=== PATIENT | male | born 1970 | race Caucasian/White ===

== ENCOUNTER → 2017-04-22 09:30 | Outpatient (CLI) | payer OTHER, SELFPAY ==
[2017-04-22 11:26] LABS: AST(SGOT) 23 U/L (15-37); Alanine Aminotransfer ALT/SGPT 43 U/L (16-61); Albumin, Serum 3.6 g/dL (3.2-5.0); Alkaline Phosphatase 79 U/L (45-117); Anion Gap 7 (5-15); BUN 15 mg/dL (7-18); BUN/Creat Ratio 15.6 RATIO (10-20); Calcium,Total 8.5 mg/dL (8.5-10.1); Chloride 103 mmol/L (98-107); Cholesterol 205 mg/dL (200); Creatinine, Serum 0.96 mg/dL (0.70-1.30); EST Glomerular Filtration Rate 89 mL/min (>60); Est Glom Filt Rate - Afr Amer 108 mL/min (>60); Globulin 3.7 g/dL (2.2-4.2); Glucose 95 mg/dL (74-106); High Density Lipoprotein 36 mg/dL; Potassium 4.1 mmol/L (3.5-5.1); Protein, Total 7.3 g/dL (6.4-8.2); Sodium Level 137 mmol/L (136-145); Triglycerides 172 mg/dL; Very Low Density Lipoprotein 34 mg/dL (5-40)
== END ==
PROVIDERS: Family Provider Family Medicine; PCP Family Medicine
DX: E78.2 Mixed hyperlipidemia (principal)
CPT/HCPCS: 36415; 80053; 80061

== ENCOUNTER → 2017-12-02 06:53 | Outpatient (CLI) | payer OTHER, SELFPAY ==
[2017-12-02 07:43] LABS: Cholesterol 219 mg/dL (200); Glucose 98 mg/dL (74-106); High Density Lipoprotein 37 mg/dL; Triglycerides 147 mg/dL; Very Low Density Lipoprotein 29 mg/dL (5-40)
== END ==
PROVIDERS: Family Provider Family Medicine; PCP Family Medicine; Referring Provider Nurse Practitioner Family; Visit Provider Nurse Practitioner Family
DX: Z13.6 Encounter for screening for cardiovascular disorders (principal); Z13.1 Encounter for screening for diabetes mellitus
CPT/HCPCS: 36415; 80061; 82947

== ENCOUNTER 2018-04-29 12:37 | Emergency (ER) | payer OTHER, SELFPAY ==
[2018-04-29 12:40] VITALS: BP 184/104; PULSE 91; RESP 16; TEMP 36.1; O2SAT 97; BMI 46.5
[2018-04-29] MEDS: Ketorolac 15 MG/ML Vial IV (14:17)
[2018-04-29] MEDS: morphine 8 MG/ML Syringe 6 MG IV (14:17)
--- NOTE | 2018-04-29 14:53 | ED.VISSUMM ---
- ER Visit Summary Date of Service: 04/29/18 Chief Complaint: Right low back pain with radiation L3 dermatome History of Present Illness: The patient is a 47 M who was getting out of a truck and slipped. He had a near fall. He thought he tweaked his back. He states the pain is gotten worse. He prefers to lean forward. He straightens up or asked dense his leg backward he complains of pain in an L3 dermatomal distribution. He denies foot drop. He has not gone up any steps since the near fall. He denies bowel bladder dysfunction. He denies saddle paresthesia or anesthesia. He prefers to stand versus sitting. He has no known history of back problems. He denies any cardiac, respiratory, GI or symptoms. He denies any skin lesions. He denies any other symptoms. Physical Examination: Vital signs noted and blood pressure is elevated 184/104. BMI is 46.5. HEENT exam is grossly unremarkable. Heart is regular without murmur, gallop or rub. Lungs are clear to auscultation. Abdomen soft nontender no palpable cell mass abdominal bruit. Positive femoral stretch test right. Patella and ankle reflex are 1-2+ and symmetric. EHL is intact. He is able to walk on his heels and toes. He is able to do a 1 legged squat right and left. He has normal perianal sensation. There is no pain to palpation of the low back. Test Results: None were obtained Emergency Department Course and Treatment: IV was established and he received 50 mg of Toradol IV push and morphine IV push. He was reassessed at 1450. He reports marked improvement. Treatment Plan: Follow-up with corporate care and prescription for NSAID and opiate analgesia Disposition: Discharge to home in stable improved condition with outpatient follow-up Impression: Acute right lower back pain with L3 radiculopathy This note was generated with [employer] dictation software. It may contain incorrect words, spelling, and punctuation that were not noted in review of the chart prior to signing ED Disposition - Plan for ED Patient: Disposition: Home or Assisted Living Instructions: ED Sciatica Prescriptions: Hydrocodone Bitart/Apap 5-325 [[place] 5MG-325MG] 1 tab PO Q6H PRN PRN 3 Days #10 tab PRN Reason: Pain Naproxen [Naprosyn] 500 mg PO BID #14 tab Referrals: Marilyn Hummel, NIKO-C [Primary Care Provider] - [facility] [GROUP OF PHYSICIANS] - 2 Days Additional Instructions: No lifting anything heavier than a gallon of milk, take medication as prescribed. If you have difficulty going up or down steps because of weakness in your quadricep muscle or develop severe pain that is not relieved or improved with medications prescribed return to the emergency department for repeat evaluation. Otherwise, follow-up with [facility] care.
--- NOTE | 2018-04-29 14:58 | ED.DCSUM_ITS ---
- ER Visit Summary Date of Service: 04/29/18 Chief Complaint: Right low back pain with radiation L3 dermatome History of Present Illness: The patient is a 47 M who was getting out of a truck and slipped. He had a near fall. He thought he tweaked his back. He states the pain is gotten worse. He prefers to lean forward. He straightens up or asked dense his leg backward he complains of pain in an L3 dermatomal distribution. He denies foot drop. He has not gone up any steps since the near fall. He denies bowel bladder dysfunction. He denies saddle paresthesia or anesthesia. He prefers to stand versus sitting. He has no known history of back problems. He denies any cardiac, respiratory, GI or symptoms. He denies any skin lesions. He denies any other symptoms. Physical Examination: Vital signs noted and blood pressure is elevated 184/104. BMI is 46.5. HEENT exam is grossly unremarkable. Heart is regular without murmur, gallop or rub. Lungs are clear to auscultation. Abdomen soft nontender no palpable cell mass abdominal bruit. Positive femoral stretch test right. Patella and ankle reflex are 1-2+ and symmetric. EHL is intact. He is able to walk on his heels and toes. He is able to do a 1 legged squat right and left. He has normal perianal sensation. There is no pain to palpation of the low back. Test Results: None were obtained Emergency Department Course and Treatment: IV was established and he received 50 mg of Toradol IV push and morphine IV push. He was reassessed at 1450. He reports marked improvement. Treatment Plan: Follow-up with corporate care and prescription for NSAID and opiate analgesia Disposition: Discharge to home in stable improved condition with outpatient follow-up Impression: Acute right lower back pain with L3 radiculopathy This note was generated with [employer] dictation software. It may contain incorrect words, spelling, and punctuation that were not noted in review of the chart prior to signing ED Disposition - Plan for ED Patient: Disposition: Home or Assisted Living Instructions: ED Sciatica Prescriptions: Hydrocodone Bitart/Apap 5-325 [[place] 5MG-325MG] 1 tab PO Q6H PRN PRN 3 Days #10 tab PRN Reason: Pain Naproxen [Naprosyn] 500 mg PO BID #14 tab Referrals: Marilyn Hummel, NIKO-C [Primary Care Provider] - [facility] [GROUP OF PHYSICIANS] - 2 Days Additional Instructions: No lifting anything heavier than a gallon of milk, take medication as prescribed. If you have difficulty going up or down steps because of weakness in your quadricep muscle or develop severe pain that is not relieved or improved with medications prescribed return to the emergency department for repeat evaluation. Otherwise, follow-up with [facility] care.
[2018-04-29 15:35] VITALS: PULSE 87; RESP 17; O2SAT 98
== END 2018-04-29 15:36 | disposition home or self-care (01) ==
PROVIDERS: Emergency Provider Emergency Medicine; Family Provider Nurse Practitioner Family; PCP Nurse Practitioner Family
DX: M54.5 Low back pain (principal); M54.16 Radiculopathy, lumbar region; W18.43XA Slipping, tripping and stumbling without falling due to stepping from one level to another, initial encounter; Y93.9 Activity, unspecified; Y92.9 Unspecified place or not applicable; E66.9 Obesity, unspecified; Z68.42 Body mass index [BMI] 45.0-49.9, adult
CPT/HCPCS: 96374; 96375; 99283; A4216

== ENCOUNTER → 2018-05-31 06:50 | Outpatient (CLI) | payer OTHER, SELFPAY ==
[2018-05-07 07:52] VITALS: BMI 47.9
[2018-05-31 08:06] LABS: AST(SGOT) 36 U/L (15-37); Alanine Aminotransfer ALT/SGPT 51 U/L (16-61); Albumin, Serum 3.8 g/dL (3.2-5.0); Alkaline Phosphatase 78 U/L (45-117); Anion Gap 5 (5-15); BUN 16 mg/dL (7-18); BUN/Creat Ratio 15.7 RATIO (10-20); Calcium,Total 9.1 mg/dL (8.5-10.1); Chloride 105 mmol/L (98-107); Cholesterol 215 mg/dL (200); Creatinine, Serum 1.02 mg/dL (0.70-1.30); EST Glomerular Filtration Rate 83 mL/min (>60); Est Glom Filt Rate - Afr Amer 100 mL/min (>60); Globulin 3.7 g/dL (2.2-4.2); Glucose 107 mg/dL (74-106); High Density Lipoprotein 40 mg/dL; Potassium 4.1 mmol/L (3.5-5.1); Protein, Total 7.5 g/dL (6.4-8.2); Sodium Level 138 mmol/L (136-145); Triglycerides 237 mg/dL; Very Low Density Lipoprotein 47 mg/dL (5-40)
== END ==
PROVIDERS: Family Provider Nurse Practitioner Family; PCP Nurse Practitioner Family; Referring Provider Nurse Practitioner Family; Visit Provider Nurse Practitioner Family
DX: E78.2 Mixed hyperlipidemia (principal)
CPT/HCPCS: 36415; 80053; 80061

== ENCOUNTER → 2018-07-06 | Outpatient (CLI) | payer OTHER, SELFPAY ==
[2018-05-07 07:52] VITALS: BMI 47.9
== END | disposition home or self-care (01) ==
LOC: SL 19:59
PROVIDERS: Family Provider Nurse Practitioner Family; PCP Nurse Practitioner Family; Visit Provider Nurse Practitioner Family
DX: G47.33 Obstructive sleep apnea (adult) (pediatric) (principal); J31.0 Chronic rhinitis
CPT/HCPCS: 95811

== ENCOUNTER → 2018-07-14 | Outpatient (CLI) | payer OTHER, SELFPAY ==
[2018-05-07 07:52] VITALS: BMI 47.9
--- NOTE | 2018-07-14 16:47 | CT_ITS ---
STUDY: CT MAXILLOFACIAL SINUSES REASON FOR EXAM: Male, 47 years old. Sinusitis. RADIATION DOSAGE (If Supplied By Facility): CTDIvol = ( 33.06 ) mGy, DLP = ( 871.04 ) mGycm TECHNIQUE: The patient was scanned in a multi detector CT scanner. High resolution axial imaging was performed without the administration of intravenous contrast material. Sagittal and coronal images were reconstructed. Individualized dose optimization techniques were used for this CT. COMPARISON: None. FINDINGS: FRONTAL SINUSES: Normal aeration, without mucosal inflammatory disease. ETHMOIDAL SINUSES: Normal aeration, without mucosal inflammatory disease. MAXILLARY SINUSES: Normal aeration, without mucosal inflammatory disease. SPHENOIDAL SINUSES: Normal aeration, without mucosal inflammatory disease. There is patency of the bilateral maxillary infundibuli with normal uncinate processes, ethmoid bullae, and hiatus semilunaris. Normal bilateral middle turbinates. Normal bilateral inferior turbinates. Moderate right nasal septal deviation with a horizontal spur at the level of the pedicle of the right inferior turbinate. There is patency of the bilateral nasal airways. The visualized osseous structures are normal. The visualized bilateral orbital contents are normal. CT/Sinus/Facial Bone IMPRESSION: 1. No CT evidence of acute or chronic sinusitis. 2. Bilaterally patent ostiomeatal units. 3. Moderate right nasal septal deviation with a horizontal spur at the level of the right inferior turbinate pedicle. Electronically Signed: Marquis Shaw MD at 13:51 EDT , Service support ,
== END | disposition home or self-care (01) ==
LOC: CT 16:45
PROVIDERS: Family Provider Nurse Practitioner Family; PCP Nurse Practitioner Family; Referring Provider Otolaryngology; Visit Provider Otolaryngology
DX: J32.9 Chronic sinusitis, unspecified (principal)
CPT/HCPCS: 70486

== ENCOUNTER → 2018-08-30 | Outpatient (CLI) | payer OTHER, SELFPAY ==
[2018-05-07 07:52] VITALS: BMI 47.9
[2018-08-30 09:22] LABS: ALB/GLOB Ratio 0.9 RATIO (0.9-2.4); AST(SGOT) 29 U/L (15-37); Alanine Aminotransfer ALT/SGPT 54 U/L (16-61); Albumin, Serum 3.4 g/dL (3.2-5.0); Alkaline Phosphatase 76 U/L (45-117); Anion Gap 7 (5-15); BUN 10 mg/dL (7-18); BUN/Creat Ratio 9.4 RATIO (10-20); Calcium,Total 8.8 mg/dL (8.5-10.1); Chloride 106 mmol/L (98-107); Cholesterol 210 mg/dL (200); Creatinine, Serum 1.06 mg/dL (0.70-1.30); EST Glomerular Filtration Rate 79 mL/min (>60); Est Glom Filt Rate - Afr Amer 96 mL/min (>60); Globulin 3.7 g/dL (2.2-4.2); Glucose 103 mg/dL (74-106); High Density Lipoprotein 39 mg/dL; Potassium 4.2 mmol/L (3.5-5.1); Protein, Total 7.1 g/dL (6.4-8.2); Sodium Level 142 mmol/L (136-145); Triglycerides 170 mg/dL; Very Low Density Lipoprotein 34 mg/dL (5-40)
[2018-08-30 09:35] LABS: Hemoglobin A1c 5.8 % (4.2-6.3)
== END | disposition home or self-care (01) ==
LOC: LAB 07:49
PROVIDERS: Family Provider Nurse Practitioner Family; PCP Nurse Practitioner Family; Referring Provider Nurse Practitioner Family; Visit Provider Nurse Practitioner Family
DX: E78.2 Mixed hyperlipidemia (principal); R73.01 Impaired fasting glucose
CPT/HCPCS: 36415; 80053; 80061; 83036

== ENCOUNTER → 2018-11-24 07:03 | Outpatient (CLI) | payer OTHER, SELFPAY ==
[2018-05-07 07:52] VITALS: BMI 47.9
[2018-11-24 07:47] LABS: ALB/GLOB Ratio 0.8 RATIO (0.9-2.4); AST(SGOT) 37 U/L (15-37); Alanine Aminotransfer ALT/SGPT 60 U/L (16-61); Albumin, Serum 3.4 g/dL (3.2-5.0); Alkaline Phosphatase 88 U/L (45-117); Anion Gap 3 (5-15); BUN 13 mg/dL (7-18); BUN/Creat Ratio 11.5 RATIO (10-20); Calcium,Total 8.7 mg/dL (8.5-10.1); Chloride 105 mmol/L (98-107); Cholesterol 178 mg/dL (200); Creatinine, Serum 1.13 mg/dL (0.70-1.30); EST Glomerular Filtration Rate 73 mL/min (>60); Est Glom Filt Rate - Afr Amer 89 mL/min (>60); Globulin 4.1 g/dL (2.2-4.2); Glucose 136 mg/dL (74-106); High Density Lipoprotein 35 mg/dL; Potassium 3.9 mmol/L (3.5-5.1); Protein, Total 7.5 g/dL (6.4-8.2); Sodium Level 138 mmol/L (136-145); Triglycerides 211 mg/dL; Very Low Density Lipoprotein 42 mg/dL (5-40)
[2018-11-24 08:20] LABS: Hemoglobin A1c 5.8 % (4.2-6.3)
== END ==
PROVIDERS: Family Provider Nurse Practitioner Family; PCP Nurse Practitioner Family; Referring Provider Nurse Practitioner Family; Visit Provider Nurse Practitioner Family
DX: E78.5 Hyperlipidemia, unspecified (principal); R73.03 Prediabetes
CPT/HCPCS: 36415; 80053; 80061; 83036

== ENCOUNTER → 2018-12-10 08:15 | Outpatient (CLI) | payer OTHER, SELFPAY ==
[2018-12-09 07:55] VITALS: BMI 47.9
--- NOTE | 2018-12-10 08:28 | VDLE_ITS ---
Reason For Study: Left leg swelling RIGHT LEFT GSV is normal. GSV is normal. CFV is compressible, spontaneous, phasic, CFV is compressible, spontaneous, phasic, competent and demonstrates normal competent, and demonstrates normal augmentation. augmentation. FV is compressible, spontaneous, phasic, FV is compressible, spontaneous, phasic, competent and demonstrates normal competent and demonstrates normal augmentation. augmentation. POP V is compressible, spontaneous, phasic, POP V is compressible, spontaneous, phasic, competent and demonstrates normal competent and demonstrates normal augmentation. augmentation. T/P Trunk is compressible. T/P Trunk is compressible. PTV is compressible. PTV is compressible. RT PerV is compressible. LT PerV is compressible. Procedure Exam performed in department. A preliminary report was called and/or faxed to [facility]. Interpretation Summary No evidence for acute deep venous thrombosis bilateral lower extremities with patent and compressible bilateral great saphenous veins. Ordering Physician: Tucker Reese Referring Physician: Marilyn Hummel Performed By: Sera Maynard RVT
== END ==
PROVIDERS: Family Provider Nurse Practitioner Family; PCP Nurse Practitioner Family; Referring Provider Surgery; Visit Provider Surgery
DX: M79.89 Other specified soft tissue disorders (principal)
CPT/HCPCS: 93970

== ENCOUNTER 2018-12-17 07:54 | Day surgery (SDC) | payer OTHER, SELFPAY ==
[2018-12-09 07:55] VITALS: BMI 47.9
--- NOTE | 2018-12-09 07:55 | HP_ITS ---
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 Is patient in pain?: No Allergies No Known Allergies Allergy (Verified 12/09/18 07:42) Medications Naproxen [Naprosyn] 500 mg PO BID #14 tab 04/29/18 [Rx Confirmed 12/09/18] amoxicillin 875 mg-potassium clavulanate 125 mg tablet 1 tab PO Q12H #20 tab 12/09/18 [History Confirmed 12/09/18] PFSH Medical History (Updated 12/09/18 @ 07:52 by Tucker Reese MD) Leg swelling (Acute) Family history of colon cancer in father (Acute) Prediabetes (Acute) CORBIN on CPAP (Acute) Morbid obesity (Acute) Hyperlipidemia (Acute) GERD (gastroesophageal reflux disease) (Acute) Low back strain (Acute) Radiculopathy, lumbar region (Acute) Surgical History (Updated 12/09/18 @ 07:39 by Stephanie Steel) History of placement of ear tubes (Acute) Hx of left inguinal hernia repair (Acute) Hx of tonsillectomy (Acute) Family History (Updated 12/09/18 @ 07:40 by Stephanie Steel) Father Colon cancer Mother Hypertension Thyroid disorder CVA (cerebral vascular accident) Myocardial infarction Social History (Updated 12/09/18 @ 07:55 by Tucker Reese MD) Smoking Status: Never smoker second hand exposure: No alcohol intake: current details: 1x a month substance use type: does not use caffeine: Yes what type of physical activity do you participate in: none, other HPI HPI HPI: KAMALA BRASWELL is a 48 M who presents to the office today for HPI HPI Surgical H&P: Yes HPI: KAMALA STILES, is a 48 M who presents to the office today for family history of colon cancer in his father. He has never had a colonoscopy. For the past year and a half he has had some low back pain when he defecates. Otherwise he does not have the pain. Heat for 3 weeks has had some intermittent swelling of his left lower extremity. 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 He is not sure whether the left leg swelling is secondary to that. He has been utilizing some compression to assist with the swelling. He does not have pain has not had a venous duplex exam. He has not noticed any bright red blood per rectum or melena. No current abdominal pain. Body weight is 325 pounds with a BMI of 47.9. He does have sleep apnea. He utilizes BiPAP. He has recently been on a burst dose of prednisone and decongestants because of fluid involving his left ear with a degree of hearing loss The patient is referred by his primary care provider Marilyn Hummel NP and a written copy of my surgical consult and recommendations will be returned to her ROS General General: Yes weight change and fatigue; no appetite, colon cancer, breast cancer or weakness HEENT HEENT: No difficulty swallowing, eye injury, eye surgery, swollen glands or hoarseness Endo Endocrine: No thyroid disease, diabetes mellitus, thyroid cancer, Hair loss, heat intolerance or cold intolerance Skin Skin: Yes changing moles; no rash Musc Musculoskeletal: No back problems, arthritis, rheumatoid arthritis, gout or joint pain Cardio Cardiovascular: No murmur, pacemaker, heart disease, atrial fibrillation, high blood pressure, heart attack, heart stent, palpitations, shortness of breat with exertion or chest pain Psych Psychiatric: No depression, anxiety or hearing voices Resp Respiratory: Yes shortness of breath, Yes sleep apnea, No cough, No COPD, No asthma, No emphysema, No wheezing Gastro Gastrointestinal: No abdominal pain, No nausea or vomiting, No diarrhea, No constipation, Yes blood in stool, No acid reflux, No hemorrhoids, No ulcers, No gallbladder problem, No black,tarry stools Justin Hematologic: No blood thinners, No blood disorders, No bleeding, No anemia, No blood clots Neuro Neurologic: No weakness Exam Const General: cooperative, comfortable, no acute distress Nutritional Appearance: obese morbidly obese Orientation: alert, awake, oriented x3 Neck Neck: other (Thick) Chest Other: Increased anterior posterior Resp Effort & Inspection: normal respiratory effort Auscultation: clear to auscultation bilaterally Cardio Rate: regular rate Rhythm: regular rhythm Heart Sounds: no murmurs GI Other: Notably overweight. Mild tenderness to deep palpation left lower quadrant no mass or rebound Normal bowel sounds Neuro Cognition: normal cognition Extrem Other: Mild left lower extremity swelling more so than the right. Nontender Psych Affect: normal affect Assessment & Plan Problems 1. Midline low back pain without sciatica, unspecified chronicity M54.5 2. Family history of colon cancer in father Z80.0 3. Leg swelling M79.89 Plan 48-year-old gentleman who has back pain with defecation and a family history of colon cancer in his father. He has never had a previous colonoscopy. I recommend colonoscopy with possible biopsy or polypectomy as indicated. He is aware of the technique, benefits, risks and alternatives. He has sleep apnea. He has had some ear congestion with hearing loss and will be seeing Dr. Young. We will utilize monitored anesthesia care. He has had 3-week onset of left lower extremity swelling more so than the right. BMI is 57. He travels and drives a lot. I recommend venous duplex imaging. I briefly discussed with him his concerns that he is prediabetic. He states that he has been trying to lose weight but instead has placed on 19 pounds. I suggested him that he consider bariatric consultation. I appreciate the opportunity of assisting with the surgical care. Cc: NIKO Escalona M.D., F.A.C.S. Orders Orders: Venous Duplex US - Paul Extrem Today M79.89 Medications New: amoxicillin-pot clavulanate 875-125 mg 1 tab PO Q12H Coding Level of Care Code 36901 Diagnoses Midline low back pain without sciatica, unspecified chronicity M54.5 ??Chronicity: unspecified ??Back pain laterality: midline ??Sciatica presence: without sciatica Family history of colon cancer in father Z80.0 Leg swelling M79.89 12/09/18 0755 <Electronically signed by Tucker hernandez MD> Date _ Tucker Reese MD I have re-examined the patient. There are no clinical changes since date of exam.
--- NOTE | 2018-12-17 | COLBX_PTH ---
PATIENT: KAMALA BRASWELL Jr. LOC: EN U#:[id number] AGE/SX: 48/M ROOM: RE12/17/[address]: Dr. Tucker Reese MD : 1970 BED: DIS: 12/17/2018 SPEC #: [id number] RECD: 12/17/18 14:01 STATUS: JOEY PRATIK #: [id number] LUANN: 12/17/18 00:[address]: Tucker Reese DEPT: SURGICAL PATHOLOGY RECD BY: Gregory Kearns ENTERED: 12/17/18 14:01 SP TYPE: COLON BX DILAN DR: Marilyn Hummel, NIKO-C Tissues: A - Transverse colon B - Transverse colon Procedures: Surgery Specimen Level IV HEADER OPERATION: Colonoscopy (MAC) PRE-OP DIAGNOSIS: Family history colon CA TISSUE SUBMITTED: A - Proximal transverse polyp biopsy, B - Distal transverse polyp biopsy MICROSCOPIC DIAGNOSIS A. Proximal transverse colon polyp, biopsy: Fragments of tubular adenoma. B. Distal transverse colon polyp, biopsy: Fragments of tubular adenoma. WILY:mone 12/20/18 MICROSCOPIC DESCRIPTION Slides are reviewed. GROSS DESCRIPTION A - Received in fixative is one container labeled with the patient's name and designated proximal transverse colon polyp biopsy. The specimen consists of multiple irregular fragments of light baltazar soft tissue that in aggregate measure 0.5 x 0.3 x 0.1 cm. The specimen is totally submitted in one cassette. B - Received in fixative is one container labeled with the patient's name and designated distal transverse colon polyp biopsy. The specimen consists of multiple irregular fragments of light baltazar soft tissue that in aggregate measure 1.2 x 0.3 x 0.1 cm. The specimen is totally submitted in one cassette. / WILY:mone 12/17/18 TC:4 [facility]: [id number] x2
[2018-12-17 08:25] VITALS: BP 157/91; PULSE 67; RESP 16; TEMP 37.2; O2SAT 99; BMI 47.1
[2018-12-17] MEDS: Lactated Ringers 1,000 ML 100 ML IV (08:42)
[2018-12-17 10:36] VITALS: BP 130/80; BP 157/91; PULSE 74; RESP 18; TEMP 36.3; O2SAT 98
--- NOTE | 2018-12-17 10:38 | OP.ENDO_ITS ---
12/17/2018 Marilyn Hummel Re : Colonoscopy procedure for Mary Russ Dear Shaheed This procedure was performed on Monday, December 17, 2018. My impressions and recommendations are as follows: Impressions : - Hemorrhoids found on perianal exam. - One 5 mm polyp in the proximal transverse colon, removed with a cold biopsy forceps. Resected and retrieved. - One 5 mm polyp in the distal transverse colon, removed with a cold biopsy forceps. Resected and retrieved. - Diverticulosis in the sigmoid colon and in the descending colon. Recommendations : - Discharge patient to home. - Resume previous diet. - Continue present medications. - Repeat colonoscopy in 5 years for surveillance based on pathology results. - Telephone my office for pathology results in 1 week. My findings are described in the full procedure note, which is enclosed. If I can be of further assistance, please feel free to contact me at Doctor phone number(s): Work: . Sincerely, Tucker Reese MD 12/17/2018 10:37:59 AM This report has been signed electronically.
[2018-12-17 10:41] VITALS: BP 126/78; BP 157/91; PULSE 72; RESP 18; O2SAT 98
[2018-12-17 10:46] VITALS: BP 125/76; BP 157/91; PULSE 72; RESP 18; O2SAT 98
[2018-12-17 10:50] VITALS: BP 115/78; BP 157/91; PULSE 68; RESP 18; TEMP 36.1; O2SAT 98
[2018-12-17 11:20] VITALS: BP 157/91
== END 2018-12-17 11:23 | disposition home or self-care (01) ==
LOC: EN 07:54 → AC 07:55
PROVIDERS: Family Provider Nurse Practitioner Family; PCP Nurse Practitioner Family; Referring Provider Nurse Practitioner Family; Visit Provider Surgery
PROC: 0DJD8ZZ Inspection of Lower Intestinal Tract, Via Natural or Artificial Opening Endoscopic (ICD-10-PCS; CPT 45378; principal; 2018-12-17 09:10)
DX: D12.3 Benign neoplasm of transverse colon (principal); K64.9 Unspecified hemorrhoids; K57.30 Diverticulosis of large intestine without perforation or abscess without bleeding; Z80.0 Family history of malignant neoplasm of digestive organs; G47.33 Obstructive sleep apnea (adult) (pediatric); E66.01 Morbid (severe) obesity due to excess calories; Z68.42 Body mass index [BMI] 45.0-49.9, adult; K21.9 Gastro-esophageal reflux disease without esophagitis; M54.16 Radiculopathy, lumbar region; M79.89 Other specified soft tissue disorders
CPT/HCPCS: 45380; 88305; J7120

== ENCOUNTER 2019-01-18 07:52 | Day surgery (SDC) | payer OTHER, SELFPAY ==
[2018-12-09 07:55] VITALS: BMI 47.9
--- NOTE | 2019-01-03 09:13 | HP_ITS ---
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 Is patient in pain?: No Allergies No Known Allergies Allergy (Verified 12/09/18 07:42) Medications Naproxen [Naprosyn] 500 mg PO BID #14 tab 04/29/18 [Rx Confirmed 12/09/18] amoxicillin 875 mg-potassium clavulanate 125 mg tablet 1 tab PO Q12H #20 tab 12/09/18 [History Confirmed 12/09/18] PFSH Medical History (Updated 12/09/18 @ 07:52 by Tucker Reese MD) Leg swelling (Acute) Family history of colon cancer in father (Acute) Prediabetes (Acute) CORBIN on CPAP (Acute) Morbid obesity (Acute) Hyperlipidemia (Acute) GERD (gastroesophageal reflux disease) (Acute) Low back strain (Acute) Radiculopathy, lumbar region (Acute) Surgical History (Updated 12/09/18 @ 07:39 by Stephanie Steel) History of placement of ear tubes (Acute) Hx of left inguinal hernia repair (Acute) Hx of tonsillectomy (Acute) Family History (Updated 12/09/18 @ 07:40 by Stephanie Steel) Father Colon cancer Mother Hypertension Thyroid disorder CVA (cerebral vascular accident) Myocardial infarction Social History (Updated 12/09/18 @ 07:55 by Tucker Reese MD) Smoking Status: Never smoker second hand exposure: No alcohol intake: current details: 1x a month substance use type: does not use caffeine: Yes what type of physical activity do you participate in: none, other HPI HPI HPI: KAMALA BRASWELL is a 48 M who presents to the office today for HPI HPI Surgical H&P: Yes HPI: KAMALA STILES, is a 48 M who presents to the office today for family history of colon cancer in his father. He has never had a colonoscopy. For the past year and a half he has had some low back pain when he defecates. Otherwise he does not have the pain. Heat for 3 weeks has had some intermittent swelling of his left lower extremity. 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 He is not sure whether the left leg swelling is secondary to that. He has been utilizing some compression to assist with the swelling. He does not have pain has not had a venous duplex exam. He has not noticed any bright red blood per rectum or melena. No current abdominal pain. Body weight is 325 pounds with a BMI of 47.9. He does have sleep apnea. He utilizes BiPAP. He has recently been on a burst dose of prednisone and decongestants because of fluid involving his left ear with a degree of hearing loss The patient is referred by his primary care provider Marilyn Hummel NP and a written copy of my surgical consult and recommendations will be returned to her ROS General General: Yes weight change and fatigue; no appetite, colon cancer, breast cancer or weakness HEENT HEENT: No difficulty swallowing, eye injury, eye surgery, swollen glands or hoarseness Endo Endocrine: No thyroid disease, diabetes mellitus, thyroid cancer, Hair loss, heat intolerance or cold intolerance Skin Skin: Yes changing moles; no rash Musc Musculoskeletal: No back problems, arthritis, rheumatoid arthritis, gout or joint pain Cardio Cardiovascular: No murmur, pacemaker, heart disease, atrial fibrillation, high blood pressure, heart attack, heart stent, palpitations, shortness of breat with exertion or chest pain Psych Psychiatric: No depression, anxiety or hearing voices Resp Respiratory: Yes shortness of breath, Yes sleep apnea, No cough, No COPD, No asthma, No emphysema, No wheezing Gastro Gastrointestinal: No abdominal pain, No nausea or vomiting, No diarrhea, No constipation, Yes blood in stool, No acid reflux, No hemorrhoids, No ulcers, No gallbladder problem, No black,tarry stools Justin Hematologic: No blood thinners, No blood disorders, No bleeding, No anemia, No blood clots Neuro Neurologic: No weakness Exam Const General: cooperative, comfortable, no acute distress Nutritional Appearance: obese morbidly obese Orientation: alert, awake, oriented x3 Neck Neck: other (Thick) Chest Other: Increased anterior posterior Resp Effort & Inspection: normal respiratory effort Auscultation: clear to auscultation bilaterally Cardio Rate: regular rate Rhythm: regular rhythm Heart Sounds: no murmurs GI Other: Notably overweight. Mild tenderness to deep palpation left lower quadrant no mass or rebound Normal bowel sounds Neuro Cognition: normal cognition Extrem Other: Mild left lower extremity swelling more so than the right. Nontender Psych Affect: normal affect Assessment & Plan Problems 1. Midline low back pain without sciatica, unspecified chronicity M54.5 2. Family history of colon cancer in father Z80.0 3. Leg swelling M79.89 Plan 48-year-old gentleman who has back pain with defecation and a family history of colon cancer in his father. He has never had a previous colonoscopy. I recommend colonoscopy with possible biopsy or polypectomy as indicated. He is aware of the technique, benefits, risks and alternatives. He has sleep apnea. He has had some ear congestion with hearing loss and will be seeing Dr. Young. We will utilize monitored anesthesia care. He has had 3-week onset of left lower extremity swelling more so than the right. BMI is 57. He travels and drives a lot. I recommend venous duplex imaging. I briefly discussed with him his concerns that he is prediabetic. He states that he has been trying to lose weight but instead has placed on 19 pounds. I suggested him that he consider bariatric consultation. I appreciate the opportunity of assisting with the surgical care. Cc: NIKO Escalona M.D., F.A.C.S. Orders Orders: Venous Duplex US - Paul Extrem Today M79.89 Medications New: amoxicillin-pot clavulanate 875-125 mg 1 tab PO Q12H Coding Level of Care Code 67860 Diagnoses Midline low back pain without sciatica, unspecified chronicity M54.5 ??Chronicity: unspecified ??Back pain laterality: midline ??Sciatica presence: without sciatica Family history of colon cancer in father Z80.0 Leg swelling M79.89
[2019-01-18 08:08] VITALS: BP 148/88; PULSE 62; RESP 18; TEMP 36.6; O2SAT 98; BMI 48.2
--- NOTE | 2019-01-18 08:13 | PCM.OPRPT ---
Problem List (1) Chronic serous otitis media of both ears Status: Chronic Report of Operation Date of Procedure: 01/18/19 Pre-Operative Diagnosis: chronic serous otitis media Post-Operative Diagnosis: chronic serous otitis media Surgery/Procedure Performed:: placement of pressure equalization tubes, right and left ear Type of Anesthesia:: General Description of Procedure: on the day of the procedure, after appropriate informed consent was obtained, the patient was brought to the operating room and placed in supine position on the operating table. he was placed under general anesthesia. the left ear was examined using the binocular operating microscope. a speculum was placed. the tympanic membrane was viewed in its entirety and found to be intact. a radial myringotomy was made and a T tube was placed. a serous effusion was suctioned. the right ear was examined using the binocular operating microscope. a speculum was placed. the tympanic membrane was viewed in its entirety and found to be intact. a radial myringotomy was made and a T tube was placed. a serous effusion was suctioned. the patient was transferred to the PACU in stable condition.
[2019-01-18] MEDS: Lactated Ringers 1,000 ML 100 ML IV (08:43)
[2019-01-18] MEDS: Ciprofloxacin 0.3% 2.5ml Bottle 1 DRP (10:00)
[2019-01-18 10:09] VITALS: BP 139/82; PULSE 78; RESP 16; TEMP 36.3; O2SAT 95
[2019-01-18 10:15] VITALS: BP 139/82; BP 140/85; PULSE 73; RESP 16; O2SAT 94
[2019-01-18 10:20] VITALS: BP 136/80; BP 139/82; PULSE 72; RESP 16; O2SAT 94
[2019-01-18 10:24] VITALS: BP 139/82; BP 140/87; PULSE 73; RESP 16; TEMP 36.9; O2SAT 95
--- NOTE | 2019-01-18 10:53 | DCINST_ITS ---
- Discharge Diagnoses Current Active Problems: Current Active and Chronic Problems (Last Updated 12/09/18 @ 07:39 by Stephanie Steel) Chronic serous otitis media of both ears (Chronic) You will use the following diet at home:: No restrictions Discharge Activity: Return to Normal Activity Allergies/Adverse Reactions: Allergies No Known Allergies Allergy (Verified 01/18/19 08:07) Medications to take at Discharge Omeprazole [Prilosec] 20 mg PO DAILY PRN PRN 12/17/18 Primary Care Physician: Marilyn Hummel NP-C [Primary Care Provider] - Test Results: Test results from this visit will be discussed in further detail at your follow- up appointment, if applicable. Please Follow Up With: Kirill Lipscomb MD When: 3 weeks
[2019-01-18 11:06] VITALS: BP 139/82
== END 2019-01-18 11:16 | disposition home or self-care (01) ==
LOC: SDC 07:53 → AC 07:54
PROVIDERS: Family Provider Nurse Practitioner Family; PCP Nurse Practitioner Family; Referring Provider Otolaryngology; Visit Provider Otolaryngology
PROC: (CPT 69436; principal; 2019-01-18 09:20)
DX: H65.23 Chronic serous otitis media, bilateral (principal); H69.83 Other specified disorders of Eustachian tube, bilateral; G47.30 Sleep apnea, unspecified; K21.9 Gastro-esophageal reflux disease without esophagitis
CPT/HCPCS: 00126; 69436; J7120; J2405

== ENCOUNTER → 2019-01-21 05:46 | Outpatient (CLI) | payer OTHER, SELFPAY ==
[2019-01-18 08:08] VITALS: BMI 48.2
--- NOTE | 2019-01-21 12:28 | STRESSREP ---
Stress Test Report Date: 01/21/2019 Procedure: Exercise tolerance test/imaging study Indications: Chest pain Consent: Per the patient Procedure: The patient exercised on a Price protocol for this minutes achieving a peak heart rate of 146 bpm (85 % predicted maximal heart rate) with a peak blood pressure 194/82 mmHg and a peak MET capacity of 7 METs. The baseline ECG demonstrated normal sinus rhythm, nonspecific ST-T changes. The peak exercise ECG demonstrated about [address] depression in the inferior and lateral leads. EKG during recovery revealed return of ST segments to baseline [There were no cardiac dysrhythmias pretest, during exercise, or recovery]. The functional capacity was considered decreased for age. Patient had chest pain at baseline which did not get worse with exercise. The examination was discontinued secondary to shortness of breath. Impression: 1. Technically adequate (percent predicted maximal heart rate greater than 85%) exercise tolerance test 2. Stress test is positive for exercise-induced EKG changes of ischemia 3. The test test is negative for exercise-induced chest pain 4. Functional capacity is decreased for age 5. Nuclear images pending Myocardial perfusion imaging study: Technique: The patient was injected with 15 mCi of technetium 99m Cardiolite and subsequently rest SPECT Cardiolite nuclear imaging was obtained in the horizontal long, vertical long, and short axis views. The patient exercised on a Price protocol. Please see above for details. The patient was injected with 45 mCi of technetium 99m Cardiolite and subsequently stress SPECT Cardiolite nuclear imaging was obtained in the horizontal long, vertical long, and short axis views. A gated Cardiolite study at peak stress was obtained. Interpretation: Rest and stress SPECT Cardiolite nuclear imaging status post realignment, normalization, and attenuation correction, demonstrates decreased radioisotope uptake on the rest and stress images prior to attenuation correction which gets better after attenuation correction suggestive of diaphragmatic attention artifact. There is normal uptake in the anterior wall on the rest images but decreased uptake on the stress images suggestive of anterior wall ischemia. The gated Cardiolite study demonstrates no significant regional wall motion abnormalities. The reported LVEF is 65 %. Impression: 1. There is mild anterior ischemia. 2. The gated Cardiolite study reports an LVEF of 65 %. This note was generated with [employer] software. It may contain incorrect words, spelling, and punctuation that were not noted in checking the note before signing.
== END ==
PROVIDERS: Family Provider Nurse Practitioner Family; PCP Nurse Practitioner Family; Referring Provider Nurse Practitioner Family; Visit Provider Nurse Practitioner Family
DX: R07.9 Chest pain, unspecified (principal)
CPT/HCPCS: 78452; 93017; A9500; A4216

== ENCOUNTER 2019-02-08 07:38 | Day surgery (SDC) | payer OTHER, SELFPAY ==
[2019-02-07 13:36] VITALS: BMI 49.0
--- NOTE | 2019-02-07 15:10 | RAD_ITS ---
STUDY: X-RAY CHEST REASON FOR EXAM: Male, 48 years old. Abnormal stress test and shortness of breath. TECHNIQUE: PA and lateral views of the chest. COMPARISON: None. FINDINGS: The lungs are clear and expanded. There is no demonstrated pleural abnormality. Normal size heart. Normal mediastinum and pardeep. Normal visualized pulmonary arteries. Normal visualized aortic arch and descending thoracic aorta. There are diffuse degenerative changes of the visualized thoracic spine. Normal visualized ribs, clavicles, and shoulders. There is no demonstrated abnormality of the visualized soft tissue structures of the upper abdomen. RAD/Chest PA and Lateral IMPRESSION: Normal x-ray examination of the chest. Electronically Signed: Roland Navarro, at 15:40 EST , Service support ,
[2019-02-07 15:23] LABS: Absolute Lymphocyte Count 2.15 X10^3/uL (0.83-4.51); Absolute Neutrophil Count 5.8 X10^3/uL (2.0-7.7); Basophil# 0.02 X10^3/uL; Basophil% 0.2 % (0-1); Eosinophil# 0.11 X10^3/uL; Eosinophils% 1.2 % (0-5); Hematocrit 42.4 % (40-54); Hemoglobin 14.3 g/dL (13.0-16.5); Lymphocyte # 2.15 X10^3/ul (4.0); Mean Corp Hgb Conc 33.7 g/dL (32-36); Mean Corpuscular Hgb 32.4 pg (27.0-32.0); Mean Corpuscular Volume 95.9 fL (80-94); Monocyte# 0.87 X10^3/uL; Monocyte% 9.7 % (0-10); NRBC Flagged by Analyzer 0 % (0-5); Neutrophil # 5.76 X10^3/uL (2.7-7.7); Neutrophil % 64.3 % (47-70); Platelet Count 225 K/mm3 (150-450); RBC Distribution Width CV 13.1 % (11.6-14.6); RBC Distribution Width SD 46.2 fl (35.1-43.9); Red Blood Count 4.42 M/mm3 (4.6-6.2)
[2019-02-07 15:35] LABS: Prothrombin Time (Protime)PT. 12.9 SECONDS (11.7-14.9)
[2019-02-07 15:36] LABS: Partial Thromboplast Time 24.1 Seconds (24.1-36.2)
[2019-02-07 16:11] LABS: Anion Gap 7 (5-15); BUN 11 mg/dL (7-18); BUN/Creat Ratio 10.9 RATIO (10-20); Calcium,Total 8.6 mg/dL (8.5-10.1); Chloride 106 mmol/L (98-107); Creatinine, Serum 1.01 mg/dL (0.70-1.30); EST Glomerular Filtration Rate 83 mL/min (>60); Est Glom Filt Rate - Afr Amer 101 mL/min (>60); Glucose 83 mg/dL (74-106); Potassium 3.8 mmol/L (3.5-5.1); Sodium Level 139 mmol/L (136-145)
[2019-02-08 07:46] VITALS: BMI 49.0
--- NOTE | 2019-02-08 11:10 | CL.D_ITS ---
Patient Name: KAMALA BRASWELL Study Date: 02/08/2019 Performing: Kalli Arita MD Ht: 68.89 inches 175 cm : 1970 Wt: 332.9 lbs 151 kg Age: 48 Gender: male BSA: 2.56 PROCEDURE(S) PERFORMED [id number]/LV CLINICAL PROFILE AND INDICATIONS Indications: Suspected CAD Heart Failure: None Stress/Imaging Stress Test w/SPECT MPI: Yes Result: Positive Intermediate RiskStress Test with SP ECT MPI: Positive Intermediate Risk CAD Presentations: Unstable angina. CONCLUSIONS No significant CAD. Preserved EF. No significant or MR RECOMMENDATIONS Risk factor modification DESCRIPTION OF PROCEDURE The patient arrived to the procedure lab. The risks and benefits of the procedure as well as a full d escription of our services here and current unavailability of surgical backup were fully explained to the patient and/or their significant other prior to the catheterization. The Timeout was completed, verifying the correct patient and procedure. The patient's procedural site was prepped and draped in the usual fashion. Local anesthetic was given subcutaneously to right groin region with Lidocaine 2%. Using a modified Seldinger technique, LV to AO pullback pressures were then recorded. Left Coronar y Artery selective angiography was performed in multiple views using a 5 Fr. 3.5 Gregory catheter. Left Ventriculography was performed in TODD projection using a 5 Fr.. Right Coronary Artery selective rita ography was then performed in multiple views using a 5 Fr. JR 4 catheter.The arterial sheath was pull ed and a TR Band was applied for hemostasis 18 cc's of air CORONARY ANGIOGRAPHY DOMINANCE: Right Dominant LEFT HEART ASSESSMENT Left Ventricular Ejection Fraction: by LV Gram 65 % Normal LV wall motion LEFT MAIN: Angiographically normal LEFT ANTERIOR DESCENDING ARTERY: Mild luminal irregularities CIRCUMFLEX ARTERY: Angiographically normal RIGHT CORONARY ARTERY: Mild luminal irregularities VALVE FINDINGS: No Aortic Valve Stenosis No Mitral Insufficency COMPLICATIONS No Complications PROCEDURE MEDICATIONS Versed 1 mg IV Fentanyl 50 mcg IV Fentanyl 50 mcg IV Versed 1 mg IV Oxygen: 2 L/min via nasal cannula Heparin diluted in 23cc Heparinized saline. Patient given 10cc IA of this solution. 02/08/2019 09:51: 19 Verapamil 2.5mg, Ntg 100mcgs, 2000 units of Heparin diluted in 23cc Heparinized saline. Patient give n 10cc IA of this solution. 02/08/2019 09:51:19 SUMMARY OF HEMODYNAMIC DATA Time AIR REST ECG 07:54:28 LV 162/0, 13 09:53:47 LV 132/9, 15 09:53:55 LVp 152/-16, 8 09:54:29 AOp 133/82 (103) 09:54:34 AO 122/73 (99) SA 09:55:04 Signed By Kalli Arita MD On 02/08/2019 11:10:05 AM Kalli Arita MD
== END 2019-02-08 13:00 | disposition home or self-care (01) ==
LOC: CLSP 07:39
PROVIDERS: Family Provider Nurse Practitioner Family; PCP Nurse Practitioner Family; Referring Provider Specialist; Visit Provider Specialist
DX: R07.9 Chest pain, unspecified (principal); R06.09 Other forms of dyspnea; R94.39 Abnormal result of other cardiovascular function study; E78.5 Hyperlipidemia, unspecified; I10 Essential (primary) hypertension; G47.33 Obstructive sleep apnea (adult) (pediatric); K21.9 Gastro-esophageal reflux disease without esophagitis; E66.01 Morbid (severe) obesity due to excess calories; Z68.42 Body mass index [BMI] 45.0-49.9, adult; Z79.82 Long term (current) use of aspirin; Z79.899 Other long term (current) drug therapy
CPT/HCPCS: 36415; 71046; 80048; 85025; 85610; 85730; 93458; 99152; 99153; J7040; Q9967; C1769; C1894

== ENCOUNTER → 2019-02-14 10:38 | Outpatient (CLI) | payer OTHER, SELFPAY ==
[2019-02-08 07:46] VITALS: BMI 49.0
[2019-02-14 08:56] VITALS: BMI 49.0
== END ==
PROVIDERS: Family Provider Nurse Practitioner Family; PCP Nurse Practitioner Family; Referring Provider Specialist; Visit Provider Specialist
DX: S55.191A Other specified injury of radial artery at forearm level, right arm, initial encounter (principal)
CPT/HCPCS: 93931

== ENCOUNTER → 2019-02-23 11:53 | Outpatient (CLI) | payer OTHER, SELFPAY ==
[2019-02-08 07:46] VITALS: BMI 49.0
[2019-02-14 08:56] VITALS: BMI 49.0
--- NOTE | 2019-02-23 11:53 | ECHOCS_ITS ---
Reason For Study: LUCAS, CP, Abn Stress test Procedure This was a 2D Doppler, Color Flow transthoracic echocardiogram. Contrast injection was performed. The study was technically difficult. Exam performed in department. Left Ventricle Normal LV size. The estimated ejection fraction is 65 %. No evidence for diastolic dysfunction. No regional wall motion abnormalities noted. Right Ventricle Normal RV size. Normal systolic function. Atria Normal left atrium. Normal right atrium. No doppler evidence for ASD. Mitral Valve There is no mitral valve stenosis. No mitral valve insufficiency. Tricuspid Valve There is no tricuspid stenosis. Trivial tricuspid valve insufficiency. Unable to estimate RV systolic pressure due to insufficient tricuspid regurgitant envelope. Aortic Valve Trisinus/trileaflet aortic valve. There is no aortic stenosis. No aortic valve insufficiency. Pulmonic Valve There is no pulmonic valvular stenosis. No pulmonic valve insufficiency. Great Vessels Normal aortic root. Pericardium/Pleural No pericardial effusion. Medication Diluted definity 2ml given slow IV push to enhance endocardial definition. MMode/2D Measurements & Calculations LVIDd: 4.9 cm IVSd: 1.2 cm Ao root diam: 3.3 cm LVIDs: 3.1 cm LVPWd: 1.1 cm FS: 36.8 % LAV(MOD-bp): 63.1 ml LA A4 area: 21.9 cm2 LA dimension(2D): 4.1 cm LAV(MOD-bp) Indexed: 24.8 ml/m2 LAV(MOD-sp2): 61.6 ml LAV(MOD-sp4): 59.8 ml RA A4 area: 17.1 cm2 Doppler Measurements & Calculations MV E max francisco: 107.1 cm/sec Lat Peak E' Francisco: 12.6 cm/sec Med Peak E' Francisco: 10.3 cm/sec MV A max francisco: 65.6 cm/sec E/E' lat: 8.5 E/E' med: 10.4 MV E/A: 1.6 Ao V2 max: 143.7 cm/sec LV V1 max: 126.8 cm/sec PA V2 max: 151.2 cm/sec Ao max P.3 mmHg LV V1 max P.4 mmHg Ao V2 mean: 102.4 cm/sec Ao mean P.6 mmHg Ao V2 VTI: 26.7 cm Interpretation Summary The study was technically difficult. Diluted definity 2ml given slow IV push to enhance endocardial definition. The estimated ejection fraction is 65 %. No evidence for diastolic dysfunction. The study was technically difficult. Ordering Physician: Kalli Arita Referring Physician: Kalli Arita Performed By: Layne Foss, RDCS, RVT
== END ==
PROVIDERS: Family Provider Nurse Practitioner Family; PCP Nurse Practitioner Family; Referring Provider Specialist; Visit Provider Specialist
DX: R07.9 Chest pain, unspecified (principal); R06.09 Other forms of dyspnea
CPT/HCPCS: 93306; Q9957; A4216; C8929

== ENCOUNTER → 2019-05-16 08:46 | Outpatient (CLI) | payer OTHER, SELFPAY ==
[2019-03-14 13:38] VITALS: BMI 48.6
[2019-05-16 09:23] LABS: Hemoglobin A1c 5.7 % (4.2-6.3)
[2019-05-16 09:29] LABS: ALB/GLOB Ratio 0.9 RATIO (0.9-2.4); AST(SGOT) 24 U/L (15-37); Alanine Aminotransfer ALT/SGPT 42 U/L (16-61); Albumin, Serum 3.5 g/dL (3.2-5.0); Alkaline Phosphatase 79 U/L (45-117); Anion Gap 7 (5-15); BUN 12 mg/dL (7-18); BUN/Creat Ratio 10.7 RATIO (10-20); Calcium,Total 8.3 mg/dL (8.5-10.1); Chloride 103 mmol/L (98-107); Cholesterol 205 mg/dL (200); Creatinine, Serum 1.12 mg/dL (0.70-1.30); EST Glomerular Filtration Rate 74 mL/min (>60); Est Glom Filt Rate - Afr Amer 89 mL/min (>60); Globulin 3.8 g/dL (2.2-4.2); Glucose 99 mg/dL (74-106); High Density Lipoprotein 39 mg/dL; Potassium 3.9 mmol/L (3.5-5.1); Protein, Total 7.3 g/dL (6.4-8.2); Sodium Level 139 mmol/L (136-145); Triglycerides 137 mg/dL; Very Low Density Lipoprotein 27 mg/dL (5-40)
== END ==
PROVIDERS: PCP Nurse Practitioner Family; Referring Provider Nurse Practitioner Family; Visit Provider Nurse Practitioner Family
DX: E78.5 Hyperlipidemia, unspecified (principal); R73.03 Prediabetes
CPT/HCPCS: 36415; 80053; 80061; 83036

== ENCOUNTER → 2019-11-16 07:56 | Outpatient (CLI) | payer OTHER, SELFPAY ==
[2019-03-14 13:38] VITALS: BMI 48.6
[2019-11-16 09:01] LABS: Hemoglobin A1c 5.8 % (3.8-5.6)
[2019-11-16 09:22] LABS: ALB/GLOB Ratio 0.8 RATIO (0.9-2.4); AST(SGOT) 46 U/L (15-37); Alanine Aminotransfer ALT/SGPT 53 U/L (16-61); Albumin, Serum 3.4 g/dL (3.2-5.0); Alkaline Phosphatase 84 U/L (45-117); Anion Gap 5 (5-15); BUN 11 mg/dL (7-18); BUN/Creat Ratio 9.8 RATIO (10-20); Calcium,Total 8.8 mg/dL (8.5-10.1); Chloride 105 mmol/L (98-107); Cholesterol 196 mg/dL (200); Creatinine, Serum 1.12 mg/dL (0.70-1.30); EST Glomerular Filtration Rate 74 mL/min (>60); Est Glom Filt Rate - Afr Amer 89 mL/min (>60); Glucose 101 mg/dL (74-106); High Density Lipoprotein 37 mg/dL; PSA,Total - Annual Screen 0.78 ng/mL (0.00-4.00); Potassium 4.4 mmol/L (3.5-5.1); Protein, Total 7.4 g/dL (6.4-8.2); Sodium Level 139 mmol/L (136-145); T4 Free Direct 1.04 ng/dL (0.76-1.46); Thyroid Stim Hormone (TSH) 1.57 uIU/mL (0.358-3.74); Triglycerides 196 mg/dL; Very Low Density Lipoprotein 39 mg/dL (5-40)
== END ==
PROVIDERS: PCP Nurse Practitioner Family; Referring Provider Nurse Practitioner Family; Visit Provider Nurse Practitioner Family
DX: R63.5 Abnormal weight gain (principal); R73.03 Prediabetes; E78.5 Hyperlipidemia, unspecified; Z12.5 Encounter for screening for malignant neoplasm of prostate
CPT/HCPCS: 36415; 80053; 80061; 83036; 84153; 84439; 84443; G0103

== ENCOUNTER 2020-02-01 10:43 | Outpatient (RCR) | payer OTHER, SELFPAY ==
[2019-03-14 13:38] VITALS: BMI 48.6
== END 2020-02-06 23:59 ==
LOC: EMPH 10:43
PROVIDERS: Referring Provider Family Medicine Geriatric Medicine; Visit Provider Family Medicine Geriatric Medicine
DX: Z03.818 Encounter for observation for suspected exposure to other biological agents ruled out (principal)
CPT/HCPCS: 87426

== ENCOUNTER 2020-03-21 13:05 | Outpatient (RCR) | payer OTHER, SELFPAY ==
[2019-03-14 13:38] VITALS: BMI 48.6
== END 2020-04-08 23:59 ==
LOC: EMPH 13:05
PROVIDERS: Referring Provider Family Medicine Geriatric Medicine; Visit Provider Family Medicine Geriatric Medicine
DX: Z03.818 Encounter for observation for suspected exposure to other biological agents ruled out (principal)
CPT/HCPCS: 87426

== ENCOUNTER 2020-04-25 12:49 | Outpatient (RCR) | payer OTHER, SELFPAY ==
[2019-03-14 13:38] VITALS: BMI 48.6
== END 2020-05-06 23:59 ==
LOC: EMPH 12:49
PROVIDERS: Referring Provider Family Medicine Geriatric Medicine; Visit Provider Family Medicine Geriatric Medicine
DX: Z03.818 Encounter for observation for suspected exposure to other biological agents ruled out (principal)
CPT/HCPCS: 87426

== ENCOUNTER 2020-06-08 07:27 | Outpatient (RCR) | payer OTHER, SELFPAY | END 2020-07-06 23:59 | LOC: EMPH 07:27 | PROVIDERS: Visit Provider Family Medicine Geriatric Medicine | DX: Z03.818 Encounter for observation for suspected exposure to other biological agents ruled out (principal) | CPT/HCPCS: 87426 ==

== ENCOUNTER → 2020-09-14 13:04 | Outpatient (CLI) | payer OTHER, SELFPAY ==
[2020-09-14 14:28] LABS: ALB/GLOB Ratio 1.1 RATIO (0.9-2.4); AST(SGOT) 34 U/L (15-37); Alanine Aminotransfer ALT/SGPT 42 U/L (16-61); Albumin, Serum 3.6 g/dL (3.2-5.0); Alkaline Phosphatase 75 U/L (45-117); Anion Gap 4 (5-15); BUN 14 mg/dL (7-18); BUN/Creat Ratio 13.2 RATIO (10-20); Calcium,Total 8.6 mg/dL (8.5-10.1); Chloride 104 mmol/L (98-107); Cholesterol 209 mg/dL (200); Creatinine, Serum 1.06 mg/dL (0.70-1.30); EST Glomerular Filtration Rate 78 mL/min (>60); Est Glom Filt Rate - Afr Amer 95 mL/min (>60); Globulin 3.4 g/dL (2.2-4.2); Glucose 77 mg/dL (74-106); High Density Lipoprotein 45 mg/dL; PSA,Total- Diagnostic 0.65 ng/mL (0.0-4.0); Sodium Level 136 mmol/L (136-145); T4 Free Direct 0.93 ng/dL (0.76-1.46); Thyroid Stim Hormone (TSH) 1.45 uIU/mL (0.358-3.74); Triglycerides 149 mg/dL; Very Low Density Lipoprotein 30 mg/dL (5-40)
[2020-09-14 14:31] LABS: Hemoglobin A1c 5.1 % (3.8-5.6)
== END ==
PROVIDERS: PCP Nurse Practitioner Family; Referring Provider Nurse Practitioner Family; Visit Provider Nurse Practitioner Family
DX: R73.03 Prediabetes (principal); E78.5 Hyperlipidemia, unspecified; R63.5 Abnormal weight gain; Z12.5 Encounter for screening for malignant neoplasm of prostate
CPT/HCPCS: 36415; 80053; 80061; 83036; 84153; 84439; 84443

== ENCOUNTER 2021-01-14 12:10 | Outpatient (CLI) | payer OTHER, SELFPAY ==
[2021-01-14] MEDS: 0.9% Saline Lock 10 ML Syringe IV (12:31)
[2021-01-14 12:34] VITALS: BP 160/94; PULSE 64; RESP 18; TEMP 36.8; O2SAT 100; BMI 44.6
[2021-01-14 13:21] VITALS: BP 142/81; PULSE 62; RESP 16; TEMP 36.7; O2SAT 100
[2021-01-14 14:21] VITALS: BP 140/83; PULSE 55; RESP 16; TEMP 36.6; O2SAT 100
== END 2021-01-14 14:28 | disposition home or self-care (01) ==
LOC: MS3OUT 12:12 → MS3 12:12
PROVIDERS: PCP Nurse Practitioner Family; Referring Provider Nurse Practitioner Adult Health; Visit Provider Nurse Practitioner Adult Health
DX: Z23 Encounter for immunization (principal); U07.1 COVID-19
CPT/HCPCS: J7050; M0245; Q0245; A4216

== ENCOUNTER → 2021-03-04 06:31 | Outpatient (CLI) | payer OTHER, SELFPAY ==
--- NOTE | 2021-03-04 06:37 | MRI_ITS ---
STUDY: MRI RIGHT ANKLE WITHOUT CONTRAST REASON FOR EXAM: Male, 50 years old. ACHILLES TENDON TEAR TECHNIQUE: Standardized fat and water weighted pulse sequences were obtained in all 3 orthogonal planes. COMPARISON: None. FINDINGS: Normal subcutis adipose space. Mild fluid distention of the posterior tibial tendon sheath noted. Normal posterior tibialis tendon. Normal flexor digitorum longus tendon. Normal flexor hallucis longus tendon. Normal peroneus longus and brevis tendons. Normal tibialis anterior tendon. Normal extensor hallucis longus tendon. Normal extensor digitorum longus tendons. There is moderate tendinosis with intratendinous tendon degeneration of the Achilles tendon without a partial or full-thickness tear. Normal plantar fascia. A small plantar calcaneal spur is present with mild thickening and intrasubstance degenerative signal in the plantar fascia central cord directly beneath the spur. Normal remaining aspects of the plantar fascia. No visualized bursitis or tearing or edema in the underlying bone. Small ankle joint effusion noted. Normal intrinsic muscles of the rearfoot. Normal distal tibiofibular syndesmotic ligamentous complex. Normal lateral ligamentous complex. Normal subtalar ligaments and sinus tarsi. Normal deltoid ligamentous complexes. Normal plantar calcaneonavicular (spring) ligament. Normal tibiotalar articulation. Normal talar dome. Normal subtalar articulations. Normal talonavicular articulation. Normal calcaneocuboid articulation. Normal navicular-cuneiform articulations. MRI/Lower Ext Joint Only (Routine) IMPRESSION: 1. Mild to moderate Achilles tendinosis 2. Small plantar calcaneal spur with mild thickening and intrasubstance degeneration of the central cord of plantar fascia 3. Small ankle joint effusion 4. Mild posterior tibial tenosynovitis Electronically Signed: Asif Hernandez MD at 20:44 EST , Service support ,
== END ==
PROVIDERS: PCP Nurse Practitioner Family; Referring Provider Podiatrist; Visit Provider Podiatrist
DX: M76.61 Achilles tendinitis, right leg (principal); M79.604 Pain in right leg
CPT/HCPCS: 73721

== ENCOUNTER 2021-03-18 07:16 | Outpatient (CLI) | payer OTHER, SELFPAY ==
[2021-03-18 09:16] LABS: ALB/GLOB Ratio 0.8 RATIO (0.9-2.4); AST(SGOT) 26 U/L (15-37); Alanine Aminotransfer ALT/SGPT 38 U/L (16-61); Albumin, Serum 3.5 g/dL (3.2-5.0); Alkaline Phosphatase 79 U/L (45-117); Anion Gap 8 (5-15); BUN 14 mg/dL (7-18); Calcium,Total 8.7 mg/dL (8.5-10.1); Chloride 105 mmol/L (98-107); Cholesterol 228 mg/dL (200); Creatinine, Serum 1.08 mg/dL (0.70-1.30); EST Glomerular Filtration Rate 77 mL/min (>60); Est Glom Filt Rate - Afr Amer 93 mL/min (>60); Globulin 4.2 g/dL (2.2-4.2); Glucose 93 mg/dL (74-106); High Density Lipoprotein 39 mg/dL; Potassium 4.1 mmol/L (3.5-5.1); Protein, Total 7.7 g/dL (6.4-8.2); Sodium Level 140 mmol/L (136-145); Triglycerides 136 mg/dL; Very Low Density Lipoprotein 27 mg/dL (5-40)
[2021-03-18 13:30] LABS: Hemoglobin A1c 5.3 % (3.8-5.6)
== END 2021-03-18 23:59 | disposition short-term general hospital (02) ==
LOC: LAB 07:19
PROVIDERS: PCP Nurse Practitioner Family; Referring Provider Nurse Practitioner Family; Visit Provider Nurse Practitioner Family
DX: R73.03 Prediabetes (principal); E78.5 Hyperlipidemia, unspecified
CPT/HCPCS: 36415; 80053; 80061; 83036

== ENCOUNTER 2021-04-22 15:10 | Outpatient (RCR) | payer OTHER, SELFPAY | END 2021-05-06 23:59 | LOC: EMPH 15:10 | PROVIDERS: PCP Nurse Practitioner Family; Visit Provider Family Medicine Geriatric Medicine | DX: Z03.818 Encounter for observation for suspected exposure to other biological agents ruled out (principal) | CPT/HCPCS: 87426 ==

== ENCOUNTER → 2021-08-06 | Outpatient (CLI) | payer OTHER, SELFPAY ==
[2021-08-06 16:38] LABS: Hemoglobin A1c 5.4 % (3.8-5.6)
== END | disposition home or self-care (01) ==
PROVIDERS: PCP Nurse Practitioner Family; Visit Provider Nurse Practitioner Family
DX: R73.03 Prediabetes (principal); E78.5 Hyperlipidemia, unspecified; Z12.5 Encounter for screening for malignant neoplasm of prostate
CPT/HCPCS: 36415; 83036

== ENCOUNTER → 2021-08-29 | Outpatient (CLI) | payer OTHER, SELFPAY | END | disposition home or self-care (01) | LOC: LABSPEC 09:29 | PROVIDERS: PCP Nurse Practitioner Family; Visit Provider Family Medicine Geriatric Medicine | DX: Z03.818 Encounter for observation for suspected exposure to other biological agents ruled out (principal) | CPT/HCPCS: 87811 ==

== ENCOUNTER → 2021-10-22 | Outpatient (CLI) | payer OTHER, SELFPAY ==
[2021-10-22 07:42] LABS: ALB/GLOB Ratio 0.9 RATIO (0.9-2.4); AST(SGOT) 27 U/L (15-37); Alanine Aminotransfer ALT/SGPT 40 U/L (16-61); Albumin, Serum 3.5 g/dL (3.2-5.0); Alkaline Phosphatase 77 U/L (45-117); Anion Gap 5 (5-15); BUN 17 mg/dL (7-18); BUN/Creat Ratio 13.7 RATIO (10-20); Calcium,Total 9.1 mg/dL (8.5-10.1); Chloride 106 mmol/L (98-107); Cholesterol 212 mg/dL (200); Creatinine, Serum 1.24 mg/dL (0.70-1.30); EST Glomerular Filtration Rate 65 mL/min (>60); Est Glom Filt Rate - Afr Amer 79 mL/min (>60); Globulin 4.1 g/dL (2.2-4.2); Glucose 98 mg/dL (74-106); High Density Lipoprotein 38 mg/dL; PSA,Total - Annual Screen 0.79 ng/mL (0.00-4.00); Potassium 4.2 mmol/L (3.5-5.1); Protein, Total 7.6 g/dL (6.4-8.2); Sodium Level 139 mmol/L (136-145); Triglycerides 150 mg/dL; Very Low Density Lipoprotein 30 mg/dL (5-40)
== END | disposition home or self-care (01) ==
PROVIDERS: PCP Nurse Practitioner Family; Referring Provider Nurse Practitioner Family; Visit Provider Nurse Practitioner Family
DX: E78.5 Hyperlipidemia, unspecified (principal); Z12.5 Encounter for screening for malignant neoplasm of prostate
CPT/HCPCS: 36415; 80053; 80061; 84153; G0103

== ENCOUNTER 2022-01-23 06:21 | Outpatient (CLI) | payer OTHER, SELFPAY ==
--- NOTE | 2022-01-23 06:23 | CDU_ITS ---
Reason For Study: DIZZINESS Rt. Velocities/BP Lt. Velocities/BP Prox CCA 88.1/21.1 cm/sec. Prox CCA 97.9/23.0 cm/sec. Mid CCA 83.4/21.1 cm/sec. Mid CCA 99.7/21.2 cm/sec. Dist CCA 71.1/23.9 cm/sec. Dist CCA 81.5/26.7 cm/sec. Prox ICA 75.4/15.2 cm/sec. Prox ICA 63.4/17.9 cm/sec. Mid ICA 88.2/22.5 cm/sec. Mid ICA 59.3/22.5 cm/sec. Dist ICA 47.6/20.1 cm/sec. Dist ICA 85.1/32.3 cm/sec. Rt. ICA/CCA = 1.1. Lt. ICA/CCA = 0.9. Prox ECA 137.5/27.9 cm/sec. Prox ECA 108.9/13.9 cm/sec. Rt. Vert. 14.3/6.0 cm/sec. Lt. Vert. 43.8/14.7 cm/sec. Right Extracranial There is no significant atherosclerotic plaque noted in the right common carotid artery. There is intimal thickening but no significant atherosclerotic plaque noted in the right internal carotid artery. There is intimal thickening but no significant atherosclerotic plaque noted in the right external carotid artery. Antegrade flow is noted in the right vertebral artery. Left Extracranial There is intimal thickening but no significant atherosclerotic plaque noted in the left common carotid artery. There is heterogeneous, smooth atherosclerotic plaque noted in the left internal carotid artery. There is heterogeneous, smooth atherosclerotic plaque noted in the left external carotid artery. Antegrade flow is noted in the left vertebral artery. Procedure Carotid Duplex [id number]. This is a Carotid Duplex examination using B-mode, color flow and specral Doppler. The exam was diagnostic. Exam performed in department. VL/Carotid Duplex Ultrasound Interpretation Summary Normal right extracranial internal carotid. Mild (<50%) stenosis left extracranial internal carotid. Patent and antegrade vertebrals bilaterally. Ordering Physician: Evelio Foss Performed By: Mario Ayoub RVT
--- NOTE | 2022-01-27 09:11 | STRESSREP ---
Stress Test Report Date: 01/23/2022 Procedure: Exercise tolerance test/imaging study Indications: Chest tightness Consent: Per the patient Procedure: The patient exercised on a Price protocol for 8 minutes and 30 seconds achieving a peak heart rate of 160 bpm (95% predicted maximal heart rate) with a peak blood pressure 178/80 mmHg and a peak MET capacity of 10.4 METs. The baseline ECG demonstrated normal sinus rhythm. The peak exercise ECG demonstrated sinus tachycardia with about [address] depressions in the inferior and lateral leads. [There were no cardiac dysrhythmias pretest, during exercise, or recovery]. The functional capacity was considered normal for age. Patient had neck tightness at baseline which worsened with exercise. Patient also had some 2/10 chest tightness early in recovery that resolved later during recovery. The examination was discontinued secondary to achieving target heart rate. Impression: 1. Technically adequate (percent predicted maximal heart rate greater than 85%) exercise tolerance test 2. Stress test is positive for exercise-induced EKG changes of ischemia 3. The test test is positive for exercise-induced chest pain 4. Functional capacity is normal for age 5. Nuclear images pending Myocardial perfusion imaging study: Technique: The patient was injected with 8.9 mCi of technetium 99m Cardiolite and subsequently rest SPECT Cardiolite nuclear imaging was obtained in the horizontal long, vertical long, and short axis views. The patient exercised on a Price protocol. Please see above for details. The patient was injected with 31.1 mCi of technetium 99m Cardiolite and subsequently stress SPECT Cardiolite nuclear imaging was obtained in the horizontal long, vertical long, and short axis views. A gated Cardiolite study at peak stress was obtained. Interpretation: Rest and stress SPECT Cardiolite nuclear imaging status post realignment, normalization, and attenuation correction, demonstrates no evidence of significant ischemia or infarction. The gated Cardiolite study demonstrates no significant regional wall motion abnormalities. The reported LVEF is 66%. Impression: 1. There is no evidence of significant ischemia or infarction on the nuclear portion of the test. Please see above for the EKG portion of the stress test. 2. The gated Cardiolite study reports an LVEF of 66%. This note was generated with [employer] software. It may contain incorrect words, spelling, and punctuation that were not noted in checking the note before signing.
== END 2022-01-23 23:59 | disposition home or self-care (01) ==
LOC: CVS 06:22
PROVIDERS: PCP Nurse Practitioner Family; Visit Provider Nurse Practitioner Family
DX: I65.22 Occlusion and stenosis of left carotid artery (principal); R07.9 Chest pain, unspecified; I10 Essential (primary) hypertension; E78.5 Hyperlipidemia, unspecified
CPT/HCPCS: 78452; 93017; 93880; A9500; A4216

== ENCOUNTER → 2022-02-15 | Outpatient (CLI) | payer OTHER, SELFPAY ==
--- NOTE | 2022-02-15 08:40 | RAD_ITS ---
HISTORY: Preoperative-[facility]. TECHNIQUE: XR Chest 2 Views. COMPARISON: 02/07/2019. FINDINGS: CARDIOMEDIASTINAL BORDERS: Cardiac silhouette within normal limits in size. Mediastinal contour unremarkable. LUNGS: Radiographically clear. PLEURA: No pleural effusion or pneumothorax seen. OSSEOUS STRUCTURES: Spinal osteophytes observed. RAD/Chest PA and Lateral IMPRESSION: No acute cardiopulmonary process identified. Electronically Signed: Adelina Mars MD at 8:54 EST ,
[2022-02-15 09:37] LABS: Absolute Lymphocyte Count 2.02 X10^3/uL (0.83-4.51); Absolute Neutrophil Count 6.2 X10^3/uL (2.0-7.7); Basophil# 0.03 X10^3/uL; Basophil% 0.3 % (0-1); Eosinophil# 0.13 X10^3/uL; Eosinophils% 1.4 % (0-5); Hematocrit 42.9 % (40-54); Hemoglobin 14.4 g/dL (13.0-16.5); Lymphocyte # 2.02 X10^3/ul (0.83-4.51); Lymphocyte % 21.8 % (19-41); Mean Corp Hgb Conc 33.6 g/dL (32-36); Mean Corpuscular Hgb 31.9 pg (27.0-32.0); Mean Corpuscular Volume 95.1 fL (80-94); Mean Platelet Vol. 11.2 fl (6.2-12.0); Monocyte# 0.79 X10^3/uL; Monocyte% 8.5 % (0-10); NRBC Flagged by Analyzer 0 % (0-5); Neutrophil # 6.23 X10^3/uL (2.7-7.7); Neutrophil % 67.2 % (47-70); Platelet Count 238 K/mm3 (150-450); RBC Distribution Width CV 13.4 % (11.6-14.6); RBC Distribution Width SD 46.5 fl (35.1-43.9); Red Blood Count 4.51 M/mm3 (4.6-6.2); White Blood Count 9.3 K/mm3 (4.4-11.0)
[2022-02-15 10:11] LABS: Anion Gap 4 (5-15); BUN 14 mg/dL (7-18); BUN/Creat Ratio 12.4 RATIO (10-20); Calcium,Total 9.2 mg/dL (8.5-10.1); Chloride 107 mmol/L (98-107); Creatinine, Serum 1.13 mg/dL (0.70-1.30); EST Glomerular Filtration Rate 72 mL/min (>60); Est Glom Filt Rate - Afr Amer 88 mL/min (>60); Glucose 103 mg/dL (74-106); Potassium 3.9 mmol/L (3.5-5.1); Sodium Level 139 mmol/L (136-145)
== END | disposition home or self-care (01) ==
LOC: LAB 08:29
PROVIDERS: PCP Nurse Practitioner Family; Referring Provider Nurse Practitioner Family; Visit Provider Nurse Practitioner Family
DX: R94.39 Abnormal result of other cardiovascular function study (principal); I10 Essential (primary) hypertension; R07.9 Chest pain, unspecified; R06.00 Dyspnea, unspecified; E78.5 Hyperlipidemia, unspecified
CPT/HCPCS: 36415; 71046; 80048; 85025

== ENCOUNTER 2022-02-19 08:43 | Day surgery (SDC) | payer OTHER, SELFPAY ==
--- NOTE | 2022-02-13 09:48 | PCM.HP.BLA ---
History and Physical Date of Admission: 02/19/22 History of Present Illness Details: 51-year-old male with past medical history of dyslipidemia, hypertension who was originally referred to us because of chest pain and an abnormal stress test.? The chest discomfort was retrosternal, felt like a tightness, worse with activity.? Stress test was positive for ischemia in the anterior wall. EF was 65%.? He underwent coronary angiography on 02/08/2019 which did not reveal any significant CAD.? 2D echo was unremarkable as well.? Patient had radial artery occlusion after the coronary angiography.? He was started on Eliquis and the forearm claudication that he had resolved and patient has started an exercise program. Patient underwent a stress test on 01/23/2022 that was considered to be abnormal.? There was noted be [address] depression in the inferior and lateral leads.? He did acknowledge exercise-induced chest discomfort.? On account of abnormal stress test, symptoms, and risk factors, it was decided to proceed with heart catheterization. He states having eye spasms, followed by vision changes with blurry vision and headache. He notes left neck discomfort that has not resolved. He states intermittent chest tightness. This was located mid sternal. This was noted in the middle of the night when he got up to use the restroom. He rated this a 1-2/10. This was associated with SOB. This worsened when he returned to bed in such that he rate it a 7-8/10. He slept on a recliner. He feels this to be different previous GERD symptoms. He states took Tums without improvement. This tightness has continued at 2-3/10. This is worse with activity and wearing mask. This improves with rest and relaxation. He states intermittent blurry vision visit. He states his forehead and head feel hot all the time. Intake Vital Signs Intake Visit Reasons:?[facility] Allergies No Known Allergies Allergy (Verified 01/13/22 14:49) Medications See EMR [facility] Medical History? Abnormal stress test Family history of colon cancer in father GERD (gastroesophageal reflux disease) Hyperlipidemia Leg swelling Low back strain Morbid obesity CORBIN on CPAP Prediabetes Radiculopathy, lumbar region Surgical History? History of placement of ear tubes (~01/18/19) Hx of left inguinal hernia repair Hx of tonsillectomy Family History? Father Colon cancerMother Hypertension Thyroid disorder CVA (cerebral vascular accident) Myocardial infarction Social History? Smoking Status:? Never smoker second hand exposure:? No alcohol intake:? current details:? 1x a month substance use type:? does not use caffeine:? Yes Type: coffee and tea Number of servings: 2 what type of physical activity do you participate in:? none and other ROS Const Const: Negative for fatigue, weakness, body ache, fever(s) or chills Eyes Eyes: Positive for change in vision ENT ENT: Negative for dizziness or Nosebleed/epistaxis Cardio Chest Pain: Yes Palpitations: No Edema: None Muscle aches with walking: None Resp Respiratory: Positive for SOB with activity and Cough; Negative for SOB at rest, SOB orthopnea\SOB lying down or paroxysmal nocturnal dyspnea GI GI: Negative nausea, vomiting blood/hematemesis, bright, red blood in stools or black,tarry stools : Negative for hematuria or frequent nighttime urination/ nocturia Musc Musc: Negative for muscle aches/ myalgia Skin Skin: Negative non-healing lesions or rash Neuro Neuro: Negative for dizziness, lightheadedness, near syncope, syncope, orthostatic symptoms or weakness Endo Endo: Negative for fatigue Allergy Allergy/Immunology: Negative for rash Cardiology Exam Const Appearance: cooperative, healthy appearing, comfortable and no acute distress Nutritional Appearance: well nourished and obese Orientation: alert, awake and oriented x3 Head Head: normal to inspection Ears: hearing grossly normal bilaterally Nose: external nose normal Face and Sinus: face symmetric Mouth: moist mucous membranes Eyes General: appearance normal, both eyes and all related structures Eyelids: eyelids normal EOM: EOM intact bilaterally Neck Neck: normal visual inspection and no JVD Carotids: normal carotid upstroke Chest Chest inspection: normal inspection of the chest, symmetric chest movement and normal respiratory effort; Negative cough Auscultation: Bilateral: Diminished Lung Sounds Cardio Rate: regular rate Rhythm: regular rhythm Heart sounds: S1 normal and S2 normal; Negative rub, gallop or murmur GI GI: normal to inspection and obese Neuro General: patient alert, patient awake, patient oriented x3 and CN's II-XI intact bilaterally Skin Skin: no rashes or lesions noted Extremities Pulses: Normal: Right Posterior Tibial Pulse, Left Posterior Tibial Pulse, Right Radial Pulse and Left Radial Pulse Lower Extremity Edema: None: Bilateral Psych Psychological: normal affect Supplemental Info Supplemental Information Echocardiogram from 02/23/2019: Interpretation Summary The study was technically difficult. Diluted definity 2ml given slow IV push to enhance endocardial definition. The estimated ejection fraction is 65 %. No evidence for diastolic dysfunction. The study was technically difficult. Stress Test Report Date: 01/23/2022 ? Procedure: Exercise tolerance test/imaging study ? Indications: Chest tightness ? Consent: Per the patient ? Procedure: ? The patient exercised on a Price protocol for 8 minutes and 30 seconds achieving a peak heart rate of 160 bpm (95% predicted maximal heart rate) with a peak blood pressure 178/80 mmHg and a peak MET capacity of 10.4 METs. ? The baseline ECG demonstrated normal sinus rhythm.? The peak exercise ECG demonstrated sinus tachycardia with about [address] depressions in the inferior and lateral leads.? [There were no cardiac dysrhythmias pretest, during exercise, or recovery].? ? The functional capacity was considered normal for age. ? Patient had neck tightness at baseline which worsened with exercise.? Patient also had some 2/10 chest tightness early in recovery that resolved later during recovery. ? The examination was discontinued secondary to achieving target heart rate. ? Impression: ? 1.? Technically adequate (percent predicted maximal heart rate greater than 85%) exercise tolerance test 2.? Stress test is positive for exercise-induced EKG changes of ischemia 3.? The test test is positive for exercise-induced chest pain 4.? Functional capacity is normal for age 5.? Nuclear images pending ? Myocardial perfusion imaging study: ? Technique: ? The patient was injected with 8.9 mCi of technetium 99m Cardiolite and subsequently rest SPECT Cardiolite nuclear imaging was obtained in the horizontal long, vertical long, and short axis views. The patient exercised on a Price protocol.? Please see above for details. The patient was injected with 31.1 mCi of technetium 99m Cardiolite and subsequently stress SPECT Cardiolite nuclear imaging was obtained in the horizontal long, vertical long, and short axis views.? A gated Cardiolite study at peak stress was obtained. ? Interpretation: ? Rest and stress SPECT Cardiolite nuclear imaging status post realignment, normalization, and attenuation correction, demonstrates no evidence of significant ischemia or infarction.? The gated Cardiolite study demonstrates no significant regional wall motion abnormalities.? The reported LVEF is 66%. ? Impression: ? 1.? There is no evidence of significant ischemia or infarction on the nuclear portion of the test.? Please see above for the EKG portion of the stress test. 2.? The gated Cardiolite study reports an LVEF of 66%. Heart catheterization from 02/08/2019: CONCLUSIONS No significant CAD. Preserved EF. No significant or MR RECOMMENDATIONS Risk factor modification CORONARY ANGIOGRAPHY DOMINANCE:? Right Dominant LEFT HEART ASSESSMENT Left Ventricular Ejection Fraction: by LV Gram 65 % Normal LV wall motion LEFT MAIN: Angiographically normal LEFT ANTERIOR DESCENDING ARTERY: Mild luminal irregularities CIRCUMFLEX ARTERY: Angiographically normal RIGHT CORONARY ARTERY: Mild luminal irregularities VALVE FINDINGS: No Aortic Valve Stenosis No Mitral Insufficency COMPLICATIONS No Complications Labs: ?? ? LDL Cholesterol 144 mg/dL (0-130)? H ?? ? HDL Cholesterol 38 mg/dL (40-) L ?? ? Triglycerides 150 mg/dL (-199) ?? ? VLDL Cholesterol 30 mg/dL (5-40) Diagnostics: ?? ? No Data to Display Pulmonary: ?? ? No Data to Display Assessment and Plan Assessment and Plan (1) Chest pain: ?Status:?Acute ?Qualifiers: ?Chest pain type:?unspecified? Qualified Code(s):?R07.9 - Chest pain, unspecified ?Plan: Heart catheterization from February 2019 showed no significant coronary artery disease.? Echocardiogram in February 2019 showed ejection fraction of 65%.? The exact etiology of chest discomfort is unclear.? This wasTo assess his discomfort further, he underwent a stress test on 01/27/2022 showed to be abnormal. He will proceed with heart catheterization. Depending on test results, further recommendation will be made. (2) Hypertension: ?Status:?Chronic ?Qualifiers: ?Hypertension type:?essential hypertension? Qualified Code(s):?I10 - Essential (primary) hypertension ?Plan: His blood pressure was elevated in office.? He does acknowledge a nonproductive cough that may be related to lisinopril.? Thus, his lisinopril was changed to losartan therapy.? This will be adjusted as necessary based on blood pressure. (3) Hyperlipidemia: ?Status:?Chronic ?Qualifiers: ?Hyperlipidemia type:?unspecified? Qualified Code(s):?E78.5 - Hyperlipidemia, unspecified ?Plan: He will continue risk factor and lifestyle modification.
[2022-02-18 07:17] VITALS: BMI 47.9
--- NOTE | 2022-02-19 12:04 | CL.D_ITS ---
Patient Name: KAMALA BRASWELL Study Date: 02/19/2022 Performing: Kalli Arita MD Ht: 69 inches 175.26 cm : 1970 Wt: 325.01 lbs 147.42 kg Age: 51 Gender: male BSA: 2.54 PROCEDURE(S) PERFORMED DC01-(36390)LHC/COR/LV CLINICAL PROFILE AND INDICATIONS Indications: Suspected CAD Heart Failure: None CAD Presentations: Unstable angina. CONCLUSIONS Non obstructive coronary arteries RECOMMENDATIONS DESCRIPTION OF PROCEDURE The patient arrived to the procedure lab. The risks and benefits of the procedure as well as a full description of our services here and current unavailability of surgical backup were fully explained to the patient and/or their significant other prior to the catheterization. The Timeout was completed, verifying the correct patient and procedure. The patient's procedural site was prepped and draped in the usual fashion. Local anesthetic was given subcutaneously to right groin region with Lidocaine 2%. Using a modified Seldinger technique, arterial access was obtained via the right femoral artery, a 5Fr sheath was inserted. Left Coronary Artery selective angiography was performed in multiple views using a 5 Fr. JL4 catheter. Left Ventriculography was performed in TODD projection using a 5 Fr. JR 4.0. LV to AO pullback pressures were then recorded. Right Coronary Artery selective angiography was then performed in multiple views using a 5 Fr. JR 4 catheter.Contrast was injected through the sheath and the Right Iliac and Femoral artery were assessed for possible closure device. CORONARY ANGIOGRAPHY DOMINANCE: Right Dominant LEFT HEART ASSESSMENT Left Ventricular Ejection Fraction: by LV Gram 60 % Normal LV wall motion LEFT MAIN: Mild luminal irregularities LEFT ANTERIOR DESCENDING ARTERY: Mild luminal irregularities CIRCUMFLEX ARTERY: Mild luminal irregularities RIGHT CORONARY ARTERY: Mild luminal irregularities VALVE FINDINGS: No Aortic Valve Stenosis No Mitral Insufficency COMPLICATIONS No Complications PROCEDURE MEDICATIONS Fentanyl 50 mcg IV Versed 1 mg IV Oxygen: 2 L/min via nasal cannula Baby Aspirin (81mg) 1 Tabs PO @ 02/19/2022 09:01:17 SUMMARY OF HEMODYNAMIC DATA Time AIR REST ECG 09:01:42 AO 157/96 (121) SA 10:48:57 LV 147/-9, 17 10:54:25 LV 142/-8, 18 10:54:32 LV 157/1, 4 10:55:43 LVp 160/-1, 17 10:55:48 AOp 168/79 (119) 10:55:55 AIR REST 12:03:17 Signed By Kalli Arita MD On 02/19/2022 12:03:28 Kalli Arita MD
== END 2022-02-19 13:29 | disposition home or self-care (01) ==
LOC: CLSP 08:44
PROVIDERS: PCP Nurse Practitioner Family; Referring Provider Specialist; Visit Provider Specialist
DX: I25.110 Atherosclerotic heart disease of native coronary artery with unstable angina pectoris (principal); R94.39 Abnormal result of other cardiovascular function study; I10 Essential (primary) hypertension; E78.5 Hyperlipidemia, unspecified; G47.33 Obstructive sleep apnea (adult) (pediatric); E66.9 Obesity, unspecified; Z79.82 Long term (current) use of aspirin; Z79.899 Other long term (current) drug therapy
CPT/HCPCS: 93458; 99152; 99153; J7040; Q9967; C1760; C1769

== ENCOUNTER → 2022-04-28 | Outpatient (CLI) | payer OTHER, SELFPAY ==
--- NOTE | 2022-04-28 13:18 | ADUL_ITS ---
Reason For Study: Pseudo Check Right Velocities Ext. Iliac Artery, dist = 134.5 cm./sec. Common Femoral Artery, mid = 111.2 cm./sec. Supf Femoral Artery, prox = 134.5 cm./sec. Profunda Femoral Artery = 60.3 cm./sec. Rt CFV and Proximal SFV are compressible, phasic, competent and demonstrate normal augmentation. No evidence of pseudoaneurysm or AV malformation S/P Rt Groin cath. Right Sided Findings The right external iliac artery demonstrated a triphasic Doppler flow pattern. The right common femoral artery demonstrated a triphasic Doppler flow pattern. The right superficial femoral artery demonstrated a triphasic Doppler flow pattern. The right profunda femoral artery demonstrated a triphasic Doppler flow pattern. VL/US Art Duplex Unilat Lower Ext Interpretation Summary Right femoral vessels patent with no evidence of stenosis No fistula or pseudoaneurysm visualized Ordering Physician: Dixie Arita Referring Physician: Sadie Hummel Performed By: Mario Ayoub RVT
== END | disposition home or self-care (01) ==
LOC: CVS 13:16
PROVIDERS: PCP Nurse Practitioner Family; Visit Provider Specialist
DX: M79.89 Other specified soft tissue disorders (principal); R10.31 Right lower quadrant pain; S75.001A Unspecified injury of femoral artery, right leg, initial encounter
CPT/HCPCS: 93926

== ENCOUNTER → 2022-05-08 | Outpatient (CLI) | payer OTHER, SELFPAY ==
[2022-05-08 08:48] LABS: Hemoglobin A1c 5.3 % (3.8-5.6)
[2022-05-08 08:54] LABS: AST(SGOT) 40 U/L (15-37); Alanine Aminotransfer ALT/SGPT 50 U/L (16-61); Albumin, Serum 3.7 g/dL (3.2-5.0); Alkaline Phosphatase 83 U/L (45-117); Anion Gap 7 (5-15); BUN 20 mg/dL (7-18); BUN/Creat Ratio 17.7 RATIO (10-20); Calcium,Total 9.1 mg/dL (8.5-10.1); Chloride 104 mmol/L (98-107); Cholesterol 180 mg/dL (200); Creatinine, Serum 1.13 mg/dL (0.70-1.30); EST Glomerular Filtration Rate 72 mL/min (>60); Est Glom Filt Rate - Afr Amer 87 mL/min (>60); Globulin 3.8 g/dL (2.2-4.2); Glucose 112 mg/dL (74-106); High Density Lipoprotein 38 mg/dL; Potassium 4.2 mmol/L (3.5-5.1); Protein, Total 7.5 g/dL (6.4-8.2); Sodium Level 139 mmol/L (136-145); Triglycerides 244 mg/dL; Very Low Density Lipoprotein 49 mg/dL (5-40)
== END | disposition home or self-care (01) ==
LOC: LAB 07:00
PROVIDERS: PCP Nurse Practitioner Family; Referring Provider Nurse Practitioner Family; Visit Provider Nurse Practitioner Family
DX: R73.01 Impaired fasting glucose (principal); E78.5 Hyperlipidemia, unspecified
CPT/HCPCS: 36415; 80053; 80061; 83036

== ENCOUNTER → 2022-06-03 | Outpatient (CLI) | payer OTHER, SELFPAY ==
--- NOTE | 2022-06-03 06:35 | MRI_ITS ---
STUDY: MR Brain WO/W Contrast 06/03/2022 9:00 PM REASON FOR EXAM: Male, 51 years old. NUMBESS ARM,FACE,TONGUE Technologist Notes right sided numbness, headache, episodes of vision loss COMPARISON: None TECHNIQUE: Standardized multiplanar fat and water weighted pulse sequences were obtained. MR Brain WO/W Contrast FINDINGS: There is mild cerebral atrophy with widening of the extra-axial spaces and ventricular dilatation. There are a limited number of small white matter hyperintensities, distributed throughout the deep white matter tracts of the cerebral hemispheres, consistent with mild chronic white matter ischemic changes. There is mild prominence of the vermian folia, consistent with atrophy of the vermis. The cerebellar hemispheres are normal. Normal bilateral basal ganglia. Normal thalami. There is no extra-axial fluid accumulation. Normal flow voids within the major intracranial circulation suggesting patency by spin echo criteria. Normal sella turcica, pituitary gland, infundibular stalk, optic chiasm and hypothalamus. Normal tectal plate and pineal gland. Normal midbrain, sangeetha and medulla. Normal basal cisterns. Normal bilateral temporal bones. Normal bilateral internal auditory canals. No demonstrated orbital abnormality, within the constraints of a routine brain study. Normal visualized paranasal sinuses. Normal calvarium and skull base. Normal visualized soft tissue structures. Normal visualized upper cervical spine. Aspect score 10 MRI/Brain W/WO Contrast IMPRESSION: (NOT LISTED IN ORDER OF SIGNIFICANCE) There are no acute intracranial findings. Electronically Signed: Russ Georges MD at 21:02 EDT ,
== END | disposition home or self-care (01) ==
LOC: MRI 06:27
PROVIDERS: PCP Nurse Practitioner Family; Referring Provider Nurse Practitioner Family; Visit Provider Nurse Practitioner Family
DX: R20.0 Anesthesia of skin (principal)
CPT/HCPCS: 70553; A9575

== ENCOUNTER → 2022-09-17 | Outpatient (CLI) | payer OTHER, SELFPAY ==
[2022-09-17 08:23] LABS: Hemoglobin A1c 5.7 % (3.8-5.6)
[2022-09-17 08:28] LABS: ALB/GLOB Ratio 0.8 RATIO (0.9-2.4); AST(SGOT) 49 U/L (15-37); Alanine Aminotransfer ALT/SGPT 40 U/L (16-61); Albumin, Serum 3.2 g/dL (3.2-5.0); Alkaline Phosphatase 105 U/L (45-117); Anion Gap 3 (5-15); BUN 14 mg/dL (7-18); BUN/Creat Ratio 12.3 RATIO (10-20); Calcium,Total 8.5 mg/dL (8.5-10.1); Chloride 104 mmol/L (98-107); Cholesterol 138 mg/dL (200); Creatinine, Serum 1.14 mg/dL (0.70-1.30); EST Glomerular Filtration Rate 71 mL/min (>60); Est Glom Filt Rate - Afr Amer 86 mL/min (>60); Glucose 104 mg/dL (74-106); High Density Lipoprotein 37 mg/dL; Potassium 4.5 mmol/L (3.5-5.1); Protein, Total 7.2 g/dL (6.4-8.2); Sodium Level 136 mmol/L (136-145); Triglycerides 221 mg/dL; Very Low Density Lipoprotein 44 mg/dL (5-40)
[2022-09-17 08:31] LABS: Microalbumin,Random Urine < 5.0 mg/L (NO RANGE EST.)
== END | disposition home or self-care (01) ==
LOC: LAB 07:09
PROVIDERS: PCP Nurse Practitioner Family; Referring Provider Nurse Practitioner Family; Visit Provider Nurse Practitioner Family
DX: R73.03 Prediabetes (principal); E78.5 Hyperlipidemia, unspecified; Z12.5 Encounter for screening for malignant neoplasm of prostate; I10 Essential (primary) hypertension
CPT/HCPCS: 36415; 80053; 80061; 82043; 83036

== ENCOUNTER 2023-04-29 07:15 | Outpatient (CLI) | payer OTHER, SELFPAY ==
--- OUTSIDE RECORDS SUMMARY | 2023-04-29 07:21 | XMS RPT_ITS | CCD ---
Author Name Unknown Address [address] [place] [address] Organization [facility] Care Team Providers Care [employer] Lead Name Role Phone MATT GORDON Unavailable Unavailable MATT GORDON Unavailable Unavailable Problems Active Problems Problem Classification Problem Date Documented Da te Episodic/Chronic Disorders of lipid metabolism (2 sources) Mixed hyperlipidemia; Translations: [Mixed hyperlipidemia] Onset: 01-15-2017 Chronic Past or Other Problems Problem Classification Problem Date Documented Da te Episodic/Chronic Other nutritional; endocrine; and metabolic disorders (2 sources) Abnormal weight gain; Translations: [Abnormal weight gain] Onset: 01-15-2017 Episodic Results Test Name Value Interpretation Reference Range Facil ity Encounters Encounter Date Encounter Type Care Provider Facility Start: 01-15-2017 End: 01-20-2017 Ambulatory MATT GORDON Facility:[facility] Payers Date Payer Category Payer Unknown [id number] Summary Purpose Family History No Family History Records Found Advance Directives No Advanced Directives Records Found Additional Source Comments (unrecognized sect ion and content) No Status Records Found INFORMATION SOURCE (unrecogn ized section and content) FOR RECORDS PERTAINING TO PATIENTS WHO ARE OR HAVE BEEN ENROLLED IN A CHEMICAL DEPENDENCY/SUBSTANCEABUSE PROGRAM, SOME INFORMATION MAY BE OMITTED. This clinical summary was aggregated from multiple sources. Caution should be exercised in using it in the provision of clinical care. This summary normalizes information from multiple sources, and as a consequence, information in this document may materially change the coding, format and clinical context of patient data. In addition, data may be omitted in some cases. CLINICAL DECISIONS SHOULD BE BASED ON THE PRIMARY CLINICAL RECORDS. [facility]. provides no warranty or guarantee of the accuracy or completeness of information in this document.
[2023-04-29 08:31] LABS: Hemoglobin A1c 5.9 % (3.8-5.6)
[2023-04-29 08:46] LABS: AST(SGOT) 20 U/L (15-37); Alanine Aminotransfer ALT/SGPT 36 U/L (16-61); Albumin, Serum 3.4 g/dL (3.2-5.0); Alkaline Phosphatase 108 U/L (45-117); Anion Gap 5 (5-15); BUN 17 mg/dL (7-18); BUN/Creat Ratio 15.5 RATIO (10-20); Calcium,Total 8.6 mg/dL (8.5-10.1); Chloride 108 mmol/L (98-107); Cholesterol 134 mg/dL (200); EST Glomerular Filtration Rate 74 mL/min (>60); Est Glom Filt Rate - Afr Amer 90 mL/min (>60); Globulin 3.5 g/dL (2.2-4.2); Glucose 107 mg/dL (74-106); High Density Lipoprotein 39 mg/dL; PSA,Total - Annual Screen 0.77 ng/mL (0.00-4.00); Potassium 3.9 mmol/L (3.5-5.1); Protein, Total 6.9 g/dL (6.4-8.2); Sodium Level 138 mmol/L (136-145); Triglycerides 115 mg/dL; Very Low Density Lipoprotein 23 mg/dL (5-40)
[2023-04-29 10:11] LABS: Microalbumin,Random Urine 5.3 mg/L (NO RANGE EST.); Microalbumin:Creatinine Ratio 6.4 mg/g CRE (<30 mg/g CRE)
== END 2023-04-29 23:59 | disposition home or self-care (01) ==
LOC: LAB 07:18
PROVIDERS: PCP Nurse Practitioner Family; Referring Provider Internal Medicine Cardiovascular Disease; Visit Provider Nurse Practitioner Family
DX: E78.5 Hyperlipidemia, unspecified (principal); R73.03 Prediabetes; Z12.5 Encounter for screening for malignant neoplasm of prostate; I10 Essential (primary) hypertension; I25.10 Atherosclerotic heart disease of native coronary artery without angina pectoris; R06.00 Dyspnea, unspecified
CPT/HCPCS: 36415; 80053; 80061; 82043; 82570; 83036; 84153; G0103

== ENCOUNTER → 2023-05-09 | Outpatient (CLI) | payer OTHER, SELFPAY ==
--- OUTSIDE RECORDS SUMMARY | 2023-05-09 07:33 | XMS RPT_ITS | CCD ---
Author Name Unknown Address [address] [place] [address] Organization [facility] Care Team Providers Care Radiologic Electronic Specialist Name Role Phone MATT GORDON Unavailable Unavailable [...] Start: 01-15-2017 End: 01-20-2017 Ambulatory MATT GORDON Facility:[facility] Payers Date Payer Category Payer Unknown [id number] Summary Purpose Family History No Family History [...] BE BASED ON THE PRIMARY CLINICAL RECORDS. [employer] [facility]. provides no warranty or guarantee of the accuracy or completeness of information in this document.
[2023-05-09 10:00] LABS: Rheumatoid Factor < 10.0 IU/mL (<15)
[2023-05-11 12:08] LABS: ANTINUCLEAR ANTIBODIES DIRECT Negative (Negative)
== END | disposition home or self-care (01) ==
LOC: LAB 07:30
PROVIDERS: PCP Nurse Practitioner Family; Referring Provider Nurse Practitioner Family; Visit Provider Nurse Practitioner Family
DX: M25.50 Pain in unspecified joint (principal)
CPT/HCPCS: 36415; 86038; 86431

== ENCOUNTER 2023-06-23 17:16 | Emergency (ER) | payer OTHER, SELFPAY ==
[2023-06-23 17:17] VITALS: BP 197/104; PULSE 74; RESP 18; TEMP 35.7; O2SAT 97
[2023-06-23 17:55] LABS: Bacteria 0 SEEN /hpf (None Seen); Mucous, Urine 0 SEEN /hpf (<or=2+); Red Blood Cells-Urine 0 SEEN /hpf (0-5); Squamous Epithelial Cells - UA 0 SEEN /hpf (0-5); White Blood Cells 0 SEEN /hpf (0-5)
[2023-06-23 17:56] LABS: Color, Urine Yellow (Yellow); Glucose, Dipstick Normal (Normal); Ketone-Dipstick Negative (Negative); Leukocyte Esterase-Dipstick Negative /ul (Negative); Nitrite-Dipstick Negative (Negative); Occult Blood-Urine Negative /ul (Negative); Protein-Dipstick Negative (Negative); Specific Gravity, Urine 1.005 (1.002-1.030); Urine Bilirubin Dipstick Negative (Negative); Urine Clarity Clear (Clear); Urine Urobilinogen Normal (Normal)
--- NOTE | 2023-06-23 17:57 | CT_ITS ---
STUDY: CT ABDOMEN AND PELVIS WITHOUT CONTRAST REASON FOR EXAM: Male, 52 years old. Left flank pain RADIATION DOSAGE (If Supplied By Facility): CTDIvol = ( 24.18 ) mGy, DLP = ( 1268.52 ) mGycm TECHNIQUE: Transaxial images were obtained from the dome of the diaphragm to the symphysis pubis without oral contrast, and without intravenous contrast. Sagittal and coronal images were reconstructed. Individualized dose optimization techniques were used for this CT. COMPARISON: None. FINDINGS: There is a 0.5 cm nodule of the right lung base. The visualized portions of the heart are within normal limits. There is hepatomegaly with diffuse hepatic enlargement. Normal gallbladder and extrahepatic biliary system. Normal spleen. Normal pancreas. Normal bilateral adrenal glands. Normal right kidney. Normal left kidney. Normal visualized stomach. Normal small intestine. There are multiple colonic diverticula consistent with diverticulosis. The appendix is visualized and appears normal. Normal abdominal aorta. Normal inferior vena cava. Normal retroperitoneum. Normal urinary bladder. There is no free fluid in the abdomen or pelvis. There left larger than the right inguinal hernia containing fat. There is periumbilical hernia containing fat. There is degenerative change of the spine. CT/Abdomen/Pelvis without Cont IMPRESSION: Colonic diverticulosis. No obstruction. Hepatomegaly. No biliary dilatation. Small right lung base nodule. Recommend dedicated exam of the chest and follow-up according to Fleischner Society guidelines. Electronically Signed: Angel Luis Johnson MD at 20:10 EDT ,
--- NOTE | 2023-06-23 18:02 | ED.VIS.GI ---
HPI HPI - GI History of Present Illness Chief Complaint: Flank Pain Narrative Narrative: 51-year-old male presenting with left flank pain. He states has been present on and off for about a month now. Initially started after he stacked some firewood and thought it was musculoskeletal. He describes aching burning pain in the left flank and the only this last for a couple of minutes and was worse with exertion and twisting his trunk. It is now been steady for about a week and a half. He had initial labs done when the symptoms started and they were normal. No history of kidney stones. He denies any hematuria or dysuria. He states he does void frequently because he does a lot of water he drinks about a gallon a day. Denies fevers, chills. Denies nausea or vomiting. Denies constipation or diarrhea. [facility] Medical History Abnormal stress test Chest pain Chest tightness Chronic serous otitis media of both ears Coronary artery disease COVID-19 Deep inguinal pain, right Dyspnea Exacerbation of gout Family history of colon cancer in father GERD (gastroesophageal reflux disease) Hordeolum externum left lower eyelid Hyperlipidemia Hypertension Injury of right femoral artery Leg swelling Low back strain Morbid obesity CORBIN on CPAP CORBIN treated with BiPAP Prediabetes Radiculopathy, lumbar region Home Medications naproxen sodium 220 mg capsule (Aleve) 220 mg PO BID PRN Pain 05/14/20 [History Last Taken Unknown] multivitamin 1 tab PO DAILY 01/13/22 [History Last Taken Unknown] aspirin 81 mg tablet,delayed release (Adult Low Dose Aspirin) 81 mg PO DAILY 02/11/22 [History Last Taken 02/19/22] atorvastatin 40 mg tablet 40 mg PO QHS #90 tabs 02/14/22 [Rx Last Taken Unknown] amlodipine 5 mg tablet 5 mg PO DAILY #90 tabs 03/10/23 [Rx Last Taken Unknown] escitalopram oxalate 5 mg tablet 5 mg PO DAILY 04/22/23 [History Last Taken Unknown] losartan 100 mg tablet 100 mg PO DAILY #90 tabs 04/22/23 [Rx Last Taken Unknown] metformin 500 mg tablet 500 mg PO DAILY 04/22/23 [History Last Taken Unknown] nitroglycerin 0.4 mg sublingual tablet 0.4 mg sublingual Q5-15M PRN 04/22/23 [History Last Taken Unknown] naproxen 500 mg tablet (Naprosyn) 500 mg PO BID PRN pain #30 tabs 06/23/23 [Rx Last Taken Unknown] tizanidine 4 mg capsule 4 mg PO Q8H PRN muscle spasticity #20 caps 06/23/23 [Rx Last Taken Unknown] Allergy/AdvReac Type Severity Reaction Status Date / Time No Known Allergies Allergy Verified 06/23/23 17:17 Family History Father Colon cancer Mother Hypertension Thyroid disorder CVA (cerebral vascular accident) Myocardial infarction Surgical History History of placement of ear tubes (~01/18/19) Hx of left inguinal hernia repair Hx of tonsillectomy Social History Smoking Status: Never smoker second hand exposure: No alcohol intake: current details: 1x a month substance use type: does not use caffeine: Yes Type: coffee and tea Number of servings: 2 what type of physical activity do you participate in: none and other ROS ROS ED Constitutional Constitutional ED: Denies chills, fever(s) or sweats Eyes Eyes: Denies blurry vision or change in vision ENT ENT ED: Denies ear pain or sore throat Cardiovascular Cardiovascular: Denies chest pain, palpitations or racing heartbeat Respiratory/Chest Respiratory/Chest: Denies cough, dyspnea or sputum Gastrointestinal Gastrointestinal: Reports abdominal pain; Denies constipation, diarrhea, nausea or vomiting Genitourinary Genitourinary ED: Denies dysuria, hematuria or urinary frequency Musculoskeletal Musculoskeletal: Denies arthralgias, myalgias or neck pain Integumentary Denies abscess, Abrasions or rash Neurologic Neurologic: Denies headache(s), paresthesias or weakness Psychiatric Psychiatric: Denies anxiety, depression, suicidal ideation or suicidal thoughts Endocrine Endocrinology: Denies polydipsia or polyuria EXAM Physical Exam Const Vital Signs: 06/23/23 17:17 06/23/23 19:27 Temperature 96.3 F L 97.6 F L Temperature Source Temporal Temporal Pulse Rate 74 63 Respiratory Rate 18 16 Blood Pressure 197/104 H 153/96 H Blood Pressure Mean 135 115 Pulse Ox 97 97 Oxygen Delivery Method Room Air Room Air Positive well nourished General Appearance ED: Negative for pallor HEENT normocephalic Eyes PERRL and EOMs intact bilaterally Resp normal respiratory effort Cardio regular rate and regular rhythm GI GI Narrative: Tenderness palpation left flank. No CVA tenderness. No rashes. No midline thoracic or lumbar spinal tenderness. Palpation: tender Neuro CN's II-XII intact bilaterally and moves all extremities Sensorium / Orientation: alert Motor Exam: strength 5/5 throughout Psych mental status grossly normal Skin no wounds General Skin Exam: Negative for jaundice or pallor MDM MDM MDM Narrative Medical decision making narrative: Patient presenting with left flank pain. He thought it was musculoskeletal but it has been pretty persistent. He has no other symptoms associated with it. Differential includes lumbar strain, kidney stone, UTI, pyelonephritis. Patient medicated morphine, Zofran, Toradol. Urinalysis will be obtained to rule out UTI versus occult blood. CT of the abdomen pelvis without contrast will be obtained to rule out kidney stone. Urinalysis negative for infection. Patient said he recently had lab work and this was reviewed. CT of the abdomen pelvis without contrast was obtained which does not show any acute abdominal pathology. There are some hepatomegaly and there is a lung nodule which we discussed. He will need follow-up for this. He is not symptomatic from it. Patient will put on muscle relaxers and NSAIDs for home. These were filled via meds to beds. He is given a work note. Impression: 1. Left flank pain 2. Lung nodule Lab Data Labs: Laboratory Results - last 24 hr 06/23/23 17:46 Urine Color Yellow Urine Clarity Clear Urine pH 7.0 Ur Specific [place] 1.005 Urine Protein Negative Urine Glucose (UA) Normal Urine Ketones Negative Urine Occult Blood Negative Urine Nitrite Negative Urine Bilirubin Negative Urine Urobilinogen Normal Ur Leukocyte Esterase Negative Urine RBC 0 SEEN Urine WBC 0 SEEN Ur Squamous Epith Cells 0 SEEN Urine Bacteria 0 SEEN Urine Mucus 0 SEEN Radiography Diagnostic Testing: Clinical Impression(s) from Imaging Studies Abdomen/Pelvis CT 06/23/23 17:57 IMPRESSION: Colonic diverticulosis. No obstruction. Hepatomegaly. No biliary dilatation. Small right lung base nodule. Recommend dedicated exam of the chest and follow-up according to Fleischner Society guidelines. Electronically Signed: Angel Luis Johnson MD at 20:10 EDT , Discharge Plan Triage Chief Complaint: Flank Pain ED Provider: Jere Zhu Dx/Rx/DC Orders Instructions: ED Flank Pain, Uncertain Cause, ED Pulmonary Nodule, Solitary Prescriptions: New tizanidine 4 mg capsule 4 mg PO Q8H PRN (Reason: muscle spasticity) Qty: 20 0RF naproxen [Naprosyn] 500 mg tablet 500 mg PO BID PRN (Reason: pain) Qty: 30 0RF No Action naproxen sodium [Aleve] 220 mg capsule 220 mg PO BID PRN (Reason: Pain) multivitamin Tablet 1 tab PO DAILY metformin 500 mg tablet 500 mg PO DAILY Patient Comments: TAKE 1 TABLET BY MOUTH 24TIMES A DAY nitroglycerin 0.4 mg tablet, sublingual 0.4 mg sublingual Q5-15M PRN Patient Comments: TAKE 1 TABLET [id number] EVERY 5 MINUTES NEEDED FOR CHEST PAIN escitalopram oxalate 5 mg tablet 5 mg PO DAILY Patient Comments: TAKE 1 TABLET BY MOUTHCONCE DAILY losartan 100 mg tablet 100 mg PO DAILY Qty: 90 3RF aspirin [Adult Low Dose Aspirin] 81 mg tablet,delayed release (DR/EC) 81 mg PO DAILY atorvastatin 40 mg tablet 40 mg PO QHS Qty: 90 3RF amlodipine 5 mg tablet 5 mg PO DAILY Qty: 90 3RF Primary Care Provider: Marilyn Hummel NP Referrals: Marilyn Hummel NP, [facility] [employer] [facility] [Primary Care Provider] - Disposition Disposition: Home, Self Care
[2023-06-23] MEDS: Morphine 4 MG/ML Syringe IV (18:21)
[2023-06-23] MEDS: Ondansetron 4 MG/2 ML Vial IV (18:21)
[2023-06-23] MEDS: Ketorolac 15 MG/ML Vial IV (18:21)
[2023-06-23 19:27] VITALS: BP 153/96; PULSE 63; RESP 16; TEMP 36.4; O2SAT 97; BMI 53.0
[2023-06-23 21:12] VITALS: BP 170/95; PULSE 62; RESP 16; TEMP 36.6; O2SAT 97
== END 2023-06-23 21:13 | disposition home or self-care (01) ==
PROVIDERS: Emergency Provider Student in an Organized Health Care Education/Training Program; PCP Nurse Practitioner Family; Visit Provider Student in an Organized Health Care Education/Training Program
DX: R10.9 Unspecified abdominal pain (principal); I25.10 Atherosclerotic heart disease of native coronary artery without angina pectoris; E78.5 Hyperlipidemia, unspecified; I10 Essential (primary) hypertension; G47.33 Obstructive sleep apnea (adult) (pediatric); Z99.89 Dependence on other enabling machines and devices; Z79.82 Long term (current) use of aspirin; Z79.899 Other long term (current) drug therapy; R91.1 Solitary pulmonary nodule
CPT/HCPCS: 74176; 81001; 96374; 96375; 99282; A4216; J2405

== ENCOUNTER → 2023-08-04 | Outpatient (CLI) | payer OTHER, SELFPAY | END | disposition home or self-care (01) | LOC: LAB 06:10 | PROVIDERS: PCP Nurse Practitioner Family; Referring Provider Nurse Practitioner Family; Visit Provider Nurse Practitioner Family | DX: N52.9 Male erectile dysfunction, unspecified (principal) | CPT/HCPCS: 36415; 84403 ==

== ENCOUNTER → 2023-08-05 | Outpatient (CLI) | payer OTHER, SELFPAY ==
--- NOTE | 2023-08-05 15:23 | CT_ITS ---
INDICATION: LUNG NODLUE ON AB CT SCAN EXAMINATION: - CT Chest W/ Contrast Injection A radiation dose optimization technique was used for this scan. RADIATION DOSAGE (If Supplied By Facility): CTDIvol/DLP = ( 18.95 ) / ( 833.58 ) mGy/mGycm COMPARISON: Chest radiograph 02/15/2022. FINDINGS: Contrast enhanced serial CT axial images through the chest with coronal and sagittal reformatted series. IV Contrast dosage and agent: 100 cc Isovue-300 IV. MEDIASTINUM: No acute thoracic aortic abnormality. No obvious large proximal pulmonary artery filling defects. Mediastinum is otherwise unremarkable. LUNG PARENCHYMA: No acute pulmonary parenchymal abnormality. Again noted dominant 6 mm right lower lobe pulmonary nodule on image 79 of series 2. 5 mm right middle lobe pulmonary nodule on image 58. PLEURA: No pleural effusion. No pneumothorax. BONES: Osseous structures are unremarkable for age. UPPER ABDOMEN: Fatty liver. CT/Chest WITH Contrast IMPRESSION: Again noted dominant 6 mm right lower lobe pulmonary nodule. Recommend comparison with previous imaging to document long-term stability versus follow-up evaluation as per Fleischner guidelines as neoplastic process is not excluded. No acute abnormality of the chest. Fatty liver. Electronically Signed: Hermes Starkey MD at 6:30 EDT ,
== END | disposition home or self-care (01) ==
LOC: CT 15:17
PROVIDERS: PCP Nurse Practitioner Family; Referring Provider Nurse Practitioner Family; Visit Provider Nurse Practitioner Family
DX: R91.1 Solitary pulmonary nodule (principal)
CPT/HCPCS: 71260

== ENCOUNTER → 2023-09-16 | Outpatient (CLI) | payer OTHER, SELFPAY ==
--- NOTE | 2023-09-16 06:46 | US_ITS ---
STUDY: ABDOMINAL ULTRASOUND - RIGHT UPPER QUADRANT; ELASTOGRAPHY REASON FOR VISIT: Male, 52 years old. Fatty infiltration of the liver. TECHNIQUE: Ultrasound evaluation of the right upper quadrant was performed with real-time and static farrell-scale imaging. Point quantification shear wave elastography was performed ([id number]). TECHNICAL QUALITY: Adequate. COMPARISON: None. FINDINGS: Liver: The liver is enlarged and measures 19.4 cm. There is increased echogenicity consistent with fatty infiltration. Focal fatty sparing is seen in the pericholecystic region. The bile ducts are within normal limits. There is hepatic color flow. The direction of portal flow is hepatopetal. There is no demonstrated mass lesion. Median liver stiffness measured 11.4 kPa. Gallbladder: Normal distended gallbladder. The gallbladder wall measures 1.7 mm. There is a negative sonographic Warner''s sign. There is no pericholecystic fluid. There are no gallstones. Common Bile Duct (C.B.D.): The common bile duct measures 5 mm. Pancreas: There is limited visualization of the pancreas due to overlying bowel gas. Right Kidney: Normal size of the right kidney. The right kidney measures 12.4 cm x 6.6 cm x 5.4 cm. Normal renal cortex. The right cortex measures 1.6 cm. There is no demonstrated renal mass or cyst. There is no right hydronephrosis. US/ABD Limited w/ Elastography IMPRESSION: 1. Liver stiffness measures 11.4 kPa compatible with F2-F3 (Mild to moderate liver fibrosis) Metavir score. 2. Hepatomegaly. Fatty infiltration of the liver. Electronically Signed: Roland Navarro MD at 10:40 EDT ,
[2023-09-16 08:57] LABS: AST(SGOT) 27 U/L (15-37); Alanine Aminotransfer ALT/SGPT 42 U/L (16-61); Albumin, Serum 3.6 g/dL (3.2-5.0); Alkaline Phosphatase 104 U/L (45-117); Anion Gap 7 (5-15); BUN 22 mg/dL (7-18); BUN/Creat Ratio 19.5 RATIO (10-20); Bilirubin, Direct 0.12 mg/dL (0.00-0.30); Calcium,Total 8.9 mg/dL (8.5-10.1); Chloride 109 mmol/L (98-107); Cholesterol 131 mg/dL (200); Creatinine, Serum 1.13 mg/dL (0.70-1.30); EST Glomerular Filtration Rate 72 mL/min (>60); Est Glom Filt Rate - Afr Amer 87 mL/min (>60); Globulin 3.6 g/dL (2.2-4.2); Glucose 114 mg/dL (74-106); High Density Lipoprotein 36 mg/dL; Protein, Total 7.2 g/dL (6.4-8.2); Sodium Level 139 mmol/L (136-145); Triglycerides 134 mg/dL; Very Low Density Lipoprotein 27 mg/dL (5-40)
[2023-09-16 14:46] LABS: Hemoglobin A1c 5.5 % (3.8-5.6)
== END | disposition home or self-care (01) ==
LOC: US 06:45
PROVIDERS: Physician Assistant Medical; PCP Nurse Practitioner Family; Referring Provider Internal Medicine Gastroenterology; Visit Provider Internal Medicine Gastroenterology
DX: K76.0 Fatty (change of) liver, not elsewhere classified (principal); R73.03 Prediabetes
CPT/HCPCS: 36415; 76705; 76981; 80053; 80061; 82248; 83036

== ENCOUNTER → 2024-07-14 | Outpatient (CLI) | payer OTHER, SELFPAY ==
[2024-07-14 11:16] LABS: Hematocrit 40.8 % (40-54); Mean Corp Hgb Conc 34.3 g/dL (32-36); Mean Corpuscular Hgb 31.7 pg (27.0-32.0); Mean Corpuscular Volume 92.5 fL (80-94); Mean Platelet Vol. 10.8 fl (6.2-12.0); Platelet Count 268 K/mm3 (150-450); RBC Distribution Width CV 13.1 % (11.6-14.6); RBC Distribution Width SD 44.5 fl (35.1-43.9); Red Blood Count 4.41 M/mm3 (4.6-6.2); White Blood Count 10.2 K/mm3 (4.4-11.0)
[2024-07-14 11:42] LABS: ALB/GLOB Ratio 1.4 RATIO (0.9-2.4); AST(SGOT) 26 U/L (<=37); Alanine Aminotransfer ALT/SGPT 29 U/L (<=46); Albumin, Serum 3.9 g/dL (3.5-5.0); Alkaline Phosphatase 102 U/L (40-129); Anion Gap 12 (5-15); BUN 20 mg/dL (4-19); BUN/Creat Ratio 17.4 RATIO (10-20); Bilirubin, Direct 0.19 mg/dL (0.00-0.30); Calcium,Total 8.9 mg/dL (7.6-11.0); Chloride 103 mmol/L (98-108); Cholesterol 149 mg/dL (<=200); Creatinine, Serum 1.14 mg/dL (0.70-1.20); EST Glomerular Filtration Rate 76 (>60); Globulin 2.8 g/dL (2.2-4.2); Glucose 101 mg/dL (70-99); High Density Lipoprotein 30 mg/dL; Low Density Lipoprotein Calc. 88 mg/dL; Potassium 4.5 mmol/L (3.3-5.1); Protein, Total 6.7 g/dL (5.9-8.4); Sodium Level 138 mmol/L (133-145); T4 Total, Thyroxin 6.6 ug/dL (4.5-12.1); Total Bilirubin 0.49 mg/dL (0.00-1.30); Triglycerides 153 mg/dL; Very Low Density Lipoprotein 31 mg/dL (5-40); cholesterol:hdl ratio screen 4.92
[2024-07-15 04:07] LABS: GGTP 27 IU/L (0-65)
== END | disposition home or self-care (01) ==
LOC: MTLAB 07:15
PROVIDERS: Physician Assistant Medical; PCP Nurse Practitioner Family; Referring Provider Internal Medicine Gastroenterology; Visit Provider Internal Medicine Gastroenterology
DX: K76.0 Fatty (change of) liver, not elsewhere classified (principal); E78.00 Pure hypercholesterolemia, unspecified
CPT/HCPCS: 36415; 80053; 80061; 82248; 82977; 84436; 84443; 85027

== ENCOUNTER → 2024-10-21 | Outpatient (CLI) | payer OTHER, SELFPAY ==
--- OUTSIDE RECORDS SUMMARY | 2024-10-21 06:43 | XMS RPT_ITS | CCD ---
Author Organization [facility] Care Team Providers Care Saw Handle Assembler Name Role Phone MARILYN GORDON Unavailable Unavailable MARILYN GORDON Unavailable Unavailable Shaheed MANUFACTURING QUALITY ENGINEER, MANUFACTURING QUALITY ENGINEER-C Marilyn Primary Care Provider Shaheed MANUFACTURING QUALITY ENGINEER, MANUFACTURING QUALITY ENGINEER-C Marilyn Referring Provider [phone] DI Rodriguez Attending Provider Roof MANUFACTURING QUALITY ENGINEER, MANUFACTURING QUALITY ENGINEER-C Evelio Elder Attending Provider Dr. Neftali Asencio Attending Provider Roof MANUFACTURING QUALITY ENGINEER, MANUFACTURING QUALITY ENGINEER-C Evelio Elder Referring Provider Roof MANUFACTURING QUALITY ENGINEER, MANUFACTURING QUALITY ENGINEER-C Evelio Elder Other Provider [phone] Dr. Dixie Arita Attending Provider Dr. Dixie Arita Other Provider Shaheed MANUFACTURING QUALITY ENGINEER, MANUFACTURING QUALITY ENGINEER-C Marilyn Primary Care Provider [phone] Dr. Dixie Arita Attending Provider [phone] Roof MANUFACTURING QUALITY ENGINEER, MANUFACTURING QUALITY ENGINEER-C Evelio Elder Referring Provider Roof MANUFACTURING QUALITY ENGINEER, MANUFACTURING QUALITY ENGINEER-C Evelio Elder Attending Provider Dr. Dixie Arita Referring Provider Pricilason MANUFACTURING QUALITY ENGINEER, MANUFACTURING QUALITY ENGINEER-Emely Sanders Referring Provider [phone] Shaheed MANUFACTURING QUALITY ENGINEER, MANUFACTURING QUALITY ENGINEER-C Marilyn Primary Care Provider [phone] Dr. Dixie Arita Other Provider Roof MANUFACTURING QUALITY ENGINEER, MANUFACTURING QUALITY ENGINEER-C Evelio Elder Attending Provider Dr. Dixie Arita Attending Provider Dr. Dixie Arita Referring Provider [place] MANUFACTURING QUALITY ENGINEER, MANUFACTURING QUALITY ENGINEER-C Marilyn Referring Provider [phone] Dr. Neftali Asencio Attending Provider DI Mitchell Attending Provider [place] MANUFACTURING QUALITY ENGINEER, MANUFACTURING QUALITY ENGINEER-C [place] Primary Care Provider [phone] [place] MANUFACTURING QUALITY ENGINEER, MANUFACTURING QUALITY ENGINEER-C Marilyn Referring Provider [phone] Dr. [place] Attending Provider [phone] [place]on MANUFACTURING QUALITY ENGINEER, MANUFACTURING QUALITY ENGINEER-C [place] Primary Care Provider [place]on MANUFACTURING QUALITY ENGINEER, MANUFACTURING QUALITY ENGINEER-C [place] Referring Provider [phone] DI Mitchell Attending Provider Dr. [place] Attending Provider [phone] [place] MANUFACTURING QUALITY ENGINEER, MANUFACTURING QUALITY ENGINEER-C [place] Primary Care Provider [phone] [place]on MANUFACTURING QUALITY ENGINEER, MANUFACTURING QUALITY ENGINEER-C [place] Referring Provider [phone] DI Mitchell Attending Provider Dr. [place] Attending Provider [phone] [place] MANUFACTURING QUALITY ENGINEER-C, [place] Primary Care Provider [phone] Dr. Ruben Marie MD Attending Provider Dr. Ruben Marie MD Referring Provider Lyla Camacho Other Provider [phone] [place] MANUFACTURING QUALITY ENGINEER-C, Marilyn Referring Provider [phone] Sylvain Rodriguez Attending Provider [place], Marilyn Referring Unavailable Sylvain Rodriguez Attending Unavailable [place], Marilyn Primary Care Unavailable [place], Marilyn Referring Unavailable Evelio Foss NP Attending Unavailable [place], Marilyn Primary Care Unavailable [place], Marilyn Primary Care Unavailable Radha Mello NP Attending Unavailable [place], Marilyn Referring Unavailable Ruben Marie Attending Unavailable Ruben Marie Referring Unavailable Lyla Camacho Consulting Unavail able [place], Marilyn Primary Care Unavailable [place], Marilyn Primary Care Unavailable Sylvain Rodriguez Attending Unavailable Marilyn Gordon Referring Unavailable Radha Chacon Attending Provider [phone] Medications Current Medications Medication Drug Class(es) Dates Sig (Normalized) Sig (Original) aspirin 81 mg delayed release oral tablet (20 sources) Platelet Aggregation Inhibitor, Nonsteroidal Anti-inflammatory Drug Start: 02-11-2022 Aspirin (Adult Low Dose Aspirin) 81 mg tablet,delayed release (DR/EC) Active 81 mg PO DAILY February 11, 2022 1:00am Start: 02-07-2019 End: 02-14-2019 Aspirin (Adult Low Dose Aspi rin) 81 mg tablet,delayed release (DR/EC) Discontinued 81 mg PO DAILY February 07, 2019 1:00am February 14, 2019 12:36pm atorvastatin 40 mg oral tablet (11 sources) HMG-CoA Reductase Inhibitor Start: 02-14-2022 take 1 tablet by mouth at bedtime Atorvastatin 40 mg tablet Active 40 mg PO AT BEDTIME 90 3 February 14, 2022 1:00am losartan potassium 100 mg oral tablet (20 sources) Angiotensin 2 Receptor Liliana Start: 04-22-2023 End: 04-22-2024 take 1 tablet by mouth once daily Losartan 100 mg tablet Active 100 mg PO DAILY 90 3 April 22, 2024 10:19am Start: 01-13-2022 End: 04-22-2023 take 1 tablet by mouth once daily Losartan 50 mg tablet Discontinued 50 mg PO DAILY 90 3 March 06, 2022 1:03pm April 22, 2023 10:09am Multivitamin preparation (20 sources) Start: 01-13-2022 take 1 tablet by mouth once daily Multivitamin Active 1 TABLET PO DAILY January 13, 2022 1:00am Start: 01-13-2022 take 1 tablet by geovanny th once daily Multivitamin Active 1 TABLET PO DAILY January 13, 2022 12:00am Start: 02-01-2019 End: 02-07-2019 take 1 tablet by mouth once daily Multivitamin Discontinued 1 TABLET PO DAILY February 01, 2019 11:28am February 07, 2019 2:39pm Start: 02-01-2019 End: 02-07-2019 take 1 tablet by mouth once daily Multivitamin Discontinued 1 TABLET PO DAILY February 01, 2019 12:00am February 07, 2019 1:39pm Start: 02-01-2019 End: 02-07-2019 take 1 tablet by mouth once daily Multivitamin Discontinued 1 TABLET PO DAILY February 01, 2019 1:00am February 07, 2019 2:39pm nitroglycerin 0.4 mg sublingual tablet (20 sources) Nitrate Vasodilator Start: 04-22-2023 Nitroglyce rin 0.4 mg tablet, sublingual Active 0.4 mg SL every 5 to 15 minutes as needed April 22, 2023 1:00am Start: 04-22-2023 Nitroglycerin Active 0.4 MG SL every 5 to 15 minutes April 22, 2023 1:00am Start: 02-01-2019 End: 05-14-2020 Nitroglycerin 0.4 mg tablet, sublingual Discontinued 0.4 mg SL every 5 to 15 minutes as needed for Cardiac/Chest Pain February 01, 2019 1:00am May 14, 2020 7:40am Start: 02-01-2019 End: 05-14-2020 Nitroglycerin Discontinued 0 .4 MG SL every 5 to 15 minutes February 01, 2019 1:00am May 14, 2020 7:40am tiZANidine 4 mg oral capsule (5 sources) Central alpha-2 Adrenergic Agonist Start: 06-23-2023 take 1 capsule by mouth every eight hours as needed Tizanidine 4 mg capsule Active 4 mg PO Q8H as needed for muscle spasticity 20 0 June 23, 2023 12:00am Completed/Discontinued Medications Medication Drug Class(es) Dates Sig (Normalized) Sig (Original) acetaminophen 325 mg / HYDROcodone bitartrate 5 mg oral tablet (18 sources) Opioid Agonist Start: 04-29-2018 End: 05-02-2018 Hydrocodone-Acetamin ophen 1 TABLET tablet Discontinued 1 {tbl} PO EVERY 6 HOURS NEEDED as needed for Pain 10 3 0 April 29, 2018 1:00am May 01, 2018 1:00am May 02, 2018 1:08am Lumbosacral radiculopathy at L3 Radiculopathy, lumbosacral region Start: 04-29-2018 End: 05-02-2018 take 1 tablet by mouth every six hours as needed Hydrocodone-Acetaminophen Discontinued 1 TABLET PO EVERY 6 HOURS NEEDED 10 3 April 29, 2018 1:00am May 02, 2018 1:08am amLODIPine 5 mg oral tablet (20 sources) Dihydropyridine Calcium Channel Liliana Start: 09-19-2022 End: 06-17-2024 take 1 tablet by mouth once daily Amlodipine 5 mg tablet Discontinued 5 mg PO DAILY 90 0 March 16, 2024 3:27pm June 17, 2024 3:38pm apixaban 5 mg oral tablet (20 sources) Factor Xa Inhibitor Start: 02-14-2019 End: 05-14-2020 take 1 tablet by mouth twice daily Apixaban 5 mg tablet Discontinued 5 mg PO TWICE A DAY 60 February 14, 2019 12:32pm May 14, 2020 7:40am benzonatate 100 mg oral capsule (1 source) Non-narcotic Antitussive Start: 07-22-2024 End: 10-20-2024 take 2 capsules by mouth three times daily as needed for cough Benzonatate 100 mg capsule Discontinued 200 mg PO THREE TIMES A DAY as needed for cough 30 July 22, 2024 12:00am October 20, 2024 7:55am cephalexin 500 mg oral capsule (18 sources) Cephalosporin Antibacterial Start: 07-19-2019 End: 05-14-2020 take 1 capsule by mouth every eight hours Cephalexin 500 MG capsule Discontinued 500 mg PO EVERY 8 HOURS 21 July 19, 2019 12:00am May 14, 2020 7:40am cyclobenzaprine hydrochloride 5 mg oral tablet (18 sources) Muscle Relaxant Start: 04-30-2018 End: 12-09-2018 take 1 tablet by mouth three times daily as needed for muscle spasms Cyclobenzaprine 5 mg tablet Discontinued 5 mg PO THREE TIMES A DAY as needed for muscle spasm 20 April 30, 2018 1:00am December 09, 2018 7:42am Radiculopathy, lumbar region 0.5 ml dulaglutide 1.5 mg/ml auto-injector (11 sources) GLP-1 Receptor Agonist Start: 02-14-2022 End: 09-19-2022 Dulaglutide (Trulicity) 0.75 mg/0.5 mL pen injector Discontinued 0.75 mg SC EVERY WEEK 2 February 14, 2022 1:00am September 19, 2022 8:52am escitalopram 5 mg oral tablet (6 sources) Serotonin Reuptake Inhibitor Start: 04-22-2023 End: 10-23-2023 take 1 tablet by mouth once daily Escitalopram Oxalate 5 mg tablet Discontinued 5 mg PO DAILY April 22, 2023 1:00am October 23, 2023 8:23am Ipratropium [place] 21 mcg (0.03 %) spray,non-aerosol (1 source) Start: 07-22-2024 End: 10-20-2024 Ipratropium [place] 21 mcg (0.03 %) spray,non-aerosol Discontinued 2 NMA INTRANASAL 2 to 3 times per day as needed for postnasal drainage 30 0 July 22, 2024 12:00am October 20, 2024 7:55am administer into each nostril lisinopril 10 mg oral tablet (20 sources) Angiotensin Converting Enzyme Inhibitor Start: 02-01-2019 End: 01-13-2022 take 1 tablet by mouth at bedtime Lisinopril 10 mg tablet Discontinued 10 mg PO AT BEDTIME 90 March 11, 2021 1:50pm January 13, 2022 4:11pm metFORMIN hydrochloride 500 mg oral tablet (6 sources) Biguanide Start: 04-22-2023 End: 10-23-2023 take 1 tablet by mouth once daily Metformin 500 mg tablet Discontinued 500 mg PO DAILY April 22, 2023 1:00am October 23, 2023 8:22am Methylprednisolone (18 sources) Corticosteroid Start: 05-14-2020 End: 10-09-2020 Methylprednisolone Discontinued 0 PO per package directions May 14, 2020 7:43am October 09, 2020 6:54am PO PER PKG DIR Start: 05-14-2020 End: 10-09-2020 Methylprednisolone 4 mg tabl ets,dose pack Discontinued 0 PO per package directions May 14, 2020 1:00am October 09, 2020 6:54am PO PER PKG DIR Start: 05-14-2020 End: 10-09-2020 Methylprednisolone Discontin ued 0 PO per package directions May 14, 2020 12:00am October 09, 2020 5:54am PO PER PKG DIR Start: 05-14-2020 End: 10-09-2020 Methylprednisolone Discontin ued 0 PO per package directions May 14, 2020 1:00am October 09, 2020 6:54am PO PER PKG DIR Multivitamin tablet (8 sources) Start: 01-13-2022 End: 10-20-2024 Multivitamin tablet Disconti nued 1 {tbl} PO DAILY January 13, 2022 1:00am October 20, 2024 7:55am Start: 01-13-2022 Multivitamin t ablet Active 1 {tbl} PO DAILY January 13, 2022 1:00am Start: 02-01-2019 End: 02-07-2019 Multivitamin tablet Disconti nued 1 {tbl} PO DAILY February 01, 2019 1:00am February 07, 2019 2:39pm naproxen 500 mg oral tablet (20 sources) Nonsteroidal Anti-inflammatory Drug Start: 06-23-2023 End: 10-20-2024 take 1 tablet by mouth twice daily as needed for pain Naproxen (Naprosyn) 500 mg tablet Discontinued 500 mg PO TWICE A DAY as needed for pain June 23, 2023 12:00am October 20, 2024 7:55am Start: 05-14-2020 take 1 capsule by mo [facility] twice daily as needed for pain Naproxen Sodium (Aleve) 220 mg capsule Active 220 mg PO TWICE A DAY as needed for Pain May 14, 2020 1:00am omeprazole 20 mg delayed release oral capsule (20 sources) Proton Pump Inhibitor Start: 12-17-2018 End: 05-14-2020 take 1 capsule by mouth once daily as needed for gastroesophageal reflux disease Omeprazole 20 mg capsule,delayed release(DR/EC) Discontinued 20 mg PO DAILY as needed for Heartburn February 07, 2019 2:39pm May 14, 2020 7:40am phentermine hydrochloride 30 mg oral capsule (18 sources) Sympathomimetic Amine Anorectic Start: 05-14-2020 End: 10-09-2020 take 1 capsule by mouth once daily 2 hour(s) after breakfast Phentermine 30 mg capsule Discontinued 30 mg PO DAILY May 14, 2020 1:00am October 09, 2020 6:54am must administer 2 hours after breakfast predniSONE 10 mg oral tablet (20 sources) Start: 05-19-2022 End: 09-19-2022 take 4 tablets by mouth once daily, then take 3 tablets by mouth once daily, then take 2 tablets by mouth once daily, then take 1 tablet by mouth once daily Prednisone 10 mg tablet Discontinued 10 mg PO As Directed 30 0 May 19, 2022 12:00am September 19, 2022 8:52am 4 tablets daily x3 days, then 3 tablets daily x3 days, then 2 tablets daily x3 days, then 1 tablet daily x3 days Start: 10-09-2020 End: 10-21-2020 Prednisone 10 mg tablet Disc ontinued 10 mg PO daily 30 12 0 October 09, 2020 12:00am October 20, 2020 12:00am October 21, 2020 12:01am Unspecified contact dermatitis, unspecified cause Take 4 tabs once daily days 1-3 3 tabs once daily days 4-6 2 tabs once daily days 7-9 and 1 tab once daily days 10-12. Problems Active Problems Problem Classification Problem Date Documented Da te Episodic/Chronic Abdominal pain (9 sources) Right inguinal pain; Translations: [Right lower quadrant pain] 04-25-2022 Episodic Coronary atherosclerosis and other heart disease (11 sources) Coronary arteriosclerosis; Translations: [Atherosclerotic heart disease of [place] coronary artery without angina pectoris] 09-19-2022 Chronic Crushing injury or internal injury (9 sources) Unspecified injury of femoral artery, right leg, initial encounter; Translations: [Injury of right femoral artery] 04-25-2022 Episodic Diabetes mellitus without complication (4 sources) Prediabetes; Translations: [Prediabetes] 10-23-2023 Episodic Disorders of lipid metabolism (20 sources) Mixed hyperlipidemia; Translations: [Hyperlipidemia] Onset: 01-15-2017 Chronic Essential hypertension (20 sources) Hypertensive disorder; Translations: [Essential (primary) hypertension] Chronic Gout and other crystal arthropathies (9 sources) Gout; Translations: [Gout, unspecified] 05-19-2022 Chronic Inflammation; infection of eye (except that caused by tuberculosis or sexually transmitteddisease) (8 sources) Hordeolum externum of left lower eyelid; Translations: [Hordeolum externum left lower eyelid] 03-24-2023 Episodic Nonspecific chest pain (20 sources) Chest pain; Translations: [Chest pain, unspecified] Episodic Other connective tissue disease (18 sources) Achilles tendinitis; Translations: [Achilles tendinitis, unspecified leg] 10-09-2020 Episodic Other connective tissue disease (18 sources) Swelling of lower limb; Translations: [Other specified soft tissue disorders] 02-01-2019 Episodic Other liver diseases (1 source) Fatty (change of) liver, not elsewhere classified; Translations: [Fatty (change of) liver, not elsewhere classified] Onset: 07-19-2024 Chronic Other lower respiratory disease (18 sources) Dyspnea; Translations: [Dyspnea, unspecified] 02-07-2019 Episodic Other nutritional; endocrine; and metabolic disorders (7 sources) Morbid obesity; Translations: [Morbid (severe) obesity due to excess calories] 09-19-2022 Chronic Other nutritional; endocrine; and metabolic disorders (2 sources) Morbid (severe) obesity due to excess calories; Translations: [Morbid obesity] 04-22-2023 Chronic Other screening for suspected conditions (not mental disorders or infectious disease) (18 sources) Cardiovascular stress test abnormal; Translations: [Abnormal result of other cardiovascular function study] 02-01-2019 Episodic Other upper respiratory infections (2 sources) Acute upper respiratory infection; Translations: [Acute upper respiratory infection, unspecified] 07-22-2024 Episodic Otitis media and related conditions (18 sources) Bilateral chronic serous otitis; Translations: [Chronic serous otitis media, bilateral] 01-18-2019 Chronic Residual codes; unclassified (19 sources) Obstructive sleep apnea syndrome; Translations: [Obstructive sleep apnea (adult) (pediatric)] 01-13-2022 Chronic Residual codes; unclassified (3 sources) Obstructive sleep apnea (adult) (pediatric); Translations: [Obstructive sleep apnea (adult)(pediatric)] 09-19-2022 Chronic Spondylosis; intervertebral disc disorders; other back problems (18 sources) Lumbar radiculopathy; Translations: [Radiculopathy, lumbar region] 02-01-2019 Episodic Sprains and strains (18 sources) Low back strain; Translations: [Strain of muscle, fascia and tendon of lower back, initial encounter] 02-01-2019 Episodic Viral infection (18 sources) Disease caused by 2019-nCoV; Translations: [COVID-19] 01-11-2021 Episodic Past or Other Problems Problem Classification Problem Date Documented Da te Episodic/Chronic Other nutritional; endocrine; and metabolic disorders (2 sources) Abnormal weight gain; Translations: [Abnormal weight gain] Onset: 01-15-2017 Episodic Results Test Name Value Interpretation Reference Range Facility Office Visit Reporton 2024 Office Visit Report [facility] [address] [place] [address] OFFICE VISIT Date of Service: 07/22/24 MR#: [id number] Acct: [id number] Patient: KAMALA BRASWELL Jr. Rep #: [id number] : 1970 Provider: DI Mota Age/Sex: 54/M Location: [facility] Status: Signed Employer Purchased Covid Test Note: Patient here today for Covid Testing, requested by their Employer. [facility] Billing Sheet Covid Covid Swab-Rapid: Yes 10/06/24 1137 Date Sylvain SEVILLA Cosigner Signature: Date (if applicable) CC: Normal [facility] - Microbiology an d Antimicrobial susceptibilityOrdered By: Sylvain Adler on 07-22-2024 SARS-CoV-2 (COVID-19) RNA RANDALL+probe Ql (Unsp spec) Not detected [facility] No Panel InformationOrdered By: Sylvain Adler on 07-22-2024 POC Nasal Swab Influenza A,B Not detected [facility] POC Nasal Swab RSV Not detected [facility] Office Visit Reporton 2024 Office Visit Report [facility] [address] [place] [address] OFFICE VISIT Date of Service: 07/22/24 MR#: [id number] Acct: [id number] Patient: KAMALA BRASWELL Jr. Rep #: [id number] : 1970 Provider: DI Mota Age/Sex: 53/M Location: [facility] Status: Signed Employer Purchased Covid Test Note: Patient here today for Covid Testing, requested by their Employer. Assessment and Plan Assessment and Plan Orders: Orders POC Cepheid Covid, FluAB, RSV Today 07/22/24 0842 Date Sylvain Arias Signature: Date (if applicable) CC: Normal [facility] Urgent Care Visit Reporton 0 07-22-2024 Urgent Care Visit Report [facility] [address], [address] [place] [address] OFFICE VISIT Date of Service: 07/22/24 MR#: [id number] Acct: [id number] Name: MICHAELLEKAMALA ADY Christiansen Rep #: [id number] : 1970 Provider: DI Mota Age/Sex: 53/M Location: [facility] Status: Signed Intake Vital Signs 10/23/23 08:24 07/22/24 08:06 Height 5 ft 9 in BP 138/82 H Blood Pressure Location Lt brachial Position Sitting Respiration 17 Pulse 71 Pulse Source NIBP Temp 98.3 F Temp Source Oral Pulse Oximetry (%) 97 Oxygen Delivery Method room air Intake Visit Reasons: COUGH, FEVER LAST NIGHT, SORE THROAT Chief Complaint: cough, congestion, fever, ST Grout Machine Operator Required: No Is patient in pain?: No Allergies No Known Allergies Allergy (Verified 07/22/24 08:07) Have you fallen in the past year?: No Nurse's Note: cough, congestion, fever, ST x less than 24 hours. [facility] Medical History Hordeolum externum left lower eyelid Coronary artery disease Chest tightness Exacerbation of gout Injury of right femoral artery Deep inguinal pain, right CORBIN on CPAP COVID-19 Hypertension Dyspnea Chest pain CORBIN treated with BiPAP Abnormal stress test Chronic serous otitis media of both ears Leg swelling Family history of colon cancer in father Prediabetes Morbid obesity Hyperlipidemia GERD (gastroesophageal reflux disease) Low back strain Radiculopathy, lumbar region Surgical History History of placement of ear tubes ( 01/18/19) Hx of left inguinal hernia repair Hx of tonsillectomy Family History Father Colon cancer Mother Hypertension Thyroid disorder CVA (cerebral vascular accident) Myocardial infarction Social History (Reviewed 10/23/23 @ 08:35 by Evelio Foss MANUFACTURING QUALITY ENGINEER, MANUFACTURING QUALITY ENGINEER-C) Smoking Status: Never smoker second hand exposure: No alcohol intake: current details: 1x a month substance use type: does not use caffeine: Yes Type: coffee and tea Number of servings: 2 what type of physical activity do you participate in: none and other HPI HPI Chief Complaint: cough, congestion, fever, ST Details: KAMALA BRASWELL, is a 53 M who presents to the office today for complaint of cough, congestion, fever and sore throat all started yesterday. Patient reports a fever with a Tmax of 102.4 ???F patient states that his cough is his worst symptom. No hemoptysis, shortness of breath or difficulty breathing. No loss of taste or smell. No nausea, vomiting or diarrhea. No other associated symptoms or alleviating/aggrava ting factors. ROS Const Constitutional: No other (As above) Exam Const General: cooperative and well developed HENOK Head: normal to inspection and atraumatic Ears: hearing grossly normal bilaterally Nose: nasal discharge clear Face and sinus: normal facial exam Mouth: oral mucosae normal Throat: abnormal tonsil bilaterally hypertrophy 1+ Resp Effort Inspection: normal respiratory effort and no audible wheezes Auscultation: Bilateral: Clear to Auscultation Cardio Rate: regular rate Rhythm: regular rhythm Neuro General: patient alert Psych Appearance: grossly normal Mental Status: mental status grossly normal Coding Level of Care Code Off vis,est,level 3 Diagnoses Acute upper respiratory infection J06.9 Assessment and Plan Assessment and Plan (1) Acute upper respiratory infection: Status: Acute Plan: Patient tested negative for COVID, influenza and RSV in the office today. Benzonatate as prescribed today. Encouraged to get plenty of rest, drink lots of clear liquids, and use Tylenol or Ibuprofen (unless contraindicated) for fever and comfort. Patient also educated on other symptomatic management techniques. To be seen in 7-10 days if no improvement; sooner if worsening of symptoms. Patient advised of potential red flags and when appropriate to report to the ED. Patient verbalized understanding and agreement with all the above. Orders: Orders POC Cepheid Covid, FluAB, RSV Today Medications: New benzonatate 200 mg (2 x 100 mg) PO TID PRN 30 caps 0RF cough ipratropium bromide administer into each nostril 2 sprays intranasal BID-TID PRN 30 mL 0RF postnasal drainage Clinical Quality Measures Falls Risk Screening/Assistive Devices Have you fallen in the past year?: No 07/22/24 0844 Date Sylvain Arias Signature: Date (if applicable) CC: Normal [facility] L501.5101on 07-15-2024 GGTP 27 IU/L Normal 0-65 [facility] Comment on above: Order Comment: LIVER CMP TESTS OVERLAP-ORDERED DBIL LIVER LIPID-WILBERTO OTHER TESTS-[facility] Result Comment: Perf ormed at: CB - [facility] [address] [id number] Supervisor Burling And Joining: Ruben Madison PhD, Phone: [phone] Performed By: #### L 500.4050, L501.9310, L501.4700, L501.9520, L500.4100, L501.5101, L100.0500 #### [facility] [address] [place] [address]. [place], [address] Anion gap in Serum or Plasma Ordered By: Lyla Ladd on 07-14-2024 Anion gap [Moles/Vol] 12 mmol/L 5- [facility] BUN/creatinine ratioOrdered By: Lyla Ladd on 07-14-2024 Urea nitrogen/Creatinine [Mass ratio] 17.4 mg/mg 10- [facility] Bilirubin directOrdered By: Lyla Ladd on 07-14-2024 Bilirubin.direct [Mass/Vol] 0.19 mg/dL 0.00-0.30 [facility] Bilirubin, Directon 07-15-19 25 Bilirubin.direct [Mass/Vol] 0.19 mg/dL Normal 0.00-0.30 [facility] Comment on above: Order Comment: LIVER CMP TESTS OVERLAP-ORDERED DBIL LIVER LIPID-LADD OTHER TESTS-[facility] Performed By: #### L 500.4050, L501.9310, L501.4700, L501.9520, L500.4100, L501.5101, L100.0500 #### [facility] [address], [address] Bilirubin, totalOrdered By: Lyla Ladd on 07-14-2024 Bilirubin [Mass/Vol] 0.49 mg/dL 0.00-1.30 [facility] CBC-Complete Blood Cnt No Di ffon 07-14-2024 Erythrocyte distribution width (RBC) [Ratio] 13.1 % Normal 11.6-14.6 [facility] Comment on above: Order Comment: LIVER CMP TESTS OVERLAP-ORDERED DBIL LIVER LIPID-LADD OTHER TESTS-JABOUR Performed By: #### L 500.4050, L501.9310, L501.4700, L501.9520, L500.4100, L501.5101, L100.0500 #### [facility] [address] [place], [address] Hematocrit (Bld) [Volume fraction] 40.8 % Normal 40-54 [facility] Comment on above: Order Comment: LIVER CMP TESTS OVERLAP-ORDERED DBIL LIVER LIPID-LADD OTHER TESTS-JABOUR Performed By: #### L 500.4050, L501.9310, L501.4700, L501.9520, L500.4100, L501.5101, L100.0500 #### [facility] [address] [place], [address] Hemoglobin (Bld) [Mass/Vol] 14.0 g/dL Normal 13.0-16.5 [facility] Comment on above: Order Comment: LIVER CMP TESTS OVERLAP-ORDERED DBIL LIVER LIPID-LADD OTHER TESTS-JABOUR Performed By: #### L 500.4050, L501.9310, L501.4700, L501.9520, L500.4100, L501.5101, L100.0500 #### [facility] [address] [place], [address] MCH (RBC) [Entitic mass] 31.7 pg Normal 27.0-32.0 [facility] Comment on above: Order Comment: LIVER CMP TESTS OVERLAP-ORDERED DBIL LIVER LIPID-LADD OTHER TESTS-JABOUR Performed By: #### L 500.4050, L501.9310, L501.4700, L501.9520, L500.4100, L501.5101, L100.0500 #### [facility] [address] [place], [address] MCHC (RBC) [Mass/Vol] 34.3 g/dL Normal 32-[address] [facility] Comment on above: Order Comment: LIVER CMP TESTS OVERLAP-ORDERED DBIL LIVER LIPID-LADD OTHER TESTS-JABOUR Performed By: #### L 500.4050, L501.9310, L501.4700, L501.9520, L500.4100, L501.5101, L100.0500 #### [facility] [address] [place], [address] MCV (RBC) [Entitic vol] 92.5 fL Normal 80-94 [facility] Comment on above: Order Comment: LIVER CMP TESTS OVERLAP-ORDERED DBIL LIVER LIPID-LADD OTHER TESTS-JABOUR Performed By: #### L 500.4050, L501.9310, L501.4700, L501.9520, L500.4100, L501.5101, L100.0500 #### [facility] [address] [place], [address] Platelet mean volume (Bld) [Entitic vol] 10.8 fL Normal 6.2-12.0 [facility] Comment on above: Order Comment: LIVER CMP TESTS OVERLAP-ORDERED DBIL LIVER LIPID-LADD OTHER TESTS-JABOUR Performed By: #### L 500.4050, L501.9310, L501.4700, L501.9520, L500.4100, L501.5101, L100.0500 #### [facility] [address] [place], [address] Platelets (Bld) [#/Vol] 268 10*3/uL Normal 150-450 [facility] Comment on above: Order Comment: LIVER CMP TESTS OVERLAP-ORDERED DBIL LIVER LIPID-LADD OTHER TESTS-JABOUR Performed By: #### L 500.4050, L501.9310, L501.4700, L501.9520, L500.4100, L501.5101, L100.0500 #### [facility] [address] [place], [address] RBC (Bld) [#/Vol] 4.41 10*6/uL Low 4.6-6.2 [facility] Comment on above: Order Comment: LIVER CMP TESTS OVERLAP-ORDERED DBIL LIVER LIPID-LADD OTHER TESTS-JABOUR Performed By: #### L 500.4050, L501.9310, L501.4700, L501.9520, L500.4100, L501.5101, L100.0500 #### [facility] [address] [place], [address] RDW SD 44.5 fl High 35.1-43.9 [facility] Comment on above: Order Comment: LIVER CMP TESTS OVERLAP-ORDERED DBIL LIVER LIPID-LADD OTHER TESTS-JABOUR Performed By: #### L 500.4050, L501.9310, L501.4700, L501.9520, L500.4100, L501.5101, L100.0500 #### [facility] [address] [place], [address] WBC (Bld) [#/Vol] 10.2 10*3/uL Normal 4.4-11.0 [facility] Comment on above: Order Comment: LIVER CMP TESTS OVERLAP-ORDERED DBIL LIVER LIPID-LADD OTHER TESTS-JABOUR Performed By: #### L 500.4050, L501.9310, L501.4700, L501.9520, L500.4100, L501.5101, L100.0500 #### [facility] [address] [place], [place], [id number] Calculated very low density lipoprotein (VLDL) cholesterol measurementOrdered By: Lyla Ladd on 07-14-2024 Calculated very low density lipoprotein (VLDL) cholesterol measurement 31 mg/dL 5-40 [facility] Carbon dioxide, total [Moles /volume] in Central venous bloodOrdered By: Lyla Ladd on 07-14-2024 CO2 [Moles/Vol] 23.0 mmol/L 21.0-32.0 [facility] Chloride assayOrdered By: Genie Ladd on 07-14-2024 Chloride [Moles/Vol] 103 mmol/L 98-108 [facility] Comprehensive Metabolic Prof ilon 07-14-2024 Albumin [Mass/Vol] 3.9 g/dL Normal 3.5-5.0 [facility] Comment on above: Order Comment: LIVER CMP TESTS OVERLAP-ORDERED DBIL LIVER LIPID-LADD OTHER TESTS-JABOUR Performed By: #### L 500.4050, L501.9310, L501.4700, L501.9520, L500.4100, L501.5101, L100.0500 #### [facility] [address] [place], [address] Albumin/Globulin [Mass ratio] 1.4 {ratio} Normal 0.9-2.4 [facility] Comment on above: Order Comment: LIVER CMP TESTS OVERLAP-ORDERED DBIL LIVER LIPID-LADD OTHER TESTS-JABOUR Performed By: #### L 500.4050, L501.9310, L501.4700, L501.9520, L500.4100, L501.5101, L100.0500 #### [facility] [address] [place], [address] ALK PHOS 102 U/L Normal 40-129 [facility] Comment on above: Order Comment: LIVER CMP TESTS OVERLAP-ORDERED DBIL LIVER LIPID-LADD OTHER TESTS-JABOUR Performed By: #### L 500.4050, L501.9310, L501.4700, L501.9520, L500.4100, L501.5101, L100.0500 #### [facility] [address] [place], [address] ALT [Catalytic activity/Vol] 29 U/L Normal <=46 [facility] Comment on above: Order Comment: LIVER CMP TESTS OVERLAP-ORDERED DBIL LIVER LIPID-LADD OTHER TESTS-JABOUR Performed By: #### L 500.4050, L501.9310, L501.4700, L501.9520, L500.4100, L501.5101, L100.0500 #### [facility] [address] [place], [address] AST [Catalytic activity/Vol] 26 U/L Normal <=37 [facility] Comment on above: Order Comment: LIVER CMP TESTS OVERLAP-ORDERED DBIL LIVER LIPID-LADD OTHER TESTS-JABOUR Performed By: #### L 500.4050, L501.9310, L501.4700, L501.9520, L500.4100, L501.5101, L100.0500 #### [facility] [address] [place], [address] Bilirubin [Mass/Vol] 0.49 mg/dL Normal 0.00-1.30 [facility] Comment on above: Order Comment: LIVER CMP TESTS OVERLAP-ORDERED DBIL LIVER LIPID-LADD OTHER TESTS-JABOUR Performed By: #### L 500.4050, L501.9310, L501.4700, L501.9520, L500.4100, L501.5101, L100.0500 #### [facility] [address] [place], [address] BUN/CRE 17.4 RATIO Normal 10-20 [facility] Comment on above: Order Comment: LIVER CMP TESTS OVERLAP-ORDERED DBIL LIVER LIPID-LADD OTHER TESTS-JABOUR Performed By: #### L 500.4050, L501.9310, L501.4700, L501.9520, L500.4100, L501.5101, L100.0500 #### [facility] [address] [place], [address] Calcium [Mass/Vol] 8.9 mg/dL Normal 7.6-11.0 [facility] Comment on above: Order Comment: LIVER CMP TESTS OVERLAP-ORDERED DBIL LIVER LIPID-LADD OTHER TESTS-JABOUR Performed By: #### L 500.4050, L501.9310, L501.4700, L501.9520, L500.4100, L501.5101, L100.0500 #### [facility] [address] [place], [address] Chloride [Moles/Vol] 103 mmol/L Normal 98-108 [facility] Comment on above: Order Comment: LIVER CMP TESTS OVERLAP-ORDERED DBIL LIVER LIPID-LADD OTHER TESTS-JABOUR Performed By: #### L 500.4050, L501.9310, L501.4700, L501.9520, L500.4100, L501.5101, L100.0500 #### [facility] [address] [place], [address] CO2 [Moles/Vol] 23.0 mmol/L Normal 21.0-32.0 [facility] Comment on above: Order Comment: LIVER CMP TESTS OVERLAP-ORDERED DBIL LIVER LIPID-LADD OTHER TESTS-JABOUR Performed By: #### L 500.4050, L501.9310, L501.4700, L501.9520, L500.4100, L501.5101, L100.0500 #### [facility] [address] [place], [address] Creatinine [Mass/Vol] 1.14 mg/dL Normal 0.70-1.[address] [facility] Comment on above: Order Comment: LIVER CMP TESTS OVERLAP-ORDERED DBIL LIVER LIPID-LADD OTHER TESTS-JABOUR Performed By: #### L 500.4050, L501.9310, L501.4700, L501.9520, L500.4100, L501.5101, L100.0500 #### [facility] [address] [place], [address] GAP 12 Normal 5-15 [facility] Comment on above: Order Comment: LIVER CMP TESTS OVERLAP-ORDERED DBIL LIVER LIPID-LADD OTHER TESTS-JUANA Performed By: #### L 500.4050, L501.9310, L501.4700, L501.9520, L500.4100, L501.5101, L100.0500 #### [facility] [address] [place], [address] GFR/1.73 sq M.predicted among non-blacks MDRD (S/P/Bld) [Vol rate/Area] 76 mL/min/{1.73_m2} Normal >60 [facility] Comment on above: Order Comment: LIVER CMP TESTS OVERLAP-ORDERED DBIL LIVER LIPID-LADD OTHER TESTS-JAMARJORIE Result Comment: mL/m in/1.73m2 CKD-EPI Creatinine Equation (2020) Performed By: #### L 500.4050, L501.9310, L501.4700, L501.9520, L500.4100, L501.5101, L100.0500 #### [facility] [address] [place], [address] Globulin (S) [Mass/Vol] 2.8 g/dL Normal 2.2-4.2 [facility] Comment on above: Order Comment: LIVER CMP TESTS OVERLAP-ORDERED DBIL LIVER LIPID-LADD OTHER TESTS-JABOUR Performed By: #### L 500.4050, L501.9310, L501.4700, L501.9520, L500.4100, L501.5101, L100.0500 #### [facility] [address] [place], [address] Glucose [Mass/Vol] 101 mg/dL High 70-99 [facility] Comment on above: Order Comment: LIVER CMP TESTS OVERLAP-ORDERED DBIL LIVER LIPID-LADD OTHER TESTS-JABOUR Performed By: #### L 500.4050, L501.9310, L501.4700, L501.9520, L500.4100, L501.5101, L100.0500 #### [facility] [address] [place], [address] Potassium [Moles/Vol] 4.5 mmol/L Normal 3.3-5.[address] [facility] Comment on above: Order Comment: LIVER CMP TESTS OVERLAP-ORDERED DBIL LIVER LIPID-LADD OTHER TESTS-JABOUR Performed By: #### L 500.4050, L501.9310, L501.4700, L501.9520, L500.4100, L501.5101, L100.0500 #### [facility] [address] [place], [address] Sodium [Moles/Vol] 138 mmol/L Normal 133-145 [facility] Comment on above: Order Comment: LIVER CMP TESTS OVERLAP-ORDERED DBIL LIVER LIPID-LADD OTHER TESTS-JABOUR Performed By: #### L 500.4050, L501.9310, L501.4700, L501.9520, L500.4100, L501.5101, L100.0500 #### [facility] [address] [place], [address] T PROT 6.7 g/dL Normal 5.9-8.4 [facility] Comment on above: Order Comment: LIVER CMP TESTS OVERLAP-ORDERED DBIL LIVER LIPID-LADD OTHER TESTS-MODESTOBOUR Performed By: #### L 500.4050, L501.9310, L501.4700, L501.9520, L500.4100, L501.5101, L100.0500 #### [facility] [address] [place], [place], [address] Urea nitrogen [Mass/Vol] 20 mg/dL High 4-19 [facility] Comment on above: Order Comment: LIVER CMP TESTS OVERLAP-ORDERED DBIL LIVER LIPID-LADD OTHER TESTS-JUANA Performed By: #### L 500.4050, L501.9310, L501.4700, L501.9520, L500.4100, L501.5101, L100.0500 #### [facility] [address] [place], [place], [id number] Erythrocyte distribution wid th ratioOrdered By: Lyla Ladd on 07-14-2024 Erythrocyte distribution width (RBC) [Ratio] 13.1 % 11.6-14.6 [facility] Erythrocyte distribution wid th standard deviationOrdered By: Lyla Ladd on 07-14-2024 Erythrocyte distribution width (RBC) [Ratio] 44.5 fl High 35.1-43.9 [facility] Gamma glutamyl transferase ( GGT) measurementOrdered By: Lyla Ladd on 07-14-2024 Amylase [Catalytic activity/Vol] 27 U/L 0-65 [facility] Comment on above: Performed at: [facility] [address] [employer] [id number] Director: Ruben Madison PhD, Phone: [phone] Glomerular filtration rate ( GFR) estimation/1.73 sq m using serum, plasma, or whole bOrdered By: Lyla Ladd on 07-14-2024 GFR/1.73 sq M.predicted among non-blacks MDRD (S/P/Bld) [Vol rate/Area] 76 mL/min/{1.73_m2} >60 [facility] Comment on above: mL/min/1.73m2 CKD-EP I Creatinine Equation (2020) Hematocrit Auto (Bld) [Volum e fraction]Ordered By: Lyla Ladd on 07-14-2024 Hematocrit (Bld) [Volume fraction] 40.8 % 40-54 [facility] Hemoglobin measurementOrdere d By: Lyla Ladd on 07-14-2024 Hemoglobin (Bld) [Mass/Vol] 14.0 g/dL 13.0-16.5 [facility] LDL calc ser/plasOrdered By: Lyla Ladd on 07-14-2024 Cholesterol in LDL [Mass/Vol] 88 mg/dL [facility] Comment on above: Mixqcofqxq=016-085 m g/dL & Higher Dnqr=353 mg/dL or greater Laboratory - Chemistry and C hemistry - challengeOrdered By: Lyla Ladd on 07-14-2024 AST [Catalytic activity/Vol] 26 U/L <38 [facility] Lipid Profileon 07-14-2024 CHOL:HDL 4.92 Normal [facility] Comment on above: Order Comment: LIVER CMP TESTS OVERLAP-ORDERED DBIL LIVER LIPID-LADD OTHER TESTS-JUANA Performed By: #### L 500.4050, L501.9310, L501.4700, L501.9520, L500.4100, L501.5101, L100.0500 #### [facility] [address] [place], [place], [id number] Cholesterol [Mass/Vol] 149 mg/dL Normal <=200 [facility] Comment on above: Order Comment: LIVER CMP TESTS OVERLAP-ORDERED DBIL LIVER LIPID-LADD OTHER TESTS-JUANA Result Comment: Chol esterol level, Desirable <200 mg/dL Borderline high cholesterol 200-239 mg/dL High cholesterol >=240 mg/dL Recommendations of the NCEP Adult Treatment Panel for the following risk-cutoff thresholds for the [place] population. Performed By: #### L 500.4050, L501.9310, L501.4700, L501.9520, L500.4100, L501.5101, L100.0500 #### [facility] [address] [place], [address] Cholesterol in HDL [Mass/Vol] 30 mg/dL Low [facility] Comment on above: Order Comment: LIVER CMP TESTS OVERLAP-ORDERED DBIL LIVER LIPID-LADD OTHER TESTS-JABOUR Result Comment: Maira onal Cholesterol Education Program (NCEP) guidelines: <40 mg/dL: Low HDL-cholesterol (major risk factor for CHD) >= 60 mg/dL: High HDL-cholesterol (negative risk factor for CHD) HDL-cholesterol is affected by a number of factors, e.g. smoking, exercise, hormones, sex and age. Performed By: #### L 500.4050, L501.9310, L501.4700, L501.9520, L500.4100, L501.5101, L100.0500 #### [facility] [address] [place], [address] Cholesterol in LDL [Mass/Vol] 88 mg/dL Normal [facility] Comment on above: Order Comment: LIVER CMP TESTS OVERLAP-ORDERED DBIL LIVER LIPID-LADD OTHER TESTS-JABOUR Result Comment: Bord wvldwl=590-373 mg/dL Higher Vfos=479 mg/dL or greater Performed By: #### L 500.4050, L501.9310, L501.4700, L501.9520, L500.4100, L501.5101, L100.0500 #### [facility] [address] [place], [address] Cholesterol in VLDL [Mass/Vol] 31 mg/dL Normal 5-40 [facility] Comment on above: Order Comment: LIVER CMP TESTS OVERLAP-ORDERED DBIL LIVER LIPID-LADD OTHER TESTS-JABOUR Performed By: #### L 500.4050, L501.9310, L501.4700, L501.9520, L500.4100, L501.5101, L100.0500 #### [facility] [address] [place], [address] Triglyceride [Mass/Vol] 153 mg/dL Normal [facility] Comment on above: Order Comment: LIVER CMP TESTS OVERLAP-ORDERED DBIL LIVER LIPID-WILBERTO OTHER TESTS-JUANA Result Comment: The drugs N-Acetylcysteine and Metamizole may falsely depress this assay. Normal range: <150 mg/dL Borderline High: 150-199 mg/dL High: 200-499 mg/dL Very High: >500 mg/dL Performed By: #### L 500.4050, L501.9310, L501.4700, L501.9520, L500.4100, L501.5101, L100.0500 #### [facility] [address] [place], [place], [id number] MCV (mean corpuscular volume ) determinationOrdered By: Lyla Ladd on 07-14-2024 MCV (RBC) [Entitic vol] 92.5 fL 80-94 [facility] Mean corpuscular hemoglobin (MCH) determinationOrdered By: Lyla Ladd on 07-14-2024 MCH (RBC) [Entitic mass] 31.7 pg 27.0-32.0 [facility] Mean corpuscular hemoglobin concentration (MCHC) determinationOrdered By: Lyla Ladd on 07-14-2024 MCHC (RBC) [Mass/Vol] 34.3 g/dL 32-[address] [facility] Mean platelet volume determi nationOrdered By: Lyla Ladd on 07-14-2024 Platelet mean volume (Bld) [Entitic vol] 10.8 fL 6.2-12.0 [facility] Platelet countOrdered By: Genie Ladd on 07-14-2024 Platelets (Bld) [#/Vol] 268 10*3/uL 150-450 [facility] Potassium measurement (mass/ volume)Ordered By: Lyla Ladd on 07-14-2024 Potassium (Unsp spec) [Mass/Vol] 4.5 mmol/L 3.3-5.1 [facility] RBC Auto (Bld) [#/Vol]Ordere d By: Lyla Ladd on 07-14-2024 RBC (Bld) [#/Vol] 4.41 10*6/uL Low 4.6-6.2 [facility] Screening total cholesterol/ high density lipoprotein (HDL) cholesterol ratioOrdered By: Lyla Ladd on 07-14-2024 Cholesterol.total/Cholest max in HDL [Mass ratio] 4.92 {ratio} [facility] Serum creatinine measurement (mass/volume)Ordered By: Lyla Ladd on 07-14-2024 Creatinine [Mass/Vol] 1.14 mg/dL 0.70-1.[address] [facility] Serum globulin measurementOr dered By: Lyla Ladd on 07-14-2024 Globulin (S) [Mass/Vol] 2.8 g/dL 2.2-4.2 [facility] Serum glucose measurement (m ass/volume)Ordered By: Lyla Ladd on 07-14-2024 Glucose [Mass/Vol] 101 mg/dL High 70-99 [facility] Serum or plasma alanine aguilera otransferase (ALT) measurementOrdered By: Lyla Ladd on 07-14-2024 ALT [Catalytic activity/Vol] 29 U/L <47 [facility] Serum or plasma albumin danica urement (mass/volume)Ordered By: Lyla Ladd on 07-14-2024 Albumin [Mass/Vol] 3.9 g/dL 3.5-5.0 [facility] Serum or plasma albumin/glob ulin mass ratioOrdered By: Lyla Ladd on 07-14-2024 Albumin/Globulin [Mass ratio] 1.4 {ratio} 0.9-2.4 [facility] Serum or plasma alkaline medina sphatase measurementOrdered By: Lyla Ladd on 07-14-2024 ALP [Catalytic activity/Vol] 102 U/L 40-129 [facility] Serum or plasma calcium danica urement (mass/volume)Ordered By: Lyla Ladd on 07-14-2024 Calcium [Mass/Vol] 8.9 mg/dL 7.6-11.0 [facility] Serum or plasma cholesterol in HDL measurement (mass/volume)Ordered By: Lyla Ladd on 07-14-2024 Cholesterol in HDL [Mass/Vol] 30 mg/dL Low >40 [facility] Comment on above: National Cholesterol Education Program (NCEP) guidelines:<40 mg/dL: Low HDL-cholesterol (major risk factor for CHD)>= 60 mg/dL: High HDL-cholesterol (negative risk factor for CHD)HDL-cholesterol is affected by a number of factors, e.g. smoking, exercise, hormones, sex and age. Serum or plasma cholesterol measurement (mass/volume)Ordered By: Lyla Ladd on 07-14-2024 Cholesterol [Mass/Vol] 149 mg/dL <201 [facility] Comment on above: Cholesterol level, D esirable <200 mg/dLBorderline high cholesterol 200-239 mg/dLHigh cholesterol >=240 mg/dLRecommendations of the NCEP Adult Treatment Panel for the following risk-cutoff thresholds for the [place] population. Serum or plasma urea nitroge n measurement (mass/volume)Ordered By: Lyla Ladd on 07-14-2024 Urea nitrogen [Mass/Vol] 20 mg/dL High 4-19 [facility] Sodium levelOrdered By: Ishan Ladd on 07-14-2024 Sodium [Moles/Vol] 138 mmol/L 133-145 [facility] T4 Total, Thyroxinon 025 T4 [Mass/Vol] 6.6 ug/dL Normal 4.5-12.1 [facility] Comment on above: Order Comment: LIVER CMP TESTS OVERLAP-ORDERED DBIL LIVER LIPID-WILBERTO OTHER TESTS-JUANA Performed By: #### L 500.4050, L501.9310, L501.4700, L501.9520, L500.4100, L501.5101, L100.0500 #### [facility] [address] [place], [address] TSH DL <= 0.005 mIU/L QnOrde red By: Lyla Ladd on 07-14-2024 TSH Qn 1.720 uIU/mL 0.300-4.200 [facility] Thyroid Stim Hormone (TSH)on 07-14-2024 TSH 1.720 uIU/mL Normal 0.300-4.200 [facility] Comment on above: Order Comment: LIVER CMP TESTS OVERLAP-ORDERED DBIL LIVER LIPID-WILBERTO OTHER TESTS-[facility] Performed By: #### L 500.4050, L501.9310, L501.4700, L501.9520, L500.4100, L501.5101, L100.0500 #### [facility] [address] [place], [address] ThyroxineOrdered By: Bettie Ladd on 07-14-2024 T4 [Mass/Vol] 6.6 ug/dL 4.5-12.1 [facility] Total proteinOrdered By: Christopher Ladd on 07-14-2024 Protein [Mass/Vol] 6.7 g/dL 5.9-8.4 [facility] Triglycerides measurementOrd ered By: Lyla Ladd on 07-14-2024 Triglyceride [Mass/Vol] 153 mg/dL <199 [facility] Comment on above: The drugs N-Acetylcy steine and Metamizole may falsely depress this assay. Normal range: <150 mg/dLBorderline High: 150-199 mg/dLHigh: 200-499 mg/dLVery High: >500 mg/dL White blood cell (WBC) count Ordered By: Lyla Ladd on 07-14-2024 WBC (Bld) [#/Vol] 10.2 10*3/uL 4.4-11.0 [facility] Cardiology Visit Reporton Cardiology Visit Report [facility] [address] [place] [address] OFFICE VISIT Date of Service: 10/23/23 MR#: [id number] Acct: [id number] Name: KAMALA BRASWELL JrOctavia Rep #: [id number] : 1970 Provider: FRANCISCO hancock Age/Sex: 53/M Location: [facility] Status: Signed [facility] History of Present Illness Details: 53-year-old male with past medical history of dyslipidemia, hypertension who originally referred to us because of chest pain and an abnormal stress test. The chest discomfort was retrosternal, felt like a tightness, worse with activity. Stress test was positive for ischemia in the anterior wall. EF was 65%. He underwent coronary angiography on 02/08/2019 which did not reveal any significant CAD. 2D echo was unremarkable as well. 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 He was started on Eliquis and the forearm claudication that he had resolved and patient has started an exercise program. He continued to acknowledge chest discomfort and underwent a stress test in January 2022. This was noted to be abnormal in the EKG portion. Thus, he proceeded with heart catheterization in February 2022 that showed nonobstructive disease. He denies chest, arm, jaw, or neck discomfort. He denies palpitations. He denies bilateral lower extremity edema. He denies claudication. He denies shortness of breath with activity, shortness of breath at rest, orthopnea, or PND. He denies chronic cough. He denies significant, sudden weight gain. He denies lightheadedness, dizziness, near-syncope, or syncope. He denies blood in urine, blood in stool, or epistaxis. He denies fever with chills. He denies myalgia. He denies fatigue. His exercise level has remained stable. 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 Is patient in pain?: No Allergies No Known Allergies Allergy (Verified 10/23/23 08:10) Medications ???Medication ???Instructions ???Recorded ???Confirmed ???Type naproxen sodium 220 mg capsule 220 mg PO BID PRN Pain 05/14/20 10/23/23 History (Aleve) multivitamin 1 tab PO DAILY 01/13/22 10/23/23 History aspirin 81 mg tablet,delayed 81 mg PO DAILY 02/11/22 10/23/23 History release (Adult Low Dose Aspirin) atorvastatin 40 mg tablet 40 mg PO QHS #90 tabs 02/14/22 10/23/23 Rx amlodipine 5 mg tablet 5 mg PO DAILY #90 tabs 03/10/23 10/23/23 Rx losartan 100 mg tablet 100 mg PO DAILY #90 tabs 04/22/23 10/23/23 Rx nitroglycerin 0.4 mg sublingual 0.4 mg sublingual Q5-15M PRN 04/22/23 10/23/23 History tablet naproxen 500 mg tablet (Naprosyn) 500 mg PO BID PRN pain #30 tabs 06/23/23 10/23/23 Rx tizanidine 4 mg capsule 4 mg PO Q8H PRN muscle spasticity 06/23/23 Rx #20 caps PFSH Medical History (Updated 10/23/23 @ 08:48 by Evelio Foss MANUFACTURING QUALITY ENGINEER, MANUFACTURING QUALITY ENGINEER-C) Hordeolum externum left lower eyelid Coronary artery disease Chest tightness Exacerbation of gout Injury of right femoral artery Deep inguinal pain, right CORBIN on CPAP COVID-19 Hypertension Dyspnea Chest pain CORBIN treated with BiPAP Abnormal stress test Chronic serous otitis media of both ears Leg swelling Family history of colon cancer in father Prediabetes Morbid obesity Hyperlipidemia GERD (gastroesophageal reflux disease) Low back strain Radiculopathy, lumbar region Surgical History History of placement of ear tubes ( 01/18/19) Hx of left inguinal hernia repair Hx of tonsillectomy Family History Father Colon cancer Mother Hypertension Thyroid disorder CVA (cerebral vascular accident) Myocardial infarction Social History Smoking Status: Never smoker second hand exposure: No alcohol intake: current details: 1x a month substance use type: does not use caffeine: Yes Type: coffee and tea Number of servings: 2 what type of physical activity do you participate in: none and other ROS Const Const: Negative for fatigue, weakness, body ache, fever(s) or chills ENT ENT: Negative for dizziness or Nosebleed/epistaxis Cardio Chest Pain: No Palpitations: No Edema: None Muscle aches with walking: None Resp Respiratory: Negative for SOB with activity, SOB at rest, SOB orthopnea SOB lying down, Cough or paroxysmal nocturnal dyspnea GI GI: Negative nausea, vomiting blood/hematemesis, bright, red blood in stools or black,tarry stools : Negative for hem (more content not included)... Normal [facility] Basophil percentageOrdered B y: Jere Zhu on 06-23-2023 Basophil percentage 0 SEEN /hpf 0-5 [facility] Bilirubin Test strip Ql (U)O rdered By: Jere Zhu on 06-23-2023 Bilirubin Ql (U) Negative Negative [facility] Ketones Test strip Ql (U)Ord ered By: Jere Zhu on 06-23-2023 Ketones Ql (U) Negative Negative [facility] Mucus LM Ql (Urine sed)Order ed By: Jere Zhu on 06-23-2023 Mucus Ql (Urine sed) 0 SEEN /hpf [facility] Nitrite Test strip Ql (U)Ord ered By: Jere Zhu on 06-23-2023 Nitrite Ql (U) Negative Negative [facility] No Panel InformationOrdered By: Jere Zhu on 06-23-2023 Urine RBC 0 SEEN /hpf 0-5 [facility] Protein Test strip Ql (U)Ord ered By: Jere Zhu on 06-23-2023 Protein Ql (U) Negative Negative [facility] Squamous epithelial cells de tection in urine sediment by light microscopyOrdered By: Jere Zhu on 06-23-2023 Epithelial cells.squamous LM Ql (Urine sed) 0 SEEN /hpf 0-5 [facility] Urine blood detectionOrdered By: Jere Zhu on 06-23-2023 RBC Ql (U) Negative Negative [facility] Urine clarityOrdered By: Kashif Zhu on 06-23-2023 Clarity (U) Clear Clear [facility] Urine color determinationOrd ered By: Jere Zhu on 06-23-2023 Color (U) Yellow Yellow [facility] Urine glucose detectionOrder ed By: Jere Zhu on 06-23-2023 Glucose Ql (U) Normal mg/dl Normal [facility] Urine leukocyte esterase det ection by dipstickOrdered By: Jere Zhu on 06-23-2023 Leukocyte esterase Test strip Ql (U) Negative Negative [facility] Urine pHOrdered By: Jere fish on 06-23-2023 pH (U) 7.0 [pH] 5.0 - 8.0 [facility] Urine sediment bacteria coun t by microscopy (number/high power field)Ordered By: Jere Zhu on 06-23-2023 Bacteria LM.HPF (Urine sed) [#/Area] 0 /[HPF] None Seen [facility] Urine specific gravity measu rementOrdered By: Jere Zhu on 06-23-2023 Specific gravity (U) [Rel density] 1.005 1.002-1.030 [facility] Urine urobilinogen measureme ntOrdered By: Jere Zhu on 06-23-2023 Urobilinogen Ql (U) Normal mg/dl Normal [facility] Basophil percentageOrdered B y: Marilyn Gordon on 05-09-2023 Basophil percentage < 10.0 IU/mL <[address] [facility] No Panel InformationOrdered By: Marilyn Gordon on 05-09-2023 Anti-Nuclear Antibody Screen Negative Negative [facility] Comment on above: Performed at: [employer] [facility] [address] [id number] Director: Ruben Madison PhD, Phone: [phone] Basophil percentageOrdered B y: [place] on 04-29-2023 Bilirubin [Mass/Vol] 0.50 mg/dL 0.20-1.00 [facility] Comment on above: For patients on eltr ombopag therapy, use of Dimension [place] TBIL is not recommended. Chloride [Moles/Vol] 108 mmol/L 98-107 [facility] Cholesterol [Mass/Vol] 134 mg/dL <200 [facility] Comment on above: <200 mg/dL Desirable 200-240 mg/dL Borderline >240 mg/dL High Risk Glucose [Mass/Vol] 107 mg/dL 74-106 [facility] Comment on above: Fasting Glucose resu lt from 100 to 125 mg/dL suggests IMPAIRED HOMEOSTASIS per A.D.A. criteria. Potassium [Moles/Vol] 3.9 mmol/L 3.5-5.[address] [facility] Protein [Mass/Vol] 6.9 g/dL 6.4-8.2 [facility] Sodium [Moles/Vol] 138 mmol/L 136-145 [facility] Triglyceride [Mass/Vol] 115 mg/dL <199 [facility] Comment on above: The drugs N-Acetylcy steine and Metamizole may falsely depress this assay.Serum Triglycerides Reference Interval Normal <150 mg/dL Borderline high 150 - 199 mg/dL High 200 - 499 mg/dL Very High > or = 500 mg/dL Laboratory - Chemistry and C hemistry - challengeOrdered By: [place] on 04-29-2023 Albumin/Globulin [Mass ratio] 1.0 {ratio} 0.9-2.4 [facility] ALP [Catalytic activity/Vol] 108 U/L 45-117 [facility] ALT [Catalytic activity/Vol] 36 U/L 16-61 [facility] Cholesterol in HDL [Mass/Vol] 39 mg/dL >40 [facility] Comment on above: The drugs N-Acetylcy steine and Metamizole may falsely depress this assay. Reference Range HDL <40 mg/dL Low HDL Cholesterol HDL >or= 60 mg/dL High HDL Cholesterol Cholesterol in LDL [Mass/Vol] 72 mg/dL 0-130 [facility] CO2 [Moles/Vol] 25.0 mmol/L 21.0-32.0 [facility] Globulin (S) [Mass/Vol] 3.5 g/dL 2.2-4.2 [facility] Urea nitrogen/Creatinine [Mass ratio] 15.5 mg/mg 10-20 [facility] No Panel InformationOrdered By: [place] on 04-29-2023 Urine Microalbumin/Creatinine Ratio 6.4 mg/g CRE <30 [facility] Estimated GFR (MDRD) Amer 90 mL/min >60 [facility] Comment on above: GFR Calc Estimated GFR (MDRD) Non-Af Amer 74 mL/min >60 [facility] Comment on above: Non- GFR Calc Prostate Specific Antigen Screen 0.77 ng/mL 0.00-4.00 [facility] Comment on above: This test was perfor med using the TPSA assay method for the[employer] chemistry system. Values obtained with differentassay methods cannot be used interchangably.When changing PSA assays in the course of monitoring apatient, additional sequential testing should be carriedout to confirm baseline values. VLDL Cholesterol 23 mg/dL 5-40 [facility] Serum or plasma calcium danica urement (mass/volume)Ordered By: [place] on 04-29-2023 Calcium [Mass/Vol] 8.6 mg/dL 8.5-10.1 [facility] Serum or plasma creatinine m easurement (mass/volume)Ordered By: [place] on 04-29-2023 Creatinine [Mass/Vol] 1.10 mg/dL 0.70-1.[address] [facility] Comment on above: The validity of the calculated GFR & GFRAA in patients over 70 years has not been determined. Clinical correlation is essential. Serum or plasma urea nitroge n measurement (mass/volume)Ordered By: [place] on 04-29-2023 Urea nitrogen [Mass/Vol] 17 mg/dL 7-18 [facility] Thin prep Papanicolaou smear with manual screeningOrdered By: [place] on 04-29-2023 Thin prep Papanicolaou smear with manual screening 5.3 mg/L NO RANGE EST. [facility] Thin prep Papanicolaou smear with manual screening 3.4 g/dL 3.2-5.0 [facility] Thin prep Papanicolaou smear with manual screening 20 U/L 15-37 [facility] Thin prep Papanicolaou smear with manual screening 5 5-15 [facility] Urine creatinine measurement (mass/volume)Ordered By: [place] on 04-29-2023 Creatinine (U) [Mass/Vol] 82.00 mg/dL NO RANGE EST. [facility] Whole blood hemoglobin A1c/t otal hemoglobin ratio (mass fraction)Ordered By: [place] on 04-29-2023 HbA1c (Bld) [Mass fraction] 5.9 % 3.8-5.6 [facility] Comment on above: Normal < 5.7 % Predi abetic 5.7 - 6.4 % Diabetic >or= 6.5 % Please note range changes. Basophil percentageOrdered B y: Marilyn Gordon on 09-17-2022 Bilirubin [Mass/Vol] 0.60 mg/dL 0.20-1.00 [facility] Comment on above: For patients on eltr ombopag therapy, use of Dimension [place] TBIL is not recommended. Chloride [Moles/Vol] 104 mmol/L 98-107 [facility] Cholesterol [Mass/Vol] 138 mg/dL <200 [facility] Comment on above: <200 mg/dL Desirable 200-240 mg/dL Borderline >240 mg/dL High Risk Glucose [Mass/Vol] 104 mg/dL 74-106 [facility] Comment on above: Fasting Glucose resu lt from 100 to 125 mg/dL suggests IMPAIRED HOMEOSTASIS per A.D.A. criteria. Potassium [Moles/Vol] 4.5 mmol/L 3.5-5.[address] [facility] Comment on above: Moderate Hemolysis, Result may be falsely increased. Protein [Mass/Vol] 7.2 g/dL 6.4-8.2 [facility] Sodium [Moles/Vol] 136 mmol/L 136-145 [facility] Triglyceride [Mass/Vol] 221 mg/dL <199 [facility] Comment on above: The drugs N-Acetylcy steine and Metamizole may falsely depress this assay.Serum Triglycerides Reference Interval Normal <150 mg/dL Borderline high 150 - 199 mg/dL High 200 - 499 mg/dL Very High > or = 500 mg/dL Laboratory - Chemistry and C hemistry - challengeOrdered By: Marilyn Gordon on 09-17-2022 ALP [Catalytic activity/Vol] 105 U/L 45-117 [facility] ALT [Catalytic activity/Vol] 40 U/L 16-61 [facility] CO2 [Moles/Vol] 29.0 mmol/L 21.0-32.0 [facility] Globulin (S) [Mass/Vol] 4.0 g/dL 2.2-4.2 [facility] Urea nitrogen/Creatinine [Mass ratio] 12.3 mg/mg 10-20 [facility] No Panel InformationOrdered By: Marilyn Gordon on 09-17-2022 Estimated GFR (MDRD) Amer 86 mL/min >60 [facility] Comment on above: GFR Calc Estimated GFR (MDRD) Non-Af Amer 71 mL/min >60 [facility] Comment on above: Non- GFR Calc Serum or plasma albumin danica urement (mass/volume)Ordered By: Marilyn Gordon on 09-17-2022 Albumin [Mass/Vol] 3.2 g/dL 3.2-5.0 [facility] Serum or plasma albumin/glob ulin mass ratioOrdered By: Marilyn Gordon on 09-17-2022 Albumin/Globulin [Mass ratio] 0.8 {ratio} 0.9-2.4 [facility] Serum or plasma calcium danica urement (mass/volume)Ordered By: Marilyn Gordon on 09-17-2022 Calcium [Mass/Vol] 8.5 mg/dL 8.5-10.1 [facility] Serum or plasma cholesterol in HDL measurement (mass/volume)Ordered By: Marilyn Gordon on 09-17-2022 Cholesterol in HDL [Mass/Vol] 37 mg/dL >40 [facility] Comment on above: The drugs N-Acetylcy steine and Metamizole may falsely depress this assay. Reference Range HDL <40 mg/dL Low HDL Cholesterol HDL >or= 60 mg/dL High HDL Cholesterol Serum or plasma cholesterol in VLDL measurement (mass/volume)Ordered By: Marilyn Gordon on 09-17-2022 Cholesterol in VLDL [Mass/Vol] 44 mg/dL 5-40 [facility] Serum or plasma creatinine m easurement (mass/volume)Ordered By: Marilyn Gordon on 09-17-2022 Creatinine [Mass/Vol] 1.14 mg/dL 0.70-1.[address] [facility] Comment on above: The validity of the calculated GFR & GFRAA in patients over 70 years has not been determined. Clinical correlation is essential. Serum or plasma low density lipoprotein (LDL) cholesterol measurement (mass/volume)Ordered By: Marilyn Gordon on 09-17-2022 Cholesterol in LDL [Mass/Vol] 57 mg/dL 0-130 [facility] Serum or plasma urea nitroge n measurement (mass/volume)Ordered By: Marilyn Gordon on 09-17-2022 Urea nitrogen [Mass/Vol] 14 mg/dL 7-18 [facility] Thin prep Papanicolaou smear with manual screeningOrdered By: Marilyn Gordon on 09-17-2022 Thin prep Papanicolaou smear with manual screening 49 U/L 15-37 [facility] Comment on above: Moderate Hemolysis, Result may be falsely increased. Thin prep Papanicolaou smear with manual screening 3 5-15 [facility] Thin prep Papanicolaou smear with manual screening < 5.0 mg/L NO RANGE EST. [facility] Whole blood hemoglobin A1c/t otal hemoglobin ratio (mass fraction)Ordered By: Marilyn Gordon on 09-17-2022 HbA1c (Bld) [Mass fraction] 5.7 % 3.8-5.6 [facility] Comment on above: Normal < 5.7 % Predi abetic 5.7 - 6.4 % Diabetic >or= 6.5 % Please note range changes. Basophil percentageOrdered B y: Marilyn Gordon on 05-08-2022 Bilirubin [Mass/Vol] 0.50 mg/dL 0.20-1.00 [facility] Comment on above: For patients on eltr ombopag therapy, use of Dimension [place] TBIL is not recommended. Chloride [Moles/Vol] 104 mmol/L 98-107 [facility] Cholesterol [Mass/Vol] 180 mg/dL <200 [facility] Comment on above: <200 mg/dL Desirable 200-240 mg/dL Borderline >240 mg/dL High Risk Glucose [Mass/Vol] 112 mg/dL 74-106 [facility] Comment on above: Fasting Glucose resu lt from 100 to 125 mg/dL suggests IMPAIRED HOMEOSTASIS per A.D.A. criteria. Potassium [Moles/Vol] 4.2 mmol/L 3.5-5.[address] [facility] Comment on above: Moderate Hemolysis, Result may be falsely increased. Protein [Mass/Vol] 7.5 g/dL 6.4-8.2 [facility] Sodium [Moles/Vol] 139 mmol/L 136-145 [facility] Triglyceride [Mass/Vol] 244 mg/dL <199 [facility] Comment on above: The drugs N-Acetylcy steine and Metamizole may falsely depress this assay.Serum Triglycerides Reference Interval Normal <150 mg/dL Borderline high 150 - 199 mg/dL High 200 - 499 mg/dL Very High > or = 500 mg/dL Laboratory - Chemistry and C hemistry - challengeOrdered By: Marilyn Gordon on 05-08-2022 ALP [Catalytic activity/Vol] 83 U/L 45-117 [facility] ALT [Catalytic activity/Vol] 50 U/L 16-61 [facility] CO2 [Moles/Vol] 28.0 mmol/L 21.0-32.0 [facility] Globulin (S) [Mass/Vol] 3.8 g/dL 2.2-4.2 [facility] Urea nitrogen/Creatinine [Mass ratio] 17.7 mg/mg 10-20 [facility] No Panel InformationOrdered By: Marilyn Gordon on 05-08-2022 Estimated GFR (MDRD) Amer 87 mL/min >60 [facility] Comment on above: GFR Calc Estimated GFR (MDRD) Non-Af Amer 72 mL/min >60 [facility] Comment on above: Non- GFR Calc Serum or plasma albumin danica urement (mass/volume)Ordered By: Marilyn Gordon on 05-08-2022 Albumin [Mass/Vol] 3.7 g/dL 3.2-5.0 [facility] Serum or plasma albumin/glob ulin mass ratioOrdered By: Marilyn Gordon on 05-08-2022 Albumin/Globulin [Mass ratio] 1.0 {ratio} 0.9-2.4 [facility] Serum or plasma calcium danica urement (mass/volume)Ordered By: Marilyn Gordon on 05-08-2022 Calcium [Mass/Vol] 9.1 mg/dL 8.5-10.1 [facility] Serum or plasma cholesterol in HDL measurement (mass/volume)Ordered By: Marilyn Gordon on 05-08-2022 Cholesterol in HDL [Mass/Vol] 38 mg/dL >40 [facility] Comment on above: The drugs N-Acetylcy steine and Metamizole may falsely depress this assay. Reference Range HDL <40 mg/dL Low HDL Cholesterol HDL >or= 60 mg/dL High HDL Cholesterol Serum or plasma cholesterol in VLDL measurement (mass/volume)Ordered By: Marilyn Gordon on 05-08-2022 Cholesterol in VLDL [Mass/Vol] 49 mg/dL 5-40 [facility] Serum or plasma creatinine m easurement (mass/volume)Ordered By: Marilyn Gordon on 05-08-2022 Creatinine [Mass/Vol] 1.13 mg/dL 0.70-1.[address] [facility] Comment on above: The validity of the calculated GFR & GFRAA in patients over 70 years has not been determined. Clinical correlation is essential. Serum or plasma low density lipoprotein (LDL) cholesterol measurement (mass/volume)Ordered By: Marilyn Gordon on 05-08-2022 Cholesterol in LDL [Mass/Vol] 93 mg/dL 0-130 [facility] Serum or plasma urea nitroge n measurement (mass/volume)Ordered By: Marilyn Gordon on 05-08-2022 Urea nitrogen [Mass/Vol] 20 mg/dL 7-18 [facility] Thin prep Papanicolaou smear with manual screeningOrdered By: Marilyn Gordon on 05-08-2022 Thin prep Papanicolaou smear with manual screening 40 U/L 15-37 [facility] Comment on above: Moderate Hemolysis, Result may be falsely increased. Thin prep Papanicolaou smear with manual screening 7 5-15 [facility] Whole blood hemoglobin A1c/t otal hemoglobin ratio (mass fraction)Ordered By: Marilyn Gordon on 05-08-2022 HbA1c (Bld) [Mass fraction] 5.3 % 3.8-5.6 [facility] Comment on above: Normal < 5.7 % Predi abetic 5.7 - 6.4 % Diabetic >or= 6.5 % Please note range changes. Absolute lymphocyte countOrd ered By: Evelio Foss on 02-15-2022 Lymphocytes Auto (Unsp spec) [#/Vol] 2.02 10*3/uL 0.83-4.51 [facility] Basophil percentageOrdered B y: Evelio Foss on 02-15-2022 Basophils/100 WBC (Bld) 0.3 % 0-1 [facility] Chloride [Moles/Vol] 107 mmol/L 98-107 [facility] Eosinophils/100 WBC (Bld) 1.4 % 0-5 [facility] Glucose [Mass/Vol] 103 mg/dL 74-106 [facility] Comment on above: Fasting Glucose resu lt from 100 to 125 mg/dL suggests IMPAIRED HOMEOSTASIS per A.D.A. criteria. Neutrophils (Bld) [#/Vol] 6.2 10*3/uL 2.0-7.7 [facility] Neutrophils/100 WBC (Bld) 67.2 % 47-70 [facility] Potassium [Moles/Vol] 3.9 mmol/L 3.5-5.[address] [facility] Sodium [Moles/Vol] 139 mmol/L 136-145 [facility] WBC (Bld) [#/Vol] 9.3 10*3/uL 4.4-11.0 [facility] Blood erythrocytes count (nu mber/volume)Ordered By: Evelio Foss on 02-15-2022 RBC (Bld) [#/Vol] 4.51 10*6/uL 4.6-6.2 [facility] Blood hemoglobin measurement (mass/volume)Ordered By: Evelio Foss on 02-15-2022 Hemoglobin (Bld) [Mass/Vol] 14.4 g/dL 13.0-16.5 [facility] Blood lymphocytes/100 leukoc ytesOrdered By: Evelio Foss on 02-15-2022 Lymphocytes/100 WBC (Bld) 21.8 % 19-41 [facility] Blood monocytes/100 leukocyt esOrdered By: Evelio Foss on 02-15-2022 Monocytes/100 WBC (Bld) 8.5 % 0-10 [facility] Blood platelet mean volumeOr dered By: Evelio Foss on 02-15-2022 Platelet mean volume (Bld) [Entitic vol] 11.2 fL 6.2-12.0 [facility] Determination of erythrocyte mean corpuscular volume (MCV)Ordered By: Evelio Foss on 02-15-2022 MCV (RBC) [Entitic vol] 95.1 fL 80-94 [facility] Hematocrit Auto (Bld) [Volum e fraction]Ordered By: Evelio Foss on 02-15-2022 Hematocrit (Bld) [Volume fraction] 42.9 % 40-54 [facility] Laboratory - Chemistry and C hemistry - challengeOrdered By: Evelio Foss on 02-15-2022 CO2 [Moles/Vol] 28.0 mmol/L 21.0-32.0 [facility] Urea nitrogen/Creatinine [Mass ratio] 12.4 mg/mg 10-20 [facility] Laboratory - Hematology and Cell countsOrdered By: Evelio Foss on 02-15-2022 Erythrocyte distribution width (RBC) [Entitic vol] 46.5 fL 35.1-43.9 [facility] Erythrocyte distribution width (RBC) [Ratio] 13.4 % 11.6-14.6 [facility] Immature granulocytes/100 WBC (Bld) 0.800 % 0.0-0.9 [facility] Comment on above: IG% - Immature Granu locytes (promyelocytes, myelocytes and metamyelocytes) > 1% indicates that a LEFT SHIFT is Present. MCH (RBC) [Entitic mass] 31.9 pg 27.0-32.0 [facility] Nucleated RBC/100 WBC (Bld) [Ratio] 0 % 0-5 [facility] MCHC Auto (RBC) [Mass/Vol]Or dered By: Evelio Foss on 02-15-2022 MCHC (RBC) [Mass/Vol] 33.6 g/dL 32-[address] [facility] No Panel InformationOrdered By: Evelio Foss on 02-15-2022 Estimated GFR (MDRD) Amer 88 mL/min >60 [facility] Comment on above: GFR Calc Estimated GFR (MDRD) Non-Af Amer 72 mL/min >60 [facility] Comment on above: Non- GFR Calc Platelets bldOrdered By: Feliz Foss on 02-15-2022 Platelets (Bld) [#/Vol] 238 10*3/uL 150-450 [facility] Serum or plasma calcium danica urement (mass/volume)Ordered By: Evelio Foss on 02-15-2022 Calcium [Mass/Vol] 9.2 mg/dL 8.5-10.1 [facility] Serum or plasma creatinine m easurement (mass/volume)Ordered By: Evelio Foss on 02-15-2022 Creatinine [Mass/Vol] 1.13 mg/dL 0.70-1.[address] [facility] Comment on above: The validity of the calculated GFR & GFRAA in patients over 70 years has not been determined. Clinical correlation is essential. Serum or plasma urea nitroge n measurement (mass/volume)Ordered By: Evelio Foss on 02-15-2022 Urea nitrogen [Mass/Vol] 14 mg/dL 7-18 [facility] Thin prep Papanicolaou smear with manual screeningOrdered By: Evelio Foss on 02-15-2022 Thin prep Papanicolaou smear with manual screening 4 5-15 [facility] Laboratory - Microbiology an d Antimicrobial susceptibilityon 11-08-2021 SARS-CoV-2 (COVID-19) RNA RANDALL+probe Ql (Unsp spec) Not detected [facility] Work Phone: Basophil percentageon 2021 Bilirubin [Mass/Vol] 0.40 mg/dL 0.20-1.00 [facility] Work Phone: Comment on above: For patients on eltr ombopag therapy, use of Dimension [place] TBIL is not recommended. Chloride [Moles/Vol] 106 mmol/L 98-107 [facility] Work Phone: Cholesterol [Mass/Vol] 212 mg/dL <200 [facility] Work Phone: Comment on above: <200 mg/dL Desirable 200-240 mg/dL Borderline >240 mg/dL High Risk Glucose [Mass/Vol] 98 mg/dL 74-106 [facility] Work Phone: Potassium [Moles/Vol] 4.2 mmol/L 3.5-5.[address] [facility] Work Phone: Protein [Mass/Vol] 7.6 g/dL 6.4-8.2 [facility] Work Phone: Sodium [Moles/Vol] 139 mmol/L 136-145 [facility] Work Phone: Triglyceride [Mass/Vol] 150 mg/dL <199 [facility] Work Phone: Comment on above: The drugs N-Acetylcy steine and Metamizole may falsely depress this assay.Serum Triglycerides Reference Interval Normal <150 mg/dL Borderline high 150 - 199 mg/dL High 200 - 499 mg/dL Very High > or = 500 mg/dL Laboratory - Chemistry and C hemistry - challengeon 10-22-2021 ALP [Catalytic activity/Vol] 77 U/L 45-117 [facility] Work Phone: ALT [Catalytic activity/Vol] 40 U/L 16-61 [facility] Work Phone: CO2 [Moles/Vol] 28.0 mmol/L 21.0-32.0 [facility] Work Phone: Globulin (S) [Mass/Vol] 4.1 g/dL 2.2-4.2 [facility] Work Phone: Urea nitrogen/Creatinine [Mass ratio] 13.7 mg/mg 10-20 [facility] Work Phone: No Panel Informationon 10-22 Estimated GFR (MDRD) Amer 79 mL/min >60 [facility] Work Phone: Comment on above: GFR Calc Estimated GFR (MDRD) Non-Af Amer 65 mL/min >60 [facility] Work Phone: Comment on above: Non- GFR Calc Prostate Specific Antigen Screen 0.79 ng/mL 0.00-4.00 [facility] Work Phone: Comment on above: This test was perfor med using the TPSA assay method for [employer] chemistry system. Values obtained with differentassay methods cannot be used interchangably.When changing PSA assays in the course of monitoring apatient, additional sequential testing should be carriedout to confirm baseline values. Serum or plasma albumin danica urement (mass/volume)on 10-22-2021 Albumin [Mass/Vol] 3.5 g/dL 3.2-5.0 [facility] Work Phone: Serum or plasma albumin/glob ulin mass ratioon 10-22-2021 Albumin/Globulin [Mass ratio] 0.9 {ratio} 0.9-2.4 [facility] Work Phone: Serum or plasma calcium danica urement (mass/volume)on 10-22-2021 Calcium [Mass/Vol] 9.1 mg/dL 8.5-10.1 [facility] Work Phone: Serum or plasma cholesterol in HDL measurement (mass/volume)on 10-22-2021 Cholesterol in HDL [Mass/Vol] 38 mg/dL >40 [facility] Work Phone: Comment on above: The drugs N-Acetylcy steine and Metamizole may falsely depress this assay. Reference Range HDL <40 mg/dL Low HDL Cholesterol HDL >or= 60 mg/dL High HDL Cholesterol Serum or plasma cholesterol in VLDL measurement (mass/volume)on 10-22-2021 Cholesterol in VLDL [Mass/Vol] 30 mg/dL 5-40 [facility] Work Phone: Serum or plasma creatinine m easurement (mass/volume)on 10-22-2021 Creatinine [Mass/Vol] 1.24 mg/dL 0.70-1.[address] [facility] Work Phone: Comment on above: The validity of the calculated GFR & GFRAA in patients over 70 years has not been determined. Clinical correlation is essential. Serum or plasma low density lipoprotein (LDL) cholesterol measurement (mass/volume)on 10-22-2021 Cholesterol in LDL [Mass/Vol] 144 mg/dL 0-130 [facility] Work Phone: Serum or plasma urea nitroge n measurement (mass/volume)on 10-22-2021 Urea nitrogen [Mass/Vol] 17 mg/dL 7-18 [facility] Work Phone: Thin prep Papanicolaou smear with manual screeningon 10-22-2021 Thin prep Papanicolaou smear with manual screening 27 U/L 15-37 [facility] Work Phone: Thin prep Papanicolaou smear with manual screening 5 5-15 [facility] Work Phone: Whole blood hemoglobin A1c/t otal hemoglobin ratio (mass fraction)on 08-06-2021 HbA1c (Bld) [Mass fraction] 5.4 % 3.8-5.6 [facility] Work Phone: Comment on above: Normal < 5.7 % Predi abetic 5.7 - 6.4 % Diabetic >or= 6.5 % Please note range changes. No Panel Informationon 04-22 SARS-CoV-2 Antigen (Rapid) [facility] Work Phone: Basophil percentageon 2021 Bilirubin [Mass/Vol] 0.30 mg/dL 0.20-1.00 [facility] Work Phone: Comment on above: For patients on eltr ombopag therapy, use of Dimension [place] TBIL is not recommended. Chloride [Moles/Vol] 105 mmol/L 98-107 [facility] Work Phone: Cholesterol [Mass/Vol] 228 mg/dL <200 [facility] Work Phone: Comment on above: <200 mg/dL Desirable 200-240 mg/dL Borderline >240 mg/dL High Risk Glucose [Mass/Vol] 93 mg/dL 74-106 [facility] Work Phone: Comment on above: Please note revised GLUCOSE reference range effective 2017. Potassium [Moles/Vol] 4.1 mmol/L 3.5-5.[address] [facility] Work Phone: Protein [Mass/Vol] 7.7 g/dL 6.4-8.2 [facility] Work Phone: Sodium [Moles/Vol] 140 mmol/L 136-145 [facility] Work Phone: Triglyceride [Mass/Vol] 136 mg/dL [facility] Work Phone: Comment on above: The drugs N-Acetylcy steine and Metamizole may falsely depress this assay.Serum Triglycerides Reference Interval Normal <150 mg/dL Borderline high 150 - 199 mg/dL High 200 - 499 mg/dL Very High > or = 500 mg/dL Laboratory - Chemistry and C hemistry - challengeon 03-18-2021 ALP [Catalytic activity/Vol] 79 U/L 45-117 [facility] Work Phone: ALT [Catalytic activity/Vol] 38 U/L 16-61 [facility] Work Phone: CO2 [Moles/Vol] 27.0 mmol/L 21.0-32.0 [facility] Work Phone: Globulin (S) [Mass/Vol] 4.2 g/dL 2.2-4.2 [facility] Work Phone: Urea nitrogen/Creatinine [Mass ratio] 13.0 mg/mg 10- [facility] Work Phone: No Panel Informationon 03-18 Estimated GFR (MDRD) Amer 93 mL/min >60 [facility] Work Phone: Comment on above: GFR Calc Estimated GFR (MDRD) Non-Af Amer 77 mL/min >60 [facility] Work Phone: Comment on above: Non- GFR Calc Serum or plasma albumin danica urement (mass/volume)on 03-18-2021 Albumin [Mass/Vol] 3.5 g/dL 3.2-5.0 [facility] Work Phone: Serum or plasma albumin/glob ulin mass ratioon 03-18-2021 Albumin/Globulin [Mass ratio] 0.8 {ratio} 0.9-2.4 [facility] Work Phone: Serum or plasma calcium danica urement (mass/volume)on 03-18-2021 Calcium [Mass/Vol] 8.7 mg/dL 8.5-10.1 [facility] Work Phone: Serum or plasma cholesterol in HDL measurement (mass/volume)on 03-18-2021 Cholesterol in HDL [Mass/Vol] 39 mg/dL [facility] Work Phone: Comment on above: The drugs N-Acetylcy steine and Metamizole may falsely depress this assay. Reference Range HDL <40 mg/dL Low HDL Cholesterol HDL >or= 60 mg/dL High HDL Cholesterol Serum or plasma cholesterol in VLDL measurement (mass/volume)on 03-18-2021 Cholesterol in VLDL [Mass/Vol] 27 mg/dL 5-40 [facility] Work Phone: Serum or plasma creatinine m easurement (mass/volume)on 03-18-2021 Creatinine [Mass/Vol] 1.08 mg/dL 0.70-1.[address] [facility] Work Phone: Comment on above: The validity of the calculated GFR & GFRAA in patients over 70 years has not been determined. Clinical correlation is essential. Serum or plasma low density lipoprotein (LDL) cholesterol measurement (mass/volume)on 03-18-2021 Cholesterol in LDL [Mass/Vol] 162 mg/dL 0-130 [facility] Work Phone: Serum or plasma urea nitroge n measurement (mass/volume)on 03-18-2021 Urea nitrogen [Mass/Vol] 14 mg/dL 7-18 [facility] Work Phone: Thin prep Papanicolaou smear with manual screeningon 03-18-2021 Thin prep Papanicolaou smear with manual screening 26 U/L 15-37 [facility] Work Phone: Thin prep Papanicolaou smear with manual screening 8 5-15 [facility] Work Phone: Whole blood hemoglobin A1c/t otal hemoglobin ratio (mass fraction)on 03-18-2021 HbA1c (Bld) [Mass fraction] 5.3 % 3.8-5.6 [facility] Work Phone: Comment on above: Normal < 5.7 % Predi abetic 5.7 - 6.4 % Diabetic >or= 6.5 % Please note range changes. .GFRon 01-15-2017 eGFR (non-black) mL/min/{1.73_m2} Normal [facility] ([place]) Comment on above: Result Comment: GFR Population mean for , Non- Americans Ages 20-29 = 116 mL/min/1.73 sq.m. Ages 30-39 = 107 mL/min/1.73 sq.m. Ages 40-49 = 99 mL/min/1.73 sq.m. Ages 50-59 = 93 mL/min/1.73 sq.m. Ages 60-69 = 85 mL/min/1.73 sq.m. Ages 70+ = 75 mL/min/1.73 sq.m.Chronic Kidney Disease: Less than 60 mL/min/1.73 square metersEnd Stage Renal Disease: Less than 15 mL/min/1.73 square meters Performed By: #### L IPID, CMP, GFR, TSH ####[address] [place], [place] [address] eGFR (non-black) 105 ml/min/1.73sqm Normal [facility] ([place]) Comment on above: Result Comment: GFR Population mean for , Non- Americans Ages 20-29 = 116 mL/min/1.73 sq.m. Ages 30-39 = 107 mL/min/1.73 sq.m. Ages 40-49 = 99 mL/min/1.73 sq.m. Ages 50-59 = 93 mL/min/1.73 sq.m. Ages 60-69 = 85 mL/min/1.73 sq.m. Ages 70+ = 75 mL/min/1.73 sq.m.Chronic Kidney Disease: Less than 60 mL/min/1.73 square metersEnd Stage Renal Disease: Less than 15 mL/min/1.73 square meters Performed By: #### L IPID, CMP, GFR, TSH ####[address] [place], [place] [address] CMPon 01-15-2017 Alanine aminotransferase (ALT) 41 U/L High 10-35 [facility] ([place]) Comment on above: Performed By: #### L IPID, CMP, GFR, TSH ####[address] [place], [place] [address] Albumin 4.1 G/dL Normal 3.5-5.0 [facility] ([place]) Comment on above: Performed By: #### L IPID, CMP, GFR, TSH ####[address] [place], [place] [address] Albumin/Globulin Ratio 1.5 {ratio} Normal 1.1-2.5 A [facility] ([place]) Comment on above: Performed By: #### L IPID, CMP, GFR, TSH ####[address] [place], [place] [address] Alk Phos 76 IU/L Normal 40-135 [facility] ([place]) Comment on above: Performed By: #### L IPID, CMP, GFR, TSH ####[address] [place], [place] [address] Aspartate aminotransferase (AST) 27 U/L Normal 10-40 [facility] ([place]) Comment on above: Performed By: #### L IPID, CMP, GFR, TSH ####[address] [place], [place] [address] Bili Total 0.4 mg/dL Normal 0.2-1.0 [facility] ([place]) Comment on above: Performed By: #### L IPID, CMP, GFR, TSH ####[address] [place], [place] [address] BUN/Creatinine Ratio 14 ratio Normal 7-27 [facility] ([place]) Comment on above: Performed By: #### L IPID, CMP, GFR, TSH ####[address] [place], [place] [address] Calcium 9.2 mg/dL Normal 8.4-10.2 [facility] ([place]) Comment on above: Performed By: #### L IPID, CMP, GFR, TSH ####[address] [place], [place] [address] Chloride 102 mmol/L Normal 98-107 [facility] ([place]) Comment on above: Performed By: #### L IPID, CMP, GFR, TSH ####[address] [place], [place] [address] CO2 27 mmol/L Normal 22-29 [facility] ([place]) Comment on above: Performed By: #### L IPID, CMP, GFR, TSH ####[address] [place], [place] [address] Creatinine 0.9 mg/dL Normal 0.6-1.2 [facility] ([place]) Comment on above: Performed By: #### L IPID, CMP, GFR, TSH ####[address] [place], [place] [address] Electrolyte Balance 9.0 mEq/L Normal [facility] ([place]) Comment on above: Performed By: #### L IPID, CMP, GFR, TSH ####[address] [place], [place] [address] Globulin 2.8 G/dL Normal [facility] ([place]) Comment on above: Performed By: #### L IPID, CMP, GFR, TSH ####[id number] [place], [place] [address] Glucose mass conc 103 mg/dL Normal 70-105 [facility] ([place]) Comment on above: Performed By: #### L IPID, CMP, GFR, TSH ####[address] [place], [place] [address] Potassium molar conc 4.5 mmol/L Normal 3.5-5.1 [facility] ([place]) Comment on above: Performed By: #### L IPID, CMP, GFR, TSH ####[id number] [place], [place] [address] Protein 6.9 G/dL Normal 6.0-8.3 [facility] ([place]) Comment on above: Performed By: #### L IPID, CMP, GFR, TSH ####[address] [place], [place] [address] Sodium 138 mmol/L Normal 136-146 [facility] ([place]) Comment on above: Performed By: #### L IPID, CMP, GFR, TSH ####[id number] [place], [place] [address] Urea nitrogen 13.0 mg/dL Normal 7.0-18.0 [facility] ([place]) Comment on above: Performed By: #### L IPID, CMP, GFR, TSH ####[address] [place], [place] [address] LIPIDon 01-15-2017 Cholesterol 227 mg/dL High 131-200 [facility] ([place]) Comment on above: Result Comment: Chol esterol Reference Interval:Less than 200 [id number] Borderline high [id number] and above High risk Performed By: #### L IPID, CMP, GFR, TSH ####[address] [place], [place] [address] HDL Cholesterol 40 mg/dL Normal 35-90 [facility] ([place]) Comment on above: Result Comment: HDL Reference Interval:Less than 40 Low - high risk60 or above Optimal/lowers risk Performed By: #### L IPID, CMP, GFR, TSH ####[id number] [place], [place] [address] LDL Cholesterol 150 mg/dL High 0-130 [facility] ([place]) Comment on above: Result Comment: LDL is a calculated result and requires a 12-hr fast.LDL Reference Interval:Less than 100 [id number] Near or above [id number] Borderline high [id number] High [id number] and above Very high risk Performed By: #### L IPID, CMP, GFR, TSH ####[address] [place], [place] [address] Triglyceride 184 mg/dL High 40-150 [facility] ([place]) Comment on above: Result Comment: Trig lyceride Reference Interval:Less than 150 [id number] Borderline high [id number] High sfxm113 or higher Very high risk Performed By: #### L IPID, CMP, GFR, TSH ####[address] [place], [place] [address] TSHon 01-15-2017 Thyroid stimulating hormone (TSH) 1.34 mcIU/mL Normal 0.27-4.20 [facility] ([place]) Comment on above: Performed By: #### L IPID, CMP, GFR, TSH ####[id number] [place], [place] [address] Vital Signs Date Time Vital Sign Value Performing Clinician Ronit [email or web address] 10-19-2024 07:09-0400 Body height 175.26 cm Marilyn SINGH Work Phone: [facility] 10-19-2024 07:09-0400 Body mass index (BMI) [Ratio] 49.6 kg/m2 Marilyn SINGH Work Phone: [facility] 10-19-2024 07:09-0400 Body weight 152.4 kg Marilyn SINGH Work Phone: [facility] 10-19-2024 07:09-0400 Diastolic blood pressure 76 mm[Hg] Marilyn SINGH Work Phone: [facility] 10-19-2024 07:09-0400 Heart rate 64 /min Marilyn SINGH Work Phone: [facility] 10-19-2024 07:09-0400 Respiratory rate 20 /min Marilyn Gordon MANUFACTURING QUALITY ENGINEER-C Work Phone: [facility] 10-19-2024 07:09-0400 SaO2% (BldA) [Mass fraction] 97 % Marilyn Gordon MANUFACTURING QUALITY ENGINEER-C Work Phone: [facility] 10-19-2024 07:09-0400 Systolic blood pressure 122 mm[Hg] Marilyn Gordon MANUFACTURING QUALITY ENGINEER-C Work Phone: [facility] 07-22-2024 08:06-0400 Body temperature 98.3 [degF] Marilyn Mcnultyson MANUFACTURING QUALITY ENGINEER-C Work Phone: [facility] 07-22-2024 08:06-0400 Diastolic blood pressure 82 mm[Hg] Marilyn Gordon MANUFACTURING QUALITY ENGINEER-C Work Phone: [facility] 07-22-2024 08:06-0400 Heart rate 71 /min Marilyn Gordon MANUFACTURING QUALITY ENGINEER-C Work Phone: [facility] 07-22-2024 08:06-0400 Respiratory rate 17 /min Marilyn Gordon MANUFACTURING QUALITY ENGINEER-C Work Phone: [facility] 07-22-2024 08:06-0400 SaO2% (BldA) [Mass fraction] 97 % Marilyn Gordon MANUFACTURING QUALITY ENGINEER-C Work Phone: [facility] 07-22-2024 08:06-0400 Systolic blood pressure 138 mm[Hg] Marilyn Gordon MANUFACTURING QUALITY ENGINEER-C Work Phone: [facility] 06-23-2023 21:12-0400 Body temperature 97.9 [degF] MANUFACTURING QUALITY ENGINEER-C Marilyn Gordon MANUFACTURING QUALITY ENGINEER Work Phone: [facility] 06-23-2023 21:12-0400 Diastolic blood pressure 95 mm[Hg] MANUFACTURING QUALITY ENGINEER-C Marilyn Gordon MANUFACTURING QUALITY ENGINEER Work Phone: [facility] 06-23-2023 21:12-0400 Heart rate 62 /min MANUFACTURING QUALITY ENGINEER-C aMrilyn Gordon MANUFACTURING QUALITY ENGINEER Work Phone: [facility] 06-23-2023 21:12-0400 Respiratory rate 16 /min MANUFACTURING QUALITY ENGINEER-C Marilyn Gordon MANUFACTURING QUALITY ENGINEER Work Phone: [facility] 06-23-2023 21:12-0400 SaO2% (BldA) [Mass fraction] 97 % MANUFACTURING QUALITY ENGINEER-C Marilyn Gordon MANUFACTURING QUALITY ENGINEER Work Phone: [facility] 06-23-2023 21:12-0400 Systolic blood pressure 170 mm[Hg] MANUFACTURING QUALITY ENGINEER-C Marilyn Gordon MANUFACTURING QUALITY ENGINEER Work Phone: [facility] 06-23-2023 19:27-0400 Body mass index (BMI) [Ratio] 53 kg/m2 MANUFACTURING QUALITY ENGINEER-C Marilyn Gordon MANUFACTURING QUALITY ENGINEER Work Phone: [facility] 06-23-2023 19:27-0400 Body weight 162.9 kg MANUFACTURING QUALITY ENGINEER-C Marilyn Gordon MANUFACTURING QUALITY ENGINEER Work Phone: [facility] 06-23-2023 17:17-0400 Body height 175.26 cm MANUFACTURING QUALITY ENGINEER-C Marilyn Gordon MANUFACTURING QUALITY ENGINEER Work Phone: [facility] 04-22-2023 08:46-0500 Body height 175.26 cm MANUFACTURING QUALITY ENGINEER-C Marilyn Gordon MANUFACTURING QUALITY ENGINEER Work Phone: [facility] 04-22-2023 08:46-0500 Body mass index (BMI) [Ratio] 50.5 kg/m2 MANUFACTURING QUALITY ENGINEER-C Marilyn Gordon MANUFACTURING QUALITY ENGINEER Work Phone: [facility] 04-22-2023 08:46-0500 Body weight 155.12 kg MANUFACTURING QUALITY ENGINEER-C Marilyn Gordon MANUFACTURING QUALITY ENGINEER Work Phone: [facility] 04-22-2023 08:46-0500 Diastolic blood pressure 88 mm[Hg] MANUFACTURING QUALITY ENGINEER-C Marilyn Gordon MANUFACTURING QUALITY ENGINEER Work Phone: [facility] 04-22-2023 08:46-0500 Heart rate 64 /min MANUFACTURING QUALITY ENGINEER-C Marilyn Gordon MANUFACTURING QUALITY ENGINEER Work Phone: [facility] 04-22-2023 08:46-0500 Respiratory rate 16 /min MANUFACTURING QUALITY ENGINEER-C Marilyn Gordon MANUFACTURING QUALITY ENGINEER Work Phone: [facility] 04-22-2023 08:46-0500 Systolic blood pressure 144 mm[Hg] MANUFACTURING QUALITY ENGINEER-C Marilyn Gordon MANUFACTURING QUALITY ENGINEER Work Phone: [facility] 03-24-2023 06:54-0500 Body temperature 98.3 [degF] MANUFACTURING QUALITY ENGINEER-C Marilyn Gordon MANUFACTURING QUALITY ENGINEER Work Phone: [facility] 03-24-2023 06:54-0500 Diastolic blood pressure 80 mm[Hg] MANUFACTURING QUALITY ENGINEER-C Marilyn Gordon MANUFACTURING QUALITY ENGINEER Work Phone: [facility] 03-24-2023 06:54-0500 Heart rate 78 /min MANUFACTURING QUALITY ENGINEER-C Marilyn Gordon MANUFACTURING QUALITY ENGINEER Work Phone: [facility] 03-24-2023 06:54-0500 Respiratory rate 14 /min MANUFACTURING QUALITY ENGINEER-C Marilyn Gordon MANUFACTURING QUALITY ENGINEER Work Phone: [facility] 03-24-2023 06:54-0500 SaO2% (BldA) [Mass fraction] 98 % MANUFACTURING QUALITY ENGINEER-C Marilyn Gordon MANUFACTURING QUALITY ENGINEER Work Phone: [facility] 03-24-2023 06:54-0500 Systolic blood pressure 140 mm[Hg] MANUFACTURING QUALITY ENGINEER-C Marilyn Gordon MANUFACTURING QUALITY ENGINEER Work Phone: [facility] 09-19-2022 14:36-0400 Body height 175.26 cm MANUFACTURING QUALITY ENGINEER-C Marilyn Gordon MANUFACTURING QUALITY ENGINEER Work Phone: [facility] 09-19-2022 14:36-0400 Body mass index (BMI) [Ratio] 48.9 kg/m2 MANUFACTURING QUALITY ENGINEER-C Marilyn Gordon MANUFACTURING QUALITY ENGINEER Work Phone: [facility] 09-19-2022 14:36-0400 Body weight 150.13 kg MANUFACTURING QUALITY ENGINEER-C Marilyn Gordon MANUFACTURING QUALITY ENGINEER Work Phone: [facility] 09-19-2022 14:36-0400 Diastolic blood pressure 94 mm[Hg] MANUFACTURING QUALITY ENGINEER-C Marilyn Gordon MANUFACTURING QUALITY ENGINEER Work Phone: [facility] 09-19-2022 14:36-0400 Heart rate 68 /min MANUFACTURING QUALITY ENGINEER-C Marilyn Gordon MANUFACTURING QUALITY ENGINEER Work Phone: [facility] 09-19-2022 14:36-0400 Respiratory rate 18 /min MANUFACTURING QUALITY ENGINEER-C Marilyn Gordon MANUFACTURING QUALITY ENGINEER Work Phone: [facility] 09-19-2022 14:36-0400 Systolic blood pressure 150 mm[Hg] MANUFACTURING QUALITY ENGINEER-C Marilyn Gordon MANUFACTURING QUALITY ENGINEER Work Phone: [facility] 05-19-2022 16:48-0400 Body temperature 97.4 [degF] MANUFACTURING QUALITY ENGINEER-C Marilyn Gordon MANUFACTURING QUALITY ENGINEER Work Phone: [facility] 05-19-2022 16:48-0400 Diastolic blood pressure 90 mm[Hg] MANUFACTURING QUALITY ENGINEER-C Marilyn Gordon MANUFACTURING QUALITY ENGINEER Work Phone: [facility] 05-19-2022 16:48-0400 Heart rate 67 /min MANUFACTURING QUALITY ENGINEER-C Marilyn Gordon MANUFACTURING QUALITY ENGINEER Work Phone: [facility] 05-19-2022 16:48-0400 Respiratory rate 18 /min MANUFACTURING QUALITY ENGINEER-C Marilyn Gordon MANUFACTURING QUALITY ENGINEER Work Phone: [facility] 05-19-2022 16:48-0400 SaO2% (BldA) [Mass fraction] 98 % MANUFACTURING QUALITY ENGINEER-C Marilyn Gordon MANUFACTURING QUALITY ENGINEER Work Phone: [facility] 05-19-2022 16:48-0400 Systolic blood pressure 140 mm[Hg] MANUFACTURING QUALITY ENGINEER-C Marilyn Gordon MANUFACTURING QUALITY ENGINEER Work Phone: [facility] 03-06-2022 11:22-0500 Body height 175.26 cm MANUFACTURING QUALITY ENGINEER-C Marilyn Gordon MANUFACTURING QUALITY ENGINEER Work Phone: [facility] 03-06-2022 11:20-0500 Body mass index (BMI) [Ratio] 48.4 kg/m2 MANUFACTURING QUALITY ENGINEER-C Marilyn Gordon MANUFACTURING QUALITY ENGINEER Work Phone: [facility] 03-06-2022 11:20-0500 Body weight 148.77 kg MANUFACTURING QUALITY ENGINEER-C Marilyn Gordon MANUFACTURING QUALITY ENGINEER Work Phone: [facility] 03-06-2022 11:20-0500 Diastolic blood pressure 81 mm[Hg] MANUFACTURING QUALITY ENGINEER-C Marilyn Gordon MANUFACTURING QUALITY ENGINEER Work Phone: [facility] 03-06-2022 11:20-0500 Heart rate 72 /min MANUFACTURING QUALITY ENGINEER-C Marilyn Gordon MANUFACTURING QUALITY ENGINEER Work Phone: [facility] 03-06-2022 11:20-0500 Respiratory rate 18 /min MANUFACTURING QUALITY ENGINEER-C Marilyn Gordon MANUFACTURING QUALITY ENGINEER Work Phone: [facility] 03-06-2022 11:20-0500 SaO2% (BldA) [Mass fraction] 97 % MANUFACTURING QUALITY ENGINEER-C Marilyn Gordon MANUFACTURING QUALITY ENGINEER Work Phone: [facility] 03-06-2022 11:20-0500 Systolic blood pressure 133 mm[Hg] MANUFACTURING QUALITY ENGINEER-C Marilyn Gordon MANUFACTURING QUALITY ENGINEER Work Phone: [facility] 02-19-2022 09:01-0500 Body height 175.26 cm MANUFACTURING QUALITY ENGINEER-C Marilyn Gordon MANUFACTURING QUALITY ENGINEER Work Phone: [facility] Work Phone: 02-19-2022 09:01-0500 Body weight 147.41 kg MANUFACTURING QUALITY ENGINEER-C Marilyn Gordon MANUFACTURING QUALITY ENGINEER Work Phone: [facility] 02-18-2022 07:17-0500 Body mass index (BMI) [Ratio] 47.9 kg/m2 MANUFACTURING QUALITY ENGINEER-C Marilyn Gordon MANUFACTURING QUALITY ENGINEER Work Phone: [facility] 01-13-2022 15:05-0500 Body height 175.26 cm MANUFACTURING QUALITY ENGINEER-C Marilyn Gordon MANUFACTURING QUALITY ENGINEER Work Phone: [facility] Work Phone: 01-13-2022 15:05-0500 Body mass index (BMI) [Ratio] 48.1 kg/m2 MANUFACTURING QUALITY ENGINEER-C Marilyn Gordon MANUFACTURING QUALITY ENGINEER Work Phone: [facility] Work Phone: 01-13-2022 15:05-0500 Body weight 147.87 kg MANUFACTURING QUALITY ENGINEER-C Marilyn Gordon MANUFACTURING QUALITY ENGINEER Work Phone: [facility] Work Phone: 01-13-2022 15:05-0500 Diastolic blood pressure 92 mm[Hg] MANUFACTURING QUALITY ENGINEER-C Marilyn Gordon MANUFACTURING QUALITY ENGINEER Work Phone: [facility] Work Phone: 01-13-2022 15:05-0500 Heart rate 86 /min MANUFACTURING QUALITY ENGINEER-C Marilyn Gordon MANUFACTURING QUALITY ENGINEER Work Phone: [facility] Work Phone: 01-13-2022 15:05-0500 Respiratory rate 16 /min MANUFACTURING QUALITY ENGINEER-C Marilyn Gordon MANUFACTURING QUALITY ENGINEER Work Phone: [facility] Work Phone: 01-13-2022 15:05-0500 Systolic blood pressure 148 mm[Hg] MANUFACTURING QUALITY ENGINEER-C Marilyn Gordon MANUFACTURING QUALITY ENGINEER Work Phone: [facility] Work Phone: 11-08-2021 06:51-0400 Body mass index (BMI) [Ratio] 46 kg/m2 MANUFACTURING QUALITY ENGINEER-C Marliyn Gordon MANUFACTURING QUALITY ENGINEER Work Phone: [facility] Work Phone: 11-08-2021 06:51-0400 Body temperature 98.7 [degF] MANUFACTURING QUALITY ENGINEER-C Marilyn Gordon MANUFACTURING QUALITY ENGINEER Work Phone: [facility] Work Phone: 11-08-2021 06:51-0400 Body weight 142.65 kg MANUFACTURING QUALITY ENGINEER-C Marilyn Gordon MANUFACTURING QUALITY ENGINEER Work Phone: [facility] Work Phone: 11-08-2021 06:51-0400 Diastolic blood pressure 80 mm[Hg] MANUFACTURING QUALITY ENGINEER-C Marilyn Gordon MANUFACTURING QUALITY ENGINEER Work Phone: [facility] Work Phone: 11-08-2021 06:51-0400 Heart rate 76 /min MANUFACTURING QUALITY ENGINEER-C Marilyn Gordon MANUFACTURING QUALITY ENGINEER Work Phone: [facility] Work Phone: 11-08-2021 06:51-0400 Respiratory rate 18 /min MANUFACTURING QUALITY ENGINEER-C Marilyn Gordon MANUFACTURING QUALITY ENGINEER Work Phone: [facility] Work Phone: 11-08-2021 06:51-0400 Systolic blood pressure 118 mm[Hg] MANUFACTURING QUALITY ENGINEER-C Marilyn Gordon MANUFACTURING QUALITY ENGINEER Work Phone: [facility] Work Phone: Encounters Encounter Date Encounter Type Care Provider Facility Start: 10-20-2024 End: 10-20-2024 ambulatory Marilyn Gordon Facility:[facility] [place] [facility] Start: 10-20-2024 End: 10-20-2024 Patient encounter procedure Radha Mello MANUFACTURING QUALITY ENGINEER-C -[facility] Work Phone: Start: 07-22-2024 End: 07-22-2024 Patient encounter procedure Sylvain Adler PA -[facility] Work Phone: Start: 07-22-2024 End: 07-22-2024 ambulatory Marilyn Gordon MANUFACTURING QUALITY ENGINEER-C Work Phone: [facility] Work Phone: Start: 07-14-2024 End: 07-14-2024 ambulatory Marilyn Gordon MANUFACTURING QUALITY ENGINEER-C Work Phone: [facility] Work Phone: Start: 07-14-2024 End: 07-14-[address] Ruben Marie MD -Laboratory, [place] Work Phone: Start: 07-14-2024 End: 07-14-2024 ambulatory Ruben Marie Facility:[facility] Start: 10-23-2023 End: 10-23-2023 ambulatory Marilyn Gordon Facility:[facility] Start: 06-23-2023 End: 06-23-2023 Emergency department patient visit MANUFACTURING QUALITY ENGINEER-C Marilyn Gordon MANUFACTURING QUALITY ENGINEER Work Phone: [facility]-Emergency Department Work Phone: Start: 05-09-2023 End: 05-09-2023 ambulatory MANUFACTURING QUALITY ENGINEER-C Marilyn Gordon MANUFACTURING QUALITY ENGINEER Work Phone: [facility] Work Phone: Start: 05-09-2023 End: 05-09-2023 Patient encounter procedure MANUFACTURING QUALITY ENGINEER-C Marilyn Gordon MANUFACTURING QUALITY ENGINEER Work Phone: [facility]Laboratory Work Phone: Start: 04-29-2023 End: 04-29-2023 Patient encounter procedure MANUFACTURING QUALITY ENGINEER-C Marilyn Gordon MANUFACTURING QUALITY ENGINEER Work Phone: [facility] Work Phone: Start: 04-22-2023 End: 04-22-2023 Patient encounter procedure MANUFACTURING QUALITY ENGINEER-C Marilyn Gordon MANUFACTURING QUALITY ENGINEER Work Phone: [facility] Work Phone: Start: 03-24-2023 End: 03-24-2023 Patient encounter procedure MANUFACTURING QUALITY ENGINEER-C Marilyn Gordon MANUFACTURING QUALITY ENGINEER Work Phone: [facility] Work Phone: Start: 09-19-2022 End: 09-19-2022 Patient encounter procedure MANUFACTURING QUALITY ENGINEER-C Marilyn Gordon MANUFACTURING QUALITY ENGINEER Work Phone: [facility] Work Phone: Start: 09-17-2022 End: 09-17-2022 ambulatory MANUFACTURING QUALITY ENGINEER-C Marilyn Gordon MANUFACTURING QUALITY ENGINEER Work Phone: [facility] Work Phone: Start: 09-17-2022 End: 09-17-2022 Patient encounter procedure MANUFACTURING QUALITY ENGINEER-C Marilyn Gordon MANUFACTURING QUALITY ENGINEER Work Phone: [facility] Work Phone: Start: 06-03-2022 End: 06-03-2022 ambulatory MANUFACTURING QUALITY ENGINEER-C Marilyn Gordon MANUFACTURING QUALITY ENGINEER Work Phone: [facility] Work Phone: Start: 06-03-2022 End: 06-03-2022 Patient encounter procedure MANUFACTURING QUALITY ENGINEER-C Marilyn Gordon MANUFACTURING QUALITY ENGINEER Work Phone: [facility] Start: 05-19-2022 End: 05-19-2022 Patient encounter procedure MANUFACTURING QUALITY ENGINEER-C Marilyn Gordon MANUFACTURING QUALITY ENGINEER Work Phone: [facility] Start: 05-08-2022 End: 05-08-2022 ambulatory MANUFACTURING QUALITY ENGINEER-C Marilyn Gordon MANUFACTURING QUALITY ENGINEER Work Phone: [facility] Work Phone: Start: 05-08-2022 End: 05-08-2022 Patient encounter procedure MANUFACTURING QUALITY ENGINEER-C Marilyn Gordon MANUFACTURING QUALITY ENGINEER Work Phone: [facility]-Laboratory Start: 04-28-2022 Non-patient / Non-visit MANUFACTURING QUALITY ENGINEER-C Hemal Gordon MANUFACTURING QUALITY ENGINEER Work Phone: [facility] Start: 04-28-2022 End: 04-28-2022 Patient encounter procedure MANUFACTURING QUALITY ENGINEER-C Marilyn Gordon MANUFACTURING QUALITY ENGINEER Work Phone: [facility] Start: 03-06-2022 End: 03-06-2022 Patient encounter procedure MANUFACTURING QUALITY ENGINEER-C Marilyn Gordon MANUFACTURING QUALITY ENGINEER Work Phone: [facility] Start: 02-19-2022 End: 02-19-2022 Admission to same day surgery center MANUFACTURING QUALITY ENGINEER-C Marilyn Gordon MANUFACTURING QUALITY ENGINEER Work Phone: [facility]Special Procedures Start: 02-19-2022 End: 02-19-2022 ambulatory MANUFACTURING QUALITY ENGINEER-C Marilyn Gordon MANUFACTURING QUALITY ENGINEER Work Phone: [facility] Work Phone: Start: 02-19-2022 End: 02-19-2022 Non-patient / Non-visit MANUFACTURING QUALITY ENGINEER-C Marilyn Gordon MANUFACTURING QUALITY ENGINEER Work Phone: [facility] Start: 02-15-2022 End: 02-15-2022 ambulatory MANUFACTURING QUALITY ENGINEER-C Marilyn Gordon MANUFACTURING QUALITY ENGINEER Work Phone: [facility] Work Phone: Start: 02-15-2022 End: 02-15-2022 Patient encounter procedure MANUFACTURING QUALITY ENGINEER-C Marilyn Gordon MANUFACTURING QUALITY ENGINEER Work Phone: [facility]-Laboratory Start: 02-13-2022 Non-patient / Non-visit MANUFACTURING QUALITY ENGINEER-C Hemal Gordon MANUFACTURING QUALITY ENGINEER Work Phone: [facility] Start: 01-27-2022 Non-patient / Non-visit MANUFACTURING QUALITY ENGINEER-C Hemal Gordon MANUFACTURING QUALITY ENGINEER Work Phone: [facility] Start: 01-23-2022 Non-patient / Non-visit MANUFACTURING QUALITY ENGINEER-C Hemal Gordon MANUFACTURING QUALITY ENGINEER Work Phone: [facility] Start: 01-23-2022 End: 01-23-2022 Patient encounter procedure MANUFACTURING QUALITY ENGINEER-C Marilyn Gordon MANUFACTURING QUALITY ENGINEER Work Phone: [facility] Start: 01-23-2022 Non-patient / Non-visit MANUFACTURING QUALITY ENGINEER-C Hemal Gordon MANUFACTURING QUALITY ENGINEER Work Phone: [facility] Start: 01-13-2022 End: 01-13-2022 Patient encounter procedure MANUFACTURING QUALITY ENGINEER-C Marilyn Gordon MANUFACTURING QUALITY ENGINEER Work Phone: [facility] Start: 11-08-2021 End: 11-08-2021 Patient encounter procedure MANUFACTURING QUALITY ENGINEER-C Marilyn Gordon MANUFACTURING QUALITY ENGINEER Work Phone: [facility] Start: 10-22-2021 End: 10-22-2021 Patient encounter procedure [facility] Start: 09-19-2021 End: 10-06-2021 Discharged [facility] Start: 08-29-2021 End: 08-29-2021 Patient encounter procedure [facility]Labor[facility], Specimen Start: 08-26-2021 End: 09-05-2021 Discharged [facility] Start: 08-26-2021 Registered [facility] Start: 08-15-2021 End: 09-05-2021 Discharged [facility] Start: 08-15-2021 Registered [facility]ring [facility] Start: 08-06-2021 End: 08-06-2021 Patient encounter procedure [facility] Start: 06-20-2021 End: 07-06-2021 Discharged [facility] Start: 04-22-2021 End: 05-06-2021 Discharged [facility] Start: 03-18-2021 End: 03-18-2021 Patient encounter procedure [facility] Start: 01-15-2017 End: 01-20-2017 Ambulatory MARILYN GORDON Facility:[facility] Procedures Date Procedure Procedure Detail Performing Clinician Start: 06-23-2023 CT of abdomen and pe lvis without contrast MANUFACTURING QUALITY ENGINEER-Emely Gordon MANUFACTURING QUALITY ENGINEER Work Phone: Start: 06-03-2022 MRI of brain with contrast MANUFACTURING QUALITY ENGINEER-Emely Gordon MANUFACTURING QUALITY ENGINEER Work Phone: Start: 02-15-2022 Plain chest X-ray MANUFACTURING QUALITY ENGINEER-Emely Gordon MANUFACTURING QUALITY ENGINEER Work Phone: Start: 01-23-2022 Radionuclide imaging of perfusion of myocardium under exercise stress MANUFACTURING QUALITY ENGINEER-Emely Gordon MANUFACTURING QUALITY ENGINEER Work Phone: Start: 06-20-2021 End: 06-20-2021 Viral antigen assay Start: 04-22-2021 SARS-CoV-2 Antigen (Rapid) Viral antigen assay Plan of Treatment Date Care Activity Detail Author Start: 06-23-2023 [facility] Catheterization of l eft heart [facility] Work Phone: Patient Education ED Flank Pain, Uncertain Cause ED Pulmonary Nodule, Solitary [facility] Work Phone: Patient referral [facility] Work Phone: [facility] Immunizations Immunization Date Immunization Notes Care Provider Duyen cool 12-24-2023 influenza, seasonal, injectable, preservative free Marilyn Gordon MANUFACTURING QUALITY ENGINEER-C Work Phone: [facility] 01-12-2023 influenza, injectabl e, quadrivalent, preservative free MANUFACTURING QUALITY ENGINEER-C Marilyn Lorson MANUFACTURING QUALITY ENGINEER Work Phone: [facility] 12-16-2021 influenza, injectabl e, quadrivalent, preservative free MANUFACTURING QUALITY ENGINEER-C Marilyn Lorson MANUFACTURING QUALITY ENGINEER Work Phone: [facility] 12-16-2021 influenza, seasonal, injectable MANUFACTURING QUALITY ENGINEER-C Marilyn Lorson MANUFACTURING QUALITY ENGINEER Work Phone: [facility] 12-20-2020 influenza, injectabl e, quadrivalent, preservative free MANUFACTURING QUALITY ENGINEER-C Marilyn Lorson MANUFACTURING QUALITY ENGINEER Work Phone: [facility] 12-20-2020 influenza, seasonal, injectable [facility] 04-17-2020 Covsc (Moderna) [facility] 03-20-2020 [facility] ([facility] 12-14-2019 influenza, injectabl e, quadrivalent, preservative free MANUFACTURING QUALITY ENGINEER-C Marilyn Lorson MANUFACTURING QUALITY ENGINEER Work Phone: [facility] 12-14-2019 influenza, seasonal, injectable [facility] 01-31-2019 influenza, injectabl e, quadrivalent, preservative free MANUFACTURING QUALITY ENGINEER-C Marilyn Lorson MANUFACTURING QUALITY ENGINEER Work Phone: [facility] 01-31-2019 influenza, seasonal, injectable [facility] 02-19-2015 influenza, injectabl e, quadrivalent, preservative free MANUFACTURING QUALITY ENGINEER-C Marilyn Lorson MANUFACTURING QUALITY ENGINEER Work Phone: [facility] 02-19-2015 influenza, seasonal, injectable [facility] 12-15-2013 influenza, injectabl e, quadrivalent, preservative free MANUFACTURING QUALITY ENGINEER-C Marilyn Lorson MANUFACTURING QUALITY ENGINEER Work Phone: [facility] 12-15-2013 influenza, seasonal, injectable [facility] 01-31-2013 Influenza virus vaccine [facility] Payers Date Payer Category Payer Self-pay [id number] 2023 [facility] [id number] 2017 Unknown [id number] Unknown [id number] Unknown [id number] Unknown [id number] Unknown [id number] [id number] Unknown [id number] [id number] Unknown [id number] Social History Date Type Detail Facility Start: 01-11-2021 End: 06-23-2023 Tobacco smoking status WIIS Unknown if ever smoked [facility] Start: 02-08-2019 Non-smoker [facility] Start: 1970 Sex Assigned At Male [facility] Start: 06-23-2023 Tobacco smoking stat us WIIS Never smoked tobacco (finding) [facility] Medical Equipment Procedure Code Equipment Code Equipment Origin al Text Equipment Identifier Dates TUBE,EAR T-TUBE FDA Start: 01-18-2019 TUBE,EAR T-TUBE FDA Start: 01-18-2019 TUBE,EAR T-TUBE FDA Start: 01-18-2019 TUBE,EAR T-TUBE FDA Start: 01-18-2019 TUBE,EAR T-TUBE FDA Start: 01-18-2019 TUBE,EAR T-TUBE FDA Start: 01-18-2019 TUBE,EAR T-TUBE FDA Start: 01-18-2019 TUBE,EAR T-TUBE FDA Start: 01-18-2019 TUBE,EAR T-TUBE FDA Start: 01-18-2019 TUBE,EAR T-TUBE FDA Start: 01-18-2019 TUBE,EAR T-TUBE FDA Start: 01-18-2019 TUBE,EAR T-TUBE FDA Start: 01-18-2019 TUBE,EAR T-TUBE FDA Start: 01-18-2019 TUBE,EAR T-TUBE FDA Start: 01-18-2019 TUBE,EAR T-TUBE FDA Start: 01-18-2019 TUBE,EAR T-TUBE FDA Start: 01-18-2019 TUBE,EAR T-TUBE FDA Start: 01-18-2019 TUBE,EAR T-TUBE FDA Start: 01-18-2019 TUBE,EAR T-TUBE FDA Start: 01-18-2019 TUBE,EAR T-TUBE FDA Start: 01-18-2019 Femoral vessel s uture implantation set [id number] FDA Start: 02-19-2022 TUBE,EAR T-TUBE FDA Start: 01-18-2019 TUBE,EAR T-TUBE FDA Start: 01-18-2019 TUBE,EAR T-TUBE FDA Start: 01-18-2019 TUBE,EAR T-TUBE FDA Start: 01-18-2019 TUBE,EAR T-TUBE FDA Start: 01-18-2019 TUBE,EAR T-TUBE FDA Start: 01-18-2019 TUBE,EAR T-TUBE FDA Start: 01-18-2019 TUBE,EAR T-TUBE FDA Start: 01-18-2019 TUBE,EAR T-TUBE FDA Start: 01-18-2019 TUBE,EAR T-TUBE FDA Start: 01-18-2019 TUBE,EAR T-TUBE FDA Start: 01-18-2019 TUBE,EAR T-TUBE FDA Start: 01-18-2019 TUBE,EAR T-TUBE FDA Start: 01-18-2019 TUBE,EAR T-TUBE FDA Start: 01-18-2019 TUBE,EAR T-TUBE FDA Start: 01-18-2019 TUBE,EAR T-TUBE FDA Start: 01-18-2019 Clinical Notes 03-09-2019 to 07-22-2024 Note Date & Type Note Facility 07-22-2024 Evaluation note Diagnosis Onset Date Resolution Acute upper respiratory infection acute July 22, 2024 7:58am Coronary artery disease chronic A ugust 2024 7:50am Hyperlipidemia chronic October 7:50am Hypertension chronic October 20, 2024 7:50am CORBIN treated with BiPAP chronic Au roderick 2024 7:50am [facility] Work Phone: 1(235) 535-736704-16-2024 Discharge summary Author Jere Zhu [facility] June 23, 2023 9:02pm Note Date/Time June 23, 2023 6:[address] [facility] Medical Records Department [address] [place] [address] Emergency Department Summary 06/23/23 MR#: [id number] Acct: [id number] Name: KAMALA BRASWELL Jr. Rep #:[id number] : 1970 52 From: Jere Zhu DO PCP: FRANCISCO Escalona Status:REG E R Location: ED HPI HPI - GI History of Present Illness Chief Complaint: Flank Pain Narrative Narrative: 51-year-old male presenting with left flank pain. He states has been present onand off for about a month now. Initially started after he stacked some firewoodand thought it was musculoskeletal. He describes aching burning pain in the left flank and the only this last for a couple of minutes and was worse with exertion and twisting his trunk. It is now been steady for about a week and a half. He had initial labs done when the symptoms started and they were normal. No history of kidney stones. He denies any hematuria or dysuria. He states he does void frequently because he does a lot of water he drinks about a gallon a day. Denies fevers, chills. Denies nausea or vomiting. Denies constipation ordiarrhea. [facility] Medical History Abnormal stress test Chest pain Chest tightness Chronic serous otitis media of both ears Coronary artery disease COVID-19 Deep inguinal pain, right Dyspnea Exacerbation of gout Family history of colon cancer in father GERD (gastroesophageal reflux disease) Hordeolum externum left lower eyelid Hyperlipidemia Hypertension Injury of right femoral artery Leg swelling Low back strain Morbid obesity CORBIN on CPAP CORBIN treated with BiPAP Prediabetes Radiculopathy, lumbar region Home Medications naproxen sodium 220 mg capsule (Aleve) 220 mg PO BID PRN Pain 05/14/20 [History Last Taken Unknown] multivitamin 1 tab PO DAILY 01/13/22 [History Last Taken Unknown] aspirin 81 mg tablet,delayed release (Adult Low Dose Aspirin) 81 mg PO DAILY 02/11/22 [History Last Taken 02/19/22] atorvastatin 40 mg tablet 40 mg PO QHS #90 tabs 02/14/22 [Rx Last Taken Unknown] amlodipine 5 mg tablet 5 mg PO DAILY #90 tabs 01/02/24 [Rx Last Taken Unknown] escitalopram oxalate 5 mg tablet 5 mg PO DAILY 04/22/23 [History Last Taken Unknown] losartan 100 mg tablet 100 mg PO DAILY #90 tabs 04/22/23 [Rx Last Taken Unknown] metformin 500 mg tablet 500 mg PO DAILY 04/22/23 [History Last Taken Unknown] nitroglycerin 0.4 mg sublingual tablet 0.4 mg sublingual Q5-15M PRN 04/22/23 [History Last Taken Unknown] naproxen 500 mg tablet (Naprosyn) 500 mg PO BID PRN pain #30 tabs 06/23/23 [Rx Last Taken Unknown] tizanidine 4 mg capsule 4 mg PO Q8H PRN muscle spasticity #20 caps 06/23/23 [Rx Last Taken Unknown] Allergy/AdvReac Type Severity Reaction Status Date / Time No Known Allergies Allergy Verified 06/23/23 17:17 Family History Father Colon cancer Mother Hypertension Thyroid disorder CVA (cerebral vascular accident) Myocardial infarction Surgical History History of placement of ear tubes (~01/18/19) Hx of left inguinal hernia repair Hx of tonsillectomy Social History Smoking Status: Never smoker second hand exposure: No alcohol intake: current details: 1x a month substance use type: does not use caffeine: Yes Type: coffee and tea Number of servings: 2 what type of physical activity do you participate in: none and other ROS ROS ED Constitutional Constitutional ED: Denies chills, fever(s) or sweats Eyes Eyes: Denies blurry vision or change in vision ENT ENT ED: Denies ear pain or sore throat Cardiovascular Cardiovascular: Denies chest pain, palpitations or racing heartbeat Respiratory/Chest Respiratory/Chest: Denies cough, dyspnea or sputum Gastrointestinal Gastrointestinal: Reports abdominal pain; Denies constipation, diarrhea, nausea or vomiting Genitourinary Genitourinary ED: Denies dysuria, hematuria or urinary frequency Musculoskeletal Musculoskeletal: Denies arthralgias, myalgias or neck pain Integumentary Denies abscess, Abrasions or rash Neurologic Neurologic: Denies headache(s), paresthesias or weakness Psychiatric Psychiatric: Denies anxiety, depression, suicidal ideation or suicidal thoughts Endocrine Endocrinology: Denies polydipsia or polyuria EXAM Physical Exam Const Vital Signs: 06/23/23 17:17 06/23/23 19:27 Temperature 96.3 F L 97.6 F L Temperature Source Temporal Temporal Pulse Rate 74 63 Respiratory Rate 18 16 Blood Pressure 197/104 H 153/96 H Blood Pressure Mean 135 115 Pulse Ox 97 97 Oxygen Delivery Method Room Air Room Air Positive well nourished General Appearance ED: Negative for pallor HEENT normocephalic Eyes PERRL and EOMs intact bilaterally Resp normal respiratory effort Cardio regular rate and regular rhythm GI GI Narrative: Tenderness palpation left flank. No CVA tenderness. No rashes. No midline thoracic or lumbar spinal tenderness. Palpation: tender Neuro CN's II-XII intact bilaterally and moves all extremities Sensorium / Orientation: alert Motor Exam: strength 5/5 throughout Psych mental status grossly normal Skin no wounds General Skin Exam: Negative for jaundice or pallor MDM MDM MDM Narrative Medical decision making narrative: Patient presenting with left flank pain. He thought it was musculoskeletal but it has been pretty persistent. He has no other symptoms associated with it. Differential includes lumbar strain, kidney stone, UTI, pyelonephritis. Patientmedicated morphine, Zofran, Toradol. Urinalysis will be obtained to rule out UTI versus occult blood. CT of the abdomen pelvis without contrast will be obtained to rule out kidney stone. Urinalysis negative for infection. Patient said he recently had lab work and this was reviewed. CT of the abdomen pelvis without contrast was obtained which does not show any acute abdominal pathology. There are some hepatomegaly and there is a lung nodule which we discussed. He will need follow-up for this. He is not symptomatic from it. Patient will put on muscle relaxers and NSAIDs for home. These were filled via meds to beds. Heis given a work note. Impression: 1. Left flank pain 2. Lung nodule Lab Data Labs: Laboratory Results - last 24 hr 06/23/23 17:46 Urine Color Yellow Urine Clarity Clear Urine pH 7.0 Ur Specific [place] 1.005 Urine Protein Negative Urine Glucose (UA) Normal Urine Ketones Negative Urine Occult Blood Negative Urine Nitrite Negative Urine Bilirubin Negative Urine Urobilinogen Normal Ur Leukocyte Esterase Negative Urine RBC 0 SEEN Urine WBC 0 SEEN Ur Squamous Epith Cells 0 SEEN Urine Bacteria 0 SEEN Urine Mucus 0 SEEN Radiography Diagnostic Testing: Clinical Impression(s) from Imaging Studies Abdomen/Pelvis CT 06/23/23 17:57 IMPRESSION: Colonic diverticulosis. No obstruction. Hepatomegaly. No biliary dilatation. Small right lung base nodule. Recommend dedicated exam of the chest and follow-up according to Fleischner Society guidelines. Electronically Signed: Angel Luis Johnson MD at 20:10 EDT Reading Location ID and State: [facility] / [place] , Service support , Discharge Plan Triage Chief Complaint: Flank Pain ED Provider: Jere Zhu Dx/Rx/DC Orders Instructions: ED Flank Pain, Uncertain Cause, ED Pulmonary Nodule, Solitary Prescriptions: New tizanidine 4 mg capsule 4 mg PO Q8H PRN (Reason: muscle spasticity) Qty: 20 0RF naproxen [Naprosyn] 500 mg tablet 500 mg PO BID PRN (Reason: pain) Qty: 30 0RF No Action naproxen sodium [Aleve] 220 mg capsule 220 mg PO BID PRN (Reason: Pain) multivitamin Tablet 1 tab PO DAILY metformin 500 mg tablet 500 mg PO DAILY Patient Comments: TAKE 1 TABLET BY MOUTH 24TIMES A DAY nitroglycerin 0.4 mg tablet, sublingual 0.4 mg sublingual Q5-15M PRN Patient Comments: TAKE 1 TABLET [id number] EVERY 5 MINUTES NEEDED FOR CHEST PAIN escitalopram oxalate 5 mg tablet 5 mg PO DAILY Patient Comments: TAKE 1 TABLET BY MOUTHCONCE DAILY losartan 100 mg tablet 100 mg PO DAILY Qty: 90 3RF aspirin [Adult Low Dose Aspirin] 81 mg tablet,delayed release (DR/EC) 81 mg PO DAILY atorvastatin 40 mg tablet 40 mg PO QHS Qty: 90 3RF amlodipine 5 mg tablet 5 mg PO DAILY Qty: 90 3RF Primary Care Provider: Marilyn Gordon NP Referrals: Marilyn Gordon NP, MANUFACTURING QUALITY ENGINEER-C [Primary Care Provider] - Disposition Disposition: Home, Self Care What to do if you have Problems For any increased pain, shortness of breath, bleeding, nausea or vomiting, chestpain, or any unexpected problems, contact your Primary Care Provider. Call [facility] ([phone]) or report to the closest Emergency Room. Call 911 if necessary. 06/23/232101 <Electronically signed by Jere Zhu DO> Cosigner Signature (if applicable): CC: FRANCISCO Gordon ~ Signed [facility] Work Phone: 1(720) 864-602301-01-2020 Chief complaint+Reason for visit Narrative * Chief Complaint COVID-19/[facility] EM[facility] E LAST SEEN 03/2019 NN PT CHEST TIGHTNESS CHEST TIGHTNESS CHEST PAIN/ABNORMAL STRESS TST EORDER- LABS AND XRAY Reason for Visit Chest pain Hyperlipidemia [facility] Work Phone: 1(796) 787-188401-01-2020 Chief complaint+Reason for visit Narrative * Chief Complaint COVID-19/[facility] EM[facility] E LAST SEEN 03/2019 NN PT CHEST TIGHTNESS CHEST TIGHTNESS CHEST PAIN/ABNORMAL STRESS TST EORDER- LABS AND XRAY CHEST PAIN/ABNORMAL STRESS TST Reason for Visit Chest pain Hyperlipidemia [facility] Work Phone: Evaluation noteNo assessment information available [facility] Work Phone: Evaluation note* Diagnosis Onset Date Resolution Status Chest pain acute Hyperlipidemia chronic Hypertension [facility] Work Phone: Evaluation note* Diagnosis Onset Date Resolution Status Chest pain chronic Hyperlipidemia chronic Hypertension [facility] Work Phone: Evaluation note* Diagnosis Onset Date Resolution Status Chest pain chronic Hyperlipidemia chronic Hypertension chronic Exacerbation of gout acute [facility] Work Phone: Evaluation note* Diagnosis Onset Date Resolution Status Chest tightness chronic Coronary artery disease 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 office equipment 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 paula Hyperlipidemia chronic Hypertension chronic CORBIN treated with BiPAP chron [facility] Work Phone: Evaluation note* Diagnosis Onset Date Resolution Status Hordeolum externum left lower eyelid acute Coronary artery disease 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 office equipment engineer paula Hyperlipidemia chronic Hypertension chronic Morbid obesity chronic CORBIN treated with BiPAP chron [facility] Work Phone: Reason for referral (narrative)No reason for [facility] Summary Purpose Family History Relationship Condition Age at Onset Recorded Date/T dona father Malignant neoplasm of colon Unknown mother Hypertension Unknown Disorder of thyroid Unknown Cerebrovascular accident (CVA) Unknown Myocardial infarction Unknown Advance Directives Advance Directive Response Recorded Date/ Time Advance Directives No February 08, 2019 8:58am Living Will No February 08 8:58am Power of Neck Band Operator No February 08, 2019 8:58am Advance Directive Response Recorded Date/ Time Advance Directives No February 08, 2019 7:58am Living Will No February 08 7:58am Power of Neck Band Operator No February 08, 2019 7:58am Advance Directive Response Recorded Date/ Time Advance Directives No February 7:35am Living Will No February 18, 022 7:35am Power of Neck Band Operator No February 18, 2022 7:35am Advance Directive Response Recorded Date/ Time Advance Directives No February 8:35am Living Will No February 18 8:35am Power of Neck Band Operator No February 18, 2022 8:35am Advance Directive Response Recorded Date/ Time Advance Directives No February 8:35am Living Will No June 23, 2023 6:27pm Power of Neck Band Operator No June 22 6:27pm Advance Directive Response Recorded Date/ Time Advance Directives No February 8:35am Chief Complaint and Reason for Visit Chief Complaint CHEST TIGHTNESS CHEST TIGHTNESS CHEST PAIN/ABNORMAL STRESS TST EORDER- LABS AND XRAY CHEST PAIN/ABNORMAL STRESS TST CHEST PAIN/ABNORMAL STRESS TST 1 M FU PSEUDO Reason for Visit Chest pain Hyperlipidemia Hypertension Chief Complaint CHEST PAIN/ABNORMAL STRESS TST EORDER- LABS AND XRAY CHEST PAIN/ABNORMAL STRESS TST CHEST PAIN/ABNORMAL STRESS TST 1 M FU PSEUDO CONCERN FOR GOUT NUMBESS ARM/FACE/TONGUE Reason for Visit Chest pain Hyperlipidemia Hypertension Exacerbation of gout Chief Complaint NUMBESS ARM/FACE/TON PIPE 6 M FU(Prev NN) Reason for Visit Chest tightness Coronary artery disease Hyperlipidemia Hypertension CORBIN treated with BiPAP Chief Complaint LEFT EYE IRRITATION 7 M FU Reason for Visit Hordeolum externum l eft lower eyelid Coronary artery disease Hyperlipidemia Hypertension Morbid obesity CORBIN treated with BiPAP Chief Complaint LEFT EYE IRRITATION 7 M FU flank pain Reason for Visit Hordeolum externum l eft lower eyelid Coronary artery disease Hyperlipidemia Hypertension Morbid obesity CORBIN treated with BiPAP Chief Complaint Admit Date 2 ORDERING AKILAH July 14, 2024 7:14am Chief Complaint Admit Date 2 ORDERING AKILAH July 14, 2024 7:14am COUGH, FEVER LAST NIGHT, SORE THROAT July 22, 2024 7:58am EMPLOYEE [facility]/ [facility] July 22, 2024 8:09a m Chief Complaint Admit Date 2 ORDERING AKILAH July 14, 2024 7:14am COUGH, FEVER LAST NIGHT, SORE THROAT July 22, 2024 7:58am EMPLOYEE COVID/ [facility] July 22, 2024 8:09a m 1 Y FU October 20, 2024 7: 50am Reason for Visit Admit Date Acute upper respiratory infection July 222024 7:58am Coronary artery disease October 20 7:50am Hyperlipidemia October 20, 2024 7: 50am Hypertension October 20, 2024 7: 50am CORBIN treated with BiPAP October 20, 2024 7:50am Additional Source Comments (unrecognized sect ion and content) No Status Records FoundNo Status Records Found INFORMATION SOURCE (unrecogn ized section and content) DATE CREATED AUTHOR 09/01/2017 [facility] ([place]) DATE CREATED AUTHOR AUTHOR'S ORGANIZ ATION [facility] Goals (unrecognized section and content) Goals may be documented in a n alternate sectionGoals may be documented in an alternate sectionGoals may be documented in an alternate sectionGoals may be documented in an alternate sectionGoals may be documented in an alternate sectionGoals may be documented in an alternate sectionGoals may be documented in an alternate sectionGoals may be documented in an alternate sectionGoals may be documented in an alternate sectionGoals may be documented in an alternate sectionGoals may be documented in an alternate sectionGoals may be documented in an alternate sectionGoals may be documented in an alternate sectionGoals may be documented in an alternate sectionGoals may be documented in an alternate sectionGoals may be documented in an alternate sectionGoals may be documented in an alternate sectionGoals may be documented in an alternate section Care Teams (unrecognized sec tion and content) Team Status: Active Member Role Status Dates Marilyn Gordon MANUFACTURING QUALITY ENGINEER, MANUFACTURING QUALITY ENGINEER-C Family Provider Active Marilyn Gordon MANUFACTURING QUALITY ENGINEER, MANUFACTURING QUALITY ENGINEER-C Primary Care Provider Active Team Status: Inactive Member Role Status Dates Marilyn Gordon MANUFACTURING QUALITY ENGINEER, MANUFACTURING QUALITY ENGINEER-C Primary Care Provider, Referri Provider Active Evelio Foss MANUFACTURING QUALITY ENGINEER, MANUFACTURING QUALITY ENGINEER-C Attending Provider Active Team Status: Active Member Role Status Dates Marilyn Gordon MANUFACTURING QUALITY ENGINEER, MANUFACTURING QUALITY ENGINEER-C Primary Care Provider Active Dr. Neftali Asencio MD Attending Provider Active Evelio Foss MANUFACTURING QUALITY ENGINEER, MANUFACTURING QUALITY ENGINEER-C Referring Provider Active Team Status: Active Member Role Status Dates Marilyn Gordon MANUFACTURING QUALITY ENGINEER, MANUFACTURING QUALITY ENGINEER-C Primary Care Provider Active Evelio Foss MANUFACTURING QUALITY ENGINEER, MANUFACTURING QUALITY ENGINEER-C Other Provider Active Dr. Dixie Arita MD Attending Provider Activ e Team Status: Active Member Role Status Dates Marilyn Gordon MANUFACTURING QUALITY ENGINEER, MANUFACTURING QUALITY ENGINEER-C Primary Care Provider Active Dr. iDxie Arita MD Other Provider Active Evelio Foss MANUFACTURING QUALITY ENGINEER, MANUFACTURING QUALITY ENGINEER-C Attending Provider Active Team Status: Active Member Role Status Dates Marilyn Gordon MANUFACTURING QUALITY ENGINEER, MANUFACTURING QUALITY ENGINEER-C Primary Care Provider Active Dr. Dixie Arita MD Attending Provider Activ e Evelio Foss MANUFACTURING QUALITY ENGINEER, MANUFACTURING QUALITY ENGINEER-C Referring Provider Active Team Status: Active Member Role Status Dates Marilyn Gordon MANUFACTURING QUALITY ENGINEER, MANUFACTURING QUALITY ENGINEER-C Primary Care Provider Active Dr. Dixie Arita MD Attending Provider, Refe rring Provider Active Team Status: Active Member Role Status Dates Marilyn Gordon MANUFACTURING QUALITY ENGINEER, MANUFACTURING QUALITY ENGINEER-C Primary Care Provider Active Dr. Neftali Asencio MD Attending Provider Active Team Status: Inactive Member Role Status Dates Marilyn Gordon MANUFACTURING QUALITY ENGINEER, MANUFACTURING QUALITY ENGINEER-C Primary Care Provider Active Evelio Foss MANUFACTURING QUALITY ENGINEER, MANUFACTURING QUALITY ENGINEER-C Attending Provider Active Team Status: Inactive Member Role Status Dates Marilyn Gordon MANUFACTURING QUALITY ENGINEER, MANUFACTURING QUALITY ENGINEER-C Primary Care Provider Active Dr. Dixie Arita MD Attending Provider, Refe rring Provider Active Team Status: Inactive Member Role Status Dates Marilyn Gordon MANUFACTURING QUALITY ENGINEER, MANUFACTURING QUALITY ENGINEER-C Primary Care Provider Active Evelio Foss MANUFACTURING QUALITY ENGINEER, MANUFACTURING QUALITY ENGINEER-C Attending Provider, Referring Pro vider Active Team Status: Inactive Member Role Status Dates Marilyn Gordon MANUFACTURING QUALITY ENGINEER, MANUFACTURING QUALITY ENGINEER-C Primary Care Provider Active Dr. Dixie Arita MD Attending Provider Activ e Team Status: Inactive Member Role Status Dates Marilyn Gordon MANUFACTURING QUALITY ENGINEER, MANUFACTURING QUALITY ENGINEER-C Primary Care Pro vider, Attending Provider, Referring Provider Active Team Status: Active Member Role Status Dates Marilyn Gordon MANUFACTURING QUALITY ENGINEER, MANUFACTURING QUALITY ENGINEER-C Primary Care Provider Active Dr. Neftali Asencio MD Attending Provider Active Dr. Dixie Arita MD Referring Provider Activ e Team Status: Inactive Member Role Status Dates Marilyn Gordon MANUFACTURING QUALITY ENGINEER, MANUFACTURING QUALITY ENGINEER-C Primary Care Provider, Referri ng Provider Active Robert Monroy PA, PA Attending Provider Active Team Status: Inactive Member Role Status Dates Marilyn Gordon MANUFACTURING QUALITY ENGINEER, MANUFACTURING QUALITY ENGINEER-C Primary Care Provider, Referri ng Provider Active Dr. Mt Varela MD Attending Provider Active Team Status: Inactive Member Role Status Dates Marilyn Gordon MANUFACTURING QUALITY ENGINEER, MANUFACTURING QUALITY ENGINEER-C Primary Care Provider, Attendi ng Provider Active Dr. Mt Varela MD Referring Provider Active Team Status: Inactive Member Role Status Dates Marilyn Gordon MANUFACTURING QUALITY ENGINEER, MANUFACTURING QUALITY ENGINEER-C Primary Care Provider Active Dr. Jere Zhu DO Emergency Provider Active Team Status: Inactive Member Role Status Dates Marilyn Gordon MANUFACTURING QUALITY ENGINEER, MANUFACTURING QUALITY ENGINEER-C Primary Care Provider Active Start: July 14, 2024 End: July 14, 2024 Dr. Ruben Marie MD Attending Provider Active Start: July 14, 2024 End: July 14, 2024 Dr. Ruben Marie MD Referring Provider Active Start: July 14, 2024 End: July 14, 2024 Lyla Ladd PA, PA Other Provider Active Start: July 14, 2024 End: July 14, 2024 Team Status: Active Member Role Status Dates Marilyn Gordon MANUFACTURING QUALITY ENGINEER, MANUFACTURING QUALITY ENGINEER-C Primary Care Provider Active Start: July 22, 2024 Marilyn Gordon MANUFACTURING QUALITY ENGINEER, MANUFACTURING QUALITY ENGINEER-C Referring Provider Active Start: July 22, 2024 Sylvain SEVILLA, PA Attending Provider Active Sta rt: July 22, 2024 Team Status: Inactive Member Role Status Dates Marilyn Gordon MANUFACTURING QUALITY ENGINEER, MANUFACTURING QUALITY ENGINEER-C Primary Care Provider Active Start: July 22, 2024 End: July 22, 2024 Marilyn Gordon MANUFACTURING QUALITY ENGINEER, MANUFACTURING QUALITY ENGINEER-C Referring Provider Active Start: July 22, 2024 End: July 22, 2024 ySlvain Adler PA, PA Attending Provider Active Sta rt: July 22, 2024 End: July 22, 2024 Team Status: Active Member Role/Relationship Status Dates Marilyn Gordon MANUFACTURING QUALITY ENGINEER, MANUFACTURING QUALITY ENGINEER-C Family Provider Active Marilyn Gordon MANUFACTURING QUALITY ENGINEER, MANUFACTURING QUALITY ENGINEER-C Primary Care Provider Active Team Status: Inactive Member Role/Relationship Status Dates aMrilyn Gordon MANUFACTURING QUALITY ENGINEER, MANUFACTURING QUALITY ENGINEER-C Primary Care Provider Active Start: July 14, 2024 End: July 14, 2024 Dr. Ruben Marie MD Attending Provider Active Start: July 14, 2024 End: July 14, 2024 Dr. Ruben Marie MD Referring Provider Active Start: July 14, 2024 End: July 14, 2024 Lyla SEVILLA, PA Other Provider Active Start: July 14, 2024 End: July 14, 2024 Team Status: Inactive Member Role/Relationship Status Dates Marilyn Gordon NP, MANUFACTURING QUALITY ENGINEER-C Primary Care Provider Active Start: July 22, 2024 End: July 22, 2024 Marilyn Gordon NP, MANUFACTURING QUALITY ENGINEER-C Referring Provider Active Start: July 22, 2024 End: July 22, 2024 Sylvain SEVILLA PA Attending Provider Active Sta rt: July 22, 2024 End: July 22, 2024 Team Status: Inactive Member Role/Relationship Status Dates Marilyn Gordon NP, MANUFACTURING QUALITY ENGINEER-C Primary Care Provider Active Start: July 22, 2024 End: July 22, 2024 Marilyn Gordon NP, MANUFACTURING QUALITY ENGINEER-C Referring Provider Active Start: July 22, 2024 End: July 22, 2024 Sylvain SEVILLA PA Attending Provider Active Sta rt: July 22, 2024 End: July 22, 2024 Team Status: Inactive Member Role/Relationship Status Dates Marilyn Gordon MANUFACTURING QUALITY ENGINEER, MANUFACTURING QUALITY ENGINEER-C Primary Care Provider Active Start: October 20, 2024 End: October 20, 2024 Marilyn Gordon NP, MANUFACTURING QUALITY ENGINEER-C Referring Provider Active Start: October 20, 2024 End: October 20, 2024 Radha Mello NP, MANUFACTURING QUALITY ENGINEER-C Attending Provider Active Start: October 20, 2024 End: October 20, 2024 FOR RECORDS PERTAINING TO PATIENTS WHO ARE [...] BE BASED ON THE PRIMARY CLINICAL RECORDS. [facility]. provides no warranty or guarantee of the accuracy or completeness of information in this document.
[2024-10-21 07:51] LABS: Hepatitis C Antibody Nonreactive (Nonreactive); PSA,Total - Annual Screen 0.74 ng/mL (0.02-4.00)
== END | disposition home or self-care (01) ==
LOC: LAB 06:41
PROVIDERS: PCP Nurse Practitioner Family; Referring Provider Nurse Practitioner Family; Visit Provider Nurse Practitioner Family
DX: R73.01 Impaired fasting glucose (principal); Z11.59 Encounter for screening for other viral diseases; Z13.1 Encounter for screening for diabetes mellitus; E78.5 Hyperlipidemia, unspecified; Z12.5 Encounter for screening for malignant neoplasm of prostate
CPT/HCPCS: 36415; 83036; 84153; 86803; G0103

== ENCOUNTER → 2024-11-16 | Outpatient (CLI) | payer OTHER, SELFPAY ==
--- OUTSIDE RECORDS SUMMARY | 2024-11-16 07:43 | XMS RPT_ITS | CCD ---
Author Organization [facility] CliniSyn[facility] Care Team Providers Care Asphalt Roller Operator Name Role Phone MARILYN GORDON Unavailable Unavailable MARILYN GORDON Unavailable Unavailable Shaheed RAIL DETECTOR CAR OPERATOR, RAIL DETECTOR CAR OPERATOR-C Marilyn Primary Care Provider Shaheed RAIL DETECTOR CAR OPERATOR, RAIL DETECTOR CAR OPERATOR-C Marilyn Referring Provider [phone] DI Rodriguez Attending Provider Roof RAIL DETECTOR CAR OPERATOR, RAIL DETECTOR CAR OPERATOR-C Evelio Elder Attending Provider Dr. Neftali Asencio Attending Provider Roof RAIL DETECTOR CAR OPERATOR, RAIL DETECTOR CAR OPERATOR-C Evelio Elder Referring Provider Roof RAIL DETECTOR CAR OPERATOR, RAIL DETECTOR CAR OPERATOR-C Evelio Elder Other Provider [phone] Dr. Dixie Arita Attending Provider Dr. Dixie Arita Other Provider Shaheed RAIL DETECTOR CAR OPERATOR, RAIL DETECTOR CAR OPERATOR-C Marilyn Primary Care Provider [phone] Dr. Dixie Arita Attending Provider [phone] Roof RAIL DETECTOR CAR OPERATOR, RAIL DETECTOR CAR OPERATOR-C Evelio Elder Referring Provider Roof RAIL DETECTOR CAR OPERATOR, RAIL DETECTOR CAR OPERATOR-C Evelio Elder Attending Provider Dr. Dixie Arita Referring Provider [phone] Pricilason RAIL DETECTOR CAR OPERATOR, RAIL DETECTOR CAR OPERATOR-Emely Sanders Referring Provider [phone] Shaheed RAIL DETECTOR CAR OPERATOR, RAIL DETECTOR CAR OPERATOR-C Marilyn Primary Care Provider Dr. Dixie Arita Other Provider Roof RAIL DETECTOR CAR OPERATOR, RAIL DETECTOR CAR OPERATOR-C Evelio Elder Attending Provider Dr. Dixie Arita Attending Provider Dr. Dixie Arita Referring Provider [place]orson RAIL DETECTOR CAR OPERATOR, RAIL DETECTOR CAR OPERATOR-C Wheelwright Referring Provider [phone] Dr. Neftali Asencio Attending Provider [phone] DI Mitchell Attending Provider [place] RAIL DETECTOR CAR OPERATOR, RAIL DETECTOR CAR OPERATOR-C Wheelwright Primary Care Provider [place] RAIL DETECTOR CAR OPERATOR, RAIL DETECTOR CAR OPERATOR-C Wheelwright Referring Provider [phone] Dr. [place] Attending Provider [phone] [place] RAIL DETECTOR CAR OPERATOR, RAIL DETECTOR CAR OPERATOR-C Wheelwright Primary Care Provider [phone] [place]on RAIL DETECTOR CAR OPERATOR, RAIL DETECTOR CAR OPERATOR-C Wheelwright Referring Provider [phone] DI Mitchell Attending Provider Dr. [place] Attending Provider [phone] [place] RAIL DETECTOR CAR OPERATOR, RAIL DETECTOR CAR OPERATOR-C [facility] Provider [phone] [place]on RAIL DETECTOR CAR OPERATOR, RAIL DETECTOR CAR OPERATOR-C Wheelwright Referring Provider [phone] DI Mitchell Attending Provider Dr. [place] Attending Provider [phone] [place] RAIL DETECTOR CAR OPERATOR-C, [facility] Provider [phone] Dr. Ruben Marie MD Attending Provider Dr. Ruben Marie MD Referring Provider Lyla Camacho Other Provider [phone] Pricilason RAIL DETECTOR CAR OPERATOR-C, Marilyn Referring Provider [phone] Sylvain Rodriguez Attending Provider Riaz POPE-CRadha Attending Provider [phone] Pricilason RAIL DETECTOR CAR OPERATOR-C, Marilyn Attending Provider [phone] Assessment, Health Risk Attending Provider Unava ilable Assessment, Health Risk Referring Provider Unava ilable Sylvain Rodriguez Attending Unavailable [place] RAIL DETECTOR CAR OPERATOR, [facility] Unavailable [place] RAIL DETECTOR CAR OPERATOR, Marilyn Referring Unavailable Assessment, Health Risk Attending Unavaila ble Assessment, Health Risk Referring Unavaila ble [place] RAIL DETECTOR CAR OPERATOR, [facility] Unavailable Sylvain Rodriguez Attending Unavailable [place] RAIL DETECTOR CAR OPERATORMarilyn Primary Care Unavailable Shaheed RAIL DETECTOR CAR OPERATOR, Marilyn Referring Unavailable Shaheed RAIL DETECTOR CAR OPERATOR, Marilyn Primary Care Unavailable Riaz POPE, Radha Attending Unavailable Marilyn Gordon NP Referring Unavailable Shaheed RAIL DETECTOR CAR OPERATOR, Marilyn Primary Care Unavailable Shaheed RAIL DETECTOR CAR OPERATOR, Marilyn Attending Unavailable Shaheed RAIL DETECTOR CAR OPERATOR, Marilyn Referring Unavailable Ruben Marie Attending Unavailable Ruben Marie Referring Unavailable Lyla Camacho Consulting Unavail able Shaheed POPE, Marilyn Primary Care Unavailable Medications Current Medications Medication Drug Class(es) Dates [...] 2019 12:36pm atorvastatin 40 mg oral tablet (12 sources) HMG-CoA Reductase Inhibitor Start: 02-14-2022 take [...] tablet Discontinued 50 mg PO DAILY 90 March 06, 2022 1:03pm April 22, 2023 [...] 2020 7:40am tiZANidine 4 mg oral capsule (6 sources) Central alpha-2 Adrenergic Agonist Start: 06-23-2023 take 1 capsule by mouth every eight hours as needed Tizanidine 4 mg capsule Active 4 mg PO Q8H as needed for muscle spasticity 20 0 June 23, 2023 12:00am Completed/Discontinued Medications Medication Drug Class(es) Dates Sig (Normalized) Sig (Original) acetaminophen 325 mg / HYDROcodone bitartrate 5 mg oral tablet (19 sources) Opioid Agonist Start: 04-29-2018 End: 05-02-2018 [...] tablet Discontinued 5 mg PO DAILY 90 March 16, 2024 3:27pm June 17, 2024 3:38pm apixaban 5 mg oral tablet (20 sources) Factor Xa Inhibitor Start: 02-14-2019 End: 05-14-2020 take 1 tablet by mouth twice daily Apixaban 5 mg tablet Discontinued 5 mg PO TWICE A DAY 60 February 14, 2019 12:32pm May 14, 2020 7:40am benzonatate 100 mg oral capsule (2 sources) Non-narcotic Antitussive Start: 07-22-2024 End: 10-20-2024 take 2 capsules by mouth three times daily as needed for cough Benzonatate 100 mg capsule Discontinued 200 mg PO THREE TIMES A DAY as needed for cough 30 July 22, 2024 12:00am October 20, 2024 7:55am cephalexin 500 mg oral capsule (19 sources) Cephalosporin Antibacterial Start: 07-19-2019 End: 05-14-2020 take 1 capsule by mouth every eight hours Cephalexin 500 MG capsule Discontinued 500 mg PO EVERY 8 HOURS 21 July 19, 2019 12:00am May 14, 2020 7:40am cyclobenzaprine hydrochloride 5 mg oral tablet (19 sources) Muscle Relaxant Start: 04-30-2018 End: 12-09-2018 take 1 tablet by mouth three times daily as needed for muscle spasms Cyclobenzaprine 5 mg tablet Discontinued 5 mg PO THREE TIMES A DAY as needed for muscle spasm April 30, 2018 1:00am December 09, 2018 7:42am Radiculopathy, lumbar region 0.5 ml dulaglutide 1.5 mg/ml auto-injector (12 sources) GLP-1 Receptor Agonist Start: 02-14-2022 End: 09-19-2022 Dulaglutide (Trulicity) 0.75 mg/0.5 mL pen injector Discontinued 0.75 mg SC EVERY WEEK 2 0 February 14, 2022 1:00am September 19, 2022 8:52am escitalopram 5 mg oral tablet (7 sources) Serotonin Reuptake Inhibitor Start: 04-22-2023 End: 10-23-2023 take 1 tablet by mouth once daily Escitalopram Oxalate 5 mg tablet Discontinued 5 mg PO DAILY April 22, 2023 1:00am October 23, 2023 8:23am Ipratropium [place] 21 mcg (0.03 %) spray,non-aerosol (2 sources) Start: 07-22-2024 End: 10-20-2024 Ipratropium [place] 21 mcg (0.03 %) spray,non-aerosol Discontinued 2 NMA INTRANASAL 2 to 3 times per day as needed for postnasal drainage 30 July 22, 2024 12:00am October 20, 2024 7:55am administer into each nostril lisinopril 10 mg oral tablet (20 sources) Angiotensin Converting Enzyme Inhibitor Start: 02-01-2019 End: 01-13-2022 take 1 tablet by mouth at bedtime Lisinopril 10 mg tablet Discontinued 10 mg PO AT BEDTIME 90 March 11, 2021 1:50pm January 13, 2022 4:11pm metFORMIN hydrochloride 500 mg oral tablet (7 sources) Biguanide Start: 04-22-2023 End: 10-23-2023 take 1 tablet by mouth once daily Metformin 500 mg tablet Discontinued 500 mg PO DAILY April 22, 2023 1:00am October 23, 2023 8:22am Methylprednisolone (19 sources) Corticosteroid Start: 05-14-2020 End: 10-09-2020 Methylprednisolone [...] 6:54am PO PER PKG DIR Multivitamin tablet (10 sources) Start: 01-13-2022 End: 10-20-2024 Multivitamin tablet [...] TWICE A DAY as needed for pain 30 0 June 23, 2023 12:00am October 20, 2024 7:55am Start: 05-14-2020 take 1 capsule by [facility] twice daily as needed for pain Naproxen [...] 7:40am phentermine hydrochloride 30 mg oral capsule (19 sources) Sympathomimetic Amine Anorectic Start: 05-14-2020 End: [...] ontinued 10 mg PO daily 30 12 October 09, 2020 12:00am October 20, 2020 12:00am October 21, 2020 12:01am Unspecified contact dermatitis, unspecified cause Take 4 tabs once daily days 1-3 3 tabs once daily days 4-6 2 tabs once daily days 7-9 and 1 tab once daily days 10-12. Problems Active Problems Problem Classification Problem Date Documented Da te Episodic/Chronic Abdominal pain (10 sources) Right inguinal pain; Translations: [Right lower quadrant pain] 04-25-2022 Episodic Coronary atherosclerosis and other heart disease (13 sources) Coronary arteriosclerosis; Translations: [Atherosclerotic heart disease of [place] coronary artery without angina pectoris] 09-19-2022 Chronic Crushing injury or internal injury (10 sources) Unspecified injury of femoral artery, right leg, initial encounter; Translations: [Injury of right femoral artery] 04-25-2022 Episodic Diabetes mellitus without complication (6 sources) Prediabetes; Translations: [Prediabetes] Onset: 10-28-2024 10-23-2023 Episodic Disorders of lipid metabolism (20 sources) Mixed hyperlipidemia; Translations: [Hyperlipidemia] Onset: 01-15-2017 Chronic Essential hypertension (20 sources) Hypertensive disorder; Translations: [Essential (primary) hypertension] Chronic Gout and other crystal arthropathies (10 sources) Gout; Translations: [Gout, unspecified] 05-19-2022 Chronic Inflammation; infection of eye (except that caused by tuberculosis or sexually transmitteddisease) (9 sources) Hordeolum externum of left lower eyelid; Translations: [Hordeolum externum left lower eyelid] 03-24-2023 Episodic Nonspecific chest pain (20 sources) Chest pain; Translations: [Chest pain, unspecified] Episodic Other connective tissue disease (19 sources) Achilles tendinitis; Translations: [Achilles tendinitis, unspecified leg] 10-09-2020 Episodic Other connective tissue disease (19 sources) Swelling of lower limb; Translations: [Other specified soft tissue disorders] 02-01-2019 Episodic Other liver diseases (1 source) Fatty (change of) liver, not elsewhere classified; Translations: [Fatty (change of) liver, not elsewhere classified] Onset: 07-19-2024 Chronic Other lower respiratory disease (19 sources) Dyspnea; Translations: [Dyspnea, unspecified] 02-07-2019 Episodic Other nutritional; endocrine; and metabolic disorders (8 sources) Morbid obesity; Translations: [Morbid (severe) obesity due to excess calories] 09-19-2022 Chronic Other nutritional; endocrine; and metabolic disorders (2 sources) Morbid (severe) obesity due to excess calories; Translations: [Morbid obesity] 04-22-2023 Chronic Other screening for suspected conditions (not mental disorders or infectious disease) (19 sources) Cardiovascular stress test abnormal; Translations: [Abnormal result of other cardiovascular function study] 02-01-2019 Episodic Other upper respiratory infections (4 sources) Acute upper respiratory infection; Translations: [Acute upper respiratory infection, unspecified] 07-22-2024 Episodic Otitis media and related conditions (19 sources) Bilateral chronic serous otitis; Translations: [Chronic serous otitis media, bilateral] 01-18-2019 Chronic Residual codes; unclassified (20 sources) Obstructive sleep apnea syndrome; Translations: [Obstructive sleep apnea (adult) (pediatric)] 01-13-2022 Chronic Residual codes; unclassified (3 sources) Obstructive sleep apnea (adult) (pediatric); Translations: [Obstructive sleep apnea (adult)(pediatric)] 09-19-2022 Chronic Spondylosis; intervertebral disc disorders; other back problems (19 sources) Lumbar radiculopathy; Translations: [Radiculopathy, lumbar region] 02-01-2019 Episodic Sprains and strains (19 sources) Low back strain; Translations: [Strain of muscle, fascia and tendon of lower back, initial encounter] 02-01-2019 Episodic Viral infection (19 sources) Disease caused by 2019-nCoV; Translations: [COVID-19] 01-11-2021 Episodic Past or Other Problems Problem Classification Problem Date Documented Da te Episodic/Chronic Other nutritional; endocrine; and metabolic disorders (2 sources) Abnormal weight gain; Translations: [Abnormal weight gain] Onset: 01-15-2017 Episodic Results Test Name Value Interpretation Reference Range Facility Absolute lymphocyte countOrd ered By: HEALTH ASSESSMENT on 10-21-2024 Lymphocytes Auto (Unsp spec) [#/Vol] 1.62 10*3/uL 0.83-4.51 [facility] Absolute neutrophil countOrd ered By: HEALTH ASSESSMENT on 10-21-2024 Neutrophils (Bld) [#/Vol] 5.7 10*3/uL 2.0-7.7 [facility] Absolute nucleated red blood cell countOrdered By: HEALTH ASSESSMENT on 10-21-2024 Nucleated RBC (Bld) [#/Vol] 0.00 10*3/uL 0- [facility] Anion gap in Serum or Plasma Ordered By: HEALTH ASSESSMENT on 10-21-2024 Anion gap [Moles/Vol] 10 mmol/L 5- [facility] BUN/creatinine ratioOrdered By: HEALTH ASSESSMENT on 10-21-2024 Urea nitrogen/Creatinine [Mass ratio] 19.2 mg/mg 10-20 [facility] Bilirubin Test strip Ql (U)O rdered By: HEALTH ASSESSMENT on 10-21-2024 Bilirubin Ql (U) Negative Negative [facility] Bilirubin directOrdered By: HEALTH ASSESSMENT on 10-21-2024 Bilirubin.direct [Mass/Vol] 0.18 mg/dL 0.00-0.30 [facility] Bilirubin, totalOrdered By: HEALTH ASSESSMENT on 10-21-2024 Bilirubin [Mass/Vol] 0.38 mg/dL 0.00-1.30 [facility] Blood band neutrophil count as percentage of total leukocytesOrdered By: HEALTH ASSESSMENT on 10-21-2024 Band form neutrophils/100 WBC (Bld) 69.0 % 47-70 [facility] CBC, Employeeon 10-21-2024 Absolute Lymph 1.62 X10 3/uL Normal 0.83-4.51 [facility] Comment on above: Performed By: #### L 400.0100, L500.2900, L100.0200 #### [facility] [place], [address] Absolute Neut 5.7 X10 3/uL Normal 2.0-7.7 [facility] Comment on above: Performed By: #### L 400.0100, L500.2900, L100.0200 #### [facility] [address] [place], [address] Basophils/100 WBC (Bld) 0.2 % Normal 0-1 [facility] Comment on above: Performed By: #### L 400.0100, L500.2900, L100.0200 #### [facility] [address] [place], [address] Eosinophils/100 WBC (Bld) 1.2 % Normal 0-5 [facility] Comment on above: Performed By: #### L 400.0100, L500.2900, L100.0200 #### [facility] [address] [place], [address] Erythrocyte distribution width (RBC) [Ratio] 13.4 % Normal 11.6-14.6 [facility] Comment on above: Performed By: #### L 400.0100, L500.2900, L100.0200 #### [facility] [address] [place], [address] Hematocrit (Bld) [Volume fraction] 40.6 % Normal 40-54 [facility] Comment on above: Performed By: #### L 400.0100, L500.2900, L100.0200 #### [facility] [address] [place], [address] Hemoglobin (Bld) [Mass/Vol] 14.0 g/dL Normal 13.0-16.5 [facility] Comment on above: Performed By: #### L 400.0100, L500.2900, L100.0200 #### [facility] [address] [place], [address] Lymphocytes/100 WBC (Bld) 19.7 % Normal 19-41 [facility] Comment on above: Performed By: #### L 400.0100, L500.2900, L100.0200 #### [facility] [address] [place], [address] MCH (RBC) [Entitic mass] 32.6 pg High 27.0-32.0 [facility] Comment on above: Performed By: #### L 400.0100, L500.2900, L100.0200 #### [facility] [address] [place], [address] MCHC (RBC) [Mass/Vol] 34.5 g/dL Normal 32-36 [facility] Comment on above: Performed By: #### L 400.0100, L500.2900, L100.0200 #### [facility] [address] [place], [address] MCV (RBC) [Entitic vol] 94.6 fL High 80-94 [facility] Comment on above: Performed By: #### L 400.0100, L500.2900, L100.0200 #### [facility] [address] [place], [address] Monocytes/100 WBC (Bld) 9.0 % Normal 0-10 [facility] Comment on above: Performed By: #### L 400.0100, L500.2900, L100.0200 #### [facility] [address] [place], [address] Neutrophils/100 WBC (Bld) 69.0 % Normal 47-70 [facility] Comment on above: Performed By: #### L 400.0100, L500.2900, L100.0200 #### [facility] [address] [place], [address] NRBC # 0.00 10 3/uL Normal 0-5 [facility] Comment on above: Performed By: #### L 400.0100, L500.2900, L100.0200 #### [facility] [address] [place], [address] Nucleated RBC (Bld) [#/Vol] 0 10*3/uL Normal 0-5 [facility] Comment on above: Performed By: #### L 400.0100, L500.2900, L100.0200 #### [facility] [address] [place], [address] Platelet mean volume (Bld) [Entitic vol] 10.6 fL Normal 6.2-12.0 [facility] Comment on above: Performed By: #### L 400.0100, L500.2900, L100.0200 #### [facility] [address] [place], [address] Platelets (Bld) [#/Vol] 226 10*3/uL Normal 150-450 [facility] Comment on above: Performed By: #### L 400.0100, L500.2900, L100.0200 #### [facility] [address] [place], [address] RBC (Bld) [#/Vol] 4.29 10*6/uL Low 4.6-6.2 [facility] Comment on above: Performed By: #### L 400.0100, L500.2900, L100.0200 #### [facility] [address] [place], [address] RDW SD 46.9 fl High 35.1-43.9 [facility] Comment on above: Performed By: #### L 400.0100, L500.2900, L100.0200 #### [facility] [address] [place], [address] WBC (Bld) [#/Vol] 8.2 10*3/uL Normal 4.4-11.0 [facility] Comment on above: Performed By: #### L 400.0100, L500.2900, L100.0200 #### [facility] [address] [place], [address] Calculated very low density lipoprotein (VLDL) cholesterol measurementOrdered By: HEALTH ASSESSMENT on 10-21-2024 Calculated very low density lipoprotein (VLDL) cholesterol measurement 21 mg/dL 5-40 [facility] Carbon dioxide, total [Moles /volume] in Central venous bloodOrdered By: HEALTH ASSESSMENT on 10-21-2024 CO2 [Moles/Vol] 23.6 mmol/L 21.0-32.0 [facility] Chloride assayOrdered By: HE ALTH ASSESSMENT on 10-21-2024 Chloride [Moles/Vol] 104 mmol/L 98-108 [facility] [employer] CHOL:HDL 3.68 Normal [facility] Comment on above: Order Comment: SEND NIKKI BARNETT,LIPID Performed By: #### L 400.0100, L500.2900, L100.0200 #### [facility] [address] [place], [address] Cholesterol [Mass/Vol] 138 mg/dL Normal <=200 [facility] Comment on above: Order Comment: SEND NIKKI CMP,LIPID Result Comment: Chol esterol level, Desirable <200 mg/dL Borderline high cholesterol 200-239 mg/dL High cholesterol >=240 mg/dL Recommendations of the NCEP Adult Treatment Panel for the following risk-cutoff thresholds for the [place] population. Performed By: #### L 400.0100, L500.2900, L100.0200 #### [facility] [address] [place], [address] Cholesterol in HDL [Mass/Vol] 38 mg/dL Low [facility] Comment on above: Order Comment: SEND NIKKI CMP,LIPID Result Comment: Maira onal Cholesterol Education Program (NCEP) guidelines: <40 mg/dL: Low HDL-cholesterol (major risk factor for CHD) >= 60 mg/dL: High HDL-cholesterol (negative risk factor for CHD) HDL-cholesterol is affected by a number of factors, e.g. smoking, exercise, hormones, sex and age. Performed By: #### L 400.0100, L500.2900, L100.0200 #### [facility] [address] [place], [address] Cholesterol in LDL [Mass/Vol] 79 mg/dL Normal [facility] Comment on above: Order Comment: SEND RAIL DETECTOR CAR OPERATOR.ANDREEA CMP,LIPID Result Comment: Bord bmplmd=520-361 mg/dL Higher Eyqm=671 mg/dL or greater Friedwald Equation for LDL-C Performed By: #### L 400.0100, L500.2900, L100.0200 #### [facility] [address] [place], [address] Cholesterol in VLDL [Mass/Vol] 21 mg/dL Normal 5-40 [facility] Comment on above: Order Comment: SEND RAIL DETECTOR CAR OPERATORUSMAYA CMP,LIPID Performed By: #### L 400.0100, L500.2900, L100.0200 #### [facility] [address] [place], [address] LDH 182 U/L Normal 87-241 [facility] Comment on above: Order Comment: SEND RAIL DETECTOR CAR OPERATORSUMAYA CMP,LIPID Performed By: #### L 400.0100, L500.2900, L100.0200 #### [facility] [address] [place], [address] Phosphate [Mass/Vol] 3.2 mg/dL Normal 2.7-4.5 [facility] Comment on above: Order Comment: SEND RAIL DETECTOR CAR OPERATORSUMAYA CMP,LIPID Performed By: #### L 400.0100, L500.2900, L100.0200 #### [facility] [address] [place], [address] Triglyceride [Mass/Vol] 106 mg/dL Normal [facility] Comment on above: Order Comment: SEND NIKO.ANDREEA CMP,LIPID Result Comment: The drugs N-Acetylcysteine and Metamizole may falsely depress this assay. Normal range: <150 mg/dL Borderline High: 150-199 mg/dL High: 200-499 mg/dL Very High: >500 mg/dL Performed By: #### L 400.0100, L500.2900, L100.0200 #### [facility] [address] [place], [address] URIC 8.8 mg/dL High 3.5-7.2 [facility] Comment on above: Order Comment: SEND NIKKI CMP,LIPID Result Comment: The drugs N-Acetylcysteine and Metamizole may falsely depress this assay. Performed By: #### L 400.0100, L500.2900, L100.0200 #### [facility] [address] [place], [address] Erythrocyte distribution wid th ratioOrdered By: HEALTH ASSESSMENT on 10-21-2024 Erythrocyte distribution width (RBC) [Ratio] 13.4 % 11.6-14.6 [facility] Erythrocyte distribution wid th standard deviationOrdered By: HEALTH ASSESSMENT on 10-21-2024 Erythrocyte distribution width (RBC) [Ratio] 46.9 fl High 35.1-43.9 [facility] Glomerular filtration rate ( GFR) estimation/1.73 sq m using serum, plasma, or whole bOrdered By: HEALTH ASSESSMENT on 10-21-2024 GFR/1.73 sq M.predicted among non-blacks MDRD (S/P/Bld) [Vol rate/Area] 78 mL/min/{1.73_m2} >60 [facility] Comment on above: mL/min/1.73m2 CKD-EP I Creatinine Equation (2020) Hematocrit Auto (Bld) [Volum e fraction]Ordered By: HEALTH ASSESSMENT on 10-21-2024 Hematocrit (Bld) [Volume fraction] 40.6 % 40-54 [facility] Hemoglobin A1con 10-21-2024 HbA1c (Bld) [Mass fraction] 5.8 % High <=5.6 [facility] Comment on above: Result Comment: Norm al < 5.7 % Prediabetic 5.7 - 6.4 % Diabetic >or= 6.5 % Please note range changes. Performed By: #### L 501.9985, L3890.6301, L501.9910 ####[facility] [address] [place], [place], [id number] Hemoglobin A1c percentageOrd ered By: Marilyn Gordon on 10-21-2024 HbA1c (Bld) [Mass fraction] 5.8 % High <5.7 [facility] Comment on above: Normal < 5.7 % Predi abetic 5.7 - 6.4 % Diabetic >or= 6.5 % Please note range changes. Hemoglobin measurementOrdere d By: HEALTH ASSESSMENT on 10-21-2024 Hemoglobin (Bld) [Mass/Vol] 14.0 g/dL 13.0-16.5 [facility] Hepatitis C Antibodyon 10-21 Hepatitis C Ab Non-Reactive Normal Nonreactive [facility] Comment on above: Result Comment: Reac tive: Presumptive evidence of antibodies to HCV. Follow CDC recommendations for supplemental testing. Non-Reactive: Antibodies to HCV were not detected; does not exclude the possibility of exposure to HCV Reactive Results are presumptive evidence of antibodies to HCV. Follow CDC recommendations for supplemental testing. Order confirmation testing: HCV Quant by PCR testing - HCVPCR #[id number] Non Reactive: < 0.8 Equivocal: >/= 0.8 to < 1.0 Reactive: >/= 1.0 The CDC requires that a reactive/equivocal HCV antibody result be sent out for confirmation. HCV Quant by PCR testing. Performed By: #### L 501.9985, L3890.6301, L501.9910 ####[facility] [address] [place], [place], [id number] Ketones Test strip Ql (U)Ord ered By: HEALTH ASSESSMENT on 10-21-2024 Ketones Ql (U) Negative Negative [facility] LDL calc ser/plasOrdered By: HEALTH ASSESSMENT on 10-21-2024 Cholesterol in LDL [Mass/Vol] 79 mg/dL [facility] Comment on above: Ugirmbhbxm=436-899 m g/dL & Higher Tttv=727 mg/dL or greaterFriedwald Equation for LDL-C Laboratory - Chemistry and C hemistry - challengeOrdered By: HEALTH ASSESSMENT on 10-21-2024 AST [Catalytic activity/Vol] 29 U/L <38 [facility] Lactate dehydrogenase (LDH) measurementOrdered By: HEALTH ASSESSMENT on 10-21-2024 LDH [Catalytic activity/Vol] 182 U/L 87-241 [facility] MCV (mean corpuscular volume ) determinationOrdered By: HEALTH ASSESSMENT on 10-21-2024 MCV (RBC) [Entitic vol] 94.6 fL High 80-94 [facility] Mean corpuscular hemoglobin (MCH) determinationOrdered By: HEALTH ASSESSMENT on 10-21-2024 MCH (RBC) [Entitic mass] 32.6 pg High 27.0-32.0 [facility] Mean corpuscular hemoglobin concentration (MCHC) determinationOrdered By: HEALTH ASSESSMENT on 10-21-2024 MCHC (RBC) [Mass/Vol] 34.5 g/dL 32-36 [facility] Mean platelet volume determi nationOrdered By: HEALTH ASSESSMENT on 10-21-2024 Platelet mean volume (Bld) [Entitic vol] 10.6 fL 6.2-12.0 [facility] Nitrite Test strip Ql (U)Ord ered By: HEALTH ASSESSMENT on 10-21-2024 Nitrite Ql (U) Negative Negative [facility] Nucleated red blood cell per centageOrdered By: HEALTH ASSESSMENT on 10-21-2024 Nucleated RBC/100 WBC (Bld) [Ratio] 0 % 0-5 [facility] PSA,Total - Annual Screenon 10-21-2024 PSA,TOT SCREEN 0.74 ng/mL Normal 0.02-4.00 [facility] Comment on above: Result Comment: This test was performed using the [employer] tPSA method. Measured values of a patient??sample can vary depending on the testing procedure used. PSA values determined on patient samples by different testing procedures cannot be used interchangeably. If there is a change in PSA assays while monitoring therapy, sequential testing should be performed to confirm baseline values. Performed By: #### L 501.9985, L3890.6301, L501.9910 ####[facility] [address] [place], [address] Platelet countOrdered By: HE ALTH ASSESSMENT on 10-21-2024 Platelets (Bld) [#/Vol] 226 10*3/uL 150-450 [facility] Potassium measurement (mass/ volume)Ordered By: HEALTH ASSESSMENT on 10-21-2024 Potassium (Unsp spec) [Mass/Vol] 4.5 mmol/L 3.3-5.1 [facility] Protein Test strip Ql (U)Ord ered By: HEALTH ASSESSMENT on 10-21-2024 Protein Ql (U) 15 mg/dl High Negative [facility] RBC Auto (Bld) [#/Vol]Ordere d By: HEALTH ASSESSMENT on 10-21-2024 RBC (Bld) [#/Vol] 4.29 10*6/uL Low 4.6-6.2 [facility] total cholesterol/ high density lipoprotein (HDL) cholesterol ratioOrdered By: HEALTH ASSESSMENT on 10-21-2024 Cholesterol.total/Choles terol in HDL [Mass ratio] 3.68 {ratio} [facility] Serum creatinine measurement (mass/volume)Ordered By: HEALTH ASSESSMENT on 10-21-2024 Creatinine [Mass/Vol] 1.11 mg/dL 0.70-1.20 [facility] Serum globulin measurementOr dered By: HEALTH ASSESSMENT on 10-21-2024 Globulin (S) [Mass/Vol] 2.7 g/dL 2.2-4.2 [facility] Serum glucose measurement (m ass/volume)Ordered By: HEALTH ASSESSMENT on 10-21-2024 Glucose [Mass/Vol] 114 mg/dL High 70-99 [facility] Serum or plasma alanine aguilera otransferase (ALT) measurementOrdered By: HEALTH ASSESSMENT on 10-21-2024 ALT [Catalytic activity/Vol] 28 U/L <47 [facility] Serum or plasma albumin danica urement (mass/volume)Ordered By: HEALTH ASSESSMENT on 10-21-2024 Albumin [Mass/Vol] 4.0 g/dL 3.5-5.0 [facility] Serum or plasma albumin/glob ulin mass ratioOrdered By: HEALTH ASSESSMENT on 10-21-2024 Albumin/Globulin [Mass ratio] 1.4 {ratio} 0.9-2.4 [facility] Serum or plasma alkaline medina sphatase measurementOrdered By: HEALTH ASSESSMENT on 10-21-2024 ALP [Catalytic activity/Vol] 102 U/L 40-129 [facility] Serum or plasma calcium danica urement (mass/volume)Ordered By: HEALTH ASSESSMENT on 10-21-2024 Calcium [Mass/Vol] 9.0 mg/dL 7.6-11.0 [facility] Serum or plasma cholesterol in HDL measurement (mass/volume)Ordered By: HEALTH ASSESSMENT on 10-21-2024 Cholesterol in HDL [Mass/Vol] 38 mg/dL Low >40 [facility] Comment on above: National Cholesterol Education Program (NCEP) guidelines:<40 mg/dL: Low HDL-cholesterol (major risk factor for CHD)>= 60 mg/dL: High HDL-cholesterol (negative risk factor for CHD)HDL-cholesterol is affected by a number of factors, e.g. smoking, exercise, hormones, sex and age. Serum or plasma cholesterol measurement (mass/volume)Ordered By: HEALTH ASSESSMENT on 10-21-2024 Cholesterol [Mass/Vol] 138 mg/dL <201 [facility] Comment on above: Cholesterol level, D esirable <200 mg/dLBorderline high cholesterol 200-239 mg/dLHigh cholesterol >=240 mg/dLRecommendations of the NCEP Adult Treatment Panel for the following risk-cutoff thresholds for the [place] population. Serum or plasma urea nitroge n measurement (mass/volume)Ordered By: HEALTH ASSESSMENT on 10-21-2024 Urea nitrogen [Mass/Vol] 21 mg/dL High 4-19 [facility] Serum or plasma uric acid me asurement (mass/volume)Ordered By: HEALTH ASSESSMENT on 10-21-2024 Urate [Mass/Vol] 8.8 mg/dL High 3.5-7.2 [facility] Comment on above: The drugs N-Acetylcy steine and Metamizole may falsely depress this assay. Sodium levelOrdered By: [facility] ASSESSMENT on 10-21-2024 Sodium [Moles/Vol] 138 mmol/L 133-145 [facility] Total proteinOrdered By: [facility] ASSESSMENT on 10-21-2024 Protein [Mass/Vol] 6.7 g/dL 5.9-8.4 [facility] Triglycerides measurementOrd ered By: HEALTH ASSESSMENT on 10-21-2024 Triglyceride [Mass/Vol] 106 mg/dL <199 [facility] Comment on above: The drugs N-Acetylcy steine and Metamizole may falsely depress this assay. Normal range: <150 mg/dLBorderline High: 150-199 mg/dLHigh: 200-499 mg/dLVery High: >500 mg/dL Urinalysis, Employeeon 10-21 Clarity (U) Clear Normal Clear [facility] Comment on above: Order Comment: Urine , Random Performed By: #### L 400.0100, L500.2900, L100.0200 #### [facility] [address] [place], [address] Color (U) Yellow Normal Yellow [facility] Comment on above: Order Comment: Urine , Random Performed By: #### L 400.0100, L500.2900, L100.0200 #### [facility] [address] [place], [address] BILIRUBIN URINE Negative Normal Negative [facility] Comment on above: Order Comment: Urine , Random Performed By: #### L 400.0100, L500.2900, L100.0200 #### [facility] [address] [place], [address] GLUCOSE, UR Normal Normal Normal [facility] Comment on above: Order Comment: Urine , Random Performed By: #### L 400.0100, L500.2900, L100.0200 #### [facility] [address] [place], [address] KETONE UR Negative Normal Negative [facility] Comment on above: Order Comment: Urine , Random Performed By: #### L 400.0100, L500.2900, L100.0200 #### [facility] [address] [place], [address] LEUK ESTERASE Negative Normal Negative [facility] Comment on above: Order Comment: Urine , Random Performed By: #### L 400.0100, L500.2900, L100.0200 #### [facility] [address] [place], [address] Nitrite Ql (U) Negative Normal Negative [facility] Comment on above: Order Comment: Urine , Random Performed By: #### L 400.0100, L500.2900, L100.0200 #### [facility] [address] [place], [address] OCCULT BLOOD-UR 10 /ul Abnormal Negative [facility] Comment on above: Order Comment: Urine , Random Performed By: #### L 400.0100, L500.2900, L100.0200 #### [facility] [address] [place], [address] pH UR 6.0 Normal 5.0 - 8.0 [facility] Comment on above: Order Comment: Urine , Random Performed By: #### L 400.0100, L500.2900, L100.0200 #### [facility] [address] [place], [address] PROT DIPSTX 15 mg/dl Abnormal Negative [facility] Comment on above: Order Comment: Urine , Random Performed By: #### L 400.0100, L500.2900, L100.0200 #### [facility] [address] [place], [address] SP.GR. DIPSTX 1.020 Normal 1.002-1.030 [facility] Comment on above: Order Comment: Urine , Random Performed By: #### L 400.0100, L500.2900, L100.0200 #### [facility] [address] [place], [address] UROBILI Normal Normal Normal [facility] Comment on above: Order Comment: Urine , Random Performed By: #### L 400.0100, L500.2900, L100.0200 #### [facility] [address] [place], [address] Urine clarityOrdered By: [facility] ASSESSMENT on 10-21-2024 Clarity (U) Clear Clear [facility] Urine color determinationOrd ered By: HEALTH ASSESSMENT on 10-21-2024 Color (U) Yellow Yellow [facility] Urine glucose detectionOrder ed By: HEALTH ASSESSMENT on 10-21-2024 Glucose Ql (U) Normal mg/dl Normal [facility] Urine leukocyte esterase det ection by dipstickOrdered By: HEALTH ASSESSMENT on 10-21-2024 Leukocyte esterase Test strip Ql (U) Negative Negative [facility] Urine pHOrdered By: HEALTH A SSESSMENT on 10-21-2024 pH (U) 6.0 [pH] 5.0 - 8.0 [facility] Urine specific gravity measu rementOrdered By: HEALTH ASSESSMENT on 10-21-2024 Specific gravity (U) [Rel density] 1.020 1.002-1.030 [facility] Urine urobilinogen measureme ntOrdered By: HEALTH ASSESSMENT on 10-21-2024 Urobilinogen Ql (U) Normal mg/dl Normal [facility] White blood cell (WBC) count Ordered By: HEALTH ASSESSMENT on 10-21-2024 WBC (Bld) [#/Vol] 8.2 10*3/uL 4.4-11.0 [facility] Cardiology Visit Reporton Cardiology Visit Report [facility] [address] [place] [address] OFFICE VISIT Date of Service: 10/20/24 MR#: [id number] Acct: [id number] Name: KAMALA BRASWELL Jr. Rep #: [id number] : 1970 Provider: FRANCISCO nunez Age/Sex: 54/M Location: [facility] Status: Signed HPI HPI History of Present Illness Details: This is a 54-year-old male who presents to the office today for a cardiovascular follow-up visit. He has a past medical history of dyslipidemia, hypertension who [...] in February 2022 that showed nonobstructive disease. From a cardiac standpoint, the patient is doing well. He denies any palpitations, chest pain, pressure or heaviness. He denies SOB, Orthopnea, and PND. He does not have bleeding issues; no blood in urine, stool, or nosebleeds. He does acknowledge fatigue-he states that he is scheduled for lab work by his PCP. He denies any myalgias, or claudication. He does not have edema, or sudden weight gain. He denies lightheadedness, dizziness, syncopal or near syncopal episodes, and headaches. 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 Is patient in pain?: No Allergies No Known Allergies Allergy (Verified 10/20/24 08:09) Medications ???Medication ???Instructions ???Recorded ???Confirmed ???Type naproxen sodium 220 mg capsule 220 mg PO BID PRN Pain 05/14/20 History (Aleve) aspirin 81 mg tablet,delayed 81 mg PO DAILY 02/11/22 10/20/24 H istory release (Adult Low Dose Aspirin) atorvastatin 40 mg tablet 40 mg PO QHS #90 tabs 02/14/22 Rx nitroglycerin 0.4 mg sublingual 0.4 mg sublingual Q5-15M PRN 04/2210/20/24 History tablet tizanidine 4 mg capsule 4 mg PO Q8H PRN muscle spasticity 06/23/23 10/20/24 Rx #20 caps losartan 100 mg tablet 100 mg PO DAILY #90 tabs 04/22/24 10/20/24 Rx amlodipine 5 mg tablet 5 mg PO DAILY #90 tabs 06/17/24 Rx Ejection fraction %: 65 Have you fallen in the past year?: No PFSH Medical History (Reviewed 10/20/24 @ 08:08 by Radha Mello RAIL DETECTOR CAR OPERATOR, RAIL DETECTOR CAR OPERATOR-C) Hordeolum externum left lower eyelid Coronary artery [...] in: none and other ROS Const Const: Positive for fatigue; Negative for weakness, headache(s) or frequent falls Eyes Eyes: Negative for blurry vision ENT ENT: Negative for headache(s), dizziness or Nosebleed/epistaxis Cardio Chest Pain: No Palpitations: No Edema: None Muscle aches with walking: None Resp Respiratory: Negative for SOB with activity, SOB at rest or SOB orthopnea SOB lying down GI GI: Negative nausea, vomiting, heartburn, bright, red blood in stools or black,tarry stools : Negative for (more content not included)... Normal [facility] Office Visit Reporton 2024 Office Visit Report [facility] [address] [place] [address] OFFICE VISIT Date of Service: 07/22/24 MR#: [id number] Acct: [id number] Patient: KAMALA BRASWELL Jr. Rep #: [id number] : 1970 Provider: DI Mota Age/Sex: 54/M Location: [facility] Status: Signed Employer Purchased Covid Test Note: Patient here today for Covid Testing, requested by their Employer. [facility] Billing Sheet Covid Covid Swab-Rapid: Yes 10/06/24 1137 Date Sylvain SEVILLA Cosigner Signature: Date (if applicable) CC: Normal [facility] Laboratory - Microbiology an d Antimicrobial susceptibilityOrdered By: Sylvain Adler on 07-22-2024 SARS-CoV-2 (COVID-19) RNA RANDALL+probe Ql (Unsp spec) Not detected [facility] No Panel InformationOrdered By: Sylvain Adler on 07-22-2024 POC Nasal Swab Influenza A,B Not detected [facility] POC Nasal Swab RSV Not detected [facility] Office Visit Reporton 2024 Office Visit Report [facility] [address] [place] [address] OFFICE VISIT Date of Service: 07/22/24 MR#: [id number] Acct: [id number] Patient: KAMALA BRASWELL Jr. Rep #: [id number] : 1970 Provider: DI Mota Age/Sex: 53/M Location: [facility] Status: Signed Employer Purchased Covid Test Note: Patient here today for Covid Testing, requested by their Employer. Assessment and Plan Assessment and Plan Orders: Orders POC Cepheid Covid, FluAB, RSV Today 07/22/24 0842 Date Sylvain Arias Signature: Date (if applicable) CC: Normal [facility] Urgent Care Visit Reporton 0 07-22-2024 Urgent Care Visit Report [facility] [address], [address] [place] [address] OFFICE VISIT Date of Service: 07/22/24 MR#: [id number] Acct: [id number] Name: KAMALA BRASWELL Jr. Rep #: [id number] : 1970 Provider: DI Mota Age/Sex: 53/M Location: [facility] [place] Status: Signed Intake Vital Signs 10/23/23 08:24 07/22/24 08:06 Height 5 ft 9 in BP 138/82 H Blood Pressure Location Lt brachial Position Sitting Respiration 17 Pulse 71 Pulse Source NIBP Temp 98.3 F Temp Source Oral Pulse Oximetry (%) 97 Oxygen Delivery Method room air Intake Visit Reasons: COUGH, FEVER LAST NIGHT, SORE THROAT Chief Complaint: cough, congestion, fever, ST [place] Hat Hydraulic Press Operator Required: No Is patient in pain?: No Allergies No Known Allergies Allergy (Verified 07/22/24 08:07) Have you fallen in the past year?: No Nurse's Note: cough, congestion, fever, ST x less than 24 hours. [facility] Medical History Hordeolum externum left lower [...] (Reviewed 10/23/23 @ 08:35 by Evelio Foss RAIL DETECTOR CAR OPERATOR, RAIL DETECTOR CAR OPERATOR-C) Smoking Status: Never smoker second hand exposure: [...] Exam Const General: cooperative and well developed [facility] Head: normal to inspection and atraumatic Ears: [...] Arias Signature: Date (if applicable) CC: Normal [facility] L501.5101on 07-15-2024 GGTP 27 IU/L Normal 0-65 [facility] Comment on above: Order Comment: LIVER CMP TESTS OVERLAP-ORDERED DBILLIVER LIPID-MCCONNELLOTHER TESTS-BOUR Result Comment: Perf ormed at: - [facility] [address] [id number] Agricultural Sciences Professor: Ruben Madison PhD, Phone: [phone] Performed By: #### L 5004100, L5015101, L100.0500, L500.4050, L501.6094, L5014700, L501.9444 ####[facility] [address] [place], [address] Anion gap in Serum or Plasma Ordered By: Lyla Ladd on 07-14-2024 Anion gap [Moles/Vol] 12 mmol/L 5-15 [facility] BUN/creatinine ratioOrdered By: Lyla Ladd on 07-14-2024 Urea nitrogen/Creatinine [Mass ratio] 17.4 mg/mg 10-20 [facility] Bilirubin directOrdered By: Lyla Ladd on 07-14-2024 Bilirubin.direct [Mass/Vol] 0.19 mg/dL 0.00-0.30 [facility] Bilirubin, Directon 07-15-19 25 Bilirubin.direct [Mass/Vol] 0.19 mg/dL Normal 0.00-0.30 [facility] Comment on above: Order Comment: LIVER CMP TESTS OVERLAP-ORDERED DBIL LIVER LIPID-LADD OTHER TESTS-JABOUR Performed By: #### L 500.4100, L501.5101, L100.0500, L500.4050, L501.9310, L501.4700, L501.9520 #### [facility] [address] [place], [place], [id number] (779) Bilirubin, totalOrdered By: Lyla Ladd on 07-14-2024 Bilirubin [Mass/Vol] 0.49 mg/dL 0.00-1.30 [facility] CBC-Complete Blood Cnt No Di ffon 07-14-2024 Erythrocyte distribution width (RBC) [Ratio] 13.1 % Normal 11.6-14.6 [facility] Comment on above: Order Comment: LIVER CMP TESTS OVERLAP-ORDERED DBIL LIVER LIPID-LADD OTHER TESTS-JABOUR Performed By: #### L 500.4100, L501.5101, L100.0500, L500.4050, L501.9310, L501.4700, L501.9520 #### [facility] [address] [place], [place], [id number] Hematocrit (Bld) [Volume fraction] 40.8 % Normal 40-54 [facility] Comment on above: Order Comment: LIVER CMP TESTS OVERLAP-ORDERED DBIL LIVER LIPID-LADD OTHER TESTS-JABOUR Performed By: #### L 500.4100, L501.5101, L100.0500, L500.4050, L501.9310, L501.4700, L501.9520 #### [facility] [address] [place], [address] Hemoglobin (Bld) [Mass/Vol] 14.0 g/dL Normal 13.0-16.5 [facility] Comment on above: Order Comment: LIVER CMP TESTS OVERLAP-ORDERED DBIL LIVER LIPID-LADD OTHER TESTS-JABOUR Performed By: #### L 500.4100, L501.5101, L100.0500, L500.4050, L501.9310, L501.4700, L501.9520 #### [facility] [address] [place], [address] MCH (RBC) [Entitic mass] 31.7 pg Normal 27.0-32.0 [facility] Comment on above: Order Comment: LIVER CMP TESTS OVERLAP-ORDERED DBIL LIVER LIPID-LADD OTHER TESTS-JABOUR Performed By: #### L 500.4100, L501.5101, L100.0500, L500.4050, L501.9310, L501.4700, L501.9520 #### [facility] [address] [place], [address] MCHC (RBC) [Mass/Vol] 34.3 g/dL Normal 32-36 [facility] Comment on above: Order Comment: LIVER CMP TESTS OVERLAP-ORDERED DBIL LIVER LIPID-LADD OTHER TESTS-JABOUR Performed By: #### L 500.4100, L501.5101, L100.0500, L500.4050, L501.9310, L501.4700, L501.9520 #### [facility] [address] [place], [address] MCV (RBC) [Entitic vol] 92.5 fL Normal 80-94 [facility] Comment on above: Order Comment: LIVER CMP TESTS OVERLAP-ORDERED DBIL LIVER LIPID-LADD OTHER TESTS-JABOUR Performed By: #### L 500.4100, L501.5101, L100.0500, L500.4050, L501.9310, L501.4700, L501.9520 #### [facility] [address] [place], [address] Platelet mean volume (Bld) [Entitic vol] 10.8 fL Normal 6.2-12.0 [facility] Comment on above: Order Comment: LIVER CMP TESTS OVERLAP-ORDERED DBIL LIVER LIPID-LADD OTHER TESTS-JABOUR Performed By: #### L 500.4100, L501.5101, L100.0500, L500.4050, L501.9310, L501.4700, L501.9520 #### [facility] [address] [place], [address] Platelets (Bld) [#/Vol] 268 10*3/uL Normal 150-450 [facility] Comment on above: Order Comment: LIVER CMP TESTS OVERLAP-ORDERED DBIL LIVER LIPID-LADD OTHER TESTS-JABOUR Performed By: #### L 500.4100, L501.5101, L100.0500, L500.4050, L501.9310, L501.4700, L501.9520 #### [facility] [address] [place], [address] RBC (Bld) [#/Vol] 4.41 10*6/uL Low 4.6-6.2 [facility] Comment on above: Order Comment: LIVER CMP TESTS OVERLAP-ORDERED DBIL LIVER LIPID-LADD OTHER TESTS-JABOUR Performed By: #### L 500.4100, L501.5101, L100.0500, L500.4050, L501.9310, L501.4700, L501.9520 #### [facility] [address] [place], [address] RDW SD 44.5 fl High 35.1-43.9 [facility] Comment on above: Order Comment: LIVER CMP TESTS OVERLAP-ORDERED DBIL LIVER LIPID-LADD OTHER TESTS-JABOUR Performed By: #### L 500.4100, L501.5101, L100.0500, L500.4050, L501.9310, L501.4700, L501.9520 #### [facility] [address] [place], [address] WBC (Bld) [#/Vol] 10.2 10*3/uL Normal 4.4-11.0 [facility] Comment on above: Order Comment: LIVER CMP TESTS OVERLAP-ORDERED DBIL LIVER LIPID-LADD OTHER TESTS-JABOUR Performed By: #### L 500.4100, L501.5101, L100.0500, L500.4050, L501.9310, L501.4700, L501.9520 #### [facility] [address] [place], [place], [id number] Calculated very low density lipoprotein (VLDL) cholesterol measurementOrdered By: Lyla Ladd on 07-14-2024 Calculated very low density lipoprotein (VLDL) cholesterol measurement 31 mg/dL 5-40 [facility] Carbon dioxide, total [Moles /volume] in Central venous bloodOrdered By: Lyla Ladd on 07-14-2024 CO2 [Moles/Vol] 23.0 mmol/L 21.0-32.0 [facility] Chloride assayOrdered By: Genie Ladd on 07-14-2024 Chloride [Moles/Vol] 103 mmol/L 98-108 [facility] Comprehensive Metabolic Prof ilon 07-14-2024 Albumin [Mass/Vol] 3.9 g/dL Normal 3.5-5.0 [facility] Comment on above: Order Comment: LIVER CMP TESTS OVERLAP-ORDERED DBIL LIVER LIPID-LADD OTHER TESTS-JABOUR Performed By: #### L 500.4100, L501.5101, L100.0500, L500.4050, L501.9310, L501.4700, L501.9520 #### [facility] [address] [place], [address] Albumin/Globulin [Mass ratio] 1.4 {ratio} Normal 0.9-2.4 [facility] Comment on above: Order Comment: LIVER CMP TESTS OVERLAP-ORDERED DBIL LIVER LIPID-LADD OTHER TESTS-JABOUR Performed By: #### L 500.4100, L501.5101, L100.0500, L500.4050, L501.9310, L501.4700, L501.9520 #### [facility] [address] [place], [address] ALK PHOS 102 U/L Normal 40-129 [facility] Comment on above: Order Comment: LIVER CMP TESTS OVERLAP-ORDERED DBIL LIVER LIPID-LADD OTHER TESTS-JABOUR Performed By: #### L 500.4100, L501.5101, L100.0500, L500.4050, L501.9310, L501.4700, L501.9520 #### [facility] [address] [place], [address] ALT [Catalytic activity/Vol] 29 U/L Normal <=46 [facility] Comment on above: Order Comment: LIVER CMP TESTS OVERLAP-ORDERED DBIL LIVER LIPID-LADD OTHER TESTS-JABOUR Performed By: #### L 500.4100, L501.5101, L100.0500, L500.4050, L501.9310, L501.4700, L501.9520 #### [facility] [address] [place], [address] AST [Catalytic activity/Vol] 26 U/L Normal <=37 [facility] Comment on above: Order Comment: LIVER CMP TESTS OVERLAP-ORDERED DBIL LIVER LIPID-LADD OTHER TESTS-JABOUR Performed By: #### L 500.4100, L501.5101, L100.0500, L500.4050, L501.9310, L501.4700, L501.9520 #### [facility] [address] [place], [address] Bilirubin [Mass/Vol] 0.49 mg/dL Normal 0.00-1.30 [facility] Comment on above: Order Comment: LIVER CMP TESTS OVERLAP-ORDERED DBIL LIVER LIPID-LADD OTHER TESTS-JABOUR Performed By: #### L 500.4100, L501.5101, L100.0500, L500.4050, L501.9310, L501.4700, L501.9520 #### [facility] [address] [place], [address] BUN/CRE 17.4 RATIO Normal 10-20 [facility] Comment on above: Order Comment: LIVER CMP TESTS OVERLAP-ORDERED DBIL LIVER LIPID-LADD OTHER TESTS-JABOUR Performed By: #### L 500.4100, L501.5101, L100.0500, L500.4050, L501.9310, L501.4700, L501.9520 #### [facility] [address] [place], [address] Calcium [Mass/Vol] 8.9 mg/dL Normal 7.6-11.0 [facility] Comment on above: Order Comment: LIVER CMP TESTS OVERLAP-ORDERED DBIL LIVER LIPID-LADD OTHER TESTS-JABOUR Performed By: #### L 500.4100, L501.5101, L100.0500, L500.4050, L501.9310, L501.4700, L501.9520 #### [facility] [address] [place], [address] Chloride [Moles/Vol] 103 mmol/L Normal 98-108 [facility] Comment on above: Order Comment: LIVER CMP TESTS OVERLAP-ORDERED DBIL LIVER LIPID-LADD OTHER TESTS-JABOUR Performed By: #### L 500.4100, L501.5101, L100.0500, L500.4050, L501.9310, L501.4700, L501.9520 #### [facility] [address] [place], [address] CO2 [Moles/Vol] 23.0 mmol/L Normal 21.0-32.0 [facility] Comment on above: Order Comment: LIVER CMP TESTS OVERLAP-ORDERED DBIL LIVER LIPID-LADD OTHER TESTS-JABOUR Performed By: #### L 500.4100, L501.5101, L100.0500, L500.4050, L501.9310, L501.4700, L501.9520 #### [facility] [address] [place], [place], [id number] Creatinine [Mass/Vol] 1.14 mg/dL Normal 0.70-1.20 [facility] Comment on above: Order Comment: LIVER CMP TESTS OVERLAP-ORDERED DBIL LIVER LIPID-LADD OTHER TESTS-JABOUR Performed By: #### L 500.4100, L501.5101, L100.0500, L500.4050, L501.9310, L501.4700, L501.9520 #### [facility] [address] [place], [place], [id number] GAP 12 Normal 5-15 [facility] Comment on above: Order Comment: LIVER CMP TESTS OVERLAP-ORDERED DBIL LIVER LIPID-LADD OTHER TESTS-JABOUR Performed By: #### L 500.4100, L501.5101, L100.0500, L500.4050, L501.9310, L501.4700, L501.9520 #### [facility] [address] [facility] [place], [place], [id number] GFR/1.73 sq M.predicted among non-blacks MDRD (S/P/Bld) [Vol rate/Area] 76 mL/min/{1.73_m2} Normal >60 [facility] Comment on above: Order Comment: LIVER CMP TESTS OVERLAP-ORDERED DBIL LIVER LIPID-LADD OTHER TESTS-JABOUR Result Comment: mL/m in/1.73m2 CKD-EPI Creatinine Equation (2020) Performed By: #### L 500.4100, L501.5101, L100.0500, L500.4050, L501.9310, L501.4700, L501.9520 #### [facility] [address] [place], [address] Globulin (S) [Mass/Vol] 2.8 g/dL Normal 2.2-4.2 [facility] Comment on above: Order Comment: LIVER CMP TESTS OVERLAP-ORDERED DBIL LIVER LIPID-LADD OTHER TESTS-JABOUR Performed By: #### L 500.4100, L501.5101, L100.0500, L500.4050, L501.9310, L501.4700, L501.9520 #### [facility] [address] [place], [address] Glucose [Mass/Vol] 101 mg/dL High 70-99 [facility] Comment on above: Order Comment: LIVER CMP TESTS OVERLAP-ORDERED DBIL LIVER LIPID-LADD OTHER TESTS-JABOUR Performed By: #### L 500.4100, L501.5101, L100.0500, L500.4050, L501.9310, L501.4700, L501.9520 #### [facility] [address] [facility] [place], [address] Potassium [Moles/Vol] 4.5 mmol/L Normal 3.3-5.1 [facility] Comment on above: Order Comment: LIVER CMP TESTS OVERLAP-ORDERED DBIL LIVER LIPID-LADD OTHER TESTS-JABOUR Performed By: #### L 500.4100, L501.5101, L100.0500, L500.4050, L501.9310, L501.4700, L501.9520 #### [facility] [address] [place], [address] Sodium [Moles/Vol] 138 mmol/L Normal 133-145 [facility] Comment on above: Order Comment: LIVER CMP TESTS OVERLAP-ORDERED DBIL LIVER LIPID-LADD OTHER TESTS-JABOUR Performed By: #### L 500.4100, L501.5101, L100.0500, L500.4050, L501.9310, L501.4700, L501.9520 #### [facility] [address] [place], [place], [id number] T PROT 6.7 g/dL Normal 5.9-8.4 [facility] Comment on above: Order Comment: LIVER CMP TESTS OVERLAP-ORDERED DBIL LIVER LIPID-LADD OTHER TESTS-JABOUR Performed By: #### L 500.4100, L501.5101, L100.0500, L500.4050, L501.9310, L501.4700, L501.9520 #### [facility] [address] [facility] [place], [place], [id number] Urea nitrogen [Mass/Vol] 20 mg/dL High 4-19 [facility] Comment on above: Order Comment: LIVER CMP TESTS OVERLAP-ORDERED DBIL LIVER LIPID-LADD OTHER TESTS-JABOUR Performed By: #### L 500.4100, L501.5101, L100.0500, L500.4050, L501.9310, L501.4700, L501.9520 #### [facility] [address] [place], [place], [id number] Erythrocyte distribution wid th ratioOrdered By: Lyla Ladd on 07-14-2024 Erythrocyte distribution width (RBC) [Ratio] 13.1 % 11.6-14.6 [facility] Erythrocyte distribution wid th standard deviationOrdered By: Lyla Ladd on 07-14-2024 Erythrocyte distribution width (RBC) [Ratio] 44.5 fl High 35.1-43.9 [facility] Gamma glutamyl transferase ( GGT) measurementOrdered By: Lyla Ladd on 07-14-2024 Amylase [Catalytic activity/Vol] 27 U/L 0-65 [facility] Comment on above: Performed at: [facility] [address] [id number] Director: Ruben Madison PhD, Phone: [phone] Glomerular filtration rate ( GFR) estimation/1.73 sq m using serum, plasma, or whole bOrdered By: Lyla Ladd on 07-14-2024 GFR/1.73 sq M.predicted among non-blacks MDRD (S/P/Bld) [Vol rate/Area] 76 mL/min/{1.73_m2} >60 [facility] Comment on above: mL/min/1.73m2 CKD-EP I Creatinine Equation (2020) Hematocrit Auto (Bld) [Volum e fraction]Ordered By: Lyla Ladd on 07-14-2024 Hematocrit (Bld) [Volume fraction] 40.8 % 40-54 [facility] Hemoglobin measurementOrdere d By: Lyla Ladd on 07-14-2024 Hemoglobin (Bld) [Mass/Vol] 14.0 g/dL 13.0-16.5 [facility] LDL calc ser/plasOrdered By: Lyla Ladd on 07-14-2024 Cholesterol in LDL [Mass/Vol] 88 mg/dL [facility] Comment on above: Amjkljbldk=038-123 m g/dL & Higher Zyiy=851 mg/dL or greater Laboratory - Chemistry and C hemistry - challengeOrdered By: Lyla Ladd on 07-14-2024 AST [Catalytic activity/Vol] 26 U/L <38 [facility] Lipid Profileon 07-14-2024 CHOL:HDL 4.92 Normal [facility] Comment on above: Order Comment: LIVER CMP TESTS OVERLAP-ORDERED DBIL LIVER LIPID-WILBERTO OTHER TESTS-JUANA Performed By: #### L 500.4100, L501.5101, L100.0500, L500.4050, L501.9310, L501.4700, L501.9520 #### [facility] [address] [place], [place], [id number] Cholesterol [Mass/Vol] 149 mg/dL Normal <=200 [facility] Comment on above: Order Comment: LIVER CMP TESTS OVERLAP-ORDERED DBIL LIVER LIPID-WILBERTO OTHER TESTS-JUANA Result Comment: Chol esterol level, Desirable <200 mg/dL Borderline high cholesterol 200-239 mg/dL High cholesterol >=240 mg/dL Recommendations of the NCEP Adult Treatment Panel for the following risk-cutoff thresholds for the [place] population. Performed By: #### L 500.4100, L501.5101, L100.0500, L500.4050, L501.9310, L501.4700, L501.9520 #### [facility] [address] [place], [address] Cholesterol in HDL [Mass/Vol] 30 mg/dL Low [facility] Comment on above: Order [...] sex and age. Performed By: #### L 500.4100, L501.5101, L100.0500, L500.4050, L501.9310, L501.4700, L501.9520 #### [facility] [address] [facility] [place], [address] Cholesterol in LDL [Mass/Vol] 88 mg/dL Normal [facility] Comment on above: Order Comment: LIVER CMP TESTS OVERLAP-ORDERED DBIL LIVER LIPID-LADD OTHER TESTS-JABOUR Result Comment: Bord kdjwvd=312-082 mg/dL Higher Mgqm=164 mg/dL or greater Performed By: #### L 500.4100, L501.5101, L100.0500, L500.4050, L501.9310, L501.4700, L501.9520 #### [facility] [address] [place], [address] Cholesterol in VLDL [Mass/Vol] 31 mg/dL Normal 5-40 [facility] Comment on above: Order Comment: LIVER CMP TESTS OVERLAP-ORDERED DBIL LIVER LIPID-LADD OTHER TESTS-JABOUR Performed By: #### L 500.4100, L501.5101, L100.0500, L500.4050, L501.9310, L501.4700, L501.9520 #### [facility] [address] [place], [place], [address] Triglyceride [Mass/Vol] 153 mg/dL Normal [facility] Comment on above: Order Comment: LIVER CMP TESTS OVERLAP-ORDERED DBIL LIVER LIPID-WILBERTO OTHER TESTS-JUANA Result Comment: The drugs N-Acetylcysteine and Metamizole may falsely depress this assay. Normal range: <150 mg/dL Borderline High: 150-199 mg/dL High: 200-499 mg/dL Very High: >500 mg/dL Performed By: #### L 500.4100, L501.5101, L100.0500, L500.4050, L501.9310, L501.4700, L501.9520 #### [facility] [address] [facility] [place], [place], [id number] MCV (mean corpuscular volume ) determinationOrdered By: Lyla Ladd on 07-14-2024 MCV (RBC) [Entitic vol] 92.5 fL 80-94 [facility] Mean corpuscular hemoglobin (MCH) determinationOrdered By: Lyla Ladd on 07-14-2024 MCH (RBC) [Entitic mass] 31.7 pg 27.0-32.0 [facility] Mean corpuscular hemoglobin concentration (MCHC) determinationOrdered By: Lyla Ladd on 07-14-2024 MCHC (RBC) [Mass/Vol] 34.3 g/dL 32-36 [facility] Mean platelet volume determi nationOrdered By: Lyla Ladd on 07-14-2024 Platelet mean volume (Bld) [Entitic vol] 10.8 fL 6.2-12.0 [facility] Platelet countOrdered By: Genie Ladd on 07-14-2024 Platelets (Bld) [#/Vol] 268 10*3/uL 150-450 [facility] Potassium measurement (mass/ volume)Ordered By: Lyla Ladd on 07-14-2024 Potassium (Unsp spec) [Mass/Vol] 4.5 mmol/L 3.3-5.1 [facility] RBC Auto (Bld) [#/Vol]Ordere d By: Lyla Ladd on 07-14-2024 RBC (Bld) [#/Vol] 4.41 10*6/uL Low 4.6-6.2 [facility] Screening total cholesterol/ high density lipoprotein (HDL) cholesterol ratioOrdered By: Lyla Ladd on 07-14-2024 Cholesterol.total/Choles terol in HDL [Mass ratio] 4.92 {ratio} [facility] Serum creatinine measurement (mass/volume)Ordered By: Lyla Ladd on 07-14-2024 Creatinine [Mass/Vol] 1.14 mg/dL 0.70-1.20 [facility] Serum globulin measurementOr dered By: Lyla Ladd on 07-14-2024 Globulin (S) [Mass/Vol] 2.8 g/dL 2.2-4.2 [facility] Serum glucose measurement (m ass/volume)Ordered By: Lyla Ladd on 07-14-2024 Glucose [Mass/Vol] 101 mg/dL High 70-99 [facility] Serum or plasma alanine aguilera otransferase (ALT) measurementOrdered By: Lyla Ladd on 07-14-2024 ALT [Catalytic activity/Vol] 29 U/L <47 [facility] Serum or plasma albumin danica urement (mass/volume)Ordered By: Lyla Ladd on 07-14-2024 Albumin [Mass/Vol] 3.9 g/dL 3.5-5.0 [facility] Serum or plasma albumin/glob ulin mass ratioOrdered By: Lyla Ladd on 07-14-2024 Albumin/Globulin [Mass ratio] 1.4 {ratio} 0.9-2.4 [facility] Serum or plasma alkaline medina sphatase measurementOrdered By: Lyla Ladd on 07-14-2024 ALP [Catalytic activity/Vol] 102 U/L 40-129 [facility] Serum or plasma calcium danica urement (mass/volume)Ordered By: Lyla Ladd on 07-14-2024 Calcium [Mass/Vol] 8.9 mg/dL 7.6-11.0 [facility] Serum or plasma cholesterol in HDL measurement (mass/volume)Ordered By: Lyla Ladd on 07-14-2024 Cholesterol in HDL [Mass/Vol] 30 mg/dL Low >40 [facility] Comment on above: National Cholesterol Education Program (NCEP) guidelines:<40 mg/dL: Low HDL-cholesterol (major risk factor for CHD)>= 60 mg/dL: High HDL-cholesterol (negative risk factor for CHD)HDL-cholesterol is affected by a number of factors, e.g. smoking, exercise, hormones, sex and age. Serum or plasma cholesterol measurement (mass/volume)Ordered By: Lyla Ladd on 07-14-2024 Cholesterol [Mass/Vol] 149 mg/dL <201 [facility] Comment on above: Cholesterol level, D esirable <200 mg/dLBorderline high cholesterol 200-239 mg/dLHigh cholesterol >=240 mg/dLRecommendations of the NCEP Adult Treatment Panel for the following risk-cutoff thresholds for the [place] population. Serum or plasma urea nitroge n measurement (mass/volume)Ordered By: Lyla Ladd on 07-14-2024 Urea nitrogen [Mass/Vol] 20 mg/dL High 4-19 [facility] Sodium levelOrdered By: Ishan Ladd on 07-14-2024 Sodium [Moles/Vol] 138 mmol/L 133-145 [facility] T4 Total, Thyroxinon 025 T4 [Mass/Vol] 6.6 ug/dL Normal 4.5-12.1 [facility] Comment on above: Order Comment: LIVER CMP TESTS OVERLAP-ORDERED DBILLIVER LIPID-MCCONNELLOTHER TESTS-BOUR Performed By: #### L 500.4100, L501.5101, L100.0500, L500.4050, L501.9310, L501.4700, L501.9520 ####[facility] [address] [place], [address] TSH DL <= 0.005 mIU/L QnOrde red By: Lyla Ladd on 07-14-2024 TSH Qn 1.720 uIU/mL 0.300-4.200 [facility] Thyroid Stim Hormone (TSH)on 07-14-2024 TSH 1.720 uIU/mL Normal 0.300-4.200 [facility] Comment on above: Order Comment: LIVER CMP TESTS OVERLAP-ORDERED DBILLIVER LIPID-[facility]NA Performed By: #### L 500.4100, L501.5101, L100.0500, L500.4050, L501.9310, L501.4700, L501.9520 ####[facility] [address] [place], [address] ThyroxineOrdered By: Bettie Ladd on 07-14-2024 T4 [Mass/Vol] 6.6 ug/dL 4.5-12.1 [facility] Total proteinOrdered By: Christopher Ladd on 07-14-2024 Protein [Mass/Vol] 6.7 g/dL 5.9-8.4 [facility] Triglycerides measurementOrd ered By: Lyla Ladd on 07-14-2024 Triglyceride [Mass/Vol] 153 mg/dL <199 [facility] Comment on above: The drugs N-Acetylcy steine and Metamizole may falsely depress this assay. Normal range: <150 mg/dLBorderline High: 150-199 mg/dLHigh: 200-499 mg/dLVery High: >500 mg/dL White blood cell (WBC) count Ordered By: Lyla Ladd on 07-14-2024 WBC (Bld) [#/Vol] 10.2 10*3/uL 4.4-11.0 [facility] Basophil percentageOrdered B y: Jere Zhu on 06-23-2023 Basophil percentage 0 SEEN /hpf 0-5 [facility] Bilirubin Test strip Ql (U)O rdered By: Jere Zhu on 06-23-2023 Bilirubin Ql (U) Negative Negative [facility] Ketones Test strip Ql (U)Ord ered By: Jere Zhu on 06-23-2023 Ketones Ql (U) Negative Negative [facility] Mucus LM Ql (Urine sed)Order ed By: Jere Zhu on 06-23-2023 Mucus Ql (Urine sed) 0 SEEN /hpf [facility] Nitrite Test strip Ql (U)Ord ered By: Jere Zhu on 06-23-2023 Nitrite Ql (U) Negative Negative [facility] No Panel InformationOrdered By: Jere Zhu on 06-23-2023 Urine RBC 0 SEEN /hpf 0-5 [facility] Protein Test strip Ql (U)Ord ered By: Jere Zhu on 06-23-2023 Protein Ql (U) Negative Negative [facility] Squamous epithelial cells de tection in urine sediment by light microscopyOrdered By: Jere Zhu on 06-23-2023 Epithelial cells.squamous LM Ql (Urine sed) 0 SEEN /hpf 0-5 [facility] Urine blood detectionOrdered By: Jere Zhu on 06-23-2023 RBC Ql (U) Negative Negative [facility] Urine clarityOrdered By: Kashif Zhu on 06-23-2023 Clarity (U) Clear Clear [facility] Urine color determinationOrd ered By: Jere Zhu on 06-23-2023 Color (U) Yellow Yellow [facility] Urine glucose detectionOrder ed By: Jere Zhu on 06-23-2023 Glucose Ql (U) Normal mg/dl Normal [facility] Urine leukocyte esterase det ection by dipstickOrdered By: Jere Zhu on 06-23-2023 Leukocyte esterase Test strip Ql (U) Negative Negative [facility] Urine pHOrdered By: Jere fish on 06-23-2023 pH (U) 7.0 [pH] 5.0 - 8.0 [facility] Urine sediment bacteria coun t by microscopy (number/high power field)Ordered By: Jere Zhu on 06-23-2023 Bacteria LM.HPF (Urine sed) [#/Area] 0 /[HPF] None Seen [facility] Urine specific gravity measu rementOrdered By: Jere Zhu on 06-23-2023 Specific gravity (U) [Rel density] 1.005 1.002-1.030 [facility] Urine urobilinogen measureme ntOrdered By: Jere Zhu on 06-23-2023 Urobilinogen Ql (U) Normal mg/dl Normal [facility] Basophil percentageOrdered B y: Marilyn Gordon on 05-09-2023 Basophil percentage < 10.0 IU/mL <15 [facility] No Panel InformationOrdered By: Marilyn Gordon on 05-09-2023 Anti-Nuclear Antibody Screen Negative Negative [facility] Comment on above: Performed at: [address] [id number] Director: Ruben Madison PhD, Phone: [phone] Basophil percentageOrdered B y: [place] on 04-29-2023 Bilirubin [Mass/Vol] 0.50 mg/dL 0.20-1.00 [facility] Comment on above: For patients on eltr ombopag therapy, use of Dimension [place] TBIL is not recommended. Chloride [Moles/Vol] 108 mmol/L 98-107 [facility] Cholesterol [Mass/Vol] 134 mg/dL <200 [facility] Comment on above: <200 mg/dL Desirable 200-240 mg/dL Borderline >240 mg/dL High Risk Glucose [Mass/Vol] 107 mg/dL 74-106 [facility] Comment on above: Fasting Glucose resu lt from 100 to 125 mg/dL suggests IMPAIRED HOMEOSTASIS per A.D.A. criteria. Potassium [Moles/Vol] 3.9 mmol/L 3.5-5.1 [facility] Protein [Mass/Vol] 6.9 g/dL 6.4-8.2 [facility] Sodium [Moles/Vol] 138 mmol/L 136-145 [facility] Triglyceride [Mass/Vol] 115 mg/dL <199 [facility] Comment on above: The drugs N-Acetylcy steine and Metamizole may falsely depress this assay.Serum Triglycerides Reference Interval Normal <150 mg/dL Borderline high 150 - 199 mg/dL High 200 - 499 mg/dL Very High > or = 500 mg/dL Laboratory - Chemistry and C hemistry - challengeOrdered By: Mt Varela on 04-29-2023 Albumin/Globulin [Mass ratio] 1.0 {ratio} 0.9-2.4 [facility] ALP [Catalytic activity/Vol] 108 U/L 45-117 [facility] ALT [Catalytic activity/Vol] 36 U/L 16-61 [facility] Cholesterol in HDL [Mass/Vol] 39 mg/dL >40 [facility] Comment on above: The drugs N-Acetylcy steine and Metamizole may falsely depress this assay. Reference Range HDL <40 mg/dL Low HDL Cholesterol HDL >or= 60 mg/dL High HDL Cholesterol Cholesterol in LDL [Mass/Vol] 72 mg/dL 0-130 [facility] CO2 [Moles/Vol] 25.0 mmol/L 21.0-32.0 [facility] Globulin (S) [Mass/Vol] 3.5 g/dL 2.2-4.2 [facility] Urea nitrogen/Creatinine [Mass ratio] 15.5 mg/mg 10-20 [facility] No Panel InformationOrdered By: Mt Varela on 04-29-2023 Urine Microalbumin/Creatinine Ratio 6.4 mg/g CRE <30 [facility] Estimated GFR (MDRD) Amer 90 mL/min >60 [facility] Comment on above: GFR Calc Estimated GFR (MDRD) Non-Af Amer 74 mL/min >60 [facility] Comment on above: Non- GFR Calc Prostate Specific Antigen Screen 0.77 ng/mL 0.00-4.00 [facility] Comment on above: This test was perfor med using the TPSA assay method for [employer] chemistry system. Values obtained with differentassay methods cannot be used interchangably.When changing PSA assays in the course of monitoring apatient, additional sequential testing should be carriedout to confirm baseline values. VLDL Cholesterol 23 mg/dL 5-40 [facility] Serum or plasma calcium danica urement (mass/volume)Ordered By: [place] on 04-29-2023 Calcium [Mass/Vol] 8.6 mg/dL 8.5-10.1 [facility] Serum or plasma creatinine m easurement (mass/volume)Ordered By: [place] V[place] on 04-29-2023 Creatinine [Mass/Vol] 1.10 mg/dL 0.70-1.30 [facility] Comment on above: The validity of the calculated GFR & GFRAA in patients over 70 years has not been determined. Clinical correlation is essential. Serum or plasma urea nitroge n measurement (mass/volume)Ordered By: [place] V[place] on 04-29-2023 Urea nitrogen [Mass/Vol] 17 mg/dL 7-18 [facility] Thin prep Papanicolaou smear with manual screeningOrdered By: [place] V[place] on 04-29-2023 Thin prep Papanicolaou smear with manual screening 5.3 mg/L NO RANGE EST. [facility] Thin prep Papanicolaou smear with manual screening 3.4 g/dL 3.2-5.0 [facility] Thin prep Papanicolaou smear with manual screening 20 U/L 15-37 [facility] Thin prep Papanicolaou smear with manual screening 5 5-15 [facility] Urine creatinine measurement (mass/volume)Ordered By: [place] on 04-29-2023 Creatinine (U) [Mass/Vol] 82.00 mg/dL NO RANGE EST. [facility] Whole blood hemoglobin A1c/t otal hemoglobin ratio (mass fraction)Ordered By: [place] on 04-29-2023 HbA1c (Bld) [Mass fraction] 5.9 % 3.8-5.6 [facility] Comment on above: Normal < 5.7 % Predi abetic 5.7 - 6.4 % Diabetic >or= 6.5 % Please note range changes. Basophil percentageOrdered B y: Marilyn Gordon on 09-17-2022 Bilirubin [Mass/Vol] 0.60 mg/dL 0.20-1.00 [facility] Comment on above: For patients on eltr ombopag therapy, use of Dimension [place] TBIL is not recommended. Chloride [Moles/Vol] 104 mmol/L 98-107 [facility] Cholesterol [Mass/Vol] 138 mg/dL <200 [facility] Comment on above: <200 mg/dL Desirable 200-240 mg/dL Borderline >240 mg/dL High Risk Glucose [Mass/Vol] 104 mg/dL 74-106 [facility] Comment on above: Fasting Glucose resu lt from 100 to 125 mg/dL suggests IMPAIRED HOMEOSTASIS per A.D.A. criteria. Potassium [Moles/Vol] 4.5 mmol/L 3.5-5.1 [facility] Comment on above: Moderate Hemolysis, Result may be falsely increased. Protein [Mass/Vol] 7.2 g/dL 6.4-8.2 [facility] Sodium [Moles/Vol] 136 mmol/L 136-145 [facility] Triglyceride [Mass/Vol] 221 mg/dL <199 [facility] Comment on above: The drugs N-Acetylcy steine and Metamizole may falsely depress this assay.Serum Triglycerides Reference Interval Normal <150 mg/dL Borderline high 150 - 199 mg/dL High 200 - 499 mg/dL Very High > or = 500 mg/dL Laboratory - Chemistry and C hemistry - challengeOrdered By: Marilyn Gordon on 09-17-2022 ALP [Catalytic activity/Vol] 105 U/L 45-117 [facility] ALT [Catalytic activity/Vol] 40 U/L 16-61 [facility] CO2 [Moles/Vol] 29.0 mmol/L 21.0-32.0 [facility] Globulin (S) [Mass/Vol] 4.0 g/dL 2.2-4.2 [facility] Urea nitrogen/Creatinine [Mass ratio] 12.3 mg/mg 10-20 [facility] No Panel InformationOrdered By: Marilyn Gordon on 09-17-2022 Estimated GFR (MDRD) Amer 86 mL/min >60 [facility] Comment on above: GFR Calc Estimated GFR (MDRD) Non-Af Amer 71 mL/min >60 [facility] Comment on above: Non- GFR Calc Serum or plasma albumin dancia urement (mass/volume)Ordered By: Marilyn Gordon on 09-17-2022 Albumin [Mass/Vol] 3.2 g/dL 3.2-5.0 [facility] Serum or plasma albumin/glob ulin mass ratioOrdered By: Marilyn Gordon on 09-17-2022 Albumin/Globulin [Mass ratio] 0.8 {ratio} 0.9-2.4 [facility] Serum or plasma calcium danica urement (mass/volume)Ordered By: Marilyn Gordon on 09-17-2022 Calcium [Mass/Vol] 8.5 mg/dL 8.5-10.1 [facility] Serum or plasma cholesterol in HDL measurement (mass/volume)Ordered By: Marilyn Gordon on 09-17-2022 Cholesterol in HDL [Mass/Vol] 37 mg/dL >40 [facility] Comment on above: The drugs N-Acetylcy steine and Metamizole may falsely depress this assay. Reference Range HDL <40 mg/dL Low HDL Cholesterol HDL >or= 60 mg/dL High HDL Cholesterol Serum or plasma cholesterol in VLDL measurement (mass/volume)Ordered By: Marilyn Gordon on 09-17-2022 Cholesterol in VLDL [Mass/Vol] 44 mg/dL 5-40 [facility] Serum or plasma creatinine m easurement (mass/volume)Ordered By: Marilyn Gordon on 09-17-2022 Creatinine [Mass/Vol] 1.14 mg/dL 0.70-1.30 [facility] Comment on above: The validity of the calculated GFR & GFRAA in patients over 70 years has not been determined. Clinical correlation is essential. Serum or plasma low density lipoprotein (LDL) cholesterol measurement (mass/volume)Ordered By: Marilyn oGrdon on 09-17-2022 Cholesterol in LDL [Mass/Vol] 57 mg/dL 0-130 [facility] Serum or plasma urea nitroge n measurement (mass/volume)Ordered By: Marilyn Gordon on 09-17-2022 Urea nitrogen [Mass/Vol] 14 mg/dL 7-18 [facility] Thin prep Papanicolaou smear with manual screeningOrdered By: Marilyn Gordon on 09-17-2022 Thin prep Papanicolaou smear with manual screening 49 U/L 15-37 [facility] Comment on above: Moderate Hemolysis, Result may be falsely increased. Thin prep Papanicolaou smear with manual screening 3 5-15 [facility] Thin prep Papanicolaou smear with manual screening < 5.0 mg/L NO RANGE EST. [facility] Whole blood hemoglobin A1c/t otal hemoglobin ratio (mass fraction)Ordered By: Marilyn Gordon on 09-17-2022 HbA1c (Bld) [Mass fraction] 5.7 % 3.8-5.6 [facility] Comment on above: Normal < 5.7 % Predi abetic 5.7 - 6.4 % Diabetic >or= 6.5 % Please note range changes. Basophil percentageOrdered B y: Marilyn Gordon on 05-08-2022 Bilirubin [Mass/Vol] 0.50 mg/dL 0.20-1.00 [facility] Comment on above: For patients on eltr ombopag therapy, use of Dimension [place] TBIL is not recommended. Chloride [Moles/Vol] 104 mmol/L 98-107 [facility] Cholesterol [Mass/Vol] 180 mg/dL <200 [facility] Comment on above: <200 mg/dL Desirable 200-240 mg/dL Borderline >240 mg/dL High Risk Glucose [Mass/Vol] 112 mg/dL 74-106 [facility] Comment on above: Fasting Glucose resu lt from 100 to 125 mg/dL suggests IMPAIRED HOMEOSTASIS per A.D.A. criteria. Potassium [Moles/Vol] 4.2 mmol/L 3.5-5.1 [facility] Comment on above: Moderate Hemolysis, Result may be falsely increased. Protein [Mass/Vol] 7.5 g/dL 6.4-8.2 [facility] Sodium [Moles/Vol] 139 mmol/L 136-145 [facility] Triglyceride [Mass/Vol] 244 mg/dL <199 [facility] Comment on above: The drugs N-Acetylcy steine and Metamizole may falsely depress this assay.Serum Triglycerides Reference Interval Normal <150 mg/dL Borderline high 150 - 199 mg/dL High 200 - 499 mg/dL Very High > or = 500 mg/dL Laboratory - Chemistry and C hemistry - challengeOrdered By: Marilyn Gordon on 05-08-2022 ALP [Catalytic activity/Vol] 83 U/L 45-117 [facility] ALT [Catalytic activity/Vol] 50 U/L 16-61 [facility] CO2 [Moles/Vol] 28.0 mmol/L 21.0-32.0 [facility] Globulin (S) [Mass/Vol] 3.8 g/dL 2.2-4.2 [facility] Urea nitrogen/Creatinine [Mass ratio] 17.7 mg/mg 10-20 [facility] No Panel InformationOrdered By: Marilyn Gordon on 05-08-2022 Estimated GFR (MDRD) Amer 87 mL/min >60 [facility] Comment on above: GFR Calc Estimated GFR (MDRD) Non-Af Amer 72 mL/min >60 [facility] Comment on above: Non- GFR Calc Serum or plasma albumin danica urement (mass/volume)Ordered By: Marilyn Gordon on 05-08-2022 Albumin [Mass/Vol] 3.7 g/dL 3.2-5.0 [facility] Serum or plasma albumin/glob ulin mass ratioOrdered By: Marilyn Gordon on 05-08-2022 Albumin/Globulin [Mass ratio] 1.0 {ratio} 0.9-2.4 [facility] Serum or plasma calcium danica urement (mass/volume)Ordered By: Marilyn Gordon on 05-08-2022 Calcium [Mass/Vol] 9.1 mg/dL 8.5-10.1 [facility] Serum or plasma cholesterol in HDL measurement (mass/volume)Ordered By: Marilyn Gordon on 05-08-2022 Cholesterol in HDL [Mass/Vol] 38 mg/dL >40 [facility] Comment on above: The drugs N-Acetylcy steine and Metamizole may falsely depress this assay. Reference Range HDL <40 mg/dL Low HDL Cholesterol HDL >or= 60 mg/dL High HDL Cholesterol Serum or plasma cholesterol in VLDL measurement (mass/volume)Ordered By: Marilyn Gordon on 05-08-2022 Cholesterol in VLDL [Mass/Vol] 49 mg/dL 5-40 [facility] Serum or plasma creatinine m easurement (mass/volume)Ordered By: Marilyn Gordon on 05-08-2022 Creatinine [Mass/Vol] 1.13 mg/dL 0.70-1.30 [facility] Comment on above: The validity of the calculated GFR & GFRAA in patients over 70 years has not been determined. Clinical correlation is essential. Serum or plasma low density lipoprotein (LDL) cholesterol measurement (mass/volume)Ordered By: Marilyn Gordon on 05-08-2022 Cholesterol in LDL [Mass/Vol] 93 mg/dL 0-130 [facility] Serum or plasma urea nitroge n measurement (mass/volume)Ordered By: Marilyn Gordon on 05-08-2022 Urea nitrogen [Mass/Vol] 20 mg/dL 7-18 [facility] Thin prep Papanicolaou smear with manual screeningOrdered By: Marilyn Gordon on 05-08-2022 Thin prep Papanicolaou smear with manual screening 40 U/L 15-37 [facility] Comment on above: Moderate Hemolysis, Result may be falsely increased. Thin prep Papanicolaou smear with manual screening 7 5-15 [facility] Whole blood hemoglobin A1c/t otal hemoglobin ratio (mass fraction)Ordered By: Marilyn Gordon on 05-08-2022 HbA1c (Bld) [Mass fraction] 5.3 % 3.8-5.6 [facility] Comment on above: Normal < 5.7 % Predi abetic 5.7 - 6.4 % Diabetic >or= 6.5 % Please note range changes. Absolute lymphocyte countOrd ered By: Evelio Foss on 02-15-2022 Lymphocytes Auto (Unsp spec) [#/Vol] 2.02 10*3/uL 0.83-4.51 [facility] Basophil percentageOrdered B y: Evelio Foss on 02-15-2022 Basophils/100 WBC (Bld) 0.3 % 0-1 [facility] Chloride [Moles/Vol] 107 mmol/L 98-107 [facility] Eosinophils/100 WBC (Bld) 1.4 % 0-5 [facility] Glucose [Mass/Vol] 103 mg/dL 74-106 [facility] Comment on above: Fasting Glucose resu lt from 100 to 125 mg/dL suggests IMPAIRED HOMEOSTASIS per A.D.A. criteria. Neutrophils (Bld) [#/Vol] 6.2 10*3/uL 2.0-7.7 [facility] Neutrophils/100 WBC (Bld) 67.2 % 47-70 [facility] Potassium [Moles/Vol] 3.9 mmol/L 3.5-5.1 [facility] Sodium [Moles/Vol] 139 mmol/L 136-145 [facility] WBC (Bld) [#/Vol] 9.3 10*3/uL 4.4-11.0 [facility] Blood erythrocytes count (nu mber/volume)Ordered By: Evelio Foss on 02-15-2022 RBC (Bld) [#/Vol] 4.51 10*6/uL 4.6-6.2 [facility] Blood hemoglobin measurement (mass/volume)Ordered By: Evelio Foss on 02-15-2022 Hemoglobin (Bld) [Mass/Vol] 14.4 g/dL 13.0-16.5 [facility] Blood lymphocytes/100 leukoc ytesOrdered By: Evelio Foss on 02-15-2022 Lymphocytes/100 WBC (Bld) 21.8 % 19-41 [facility] Blood monocytes/100 leukocyt esOrdered By: Evelio Foss on 02-15-2022 Monocytes/100 WBC (Bld) 8.5 % 0-10 [facility] Blood platelet mean volumeOr dered By: Evelio Foss on 02-15-2022 Platelet mean volume (Bld) [Entitic vol] 11.2 fL 6.2-12.0 [facility] Determination of erythrocyte mean corpuscular volume (MCV)Ordered By: Evelio Foss on 02-15-2022 MCV (RBC) [Entitic vol] 95.1 fL 80-94 [facility] Hematocrit Auto (Bld) [Volum e fraction]Ordered By: Evelio Foss on 02-15-2022 Hematocrit (Bld) [Volume fraction] 42.9 % 40-54 [facility] Laboratory - Chemistry and C hemistry - challengeOrdered By: Evelio Foss on 02-15-2022 CO2 [Moles/Vol] 28.0 mmol/L 21.0-32.0 [facility] Urea nitrogen/Creatinine [Mass ratio] 12.4 mg/mg 10-20 [facility] Laboratory - Hematology and Cell countsOrdered By: Evelio Foss on 02-15-2022 Erythrocyte distribution width (RBC) [Entitic vol] 46.5 fL 35.1-43.9 [facility] Erythrocyte distribution width (RBC) [Ratio] 13.4 % 11.6-14.6 [facility] Immature granulocytes/100 WBC (Bld) 0.800 % 0.0-0.9 [facility] Comment on above: IG% - Immature Granu locytes (promyelocytes, myelocytes and metamyelocytes) > 1% indicates that a LEFT SHIFT is Present. MCH (RBC) [Entitic mass] 31.9 pg 27.0-32.0 [facility] Nucleated RBC/100 WBC (Bld) [Ratio] 0 % 0-5 [facility] MCHC Auto (RBC) [Mass/Vol]Or dered By: Evelio Foss on 02-15-2022 MCHC (RBC) [Mass/Vol] 33.6 g/dL 32-36 [facility] No Panel InformationOrdered By: Evelio Foss on 12-10-2022 Estimated GFR (MDRD) Amer 88 mL/min >60 [facility] Comment on above: GFR Calc Estimated GFR (MDRD) Non-Af Amer 72 mL/min >60 [facility] Comment on above: Non- GFR Calc Platelets bldOrdered By: Feliz Foss on 02-15-2022 Platelets (Bld) [#/Vol] 238 10*3/uL 150-450 [facility] Serum or plasma calcium danica urement (mass/volume)Ordered By: Evelio Foss on 02-15-2022 Calcium [Mass/Vol] 9.2 mg/dL 8.5-10.1 [facility] Serum or plasma creatinine m easurement (mass/volume)Ordered By: Evelio Foss on 02-15-2022 Creatinine [Mass/Vol] 1.13 mg/dL 0.70-1.30 [facility] Comment on above: The validity of the calculated GFR & GFRAA in patients over 70 years has not been determined. Clinical correlation is essential. Serum or plasma urea nitroge n measurement (mass/volume)Ordered By: Evelio Foss on 02-15-2022 Urea nitrogen [Mass/Vol] 14 mg/dL 7-18 [facility] Thin prep Papanicolaou smear with manual screeningOrdered By: Evelio Foss on 02-15-2022 Thin prep Papanicolaou smear with manual screening 4 5-15 [facility] Laboratory - Microbiology an d Antimicrobial susceptibilityon 11-08-2021 SARS-CoV-2 (COVID-19) RNA RANDALL+probe Ql (Unsp spec) Not detected [facility] Work Phone: Basophil percentageon 2021 Bilirubin [Mass/Vol] 0.40 mg/dL 0.20-1.00 [facility] Work Phone: Comment on above: For patients on eltr ombopag therapy, use of Dimension [place] TBIL is not recommended. Chloride [Moles/Vol] 106 mmol/L 98-107 [facility] Work Phone: Cholesterol [Mass/Vol] 212 mg/dL <200 [facility] Work Phone: Comment on above: <200 mg/dL Desirable 200-240 mg/dL Borderline >240 mg/dL High Risk Glucose [Mass/Vol] 98 mg/dL 74-106 [facility] Work Phone: Potassium [Moles/Vol] 4.2 mmol/L 3.5-5.1 [facility] Work Phone: Protein [Mass/Vol] 7.6 g/dL 6.4-8.2 [facility] Work Phone: Sodium [Moles/Vol] 139 mmol/L 136-145 [facility] Work Phone: Triglyceride [Mass/Vol] 150 mg/dL <199 [facility] Work Phone: Comment on above: The drugs N-Acetylcy steine and Metamizole may falsely depress this assay.Serum Triglycerides Reference Interval Normal <150 mg/dL Borderline high 150 - 199 mg/dL High 200 - 499 mg/dL Very High > or = 500 mg/dL Laboratory - Chemistry and C hemistry - challengeon 10-22-2021 ALP [Catalytic activity/Vol] 77 U/L 45-117 [facility] Work Phone: ALT [Catalytic activity/Vol] 40 U/L 16-61 [facility] Work Phone: CO2 [Moles/Vol] 28.0 mmol/L 21.0-32.0 [facility] Work Phone: Globulin (S) [Mass/Vol] 4.1 g/dL 2.2-4.2 [facility] Work Phone: Urea nitrogen/Creatinine [Mass ratio] 13.7 mg/mg 10-20 [facility] Work Phone: No Panel Informationon 10-22 Estimated GFR (MDRD) Amer 79 mL/min >60 [facility] Work Phone: Comment on above: GFR Calc Estimated GFR (MDRD) Non-Af Amer 65 mL/min >60 [facility] Work Phone: Comment on above: Non- GFR Calc Prostate Specific Antigen Screen 0.79 ng/mL 0.00-4.00 [facility] Work Phone: Comment on above: This test was perfor med using the TPSA assay method for the[employer] chemistry system. Values obtained with differentassay methods cannot be used interchangably.When changing PSA assays in the course of monitoring apatient, additional sequential testing should be carriedout to confirm baseline values. Serum or plasma albumin danica urement (mass/volume)on 10-22-2021 Albumin [Mass/Vol] 3.5 g/dL 3.2-5.0 [facility] Work Phone: Serum or plasma albumin/glob ulin mass ratioon 10-22-2021 Albumin/Globulin [Mass ratio] 0.9 {ratio} 0.9-2.4 [facility] Work Phone: Serum or plasma calcium danica urement (mass/volume)on 10-22-2021 Calcium [Mass/Vol] 9.1 mg/dL 8.5-10.1 [facility] Work Phone: Serum or plasma cholesterol in HDL measurement (mass/volume)on 10-22-2021 Cholesterol in HDL [Mass/Vol] 38 mg/dL >40 [facility] Work Phone: Comment on above: The drugs N-Acetylcy steine and Metamizole may falsely depress this assay. Reference Range HDL <40 mg/dL Low HDL Cholesterol HDL >or= 60 mg/dL High HDL Cholesterol Serum or plasma cholesterol in VLDL measurement (mass/volume)on 10-22-2021 Cholesterol in VLDL [Mass/Vol] 30 mg/dL 5-40 [facility] Work Phone: Serum or plasma creatinine m easurement (mass/volume)on 10-22-2021 Creatinine [Mass/Vol] 1.24 mg/dL 0.70-1.30 [facility] Work Phone: Comment on above: The validity of the calculated GFR & GFRAA in patients over 70 years has not been determined. Clinical correlation is essential. Serum or plasma low density lipoprotein (LDL) cholesterol measurement (mass/volume)on 10-22-2021 Cholesterol in LDL [Mass/Vol] 144 mg/dL 0-130 [facility] Work Phone: Serum or plasma urea nitroge n measurement (mass/volume)on 10-22-2021 Urea nitrogen [Mass/Vol] 17 mg/dL 7-18 [facility] Work Phone: Thin prep Papanicolaou smear with manual screeningon 10-22-2021 Thin prep Papanicolaou smear with manual screening 27 U/L 15-37 [facility] Work Phone: Thin prep Papanicolaou smear with manual screening 5 5-15 [facility] Work Phone: Whole blood hemoglobin A1c/t otal hemoglobin ratio (mass fraction)on 08-06-2021 HbA1c (Bld) [Mass fraction] 5.4 % 3.8-5.6 [facility] Work Phone: Comment on above: Normal < 5.7 % Predi abetic 5.7 - 6.4 % Diabetic >or= 6.5 % Please note range changes. No Panel Informationon 04-22 SARS-CoV-2 Antigen (Rapid) [facility] Work Phone: Basophil percentageon 2021 Bilirubin [Mass/Vol] 0.30 mg/dL 0.20-1.00 [facility] Work Phone: Comment on above: For patients on eltr ombopag therapy, use of Dimension [place] TBIL is not recommended. Chloride [Moles/Vol] 105 mmol/L 98-107 [facility] Work Phone: Cholesterol [Mass/Vol] 228 mg/dL <200 [facility] Work Phone: Comment on above: <200 mg/dL Desirable 200-240 mg/dL Borderline >240 mg/dL High Risk Glucose [Mass/Vol] 93 mg/dL 74-106 [facility] Work Phone: Comment on above: Please note revised GLUCOSE reference range effective 2017. Potassium [Moles/Vol] 4.1 mmol/L 3.5-5.1 [facility] Work Phone: Protein [Mass/Vol] 7.7 g/dL 6.4-8.2 [facility] Work Phone: Sodium [Moles/Vol] 140 mmol/L 136-145 [facility] Work Phone: Triglyceride [Mass/Vol] 136 mg/dL [facility] Work Phone: Comment on above: The drugs N-Acetylcy steine and Metamizole may falsely depress this assay.Serum Triglycerides Reference Interval Normal <150 mg/dL Borderline high 150 - 199 mg/dL High 200 - 499 mg/dL Very High > or = 500 mg/dL Laboratory - Chemistry and C hemistry - challengeon 03-18-2021 ALP [Catalytic activity/Vol] 79 U/L 45-117 [facility] Work Phone: ALT [Catalytic activity/Vol] 38 U/L 16-61 [facility] Work Phone: CO2 [Moles/Vol] 27.0 mmol/L 21.0-32.0 [facility] Work Phone: Globulin (S) [Mass/Vol] 4.2 g/dL 2.2-4.2 [facility] Work Phone: Urea nitrogen/Creatinine [Mass ratio] 13.0 mg/mg 10-20 [facility] Work Phone: No Panel Informationon 03-18 Estimated GFR (MDRD) Amer 93 mL/min >60 [facility] Work Phone: Comment on above: GFR Calc Estimated GFR (MDRD) Non-Af Amer 77 mL/min >60 [facility] Work Phone: Comment on above: Non- GFR Calc Serum or plasma albumin danica urement (mass/volume)on 03-18-2021 Albumin [Mass/Vol] 3.5 g/dL 3.2-5.0 [facility] Work Phone: Serum or plasma albumin/glob ulin mass ratioon 03-18-2021 Albumin/Globulin [Mass ratio] 0.8 {ratio} 0.9-2.4 [facility] Work Phone: Serum or plasma calcium danica urement (mass/volume)on 03-18-2021 Calcium [Mass/Vol] 8.7 mg/dL 8.5-10.1 [facility] Work Phone: Serum or plasma cholesterol in HDL measurement (mass/volume)on 03-18-2021 Cholesterol in HDL [Mass/Vol] 39 mg/dL [facility] Work Phone: Comment on above: The drugs N-Acetylcy steine and Metamizole may falsely depress this assay. Reference Range HDL <40 mg/dL Low HDL Cholesterol HDL >or= 60 mg/dL High HDL Cholesterol Serum or plasma cholesterol in VLDL measurement (mass/volume)on 03-18-2021 Cholesterol in VLDL [Mass/Vol] 27 mg/dL 5-40 [facility] Work Phone: Serum or plasma creatinine m easurement (mass/volume)on 03-18-2021 Creatinine [Mass/Vol] 1.08 mg/dL 0.70-1.30 [facility] Work Phone: Comment on above: The validity of the calculated GFR & GFRAA in patients over 70 years has not been determined. Clinical correlation is essential. Serum or plasma low density lipoprotein (LDL) cholesterol measurement (mass/volume)on 03-18-2021 Cholesterol in LDL [Mass/Vol] 162 mg/dL 0-130 [facility] Work Phone: Serum or plasma urea nitroge n measurement (mass/volume)on 03-18-2021 Urea nitrogen [Mass/Vol] 14 mg/dL 7-18 [facility] Work Phone: Thin prep Papanicolaou smear with manual screeningon 03-18-2021 Thin prep Papanicolaou smear with manual screening 26 U/L 15-37 [facility] Work Phone: Thin prep Papanicolaou smear with manual screening 8 -15 [facility] Work Phone: Whole blood hemoglobin A1c/t otal hemoglobin ratio (mass fraction)on 03-18-2021 HbA1c (Bld) [Mass fraction] 5.3 % 3.8-5.6 [facility] Work Phone: Comment on above: Normal < 5.7 % Predi abetic 5.7 - 6.4 % Diabetic >or= 6.5 % Please note range changes. .GFRon 01-15-2017 eGFR (non-black) mL/min/{1.73_m2} Normal [facility] ([place]) Comment on above: Result Comment: GFR Population [...] #### L IPID, CMP, GFR, TSH ####[id number] [place], [place] [address] eGFR (non-black) 105 ml/min/1.73sqm Normal [facility] ([place]) Comment on above: Result Comment: GFR Population [...] L IPID, CMP, GFR, TSH ####[address] [place], [place] [address] CMPon 01-15-2017 Alanine aminotransferase (ALT) 41 U/L High 10-35 [facility] ([place]) Comment on above: Performed By: #### L IPID, CMP, GFR, TSH ####[address] [place], [place] [address] Albumin 4.1 G/dL Normal 3.5-5.0 [facility] ([place]) Comment on above: Performed By: #### L IPID, CMP, GFR, TSH ####[address] [place], [place] [address] Albumin/Globulin Ratio 1.5 {ratio} Normal 1.1-2.5 [facility] ([place]) Comment on above: Performed By: #### L IPID, CMP, GFR, TSH ####[address] [place], [place] [address] Alk Phos 76 IU/L Normal 40-135 [facility] ([place]) Comment on above: Performed By: #### L IPID, CMP, GFR, TSH ####[address] [place], [place] [address] Aspartate aminotransferase (AST) 27 U/L Normal 10-40 [facility] ([place]) Comment on above: Performed By: #### L IPID, CMP, GFR, TSH ####[address] [place], [place] [address] Bili Total 0.4 mg/dL Normal 0.2-1.0 [facility] ([place]) Comment on above: Performed By: #### L IPID, CMP, GFR, TSH ####[address] [place], [place] [address] BUN/Creatinine Ratio 14 ratio Normal 7-27 [facility] ([place]) Comment on above: Performed By: #### L IPID, CMP, GFR, TSH ####[address] [place], [place] [address] Calcium 9.2 mg/dL Normal 8.4-10.2 [facility] ([place]) Comment on above: Performed By: #### L IPID, CMP, GFR, TSH ####[address] [place], [place] [address] Chloride 102 mmol/L Normal 98-107 [facility] ([place]) Comment on above: Performed By: #### L IPID, CMP, GFR, TSH ####[address] [place], [place] [address] CO2 27 mmol/L Normal 22-29 [facility] ([place]) Comment on above: Performed By: #### L IPID, CMP, GFR, TSH ####[address] [place], [place] [address] Creatinine 0.9 mg/dL Normal 0.6-1.2 [facility] ([place]) Comment on above: Performed By: #### L IPID, CMP, GFR, TSH ####[address] [place], [place] [address] Electrolyte Balance 9.0 mEq/L Normal [facility] ([place]) Comment on above: Performed By: #### L IPID, CMP, GFR, TSH ####[address] [place], [place] [address] Globulin 2.8 G/dL Normal [facility] ([place]) Comment on above: Performed By: #### L IPID, CMP, GFR, TSH ####[address] [place], [place] [address] Glucose mass conc 103 mg/dL Normal 70-105 [facility] ([place]) Comment on above: Performed By: #### L IPID, CMP, GFR, TSH ####[address] [place], [place] [address] Potassium molar conc 4.5 mmol/L Normal 3.5-5.1 [facility] ([place]) Comment on above: Performed By: #### L IPID, CMP, GFR, TSH ####[address] [place], [place] [address] Protein 6.9 G/dL Normal 6.0-8.3 [facility] ([place]) Comment on above: Performed By: #### L IPID, CMP, GFR, TSH ####[id number] [place], [place] [address] Sodium 138 mmol/L Normal 136-146 [facility] ([place]) Comment on above: Performed By: #### L IPID, CMP, GFR, TSH ####[address] [place], [place] [address] Urea nitrogen 13.0 mg/dL Normal 7.0-18.0 [facility] ([place]) Comment on above: Performed By: #### L IPID, CMP, GFR, TSH ####[address] [place], [place] [address] LIPIDon 01-15-2017 Cholesterol 227 mg/dL High 131-200 [facility] ([place]) Comment on above: Result Comment: Chol esterol Reference Interval:Less than 200 [id number] Borderline high [id number] and above High risk Performed By: #### L IPID, CMP, GFR, TSH ####[id number] [place], [place] [address] HDL Cholesterol 40 mg/dL Normal 35-90 [facility] ([place]) Comment on above: Result Comment: HDL Reference Interval:Less than 40 Low - high risk60 or above Optimal/lowers risk Performed By: #### L IPID, CMP, GFR, TSH ####[id number] [place], [place] [address] LDL Cholesterol 150 mg/dL High 0-130 [facility] ([place]) Comment on above: Result Comment: LDL is a calculated result and requires a 12-hr fast.LDL Reference Interval:Less than 100 [id number] Near or above [id number] Borderline high [id number] High [id number] and above Very high risk Performed By: #### L IPID, CMP, GFR, TSH ####[address] [place], [place] [address] Triglyceride 184 mg/dL High 40-150 [facility] ([place]) Comment on above: Result Comment: Trig lyceride Reference Interval:Less than 150 [id number] Borderline high [id number] High [id number] or higher Very high risk Performed By: #### L IPID, CMP, GFR, TSH ####[id number] [place], [place] [address] TSHon 01-15-2017 Thyroid stimulating hormone (TSH) 1.34 mcIU/mL Normal 0.27-4.20 [facility] ([place]) Comment on above: Performed By: #### L IPID, CMP, GFR, TSH ####[id number] [place], [place] [address] Vital Signs Date Time Vital Sign Value Performing Clinician Ronit mcgee 10-19-2024 07:09-0400 Body height 175.26 cm Marilyn Gordon RAIL DETECTOR CAR OPERATOR-C Work Phone: [facility] 10-19-2024 07:09-0400 Body mass index (BMI) [Ratio] 49.6 kg/m2 Marilyn Gordon RAIL DETECTOR CAR OPERATOR-C Work Phone: [facility] 10-19-2024 07:09-0400 Body weight 152.4 kg Marilyn Gordon RAIL DETECTOR CAR OPERATOR-C Work Phone: [facility] 10-19-2024 07:09-0400 Diastolic blood pressure 76 mm[Hg] Marilyn Gordon RAIL DETECTOR CAR OPERATOR-C Work Phone: [facility] 10-19-2024 07:09-0400 Heart rate 64 /min Marilyn Gordon RAIL DETECTOR CAR OPERATOR-C Work Phone: [facility] 10-19-2024 07:09-0400 Respiratory rate 20 /min Marilyn Gordon RAIL DETECTOR CAR OPERATOR-C Work Phone: [facility] 10-19-2024 07:09-0400 SaO2% (BldA) [Mass fraction] 97 % Marilyn Gordon RAIL DETECTOR CAR OPERATOR-C Work Phone: [facility] 10-19-2024 07:09-0400 Systolic blood pressure 122 mm[Hg] Marilyn Gordon RAIL DETECTOR CAR OPERATOR-C Work Phone: [facility] 07-22-2024 08:06-0400 Body temperature 98.3 [degF] Marilyn Gordon RAIL DETECTOR CAR OPERATOR-C Work Phone: [facility] 07-22-2024 08:06-0400 Diastolic blood pressure 82 mm[Hg] Marilyn Gordon RAIL DETECTOR CAR OPERATOR-C Work Phone: [facility] 07-22-2024 08:06-0400 Heart rate 71 /min Marilyn Gordon RAIL DETECTOR CAR OPERATOR-C Work Phone: [facility] 07-22-2024 08:06-0400 Respiratory rate 17 /min Marilyn Gordon RAIL DETECTOR CAR OPERATOR-C Work Phone: [facility] 07-22-2024 08:06-0400 SaO2% (BldA) [Mass fraction] 97 % Marilyn Gordon RAIL DETECTOR CAR OPERATOR-C Work Phone: [facility] 07-22-2024 08:06-0400 Systolic blood pressure 138 mm[Hg] Marilyn Gordon RAIL DETECTOR CAR OPERATOR-C Work Phone: [facility] 06-23-2023 21:12-0400 Body temperature 97.9 [degF] RAIL DETECTOR CAR OPERATOR-C Marilyn Gordon RAIL DETECTOR CAR OPERATOR Work Phone: [facility] 06-23-2023 21:12-0400 Diastolic blood pressure 95 mm[Hg] RAIL DETECTOR CAR OPERATOR-C Marilyn Gordon RAIL DETECTOR CAR OPERATOR Work Phone: [facility] 06-23-2023 21:12-0400 Heart rate 62 /min RAIL DETECTOR CAR OPERATOR-C Marilyn Gordon RAIL DETECTOR CAR OPERATOR Work Phone: [facility] 06-23-2023 21:12-0400 Respiratory rate 16 /min RAIL DETECTOR CAR OPERATOR-C Marilyn Gordon RAIL DETECTOR CAR OPERATOR Work Phone: [facility] 06-23-2023 21:12-0400 SaO2% (BldA) [Mass fraction] 97 % RAIL DETECTOR CAR OPERATOR-C Marilyn Gordon RAIL DETECTOR CAR OPERATOR Work Phone: [facility] 06-23-2023 21:12-0400 Systolic blood pressure 170 mm[Hg] RAIL DETECTOR CAR OPERATOR-C Marilyn Gordon RAIL DETECTOR CAR OPERATOR Work Phone: [facility] 06-23-2023 19:27-0400 Body mass index (BMI) [Ratio] 53 kg/m2 RAIL DETECTOR CAR OPERATOR-C Marilyn Gordon RAIL DETECTOR CAR OPERATOR Work Phone: [facility] 06-23-2023 19:27-0400 Body weight 162.9 kg RAIL DETECTOR CAR OPERATOR-C Marilynalexey Gordon RAIL DETECTOR CAR OPERATOR Work Phone: [facility] 06-23-2023 17:17-0400 Body height 175.26 cm RAIL DETECTOR CAR OPERATOR-C Marilyn Gordon RAIL DETECTOR CAR OPERATOR Work Phone: [facility] 04-22-2023 08:46-0500 Body height 175.26 cm RAIL DETECTOR CAR OPERATOR-C Marilyn Gordon RAIL DETECTOR CAR OPERATOR Work Phone: [facility] 04-22-2023 08:46-0500 Body mass index (BMI) [Ratio] 50.5 kg/m2 RAIL DETECTOR CAR OPERATOR-C Marilyn Gordon RAIL DETECTOR CAR OPERATOR Work Phone: [facility] 04-22-2023 08:46-0500 Body weight 155.12 kg RAIL DETECTOR CAR OPERATOR-C Marilyn Gordon RAIL DETECTOR CAR OPERATOR Work Phone: [facility] 04-22-2023 08:46-0500 Diastolic blood pressure 88 mm[Hg] RAIL DETECTOR CAR OPERATOR-C Marilyn Gordon RAIL DETECTOR CAR OPERATOR Work Phone: [facility] 04-22-2023 08:46-0500 Heart rate 64 /min RAIL DETECTOR CAR OPERATOR-C Marilyn Gordon RAIL DETECTOR CAR OPERATOR Work Phone: [facility] 04-22-2023 08:46-0500 Respiratory rate 16 /min RAIL DETECTOR CAR OPERATOR-C Marilyn Gordon RAIL DETECTOR CAR OPERATOR Work Phone: [facility] 04-22-2023 08:46-0500 Systolic blood pressure 144 mm[Hg] RAIL DETECTOR CAR OPERATOR-C Marilyn Gordon RAIL DETECTOR CAR OPERATOR Work Phone: [facility] 03-24-2023 06:54-0500 Body temperature 98.3 [degF] RAIL DETECTOR CAR OPERATOR-C Marilyn Gordon RAIL DETECTOR CAR OPERATOR Work Phone: [facility] 03-24-2023 06:54-0500 Diastolic blood pressure 80 mm[Hg] RAIL DETECTOR CAR OPERATOR-C Marilyn Gordon RAIL DETECTOR CAR OPERATOR Work Phone: [facility] 03-24-2023 06:54-0500 Heart rate 78 /min RAIL DETECTOR CAR OPERATOR-C Marilyn Gordon RAIL DETECTOR CAR OPERATOR Work Phone: [facility] 03-24-2023 06:54-0500 Respiratory rate 14 /min RAIL DETECTOR CAR OPERATOR-C Marilyn Gordon RAIL DETECTOR CAR OPERATOR Work Phone: [facility] 03-24-2023 06:54-0500 SaO2% (BldA) [Mass fraction] 98 % RAIL DETECTOR CAR OPERATOR-C Marilyn Gordon RAIL DETECTOR CAR OPERATOR Work Phone: [facility] 03-24-2023 06:54-0500 Systolic blood pressure 140 mm[Hg] RAIL DETECTOR CAR OPERATOR-C Marilyn Gordon RAIL DETECTOR CAR OPERATOR Work Phone: [facility] 09-19-2022 14:36-0400 Body height 175.26 cm RAIL DETECTOR CAR OPERATOR-C Marilyn Gordon RAIL DETECTOR CAR OPERATOR Work Phone: [facility] 09-19-2022 14:36-0400 Body mass index (BMI) [Ratio] 48.9 kg/m2 RAIL DETECTOR CAR OPERATOR-C Marilyn Gordon RAIL DETECTOR CAR OPERATOR Work Phone: [facility] 09-19-2022 14:36-0400 Body weight 150.13 kg RAIL DETECTOR CAR OPERATOR-C Marilyn Gordon RAIL DETECTOR CAR OPERATOR Work Phone: [facility] 09-19-2022 14:36-0400 Diastolic blood pressure 94 mm[Hg] RAIL DETECTOR CAR OPERATOR-C Marilyn Gordon RAIL DETECTOR CAR OPERATOR Work Phone: [facility] 09-19-2022 14:36-0400 Heart rate 68 /min RAIL DETECTOR CAR OPERATOR-C Marilyn Gordon RAIL DETECTOR CAR OPERATOR Work Phone: [facility] 09-19-2022 14:36-0400 Respiratory rate 18 /min RAIL DETECTOR CAR OPERATOR-C Marilyn Gordon RAIL DETECTOR CAR OPERATOR Work Phone: [facility] 09-19-2022 14:36-0400 Systolic blood pressure 150 mm[Hg] RAIL DETECTOR CAR OPERATOR-C Marilyn Gordon RAIL DETECTOR CAR OPERATOR Work Phone: [facility] 05-19-2022 16:48-0400 Body temperature 97.4 [degF] RAIL DETECTOR CAR OPERATOR-C Marilyn Gordon RAIL DETECTOR CAR OPERATOR Work Phone: [facility] 05-19-2022 16:48-0400 Diastolic blood pressure 90 mm[Hg] RAIL DETECTOR CAR OPERATOR-C Marilyn Gordon RAIL DETECTOR CAR OPERATOR Work Phone: [facility] 05-19-2022 16:48-0400 Heart rate 67 /min RAIL DETECTOR CAR OPERATOR-C Marilyn Gordon RAIL DETECTOR CAR OPERATOR Work Phone: [facility] 05-19-2022 16:48-0400 Respiratory rate 18 /min RAIL DETECTOR CAR OPERATOR-C Marilyn Gordon RAIL DETECTOR CAR OPERATOR Work Phone: [facility] 05-19-2022 16:48-0400 SaO2% (BldA) [Mass fraction] 98 % RAIL DETECTOR CAR OPERATOR-C Marilyn Gordon RAIL DETECTOR CAR OPERATOR Work Phone: [facility] 05-19-2022 16:48-0400 Systolic blood pressure 140 mm[Hg] RAIL DETECTOR CAR OPERATOR-C Marilyn Gordon RAIL DETECTOR CAR OPERATOR Work Phone: [facility] 03-06-2022 11:22-0500 Body height 175.26 cm RAIL DETECTOR CAR OPERATOR-C Marilyn Gordon RAIL DETECTOR CAR OPERATOR Work Phone: [facility] 03-06-2022 11:20-0500 Body mass index (BMI) [Ratio] 48.4 kg/m2 RAIL DETECTOR CAR OPERATOR-C Marilyn Gordon RAIL DETECTOR CAR OPERATOR Work Phone: [facility] 03-06-2022 11:20-0500 Body weight 148.77 kg RAIL DETECTOR CAR OPERATOR-C Marilyn Gordon RAIL DETECTOR CAR OPERATOR Work Phone: [facility] 03-06-2022 11:20-0500 Diastolic blood pressure 81 mm[Hg] RAIL DETECTOR CAR OPERATOR-C Marilyn Gordon RAIL DETECTOR CAR OPERATOR Work Phone: [facility] 03-06-2022 11:20-0500 Heart rate 72 /min RAIL DETECTOR CAR OPERATOR-C Marilyn Gordon RAIL DETECTOR CAR OPERATOR Work Phone: [facility] 03-06-2022 11:20-0500 Respiratory rate 18 /min RAIL DETECTOR CAR OPERATOR-C Marilyn Gordon RAIL DETECTOR CAR OPERATOR Work Phone: [facility] 03-06-2022 11:20-0500 SaO2% (BldA) [Mass fraction] 97 % RAIL DETECTOR CAR OPERATOR-C Marilyn Gordon RAIL DETECTOR CAR OPERATOR Work Phone: [facility] 03-06-2022 11:20-0500 Systolic blood pressure 133 mm[Hg] RAIL DETECTOR CAR OPERATOR-C Marilyn Gordon RAIL DETECTOR CAR OPERATOR Work Phone: [facility] 02-19-2022 09:01-0500 Body height 175.26 cm RAIL DETECTOR CAR OPERATOR-C Marilyn Gordon RAIL DETECTOR CAR OPERATOR Work Phone: [facility] Work Phone: 02-19-2022 09:01-0500 Body weight 147.41 kg RAIL DETECTOR CAR OPERATOR-C Marilyn Gordon RAIL DETECTOR CAR OPERATOR Work Phone: [facility] 02-18-2022 07:17-0500 Body mass index (BMI) [Ratio] 47.9 kg/m2 RAIL DETECTOR CAR OPERATOR-C Marilyn Gordon RAIL DETECTOR CAR OPERATOR Work Phone: [facility] 01-13-2022 15:05-0500 Body height 175.26 cm RAIL DETECTOR CAR OPERATOR-C Marilyn Gordon RAIL DETECTOR CAR OPERATOR Work Phone: [facility] Work Phone: 01-13-2022 15:05-0500 Body mass index (BMI) [Ratio] 48.1 kg/m2 RAIL DETECTOR CAR OPERATOR-C Marilyn Gordon RAIL DETECTOR CAR OPERATOR Work Phone: [facility] Work Phone: 01-13-2022 15:05-0500 Body weight 147.87 kg RAIL DETECTOR CAR OPERATOR-C Marilyn Gordon RAIL DETECTOR CAR OPERATOR Work Phone: [facility] Work Phone: 01-13-2022 15:05-0500 Diastolic blood pressure 92 mm[Hg] RAIL DETECTOR CAR OPERATOR-C Marilyn Gordon RAIL DETECTOR CAR OPERATOR Work Phone: [facility] Work Phone: 01-13-2022 15:05-0500 Heart rate 86 /min RAIL DETECTOR CAR OPERATOR-C Marilyn Gordon RAIL DETECTOR CAR OPERATOR Work Phone: [facility] Work Phone: 01-13-2022 15:05-0500 Respiratory rate 16 /min RAIL DETECTOR CAR OPERATOR-C Marilyn Gordon RAIL DETECTOR CAR OPERATOR Work Phone: [facility] Work Phone: 01-13-2022 15:05-0500 Systolic blood pressure 148 mm[Hg] RAIL DETECTOR CAR OPERATOR-C Marilyn Gordon RAIL DETECTOR CAR OPERATOR Work Phone: [facility] Work Phone: 11-08-2021 06:51-0400 Body mass index (BMI) [Ratio] 46 kg/m2 RAIL DETECTOR CAR OPERATOR-C Marilyn Gordon RAIL DETECTOR CAR OPERATOR Work Phone: [facility] Work Phone: 11-08-2021 06:51-0400 Body temperature 98.7 [degF] RAIL DETECTOR CAR OPERATOR-C Marilyn Gordon RAIL DETECTOR CAR OPERATOR Work Phone: [facility] Work Phone: 11-08-2021 06:51-0400 Body weight 142.65 kg RAIL DETECTOR CAR OPERATOR-C Marilyn Gordon RAIL DETECTOR CAR OPERATOR Work Phone: [facility] Work Phone: 11-08-2021 06:51-0400 Diastolic blood pressure 80 mm[Hg] RAIL DETECTOR CAR OPERATOR-C Marilyn Gordon RAIL DETECTOR CAR OPERATOR Work Phone: [facility] Work Phone: 11-08-2021 06:51-0400 Heart rate 76 /min RAIL DETECTOR CAR OPERATOR-C Marilyn Gordon RAIL DETECTOR CAR OPERATOR Work Phone: [facility] Work Phone: 11-08-2021 06:51-0400 Respiratory rate 18 /min RAIL DETECTOR CAR OPERATOR-C Marilyn Gordon RAIL DETECTOR CAR OPERATOR Work Phone: [facility] Work Phone: 11-08-2021 06:51-0400 Systolic blood pressure 118 mm[Hg] RAIL DETECTOR CAR OPERATOR-C Marilyn Gordon RAIL DETECTOR CAR OPERATOR Work Phone: [facility] Work Phone: Encounters Encounter Date Encounter Type Care Provider Facility Start: 10-21-2024 Registered [facility] Start: 10-21-2024 End: 10-21-2024 ambulatory Marilyn Gordon RAIL DETECTOR CAR OPERATOR-C Work Phone: -Laboratory Start: 10-21-2024 End: 10-21-2024 Patient encounter procedure Marilyn Gordon RAIL DETECTOR CAR OPERATOR-C -Laboratory Work Phone: Start: 10-20-2024 End: 10-20-2024 Patient encounter procedure Radha Mello RAIL DETECTOR CAR OPERATOR-C -[facility] Work Phone: Start: 10-20-2024 End: 10-21-2024 ambulatory Marilyn Gordon RAIL DETECTOR CAR OPERATOR-C Work Phone: -[facility] Start: 07-22-2024 End: 07-22-2024 Patient encounter procedure Sylvain Adler [place] -[facility] Work Phone: Start: 07-22-2024 End: 07-22-2024 ambulatory Marilyn Gordon RAIL DETECTOR CAR OPERATOR-C Work Phone: [facility] Work Phone: Start: 07-14-2024 End: 07-14-2024 ambulatory Marilyn Gordon RAIL DETECTOR CAR OPERATOR-C Work Phone: [facility] Work Phone: Start: 07-14-2024 End: 07-14-[address] Ruben Marie MD -Laboratory, [place] Work Phone: Start: 07-14-2024 End: 07-14-2024 ambulatory Ruben Marie Facility:[facility] Start: 06-23-2023 End: 06-23-2023 Emergency department patient visit RAIL DETECTOR CAR OPERATOR-C Marilyn Gordon RAIL DETECTOR CAR OPERATOR Work Phone: [facility]-Emergency Department Work Phone: Start: 05-09-2023 End: 05-09-2023 ambulatory RAIL DETECTOR CAR OPERATOR-C Marilyn Gordon RAIL DETECTOR CAR OPERATOR Work Phone: [facility] Work Phone: Start: 05-09-2023 End: 05-09-2023 Patient encounter procedure RAIL DETECTOR CAR OPERATOR-C Marilyn Gordon RAIL DETECTOR CAR OPERATOR Work Phone: [facility]-Laboratory Work Phone: Start: 04-29-2023 End: 04-29-2023 Patient encounter procedure RAIL DETECTOR CAR OPERATOR-C Marilyn Gordon RAIL DETECTOR CAR OPERATOR Work Phone: [facility]-Laboratory Work Phone: Start: 04-22-2023 End: 04-22-2023 Patient encounter procedure RAIL DETECTOR CAR OPERATOR-C Marilyn Gordon RAIL DETECTOR CAR OPERATOR Work Phone: [facility] Work Phone: Start: 03-24-2023 End: 03-24-2023 Patient encounter procedure RAIL DETECTOR CAR OPERATOR-C Marilyn Gordon RAIL DETECTOR CAR OPERATOR Work Phone: [facility] Work Phone: Start: 09-19-2022 End: 09-19-2022 Patient encounter procedure RAIL DETECTOR CAR OPERATOR-C Marilyn Gordon RAIL DETECTOR CAR OPERATOR Work Phone: [facility] Work Phone: Start: 09-17-2022 End: 09-17-2022 ambulatory RAIL DETECTOR CAR OPERATOR-C Marilyn Gordon RAIL DETECTOR CAR OPERATOR Work Phone: [facility] Work Phone: Start: 09-17-2022 End: 09-17-2022 Patient encounter procedure RAIL DETECTOR CAR OPERATOR-C Marilyn Gordon RAIL DETECTOR CAR OPERATOR Work Phone: [facility]-Laboratory Work Phone: Start: 06-03-2022 End: 06-03-2022 ambulatory RAIL DETECTOR CAR OPERATOR-C Marilyn Gordon RAIL DETECTOR CAR OPERATOR Work Phone: [facility] Work Phone: Start: 06-03-2022 End: 06-03-2022 Patient encounter procedure RAIL DETECTOR CAR OPERATOR-C Marilyn Gordon RAIL DETECTOR CAR OPERATOR Work Phone: [facility] Start: 05-19-2022 End: 05-19-2022 Patient encounter procedure RAIL DETECTOR CAR OPERATOR-C Marilyn Gordon RAIL DETECTOR CAR OPERATOR Work Phone: [facility] Start: 05-08-2022 End: 05-08-2022 ambulatory RAIL DETECTOR CAR OPERATOR-C Marilyn Gordon RAIL DETECTOR CAR OPERATOR Work Phone: [facility] Work Phone: Start: 05-08-2022 End: 05-08-2022 Patient encounter procedure RAIL DETECTOR CAR OPERATOR-C Marilyn Gordon RAIL DETECTOR CAR OPERATOR Work Phone: [facility]-Laboratory Start: 04-28-2022 Non-patient / Non-visit RAIL DETECTOR CAR OPERATOR-C Marilyn Gordon RAIL DETECTOR CAR OPERATOR Work Phone: [facility] Start: 04-28-2022 End: 04-28-2022 Patient encounter procedure RAIL DETECTOR CAR OPERATOR-C Marilyn Gordon RAIL DETECTOR CAR OPERATOR Work Phone: [facility]-Cardiovascular Services Start: 03-06-2022 End: 03-06-2022 Patient encounter procedure RAIL DETECTOR CAR OPERATOR-C Marilyn Gordon RAIL DETECTOR CAR OPERATOR Work Phone: [facility] Start: 02-19-2022 End: 02-19-2022 Admission to same day surgery center RAIL DETECTOR CAR OPERATOR-C Marilyn Gordon RAIL DETECTOR CAR OPERATOR Work Phone: [facility] Start: 02-19-2022 End: 02-19-2022 ambulatory RAIL DETECTOR CAR OPERATOR-C Marilyn Gordon RAIL DETECTOR CAR OPERATOR Work Phone: [facility] Work Phone: Start: 02-19-2022 End: 02-19-2022 Non-patient / Non-visit RAIL DETECTOR CAR OPERATOR-C Marilyn Gordon RAIL DETECTOR CAR OPERATOR Work Phone: [facility] Start: 02-15-2022 End: 02-15-2022 ambulatory RAIL DETECTOR CAR OPERATOR-C Marilyn Gordon RAIL DETECTOR CAR OPERATOR Work Phone: [facility] Work Phone: Start: 02-15-2022 End: 02-15-2022 Patient encounter procedure RAIL DETECTOR CAR OPERATOR-C Marilyn Gordon RAIL DETECTOR CAR OPERATOR Work Phone: [facility]-Laboratory Start: 02-13-2022 Non-patient / Non-visit RAIL DETECTOR CAR OPERATOR-C Marilyn Gordon RAIL DETECTOR CAR OPERATOR Work Phone: [facility] [place] [facility] Start: 01-27-2022 Non-patient / Non-visit RAIL DETECTOR CAR OPERATOR-C Marilyn Gordon RAIL DETECTOR CAR OPERATOR Work Phone: [facility] [place] [facility] Start: 01-23-2022 Non-patient / Non-visit RAIL DETECTOR CAR OPERATOR-C Marilyn Gordon RAIL DETECTOR CAR OPERATOR Work Phone: [facility] Start: 01-23-2022 End: 01-23-2022 Patient encounter procedure RAIL DETECTOR CAR OPERATOR-C Marilyn Gordon RAIL DETECTOR CAR OPERATOR [facility] Start: 01-23-2022 Non-patient / Non-visit RAIL DETECTOR CAR OPERATOR-C Marilyn Gordon RAIL DETECTOR CAR OPERATOR Work Phone: [facility] Start: 01-13-2022 End: 01-13-2022 Patient encounter procedure RAIL DETECTOR CAR OPERATOR-C Marilyn Gordon RAIL DETECTOR CAR OPERATOR Work Phone: [facility] Start: 11-08-2021 End: 11-08-2021 Patient encounter procedure RAIL DETECTOR CAR OPERATOR-C Marilyn Gordon RAIL DETECTOR CAR OPERATOR Work Phone: [facility] Start: 10-22-2021 End: 10-22-2021 Patient encounter procedure [facility]-Laboratory Start: 09-19-2021 End: 10-06-2021 Discharged Recurring [facility] Start: 08-29-2021 End: 08-29-2021 Patient encounter procedure [facility]-Laboratory, Specimen Start: 08-26-2021 End: 09-05-2021 [facility] Start: 08-26-[facility]21 [facility] Start: 08-15-2021 End: 09-05-2021 [facility] Start: 08-15-2021 [facility] Start: 08-06-2021 End: 08-06-2021 Patient encounter procedure [facility]Laboratory Start: 06-20-2021 End: 07-06-2021 [facility] Start: 04-22-2021 End: 05-06-2021 Discharged Recurring [facility] Start: 03-18-2021 End: 03-18-2021 Patient encounter procedure [facility]-Laboratory Start: 01-15-2017 End: 01-20-2017 Ambulatory MARILYN GORDON Facility:[facility] Procedures Date Procedure Procedure Detail Performing Clinician Start: 10-21-2024 Hepatitis C antibody measurement Marilyn Gordon RAIL DETECTOR CAR OPERATOR-C Work Phone: Comment on above: Reactive: Presumptiv e evidence of antibodies to HCV. Follow CDC recommendations for supplemental testing.Non-Reactive: Antibodies to HCV were not detected; does not exclude the possibility of exposure to HCVReactive Results are presumptive evidence of antibodies to HCV. Follow CDC recommendations for supplemental testing.Order confirmation testing: HCV Quant by PCR testing - HCVPCR #[id number] Non Reactive: < 0.8 Equivocal: >/= 0.8 to < 1.0 Reactive: >/= 1.0The CDC requires that a reactive/equivocal HCV antibody result be sent out for confirmation. HCV Quant by PCR testing. Start: 10-21-2024 Prostate specific an tigen measurement Marilyn Gordon RAIL DETECTOR CAR OPERATOR-C Work Phone: Comment on above: This test was perfor med using the [employer] tPSA method. Measured values of a patient sample can vary depending on the testing procedure used. PSA values determined on patient samples by different testing procedures cannot be used interchangeably. If there is a change in PSA assays while monitoring therapy, sequential testing should be performed to confirm baseline values. Start: 10-21-2024 Serum inorganic phos phate measurement Marilyn Gordon RAIL DETECTOR CAR OPERATOR-C Work Phone: Start: 10-21-2024 Urnls dip stick/tabl et reagent auto microscopy Marilyn Gordon RAIL DETECTOR CAR OPERATOR-C Work Phone: Start: 06-23-2023 CT of abdomen and pe lvis without contrast RAIL DETECTOR CAR OPERATOR-C Marilyn Gordon RAIL DETECTOR CAR OPERATOR Work Phone: Start: 06-03-2022 MRI of brain with contrast RAIL DETECTOR CAR OPERATOR-C Marilyn Gordon RAIL DETECTOR CAR OPERATOR Work Phone: Start: 02-15-2022 Plain chest X-ray RAIL DETECTOR CAR OPERATOR-C Marilyn Gordon RAIL DETECTOR CAR OPERATOR Work Phone: Start: 01-23-2022 Radionuclide imaging of perfusion of myocardium under exercise stress RAIL DETECTOR CAR OPERATOR-C Marilyn Gordon RAIL DETECTOR CAR OPERATOR Work Phone: Start: 06-20-2021 End: 06-20-2021 Viral antigen assay Start: 04-22-2021 SARS-CoV-2 Antigen (Rapid) Viral antigen assay Plan of Treatment Date Care Activity Detail Author Start: 06-23-2023 [facility] Catheterization of l eft heart [facility] Work Phone: Patient Education ED Flank Pain, Uncertain Cause ED Pulmonary Nodule, Solitary [facility] Work Phone: Patient referral [facility] Work Phone: [facility] Immunizations Immunization Date Immunization Notes Care Provider Fa silvina 12-24-2023 influenza, seasonal, injectable, preservative free Marilyn Gordon RAIL DETECTOR CAR OPERATOR-C Work Phone: [facility] 01-12-2023 influenza, injectabl e, quadrivalent, preservative free RAIL DETECTOR CAR OPERATOR-C Marilyn Lorson RAIL DETECTOR CAR OPERATOR Work Phone: [facility] 12-16-2021 influenza, injectabl e, quadrivalent, preservative free RAIL DETECTOR CAR OPERATOR-C Marilyn Lorson RAIL DETECTOR CAR OPERATOR Work Phone: [facility] 12-16-2021 influenza, seasonal, injectable RAIL DETECTOR CAR OPERATOR-C Marilyn Lorson RAIL DETECTOR CAR OPERATOR Work Phone: [facility] 12-20-2020 influenza, injectabl e, quadrivalent, preservative free RAIL DETECTOR CAR OPERATOR-C Marilyn Lorson RAIL DETECTOR CAR OPERATOR Work Phone: [facility] 12-20-2020 influenza, seasonal, injectable [facility] 04-17-2020 Covnc (Moderna) [facility] 12-14-2019 influenza, injectabl e, quadrivalent, preservative free RAIL DETECTOR CAR OPERATOR-C Marilyn Lorson RAIL DETECTOR CAR OPERATOR Work Phone: [facility] 12-14-2019 influenza, seasonal, injectable [facility] 01-31-2019 influenza, injectabl e, quadrivalent, preservative free RAIL DETECTOR CAR OPERATOR-C Marilyn Gordon RAIL DETECTOR CAR OPERATOR Work Phone: [facility] 01-31-2019 influenza, seasonal, injectable [facility] 02-19-2015 influenza, injectabl e, quadrivalent, preservative free RAIL DETECTOR CAR OPERATOR-C Marilyn Gordon RAIL DETECTOR CAR OPERATOR Work Phone: [facility] 02-19-2015 influenza, seasonal, injectable [facility] 12-15-2013 influenza, injectabl e, quadrivalent, preservative free RAIL DETECTOR CAR OPERATOR-C Marilyn Gordon RAIL DETECTOR CAR OPERATOR Work Phone: [facility] 12-15-2013 influenza, seasonal, injectable [facility] 01-31-2013 Influenza virus vaccine [facility] Payers Date Payer Category Payer Self-pay [id number] 2024 Unknown [id number] 2017 Unknown [id number] .. [id number] Unknown [id number] .. [id number] Unknown [id number] Unknown [id number] Unknown [id number] Unknown [id number] Social History Date Type Detail Facility Start: 01-11-2021 End: 06-23-2023 Tobacco smoking status NHIS Unknown if ever smoked [facility] Start: 02-08-2019 Non-smoker [facility] Start: 1970 Sex Assigned At Male [facility] Start: 06-23-2023 Tobacco smoking stat us CAIS Never smoked tobacco (finding) [facility] Medical Equipment Procedure Code Equipment Code Equipment [...] 01-18-2019 Femoral vessel s uture implantation set [id number] FDA Start: 02-19-2022 TUBE,EAR T-TUBE FDA Start: [...] with BiPAP chronic Au roderick 2024 7:50am [facility] [employer] [facility] Work Phone: 1(302) 911-896304-16-2024 Discharge summary Author Jere Zhu [facility] June 23, 2023 9:02pm Note Date/Time June 23, 2023 6:0 4pm [facility] Medical Records Department [address] [place] [address] Emergency Department Summary 06/23/23 MR#: [id number] Acct: [id number] Name: KAMALA BRASWELL Jr. Rep #:[id number] [...] Denies nausea or vomiting. Denies constipation ordiarrhea. [facility] Medical History Abnormal stress test Chest [...] 5 mg PO DAILY #90 tabs 03/10/23 [Rx Last Taken Unknown] escitalopram oxalate 5 [...] Clarity Clear Urine pH 7.0 Ur Specific [place] 1.005 Urine Protein Negative Urine Glucose (UA) [...] Angel Luis Johnson MD at 20:10 EDT , Discharge Plan Triage Chief Complaint: Flank [...] Q5-15M PRN Patient Comments: TAKE 1 TABLET [id number] EVERY 5 MINUTES NEEDED FOR CHEST PAIN [...] Marilyn Gordon NP Referrals: Marilyn Gordon NP, RAIL DETECTOR CAR OPERATOR-C [Primary Care Provider] - Disposition Disposition: Home, Self Care What to do if you have Problems For any increased pain, shortness of breath, bleeding, nausea or vomiting, chestpain, or any unexpected problems, contact your Primary Care Provider. Call [facility] ([phone]) or report to the closest Emergency Room. Call 911 if necessary. 06/23/232101 <Electronically signed by Jere Zhu DO> Cosigner Signature (if applicable): CC: RAIL DETECTOR CAR OPERATOR-Emely Gordon ~ Signed [facility] Work Phone: 1([phone]) 469-390901-01-2020 Chief complaint+Reason for visit Narrative * Chief Complaint COVID-19/[facility] LAST SEEN 03/2019 NN PT CHEST TIGHTNESS CHEST TIGHTNESS CHEST PAIN/ABNORMAL STRESS TST EORDER- LABS AND XRAY Reason for Visit Chest pain Hyperlipidemia Hypertension [facility] Work Phone: 1(703) 954-747101-01-2020 Chief complaint+Reason for visit Narrative * Chief Complaint COVID-19/[facility] EM[facility] LAST SEEN 03/2019 NN PT CHEST TIGHTNESS CHEST TIGHTNESS CHEST PAIN/ABNORMAL STRESS TST EORDER- LABS AND XRAY CHEST PAIN/ABNORMAL STRESS TST Reason for Visit Chest pain Hyperlipidemia Hypertension [facility] Work Phone: Evaluation noteNo assessment information available [facility] Work Phone: Evaluation note* Diagnosis Onset Date Resolution Status Chest pain acute Hyperlipidemia chronic Hypertension [facility] Work Phone: Evaluation note* Diagnosis Onset Date Resolution Status Chest pain chronic Hyperlipidemia chronic Hypertension [facility] Work Phone: Evaluation note* Diagnosis Onset Date Resolution Status Chest pain chronic Hyperlipidemia chronic Hypertension chronic Exacerbation of gout acute [facility] Work Phone: Evaluation note* Diagnosis Onset Date Resolution Status Chest tightness chronic Coronary artery disease 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 planner paula Hyperlipidemia chronic Hypertension chronic CORBIN treated with BiPAP chron [facility] Work Phone: Evaluation note* Diagnosis Onset Date Resolution Status Hordeolum externum left lower eyelid acute Coronary artery disease merchandise planner paula Hyperlipidemia chronic Hypertension chronic Morbid obesity chronic CORBIN treated with BiPAP chron [facility] Work Phone: Reason for referral (narrative)No reason for referral [facility] Work Phone: Summary Purpose Family History No Family History Records Found Relationship Condition Age at Onset Recorded Date/T dona father Malignant neoplasm of colon Unknown mother Hypertension Unknown Disorder of thyroid Unknown Cerebrovascular accident (CVA) Unknown Myocardial infarction Unknown Advance Directives No Advanced Directives Records Found Advance Directive Response Recorded Date/ Time Advance Directives No February 08, 2019 8:58am Living Will No February 08 8:58am Power of Stacker And Sorter Operator No February 08, 2019 8:58am Advance Directive Response Recorded Date/ Time Advance Directives No February 08, 2019 7:58am Living Will No February 08 7:58am Power of Stacker And Sorter Operator No February 08, 2019 7:58am Advance Directive Response Recorded Date/ Time Advance Directives No February 7:35am Living Will No February 18 022 7:35am Power of Stacker And Sorter Operator No February 18, 2022 7:35am Advance Directive Response Recorded Date/ Time Advance Directives No February 8:35am Living Will No Prashant 13th, 2 022 8:35am Power of Stacker And Sorter Operator No February 18, 2022 8:35am Advance Directive Response Recorded Date/ Time Advance Directives No February 8:35am Living Will No June 23, 2023 6:27pm Power of Stacker And Sorter Operator No June 22 6:27pm Advance Directive [...] THROAT July 22, 2024 7:58am EMPLOYEE COVID/ [facility] July 22, 2024 8:09a m Chief Complaint Admit Date 2 ORDERING AKILAH July 14, 2024 7:14am COUGH, FEVER LAST NIGHT, SORE THROAT July 22, 2024 7:58am EMPLOYEE COVID/ [facility] July 22, 2024 8:09a m 1 Y FU October 20, 2024 7: 50am Reason for Visit Admit Date Acute upper respiratory infection July 222024 7:58am Coronary artery disease October 20 7:50am Hyperlipidemia October 20, 2024 7: 50am Hypertension October 20, 2024 7: 50am CORBIN treated with BiPAP October 20, 2024 7:50am Chief Complaint Admit Date 2 ORDERING AKILAH July 14, 2024 7:14am COUGH, FEVER LAST NIGHT, SORE THROAT July 22, 2024 7:58am EMPLOYEE COVID/ [facility] July 22, 2024 8:09a m 1 Y FU October 20, 2024 7: 50am EMPLOYEE LABS October 21, 2024 6: 43am Additional Source Comments (unrecognized sect ion and content) No Status Records FoundNo Status Records Found INFORMATION SOURCE (unrecogn ized section and content) DATE CREATED AUTHOR 09/01/2017 [facility] ([place]) DATE CREATED AUTHOR AUTHOR'S ORGANIZ ATION [facility] Goals (unrecognized section and content) Goals may [...] Active Member Role Status Dates Marilyn Gordon RAIL DETECTOR CAR OPERATOR, RAIL DETECTOR CAR OPERATOR-C Family Provider Active Marilyn Gordon RAIL DETECTOR CAR OPERATOR, RAIL DETECTOR CAR OPERATOR-C Primary Care Provider Active Team Status: Inactive Member Role Status Dates Marilyn Gordon RAIL DETECTOR CAR OPERATOR, RAIL DETECTOR CAR OPERATOR-C Primary Care Provider, Referri ng Provider Active Evelio Foss RAIL DETECTOR CAR OPERATOR, RAIL DETECTOR CAR OPERATOR-C Attending Provider Active Team Status: Active Member Role Status Dates Marilyn Gordon RAIL DETECTOR CAR OPERATOR, RAIL DETECTOR CAR OPERATOR-C Primary Care Provider Active Dr. Neftali Asencio MD Attending Provider Active Evelio Foss RAIL DETECTOR CAR OPERATOR, RAIL DETECTOR CAR OPERATOR-C Referring Provider Active Team Status: Active Member Role Status Dates Marilyn Gordon RAIL DETECTOR CAR OPERATOR, RAIL DETECTOR CAR OPERATOR-C Primary Care Provider Active Evelio Foss RAIL DETECTOR CAR OPERATOR, RAIL DETECTOR CAR OPERATOR-C Other Provider Active Dr. Dixie Arita MD Attending Provider Activ e Team Status: Active Member Role Status Lucas Gordon RAIL DETECTOR CAR OPERATOR, RAIL DETECTOR CAR OPERATOR-C Primary Care Provider Active Dr. Dixie Arita MD Other Provider Active Evelio Foss RAIL DETECTOR CAR OPERATOR, RAIL DETECTOR CAR OPERATOR-C Attending Provider Active Team Status: Active Member Role Status Lucas Gordon RAIL DETECTOR CAR OPERATOR, RAIL DETECTOR CAR OPERATOR-C Primary Care Provider Active Dr. Dixie Arita MD Attending Provider Activ e Evelio Foss RAIL DETECTOR CAR OPERATOR, RAIL DETECTOR CAR OPERATOR-C Referring Provider Active Team Status: Active Member Role Status Dates Marilyn Gordon RAIL DETECTOR CAR OPERATOR, RAIL DETECTOR CAR OPERATOR-C Primary Care Provider Active Dr. Dixie Arita MD Attending Provider, Refe rring Provider Active Team Status: Active Member Role Status Dates Marilyn Gordon RAIL DETECTOR CAR OPERATOR, RAIL DETECTOR CAR OPERATOR-C Primary Care Provider Active Dr. Neftali Asencio MD Attending Provider Active Team Status: Inactive Member Role Status Dates Marilyn Gordon RAIL DETECTOR CAR OPERATOR, RAIL DETECTOR CAR OPERATOR-C Primary Care Provider Active Evelio Foss RAIL DETECTOR CAR OPERATOR, RAIL DETECTOR CAR OPERATOR-C Attending Provider Active Team Status: Inactive Member Role Status Dates Marilyn Gordon RAIL DETECTOR CAR OPERATOR, RAIL DETECTOR CAR OPERATOR-C Primary Care Provider Active Dr. Dixie Arita MD Attending Provider, Refe rring Provider Active Team Status: Inactive Member Role Status Dates Marilyn Gordon RAIL DETECTOR CAR OPERATOR, RAIL DETECTOR CAR OPERATOR-C Primary Care Provider Active Evelio Foss RAIL DETECTOR CAR OPERATOR, RAIL DETECTOR CAR OPERATOR-C Attending Provider, Referring Pro vider Active Team Status: Inactive Member Role Status Lucas Marilyn Gordon RAIL DETECTOR CAR OPERATOR, RAIL DETECTOR CAR OPERATOR-C Primary Care Provider Active Dr. Dixie Arita MD Attending Provider Activ e Team Status: Inactive Member Role Status Dates Marilyn Gordon RAIL DETECTOR CAR OPERATOR, RAIL DETECTOR CAR OPERATOR-C Primary Care Pro vider, Attending Provider, Referring Provider Active Team Status: Active Member Role Status Lucas Marilyn Gordon RAIL DETECTOR CAR OPERATOR, RAIL DETECTOR CAR OPERATOR-C Primary Care Provider Active Dr. Neftali Asencio MD Attending Provider Active Dr. Dixie Arita MD Referring Provider Activ e Team Status: Inactive Member Role Status Dates Marilyn Gordon RAIL DETECTOR CAR OPERATOR, RAIL DETECTOR CAR OPERATOR-C Primary Care Provider, Referri ng Provider Active Robert Monroy PA, PA Attending Provider Active Team Status: Inactive Member Role Status Lucas Marilyn Gordon RAIL DETECTOR CAR OPERATOR, RAIL DETECTOR CAR OPERATOR-C Primary Care Provider, Referri ng Provider Active Dr. Mt Varela MD Attending Provider Active Team Status: Inactive Member Role Status Dates Marilyn Gordon RAIL DETECTOR CAR OPERATOR, RAIL DETECTOR CAR OPERATOR-C Primary Care Provider, Attendi ng Provider Active Dr. Mt Varela MD Referring Provider Active Team Status: Inactive Member Role Status Dates Marilyn Gordon RAIL DETECTOR CAR OPERATOR, RAIL DETECTOR CAR OPERATOR-C Primary Care Provider Active Dr. Jere Zhu DO Emergency Provider Active Team Status: Inactive Member Role Status Dates Marilyn Gordon RAIL DETECTOR CAR OPERATOR, RAIL DETECTOR CAR OPERATOR-C Primary Care Provider Active Start: July 14, [...] Active Member Role Status Dates Marilyn Gordon RAIL DETECTOR CAR OPERATOR, RAIL DETECTOR CAR OPERATOR-C Primary Care Provider Active Start: July 22, 2024 Marilyn Gordon RAIL DETECTOR CAR OPERATOR, RAIL DETECTOR CAR OPERATOR-C Referring Provider Active Start: July 22, 2024 Sylvain SEVILLA, PA Attending Provider Active Sta rt: July 22, 2024 Team Status: Inactive Member Role Status Dates Marilyn Gordon RAIL DETECTOR CAR OPERATOR, RAIL DETECTOR CAR OPERATOR-C Primary Care Provider Active Start: July 22, 2024 End: July 22, 2024 Marilyn Gordon RAIL DETECTOR CAR OPERATOR, RAIL DETECTOR CAR OPERATOR-C Referring Provider Active Start: July 22, 2024 End: July 22, 2024 Sylvain SEVILLA, PA Attending Provider Active Sta rt: July 22, 2024 End: July 22, 2024 Team Status: Active Member Role/Relationship Status Dates Marilyn Gordon RAIL DETECTOR CAR OPERATOR, RAIL DETECTOR CAR OPERATOR-C Family Provider Active Marilyn Gordon RAIL DETECTOR CAR OPERATOR, RAIL DETECTOR CAR OPERATOR-C Primary Care Provider Active Team Status: Inactive Member Role/Relationship Status Dates Marilyn Gordon RAIL DETECTOR CAR OPERATOR, RAIL DETECTOR CAR OPERATOR-C Primary Care Provider Active Start: July 14, [...] Inactive Member Role/Relationship Status Dates Marilyn Gordon RAIL DETECTOR CAR OPERATOR, RAIL DETECTOR CAR OPERATOR-C Primary Care Provider Active Start: July 22, 2024 End: July 22, 2024 Marilyn Gordon NP, RAIL DETECTOR CAR OPERATOR-C Referring Provider Active Start: July 22, 2024 End: July 22, 2024 DI Kamara Attending Provider Active Sta rt: July 22, 2024 End: July 22, 2024 Team Status: Inactive Member Role/Relationship Status Dates Marilyn Gordon NP, RAIL DETECTOR CAR OPERATOR-C Primary Care Provider Active Start: July 22, 2024 End: July 22, 2024 Marilyn Gordon NP, RAIL DETECTOR CAR OPERATOR-C Referring Provider Active Start: July 22, 2024 End: July 22, 2024 DI Kamara Attending Provider Active Sta rt: July 22, 2024 End: July 22, 2024 Team Status: Inactive Member Role/Relationship Status Dates Marilyn Gordon NP, RAIL DETECTOR CAR OPERATOR-C Primary Care Provider Active Start: October 20, 2024 End: October 20, 2024 Marilyn Gordon NP, RAIL DETECTOR CAR OPERATOR-C Referring Provider Active Start: October 20, 2024 End: October 20, 2024 Radha Mello RAIL DETECTOR CAR OPERATOR, RAIL DETECTOR CAR OPERATOR-C Attending Provider Active Start: October 20, 2024 End: October 20, 2024 Team Status: Inactive Member Role/Relationship Status Dates Marilyn Gordon NP, RAIL DETECTOR CAR OPERATOR-C Primary Care Provider Active Start: October 21, 2024 End: October 21, 2024 Marilyn Gordon NP, RAIL DETECTOR CAR OPERATOR-C Attending Provider Active Start: October 21, 2024 End: October 21, 2024 Marilyn Gordon NP, RAIL DETECTOR CAR OPERATOR-C Referring Provider Active Start: October 21, 2024 End: October 21, 2024 Team Status: Active Member Role/Relationship Status Dates Marilyn Gordon NP, RAIL DETECTOR CAR OPERATOR-C Primary Care Provider Active Start: October 21, 2024 Health Risk Assessment Attending Provider Active Start: October 21, 2024 Health Risk Assessment Referring Provider Active Start: October 21, 2024 FOR RECORDS PERTAINING TO PATIENTS WHO [...] BE BASED ON THE PRIMARY CLINICAL RECORDS. [facility]. provides no warranty or guarantee of the accuracy or completeness of information in this document.
[2024-11-16 10:38] LABS: Creatinine, Urine (random) 108.00 mg/dL (39.00-259.00); Microalbumin,Random Urine < 12.0 mg/L (<20 mg/L)
== END | disposition home or self-care (01) ==
PROVIDERS: PCP Nurse Practitioner Family; Referring Provider Nurse Practitioner Family; Visit Provider Nurse Practitioner Family
DX: I10 Essential (primary) hypertension (principal); R31.9 Hematuria, unspecified
CPT/HCPCS: 82043; 82570

== ENCOUNTER → 2024-11-23 | Outpatient (CLI) | payer OTHER, SELFPAY ==
--- NOTE | 2024-11-23 15:47 | US_ITS ---
PROCEDURE: OTHER UNLISTED US PROCEDURE 11/23/2024 REASON FOR EXAM: Right supraclavicular palpable abnormality. TECHNIQUE: Procedure Code: USOTH SOFT Modality: US Procedure: OTHER UNLISTED US PROCEDURE COMPARISON: None FINDINGS: The palpable lump corresponds to a normal vessel. US/Other Unlisted US Procedure IMPRESSION: The palpable abnormality corresponds to a normal vessel. Reading Location: [facility]
--- OUTSIDE RECORDS SUMMARY | 2024-11-23 21:22 | XMS RPT_ITS | CCD ---
Author Organization [facility] Care Team Providers Care Business Enterprise Officer Name Role Phone MARILYN GORDON Unavailable Unavailable MARILYN GORDON Unavailable Unavailable Shaheed FERRYBOAT PILOT, FERRYBOAT PILOT-C Marilyn Primary Care Provider Shaheed FERRYBOAT PILOT, FERRYBOAT PILOT-C Marilyn Referring Provider [phone] DI Rodriguez Attending Provider Roof FERRYBOAT PILOT, FERRYBOAT PILOT-C Evelio Elder Attending Provider Dr. Neftali Asencio Attending Provider [phone] Roof FERRYBOAT PILOT, FERRYBOAT PILOT-C Evelio Elder Referring Provider Roof FERRYBOAT PILOT, FERRYBOAT PILOT-C Evelio H Other Provider [phone] Dr. Dixie Arita Attending Provider [phone] Dr. Dixie Arita Other Provider Shaheed FERRYBOAT PILOT, FERRYBOAT PILOT-C Marilyn Primary Care Provider [phone] Dr. Dixie Arita Attending Provider [phone] Roof FERRYBOAT PILOT, FERRYBOAT PILOT-C Evelio Elder Referring Provider Roof FERRYBOAT PILOT, FERRYBOAT PILOT-C Evelio H Attending Provider Dr. Dixie Arita Referring Provider [phone] Pricilason FERRYBOAT PILOT, FERRYBOAT PILOT-C Marilyn Referring Provider [phone] Shaheed FERRYBOAT PILOT, FERRYBOAT PILOT-C Marilyn Primary Care Provider Dr. Dixie Arita Other Provider Roof FERRYBOAT PILOT, FERRYBOAT PILOT-C Evelio Elder Attending Provider Dr. Dixie Arita Attending Provider [phone] Dr. Dixie Arita Referring Provider [phone] L[place]on FERRYBOAT PILOT, FERRYBOAT PILOT-C Marilyn Referring Provider [phone] Dr. Neftali Asencio Attending Provider [phone] DI Mitchell Attending Provider [place] FERRYBOAT PILOT, FERRYBOAT PILOT-C Marilyn Primary Care Provider [place] FERRYBOAT PILOT, FERRYBOAT PILOT-C Marilyn Referring Provider [phone] Dr. [place] Attending Provider [phone] [place] FERRYBOAT PILOT, FERRYBOAT PILOT-C [place] Primary Care Provider [phone] [place] FERRYBOAT PILOT, FERRYBOAT PILOT-C Marilyn Referring Provider [phone] DI Mitchell Attending Provider Dr. [place] Attending Provider [phone] [place] FERRYBOAT PILOT, FERRYBOAT PILOT-C [place] Primary Care Provider [phone] [place] FERRYBOAT PILOT, FERRYBOAT PILOT-C Marilyn Referring Provider [phone] DI Mitchell Attending Provider Dr. [place] Attending Provider [phone] [place] FERRYBOAT PILOT-C, [place] Primary Care Provider [phone] Dr. Ruben Marie MD Attending Provider Dr. Ruben Marie MD Referring Provider Lyla Camacho Other Provider [phone] [place] FERRYBOAT PILOT-C, Marilyn Referring Provider [phone] Sylvain Rodriguez Attending Provider Riaz POPE-CRadha Attending Provider [phone] Shaheed FERRYBOAT PILOT-C, Marilyn Attending Provider [phone] Assessment, Health Risk Attending Provider Unava ilable Assessment, Health Risk Referring Provider Unava ilable Marilyn Gordon Attending Unavailable Marilyn Gordon Referring Unavailable Marilyn Gordon Primary Care Unavailable Marilyn Gordon Primary Care Unavailable Assessment, Health Risk Attending Unavaila ble Assessment, Health Risk Referring Unavaila ble Marilyn Gordon Referring Unavailable Marilyn Gordon Primary Care Unavailable Marilyn Gordon Attending Unavailable Marilyn Gordon Referring Unavailable Marilyn Gordon Attending Unavailable Marilyn Gordon Primary Care Unavailable Radha Mello NP Attending Unavailable Marilyn Gordon Referring Unavailable Marilyn Gordon Primary Care Unavailable Marilyn Gordon Referring Unavailable Marilyn Gordon Primary Care Unavailable Sylvain Rodriguez Attending Unavailable Marilyn Gordon Referring Unavailable Marilyn Gordon Primary Care Unavailable Sylvain Rodriguez Attending Unavailable Ruben Marie Attending Unavailable Ruben Marie Referring Unavailable Lyla Camacho Consulting Unavail able Marilyn Gordon Primary Care Unavailable Medications Current Medications Medication [...] mg tablet Discontinued 50 mg PO DAILY March 06, 2022 1:03pm April 22, 2023 [...] needed for Pain 10 3 0 April 21st, 2019 1:00am May 01, 2018 1:00am May 02, [...] mg tablet Discontinued 5 mg PO DAILY March 16, 2024 3:27pm June 17, 2024 [...] 2023 1:00am October 23, 2023 8:23am Ipratropium [place] 21 mcg (0.03 %) spray,non-aerosol (2 sources) Start: 07-22-2024 End: 10-20-2024 Ipratropium [place] 21 mcg (0.03 %) spray,non-aerosol Discontinued 2 [...] 7:55am Start: 05-14-2020 take 1 capsule by [facility] twice daily as needed for pain Naproxen [...] Discontinued 10 mg PO As Directed 30 May 19, 2022 12:00am September 19, 2022 [...] Coronary arteriosclerosis; Translations: [Atherosclerotic heart disease of [place] coronary artery without angina pectoris] 09-19-2022 Chronic [...] sources) Hypertensive disorder; Translations: [Essential (primary) hypertension] Onset: 11-16-2024 Chronic Genitourinary symptoms and ill-defined conditions (1 source) Hematuria, unspecified; Translations: [Hematuria, unspecified] Onset: 11-16-2024 Episodic Gout and other crystal arthropathies (10 sources) [...] other cardiovascular function study] 02-01-2019 Episodic Other skin disorders (1 source) Localized swelling, mass and lump, trunk; Translations: [Localized swelling, mass and lump, trunk] Onset: 11-18-2024 Episodic Other upper respiratory infections (4 sources) [...] Test Name Value Interpretation Reference Range Facility Microalb:Creat Ratio,Random URon 11-16-2024 Creatinine [Mass/Vol] 108.00 mg/dL Normal 39.00-259.00 [facility] Comment on above: Performed By: #### L 502.0250, L400.0001 ####[facility] [address] [place], [address] MALB:CREAT UNABLE TO CALCULATE Normal <30 mg/g CRE [facility] Comment on above: Performed By: #### L 502.0250, L400.0001 ####[facility] [address] [place], [address] MICROALBUMIN,UR < 12.0 Normal <20 mg/L [facility] Comment on above: Performed By: #### L 502.0250, L400.0001 ####[facility] [address] [place], [address] Urinalysis, Completeon 11-16 BACTERIA 0 SEEN Normal None Seen [facility] Comment on above: Order Comment: CLEAN CATCH Result Comment: WRON G Performed By: #### L 502.0250, L400.0001 #### [facility] [address] [place], [address] EPI,SQUAMOUS 0 SEEN Normal 0-5 [facility] Comment on above: Order Comment: CLEAN CATCH Result Comment: WRON G Performed By: #### L 502.0250, L400.0001 #### [facility] [address] [place], [address] Mucus Ql (Urine sed) 0 SEEN Normal [facility] Comment on above: Order Comment: CLEAN CATCH Result Comment: WRON G Performed By: #### L 502.0250, L400.0001 #### [facility] [address] [place], [address] RBC 0 SEEN Normal 0-5 [facility] Comment on above: Order Comment: CLEAN CATCH Result Comment: WRON G Performed By: #### L 502.0250, L400.0001 #### [facility] [address] [place], [address] WBC 0 SEEN Normal 0-5 [facility] Comment on above: Order Comment: CLEAN CATCH Result Comment: WRON G Performed By: #### L 502.0250, L400.0001 #### [facility] [address] [place], [address] BILIRUBIN URINE Normal Negative [facility] Comment on above: Order Comment: CLEAN CATCH Result Comment: WRON G Performed By: #### L 502.0250, L400.0001 #### [facility] [address] [place], [address] Clarity (U) Normal Clear [facility] Comment on above: Order Comment: CLEAN CATCH Result Comment: WRON G Performed By: #### L 502.0250, L400.0001 #### [facility] [address] [place], [address] Color (U) Normal Yellow [facility] Comment on above: Order Comment: CLEAN CATCH Result Comment: WRON G Performed By: #### L 502.0250, L400.0001 #### [facility] [address] [place], [address] GLUCOSE, UR Normal Normal [facility] Comment on above: Order Comment: CLEAN CATCH Result Comment: WRON G Performed By: #### L 502.0250, L400.0001 #### [facility] [address] [place], [address] KETONE UR Normal Negative [facility] Comment on above: Order Comment: CLEAN CATCH Result Comment: WRON G Performed By: #### L 502.0250, L400.0001 #### [facility] [address] [place], [address] LEUK ESTERASE Normal Negative [facility] Comment on above: Order Comment: CLEAN CATCH Result Comment: WRON G Performed By: #### L 502.0250, L400.0001 #### [facility] [address] [place], [address] Nitrite Ql (U) Normal Negative [facility] Comment on above: Order Comment: CLEAN CATCH Result Comment: WRON G Performed By: #### L 502.0250, L400.0001 #### [facility] [address] [place], [address] OCCULT BLOOD-UR Normal Negative [facility] Comment on above: Order Comment: CLEAN CATCH Result Comment: WRON G Performed By: #### L 502.0250, L400.0001 #### [facility] [address] [place], [address] pH UR Normal 5.0 - 8.0 [facility] Comment on above: Order Comment: CLEAN CATCH Result Comment: WRON G Performed By: #### L 502.0250, L400.0001 #### [facility] [address] [place], [address] PROT DIPSTX Normal Negative [facility] Comment on above: Order Comment: CLEAN CATCH Result Comment: WRON G Performed By: #### L 502.0250, L400.0001 #### [facility] [address] [place], [address] SP.GR. DIPSTX Normal 1.002-1.030 [facility] Comment on above: Order Comment: CLEAN CATCH Result Comment: WRON G Performed By: #### L 502.0250, L400.0001 #### [facility] [address] [place], [address] UR Preservative Normal [facility] Comment on above: Order Comment: CLEAN CATCH Result Comment: WRON G Performed By: #### L 502.0250, L400.0001 #### [facility] [address] [place], [address] UROBILI Normal Normal [facility] Comment on above: Order Comment: CLEAN CATCH Result Comment: WRON G Performed By: #### L 502.0250, L400.0001 #### [facility] [address] [place], [address] Absolute lymphocyte countOrd ered By: HEALTH ASSESSMENT on 10-21-2024 Lymphocytes Auto (Unsp spec) [#/Vol] 1.62 10*3/uL 0.83-4.51 [facility] Absolute neutrophil countOrd ered By: HEALTH ASSESSMENT on 10-21-2024 Neutrophils (Bld) [#/Vol] 5.7 10*3/uL 2.0-7.7 [facility] Absolute nucleated red blood cell countOrdered By: HEALTH ASSESSMENT on 10-21-2024 Nucleated RBC (Bld) [#/Vol] 0.00 10*3/uL 0-5 [facility] Anion gap in Serum or Plasma Ordered By: HEALTH ASSESSMENT on 10-21-2024 Anion gap [Moles/Vol] 10 mmol/L 07-[address] [facility] BUN/creatinine ratioOrdered By: HEALTH ASSESSMENT on 10-21-2024 Urea nitrogen/Creatinine [Mass ratio] 19.2 mg/mg 10- [facility] Bilirubin Test strip Ql (U)O rdered By: HEALTH ASSESSMENT on 08-15-2025 Bilirubin Ql (U) Negative Negative [facility] Bilirubin directOrdered By: HEALTH ASSESSMENT on 10-21-2024 Bilirubin.direct [Mass/Vol] 0.18 mg/dL 0.00-0.30 [facility] Bilirubin, totalOrdered By: HEALTH ASSESSMENT on 10-21-2024 Bilirubin [Mass/Vol] 0.38 mg/dL 0.00-1.30 [facility] Blood band neutrophil count as percentage of total leukocytesOrdered By: HEALTH ASSESSMENT on 10-21-2024 Band form neutrophils/100 WBC (Bld) 69.0 % 47-70 [facility] CBC, Employeeon 10-21-2024 Absolute Lymph 1.62 X10 3/uL Normal 0.83-4.51 [facility] Comment on above: Performed By: #### L 100.0200, L400.0100, L500.2900 #### [facility] [address] [place], [address] Absolute Neut 5.7 X10 3/uL Normal 2.0-7.7 [facility] Comment on above: Performed By: #### L 100.0200, L400.0100, L500.2900 #### [facility] [address] [place], [address] Basophils/100 WBC (Bld) 0.2 % Normal 0-1 [facility] Comment on above: Performed By: #### L 100.0200, L400.0100, L500.2900 #### [facility] [address] [place], [address] Eosinophils/100 WBC (Bld) 1.2 % Normal 0-5 [facility] Comment on above: Performed By: #### L 100.0200, L400.0100, L500.2900 #### [facility] [address] [place], [address] Erythrocyte distribution width (RBC) [Ratio] 13.4 % Normal 11.6-14.6 [facility] Comment on above: Performed By: #### L 100.0200, L400.0100, L500.2900 #### [facility] [address] [place], [address] Hematocrit (Bld) [Volume fraction] 40.6 % Normal 40-54 [facility] Comment on above: Performed By: #### L 100.0200, L400.0100, L500.2900 #### [facility] [address] [place], [address] Hemoglobin (Bld) [Mass/Vol] 14.0 g/dL Normal 13.0-16.5 [facility] Comment on above: Performed By: #### L 100.0200, L400.0100, L500.2900 #### [facility] [address] [place], [address] Lymphocytes/100 WBC (Bld) 19.7 % Normal 19-41 [facility] Comment on above: Performed By: #### L 100.0200, L400.0100, L500.2900 #### [facility] [address] [place], [address] MCH (RBC) [Entitic mass] 32.6 pg High 27.0-32.0 [facility] Comment on above: Performed By: #### L 100.0200, L400.0100, L500.2900 #### [facility] [address] [place], [address] MCHC (RBC) [Mass/Vol] 34.5 g/dL Normal 32-[address] [facility] Comment on above: Performed By: #### L 100.0200, L400.0100, L500.2900 #### [facility] [address] [place], [address] MCV (RBC) [Entitic vol] 94.6 fL High 80-94 [facility] Comment on above: Performed By: #### L 100.0200, L400.0100, L500.2900 #### [facility] [address] [place], [address] Monocytes/100 WBC (Bld) 9.0 % Normal 0-10 [facility] Comment on above: Performed By: #### L 100.0200, L400.0100, L500.2900 #### [facility] [address] [place], [address] Neutrophils/100 WBC (Bld) 69.0 % Normal 47-70 [facility] Comment on above: Performed By: #### L 100.0200, L400.0100, L500.2900 #### [facility] [address] [place], [address] NRBC # 0.00 10 3/uL Normal 0-5 [facility] Comment on above: Performed By: #### L 100.0200, L400.0100, L500.2900 #### [facility] [address] [place], [address] Nucleated RBC (Bld) [#/Vol] 0 10*3/uL Normal 0-5 [facility] Comment on above: Performed By: #### L 100.0200, L400.0100, L500.2900 #### [facility] [address] [place], [address] Platelet mean volume (Bld) [Entitic vol] 10.6 fL Normal 6.2-12.0 [facility] Comment on above: Performed By: #### L 100.0200, L400.0100, L500.2900 #### [facility] [address] [place], [address] Platelets (Bld) [#/Vol] 226 10*3/uL Normal 150-450 [facility] Comment on above: Performed By: #### L 100.0200, L400.0100, L500.2900 #### [facility] [address] [place], [address] RBC (Bld) [#/Vol] 4.29 10*6/uL Low 4.6-6.2 [facility] Comment on above: Performed By: #### L 100.0200, L400.0100, L500.2900 #### [facility] [address] [place], [address] RDW SD 46.9 fl High 35.1-43.9 [facility] Comment on above: Performed By: #### L 100.0200, L400.0100, L500.2900 #### [facility] [address] [place], [address] WBC (Bld) [#/Vol] 8.2 10*3/uL Normal 4.4-11.0 [facility] Comment on above: Performed By: #### L 100.0200, L400.0100, L500.2900 #### [facility] [address] [place], [address] Calculated very low density lipoprotein (VLDL) cholesterol measurementOrdered By: HEALTH ASSESSMENT on 10-21-2024 Calculated very low density lipoprotein (VLDL) cholesterol measurement 21 mg/dL 5-40 [facility] Carbon dioxide, total [Moles /volume] in Central venous bloodOrdered By: HEALTH ASSESSMENT on 10-21-2024 CO2 [Moles/Vol] 23.6 mmol/L 21.0-32.0 [facility] Chloride assayOrdered By: HE ALTH ASSESSMENT on 10-21-2024 Chloride [Moles/Vol] 104 mmol/L 98-108 [facility] Employee Profileon 5 CHOL:HDL 3.68 Normal [facility] Comment on above: Order Comment: SEND NIKKI CMP,LIPID Performed By: #### L 100.0200, L400.0100, L500.2900 #### [facility] [address] [place], [address] Cholesterol [Mass/Vol] 138 mg/dL Normal <=200 [facility] Comment on above: Order Comment: SEND NIKKI BARNETT,LIPID Result Comment: Chol esterol level, Desirable <200 mg/dL Borderline high cholesterol 200-239 mg/dL High cholesterol >=240 mg/dL Recommendations of the NCEP Adult Treatment Panel for the following risk-cutoff thresholds for the [place] population. Performed By: #### L 100.0200, L400.0100, L500.2900 #### [facility] [address] [place], [address] Cholesterol in HDL [Mass/Vol] 38 mg/dL Low [facility] Comment on above: Order Comment: SEND NIKKI BARNETT,LIPID Result Comment: Maira onal Cholesterol Education Program (NCEP) guidelines: <40 mg/dL: Low HDL-cholesterol (major risk factor for CHD) >= 60 mg/dL: High HDL-cholesterol (negative risk factor for CHD) HDL-cholesterol is affected by a number of factors, e.g. smoking, exercise, hormones, sex and age. Performed By: #### L 100.0200, L400.0100, L500.2900 #### [facility] [address] [place], [address] Cholesterol in LDL [Mass/Vol] 79 mg/dL Normal [facility] Comment on above: Order Comment: SEND NIKKI BARNETT,LIPID Result Comment: Bord iymnkl=542-165 mg/dL Higher Bbla=787 mg/dL or greater Friedwald Equation for LDL-C Performed By: #### L 100.0200, L400.0100, L500.2900 #### [facility] [address] [place], [address] Cholesterol in VLDL [Mass/Vol] 21 mg/dL Normal 5-40 [facility] Comment on above: Order Comment: SEND NIKKI BARNETT,LIPID Performed By: #### L 100.0200, L400.0100, L500.2900 #### [facility] [address] [place], [address] LDH 182 U/L Normal 87-241 [facility] Comment on above: Order Comment: SEND FERRYBOAT PILOT.ANDREEA BARNETT,LIPID Performed By: #### L 100.0200, L400.0100, L500.2900 #### [facility] [address] [place], [address] Phosphate [Mass/Vol] 3.2 mg/dL Normal 2.7-4.5 [facility] Comment on above: Order Comment: SEND FERRYBOAT PILOT.ANDREEA CMP,LIPID Performed By: #### L 100.0200, L400.0100, L500.2900 #### [facility] [address] [place], [address] Triglyceride [Mass/Vol] 106 mg/dL Normal [facility] Comment on above: Order Comment: SEND FERRYBOAT PILOT.ANDREEA CMP,LIPID Result Comment: The drugs N-Acetylcysteine and Metamizole may falsely depress this assay. Normal range: <150 mg/dL Borderline High: 150-199 mg/dL High: 200-499 mg/dL Very High: >500 mg/dL Performed By: #### L 100.0200, L400.0100, L500.2900 #### [facility] [address] [place], [address] URIC 8.8 mg/dL High 3.5-7.2 [facility] Comment on above: Order Comment: SEND FERRYBOAT PILOT.ANDREEA CMP,LIPID Result Comment: The drugs N-Acetylcysteine and Metamizole may falsely depress this assay. Performed By: #### L 100.0200, L400.0100, L500.2900 #### [facility] [address] [place], [address] Erythrocyte distribution wid th ratioOrdered By: HEALTH ASSESSMENT on 10-21-2024 Erythrocyte distribution width (RBC) [Ratio] 13.4 % 11.6-14.6 [facility] Erythrocyte distribution wid th standard deviationOrdered By: HEALTH ASSESSMENT on 10-21-2024 Erythrocyte distribution width (RBC) [Ratio] 46.9 fl High 35.1-43.9 [facility] Glomerular filtration rate ( GFR) estimation/1.73 sq m using serum, plasma, or whole bOrdered By: HEALTH ASSESSMENT on 10-21-2024 GFR/1.73 sq M.predicted among non-blacks MDRD (S/P/Bld) [Vol rate/Area] 78 mL/min/{1.73_m2} >60 [facility] Comment on above: mL/min/1.73m2 CKD-EP I Creatinine Equation (2020) Hematocrit Auto (Bld) [Volum e fraction]Ordered By: HEALTH ASSESSMENT on 10-21-2024 Hematocrit (Bld) [Volume fraction] 40.6 % 40-54 [facility] Hemoglobin A1con 10-21-2024 HbA1c (Bld) [Mass fraction] 5.8 % High <=5.6 [facility] Comment on above: Result Comment: Norm al < 5.7 % Prediabetic 5.7 - 6.4 % Diabetic >or= 6.5 % Please note range changes. Performed By: #### L 501.9985, L3890.6301, L501.9910 #### [facility] [address] [place], [place], [address] Hemoglobin A1c percentageOrd ered By: Marilyn Gordon on 10-21-2024 HbA1c (Bld) [Mass fraction] 5.8 % High <5.7 [facility] Comment on above: Normal < 5.7 % Predi abetic 5.7 - 6.4 % Diabetic >or= 6.5 % Please note range changes. Hemoglobin measurementOrdere d By: HEALTH ASSESSMENT on 10-21-2024 Hemoglobin (Bld) [Mass/Vol] 14.0 g/dL 13.0-16.5 [facility] Hepatitis C Antibodyon 10-21 Hepatitis C Ab Non-Reactive Normal Nonreactive [facility] Comment on above: Result Comment: Reac tive: Presumptive evidence of antibodies to HCV. Follow CDC recommendations for supplemental testing. Non-Reactive: Antibodies to HCV were not detected; does not exclude the possibility of exposure to HCV Reactive Results are presumptive evidence of antibodies to HCV. Follow CDC recommendations for supplemental testing. Order confirmation testing: HCV Quant by PCR testing - HCVPCR #[id number] Non Reactive: < 0.8 Equivocal: >/= 0.8 to < 1.0 Reactive: >/= 1.0 The CDC requires that a reactive/equivocal HCV antibody result be sent out for confirmation. HCV Quant by PCR testing. Performed By: #### L 501.9985, L3890.6301, L501.9910 #### [facility] [address] [place], [address] Ketones Test strip Ql (U)Ord ered By: HEALTH ASSESSMENT on 10-21-2024 Ketones Ql (U) Negative Negative [facility] LDL calc ser/plasOrdered By: HEALTH ASSESSMENT on 10-21-2024 Cholesterol in LDL [Mass/Vol] 79 mg/dL [facility] Comment on above: Ujwbbgawco=610-390 m g/dL & Higher Mcpk=345 mg/dL or greaterFriedwald Equation for LDL-C Laboratory - Chemistry and C hemistry - challengeOrdered By: HEALTH ASSESSMENT on 10-21-2024 AST [Catalytic activity/Vol] 29 U/L <38 [facility] Lactate dehydrogenase (LDH) measurementOrdered By: HEALTH ASSESSMENT on 10-21-2024 LDH [Catalytic activity/Vol] 182 U/L 87-241 [facility] MCV (mean corpuscular volume ) determinationOrdered By: HEALTH ASSESSMENT on 10-21-2024 MCV (RBC) [Entitic vol] 94.6 fL High 80-94 [facility] Mean corpuscular hemoglobin (MCH) determinationOrdered By: HEALTH ASSESSMENT on 10-21-2024 MCH (RBC) [Entitic mass] 32.6 pg High 27.0-32.0 [facility] Mean corpuscular hemoglobin concentration (MCHC) determinationOrdered By: HEALTH ASSESSMENT on 10-21-2024 MCHC (RBC) [Mass/Vol] 34.5 g/dL 32-[address] [facility] Mean platelet volume determi nationOrdered By: HEALTH ASSESSMENT on 10-21-2024 Platelet mean volume (Bld) [Entitic vol] 10.6 fL 6.2-12.0 [facility] Nitrite Test strip Ql (U)Ord ered By: HEALTH ASSESSMENT on 10-21-2024 Nitrite Ql (U) Negative Negative [facility] Nucleated red blood cell per centageOrdered By: HEALTH ASSESSMENT on 10-21-2024 Nucleated RBC/100 WBC (Bld) [Ratio] 0 % 0-5 [facility] PSA,Total - Annual Screenon 10-21-2024 PSA,TOT SCREEN 0.74 ng/mL Normal 0.02-4.00 [facility] Comment on above: Result Comment: This test was performed using the [employer] tPSA method. Measured values of a patient??sample can vary depending on the testing procedure used. PSA values determined on patient samples by different testing procedures cannot be used interchangeably. If there is a change in PSA assays while monitoring therapy, sequential testing should be performed to confirm baseline values. Performed By: #### L 501.9985, L3890.6301, L501.9910 #### [facility] [address] [place], [address] Platelet countOrdered By: HE ALTH ASSESSMENT on 10-21-2024 Platelets (Bld) [#/Vol] 226 10*3/uL 150-450 [facility] Potassium measurement (mass/ volume)Ordered By: HEALTH ASSESSMENT on 10-21-2024 Potassium (Unsp spec) [Mass/Vol] 4.5 mmol/L 3.3-5.1 [facility] Protein Test strip Ql (U)Ord ered By: HEALTH ASSESSMENT on 10-21-2024 Protein Ql (U) 15 mg/dl High Negative [facility] RBC Auto (Bld) [#/Vol]Ordere d By: HEALTH ASSESSMENT on 10-21-2024 RBC (Bld) [#/Vol] 4.29 10*6/uL Low 4.6-6.2 [facility] Screening total cholesterol/ high density lipoprotein (HDL) cholesterol ratioOrdered By: HEALTH ASSESSMENT on 10-21-2024 Cholesterol.total/Choles terol in HDL [Mass ratio] 3.68 {ratio} [facility] Serum creatinine measurement (mass/volume)Ordered By: HEALTH ASSESSMENT on 10-21-2024 Creatinine [Mass/Vol] 1.11 mg/dL 0.70-1.[address] [facility] Serum globulin measurementOr dered By: HEALTH ASSESSMENT on 10-21-2024 Globulin (S) [Mass/Vol] 2.7 g/dL 2.2-4.2 [facility] Serum glucose measurement (m ass/volume)Ordered By: HEALTH ASSESSMENT on 10-21-2024 Glucose [Mass/Vol] 114 mg/dL High 70-99 [facility] Serum or plasma alanine aguilera otransferase (ALT) measurementOrdered By: HEALTH ASSESSMENT on 10-21-2024 ALT [Catalytic activity/Vol] 28 U/L <47 [facility] Serum or plasma albumin danica urement (mass/volume)Ordered By: HEALTH ASSESSMENT on 10-21-2024 Albumin [Mass/Vol] 4.0 g/dL 3.5-5.0 [facility] Serum or plasma albumin/glob ulin mass ratioOrdered By: HEALTH ASSESSMENT on 10-21-2024 Albumin/Globulin [Mass ratio] 1.4 {ratio} 0.9-2.4 [facility] Serum or plasma alkaline medina sphatase measurementOrdered By: HEALTH ASSESSMENT on 10-21-2024 ALP [Catalytic activity/Vol] 102 U/L 40-129 [facility] Serum or plasma calcium danica urement (mass/volume)Ordered By: HEALTH ASSESSMENT on 10-21-2024 Calcium [Mass/Vol] 9.0 mg/dL 7.6-11.0 [facility] Serum or plasma cholesterol in HDL measurement (mass/volume)Ordered By: HEALTH ASSESSMENT on 10-21-2024 Cholesterol in HDL [Mass/Vol] 38 mg/dL Low >40 [facility] Comment on above: National Cholesterol Education Program (NCEP) guidelines:<40 mg/dL: Low HDL-cholesterol (major risk factor for CHD)>= 60 mg/dL: High HDL-cholesterol (negative risk factor for CHD)HDL-cholesterol is affected by a number of factors, e.g. smoking, exercise, hormones, sex and age. Serum or plasma cholesterol measurement (mass/volume)Ordered By: HEALTH ASSESSMENT on 10-21-2024 Cholesterol [Mass/Vol] 138 mg/dL <201 [facility] Comment on above: Cholesterol level, D esirable <200 mg/dLBorderline high cholesterol 200-239 mg/dLHigh cholesterol >=240 mg/dLRecommendations of the NCEP Adult Treatment Panel for the following risk-cutoff thresholds for the [place] population. Serum or plasma urea nitroge n measurement (mass/volume)Ordered By: HEALTH ASSESSMENT on 10-21-2024 Urea nitrogen [Mass/Vol] 21 mg/dL High 4-19 [facility] Serum or plasma uric acid me asurement (mass/volume)Ordered By: HEALTH ASSESSMENT on 10-21-2024 Urate [Mass/Vol] 8.8 mg/dL High 3.5-7.2 [facility] Comment on above: The drugs N-Acetylcy steine and Metamizole may falsely depress this assay. Sodium levelOrdered By: HEAL ASSESSMENT on 10-21-2024 Sodium [Moles/Vol] 138 mmol/L 133-145 [facility] Total proteinOrdered By: [facility] ASSESSMENT on 10-21-2024 Protein [Mass/Vol] 6.7 g/dL 5.9-8.4 [facility] Triglycerides measurementOrd ered By: HEALTH ASSESSMENT on 10-21-2024 Triglyceride [Mass/Vol] 106 mg/dL <199 [facility] Comment on above: The drugs N-Acetylcy steine and Metamizole may falsely depress this assay. Normal range: <150 mg/dLBorderline High: 150-199 mg/dLHigh: 200-499 mg/dLVery High: >500 mg/dL Urinalysis, Employeeon 10-21 Clarity (U) Clear Normal Clear [facility] Comment on above: Order Comment: Urine , Random Performed By: #### L 100.0200, L400.0100, L500.2900 #### [facility] [address] [place], [address] Color (U) Yellow Normal Yellow [facility] Comment on above: Order Comment: Urine , Random Performed By: #### L 100.0200, L400.0100, L500.2900 #### [facility] [address] [place], [address] BILIRUBIN URINE Negative Normal Negative [facility] Comment on above: Order Comment: Urine , Random Performed By: #### L 100.0200, L400.0100, L500.2900 #### [facility] [address] [place], [address] GLUCOSE, UR Normal Normal Normal [facility] Comment on above: Order Comment: Urine , Random Performed By: #### L 100.0200, L400.0100, L500.2900 #### [facility] [address] [place], [address] KETONE UR Negative Normal Negative [facility] Comment on above: Order Comment: Urine , Random Performed By: #### L 100.0200, L400.0100, L500.2900 #### [facility] [address] [place], [address] LEUK ESTERASE Negative Normal Negative [facility] Comment on above: Order Comment: Urine , Random Performed By: #### L 100.0200, L400.0100, L500.2900 #### [facility] [address] [place], [address] Nitrite Ql (U) Negative Normal Negative [facility] Comment on above: Order Comment: Urine , Random Performed By: #### L 100.0200, L400.0100, L500.2900 #### [facility] [address] [place], [address] OCCULT BLOOD-UR 10 /ul Abnormal Negative [facility] Comment on above: Order Comment: Urine , Random Performed By: #### L 100.0200, L400.0100, L500.2900 #### [facility] [address] [place], [address] pH UR 6.0 Normal 5.0 - 8.0 [facility] Comment on above: Order Comment: Urine , Random Performed By: #### L 100.0200, L400.0100, L500.2900 #### [facility] [address] [place], [address] PROT DIPSTX 15 mg/dl Abnormal Negative [facility] Comment on above: Order Comment: Urine , Random Performed By: #### L 100.0200, L400.0100, L500.2900 #### [facility] [address] [place], [address] SP.GR. DIPSTX 1.020 Normal 1.002-1.030 [facility] Comment on above: Order Comment: Urine , Random Performed By: #### L 100.0200, L400.0100, L500.2900 #### [facility] [address] [place], [address] UROBILI Normal Normal Normal [facility] Comment on above: Order Comment: Urine , Random Performed By: #### L 100.0200, L400.0100, L500.2900 #### [facility] [address] [place], [address] Urine clarityOrdered By: [facility] ASSESSMENT on 10-21-2024 Clarity (U) Clear Clear [facility] Urine color determinationOrd ered By: HEALTH ASSESSMENT on 10-21-2024 Color (U) Yellow Yellow [facility] Urine glucose detectionOrder ed By: HEALTH ASSESSMENT on 10-21-2024 Glucose Ql (U) Normal mg/dl Normal [facility] Urine leukocyte esterase det ection by dipstickOrdered By: HEALTH ASSESSMENT on 10-21-2024 Leukocyte esterase Test strip Ql (U) Negative Negative [facility] Urine pHOrdered By: HEALTH A SSESSMENT on 10-21-2024 pH (U) 6.0 [pH] 5.0 - 8.0 [facility] Urine specific gravity measu rementOrdered By: HEALTH ASSESSMENT on 10-21-2024 Specific gravity (U) [Rel density] 1.020 1.002-1.030 [facility] Urine urobilinogen measureme ntOrdered By: HEALTH ASSESSMENT on 10-21-2024 Urobilinogen Ql (U) Normal mg/dl Normal [facility] White blood cell (WBC) count Ordered By: HEALTH ASSESSMENT on 10-21-2024 WBC (Bld) [#/Vol] 8.2 10*3/uL 4.4-11.0 [facility] Cardiology Visit Reporton Cardiology Visit Report [facility] [address] [place] [address] OFFICE VISIT Date of Service: 10/20/24 MR#: [id number] Acct: [id number] Name: KAMALA BRASWELL Jr. Rep #: [id number] : 1970 Provider: FRANCISCO nunez Age/Sex: 54/M Location: [facility] Status: Signed HPI HPI History of Present [...] 97 Intake Visit Reasons: 1 Y FU Operations Recruiter Required: No Is patient in pain?: No [...] the past year?: No PFSH Medical History Hordeolum externum left lower eyelid [...] Negative for (more content not included)... Normal [facility] Office Visit Reporton 2024 Office Visit Report [facility] [address] [place] [address] OFFICE VISIT Date of Service: 07/22/24 MR#: [id number] Acct: [id number] Patient: KAMALA BRASWELL Jr. Rep #: [id number] : 1970 Provider: DI Mota Age/Sex: 54/M Location: [facility] Status: Signed Employer Purchased Covid Test Note: Patient here today for Covid Testing, requested by their Employer. [facility] Billing Sheet Covid Covid Swab-Rapid: Yes 10/06/24 1137 Date Sylvain Muñozignmatt Signature: Date (if applicable) CC: Normal [facility] - Microbiology an d Antimicrobial susceptibilityOrdered By: Sylvain Adler on 07-22-2024 SARS-CoV-2 (COVID-19) RNA RANDALL+probe Ql (Unsp spec) Not detected [facility] No Panel InformationOrdered By: Sylvain Adler on 07-22-2024 POC Nasal Swab Influenza A,B Not detected [facility] POC Nasal Swab RSV Not detected [facility] Office Visit Reporton 2024 Office Visit Report [facility] [address] [place] [address] OFFICE VISIT Date of Service: 07/22/24 MR#: [id number] Acct: [id number] Patient: KAMALA BRASWELL JrOctavia Rep #: [id number] : 1970 Provider: DI Mota Age/Sex: 53/M Location: [facility] Status: Signed Employer Purchased Covid Test Note: Patient here today for Covid Testing, requested by their Employer. Assessment and Plan Assessment and Plan Orders: Orders POC Cepheid Covid, FluAB, RSV Today 07/22/2442 Date Sylvain Arias Signature: Date (if applicable) CC: Normal [facility] Urgent Care Visit Reporton 0 07-22-2024 Urgent Care Visit Report [facility] [address], [address] [place] [address] OFFICE VISIT Date of Service: 07/22/24 MR#: [id number] Acct: [id number] Name: KAMALA BRASWELL Rep #: [id number] : 1970 Provider: DI Mota Age/Sex: 53/M Location: [facility] Status: Signed Intake Vital Signs 10/23/23 08:24 07/22/24 08:06 Height 5 ft 9 in BP 138/82 H Blood Pressure Location Lt brachial Position Sitting Respiration 17 Pulse 71 Pulse Source NIBP Temp 98.3 F Temp Source Oral Pulse Oximetry (%) 97 Oxygen Delivery Method room air Intake Visit Reasons: COUGH, FEVER LAST NIGHT, SORE THROAT Chief Complaint: cough, congestion, fever, ST Operations Recruiter Required: No Is patient in pain?: No Allergies No Known Allergies Allergy (Verified 07/22/24 08:07) Have you fallen in the past year?: No Nurse's Note: cough, congestion, fever, ST x less than 24 hours. [facility] Medical History Hordeolum externum left lower eyelid [...] Exam Const General: cooperative and well developed HENTN Head: normal to inspection and atraumatic Ears: [...] Arias Signature: Date (if applicable) CC: Normal [facility] L501.5101on 07-15-2024 GGTP 27 IU/L Normal 0-65 [facility] Comment on above: Order Comment: LIVER CMP TESTS OVERLAP-[facility]ED [facility] LIP[facility]-MCCONNELLOTHER TESTS-JABOUR Result Comment: Perf ormed at: - [facility] [address] [id number] [employer]: Ruben Madison PhD, Phone: [phone] Performed By: #### L 500.4100, L501.5101, L100.0500, L500.4050, L501.9310, L501.4700, L501.9520 ####[facility] [address] [place], [address] Anion gap in Serum or Plasma Ordered By: Lyla Bernard on 07-14-2024 Anion gap [Moles/Vol] 12 mmol/L 07-[address] [facility] BUN/creatinine ratioOrdered By: Lyla Bernard on 07-14-2024 Urea nitrogen/Creatinine [Mass ratio] 17.4 mg/mg - [facility] Bilirubin directOrdered By: Lyla Bernard on 07-14-2024 Bilirubin.direct [Mass/Vol] 0.19 mg/dL 0.00-0.30 [facility] Bilirubin, Directon 07-15-19 25 Bilirubin.direct [Mass/Vol] 0.19 mg/dL Normal 0.00-0.30 [facility] Comment on above: Order Comment: LIVER CMP [facility]S [facility]ON[facility]LLOTHER TESTS-JABOUR Performed By: #### L 500.4100, L501.5101, L100.0500, L500.4050, L501.9310, L501.4700, L501.9520 ####[facility] [address] [place], [address] Bilirubin, totalOrdered By: Lyla Bernard on 07-14-2024 Bilirubin [Mass/Vol] 0.49 mg/dL 0.00-1.30 [facility] CBC-Complete Blood Cnt No Di ffon 07-14-2024 Erythrocyte distribution width (RBC) [Ratio] 13.1 % Normal 11.6-14.6 [facility] Comment on above: Order Comment: LIVER CMP TESTS OVERLAP-ORDERED [facility] LIPID-MCCONNELLOTHER TESTS-JABOUR Performed By: #### L 500.4100, L501.5101, L100.0500, L500.4050, L501.9310, L501.4700, L501.9520 ####[facility] [address] [place], [address] Hematocrit (Bld) [Volume fraction] 40.8 % Normal 40-54 [facility] Comment on above: Order Comment: LIVER CMP TESTS OVERLAP-ORDERED [facility] LIPID-MCCONNELLOTHER TESTS-JABOUR Performed By: #### L 500.4100, L501.5101, L100.0500, L500.4050, L501.9310, L501.4700, L501.9520 ####[facility] [address] [facility] [place], [place], [phone](570) Hemoglobin (Bld) [Mass/Vol] 14.0 g/dL Normal 13.0-16.5 [facility] Comment on above: Order Comment: LIVER CMP TESTS OVERLAP-ORDERED [facility] LIPID-MCCONNELLOTHER TESTS-JABOUR Performed By: #### L 500.4100, L501.5101, L100.0500, L500.4050, L501.9310, L501.4700, L501.9520 ####[facility] [address] [place], [address] MCH (RBC) [Entitic mass] 31.7 pg Normal 27.0-32.0 [facility] Comment on above: Order Comment: LIVER CMP TESTS OVERLAP-ORDERED [facility] LIPID-MCCONNELLOTHER TESTS-JABOUR Performed By: #### L 500.4100, L501.5101, L100.0500, L500.4050, L501.9310, L501.4700, L501.9520 ####[facility] [address] [place], [address] MCHC (RBC) [Mass/Vol] 34.3 g/dL Normal 32-[address] [facility] Comment on above: Order Comment: LIVER CMP TESTS OVERLAP-ORDERED [facility] LIPID-MCCONNELLOTHER TESTS-JABOUR Performed By: #### L 500.4100, L501.5101, L100.0500, L500.4050, L501.9310, L501.4700, L501.9520 ####[facility] [address] [place], [address] MCV (RBC) [Entitic vol] 92.5 fL Normal 80-94 [facility] Comment on above: Order Comment: LIVER CMP TESTS OVERLAP-ORDERED [facility] LIPID-MCCONNELLOTHER TESTS-JABOUR Performed By: #### L 500.4100, L501.5101, L100.0500, L500.4050, L501.9310, L501.4700, L501.9520 ####[facility] [address] [place], [place], [phone] Platelet mean volume (Bld) [Entitic vol] 10.8 fL Normal 6.2-12.0 [facility] Comment on above: Order Comment: LIVER CMP TESTS OVERLAP-ORDERED [facility] LIPID-MCCONNELLOTHER TESTS-JABOUR Performed By: #### L 500.4100, L501.5101, L100.0500, L500.4050, L501.9310, L501.4700, L501.9520 ####[facility] [address] [place], [address] Platelets (Bld) [#/Vol] 268 10*3/uL Normal 150-450 [facility] Comment on above: Order Comment: LIVER CMP TESTS OVERLAP-ORDERED [facility] LIPID-MCCONNELLOTHER TESTS-JABOUR Performed By: #### L 500.4100, L501.5101, L100.0500, L500.4050, L501.9310, L501.4700, L501.9520 ####[facility] [address] [place], [place], [phone] RBC (Bld) [#/Vol] 4.41 10*6/uL Low 4.6-6.2 [facility] Comment on above: Order Comment: LIVER CMP TESTS OVERLAP-ORDERED [facility] LIPID-MCCONNELLOTHER TESTS-JABOUR Performed By: #### L 500.4100, L501.5101, L100.0500, L500.4050, L501.9310, L501.4700, L501.9520 ####[facility] [address] [place], [place], [phone] RDW SD 44.5 fl High 35.1-43.9 [facility] Comment on above: Order Comment: LIVER CMP TESTS OVERLAP-ORDERED [facility] LIPID-MCCONNELLOTHER TESTS-JABOUR Performed By: #### L 500.4100, L501.5101, L100.0500, L500.4050, L501.9310, L501.4700, L501.9520 ####[facility] [address] [place], [address] WBC (Bld) [#/Vol] 10.2 10*3/uL Normal 4.4-11.0 [facility] Comment on above: Order Comment: LIVER CMP TESTS OVERLAP-ORDERED [facility] LIPID-MCCONNELLOTHER TESTS-BOUR Performed By: #### L 500.4100, L501.5101, L100.0500, L500.4050, L501.9310, L501.4700, L501.9520 ####[facility] [address] [place], [place], [phone] Calculated very low density lipoprotein (VLDL) cholesterol measurementOrdered By: Lyla Bernard on 07-14-2024 Calculated very low density lipoprotein (VLDL) cholesterol measurement 31 mg/dL 5-40 [facility] Carbon dioxide, total [Moles /volume] in Central venous bloodOrdered By: Lyla Bernard on 07-14-2024 CO2 [Moles/Vol] 23.0 mmol/L 21.0-32.0 [facility] Chloride assayOrdered By: Genie Bernard on 07-14-2024 Chloride [Moles/Vol] 103 mmol/L 98-108 [facility] Comprehensive Metabolic Prof ilon 07-14-2024 Albumin [Mass/Vol] 3.9 g/dL Normal 3.5-5.0 [facility] Comment on above: Order Comment: LIVER CMP TESTS OVERLAP-[facility]ED [facility] LIPID-[facility]OTHER TESTS-JABOUR Performed By: #### L 500.4100, L501.5101, L100.0500, L500.4050, L501.9310, L501.4700, L501.9520 ####[facility] [address] [place], [address] Albumin/Globulin [Mass ratio] 1.4 {ratio} Normal 0.9-2.4 [facility] Comment on above: Order Comment: LIVER CMP TESTS [facility] LIP[facility]-M[facility]LLOTHER TESTS-JABOUR Performed By: #### L 500.4100, L501.5101, L100.0500, L500.4050, L501.9310, L501.4700, L501.9520 ####[facility] [address] [place], [address] ALK PHOS 102 U/L Normal 40-129 [facility] Comment on above: Order Comment: LIVER CMP TESTS [facility]LAP-[facility]ED [facility] LIP[facility]CCON[facility]LLOTHER TESTS-JABOUR Performed By: #### L 500.4100, L501.5101, L100.0500, L500.4050, L501.9310, L501.4700, L501.9520 ####[facility] [address] [place], [address] ALT [Catalytic activity/Vol] 29 U/L Normal <=46 [facility] Comment on above: Order Comment: LIVER CMP TESTS OVERLAP-[facility]ED [facility] LIP[facility]ON[facility]LLOTHER TESTS-JABOUR Performed By: #### L 500.4100, L501.5101, L100.0500, L500.4050, L501.9310, L501.4700, L501.9520 ####[facility] [address] [place], [address] AST [Catalytic activity/Vol] 26 U/L Normal <=37 [facility] Comment on above: Order Comment: LIVER CMP TESTS OVERLAP-ORDERED [facility] LIPID-MCCONNELLOTHER TESTS-JABOUR Performed By: #### L 500.4100, L501.5101, L100.0500, L500.4050, L501.9310, L501.4700, L501.9520 ####[facility] [address] [place], [address] Bilirubin [Mass/Vol] 0.49 mg/dL Normal 0.00-1.30 [facility] Comment on above: Order Comment: LIVER CMP TESTS [facility]LAP-[facility]ED [facility] LIPID-[facility]CCON[facility]LLOTHER TESTS-JABOUR Performed By: #### L 500.4100, L501.5101, L100.0500, L500.4050, L501.9310, L501.4700, L501.9520 ####[facility] [address] [place], [address] BUN/CRE 17.4 RATIO Normal 10-20 [facility] Comment on above: Order Comment: LIVER CMP TESTS OVERLAP-[facility]ED [facility] LIP[facility]LLOTHER TESTS-JABOUR Performed By: #### L 500.4100, L501.5101, L100.0500, L500.4050, L501.9310, L501.4700, L501.9520 ####[facility] [address] [place], [address] Calcium [Mass/Vol] 8.9 mg/dL Normal 7.6-11.0 [facility] Comment on above: Order Comment: LIVER CMP TESTS [facility]LAP-[facility]ED [facility] LIPID-[facility]CCON[facility]LLOTHER TESTS-JABOUR Performed By: #### L 500.4100, L501.5101, L100.0500, L500.4050, L501.9310, L501.4700, L501.9520 ####[facility] [address] [place], [address] Chloride [Moles/Vol] 103 mmol/L Normal 98-108 [facility] Comment on above: Order Comment: LIVER CMP TESTS OVERLAP-ORDERED [facility] LIPID-MCCONNELLOTHER TESTS-JABOUR Performed By: #### L 500.4100, L501.5101, L100.0500, L500.4050, L501.9310, L501.4700, L501.9520 ####[facility] [address] [place], [place], [phone](120) CO2 [Moles/Vol] 23.0 mmol/L Normal 21.0-32.0 [facility] Comment on above: Order Comment: LIVER CMP TESTS OVERLAP-ORDERED [facility] LIPID-MCCONNELLOTHER TESTS-JABOUR Performed By: #### L 500.4100, L501.5101, L100.0500, L500.4050, L501.9310, L501.4700, L501.9520 ####[facility] [address] [place], [place], [phone]) Creatinine [Mass/Vol] 1.14 mg/dL Normal 0.70-1.[address] [facility] Comment on above: Order Comment: LIVER CMP TESTS OVERLAP-ORDERED [facility] LIPID-MCCONNELLOTHER TESTS-JABOUR Performed By: #### L 500.4100, L501.5101, L100.0500, L500.4050, L501.9310, L501.4700, L501.9520 ####[facility] [address] [place], [address] GAP 12 Normal 5-15 [facility] Comment on above: Order Comment: LIVER CMP TESTS OVERLAP-ORDERED [facility] LIPID-MCCONNELLOTHER TESTS-JABOUR Performed By: #### L 500.4100, L501.5101, L100.0500, L500.4050, L501.9310, L501.4700, L501.9520 ####[facility] [address] [place], [address] GFR/1.73 sq M.predicted among non-blacks MDRD (S/P/Bld) [Vol rate/Area] 76 mL/min/{1.73_m2} Normal >60 [facility] Comment on above: Order Comment: LIVER CMP TESTS OVERLAP-ORDERED [facility] LIPID-MCCONNELLOTHER TESTS-JUANA Result Comment: mL/m in/1.73m2 CKD-EPI Creatinine Equation (2020) Performed By: #### L 500.4100, L501.5101, L100.0500, L500.4050, L501.9310, L501.4700, L501.9520 ####[facility] [address] [place], [address] Globulin (S) [Mass/Vol] 2.8 g/dL Normal 2.2-4.2 [facility] Comment on above: Order Comment: LIVER CMP TESTS OVERLAP-ORDERED [facility] LIPID-MCCONNELLOTHER TESTS-JUANA Performed By: #### L 500.4100, L501.5101, L100.0500, L500.4050, L501.9310, L501.4700, L501.9520 ####[facility] [address] [place], [address] Glucose [Mass/Vol] 101 mg/dL High 70-99 [facility] Comment on above: Order Comment: LIVER CMP TESTS OVERLAP-ORDERED [facility] LIPID-MCCONNELLOTHER TESTS-JUANA Performed By: #### L 500.4100, L501.5101, L100.0500, L500.4050, L501.9310, L501.4700, L501.9520 ####[facility] [address] [place], [address](302) Potassium [Moles/Vol] 4.5 mmol/L Normal 3.3-5.[address] [facility] Comment on above: Order Comment: LIVER CMP TESTS OVERLAP-ORDERED [facility] LIPID-MCCONNELLOTHER TESTS-JABOUR Performed By: #### L 500.4100, L501.5101, L100.0500, L500.4050, L501.9310, L501.4700, L501.9520 ####[facility] [address] [place], [address] Sodium [Moles/Vol] 138 mmol/L Normal 133-145 [facility] Comment on above: Order Comment: LIVER CMP TESTS OVERLAP-ORDERED [facility] LIPID-MCCONNELLOTHER TESTS-JABOUR Performed By: #### L 500.4100, L501.5101, L100.0500, L500.4050, L501.9310, L501.4700, L501.9520 ####[facility] [id number] [place], [place], [id number] T PROT 6.7 g/dL Normal 5.9-8.4 [facility] Comment on above: Order Comment: LIVER CMP TESTS OVERLAP-[facility] L[facility]ON[facility]LL[facility] TESTS-J[facility]OUR Performed By: #### L 500.4100, L501.5101, L100.0500, L500.4050, L501.9310, L501.4700, L501.9520 ####[facility] [id number] [place], [place], [id number] Urea nitrogen [Mass/Vol] 20 mg/dL High 4-19 [facility] Comment on above: Order Comment: LIVER CMP TESTS OVERLAP-ORDERED [facility] LIPID-MCCONNELLOTHER TESTS-JABOUR Performed By: #### L 500.4100, L501.5101, L100.0500, L500.4050, L501.9310, L501.4700, L501.9520 ####[facility] [id number] [place], [place], [id number] Erythrocyte distribution wid th ratioOrdered By: Lyla Bernard on 07-14-2024 Erythrocyte distribution width (RBC) [Ratio] 13.1 % 11.6-14.6 [facility] Erythrocyte distribution wid th standard deviationOrdered By: Lyla Bernard on 07-14-2024 Erythrocyte distribution width (RBC) [Ratio] 44.5 fl High 35.1-43.9 [facility] Gamma glutamyl transferase ( GGT) measurementOrdered By: Lyla Bernard on 07-14-2024 Amylase [Catalytic activity/Vol] 27 U/L 0-65 [facility] Comment on above: Performed at: [place] [id number] Director: Ruben Madison PhD, Phone: [phone] Glomerular filtration rate ( GFR) estimation/1.73 sq m using serum, plasma, or whole bOrdered By: Lyla Bernard on 07-14-2024 GFR/1.73 sq M.predicted among non-blacks MDRD (S/P/Bld) [Vol rate/Area] 76 mL/min/{1.73_m2} >60 [facility] Comment on above: mL/min/1.73m2 CKD-EP I Creatinine Equation (2020) Hematocrit Auto (Bld) [Volum e fraction]Ordered By: Lyla Bernard on 07-14-2024 Hematocrit (Bld) [Volume fraction] 40.8 % 40-54 [facility] Hemoglobin measurementOrdere d By: Lyla Bernard on 07-14-2024 Hemoglobin (Bld) [Mass/Vol] 14.0 g/dL 13.0-16.5 [facility] LDL calc ser/plasOrdered By: Lyla Bernard on 07-14-2024 Cholesterol in LDL [Mass/Vol] 88 mg/dL [facility] Comment on above: Wpufnynrgw=679-042 m g/dL & Higher Nipx=846 mg/dL or greater Laboratory - Chemistry and C hemistry - challengeOrdered By: Lyla Bernard on 07-14-2024 AST [Catalytic activity/Vol] 26 U/L <38 [facility] Lipid Profileon 07-14-2024 CHOL:HDL 4.92 Normal [facility] Comment on above: Order Comment: LIVER CMP TESTS OVERLAP-ORDERED [facility] LIPID-MCCONNELLOTHER TESTS-J[facility]OUR Performed By: #### L 500.4100, L501.5101, L100.0500, L500.4050, L501.9310, L501.4700, L501.9520 ####[facility] [address] [place], [address] Cholesterol [Mass/Vol] 149 mg/dL Normal <=200 [facility] Comment on above: Order Comment: LIVER CMP TESTS OVERLAP-ORDERED [facility] LIPID-MCCONNELLOTHER TESTS-JABOUR Result Comment: Chol esterol level, Desirable <200 mg/dL Borderline high cholesterol 200-239 mg/dL High cholesterol >=240 mg/dL Recommendations of the NCEP Adult Treatment Panel for the following risk-cutoff thresholds for the [place] population. Performed By: #### L 500.4100, L501.5101, L100.0500, L500.4050, L501.9310, L501.4700, L501.9520 ####[facility] [address] [place], [address] Cholesterol in HDL [Mass/Vol] 30 mg/dL Low [facility] Comment on above: Order Comment: LIVER CMP TESTS OVERLAP-ORDERED [facility] LIPID-MCCONNELLOTHER TESTS-JABOUR Result Comment: Maira onal Cholesterol Education Program (NCEP) guidelines: <40 mg/dL: Low HDL-cholesterol (major risk factor for CHD) >= 60 mg/dL: High HDL-cholesterol (negative risk factor for CHD) HDL-cholesterol is affected by a number of factors, e.g. smoking, exercise, hormones, sex and age. Performed By: #### L 500.4100, L501.5101, L100.0500, L500.4050, L501.9310, L501.4700, L501.9520 ####[facility] [address] [place], [address] Cholesterol in LDL [Mass/Vol] 88 mg/dL Normal [facility] Comment on above: Order Comment: LIVER CMP TESTS OVERLAP-ORDERED [facility] LIPID-MCCONNELLOTHER TESTS-[facility] Result Comment: Bord zmlzfx=504-554 mg/dL Higher Iteo=271 mg/dL or greater Performed By: #### L 500.4100, L501.5101, L100.0500, L500.4050, L501.9310, L501.4700, L501.9520 ####[facility] [address] [place], [place], [id number] Cholesterol in VLDL [Mass/Vol] 31 mg/dL Normal 5-40 [facility] Comment on above: Order Comment: LIVER CMP TESTS OVERLAP-ORDERED [facility] LIPID-MCCONNELLOTHER TESTS-MODESTOBOUR Performed By: #### L 500.4100, L501.5101, L100.0500, L500.4050, L501.9310, L501.4700, L501.9520 ####[facility] [address] [place], [address] Triglyceride [Mass/Vol] 153 mg/dL Normal [facility] Comment on above: Order Comment: LIVER CMP TESTS OVERLAP-ORDERED [facility] LIPID-MCCONNELLOTHER TESTS-[facility] Result Comment: The drugs N-Acetylcysteine and Metamizole may falsely depress this assay. Normal range: <150 mg/dL Borderline High: 150-199 mg/dL High: 200-499 mg/dL Very High: >500 mg/dL Performed By: #### L 500.4100, L501.5101, L100.0500, L500.4050, L501.9310, L501.4700, L501.9520 ####[facility] [address] [place], [address] MCV (mean corpuscular volume ) determinationOrdered By: Lyla Bernard on 07-14-2024 MCV (RBC) [Entitic vol] 92.5 fL 80-94 [facility] Mean corpuscular hemoglobin (MCH) determinationOrdered By: Lyla Bernard on 07-14-2024 MCH (RBC) [Entitic mass] 31.7 pg 27.0-32.0 [facility] Mean corpuscular hemoglobin concentration (MCHC) determinationOrdered By: Lyla Bernard on 07-14-2024 MCHC (RBC) [Mass/Vol] 34.3 g/dL 32-[address] [facility] Mean platelet volume determi nationOrdered By: Lyla Bernard on 07-14-2024 Platelet mean volume (Bld) [Entitic vol] 10.8 fL 6.2-12.0 [facility] Platelet countOrdered By: Genie Bernard on 07-14-2024 Platelets (Bld) [#/Vol] 268 10*3/uL 150-450 [facility] Potassium measurement (mass/ volume)Ordered By: Lyla Bernard on 07-14-2024 Potassium (Unsp spec) [Mass/Vol] 4.5 mmol/L 3.3-5.1 [facility] RBC Auto (Bld) [#/Vol]Ordere d By: Lyla Bernard on 07-14-2024 RBC (Bld) [#/Vol] 4.41 10*6/uL Low 4.6-6.2 [facility] Screening total cholesterol/ high density lipoprotein (HDL) cholesterol ratioOrdered By: Lyla Bernard on 07-14-2024 Cholesterol.total/Choles terol in HDL [Mass ratio] 4.92 {ratio} [facility] Serum creatinine measurement (mass/volume)Ordered By: Lyla Bernard on 07-14-2024 Creatinine [Mass/Vol] 1.14 mg/dL 0.70-1.[address] [facility] Serum globulin measurementOr dered By: Lyla Bernard on 07-14-2024 Globulin (S) [Mass/Vol] 2.8 g/dL 2.2-4.2 [facility] Serum glucose measurement (m ass/volume)Ordered By: Lyla Bernard on 07-14-2024 Glucose [Mass/Vol] 101 mg/dL High 70-99 [facility] Serum or plasma alanine aguilera otransferase (ALT) measurementOrdered By: Lyla Bernard on 07-14-2024 ALT [Catalytic activity/Vol] 29 U/L <47 [facility] Serum or plasma albumin danica urement (mass/volume)Ordered By: Lyla Bernard on 07-14-2024 Albumin [Mass/Vol] 3.9 g/dL 3.5-5.0 [facility] Serum or plasma albumin/glob ulin mass ratioOrdered By: Lyla Bernard on 07-14-2024 Albumin/Globulin [Mass ratio] 1.4 {ratio} 0.9-2.4 [facility] Serum or plasma alkaline medina sphatase measurementOrdered By: Lyla Bernard on 07-14-2024 ALP [Catalytic activity/Vol] 102 U/L 40-129 [facility] Serum or plasma calcium danica urement (mass/volume)Ordered By: Lyla Bernard on 07-14-2024 Calcium [Mass/Vol] 8.9 mg/dL 7.6-11.0 [facility] Serum or plasma cholesterol in HDL measurement (mass/volume)Ordered By: Lyla Bernard on 07-14-2024 Cholesterol in HDL [Mass/Vol] 30 mg/dL Low >40 [facility] Comment on above: National Cholesterol Education Program (NCEP) guidelines:<40 mg/dL: Low HDL-cholesterol (major risk factor for CHD)>= 60 mg/dL: High HDL-cholesterol (negative risk factor for CHD)HDL-cholesterol is affected by a number of factors, e.g. smoking, exercise, hormones, sex and age. Serum or plasma cholesterol measurement (mass/volume)Ordered By: Lyla Bernard on 07-14-2024 Cholesterol [Mass/Vol] 149 mg/dL <201 [facility] Comment on above: Cholesterol level, D esirable <200 mg/dLBorderline high cholesterol 200-239 mg/dLHigh cholesterol >=240 mg/dLRecommendations of the NCEP Adult Treatment Panel for the following risk-cutoff thresholds for the [place] population. Serum or plasma urea nitroge n measurement (mass/volume)Ordered By: Lyla Bernard on 07-14-2024 Urea nitrogen [Mass/Vol] 20 mg/dL High 4-19 [facility] Sodium levelOrdered By: Ishan Bernard on 07-14-2024 Sodium [Moles/Vol] 138 mmol/L 133-145 [facility] T4 Total, Thyroxinon 025 T4 [Mass/Vol] 6.6 ug/dL Normal 4.5-12.1 [facility] Comment on above: Order Comment: LIVER CMP TESTS OVERLAP-ORDERED [facility] LIPID-MCCONNELLOTHER TESTS-[facility] Performed By: #### L 500.4100, L501.5101, L100.0500, L500.4050, L501.9310, L501.4700, L501.9520 ####[facility] [address] [place], [place], [id number] TSH DL <= 0.005 mIU/L QnOrde red By: Lyla Bernard on 07-14-2024 TSH Qn 1.720 uIU/mL 0.300-4.200 [facility] Thyroid Stim Hormone (TSH)on 07-14-2024 TSH 1.720 uIU/mL Normal 0.300-4.200 [facility] Comment on above: Order Comment: LIVER CMP TESTS OVERLAP-ORDERED [facility] LIPID-MCCONNELLOTHER TESTS-[facility] Performed By: #### L 500.4100, L501.5101, L100.0500, L500.4050, L501.9310, L501.4700, L501.9520 ####[facility] [address] [place], [place], [id number] ThyroxineOrdered By: Bettie Bernard on 07-14-2024 T4 [Mass/Vol] 6.6 ug/dL 4.5-12.1 [facility] Total proteinOrdered By: Christopher Bernard on 07-14-2024 Protein [Mass/Vol] 6.7 g/dL 5.9-8.4 [facility] Triglycerides measurementOrd ered By: Lyla Bernard on 07-14-2024 Triglyceride [Mass/Vol] 153 mg/dL <199 [facility] Comment on above: The drugs N-Acetylcy steine and Metamizole may falsely depress this assay. Normal range: <150 mg/dLBorderline High: 150-199 mg/dLHigh: 200-499 mg/dLVery High: >500 mg/dL White blood cell (WBC) count Ordered By: Lyla Bernard on 07-14-2024 WBC (Bld) [#/Vol] 10.2 10*3/uL 4.4-11.0 [facility] Basophil percentageOrdered B y: Jere Zhu on 06-23-2023 Basophil percentage 0 SEEN /hpf 0-5 [facility] Bilirubin Test strip Ql (U)O rdered By: Jere Zhu on 06-23-2023 Bilirubin Ql (U) Negative Negative [facility] Ketones Test strip Ql (U)Ord ered By: Jere Zhu on 06-23-2023 Ketones Ql (U) Negative Negative [facility] Mucus LM Ql (Urine sed)Order ed By: Jere Zhu on 06-23-2023 Mucus Ql (Urine sed) 0 SEEN /hpf [facility] Nitrite Test strip Ql (U)Ord ered By: Jere Zhu on 06-23-2023 Nitrite Ql (U) Negative Negative [facility] No Panel InformationOrdered By: Jere Zhu on 06-23-2023 Urine RBC 0 SEEN /hpf 0-5 [facility] Protein Test strip Ql (U)Ord ered By: Jere Zhu on 06-23-2023 Protein Ql (U) Negative Negative [facility] Squamous epithelial cells de tection in urine sediment by light microscopyOrdered By: Jere Zhu on 06-23-2023 Epithelial cells.squamous LM Ql (Urine sed) 0 SEEN /hpf 0-5 [facility] Urine blood detectionOrdered By: Jere Zhu on 06-23-2023 RBC Ql (U) Negative Negative [facility] Urine clarityOrdered By: Kashif Zhu on 06-23-2023 Clarity (U) Clear Clear [facility] Urine color determinationOrd ered By: Jere Zhu on 06-23-2023 Color (U) Yellow Yellow [facility] Urine glucose detectionOrder ed By: Jere Zhu on 06-23-2023 Glucose Ql (U) Normal mg/dl Normal [facility] Urine leukocyte esterase det ection by dipstickOrdered By: Jere Zhu on 06-23-2023 Leukocyte esterase Test strip Ql (U) Negative Negative [facility] Urine pHOrdered By: Jere fish on 06-23-2023 pH (U) 7.0 [pH] 5.0 - 8.0 [facility] Urine sediment bacteria coun t by microscopy (number/high power field)Ordered By: Jere Zhu on 06-23-2023 Bacteria LM.HPF (Urine sed) [#/Area] 0 /[HPF] None Seen [facility] Urine specific gravity measu rementOrdered By: Jere Zhu on 06-23-2023 Specific gravity (U) [Rel density] 1.005 1.002-1.030 [facility] Urine urobilinogen measureme ntOrdered By: Jere Zhu on 06-23-2023 Urobilinogen Ql (U) Normal mg/dl Normal [facility] Basophil percentageOrdered B y: Marilyn Gordon on 05-09-2023 Basophil percentage < 10.0 IU/mL <[address] [facility] No Panel InformationOrdered By: Marilyn Gordon on 05-09-2023 Anti-Nuclear Antibody Screen Negative Negative [facility] Comment on above: Performed at: [email or web address] [place] [id number] Director: Ruben Madison PhD, Phone: [phone] Basophil percentageOrdered B y: [place] on 04-29-2023 Bilirubin [Mass/Vol] 0.50 mg/dL 0.20-1.00 [facility] Comment on above: For patients on eltr ombopag therapy, use of Dimension [place] TBIL is not recommended. Chloride [Moles/Vol] 108 mmol/L 98-107 [facility] Cholesterol [Mass/Vol] 134 mg/dL <200 [facility] Comment on above: <200 mg/dL Desirable 200-240 mg/dL Borderline >240 mg/dL High Risk Glucose [Mass/Vol] 107 mg/dL 74-106 [facility] Comment on above: Fasting Glucose resu lt from 100 to 125 mg/dL suggests IMPAIRED HOMEOSTASIS per A.D.A. criteria. Potassium [Moles/Vol] 3.9 mmol/L 3.5-5.[address] [facility] Protein [Mass/Vol] 6.9 g/dL 6.4-8.2 [facility] Sodium [Moles/Vol] 138 mmol/L 136-145 [facility] Triglyceride [Mass/Vol] 115 mg/dL <199 [facility] Comment on above: The drugs N-Acetylcy steine and Metamizole may falsely depress this assay.Serum Triglycerides Reference Interval Normal <150 mg/dL Borderline high 150 - 199 mg/dL High 200 - 499 mg/dL Very High > or = 500 mg/dL Laboratory - Chemistry and C hemistry - challengeOrdered By: [place] on 04-29-2023 Albumin/Globulin [Mass ratio] 1.0 {ratio} 0.9-2.4 [facility] ALP [Catalytic activity/Vol] 108 U/L 45-117 [facility] ALT [Catalytic activity/Vol] 36 U/L 16-61 [facility] Cholesterol in HDL [Mass/Vol] 39 mg/dL >40 [facility] Comment on above: The drugs N-Acetylcy steine and Metamizole may falsely depress this assay. Reference Range HDL <40 mg/dL Low HDL Cholesterol HDL >or= 60 mg/dL High HDL Cholesterol Cholesterol in LDL [Mass/Vol] 72 mg/dL 0-130 [facility] CO2 [Moles/Vol] 25.0 mmol/L 21.0-32.0 [facility] Globulin (S) [Mass/Vol] 3.5 g/dL 2.2-4.2 [facility] Urea nitrogen/Creatinine [Mass ratio] 15.5 mg/mg 10-20 [facility] No Panel InformationOrdered By: [place] on 04-29-2023 Urine Microalbumin/Creatinine Ratio 6.4 mg/g CRE <30 [facility] Estimated GFR (MDRD) Amer 90 mL/min >60 [facility] Comment on above: GFR Calc Estimated GFR (MDRD) Non-Af Amer 74 mL/min >60 [facility] Comment on above: Non- GFR Calc Prostate Specific Antigen Screen 0.77 ng/mL 0.00-4.00 [facility] Comment on above: This test was perfor med using the TPSA assay method for the[employer] chemistry system. Values obtained with differentassay methods cannot be used interchangably.When changing PSA assays in the course of monitoring apatient, additional sequential testing should be carriedout to confirm baseline values. VLDL Cholesterol 23 mg/dL 5-40 [facility] Serum or plasma calcium danica urement (mass/volume)Ordered By: [place] on 04-29-2023 Calcium [Mass/Vol] 8.6 mg/dL 8.5-10.1 [facility] Serum or plasma creatinine m easurement (mass/volume)Ordered By: [place] on 04-29-2023 Creatinine [Mass/Vol] 1.10 mg/dL 0.70-1.[address] [facility] Comment on above: The validity of the calculated GFR & GFRAA in patients over 70 years has not been determined. Clinical correlation is essential. Serum or plasma urea nitroge n measurement (mass/volume)Ordered By: [place] on 04-29-2023 Urea nitrogen [Mass/Vol] 17 mg/dL 7-18 [facility] Thin prep Papanicolaou smear with manual screeningOrdered By: [place] on 04-29-2023 Thin prep Papanicolaou smear with manual screening 5.3 mg/L NO RANGE EST. [facility] Thin prep Papanicolaou smear with manual screening 3.4 g/dL 3.2-5.0 [facility] Thin prep Papanicolaou smear with manual screening 20 U/L 15-37 [facility] Thin prep Papanicolaou smear with manual screening 5 5-15 [facility] Urine creatinine measurement (mass/volume)Ordered By: [place] on 04-29-2023 Creatinine (U) [Mass/Vol] 82.00 mg/dL NO RANGE EST. [facility] Whole blood hemoglobin A1c/t otal hemoglobin ratio (mass fraction)Ordered By: [place] on 04-29-2023 HbA1c (Bld) [Mass fraction] 5.9 % 3.8-5.6 [facility] Comment on above: Normal < 5.7 % Predi abetic 5.7 - 6.4 % Diabetic >or= 6.5 % Please note range changes. Basophil percentageOrdered B y: Marilyn Gordon on 09-17-2022 Bilirubin [Mass/Vol] 0.60 mg/dL 0.20-1.00 [facility] Comment on above: For patients on eltr ombopag therapy, use of Dimension [place] TBIL is not recommended. Chloride [Moles/Vol] 104 mmol/L 98-107 [facility] Cholesterol [Mass/Vol] 138 mg/dL <200 [facility] Comment on above: <200 mg/dL Desirable 200-240 mg/dL Borderline >240 mg/dL High Risk Glucose [Mass/Vol] 104 mg/dL 74-106 [facility] Comment on above: Fasting Glucose resu lt from 100 to 125 mg/dL suggests IMPAIRED HOMEOSTASIS per A.D.A. criteria. Potassium [Moles/Vol] 4.5 mmol/L 3.5-5.[address] [facility] Comment on above: Moderate Hemolysis, Result may be falsely increased. Protein [Mass/Vol] 7.2 g/dL 6.4-8.2 [facility] Sodium [Moles/Vol] 136 mmol/L 136-145 [facility] Triglyceride [Mass/Vol] 221 mg/dL <199 [facility] Comment on above: The drugs N-Acetylcy steine and Metamizole may falsely depress this assay.Serum Triglycerides Reference Interval Normal <150 mg/dL Borderline high 150 - 199 mg/dL High 200 - 499 mg/dL Very High > or = 500 mg/dL Laboratory - Chemistry and C hemistry - challengeOrdered By: Marilyn Gordon on 09-17-2022 ALP [Catalytic activity/Vol] 105 U/L 45-117 [facility] ALT [Catalytic activity/Vol] 40 U/L 16-61 [facility] CO2 [Moles/Vol] 29.0 mmol/L 21.0-32.0 [facility] Globulin (S) [Mass/Vol] 4.0 g/dL 2.2-4.2 [facility] Urea nitrogen/Creatinine [Mass ratio] 12.3 mg/mg 10-20 [facility] No Panel InformationOrdered By: Marilyn Gordon on 09-17-2022 Estimated GFR (MDRD) Amer 86 mL/min >60 [facility] Comment on above: GFR Calc Estimated GFR (MDRD) Non-Af Amer 71 mL/min >60 [facility] Comment on above: Non- GFR Calc Serum or plasma albumin danica urement (mass/volume)Ordered By: Marilyn Gordon on 09-17-2022 Albumin [Mass/Vol] 3.2 g/dL 3.2-5.0 [facility] Serum or plasma albumin/glob ulin mass ratioOrdered By: Marilyn Gordon on 09-17-2022 Albumin/Globulin [Mass ratio] 0.8 {ratio} 0.9-2.4 [facility] Serum or plasma calcium danica urement (mass/volume)Ordered By: Marilyn Gordon on 09-17-2022 Calcium [Mass/Vol] 8.5 mg/dL 8.5-10.1 [facility] Serum or plasma cholesterol in HDL measurement (mass/volume)Ordered By: Marilyn Gordon on 09-17-2022 Cholesterol in HDL [Mass/Vol] 37 mg/dL >40 [facility] Comment on above: The drugs N-Acetylcy steine and Metamizole may falsely depress this assay. Reference Range HDL <40 mg/dL Low HDL Cholesterol HDL >or= 60 mg/dL High HDL Cholesterol Serum or plasma cholesterol in VLDL measurement (mass/volume)Ordered By: Marilyn Gordon on 09-17-2022 Cholesterol in VLDL [Mass/Vol] 44 mg/dL 5-40 [facility] Serum or plasma creatinine m easurement (mass/volume)Ordered By: Marilyn Gordon on 09-17-2022 Creatinine [Mass/Vol] 1.14 mg/dL 0.70-1.[address] [facility] Comment on above: The validity of the calculated GFR & GFRAA in patients over 70 years has not been determined. Clinical correlation is essential. Serum or plasma low density lipoprotein (LDL) cholesterol measurement (mass/volume)Ordered By: Marilyn Gordon on 09-17-2022 Cholesterol in LDL [Mass/Vol] 57 mg/dL 0-130 [facility] Serum or plasma urea nitroge n measurement (mass/volume)Ordered By: Marilyn Gordon on 09-17-2022 Urea nitrogen [Mass/Vol] 14 mg/dL 7-18 [facility] Thin prep Papanicolaou smear with manual screeningOrdered By: Marilyn Gordon on 09-17-2022 Thin prep Papanicolaou smear with manual screening 49 U/L 15-37 [facility] Comment on above: Moderate Hemolysis, Result may be falsely increased. Thin prep Papanicolaou smear with manual screening 3 5-15 [facility] Thin prep Papanicolaou smear with manual screening < 5.0 mg/L NO RANGE EST. [facility] Whole blood hemoglobin A1c/t otal hemoglobin ratio (mass fraction)Ordered By: Marilyn Gordon on 09-17-2022 HbA1c (Bld) [Mass fraction] 5.7 % 3.8-5.6 [facility] Comment on above: Normal < 5.7 % Predi abetic 5.7 - 6.4 % Diabetic >or= 6.5 % Please note range changes. Basophil percentageOrdered B y: Marilyn Gordon on 05-08-2022 Bilirubin [Mass/Vol] 0.50 mg/dL 0.20-1.00 [facility] Comment on above: For patients on eltr ombopag therapy, use of Dimension [place] TBIL is not recommended. Chloride [Moles/Vol] 104 mmol/L 98-107 [facility] Cholesterol [Mass/Vol] 180 mg/dL <200 [facility] Comment on above: <200 mg/dL Desirable 200-240 mg/dL Borderline >240 mg/dL High Risk Glucose [Mass/Vol] 112 mg/dL 74-106 [facility] Comment on above: Fasting Glucose resu lt from 100 to 125 mg/dL suggests IMPAIRED HOMEOSTASIS per A.D.A. criteria. Potassium [Moles/Vol] 4.2 mmol/L 3.5-5.[address] [facility] Comment on above: Moderate Hemolysis, Result may be falsely increased. Protein [Mass/Vol] 7.5 g/dL 6.4-8.2 [facility] Sodium [Moles/Vol] 139 mmol/L 136-145 [facility] Triglyceride [Mass/Vol] 244 mg/dL <199 [facility] Comment on above: The drugs N-Acetylcy steine and Metamizole may falsely depress this assay.Serum Triglycerides Reference Interval Normal <150 mg/dL Borderline high 150 - 199 mg/dL High 200 - 499 mg/dL Very High > or = 500 mg/dL Laboratory - Chemistry and C hemistry - challengeOrdered By: Marilyn Gordon on 05-08-2022 ALP [Catalytic activity/Vol] 83 U/L 45-117 [facility] ALT [Catalytic activity/Vol] 50 U/L 16-61 [facility] CO2 [Moles/Vol] 28.0 mmol/L 21.0-32.0 [facility] Globulin (S) [Mass/Vol] 3.8 g/dL 2.2-4.2 [facility] Urea nitrogen/Creatinine [Mass ratio] 17.7 mg/mg 10-20 [facility] No Panel InformationOrdered By: Marilyn Gordon on 05-08-2022 Estimated GFR (MDRD) Amer 87 mL/min >60 [facility] Comment on above: GFR Calc Estimated GFR (MDRD) Non-Af Amer 72 mL/min >60 [facility] Comment on above: Non- GFR Calc Serum or plasma albumin danica urement (mass/volume)Ordered By: Marilyn Gordon on 05-08-2022 Albumin [Mass/Vol] 3.7 g/dL 3.2-5.0 [facility] Serum or plasma albumin/glob ulin mass ratioOrdered By: Marilyn Gordon on 05-08-2022 Albumin/Globulin [Mass ratio] 1.0 {ratio} 0.9-2.4 [facility] Serum or plasma calcium danica urement (mass/volume)Ordered By: Marilyn Gordon on 05-08-2022 Calcium [Mass/Vol] 9.1 mg/dL 8.5-10.1 [facility] Serum or plasma cholesterol in HDL measurement (mass/volume)Ordered By: Marilyn Gordon on 05-08-2022 Cholesterol in HDL [Mass/Vol] 38 mg/dL >40 [facility] Comment on above: The drugs N-Acetylcy steine and Metamizole may falsely depress this assay. Reference Range HDL <40 mg/dL Low HDL Cholesterol HDL >or= 60 mg/dL High HDL Cholesterol Serum or plasma cholesterol in VLDL measurement (mass/volume)Ordered By: Marilyn Gordon on 05-08-2022 Cholesterol in VLDL [Mass/Vol] 49 mg/dL 5-40 [facility] Serum or plasma creatinine m easurement (mass/volume)Ordered By: Marilyn Gordon on 05-08-2022 Creatinine [Mass/Vol] 1.13 mg/dL 0.70-1.[address] [facility] Comment on above: The validity of the calculated GFR & GFRAA in patients over 70 years has not been determined. Clinical correlation is essential. Serum or plasma low density lipoprotein (LDL) cholesterol measurement (mass/volume)Ordered By: Marilyn Gordon on 05-08-2022 Cholesterol in LDL [Mass/Vol] 93 mg/dL 0-130 [facility] Serum or plasma urea nitroge n measurement (mass/volume)Ordered By: Marilyn Gordon on 05-08-2022 Urea nitrogen [Mass/Vol] 20 mg/dL 7-18 [facility] Thin prep Papanicolaou smear with manual screeningOrdered By: Marilyn Gordon on 05-08-2022 Thin prep Papanicolaou smear with manual screening 40 U/L 15-37 [facility] Comment on above: Moderate Hemolysis, Result may be falsely increased. Thin prep Papanicolaou smear with manual screening 7 5-15 [facility] Whole blood hemoglobin A1c/t otal hemoglobin ratio (mass fraction)Ordered By: Marilyn Gordon on 05-08-2022 HbA1c (Bld) [Mass fraction] 5.3 % 3.8-5.6 [facility] Comment on above: Normal < 5.7 % Predi abetic 5.7 - 6.4 % Diabetic >or= 6.5 % Please note range changes. Absolute lymphocyte countOrd ered By: Evelio Foss on 02-15-2022 Lymphocytes Auto (Unsp spec) [#/Vol] 2.02 10*3/uL 0.83-4.51 [facility] Basophil percentageOrdered B y: Evelio Foss on 02-15-2022 Basophils/100 WBC (Bld) 0.3 % 0-1 [facility] Chloride [Moles/Vol] 107 mmol/L 98-107 [facility] Eosinophils/100 WBC (Bld) 1.4 % 0-5 [facility] Glucose [Mass/Vol] 103 mg/dL 74-106 [facility] Comment on above: Fasting Glucose resu lt from 100 to 125 mg/dL suggests IMPAIRED HOMEOSTASIS per A.D.A. criteria. Neutrophils (Bld) [#/Vol] 6.2 10*3/uL 2.0-7.7 [facility] Neutrophils/100 WBC (Bld) 67.2 % 47-70 [facility] Potassium [Moles/Vol] 3.9 mmol/L 3.5-5.[address] [facility] Sodium [Moles/Vol] 139 mmol/L 136-145 [facility] WBC (Bld) [#/Vol] 9.3 10*3/uL 4.4-11.0 [facility] Blood erythrocytes count (nu mber/volume)Ordered By: Evelio Foss on 02-15-2022 RBC (Bld) [#/Vol] 4.51 10*6/uL 4.6-6.2 [facility] Blood hemoglobin measurement (mass/volume)Ordered By: Evelio Foss on 02-15-2022 Hemoglobin (Bld) [Mass/Vol] 14.4 g/dL 13.0-16.5 [facility] Blood lymphocytes/100 leukoc ytesOrdered By: Evelio Foss on 02-15-2022 Lymphocytes/100 WBC (Bld) 21.8 % 19-41 [facility] Blood monocytes/100 leukocyt esOrdered By: Evelio Foss on 02-15-2022 Monocytes/100 WBC (Bld) 8.5 % 0-10 [facility] Blood platelet mean volumeOr dered By: Evelio Foss on 02-15-2022 Platelet mean volume (Bld) [Entitic vol] 11.2 fL 6.2-12.0 [facility] Determination of erythrocyte mean corpuscular volume (MCV)Ordered By: Evelio Foss on 02-15-2022 MCV (RBC) [Entitic vol] 95.1 fL 80-94 [facility] Hematocrit Auto (Bld) [Volum e fraction]Ordered By: Evelio Foss on 02-15-2022 Hematocrit (Bld) [Volume fraction] 42.9 % 40-54 [facility] Laboratory - Chemistry and C hemistry - challengeOrdered By: Evelio Foss on 02-15-2022 CO2 [Moles/Vol] 28.0 mmol/L 21.0-32.0 [facility] Urea nitrogen/Creatinine [Mass ratio] 12.4 mg/mg 10-20 [facility] Laboratory - Hematology and Cell countsOrdered By: Evelio Foss on 02-15-2022 Erythrocyte distribution width (RBC) [Entitic vol] 46.5 fL 35.1-43.9 [facility] Erythrocyte distribution width (RBC) [Ratio] 13.4 % 11.6-14.6 [facility] Immature granulocytes/100 WBC (Bld) 0.800 % 0.0-0.9 [facility] Comment on above: IG% - Immature Granu locytes (promyelocytes, myelocytes and metamyelocytes) > 1% indicates that a LEFT SHIFT is Present. MCH (RBC) [Entitic mass] 31.9 pg 27.0-32.0 [facility] Nucleated RBC/100 WBC (Bld) [Ratio] 0 % 0-5 [facility] MCHC Auto (RBC) [Mass/Vol]Or dered By: Evelio Foss on 02-15-2022 MCHC (RBC) [Mass/Vol] 33.6 g/dL 32-[address] [facility] No Panel InformationOrdered By: Evelio Foss on 02-15-2022 Estimated GFR (MDRD) Amer 88 mL/min >60 [facility] Comment on above: GFR Calc Estimated GFR (MDRD) Non-Af Amer 72 mL/min >60 [facility] Comment on above: Non- GFR Calc Platelets bldOrdered By: Feliz Foss on 02-15-2022 Platelets (Bld) [#/Vol] 238 10*3/uL 150-450 [facility] Serum or plasma calcium danica urement (mass/volume)Ordered By: Evelio Foss on 02-15-2022 Calcium [Mass/Vol] 9.2 mg/dL 8.5-10.1 [facility] Serum or plasma creatinine m easurement (mass/volume)Ordered By: Evelio Foss on 02-15-2022 Creatinine [Mass/Vol] 1.13 mg/dL 0.70-1.[address] [facility] Comment on above: The validity of the calculated GFR & GFRAA in patients over 70 years has not been determined. Clinical correlation is essential. Serum or plasma urea nitroge n measurement (mass/volume)Ordered By: Evelio Foss on 02-15-2022 Urea nitrogen [Mass/Vol] 14 mg/dL 7-18 [facility] Thin prep Papanicolaou smear with manual screeningOrdered By: Evelio Foss on 02-15-2022 Thin prep Papanicolaou smear with manual screening 4 5-15 [facility] Laboratory - Microbiology an d Antimicrobial susceptibilityon 11-08-2021 SARS-CoV-2 (COVID-19) RNA RANDALL+probe Ql (Unsp spec) Not detected [facility] Work Phone: Basophil percentageon 2021 Bilirubin [Mass/Vol] 0.40 mg/dL 0.20-1.00 [facility] Work Phone: Comment on above: For patients on eltr ombopag therapy, use of Dimension [place] TBIL is not recommended. Chloride [Moles/Vol] 106 mmol/L 98-107 [facility] Work Phone: Cholesterol [Mass/Vol] 212 mg/dL <200 [facility] Work Phone: Comment on above: <200 mg/dL Desirable 200-240 mg/dL Borderline >240 mg/dL High Risk Glucose [Mass/Vol] 98 mg/dL 74-106 [facility] Work Phone: Potassium [Moles/Vol] 4.2 mmol/L 3.5-5.[address] [facility] Work Phone: Protein [Mass/Vol] 7.6 g/dL 6.4-8.2 [facility] Work Phone: Sodium [Moles/Vol] 139 mmol/L 136-145 [facility] Work Phone: Triglyceride [Mass/Vol] 150 mg/dL <199 [facility] Work Phone: Comment on above: The drugs N-Acetylcy steine and Metamizole may falsely depress this assay.Serum Triglycerides Reference Interval Normal <150 mg/dL Borderline high 150 - 199 mg/dL High 200 - 499 mg/dL Very High > or = 500 mg/dL Laboratory - Chemistry and C hemistry - challengeon 10-22-2021 ALP [Catalytic activity/Vol] 77 U/L 45-117 [facility] Work Phone: ALT [Catalytic activity/Vol] 40 U/L 16-61 [facility] Work Phone: CO2 [Moles/Vol] 28.0 mmol/L 21.0-32.0 [facility] Work Phone: Globulin (S) [Mass/Vol] 4.1 g/dL 2.2-4.2 [facility] Work Phone: Urea nitrogen/Creatinine [Mass ratio] 13.7 mg/mg 10-20 [facility] Work Phone: No Panel Informationon 10-22 Estimated GFR (MDRD) Amer 79 mL/min >60 [facility] Work Phone: Comment on above: GFR Calc Estimated GFR (MDRD) Non-Af Amer 65 mL/min >60 [facility] Work Phone: Comment on above: Non- GFR Calc Prostate Specific Antigen Screen 0.79 ng/mL 0.00-4.00 [facility] Work Phone: Comment on above: This test was perfor med using the TPSA assay method for [email or web address] chemistry system. Values obtained with differentassay methods cannot be used interchangably.When changing PSA assays in the course of monitoring apatient, additional sequential testing should be carriedout to confirm baseline values. Serum or plasma albumin danica urement (mass/volume)on 10-22-2021 Albumin [Mass/Vol] 3.5 g/dL 3.2-5.0 [facility] Work Phone: Serum or plasma albumin/glob ulin mass ratioon 10-22-2021 Albumin/Globulin [Mass ratio] 0.9 {ratio} 0.9-2.4 [facility] Work Phone: Serum or plasma calcium danica urement (mass/volume)on 10-22-2021 Calcium [Mass/Vol] 9.1 mg/dL 8.5-10.1 [facility] Work Phone: Serum or plasma cholesterol in HDL measurement (mass/volume)on 10-22-2021 Cholesterol in HDL [Mass/Vol] 38 mg/dL >40 [facility] Work Phone: Comment on above: The drugs N-Acetylcy steine and Metamizole may falsely depress this assay. Reference Range HDL <40 mg/dL Low HDL Cholesterol HDL >or= 60 mg/dL High HDL Cholesterol Serum or plasma cholesterol in VLDL measurement (mass/volume)on 10-22-2021 Cholesterol in VLDL [Mass/Vol] 30 mg/dL 5-40 [facility] Work Phone: Serum or plasma creatinine m easurement (mass/volume)on 10-22-2021 Creatinine [Mass/Vol] 1.24 mg/dL 0.70-1.[address] [facility] Work Phone: Comment on above: The validity of the calculated GFR & GFRAA in patients over 70 years has not been determined. Clinical correlation is essential. Serum or plasma low density lipoprotein (LDL) cholesterol measurement (mass/volume)on 10-22-2021 Cholesterol in LDL [Mass/Vol] 144 mg/dL 0-130 [facility] Work Phone: Serum or plasma urea nitroge n measurement (mass/volume)on 10-22-2021 Urea nitrogen [Mass/Vol] 17 mg/dL 7-18 [facility] Work Phone: Thin prep Papanicolaou smear with manual screeningon 10-22-2021 Thin prep Papanicolaou smear with manual screening 27 U/L 15-37 [facility] Work Phone: Thin prep Papanicolaou smear with manual screening 5 5-15 [facility] Work Phone: Whole blood hemoglobin A1c/t otal hemoglobin ratio (mass fraction)on 08-06-2021 HbA1c (Bld) [Mass fraction] 5.4 % 3.8-5.6 [facility] Work Phone: Comment on above: Normal < 5.7 % Predi abetic 5.7 - 6.4 % Diabetic >or= 6.5 % Please note range changes. No Panel Informationon 04-22 SARS-CoV-2 Antigen (Rapid) [facility] Work Phone: Basophil percentageon 2021 Bilirubin [Mass/Vol] 0.30 mg/dL 0.20-1.00 [facility] Work Phone: Comment on above: For patients on eltr ombopag therapy, use of Dimension [place] TBIL is not recommended. Chloride [Moles/Vol] 105 mmol/L 98-107 [facility] Work Phone: Cholesterol [Mass/Vol] 228 mg/dL <200 [facility] Work Phone: Comment on above: <200 mg/dL Desirable 200-240 mg/dL Borderline >240 mg/dL High Risk Glucose [Mass/Vol] 93 mg/dL 74-106 [facility] Work Phone: Comment on above: Please note revised GLUCOSE reference range effective 2017. Potassium [Moles/Vol] 4.1 mmol/L 3.5-5.[address] [facility] Work Phone: Protein [Mass/Vol] 7.7 g/dL 6.4-8.2 [facility] Work Phone: Sodium [Moles/Vol] 140 mmol/L 136-145 [facility] Work Phone: Triglyceride [Mass/Vol] 136 mg/dL [facility] Work Phone: Comment on above: The drugs N-Acetylcy steine and Metamizole may falsely depress this assay.Serum Triglycerides Reference Interval Normal <150 mg/dL Borderline high 150 - 199 mg/dL High 200 - 499 mg/dL Very High > or = 500 mg/dL Laboratory - Chemistry and C hemistry - challengeon 03-18-2021 ALP [Catalytic activity/Vol] 79 U/L 45-117 [facility] Work Phone: ALT [Catalytic activity/Vol] 38 U/L 16-61 [facility] Work Phone: CO2 [Moles/Vol] 27.0 mmol/L 21.0-32.0 [facility] Work Phone: Globulin (S) [Mass/Vol] 4.2 g/dL 2.2-4.2 [facility] Work Phone: Urea nitrogen/Creatinine [Mass ratio] 13.0 mg/mg 10- [facility] Work Phone: No Panel Informationon 03-18 Estimated GFR (MDRD) Amer 93 mL/min >60 [facility] Work Phone: Comment on above: GFR Calc Estimated GFR (MDRD) Non-Af Amer 77 mL/min >60 [facility] Work Phone: Comment on above: Non- GFR Calc Serum or plasma albumin danica urement (mass/volume)on 03-18-2021 Albumin [Mass/Vol] 3.5 g/dL 3.2-5.0 [facility] Work Phone: Serum or plasma albumin/glob ulin mass ratioon 03-18-2021 Albumin/Globulin [Mass ratio] 0.8 {ratio} 0.9-2.4 [facility] Work Phone: Serum or plasma calcium danica urement (mass/volume)on 03-18-2021 Calcium [Mass/Vol] 8.7 mg/dL 8.5-10.1 [facility] Work Phone: Serum or plasma cholesterol in HDL measurement (mass/volume)on 03-18-2021 Cholesterol in HDL [Mass/Vol] 39 mg/dL [facility] Work Phone: Comment on above: The drugs N-Acetylcy steine and Metamizole may falsely depress this assay. Reference Range HDL <40 mg/dL Low HDL Cholesterol HDL >or= 60 mg/dL High HDL Cholesterol Serum or plasma cholesterol in VLDL measurement (mass/volume)on 03-18-2021 Cholesterol in VLDL [Mass/Vol] 27 mg/dL 5-40 [facility] Work Phone: Serum or plasma creatinine m easurement (mass/volume)on 03-18-2021 Creatinine [Mass/Vol] 1.08 mg/dL 0.70-1.[address] [facility] Work Phone: Comment on above: The validity of the calculated GFR & GFRAA in patients over 70 years has not been determined. Clinical correlation is essential. Serum or plasma low density lipoprotein (LDL) cholesterol measurement (mass/volume)on 03-18-2021 Cholesterol in LDL [Mass/Vol] 162 mg/dL 0-130 [facility] Work Phone: Serum or plasma urea nitroge n measurement (mass/volume)on 03-18-2021 Urea nitrogen [Mass/Vol] 14 mg/dL 7-18 [facility] Work Phone: Thin prep Papanicolaou smear with manual screeningon 03-18-2021 Thin prep Papanicolaou smear with manual screening 26 U/L 15-37 [facility] Work Phone: Thin prep Papanicolaou smear with manual screening 8 5-15 [facility] Work Phone: Whole blood hemoglobin A1c/t otal hemoglobin ratio (mass fraction)on 03-18-2021 HbA1c (Bld) [Mass fraction] 5.3 % 3.8-5.6 [facility] Work Phone: Comment on above: Normal < 5.7 % Predi abetic 5.7 - 6.4 % Diabetic >or= 6.5 % Please note range changes. .GFRon 01-15-2017 eGFR (non-black) mL/min/{1.73_m2} Normal [facility] ([place]) Comment on above: Result Comment: GFR Population [...] L IPID, CMP, GFR, TSH ####[address] [place], [place] [address] eGFR (non-black) 105 ml/min/1.73sqm Normal [facility] ([place]) Comment on above: Result Comment: GFR Population [...] L IPID, CMP, GFR, TSH ####[address] [place], [place] [address] CMPon 01-15-2017 Alanine aminotransferase (ALT) 41 U/L High 10-35 [facility] ([place]) Comment on above: Performed By: #### L IPID, CMP, GFR, TSH ####[address] [place], [place] [address] Albumin 4.1 G/dL Normal 3.5-5.0 [facility] ([place]) Comment on above: Performed By: #### L IPID, CMP, GFR, TSH ####[address] [place], [place] [address] Albumin/Globulin Ratio 1.5 {ratio} Normal 1.1-2.5 [facility] ([place]) Comment on above: Performed By: #### L IPID, CMP, GFR, TSH ####[address] [place], [place] [address] Alk Phos 76 IU/L Normal 40-135 [facility] ([place]) Comment on above: Performed By: #### L IPID, CMP, GFR, TSH ####[address] [place], [place] [address] Aspartate aminotransferase (AST) 27 U/L Normal 10-40 [facility] ([place]) Comment on above: Performed By: #### L IPID, CMP, GFR, TSH ####[address] [place], [place] [address] Bili Total 0.4 mg/dL Normal 0.2-1.0 [facility] ([place]) Comment on above: Performed By: #### L IPID, CMP, GFR, TSH ####[address] [place], [place] [address] BUN/Creatinine Ratio 14 ratio Normal 7-27 [facility] [place] Comment on above: Performed By: #### L IPID, CMP, GFR, TSH ####[address] [place], [place] [address] Calcium 9.2 mg/dL Normal 8.4-10.2 [facility] ([place]) Comment on above: Performed By: #### L IPID, CMP, GFR, TSH ####[id number] [place], [place] [address] Chloride 102 mmol/L Normal 98-107 [facility] ([place]) Comment on above: Performed By: #### L IPID, CMP, GFR, TSH ####[address] [place], [place] [address] CO2 27 mmol/L Normal 22-29 [facility] ([place]) Comment on above: Performed By: #### L IPID, CMP, GFR, TSH ####[address] [place], [place] [address] Creatinine 0.9 mg/dL Normal 0.6-1.2 [facility] ([place]) Comment on above: Performed By: #### L IPID, CMP, GFR, TSH ####[address] [place], [place] [address] Electrolyte Balance 9.0 mEq/L Normal [facility] ([place]) Comment on above: Performed By: #### L IPID, CMP, GFR, TSH ####[id number] [place], [place] [address] Globulin 2.8 G/dL Normal [facility] ([place]) Comment on above: Performed By: #### L IPID, CMP, GFR, TSH ####[address] [place], [place] [address] Glucose mass conc 103 mg/dL Normal 70-105 [facility] ([place]) Comment on above: Performed By: #### L IPID, CMP, GFR, TSH ####[address] [place], [place] [address] Potassium molar conc 4.5 mmol/L Normal 3.5-5.1 [facility] [place] Comment on above: Performed By: #### L IPID, CMP, GFR, TSH ####[address] [place], [place] [address] Protein 6.9 G/dL Normal 6.0-8.3 [facility] ([place]) Comment on above: Performed By: #### L IPID, CMP, GFR, TSH ####[address] [place], [place] [address] Sodium 138 mmol/L Normal 136-146 [facility] ([place]) Comment on above: Performed By: #### L IPID, CMP, GFR, TSH ####[address] [place], [place] [address] Urea nitrogen 13.0 mg/dL Normal 7.0-18.0 [facility] ([place]) Comment on above: Performed By: #### L IPID, CMP, GFR, TSH ####[address] [place], [place] [address] LIPIDon 01-15-2017 Cholesterol 227 mg/dL High 131-200 [facility] ([place]) Comment on above: Result Comment: Chol esterol Reference Interval:Less than 200 [id number] Borderline high [id number] and above High risk Performed By: #### L IPID, CMP, GFR, TSH ####[address] [place], [place] [address] HDL Cholesterol 40 mg/dL Normal 35-90 [facility] ([place]) Comment on above: Result Comment: HDL Reference Interval:Less than 40 Low - high risk60 or above Optimal/lowers risk Performed By: #### L IPID, CMP, GFR, TSH ####[address] [place], [place] [address] LDL Cholesterol 150 mg/dL High 0-130 [facility] ([place]) Comment on above: Result Comment: LDL is a calculated result and requires a 12-hr fast.LDL Reference Interval:Less than 100 [id number] Near or above [id number] Borderline high [id number] High [id number] and above Very high risk Performed By: #### L IPID, CMP, GFR, TSH ####[address] [place], [place] [address] Triglyceride 184 mg/dL High 40-150 [facility] ([place]) Comment on above: Result Comment: Trig lyceride Reference Interval:Less than 150 [id number] Borderline high [id number] High [id number] or higher Very high risk Performed By: #### L IPID, CMP, GFR, TSH ####[address] [place], [place] [address] TSHon 01-15-2017 Thyroid stimulating hormone (TSH) 1.34 mcIU/mL Normal 0.27-4.20 [facility] ([place]) Comment on above: Performed By: #### L IPID, CMP, GFR, TSH ####[id number] [place], [place] [address] Vital Signs Date Time Vital Sign Value Performing Clinician Ronit mcgee 10-19-2024 07:09040 Body height 175.26 cm Marilyn SINGH Work Phone: [facility] 10-19-2024 07:09-0400 Body mass index (BMI) [Ratio] 49.6 kg/m2 Marilyn SINGH Work Phone: [facility] 10-19-2024 07:09-0400 Body weight 152.4 kg Marilyn SINGH Work Phone: [facility] 10-19-2024 07:09-0400 Diastolic blood pressure 76 mm[Hg] Marilyn Gordon [employer] Work Phone: [facility] 10-19-2024 07:09-0400 Heart rate 64 /min Marilyn Gordon [employer] Work Phone: [facility] 10-19-2024 07:09-0400 Respiratory rate 20 /min Marilyn Gordon [employer] Work Phone: [facility] 10-19-2024 07:09-0400 SaO2% (BldA) [Mass fraction] 97 % Marilyn Gordon [employer] Work Phone: [facility] 10-19-2024 07:09-0400 Systolic blood pressure 122 mm[Hg] Marilyn Gordon [employer] Work Phone: [facility] 07-22-2024 08:06-0400 Body temperature 98.3 [degF] Marilyn Gordon [employer] Work Phone: [facility] 07-22-2024 08:06-0400 Diastolic blood pressure 82 mm[Hg] Marilyn Gordon [employer] Work Phone: [facility] 07-22-2024 08:06-0400 Heart rate 71 /min Marilyn Gordon [employer] Work Phone: [facility] 07-22-2024 08:06-0400 Respiratory rate 17 /min Marilyn Gordon [employer] Work Phone: [facility] 07-22-2024 08:06-0400 SaO2% (BldA) [Mass fraction] 97 % Marilyn Gordon [employer] Work Phone: [facility] 07-22-2024 08:06-0400 Systolic blood pressure 138 mm[Hg] Marilyn Gordon [employer] Work Phone: [facility] 06-23-2023 21:12-0400 Body temperature 97.9 [degF] [employer] Marilyn Gordon [employer] Work Phone: [facility] 06-23-2023 21:12-0400 Diastolic blood pressure 95 mm[Hg] [employer] Marilyn Gordon [employer] Work Phone: [facility] 06-23-2023 21:12-0400 Heart rate 62 /min [employer] Marilyn Gordon [employer] Work Phone: [facility] 06-23-2023 21:12-0400 Respiratory rate 16 /min [employer] Marilyn Gordon [employer] Work Phone: [facility] 06-23-2023 21:12-0400 SaO2% (BldA) [Mass fraction] 97 % [employer] Marilyn Gordon [employer] Work Phone: [facility] 06-23-2023 21:12-0400 Systolic blood pressure 170 mm[Hg] [employer] Marilyn Gordon [employer] Work Phone: [facility] 06-23-2023 19:27-0400 Body mass index (BMI) [Ratio] 53 kg/m2 [employer] Marilyn Gordon [employer] Work Phone: [facility] 06-23-2023 19:27-0400 Body weight 162.9 kg [employer] Marilyn Gordon [employer] Work Phone: [facility] 06-23-2023 17:17-0400 Body height 175.26 cm [employer] Marilyn Gordon [employer] Work Phone: [facility] 04-22-2023 08:46-0500 Body height 175.26 cm [employer] Marilyn Gordon [employer] Work Phone: [facility] 04-22-2023 08:46-0500 Body mass index (BMI) [Ratio] 50.5 kg/m2 [employer] Marilyn Gordon [employer] Work Phone: [facility] 04-22-2023 08:46-0500 Body weight 155.12 kg [employer] Marilyn Gordon [employer] Work Phone: [facility] 04-22-2023 08:46-0500 Diastolic blood pressure 88 mm[Hg] [employer] Marilyn Gordon [employer] Work Phone: [facility] 04-22-2023 08:46-0500 Heart rate 64 /min [employer] Marilyn Gordon [employer] Work Phone: [facility] 04-22-2023 08:46-0500 Respiratory rate 16 /min [employer] Marilyn Gordon [employer] Work Phone: [facility] 04-22-2023 08:46-0500 Systolic blood pressure 144 mm[Hg] [employer] Marilyn Gordon [employer] Work Phone: [facility] 03-24-2023 06:54-0500 Body temperature 98.3 [degF] [employer] Marilyn Gordon [employer] Work Phone: [facility] 03-24-2023 06:54-0500 Diastolic blood pressure 80 mm[Hg] [employer] Marilyn Gordon [employer] Work Phone: [facility] 03-24-2023 06:54-0500 Heart rate 78 /min [employer] Marilyn Gordon [employer] Work Phone: [facility] 03-24-2023 06:54-0500 Respiratory rate 14 /min [employer] Marilyn Gordon [employer] Work Phone: [facility] 03-24-2023 06:54-0500 SaO2% (BldA) [Mass fraction] 98 % [employer] Marilyn Gordon [employer] Work Phone: [facility] 03-24-2023 06:54-0500 Systolic blood pressure 140 mm[Hg] [employer] Marilyn Gordon [employer] Work Phone: [facility] 09-19-2022 14:36-0400 Body height 175.26 cm [facility] Marilyn Gordon [employer] Work Phone: [facility] 09-19-2022 14:36-0400 Body mass index (BMI) [Ratio] 48.9 kg/m2 [employer] [facility] Marilyn Gordon [employer] Work Phone: [facility] 09-19-2022 14:36-0400 Body weight 150.13 kg [employer] Marilyn Lorson [employer] Work Phone: [facility] 09-19-2022 14:36-0400 Diastolic blood pressure 94 mm[Hg] [facility] Marilyn Pricilason [employer] Work Phone: [facility] 09-19-2022 14:36-0400 Heart rate 68 /min [facility] Marilyn Pricilason [employer] Work Phone: [facility] 09-19-2022 14:36-0400 Respiratory rate 18 /min [facility] Marilyn Pricilason [employer] Work Phone: [facility] 09-19-2022 14:36-0400 Systolic blood pressure 150 mm[Hg] [facility] Marilyn Lorson [employer] Work Phone: [facility] 05-19-2022 16:48-0400 Body temperature 97.4 [degF] [facility] Marilyn Mcnultyson [employer] Work Phone: [facility] 05-19-2022 16:48-0400 Diastolic blood pressure 90 mm[Hg] [facility] Marilyn Mcnultyson [employer] Work Phone: [facility] 05-19-2022 16:48-0400 Heart rate 67 /min [facility] Marilyn Mcnultyson [employer] Work Phone: [facility] 05-19-2022 16:48-0400 Respiratory rate 18 /min [facility] Marilyn Mcnultyson [employer] Work Phone: [facility] 05-19-2022 16:48-0400 SaO2% (BldA) [Mass fraction] 98 % [facility] Marilyn Mcnultyson [employer] Work Phone: [facility] 05-19-2022 16:48-0400 Systolic blood pressure 140 mm[Hg] [facility] Marilyn Lorson [employer] Work Phone: [facility] 03-06-2022 11:22-0500 Body height 175.26 cm [employer] Marilyn Mcnultyson [employer] Work Phone: [facility] 03-06-2022 11:20-0500 Body mass index (BMI) [Ratio] 48.4 kg/m2 [employer] Marilyn Gordon [employer] Work Phone: [facility] 03-06-2022 11:20-0500 Body weight 148.77 kg [employer] Marilyn Gordon [employer] Work Phone: [facility] 03-06-2022 11:20-0500 Diastolic blood pressure 81 mm[Hg] [facility] Marilyn Gordon [employer] Work Phone: [facility] 03-06-2022 11:20-0500 Heart rate 72 /min [facility] Marilyn Gordon [employer] Work Phone: [facility] 03-06-2022 11:20-0500 Respiratory rate 18 /min [facility] Marilyn Gordon [employer] Work Phone: [facility] 03-06-2022 11:20-0500 SaO2% (BldA) [Mass fraction] 97 % [facility] Marilyn Gordon [employer] Work Phone: [facility] 03-06-2022 11:20-0500 Systolic blood pressure 133 mm[Hg] [facility] Marilyn Gordon [employer] Work Phone: [facility] 02-19-2022 09:01-0500 Body height 175.26 cm [employer] Marilyn Gordon [employer] Work Phone: [facility] Work Phone: 02-19-2022 09:01-0500 Body weight 147.41 kg [employer] Marilyn Gordon [employer] Work Phone: [facility] 02-18-2022 07:17-0500 Body mass index (BMI) [Ratio] 47.9 kg/m2 [facility] Marilyn Gordon [employer] Work Phone: [facility] 01-13-2022 15:05-0500 Body height 175.26 cm [employer] Marilyn Gordon [employer] Work Phone: [facility] Work Phone: 01-13-2022 15:05-0500 Body mass index (BMI) [Ratio] 48.1 kg/m2 [facility] [facility] Marilyn Gordon [employer] Work Phone: [facility] Work Phone: 01-13-2022 15:05-0500 Body weight 147.87 kg [employer] [facility] Marilyn Gordon [employer] Work Phone: [facility] Work Phone: 01-13-2022 15:05-0500 Diastolic blood pressure 92 mm[Hg] [facility] [facility] Marilyn Gordon [employer] Work Phone: [facility] Work Phone: 01-13-2022 15:05-0500 Heart rate 86 /min [facility] Marilyn Gordon [employer] Work Phone: [facility] Work Phone: 01-13-2022 15:05-0500 Respiratory rate 16 /min [facility] Marilyn Gordon [employer] Work Phone: [facility] Work Phone: 01-13-2022 15:05-0500 Systolic blood pressure 148 mm[Hg] [facility] Marilyn Gordon [employer] Work Phone: [facility] Work Phone: 11-08-2021 06:51-0400 Body mass index (BMI) [Ratio] 46 kg/m2 [facility] [facility] Marilyn Gordon [employer] Work Phone: [facility] Work Phone: 11-08-2021 06:51-0400 Body temperature 98.7 [degF] [facility] [facility] Marilyn Gordon [employer] Work Phone: [facility] Work Phone: 11-08-2021 06:51-0400 Body weight 142.65 kg [employer] Marilyn Gordon [employer] Work Phone: [facility] Work Phone: 11-08-2021 06:51-0400 Diastolic blood pressure 80 mm[Hg] [facility] Marilyn Gordon [employer] Work Phone: [facility] Work Phone: 11-08-2021 06:51-0400 Heart rate 76 /min [employer] Marilyn Gordon [employer] Work Phone: [facility] Work Phone: 11-08-2021 06:51-0400 Respiratory rate 18 /min [facility] Marilyn Gordon [employer] Work Phone: [facility] Work Phone: 11-08-2021 06:51-0400 Systolic blood pressure 118 mm[Hg] [facility] Marilyn Gordon [employer] Work Phone: [facility] Work Phone: Encounters Encounter Date Encounter Type Care Provider Facility Start: 11-23-2024 ambulatory Marilyn Gordon Facility :[facility] Start: 11-16-2024 ambulatory Marilyn Gordon Facility :[facility] Start: 10-21-2024 Registered Referred [facility] Start: 10-21-2024 End: 10-21-2024 ambulatory Marilyn Gordon [facility] Work Phone: -Laboratory Start: 10-21-2024 End: 10-21-2024 Patient encounter procedure Marilyn Gordon [facility] -Laboratory Work Phone: Start: 10-20-2024 End: 10-20-2024 Patient encounter procedure Radha Mello [facility] -[facility] Work Phone: Start: 10-20-2024 End: 10-21-2024 ambulatory Marilyn Gordon [facility] Work Phone: -[facility] Start: 07-22-2024 End: 07-22-2024 Patient encounter procedure Sylvain Adler [facility] Work Phone: Start: 07-22-2024 End: 07-22-2024 ambulatory Marilyn Gordon [facility] Work Phone: [facility] Work Phone: Start: 07-14-2024 End: 07-14-2024 ambulatory Marilyn Gordon [facility] Work Phone: [facility] Work Phone: Start: 07-14-2024 End: 07-14-[address] Ruben Marie MD -Laboratory, [place] Work Phone: Start: 07-14-2024 End: 07-14-2024 ambulatory Ruben Marie Facility:[facility] Start: 06-23-2023 End: 06-23-2023 Emergency department patient visit [facility] Marilyn Gordon [employer] Work Phone: [facility]-Emergency Department Work Phone: Start: 05-09-2023 End: 05-09-2023 ambulatory [facility] Marilyn Gordon [employer] Work Phone: [facility] Work Phone: Start: 05-09-2023 End: 05-09-2023 Patient encounter procedure [facility] [facility] Marilyn Gordon [employer] Work Phone: [facility]-Laboratory Work Phone: Start: 04-29-2023 End: 04-29-2023 Patient encounter procedure [facility] Marilyn Gordon [employer] Work Phone: [facility] Work Phone: Start: 04-22-2023 End: 04-22-2023 Patient encounter procedure [facility] Marilyn Gordon [employer] Work Phone: [facility] Work Phone: Start: 03-24-2023 End: 03-24-2023 Patient encounter procedure [facility] [facility] Marilyn Gordon [employer] Work Phone: [facility] Work Phone: Start: 09-19-2022 End: 09-19-2022 Patient encounter procedure [facility] Marilyn Gordon [employer] Work Phone: [facility] Work Phone: Start: 09-17-2022 End: 09-17-2022 ambulatory [employer] Marilyn Gordon [employer] Work Phone: [facility] Work Phone: Start: 09-17-2022 End: 09-17-2022 Patient encounter procedure [facility] Marilyn Gordon [employer] Work Phone: [facility]-Laboratory Work Phone: Start: 06-03-2022 End: 06-03-2022 ambulatory [employer] Marilyn Gordon [employer] Work Phone: [facility] Work Phone: Start: 06-03-2022 End: 06-03-2022 Patient encounter procedure [facility] Marilyn Gordon [employer] Work Phone: [facility] Start: 05-19-2022 End: 05-19-2022 Patient encounter procedure [facility] Marilyn Gordon [employer] Work Phone: [facility] Start: 05-08-2022 End: 05-08-2022 ambulatory [employer] Marilyn Gordon [employer] Work Phone: [facility] Work Phone: Start: 05-08-2022 End: 05-08-2022 Patient encounter procedure [facility] Marilyn Gordon [employer] Work Phone: [facility]-Laboratory Start: 04-28-2022 Non-patient / Non-visit [facility] Marilyn Gordon [employer] Work Phone: 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 Start: 02-19-2022 End: 02-19-2022 ambulatory [facility] Marilyn Gordon [employer] Work Phone: [facility] Work Phone: Start: 02-19-2022 End: 02-19-2022 Non-patient / Non-visit [facility] Marilyn Gordon [employer] Work Phone: [facility] Start: 02-15-2022 End: 02-15-2022 ambulatory [facility] Marilyn Gordon [employer] Work Phone: [facility] Work Phone: Start: 02-15-2022 End: 02-15-2022 Patient encounter procedure [facility] Marilyn Gordon [employer] Work Phone: [facility]-Laboratory Start: 02-13-2022 Non-patient / Non-visit [facility] Marilyn Gordon [employer] Work Phone: [facility] Start: 01-27-2022 Non-patient / Non-visit [facility] Marilyn Gordon [employer] Work Phone: [facility] Start: 01-23-2022 Non-patient / Non-visit [facility] Marilyn Gordon [employer] Work Phone: [facility] Start: 01-23-2022 End: 01-23-2022 Patient encounter procedure [facility] Marilyn Gordon [employer] Work Phone: [facility]-Cardiovascular Services Start: 01-23-2022 Non-patient / Non-visit [facility] Marilyn Gordon [employer] Work Phone: [facility] Start: 01-13-2022 End: 01-13-2022 Patient encounter procedure [facility] Marilyn Gordon [employer] Work Phone: [facility] Start: 11-08-2021 End: 11-08-2021 Patient encounter procedure [facility] Marilyn Gordon [employer] Work Phone: [facility] Start: 10-22-2021 End: 10-22-2021 Patient encounter procedure [facility]-Laboratory Start: 09-19-2021 End: 10-06-2021 [facility] Start: 08-29-2021 End: 08-29-2021 Patient encounter procedure [facility]-Laboratory, Specimen Start: 08-26-2021 End: 09-05-2021 [facility] Start: 08-26-2021 Registered Recurring [facility] Start: 08-15-2021 End: 09-05-2021 Discharged Recurring [facility] Start: 08-15-2021 Registered Recurring [facility] Start: 08-06-2021 End: 08-06-2021 Patient encounter procedure [facility]-Laboratory Start: 06-20-2021 End: 07-06-2021 [facility] Start: 04-22-2021 End: 05-06-2021 Discharged Recurring [facility] Start: 03-18-2021 End: 03-18-2021 Patient encounter procedure [facility]-Laboratory Start: 01-15-2017 End: 01-20-2017 Ambulatory MARILYN GORDON Facility:[facility] Procedures Date Procedure Procedure Detail Performing Clinician Start: 10-21-2024 Hepatitis C antibody measurement Marilyn SINGH Work Phone: Comment on above: Reactive: Presumptiv e evidence of antibodies to HCV. Follow CDC recommendations for supplemental testing.Non-Reactive: Antibodies to HCV were not detected; does not exclude the possibility of exposure to HCVReactive Results are presumptive evidence of antibodies to HCV. Follow CDC recommendations for supplemental testing.Order confirmation testing: HCV Quant by PCR testing - HCVPCR #[id number] Non Reactive: < 0.8 Equivocal: >/= 0.8 to < 1.0 Reactive: >/= 1.0The CDC requires that a reactive/equivocal HCV antibody result be sent out for confirmation. HCV Quant by PCR testing. Start: 10-21-2024 Prostate specific an tigen measurement Marilyn Gordon [facility] Work Phone: Comment on above: This test [...] Serum inorganic phos phate measurement Marilyn Gordon [facility] Work Phone: Start: 10-21-2024 Urnls dip stick/tabl et reagent auto microscopy Marilyn Gordon [facility] Work Phone: Start: 06-23-2023 CT of abdomen and pe lvis without contrast [facility] Marilyn Gordon [employer] Work Phone: Start: 06-03-2022 MRI of brain with contrast [facility] Marilyn Gordon [employer] [facility] Work Phone: Start: 02-15-2022 Plain chest X-ray [facility] Marilyn Gordon [employer] Work Phone: Start: 01-23-2022 Radionuclide imaging of perfusion of myocardium under exercise stress [facility] Marilyn Gordon [employer] Work Phone: Start: 06-20-2021 End: 06-20-2021 Viral antigen assay Start: 04-22-2021 SARS-CoV-2 Antigen (Rapid) Viral antigen assay Plan of Treatment Date Care Activity Detail Author Start: 06-23-2023 [facility] Catheterization of l eft heart [facility] Work Phone: Patient Education ED Flank Pain, Uncertain Cause ED Pulmonary Nodule, Solitary [facility] Work Phone: Patient referral [facility] Work Phone: [facility] Immunizations Immunization Date Immunization Notes Care Provider Fa silvina 12-24-2023 influenza, seasonal, injectable, preservative free Marilyn Gordon [facility] Work Phone: [facility] 01-12-2023 influenza, injectabl e, quadrivalent, preservative free [facility] Marilyn Lorson [employer] Work Phone: [facility] 12-16-2021 influenza, injectabl e, quadrivalent, preservative free [facility] Marilyn Lorson [employer] Work Phone: [facility] 12-16-2021 influenza, seasonal, injectable [facility] Marilyn Lorson [employer] Work Phone: [facility] 12-20-2020 influenza, injectabl e, quadrivalent, preservative free [facility] Marilyn Lorson [employer] Work Phone: [facility] 12-20-2020 influenza, seasonal, injectable [facility] 04-17-2020 Covpa (Moderna) [facility] 03-20-2020 [facility] 12-14-2019 influenza, injectabl e, quadrivalent, preservative free [facility] Marilyn Lorson [employer] [facility] Work Phone: [facility] 12-14-2019 influenza, seasonal, injectable [facility] 01-31-2019 influenza, injectabl e, quadrivalent, preservative free [facility] Marilyn Lorson [employer] Work Phone: [facility] 01-31-2019 influenza, seasonal, injectable [facility] 02-19-2015 influenza, injectabl e, quadrivalent, preservative free [facility] Marilyn Lorson [employer] [facility] Work Phone: [facility] 02-19-2015 influenza, seasonal, injectable [facility] 12-15-2013 influenza, injectabl e, quadrivalent, preservative free [facility] Marilyn Lorson [employer] Work Phone: [facility] 12-15-2013 influenza, seasonal, injectable [facility] 01-31-2013 Influenza virus vaccine [facility] Payers Date Payer Category Payer Self-pay [id number] 2024 [facility] [id number] 2017 Unknown [id number] Unknown [id number] Unknown [id number] 2.16.8 [id number] Unknown [id number] 2.16.8 [id number] Unknown [id number] 2.16.8 [id number] Unknown [id number] 2.16.8 [id number] Unknown [id number] 2.16.8 [id number] Unknown [id number] 2.16.8 [id number] Unknown [id number] 2.16.8 [id number] Unknown [id number] 2.16.8 [id number] Social History Date Type Detail Facility Start: 01-11-2021 End: 06-23-2023 Tobacco smoking status NHIS Unknown if ever smoked [facility] Start: 02-08-2019 Non-smoker [facility] Start: 1970 Sex Assigned At Male [facility] Start: 06-23-2023 Tobacco smoking stat us AKIS Never smoked tobacco (finding) [facility] Medical Equipment Procedure Code Equipment Code [...] 01-18-2019 Femoral vessel s uture implantation set [id number] FDA Start: 02-19-2022 TUBE,EAR T-TUBE FDA Start: [...] with BiPAP chronic Au roderick 2024 7:50am [facility] Work Phone: 1(586) 663-888004-16-2024 Discharge summary Author Jere Zhu [facility] June 23, 2023 9:02pm Note Date/Time June 23, 2023 6:0 4pm [facility] Medical Records Department [address] [place] [address] Emergency Department Summary 06/23/23 MR#: [id number] Acct: [id number] Name: KAMALA BRASWELL Jr. Rep #[id number] [...] Denies nausea or vomiting. Denies constipation ordiarrhea. [facility] Medical History Abnormal stress test Chest pain [...] Clarity Clear Urine pH 7.0 Ur Specific [place] 1.005 Urine Protein Negative Urine Glucose (UA) [...] 20:10 EDT Reading Location ID and State: [address] [place] [address] , Service support , Discharge Plan Triage [...] Q5-15M PRN Patient Comments: TAKE 1 TABLET [id number] EVERY 5 MINUTES NEEDED FOR CHEST PAIN [...] Provider: Marilyn Gordon NP Referrals: Marilyn Gordon [facility], [facility] [Primary Care Provider] - Disposition Disposition: Home, Self Care What to do if you have Problems For any increased pain, shortness of breath, bleeding, nausea or vomiting, chestpain, or any unexpected problems, contact your Primary Care Provider. Call [facility] ([phone]) or report to the closest Emergency Room. Call 911 if necessary. 06/23/232101 <Electronically signed by Jere Zhu DO> Cosigner Signature (if applicable): CC: [facility] [facility] Marilyn Gordon ~ Signed [facility] Work Phone: 1(627) 883-637901-01-2020 Chief complaint+Reason for visit Narrative * [facility] LAST SEEN 03/2019 NN PT CHEST TIGHTNESS CHEST TIGHTNESS CHEST PAIN/ABNORMAL STRESS TST EORDER- LABS AND XRAY Reason for Visit Chest pain Hyperlipidemia [facility] Work Phone: 1(170) 201-406601-01-2020 Chief complaint+Reason for visit Narrative * Chief Complaint COVID-19/[facility] EMPLOYE E LAST SEEN 03/2019 NN PT CHEST TIGHTNESS CHEST TIGHTNESS CHEST PAIN/ABNORMAL STRESS TST EORDER- LABS AND XRAY CHEST PAIN/ABNORMAL STRESS TST Reason for Visit Chest pain Hyperlipidemia [facility] Work Phone: evaluation noteNo assessment information available [facility] Work Phone: evaluation note* Diagnosis Onset Date Resolution Status Chest pain acute Hyperlipidemia chronic Hypertension [facility] Work Phone: Evaluation note* Diagnosis Onset Date Resolution Status Chest pain chronic Hyperlipidemia chronic Hypertension [facility] Work Phone: Evaluation note* Diagnosis Onset Date Resolution Status Chest pain chronic Hyperlipidemia chronic Hypertension chronic Exacerbation of gout acute [facility] Work Phone: Evaluation note* Diagnosis Onset Date Resolution Status Chest tightness chronic 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[place] Hyperlipidemia chronic Hypertension chronic CORBIN treated with BiPAP chron ic [facility] Work Phone: Evaluation note* Diagnosis Onset Date Resolution Status Hordeolum externum left lower eyelid acute 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[place] Hyperlipidemia chronic Hypertension chronic Morbid obesity chronic CORBIN treated with BiPAP chron ic [facility] Work Phone: Reason for referral (narrative)No reason for referral [facility] Work Phone: Summary Purpose Family History No [...] Will No February 08 8:58am Power of Manager Social No February 08, 2019 8:58am Advance Directive Response Recorded Date/ Time Advance Directives No February 08, 2019 7:58am Living Will No February 08 7:58am Power of Manager Social No February 08, 2019 7:58am Advance Directive Response Recorded Date/ Time Advance Directives No February 7:35am Living Will No February 18, 022 7:35am Power of Manager Social No February 18, 2022 7:35am Advance Directive Response Recorded Date/ Time Advance Directives No February 8:35am Living Will No February 18, 022 8:35am Power of Manager Social No February 18, 2022 8:35am Advance Directive Response Recorded Date/ Time Advance Directives No February 8:35am Living Will No June 23, 2023 6:27pm Power of Manager Social No June 22 6:27pm Advance Directive Response [...] 7:14am Chief Complaint Admit Date 2 ORDERING KAILAH July 14, 2024 7:14am COUGH, FEVER LAST [...] THROAT July 22, 2024 7:58am EMPLOYEE COVID/ [employer] July 22, 2024 8:09a m 1 Y FU October 20, 2024 7: 50am EMPLOYEE LABS October 21, 2024 6: 43am Additional Source Comments (unrecognized sect ion and content) No Status Records FoundNo Status Records Found INFORMATION SOURCE (unrecogn ized section and content) DATE CREATED AUTHOR 09/01/2017 [facility] ([place]) DATE CREATED AUTHOR 'S CHI ATSURYA 11/20/2024 [facility] Goals (unrecognized section and content) Goals may [...] Active Member Role Status Dates Marilyn Gordon [facility], [facility] Family Provider Active Marilyn Gordon [facility], [facility] Primary Care Provider Active Team Status: Inactive Member Role Status Dates Marilyn Gordon [facility], [facility] Primary Care Provider, Referri ng Provider Active Evelio Foss [facility], [facility] Attending Provider Active Team Status: Active Member Role Status Dates Marilyn Gordon [facility], [facility] Primary Care Provider Active Dr. Neftali Asencio MD Attending Provider Active Evelio Foss [facility], [facility] Referring Provider Active Team Status: Active Member Role Status Dates Marilyn Gordon [facility], [facility] Primary Care Provider Active Evelio Foss [facility], [facility] Other Provider Active Dr. Dixie Arita MD Attending Provider Activ e Team Status: Active Member Role Status Dates Marilyn Gordon NP, [facility] Primary Care Provider Active Dr. Dixie Arita MD Other Provider Active Evelio Foss [facility], [facility] Attending Provider Active Team Status: Active Member Role Status Dates Marilyn Gordon [facility], [facility] Primary Care Provider Active Dr. Dixie Arita MD Attending Provider Activ e Evelio Foss [facility], [facility] Referring Provider Active Team Status: Active Member Role Status Dates Marilyn Gordon [facility], [facility] Primary Care Provider Active Dr. Dixie Arita MD Attending Provider, Refe rring Provider Active Team Status: Active Member Role Status Dates Marilyn Gordno [facility], [facility] Primary Care Provider Active Dr. Neftali Asencio MD Attending Provider Active Team Status: Inactive Member Role Status Dates Marilyn Gordon FERRYBOAT PILOT, FERRYBOAT PILOT-C Primary Care Provider Active Evelio Foss FERRYBOAT PILOT, FERRYBOAT PILOT-C Attending Provider Active Team Status: Inactive Member Role Status Dates Marilyn Gordon FERRYBOAT PILOT, FERRYBOAT PILOT-C Primary Care Provider Active Dr. Dixie Arita MD Attending Provider, Refe rring Provider Active Team Status: Inactive Member Role Status Dates Marilyn Gordon FERRYBOAT PILOT, FERRYBOAT PILOT-C Primary Care Provider Active Evelio Foss FERRYBOAT PILOT, FERRYBOAT PILOT-C Attending Provider, Referring Pro vider Active Team Status: Inactive Member Role Status Dates Marilyn Gordon FERRYBOAT PILOT, FERRYBOAT PILOT-C Primary Care Provider Active Dr. Dixie Arita MD Attending Provider Activ e Team Status: Inactive Member Role Status Dates Marilyn Gordon FERRYBOAT PILOT, FERRYBOAT PILOT-C Primary Care Pro vider, Attending Provider, Referring Provider Active Team Status: Active Member Role Status Dates Marilyn Gordon FERRYBOAT PILOT, FERRYBOAT PILOT-C Primary Care Provider Active Dr. Neftali Asencio MD Attending Provider Active Dr. Dixie Arita MD Referring Provider Activ e Team Status: Inactive Member Role Status Dates Marilyn Gordon FERRYBOAT PILOT, FERRYBOAT PILOT-C Primary Care Provider, Referri ng Provider Active Robert Monroy PA, PA Attending Provider Active Team Status: Inactive Member Role Status Dates Marilyn Gordon FERRYBOAT PILOT, FERRYBOAT PILOT-C Primary Care Provider, Referri ng Provider Active Dr. Mt Varela MD Attending Provider Active Team Status: Inactive Member Role Status Dates Marilyn Gordon FERRYBOAT PILOT, FERRYBOAT PILOT-C Primary Care Provider, Attendi ng Provider Active Dr. Mt Varela MD Referring Provider Active Team Status: Inactive Member Role Status Dates Marilyn Gordon FERRYBOAT PILOT, FERRYBOAT PILOT-C Primary Care Provider Active Dr. Jere Zhu DO Emergency Provider Active Team Status: Inactive Member Role Status Dates Marilyn Gordon FERRYBOAT PILOT, FERRYBOAT PILOT-C Primary Care Provider Active Start: July 14, 2024 End: July 14, 2024 Dr. Ruben Marie MD Attending Provider Active Start: July 14, 2024 End: July 14, 2024 Dr. Ruben Marie MD Referring Provider Active Start: July 14, 2024 End: July 14, 2024 Lyla Bernard PA, PA Other Provider Active Start: July 14, 2024 End: July 14, 2024 Team Status: Active Member Role Status Dates Marilyn Gordon FERRYBOAT PILOT, FERRYBOAT PILOT-C Primary Care Provider Active Start: July 22, 2024 Marilyn Gordon FERRYBOAT PILOT, FERRYBOAT PILOT-C Referring Provider Active Start: July 22, 2024 Sylvain SEVILLA, PA Attending Provider Active Sta rt: July 22, 2024 Team Status: Inactive Member Role Status Dates Marilyn Gordon FERRYBOAT PILOT, FERRYBOAT PILOT-C Primary Care Provider Active Start: July 22, 2024 End: July 22, 2024 Marilyn Gordon FERRYBOAT PILOT, FERRYBOAT PILOT-C Referring Provider Active Start: July 22, 2024 End: July 22, 2024 Sylvain SEVILLA, PA Attending Provider Active Sta rt: July 22, 2024 End: July 22, 2024 Team Status: Active Member Role/Relationship Status Dates Marilyn Gordon FERRYBOAT PILOT, FERRYBOAT PILOT-C Family Provider Active Marilyn Gordon FERRYBOAT PILOT, FERRYBOAT PILOT-C Primary Care Provider Active Team Status: Inactive Member Role/Relationship Status Dates Marilyn Gordon FERRYBOAT PILOT, FERRYBOAT PILOT-C Primary Care Provider Active Start: July 14, [...] Inactive Member Role/Relationship Status Dates Marilyn Gordon FERRYBOAT PILOT, FERRYBOAT PILOT-C Primary Care Provider Active Start: July 22, 2024 End: July 22, 2024 Marilyn Gordon FERRYBOAT PILOT, FERRYBOAT PILOT-C Referring Provider Active Start: July 22, 2024 End: July 22, 2024 Sylvain SEVILLA, PA Attending Provider Active Sta rt: July 22, 2024 End: July 22, 2024 Team Status: Inactive Member Role/Relationship Status Dates Marilyn Gordon FERRYBOAT PILOT, FERRYBOAT PILOT-C Primary Care Provider Active Start: July 22, 2024 End: July 22, 2024 Marilyn Gordon FERRYBOAT PILOT, FERRYBOAT PILOT-C Referring Provider Active Start: July 22, 2024 End: July 22, 2024 Sylvain SEVILLA PA Attending Provider Active Sta rt: July 22, 2024 End: July 22, 2024 Team Status: Inactive Member Role/Relationship Status Dates Marilyn Gordon FERRYBOAT PILOT, FERRYBOAT PILOT-C Primary Care Provider Active Start: October 20, 2024 End: October 20, 2024 Marilyn Gordon FERRYBOAT PILOT, FERRYBOAT PILOT-C Referring Provider Active Start: October 20, 2024 End: October 20, 2024 Radha Mello FERRYBOAT PILOT, FERRYBOAT PILOT-C Attending Provider Active Start: October 20, 2024 End: October 20, 2024 Team Status: Inactive Member Role/Relationship Status Dates Marilyn Gordon FERRYBOAT PILOT, FERRYBOAT PILOT-C Primary Care Provider Active Start: October 21, 2024 End: October 21, 2024 Marilyn Gordon FERRYBOAT PILOT, FERRYBOAT PILOT-C Attending Provider Active Start: October 21, 2024 End: October 21, 2024 Marilyn Gordon FERRYBOAT PILOT, FERRYBOAT PILOT-C Referring Provider Active Start: October 21, 2024 End: October 21, 2024 Team Status: Active Member Role/Relationship Status Dates Marilyn Gordon FERRYBOAT PILOT, FERRYBOAT PILOT-C Primary Care Provider Active Start: October 21, [...] BE BASED ON THE PRIMARY CLINICAL RECORDS. [facility]. provides no warranty or guarantee of the accuracy or completeness of information in this document.
== END | disposition home or self-care (01) ==
LOC: US 15:40
PROVIDERS: PCP Nurse Practitioner Family; Referring Provider Nurse Practitioner Family; Visit Provider Nurse Practitioner Family
DX: R22.2 Localized swelling, mass and lump, trunk (principal)
CPT/HCPCS: 76999

== ENCOUNTER → 2024-12-21 | Outpatient (CLI) | payer OTHER, SELFPAY | END | disposition home or self-care (01) | LOC: LAB 07:18 | PROVIDERS: PCP Nurse Practitioner Family; Visit Provider Nurse Practitioner Family | DX: R31.9 Hematuria, unspecified (principal) | CPT/HCPCS: 87086 ==

== ENCOUNTER 2025-01-08 12:36 | Observation (INO) | payer OTHER, SELFPAY ==
[2025-01-08] VITALS (8 sets, daily range): BP systolic 142–187; BP diastolic 82–100; PULSE 58–80; RESP 16–20; TEMP 36.2–36.8; O2SAT 96–100; BMI 53.4; BMI 50.0
--- NOTE | 2025-01-08 12:37 | EKG12_ITS ---
Test Reason : STROKE ALERT Blood Pressure : */* mmHG Vent. Rate : 69 BPM Atrial Rate : 69 BPM P-R Int : 150 ms QRS Dur : 92 ms QT Int : 378 ms P-R-T Axes : 49 41 26 degrees QTcB Int : 405 ms Normal sinus rhythm Normal ECG Confirmed by Aleksandr Marcus ([id number]), editor news EMMANUEL TORRES ([id number]) on 01/09/2025 12:49:12 PM Referred By: Confirmed By: Aleksandr Marcus
--- NOTE | 2025-01-08 12:38 | ED.VIS.STROK ---
HPI History of Present Illness Chief Complaint: Stroke Alert Narrative Narrative: Patient is a 54-year-old male presenting to the emergency department for a stroke alert called in the field. Patient has a past medical history of hypertension, hyperlipidemia and obesity. Last known well was 30 minutes prior to arrival. He is only on aspirin, no oral anticoagulation. Patient states that he was out blowing leaves when he developed sudden onset right sided weakness, numbness and blurry vision in the peripheral of his right sided vision. EMS was called and when they arrived the right side his body was weak and numb. Patient denies any headache, nausea or vomiting. Denies any recent head trauma. [facility] Medical History Hypertension Home Medications ?Medication ?Instructions ?Recorded ?Last Taken ?Type amlodipine 5 mg tablet 5 mg PO DAILY 01/08/25 Unknown History aspirin 81 mg tablet,delayed 81 mg PO DAILY 01/08/25 Unknown History release (Adult Aspirin Regimen) atorvastatin 40 mg tablet (Lipitor) 40 mg PO DAILY 01/08/25 Unknown History losartan 100 mg tablet 100 mg PO DAILY 01/08/25 Unknown History Allergy/AdvReac Type Severity Reaction Status Date / Time No Known Allergies Allergy Verified 01/08/25 14:49 Social History housing: house Smoking Status: Never smoker ROS ROS ED ROS Narrative See HPI EXAM Physical Exam Narrative Exam Narrative: Vital signs: Reviewed General: Alert and oriented x 3. No acute distress HEENT: Head is normocephalic and atraumatic, sinuses nontender, pupils equal round and reactive. Nares are patent. Oropharynx and throat exams normal. Neck: Supple without lymphadenopathy nontender Cardiovascular: Regular rate and rhythm, no murmurs. No rubs or gallops. Normal S1 and S2 Respiratory: Clear to auscultation bilaterally. No wheezes, rales, rhonchi Abdominal: Soft and nontender. Normal bowel sounds. No guarding or rebound. Nonsurgical abdomen Extremities: No tenderness. No bruising. Normal range of motion. Normal sensation. Skin: No rash or redness. The rest of the physical exam is unremarkable Const Vital Signs: 01/08/25 12:38 01/08/25 12:51 01/08/25 12:51 Temperature 98.3 F Temperature Source Oral Pulse Rate 73 73 Respiratory Rate 16 18 Blood Pressure 185/100 H 185/100 H Blood Pressure Mean 128 128 Pulse Ox 99 100 96 Oxygen Delivery Method Room Air Room Air 01/08/25 12:51 01/08/25 13:29 01/08/25 13:30 Temperature Temperature Source Pulse Rate 73 67 77 Respiratory Rate 18 18 20 H Blood Pressure 185/100 H 147/87 H 147/87 H Blood Pressure Mean 128 107 107 Pulse Ox 100 99 100 Oxygen Delivery Method 01/08/25 14:08 Temperature 98.2 F Temperature Source Pulse Rate 77 Respiratory Rate 20 H Blood Pressure 147/87 H Blood Pressure Mean 107 Pulse Ox 100 Oxygen Delivery Method MDM MDM MDM Narrative Medical decision making narrative: Patient is a 54-year-old male presenting to the emergency department for a stroke alert called in the field. Patient was seen immediately on arrival in the hallway. NIH of 3 on my evaluation for drift in the right upper and lower extremities which has markedly improved since EMS arrived. Also has sensation deficit on the right side. Sent to CT for CT and CTA. Spoke with stroke neurologist Dr Kvng Schulz who agreed with no TNK at this time given resolving symptoms and low NIH. On my reevaluation of the patient with the neurologist stated prior, NIH is now a 2. He recommended 325 mg aspirin. Patient is already on low-dose statin at home. EKG shows normal sinus rhythm with no ischemic changes. No dysrhythmia. CT of the brain with no acute abnormality. CTA of the head and neck is normal. CBC with no leukocytosis and a normal hemoglobin. BMP with no significant abnormalities. Troponin within normal limits. Updated the patient on the negative imaging. At time of reevaluation NIH is 1 for only sensation deficits. Patient will require admission for MRI and further stroke workup/management. Patient admitted to Dr. Blanton. Clinical impression: Stroke like symptoms History & Record Review Discussion w/independent historian: Patient Lab Data Attestation: I reviewed the patient's lab results. Labs: Laboratory Results - last 24 hr 01/08/25 01/08/25 13:15 14:08 WBC 9.3 RBC 4.35 L Hgb 13.8 Hct 41.0 MCV 94.3 H MCH 31.7 MCHC 33.7 RDW Std Deviation 45.7 H RDW Coeff of Loree 13.3 Plt Count 178 MPV 10.4 Immature Gran % (Auto) 0.500 Neut % (Auto) 69.1 Lymph % (Auto) 19.2 [place] % (Auto) 9.5 Eos % (Auto) 1.2 Baso % (Auto) 0.5 Absolute Neuts (auto) 6.4 Absolute Lymphs (auto) 1.79 Nucleated RBC % 0 Platelet Estimate ADEQUATE PT 12.7 INR 0.9 APTT Cancelled 21.7 L Sodium 135 Potassium 4.3 Chloride 104 Carbon Dioxide 20.6 L Anion Gap 10 BUN 14 Creatinine 1.05 Estim Creat Clear Calc 117.75 Est GFR (MDRD) Non-Af 84 BUN/Creatinine Ratio 13.0 Glucose 104 H Calcium 8.9 Troponin T High Sens 11 Radiography Diagnostic Testing: Clinical Impression(s) from Imaging Studies Brain CT 01/08/25 12:41 IMPRESSION: No acute abnormality. The given the history of neuro deficit, and the concern for stroke, MRI with diffusion-weighted imaging is recommended. Reading [facility] Head/Neck CTA 01/08/25 12:54 IMPRESSION: Normal CTA head/neck. Reading Location[facility] Critical Care Time Critical Care Time: Yes Critical care time (excluding procedures): 30-74 minutes (31), Discussing w/Patient &/or Family/Bologna Maker, Discussing w/Consultants and Performing Direct Patient Care at Bedside Discharge Plan Disposition Disposition: Acute Care Hospital [facility] Discharge Date/Time: 01/08/25 14:44 NIHSS NIHSS 1a. Level of Consciousness: 0 - Alert; keenly responsive 1b. LOC Questions: 0 - Answers BOTH questions correctly 1c. LOC Commands: 0 - Performs BOTH tasks correctly 2. Best Gaze: 0 - Normal 3. Visual: 0 - No visual loss 4. Facial Palsy: 0 - Normal symmetrical movements 5a. Left Arm: 0 - No drift; arm holds 90 (or 45) degrees for full 10 seconds 5b. Right Arm: 1 - Drift; arm drifts downward but doesn?t hit the bed 6a. Left Le - No drift; leg holds 30-degree position for full 5 seconds 6b. Right Le - Drift; leg falls by the end of 5-seconds, but does not hit bed 7. Limb Ataxia: 0 - Absent 8. Sensory: 1 - [id number]-[id number] sensory loss; 9. Best Language: 0 - No aphasia; normal 10. Dysarthria: 0 - Normal 11. Extinction and Inattention: 0 - No abnormality Total: 3 Stroke Questions Stroke Team Activated: Yes Reviewed Inclusion/Exclusion criteria: Yes IV Thrombolytic Administered: No No contraindications from thrombolytic administration: No
--- NOTE | 2025-01-08 12:41 | CT_ITS ---
PROCEDURE: STROKE BRAIN/HEAD WITHOUT CONT 01/08/2025 REASON FOR EXAM: NEURO DEFICIT, ACUTE, STROKE SUSPECTED TECHNIQUE: Procedure Code: CTBR.ST Modality: CT Procedure: STROKE BRAIN/HEAD WITHOUT CONT Coronal and Sagittal reconstruction series were provided. One or more dose reduction techniques were used (e.g., Automated exposure control, adjustment of the mA and/or kV according to patient size, use of iterative reconstruction technique. RADIATION DOSE SUMMARY: CTDlvol: 44.99 mGy DLP: 897.35 mGycm COMPARISON: None FINDINGS: There is no evidence of acute intracranial hemorrhage or mass effect. Ventricles and cortical sulci are unremarkable. Likely minimal periventricular small-vessel ischemic change on the left. There is a calcification noted in the region of the pineal gland. This is of doubtful significance. Orbits are unremarkable. Paranasal sinuses and mastoid air cells are grossly clear. The calvarium is grossly intact. CT/STROKE Brain/Head without Cont IMPRESSION: No acute abnormality. The given the history of neuro deficit, and the concer n for stroke, MRI with diffusion-weighted imaging is recommended. Reading [facility]
--- NOTE | 2025-01-08 12:54 | CT_ITS ---
PROCEDURE: STROKE CTA HEAD AND NECK W/CON 01/08/2025 REASON FOR EXAM: NEURO DEFICIT, ACUTE, STROKE SUSPECTED TECHNIQUE: Procedure Code: CTCTA.ST.HN Modality: CT Procedure: STROKE CTA HEAD AND NECK W/CON CT angiography of the head/neck was performed. Multiplanar Sagittal and Coronal images were obtained. MIP reformats were generated. CONTRAST: Isovue 370 VOLUME: 100 mL One or more dose reduction techniques were used (e.g., Automated exposure control, adjustment of the mA and/or kV according to patient size, use of iterative reconstruction technique). RADIATION DOSE SUMMARY: DLP: 902.3 mGycm COMPARISON: None. FINDINGS: CTA neck: Suboptimal bolus timing. Allowing for this limitation, the aortic arch is normal with normal branch pattern. The imaged subclavian arteries are normal. The bilateral common carotid and cervical ICAs are normal. No plaque. No aneurysm or dissection. Vertebral arteries are normal bilaterally. CTA head: Intracranial ICAs are normal. The anterior and middle cerebral arteries are normal bilaterally. The V4 vertebral arteries are normal. The basilar artery is normal. Posterior cerebral arteries are unremarkable. No aneurysm or vascular malformation identified. The dural venous sinuses normally enhance with no evidence of thrombus. Minor degenerative changes of the cervical spine. Otherwise there are no significant nonvascular incidental findings. Lung apices are clear. CT/STROKE CTA Head AND Neck W/Con IMPRESSION: Normal CTA head/neck. Reading Location[facility]
[2025-01-08 13:27] LABS: Hematocrit 41.0 % (40-54); Hemoglobin 13.8 g/dL (13.0-16.5); Immature Granulocytes Count 0.050 X10^3/uL (0.0-0.0); Mean Corp Hgb Conc 33.7 g/dL (32-36); Mean Corpuscular Volume 94.3 fL (80-94); Mean Platelet Vol. 10.4 fl (6.2-12.0); NRBC Flagged by Analyzer 0 % (0-5); POSITIVE COUNT YES; Platelet Count 178 K/mm3 (150-450); RBC Distribution Width CV 13.3 % (11.6-14.6); RBC Distribution Width SD 45.7 fl (35.1-43.9); Red Blood Count 4.35 M/mm3 (4.6-6.2); White Blood Count 9.3 K/mm3 (4.4-11.0)
[2025-01-08 13:34] LABS: Prothrombin Time (Protime)PT. 12.7 SECONDS (11.7-14.9)
--- OUTSIDE RECORDS SUMMARY | 2025-01-08 13:47 | XMS RPT_ITS | CCD ---
Author Organization [facility] Care Team Providers Care Manager Shift Name Role Phone MARILYN GORODN Unavailable Unavailable MARILYN GORDON Unavailable Unavailable Shaheed SOUND PERSON, SOUND PERSON-C Marilyn Primary Care Provider [phone] Shaheed SOUND PERSON, SOUND PERSON-C Marilyn Referring Provider [phone] DI Rodriguez Attending Provider [phone] Roof SOUND PERSON, SOUND PERSON-C Evelio Elder Attending Provider Dr. Neftali Asencio Attending Provider [phone] Roof SOUND PERSON, SOUND PERSON-C Evelio Elder Referring Provider Roof SOUND PERSON, SOUND PERSON-C Evelio H Other Provider [phone] Dr. Dixie Arita Attending Provider [phone] Dr. Dixie Arita Other Provider Shaheed SOUND PERSON, SOUND PERSON-C Marilyn Primary Care Provider [phone] Dr. Dixie Arita Attending Provider [phone] Roof SOUND PERSON, SOUND PERSON-C Evelio Elder Referring Provider Roof SOUND PERSON, SOUND PERSON-C Evelio H Attending Provider Dr. Dixie Arita Referring Provider [phone] Pricilason SOUND PERSON, SOUND PERSON-C Marilyn Referring Provider [phone] Shaheed SOUND PERSON, SOUND PERSON-C Marilyn Primary Care Provider [phone] Dr. Dixie Arita Other Provider Roof SOUND PERSON, SOUND PERSON-C Evelio Elder Attending Provider Dr. Dixie Arita Attending Provider [phone] Dr. Dixie Arita Referring Provider [phone] [place] SOUND PERSON, SOUND PERSON-C Marilyn Referring Provider [phone] Dr. Neftali Asencio Attending Provider [phone] DI Mitchell Attending Provider [place] SOUND PERSON, SOUND PERSON-C Marilyn Primary Care Provider [place] SOUND PERSON, SOUND PERSON-C Marilyn Referring Provider [phone] Dr. [place] Attending Provider [phone] [place] SOUND PERSON, SOUND PERSON-C Marilyn Primary Care Provider [place] SOUND PERSON, SOUND PERSON-C Marilyn Referring Provider [phone] DI Mitchell Attending Provider Dr. [place] Attending Provider [phone] [place] SOUND PERSON, SOUND PERSON-C [place] Primary Care Provider [phone] [place] SOUND PERSON, SOUND PERSON-C Marilyn Referring Provider [phone] DI Mitchell Attending Provider Dr. [place] Attending Provider [phone] [place] SOUND PERSON-C, Marilyn Primary Care Provider [phone] Dr. Ruben Marie MD Attending Provider Dr. Ruben Marie MD Referring Provider Lyla Camacho Other Provider [phone] [place] SOUND PERSON-C, Marilyn Referring Provider [phone] Sylvain Rodriguez Attending Provider [phone] Riaz POPE-CRadha Attending Provider [phone] Shaheed SOUND PERSON-CMarilyn Attending Provider [phone] Assessment, Health Risk Attending Provider Unava ilable Assessment, Health Risk Referring Provider Unava ilable Pricilason SOUND PERSON-CMarilyn Primary Care Physician [phone] Pricilason SOUND PERSON-C, Marilyn Referring Provider [phone] Riaz POPE-CRadha Attending Physician Shaheed SOUND PERSON-C, Marilyn Attending Physician Assessment, Health Risk Attending Physician Unav ailable Shaheed SOUND PERSON, Marilyn Primary Care Unavailable [place] SOUND PERSON, Marilyn Attending Unavailable [place] SOUND PERSON, [place] Primary Care Unavailable [place] SOUND PERSON, Marilyn Attending Unavailable [place] SOUND PERSON, Marilyn Referring Unavailable [place] SOUND PERSON, [place] Primary Care Unavailable Assessment, Health Risk Attending Unavaila ble Assessment, Health Risk Referring Unavaila ble [place] SOUND PERSON, Marilyn Referring Unavailable [place] SOUND PERSON, Marilyn Attending Unavailable [place] SOUND PERSON, [place] Primary Care Unavailable [place] SOUND PERSON, Marilyn Referring Unavailable [place] SOUND PERSON, Marilyn Primary Care Unavailable Pricilason SOUND PERSON, Marilyn Attending Unavailable Pricilason SOUND PERSON, Marilyn Referring Unavailable Riaz POPE, Radha Attending Unavailable Pricilason SOUND PERSON, Marilyn Primary Care Unavailable [place] SOUND PERSON, Marilyn Referring Unavailable [place] SOUND PERSON, Marilyn Primary Care Unavailable Sylvain Rodriguez Attending Unavailable Pricilason SOUND PERSON, Marilyn Referring Unavailable Pricilason SOUND PERSON, [place] Primary Care Unavailable Sylvain Rodriguez Attending Unavailable Ruben Marie Attending Unavailable Ruben Marie Referring Unavailable Lyla Camacho Unavail able Shaheed SOUND PERSON, [facility] Care Unavailable Medications Current Medications Medication Drug Class(es) Dates Sig (Normalized) Sig (Original) aspirin 81 mg delayed release oral tablet (20 sources) Platelet Aggregation Inhibitor, Nonsteroidal Anti-inflammatory Drug Start: 02-11-2022 Start: 02-07-2019 End: 02-14-2019 Aspirin (Adult Low Dose Aspi rin) 81 mg tablet,delayed release (DR/EC) Discontinued 81 mg PO DAILY February 07, 2019 1:00am February 14, 2019 12:36pm atorvastatin 40 mg oral tablet (14 sources) HMG-CoA Reductase Inhibitor Start: 02-14-2022 take 1 tablet by mouth at bedtime losartan potassium 100 mg oral tablet (20 sources) Angiotensin 2 Receptor Liliana Start: 04-22-2023 End: 04-22-2024 take 1 tablet by mouth once daily Start: 01-13-2022 End: 04-22-2023 take 1 tablet [...] February 07, 2019 2:39pm nitroglycerin 0.4 mg subling ual tablet (20 sources) Nitrate Vasodilator Start: 04-22-2023 Start: 04-22-2023 Nitroglycerin Active 0.4 MG SL [...] 2020 7:40am tiZANidine 4 mg oral capsule (8 sources) Central alpha-2 Adrenergic Agonist Start: 06-23-2023 take 1 capsule by mouth every eight hours as needed Completed/Discontinued Medications Medication Drug Class(es) Dates Sig (Normalized) Sig (Original) acetaminophen 325 mg / HYDROcodone bitartrate 5 mg oral tablet (20 sources) Opioid Agonist Start: 04-29-2018 End: 05-02-2018 [...] 2020 7:40am benzonatate 100 mg oral capsule (4 sources) Non-narcotic Antitussive Start: 07-22-2024 End: 10-20-2024 take 2 capsules by mouth three times daily as needed for cough Benzonatate 100 mg capsule Discontinued 200 mg PO THREE TIMES A DAY as needed for cough 30 July 22, 2024 12:00am October 20, 2024 7:55am cephalexin 500 mg oral capsule (20 sources) Cephalosporin Antibacterial Start: 07-19-2019 End: 05-14-2020 take 1 capsule by mouth every eight hours Cephalexin 500 MG capsule Discontinued 500 mg PO EVERY 8 HOURS July 19, 2019 12:00am May 14, 2020 7:40am cyclobenzaprine hydrochloride 5 mg oral tablet (20 sources) Muscle Relaxant Start: 04-30-2018 End: 12-09-2018 take 1 tablet by mouth three times daily as needed for muscle spasms Cyclobenzaprine 5 mg tablet Discontinued 5 mg PO THREE TIMES A DAY as needed for muscle spasm April 30, 2018 1:00am December 09, 2018 7:42am Radiculopathy, lumbar region 0.5 ml dulaglutide 1.5 mg/ml auto-injector (14 sources) GLP-1 Receptor Agonist Start: 02-14-2022 End: 09-19-2022 Dulaglutide (Trulicity) 0.75 mg/0.5 mL pen injector Discontinued 0.75 mg SC EVERY WEEK 2 February 14, 2022 1:00am September 19, 2022 8:52am escitalopram 5 mg oral tablet (9 sources) Serotonin Reuptake Inhibitor Start: 04-22-2023 End: 10-23-2023 take 1 tablet by mouth once daily Escitalopram Oxalate 5 mg tablet Discontinued 5 mg PO DAILY April 22, 2023 1:00am October 23, 2023 8:23am ipratropium bromide 0.021 mg/actuat metered dose nasal spray (2 sources) Anticholinergic Start: 07-22-2024 End: 10-20-2024 Ipratropium [place] 21 mcg (0.03 %) spray,non-aerosol Discontinued 2 NMA INTRANASAL 2 to 3 times per day as needed for postnasal drainage 30 July 22, 2024 12:00am October 20, 2024 7:55am administer into each nostril Ipratropium [place] 21 mcg (0.03 %) spray,non-aerosol (2 sources) Start: 07-22-2024 End: 10-20-2024 Ipratropium [place] 21 mcg (0.03 %) spray,non-aerosol Discontinued 2 [...] 4:11pm metFORMIN hydrochloride 500 mg oral tablet (9 sources) Biguanide Start: 04-22-2023 End: 10-23-2023 take 1 tablet by mouth once daily Metformin 500 mg tablet Discontinued 500 mg PO DAILY April 22, 2023 1:00am October 23, 2023 8:22am Methylprednisolone (20 sources) Corticosteroid Start: 05-14-2020 End: 10-09-2020 Methylprednisolone [...] 6:54am PO PER PKG DIR Multivitamin tablet (14 sources) Start: 01-13-2022 End: 10-20-2024 Multivitamin tablet [...] 7:55am Start: 05-14-2020 take 1 capsule by mouth twice daily as needed for pain omeprazole 20 mg delayed release oral capsule (20 sources) Proton Pump Inhibitor Start: 12-17-2018 End: 05-14-2020 take 1 capsule by mouth once daily as needed for gastroesophageal reflux disease Omeprazole 20 mg capsule,delayed release(DR/EC) Discontinued 20 mg PO DAILY as needed for Heartburn February 07, 2019 2:39pm May 14, 2020 7:40am phentermine hydrochloride 30 mg oral capsule (20 sources) Sympathomimetic Amine Anorectic Start: 05-14-2020 End: [...] Date Documented Da te Episodic/Chronic Abdominal pain (12 sources) Right inguinal pain; Translations: [Right lower quadrant pain] 04-25-2022 Episodic Coronary atherosclerosis and other heart disease (17 sources) Coronary arteriosclerosis; Translations: [Atherosclerotic heart disease of [place] coronary artery without angina pectoris] 09-19-2022 Chronic Crushing injury or internal injury (12 sources) Unspecified injury of femoral artery, right leg, initial encounter; Translations: [Injury of right femoral artery] 04-25-2022 Episodic Diabetes mellitus without complication (8 sources) Prediabetes; Translations: [Prediabetes] Onset: 10-28-2024 10-23-2023 Episodic Disorders of lipid metabolism (20 sources) Mixed hyperlipidemia; Translations: [Hyperlipidemia] Onset: 01-15-2017 Chronic Essential hypertension (20 sources) Hypertensive disorder; Translations: [Essential (primary) hypertension] Onset: 11-24-2024 Chronic Genitourinary symptoms and ill-defined conditions (1 source) Hematuria, unspecified; Translations: [Hematuria, unspecified] Onset: 01-02-2025 Episodic Gout and other crystal arthropathies (12 sources) Gout; Translations: [Gout, unspecified] 05-19-2022 Chronic Inflammation; infection of eye (except that caused by tuberculosis or sexually transmitteddisease) (11 sources) Hordeolum externum of left lower eyelid; Translations: [Hordeolum externum left lower eyelid] 03-24-2023 Episodic Nonspecific chest pain (20 sources) Chest pain; Translations: [Chest pain, unspecified] Episodic Other connective tissue disease (20 sources) Achilles tendinitis; Translations: [Achilles tendinitis, unspecified leg] 10-09-2020 Episodic Other connective tissue disease (20 sources) Swelling of lower limb; Translations: [Other specified soft tissue disorders] 02-01-2019 Episodic Other liver diseases (1 source) Fatty (change of) liver, not elsewhere classified; Translations: [Fatty (change of) liver, not elsewhere classified] Onset: 07-19-2024 Chronic Other lower respiratory disease (20 sources) Dyspnea; Translations: [Dyspnea, unspecified] 02-07-2019 Episodic Other nutritional; endocrine; and metabolic disorders (10 sources) Morbid obesity; Translations: [Morbid (severe) obesity due to excess calories] 09-19-2022 Chronic Other nutritional; endocrine; and metabolic disorders (2 sources) Morbid (severe) obesity due to excess calories; Translations: [Morbid obesity] 04-22-2023 Chronic Other screening for suspected conditions (not mental disorders or infectious disease) (20 sources) Cardiovascular stress test abnormal; Translations: [Abnormal result of other cardiovascular function study] 02-01-2019 Episodic Other skin disorders (1 source) Localized swelling, mass and lump, trunk; Translations: [Localized swelling, mass and lump, trunk] Onset: 11-30-2024 Episodic Other upper respiratory infections (6 sources) Acute upper respiratory infection; Translations: [Acute upper respiratory infection, unspecified] 07-22-2024 Episodic Otitis media and related conditions (20 sources) Bilateral chronic serous otitis; Translations: [Chronic serous otitis media, bilateral] 01-18-2019 Chronic Residual codes; unclassified (20 sources) Obstructive sleep apnea syndrome; Translations: [Obstructive sleep apnea (adult) (pediatric)] 01-13-2022 Chronic Residual codes; unclassified (3 sources) Obstructive sleep apnea (adult) (pediatric); Translations: [Obstructive sleep apnea (adult)(pediatric)] 09-19-2022 Chronic Spondylosis; intervertebral disc disorders; other back problems (20 sources) Lumbar radiculopathy; Translations: [Radiculopathy, lumbar region] 02-01-2019 Episodic Sprains and strains (20 sources) Low back strain; Translations: [Strain of muscle, fascia and tendon of lower back, initial encounter] 02-01-2019 Episodic Viral infection (20 sources) Disease caused by 2019-nCoV; Translations: [COVID-19] 01-11-2021 Episodic Past or Other Problems Problem Classification Problem Date Documented Da te Episodic/Chronic Other nutritional; endocrine; and metabolic disorders (2 sources) Abnormal weight gain; Translations: [Abnormal weight gain] Onset: 01-15-2017 Episodic Results Test Name Value Interpretation Reference Range Facility Urine Cultureon 12-22-2024 URC Culture exhibits no growth. Normal [facility] Comment on above: Performed By: #### M 100.2200 #### [facility] Laboratory [address]. [place], [place], [address] Other Unlisted US Procedureo n 11-23-2024 Other Unlisted US Procedure [facility] Imaging Services [address] [place], [place] [id number] Other Unlisted US Procedure MR#: [id number] Acct: [id number] Name: KAMALA BRASWELL Rep #: [id number] : 1970 M 54 From: Roland lester MD PCP: FRANCISCO Escalona Status: REG CLI Study: Other Unlisted US Procedure Date of Exam: 11/07 09/30 Exam# [id number] Ordering Dr: Marilyn Gordon NP SOUND PERSON -C PROCEDURE: OTHER UNLISTED US PROCEDURE 11/23/2024 REASON FOR EXAM: Right supraclavicular palpable abnormality. TECHNIQUE: Procedure Code: USOTH SOFT Modality: US Procedure: OTHER UNLISTED US PROCEDURE COMPARISON: None FINDINGS: The palpable lump corresponds to a normal vessel. US/Other Unlisted US Procedure IMPRESSION: The palpable abnormality corresponds to a normal vessel. Reading Location: [place] [address] CC: FRANCISCO Gordon Supervisor Telephone Answering Service: Signed Normal [facility] Microalb:Creat Ratio,Random URon 11-16-2024 Creatinine [Mass/Vol] 108.00 mg/dL Normal 39.00-259.[address] [facility] Comment on above: Performed By: #### L 502.0250, L400.0001 ####[facility] [address] [place] [address] MALB:CREAT UNABLE TO CALCULATE Normal <30 mg/g CRE [facility] Comment on above: Performed By: #### L 502.0250, L400.0001 ####[facility] [address] [place] [address] MICROALBUMIN,UR < 12.0 Normal <20 mg/L [facility] Comment on above: Performed By: #### L 502.0250, L400.0001 ####[facility] [address] [facility] [address] Microalbumin/creat ratio urO rdered By: Marilyn Gordon on 11-16-2024 Urine microalbumin/creatinine ratio measurement UNABLE TO CALCULATE mg/g CRE <[address] [facility] Random urine creatinine danica urement (mass/volume)Ordered By: Marilyn Gordon on 11-16-2024 Creatinine Unsp time (U) [Mass/Vol] 108.00 mg/dL 39.00-259.[address] [facility] Urinalysis, Completeon 11-16 BACTERIA 0 SEEN Normal None Seen [facility] Comment on above: Order Comment: CLEAN CATCH Result Comment: WRON G Performed By: #### L 502.0250, L400.0001 ####[facility] [address] [place], [address] EPI,SQUAMOUS 0 SEEN Normal 0-[address] [facility] Comment on above: Order Comment: CLEAN CATCH Result Comment: WRON G Performed By: #### L 502.0250, L400.0001 ####[facility] [address] [place], [address] Mucus Ql (Urine sed) 0 SEEN Normal [facility] Comment on above: Order Comment: CLEAN CATCH Result Comment: WRON G Performed By: #### L 502.0250, L400.0001 ####[facility] [address] [place], [address] RBC 0 SEEN Normal 0-[address] [facility] Comment on above: Order Comment: CLEAN CATCH Result Comment: WRON G Performed By: #### L 502.0250, L400.0001 ####[facility] [address] [place], [address] WBC 0 SEEN Normal 0-[address] [facility] Comment on above: Order Comment: CLEAN CATCH Result Comment: WRON G Performed By: #### L 502.0250, L400.0001 ####[facility] [address] [place], [address] BILIRUBIN URINE Normal Negative [facility] Comment on above: Order Comment: CLEAN CATCH Result Comment: WRON G Performed By: #### L 502.0250, L400.0001 ####[facility] [address] [place], [address] Clarity (U) Normal Clear [facility] Comment on above: Order Comment: CLEAN CATCH Result Comment: WRON G Performed By: #### L 502.0250, L400.0001 ####[facility] [address] [place], [address] Color (U) Normal Yellow [facility] Comment on above: Order Comment: CLEAN CATCH Result Comment: WRON G Performed By: #### L 502.0250, L400.0001 ####[facility] [address] [place], [address] GLUCOSE, UR Normal Normal [facility] Comment on above: Order Comment: CLEAN CATCH Result Comment: WRON G Performed By: #### L 502.0250, L400.0001 ####[facility] [address] [place], [address] KETONE UR Normal Negative [facility] Comment on above: Order Comment: CLEAN CATCH Result Comment: WRON G Performed By: #### L 502.0250, L400.0001 ####[facility] [address] [place], [address] LEUK ESTERASE Normal Negative [facility] Comment on above: Order Comment: CLEAN CATCH Result Comment: WRON G Performed By: #### L 502.0250, L400.0001 ####[facility] [address] [place], [address] Nitrite Ql (U) Normal Negative [facility] Comment on above: Order Comment: CLEAN CATCH Result Comment: WRON G Performed By: #### L 502.0250, L400.0001 ####[facility] [address] [place], [address] OCCULT BLOOD-UR Normal Negative [facility] Comment on above: Order Comment: CLEAN CATCH Result Comment: WRON G Performed By: #### L 502.0250, L400.0001 ####[facility] [address] [place], [address] pH UR Normal 5.0 - 8.[address] [facility] Comment on above: Order Comment: CLEAN CATCH Result Comment: WRON G Performed By: #### L 502.0250, L400.0001 ####[facility] [address] [place], [address] PROT DIPSTX Normal Negative [facility] Comment on above: Order Comment: CLEAN CATCH Result Comment: WRON G Performed By: #### L 502.0250, L400.0001 ####[facility] [address] [place], [address] SP.GR. DIPSTX Normal 1.002-1.[address] [facility] Comment on above: Order Comment: CLEAN CATCH Result Comment: WRON G Performed By: #### L 502.0250, L400.0001 ####[facility] [address] [place], [address] UR Preservative Normal [facility] Comment on above: Order Comment: CLEAN CATCH Result Comment: WRON G Performed By: #### L 502.0250, L400.0001 ####[facility] [address] [place], [address] UROBILI Normal Normal [facility] Comment on above: Order Comment: CLEAN CATCH Result Comment: WRON G Performed By: #### L 502.0250, L400.0001 ####[facility] [address] [place], [address] Urine albumin measurement [facility] detection limit of 20 mg/L or less (mass/volume)Ordered By: Marilyn Gordon on 11-16-2024 Albumin DL <= 20 mg/L (U) [Mass/Vol] < 12.0 mg/L <20 mg/L [facility] Absolute lymphocyte countOrd ered By: HEALTH ASSESSMENT on 10-21-2024 Lymphocytes Auto (Unsp spec) [#/Vol] 1.62 10*3/uL 0.83-4.[address] [facility] Absolute neutrophil countOrd ered By: HEALTH ASSESSMENT on 10-21-2024 Neutrophils (Bld) [#/Vol] 5.7 10*3/uL 2.0-7.[address] [facility] Absolute nucleated red blood cell countOrdered By: HEALTH ASSESSMENT on 10-21-2024 Nucleated RBC (Bld) [#/Vol] 0.00 10*3/uL 0-[address] [facility] Anion gap in Serum or Plasma Ordered By: HEALTH ASSESSMENT on 10-21-2024 Anion gap [Moles/Vol] 10 mmol/L 5- [facility] BUN/creatinine ratioOrdered By: HEALTH ASSESSMENT on 10-21-2024 Urea nitrogen/Creatinine [Mass ratio] 19.2 mg/mg 10-[address] [facility] Bilirubin Test strip Ql (U)O rdered By: HEALTH ASSESSMENT on 10-21-2024 Bilirubin Ql (U) Negative Negative [facility] Bilirubin directOrdered By: HEALTH ASSESSMENT on 10-21-2024 Bilirubin.direct [Mass/Vol] 0.18 mg/dL 0.00-0.[address] [facility] Bilirubin, totalOrdered By: HEALTH ASSESSMENT on 10-21-2024 Bilirubin [Mass/Vol] 0.38 mg/dL 0.00-1.30 [facility] Blood band neutrophil count as percentage of total leukocytesOrdered By: HEALTH ASSESSMENT on 10-21-2024 Band form neutrophils/100 WBC (Bld) 69.0 % 47-[address] [facility] CBC, Employeeon 10-21-2024 Absolute Lymph 1.62 X10 3/uL Normal 0.83-4.[address] [facility] Comment on above: Performed By: #### L 100.0200, L400.0100, L500.2900 #### [facility] [address] [place], [address] Absolute Neut 5.7 X10 3/uL Normal 2.0-7.[address] [facility] Comment on above: Performed By: #### L 100.0200, L400.0100, L500.2900 #### [facility] [address] [place], [address] Basophils/100 WBC (Bld) 0.2 % Normal 0-1 [facility] Comment on above: Performed By: #### L 100.0200, L400.0100, L500.2900 #### [facility] [address] [place], [address] Eosinophils/100 WBC (Bld) 1.2 % Normal 0-[address] [facility] Comment on above: Performed By: #### L 100.0200, L400.0100, L500.2900 #### [facility] [address] [place], [address] Erythrocyte distribution width (RBC) [Ratio] 13.4 % Normal 11.6-14.[address] [facility] Comment on above: Performed By: #### L 100.0200, L400.0100, L500.2900 #### [facility] [address] [place], [address] Hematocrit (Bld) [Volume fraction] 40.6 % Normal 40-[address] [facility] Comment on above: Performed By: #### L 100.0200, L400.0100, L500.2900 #### [facility] [address] [place], [address] Hemoglobin (Bld) [Mass/Vol] 14.0 g/dL Normal 13.0-16.[address] [facility] Comment on above: Performed By: #### L 100.0200, L400.0100, L500.2900 #### [facility] [address] [place], [address] Lymphocytes/100 WBC (Bld) 19.7 % Normal 19-[address] [facility] Comment on above: Performed By: #### L 100.0200, L400.0100, L500.2900 #### [facility] [address] [place], [address] MCH (RBC) [Entitic mass] 32.6 pg High 27.0-32.[address] [facility] Comment on above: Performed By: #### L 100.0200, L400.0100, L500.2900 #### [facility] [address] [place], [address] MCHC (RBC) [Mass/Vol] 34.5 g/dL Normal 32-36 [facility] [facility] Comment on above: Performed By: #### L 100.0200, L400.0100, L500.2900 #### [facility] [address] [place], [address] MCV (RBC) [Entitic vol] 94.6 fL High 80-94 [facility] Comment on above: Performed By: #### L 100.0200, L400.0100, L500.2900 #### [facility] [address] [place], [address] Monocytes/100 WBC (Bld) 9.0 % Normal 0-10 [facility] Comment on above: Performed By: #### L 100.0200, L400.0100, L500.2900 #### [facility] [address] [place], [address] Neutrophils/100 WBC (Bld) 69.0 % Normal 47-[address] [facility] Comment on above: Performed By: #### L 100.0200, L400.0100, L500.2900 #### [facility] [address] [place], [address] NRBC # 0.00 10 3/uL Normal 0-[address] [facility] Comment on above: Performed By: #### L 100.0200, L400.0100, L500.2900 #### [facility] [address] [place], [address] Nucleated RBC (Bld) [#/Vol] 0 10*3/uL Normal 0-[address] [facility] Comment on above: Performed By: #### L 100.0200, L400.0100, L500.2900 #### [facility] [address] [place], [address] Platelet mean volume (Bld) [Entitic vol] 10.6 fL Normal 6.2-12.[address] [facility] Comment on above: Performed By: #### L 100.0200, L400.0100, L500.2900 #### [facility] [address] [place], [address] Platelets (Bld) [#/Vol] 226 10*3/uL Normal 150-[address] [facility] Comment on above: Performed By: #### L 100.0200, L400.0100, L500.2900 #### [facility] [address] [place], [address] RBC (Bld) [#/Vol] 4.29 10*6/uL Low 4.6-6.2 [facility] Comment on above: Performed By: #### L 100.0200, L400.0100, L500.2900 #### [facility] [address] [place], [address] RDW SD 46.9 fl High 35.1-43.[address] [facility] Comment on above: Performed By: #### L 100.0200, L400.0100, L500.2900 #### [facility] [address] [place], [address] WBC (Bld) [#/Vol] 8.2 10*3/uL Normal 4.4-11.0 [facility] Comment on above: Performed By: #### L 100.0200, L400.0100, L500.2900 #### [facility] [address] [place], [address] Calculated very low density lipoprotein (VLDL) cholesterol measurementOrdered By: HEALTH ASSESSMENT on 10-21-2024 Calculated very low density lipoprotein (VLDL) cholesterol measurement 21 mg/dL 5-[address] [facility] Carbon dioxide, total [Moles /volume] in Central venous bloodOrdered By: HEALTH ASSESSMENT on 10-21-2024 CO2 [Moles/Vol] 23.6 mmol/L 21.0-32.[address] [facility] Chloride assayOrdered By: HE ALTH ASSESSMENT on 10-21-2024 Chloride [Moles/Vol] 104 mmol/L 98-108 [facility] Employee Profileon CHOL:HDL 3.[address] [facility] Comment on above: Order Comment: SEND NIKKI BARNETT,LIPID Performed By: #### L 100.0200, L400.0100, L500.2900 ####[facility] [address] [place], [address] Cholesterol [Mass/Vol] 138 mg/dL Normal <=200 [facility] Comment on above: Order Comment: SEND NIKKI BARNETT,LIPID Result Comment: Chol esterol level, Desirable <200 mg/dL Borderline high cholesterol 200-239 mg/dL High cholesterol >=240 mg/dL Recommendations of the NCEP Adult Treatment Panel for the following risk-cutoff thresholds for the [place] population. Performed By: #### L 100.0200, L400.0100, L500.2900 ####[facility] [address] [place], [address] Cholesterol in HDL [Mass/Vol] 38 mg/dL Low [facility] Comment on above: Order Comment: SEND NIKKI [facility],LIPID Result Comment: Maira onal Cholesterol Education Program (NCEP) guidelines: <40 mg/dL: Low HDL-cholesterol (major risk factor for CHD) >= 60 mg/dL: High HDL-cholesterol (negative risk factor for CHD) HDL-cholesterol is affected by a number of factors, e.g. smoking, exercise, hormones, sex and age. Performed By: #### L 100.0200, L400.0100, L500.2900 ####[facility] [address] [place], [address] Cholesterol in LDL [Mass/Vol] 79 mg/dL Normal [facility] Comment on above: Order Comment: SEND NIKKI [facility],LIPID Result Comment: Bord hmidyr=077-649 mg/dL Higher Znbq=066 mg/dL or greater Friedwald Equation for LDL-C Performed By: #### L 100.0200, L400.0100, L500.2900 ####[facility] [address] [place], [address] Cholesterol in VLDL [Mass/Vol] 21 mg/dL Normal 5-[address] [facility] Comment on above: Order Comment: SEND SOUND PERSON.ANDREEA CMP,LIPID Performed By: #### L 100.0200, L400.0100, L500.2900 ####[facility] [address] [place], [address] LDH 182 U/L Normal 87-[address] [facility] Comment on above: Order Comment: SEND SOUND PERSON.ANDREEA CMP,LIPID Performed By: #### L 100.0200, L400.0100, L500.2900 ####[facility] [address] [place], [address] Phosphate [Mass/Vol] 3.2 mg/dL Normal 2.7-4.5 [facility] Comment on above: Order Comment: SEND SOUND PERSON.ANDREEA CMP,LIPID Performed By: #### L 100.0200, L400.0100, L500.2900 ####[facility] [address] [place], [address] Triglyceride [Mass/Vol] 106 mg/dL Normal [facility] Comment on above: Order Comment: SEND SOUND PERSON.ANDREEA CMP,LIPID Result Comment: The drugs N-Acetylcysteine and Metamizole may falsely depress this assay. Normal range: <150 mg/dL Borderline High: 150-199 mg/dL High: 200-499 mg/dL Very High: >500 mg/dL Performed By: #### L 100.0200, L400.0100, L500.2900 ####[facility] [address] [place], [address] URIC 8.8 mg/dL High 3.5-7.[address] [facility] Comment on above: Order Comment: SEND SOUND PERSON.ANDREEA CMP,LIPID Result Comment: The drugs N-Acetylcysteine and Metamizole may falsely depress this assay. Performed By: #### L 100.0200, L400.0100, L500.2900 ####[facility] [address] [place], [place], [address] Erythrocyte distribution wid th ratioOrdered By: HEALTH ASSESSMENT on 10-21-2024 Erythrocyte distribution width (RBC) [Ratio] 13.4 % 11.6-14.[address] [facility] Erythrocyte distribution wid th standard deviationOrdered By: HEALTH ASSESSMENT on 10-21-2024 Erythrocyte distribution width (RBC) [Ratio] 46.9 fl High 35.1-43.[address] [facility] Glomerular filtration rate ( GFR) estimation/1.73 sq m using serum, plasma, or whole bOrdered By: HEALTH ASSESSMENT on 10-21-2024 GFR/1.73 sq M.predicted among non-blacks MDRD (S/P/Bld) [Vol rate/Area] 78 mL/min/{1.73_m2} >[address] [facility] Comment on above: mL/min/1.73m2 CKD-EP I Creatinine Equation (2020) Hematocrit Auto (Bld) [Volum e fraction]Ordered By: HEALTH ASSESSMENT on 10-21-2024 Hematocrit (Bld) [Volume fraction] 40.6 % 40-[address] [facility] Hemoglobin A1con 10-21-2024 HbA1c (Bld) [Mass fraction] 5.8 % High <=5.[address] [facility] Comment on above: Result Comment: Norm al < 5.7 % Prediabetic 5.7 - 6.4 % Diabetic >or= 6.5 % Please note range changes. Performed By: #### L 501.9985, L3890.6301, L501.9910 #### [facility] [address] [place], [place], [address] Hemoglobin A1c percentageOrd ered By: Marilyn Gordon on 10-21-2024 HbA1c (Bld) [Mass fraction] 5.8 % High <5.[address] [facility] Comment on above: Normal < 5.7 % Predi abetic 5.7 - 6.4 % Diabetic >or= 6.5 % Please note range changes. Hemoglobin measurementOrdere d By: HEALTH ASSESSMENT on 10-21-2024 Hemoglobin (Bld) [Mass/Vol] 14.0 g/dL 13.0-16.[address] [facility] Hepatitis C Antibodyon 10-21 Hepatitis C Ab Non-Reactive Normal Nonreactive [facility] Comment on above: Result Comment: Reac tive: Presumptive evidence of antibodies to HCV. Follow CDC recommendations for supplemental testing. Non-Reactive: Antibodies to HCV were not detected; does not exclude the possibility of exposure to HCV Reactive Results are presumptive evidence of antibodies to HCV. Follow CDC recommendations for supplemental testing. Order confirmation testing: HCV Quant by PCR testing - HCVPCR #[id number] Non Reactive: < 0.8 Equivocal: >/= 0.8 to < 1.0 Reactive: >/= 1.0 The CDC requires that a reactive/equivocal HCV antibody result be sent out for confirmation. HCV Quant by PCR testing. Performed By: #### L 501.9985, L3890.6301, L501.9910 #### [facility] [address] [place], [address] Ketones Test strip Ql (U)Ord ered By: HEALTH ASSESSMENT on 10-21-2024 Ketones Ql (U) Negative Negative [facility] LDL calc ser/plasOrdered By: HEALTH ASSESSMENT on 10-21-2024 Cholesterol in LDL [Mass/Vol] 79 mg/dL [facility] Comment on above: Vfihdhfccm=208-795 m g/dL & Higher Npvp=635 mg/dL or greaterFriedwald Equation for LDL-C Laboratory - Chemistry and C hemistry - challengeOrdered By: HEALTH ASSESSMENT on 10-21-2024 AST [Catalytic activity/Vol] 29 U/L <[address] [facility] Lactate dehydrogenase (LDH) measurementOrdered By: HEALTH ASSESSMENT on 10-21-2024 LDH [Catalytic activity/Vol] 182 U/L 87-[address] [facility] MCV (mean corpuscular volume ) determinationOrdered By: HEALTH ASSESSMENT on 10-21-2024 MCV (RBC) [Entitic vol] 94.6 fL High 80-94 [facility] Mean corpuscular hemoglobin (MCH) determinationOrdered By: HEALTH ASSESSMENT on 10-21-2024 MCH (RBC) [Entitic mass] 32.6 pg High 27.0-32.[address] [facility] Mean corpuscular hemoglobin concentration (MCHC) determinationOrdered By: HEALTH ASSESSMENT on 10-21-2024 MCHC (RBC) [Mass/Vol] 34.5 g/dL 32-36 [facility] Mean platelet volume determi nationOrdered By: HEALTH ASSESSMENT on 10-21-2024 Platelet mean volume (Bld) [Entitic vol] 10.6 fL 6.2-12.[address] [facility] Nitrite Test strip Ql (U)Ord ered By: HEALTH ASSESSMENT on 10-21-2024 Nitrite Ql (U) Negative Negative [facility] Nucleated red blood cell per centageOrdered By: HEALTH ASSESSMENT on 10-21-2024 Nucleated RBC/100 WBC (Bld) [Ratio] 0 % 0-[address] [facility] PSA,Total - Annual Screenon 10-21-2024 PSA,TOT SCREEN 0.74 ng/mL Normal 0.02-4.[address] [facility] Comment on above: Result Comment: This test was performed using the [employer] tPSA method. Measured values of a patient??sample can vary depending on the testing procedure used. PSA values determined on patient samples by different testing procedures cannot be used interchangeably. If there is a change in PSA assays while monitoring therapy, sequential testing should be performed to confirm baseline values. Performed By: #### L 501.9985, L3890.6301, L501.9910 #### [facility] [address] [place], [address] Platelet countOrdered By: BETZY ALTH ASSESSMENT on 10-21-2024 Platelets (Bld) [#/Vol] 226 10*3/uL 150-[address] [facility] Potassium measurement (mass/ volume)Ordered By: HEALTH ASSESSMENT on 10-21-2024 Potassium (Unsp spec) [Mass/Vol] 4.5 mmol/L 3.3-5.[address] [facility] Protein Test strip Ql (U)Ord ered By: HEALTH ASSESSMENT on 10-21-2024 Protein Ql (U) 15 mg/dl High Negative [facility] RBC Auto (Bld) [#/Vol]Ordere d By: HEALTH ASSESSMENT on 10-21-2024 RBC (Bld) [#/Vol] 4.29 10*6/uL Low 4.6-6.2 [facility] Screening total cholesterol/ high density lipoprotein (HDL) cholesterol ratioOrdered By: HEALTH ASSESSMENT on 10-21-2024 Cholesterol.total/Choles terol in HDL [Mass ratio] 3.68 {ratio} [facility] Serum creatinine measurement (mass/volume)Ordered By: HEALTH ASSESSMENT on 10-21-2024 Creatinine [Mass/Vol] 1.11 mg/dL 0.70-1.20 [facility] Serum globulin measurementOr dered By: HEALTH ASSESSMENT on 10-21-2024 Globulin (S) [Mass/Vol] 2.7 g/dL 2.2-4.2 [facility] Serum glucose measurement (m ass/volume)Ordered By: HEALTH ASSESSMENT on 10-21-2024 Glucose [Mass/Vol] 114 mg/dL High 70-99 [facility] Serum or plasma alanine aguilera otransferase (ALT) measurementOrdered By: HEALTH ASSESSMENT on 10-21-2024 ALT [Catalytic activity/Vol] 28 U/L <[address] [facility] Serum or plasma albumin danica urement (mass/volume)Ordered By: HEALTH ASSESSMENT on 10-21-2024 Albumin [Mass/Vol] 4.0 g/dL 3.5-5.0 [facility] Serum or plasma albumin/glob ulin mass ratioOrdered By: HEALTH ASSESSMENT on 10-21-2024 Albumin/Globulin [Mass ratio] 1.4 {ratio} 0.9-2.[address] [facility] Serum or plasma alkaline medina sphatase measurementOrdered By: HEALTH ASSESSMENT on 10-21-2024 ALP [Catalytic activity/Vol] 102 U/L 40-[address] [facility] Serum or plasma calcium danica urement (mass/volume)Ordered By: HEALTH ASSESSMENT on 10-21-2024 Calcium [Mass/Vol] 9.0 mg/dL 7.6-11.0 [facility] Serum or plasma cholesterol in HDL measurement (mass/volume)Ordered By: HEALTH ASSESSMENT on 10-21-2024 Cholesterol in HDL [Mass/Vol] 38 mg/dL Low >[address] [facility] Comment on above: National Cholesterol Education Program (NCEP) guidelines:<40 mg/dL: Low HDL-cholesterol (major risk factor for CHD)>= 60 mg/dL: High HDL-cholesterol (negative risk factor for CHD)HDL-cholesterol is affected by a number of factors, e.g. smoking, exercise, hormones, sex and age. Serum or plasma cholesterol measurement (mass/volume)Ordered By: HEALTH ASSESSMENT on 10-21-2024 Cholesterol [Mass/Vol] 138 mg/dL <[address] [facility] Comment on above: Cholesterol level, D esirable <200 mg/dLBorderline high cholesterol 200-239 mg/dLHigh cholesterol >=240 mg/dLRecommendations of the NCEP Adult Treatment Panel for the following risk-cutoff thresholds for the [place] population. Serum or plasma urea nitroge n measurement (mass/volume)Ordered By: HEALTH ASSESSMENT on 10-21-2024 Urea nitrogen [Mass/Vol] 21 mg/dL High 4-[address] [facility] Serum or plasma uric acid me asurement (mass/volume)Ordered By: [facility] ASSESSMENT on 10-21-2024 Urate [Mass/Vol] 8.8 mg/dL High 3.5-7.[address] [facility] Comment on above: The drugs N-Acetylcy steine and Metamizole may falsely depress this assay. Sodium levelOrdered By: HEAL ASSESSMENT on 10-21-2024 Sodium [Moles/Vol] 138 mmol/L 133-145 [facility] Total proteinOrdered By: [facility] ASSESSMENT on 10-21-2024 Protein [Mass/Vol] 6.7 g/dL 5.9-8.4 [facility] Triglycerides measurementOrd ered By: HEALTH ASSESSMENT on 10-21-2024 Triglyceride [Mass/Vol] 106 mg/dL <199 [facility] Comment on above: The drugs N-Acetylcy steine and Metamizole may falsely depress this assay. Normal range: <150 mg/dLBorderline High: 150-199 mg/dLHigh: 200-499 mg/dLVery High: >500 mg/dL Urinalysis, Employeeon 10-21 Clarity (U) Clear Normal Clear [facility] Comment on above: Order Comment: Urine , Random Performed By: #### L 100.0200, L400.0100, L500.2900 #### [facility] [address] [place], [address] Color (U) Yellow Normal Yellow [facility] Comment on above: Order Comment: Urine , Random Performed By: #### L 100.0200, L400.0100, L500.2900 #### [facility] [address] [place], [address] BILIRUBIN URINE Negative Normal Negative [facility] Comment on above: Order Comment: Urine , Random Performed By: #### L 100.0200, L400.0100, L500.2900 #### [facility] [address] [place], [address] GLUCOSE, UR Normal Normal Normal [facility] Comment on above: Order Comment: Urine , Random Performed By: #### L 100.0200, L400.0100, L500.2900 #### [facility] [address] [place], [address] KETONE UR Negative Normal Negative [facility] Comment on above: Order Comment: Urine , Random Performed By: #### L 100.0200, L400.0100, L500.2900 #### [facility] [address] [place], [address] LEUK ESTERASE Negative Normal Negative [facility] Comment on above: Order Comment: Urine , Random Performed By: #### L 100.0200, L400.0100, L500.2900 #### [facility] [address] [place], [address] Nitrite Ql (U) Negative Normal Negative [facility] Comment on above: Order Comment: Urine , Random Performed By: #### L 100.0200, L400.0100, L500.2900 #### [facility] [address] [place], [address] OCCULT BLOOD-UR 10 /ul Abnormal Negative [facility] Comment on above: Order Comment: Urine , Random Performed By: #### L 100.0200, L400.0100, L500.2900 #### [facility] [address] [place], [address] pH UR 6.0 Normal 5.0 - 8.[address] [facility] Comment on above: Order Comment: Urine , Random Performed By: #### L 100.0200, L400.0100, L500.2900 #### [facility] [address] [place], [address] PROT DIPSTX 15 mg/dl Abnormal Negative [facility] Comment on above: Order Comment: Urine , Random Performed By: #### L 100.0200, L400.0100, L500.2900 #### [facility] [address] [place], [address] SP.GR. DIPSTX 1.020 Normal 1.002-1.[address] [facility] Comment on above: Order Comment: Urine , Random Performed By: #### L 100.0200, L400.0100, L500.2900 #### [facility] [address] [place], [address] UROBILI Normal Normal Normal [facility] Comment on above: Order Comment: Urine , Random Performed By: #### L 100.0200, L400.0100, L500.2900 #### [facility] [address] [place], [address] Urine clarityOrdered By: [facility] ASSESSMENT on 10-21-2024 Clarity (U) Clear Clear [facility] Urine color determinationOrd ered By: HEALTH ASSESSMENT on 10-21-2024 Color (U) Yellow Yellow [facility] Urine glucose detectionOrder ed By: HEALTH ASSESSMENT on 10-21-2024 Glucose Ql (U) Normal mg/dl Normal [facility] Urine leukocyte esterase det ection by dipstickOrdered By: HEALTH ASSESSMENT on 10-21-2024 Leukocyte esterase Test strip Ql (U) Negative Negative [facility] Urine pHOrdered By: HEALTH A SSESSMENT on 10-21-2024 pH (U) 6.0 [pH] 5.0 - 8.[address] [facility] Urine specific gravity measu rementOrdered By: HEALTH ASSESSMENT on 10-21-2024 Specific gravity (U) [Rel density] 1.020 1.002-1.[address] [facility] Urine urobilinogen measureme ntOrdered By: HEALTH ASSESSMENT on 10-21-2024 Urobilinogen Ql (U) Normal mg/dl Normal [facility] White blood cell (WBC) count Ordered By: HEALTH ASSESSMENT on 10-21-2024 WBC (Bld) [#/Vol] 8.2 10*3/uL 4.4-11.0 [facility] Cardiology Visit Reporton Cardiology Visit Report [facility] 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 Normal [facility] Office Visit Reporton 2024 Office Visit Report [facility] [address] [place] [address] OFFICE VISIT Date of Service: 07/22/24 MR#: [id number] Acct: [id number] Patient: MICHAELLEKAMALA ADY Christiansen Rep #: [id number] : 1970 Provider: DI Mota Age/Sex: 54/M [place] [facility] [place] Status: Signed Employer Purchased Covid Test Note: Patient here today for Covid Testing, requested by their Employer. [facility] Billing Sheet Covid Covid Swab-Rapid: Yes 10/06/24 1137 Date Sylvain SEVILLA Cosigner Signature: Date (if applicable) CC: Normal [facility] - Microbiology an d Antimicrobial susceptibilityOrdered By: Sylvain Adler on 07-22-2024 SARS-CoV-2 (COVID-19) RNA RANDALL+probe Ql (Unsp spec) Not detected [facility] No Panel InformationOrdered By: Sylvain Adler on 07-22-2024 POC Nasal Swab Influenza A,B Not detected [facility] POC Nasal Swab RSV Not detected [facility] Office Visit Reporton 2024 Office Visit Report [facility] [address] [place] [address] OFFICE VISIT Date of Service: 07/22/24 MR#: [id number] Acct: [id number] Patient: MICHAELLEKAMALA Jr. Rep #: [id number] : 1970 Provider: DI Mota Age/Sex: 53/M [place] [facility] [place] Status: Signed Employer Purchased Covid Test Note: Patient here today for Covid Testing, requested by their Employer. Assessment and Plan Assessment and Plan Orders: Orders POC Cepheid Covid, FluAB, RSV Today 07/22/24 0842 Date Sylvain SEVILLA Cosigner Signature: Date (if applicable) CC: Normal [facility] Urgent Care Visit Reporton 0 07-22-2024 Urgent Care Visit Report [facility] [address], [address] [place] [address] OFFICE VISIT Date of Service: 07/22/24 MR#: [id number] Acct: [id number] Name: KAMALA BRASWELL Jr. 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 [facility] Medical History Hordeolum externum left lower eyelid [...] Exam Const General: cooperative and well developed HENMT Head: normal to inspection and atraumatic Ears: [...] past year?: No 07/22/24 0844 Date Sylvain SEVILLA Cosigner Signature: Date (if applicable) CC: Normal [facility] L501.5101on 07-15-2024 GGTP 27 IU/L Normal 0-[address] [facility] Comment on above: Order Comment: LIVER CMP TESTS OVERLAP-[facility]ED [facility] LIPID-MCCONNELLOTHER TESTS-JUANA Result Comment: Perf ormed at: - [facility] [address] [id number] Acetylene Torch Operator: Ruben Madison PhD, Phone: [phone] Performed By: #### L 500.4100, L501.5101, L100.0500, L500.4050, L501.9310, L501.4700, L501.9520 ####[facility] [address] [place], [place], [phone] Anion gap in Serum or Plasma Ordered By: Lyla Bernard on 07-14-2024 Anion gap [Moles/Vol] 12 mmol/L 5- [facility] BUN/creatinine ratioOrdered By: Lyla Bernard on 07-14-2024 Urea nitrogen/Creatinine [Mass ratio] 17.4 mg/mg 12-[address] [facility] Bilirubin directOrdered By: Lyla Bernard on 07-14-2024 Bilirubin.direct [Mass/Vol] 0.19 mg/dL 0.00-0.[address] [facility] Bilirubin, Directon 07-15-19 25 Bilirubin.direct [Mass/Vol] 0.19 mg/dL Normal 0.00-0.[address] [facility] Comment on above: Order Comment: LIVER CMP TESTS OVERLAP-ORDERED [facility] LIPID-MCCONNELLOTHER TESTS-JABOUR Performed By: #### L 500.4100, L501.5101, L100.0500, L500.4050, L501.9310, L501.4700, L501.9520 ####[facility] [address] [place], [place], [phone] Bilirubin, totalOrdered By: Lyla Bernard on 07-14-2024 Bilirubin [Mass/Vol] 0.49 mg/dL 0.00-1.30 [facility] CBC-Complete Blood Cnt No Di ffon 07-14-2024 Erythrocyte distribution width (RBC) [Ratio] 13.1 % Normal 11.6-14.[address] [facility] Comment on above: Order Comment: LIVER CMP TESTS OVERLAP-ORDERED DBILLIVER LIPID-MCCONNELLOTHER TESTS-JABOUR Performed By: #### L 500.4100, L501.5101, L100.0500, L500.4050, L501.9310, L501.4700, L501.9520 ####[facility] [address] [place], [address] Hematocrit (Bld) [Volume fraction] 40.8 % Normal 40-[address] [facility] Comment on above: Order Comment: LIVER CMP TESTS OVERLAP-ORDERED [facility] LIPID-MCCONNELLOTHER TESTS-JABOUR Performed By: #### L 500.4100, L501.5101, L100.0500, L500.4050, L501.9310, L501.4700, L501.9520 ####[facility] [address] [place], [place], [phone] Hemoglobin (Bld) [Mass/Vol] 14.0 g/dL Normal 13.0-16.[address] [facility] Comment on above: Order Comment: LIVER CMP TESTS OVERLAP-ORDERED [facility] LIPID-MCCONNELLOTHER TESTS-JABOUR Performed By: #### L 500.4100, L501.5101, L100.0500, L500.4050, L501.9310, L501.4700, L501.9520 ####[facility] [address] [place], [address] MCH (RBC) [Entitic mass] 31.7 pg Normal 27.0-32.[address] [facility] Comment on above: Order Comment: LIVER CMP TESTS OVERLAP-ORDERED DBILLIVER LIPID-MCCONNELLOTHER TESTS-JABOUR Performed By: #### L 500.4100, L501.5101, L100.0500, L500.4050, L501.9310, L501.4700, L501.9520 ####[facility] [address] [place], [address] MCHC (RBC) [Mass/Vol] 34.3 g/dL Normal 32-36 [facility] Comment on above: Order Comment: LIVER CMP TESTS OVERLAP-ORDERED DBILLIVER LIPID-MCCONNELLOTHER TESTS-JABOUR Performed By: #### L 500.4100, L501.5101, L100.0500, L500.4050, L501.9310, L501.4700, L501.9520 ####[facility] [address] [place], [address] MCV (RBC) [Entitic vol] 92.5 fL Normal 80-94 [facility] Comment on above: Order Comment: LIVER CMP TESTS OVERLAP-ORDERED DBILLIVER LIPID-MCCONNELLOTHER TESTS-JABOUR Performed By: #### L 500.4100, L501.5101, L100.0500, L500.4050, L501.9310, L501.4700, L501.9520 ####[facility] [address] [place], [address] Platelet mean volume (Bld) [Entitic vol] 10.8 fL Normal 6.2-12.[address] [facility] Comment on above: Order Comment: LIVER CMP TESTS OVERLAP-ORDERED DBILLIVER LIPID-MCCONNELLOTHER TESTS-JABOUR Performed By: #### L 500.4100, L501.5101, L100.0500, L500.4050, L501.9310, L501.4700, L501.9520 ####[facility] [address] [place], [address] Platelets (Bld) [#/Vol] 268 10*3/uL Normal 150-[address] [facility] Comment on above: Order Comment: LIVER CMP TESTS OVERLAP-ORDERED DBILLIVER LIPID-MCCONNELLOTHER TESTS-JABOUR Performed By: #### L 500.4100, L501.5101, L100.0500, L500.4050, L501.9310, L501.4700, L501.9520 ####[facility] [address] [place], [place], [phone] RBC (Bld) [#/Vol] 4.41 10*6/uL Low 4.6-6.2 [facility] Comment on above: Order Comment: LIVER CMP TESTS OVERLAP-ORDERED DBILLIVER LIPID-MCCONNELLOTHER TESTS-JABOUR Performed By: #### L 500.4100, L501.5101, L100.0500, L500.4050, L501.9310, L501.4700, L501.9520 ####[facility] [address] [place], [address] RDW SD 44.5 fl High 35.1-43.[address] [facility] Comment on above: Order Comment: LIVER CMP TESTS OVERLAP-ORDERED DBILLIVER LIPID-MCCONNELLOTHER TESTS-JABOUR Performed By: #### L 500.4100, L501.5101, L100.0500, L500.4050, L501.9310, L501.4700, L501.9520 ####[facility] [address] [place], [place], [phone] WBC (Bld) [#/Vol] 10.2 10*3/uL Normal 4.4-11.0 [facility] Comment on above: Order Comment: LIVER CMP TESTS OVERLAP-ORDERED DBILLIVER LIPID-MCCONNELLOTHER TESTS-JABOUR Performed By: #### L 500.4100, L501.5101, L100.0500, L500.4050, L501.9310, L501.4700, L501.9520 ####[facility] [address] [place], [place], [phone] Calculated very low density lipoprotein (VLDL) cholesterol measurementOrdered By: Lyla Bernard on 05-08-2025 Calculated very low density lipoprotein (VLDL) cholesterol measurement 31 mg/dL 5-[address] [facility] Carbon dioxide, total [Moles /volume] in Central venous bloodOrdered By: Lyla Bernard on 07-14-2024 CO2 [Moles/Vol] 23.0 mmol/L 21.0-32.[address] [facility] Chloride assayOrdered By: Genie Bernard on 07-14-2024 Chloride [Moles/Vol] 103 mmol/L 98-108 [facility] Comprehensive Metabolic Prof ilon 07-14-2024 Albumin [Mass/Vol] 3.9 g/dL Normal 3.5-5.0 [facility] Comment on above: Order Comment: LIVER CMP TESTS OVERLAP-ORDERED [facility] LIPID-MCCONNELLOTHER TESTS-JABOUR Performed By: #### L 500.4100, L501.5101, L100.0500, L500.4050, L501.9310, L501.4700, L501.9520 ####[facility] [address] [place], [place], [phone] Albumin/Globulin [Mass ratio] 1.4 {ratio} Normal 0.9-2.[address] [facility] Comment on above: Order Comment: LIVER CMP TESTS OVERLAP-ORDERED [facility] LIPID-MCCONNELLOTHER TESTS-MODESTOBOUR Performed By: #### L 500.4100, L501.5101, L100.0500, L500.4050, L501.9310, L501.4700, L501.9520 ####[facility] [address] [place], [place], [phone] ALK PHOS 102 U/L Normal 40-[address] [facility] Comment on above: Order Comment: LIVER CMP TESTS OVERLAP-ORDERED [facility] LIPID-MCCONNELLOTHER TESTS-JABOUR Performed By: #### L 500.4100, L501.5101, L100.0500, L500.4050, L501.9310, L501.4700, L501.9520 ####[facility] [address] [place], [address] ALT [Catalytic activity/Vol] 29 U/L Normal <=[address] [facility] Comment on above: Order Comment: LIVER CMP TESTS OVERLAP-ORDERED DBILLIVER LIPID-MCCONNELLOTHER TESTS-JABOUR Performed By: #### L 500.4100, L501.5101, L100.0500, L500.4050, L501.9310, L501.4700, L501.9520 ####[facility] [address] [place], [address] AST [Catalytic activity/Vol] 26 U/L Normal <=[address] [facility] Comment on above: Order Comment: LIVER CMP TESTS OVERLAP-ORDERED DBILLIVER LIPID-MCCONNELLOTHER TESTS-JABOUR Performed By: #### L 500.4100, L501.5101, L100.0500, L500.4050, L501.9310, L501.4700, L501.9520 ####[facility] [address] [place], [address] Bilirubin [Mass/Vol] 0.49 mg/dL Normal 0.00-1.30 [facility] Comment on above: Order Comment: LIVER CMP TESTS OVERLAP-ORDERED [facility] LIPID-MCCONNELLOTHER TESTS-JABOUR Performed By: #### L 500.4100, L501.5101, L100.0500, L500.4050, L501.9310, L501.4700, L501.9520 ####[facility] [address] [place], [address] BUN/CRE 17.4 RATIO Normal 10-[address] [facility] Comment on above: Order Comment: LIVER CMP TESTS OVERLAP-ORDERED [facility] LIPID-MCCONNELLOTHER TESTS-JABOUR Performed By: #### L 500.4100, L501.5101, L100.0500, L500.4050, L501.9310, L501.4700, L501.9520 ####[facility] [address] [place], [address] Calcium [Mass/Vol] 8.9 mg/dL Normal 7.6-11.0 [facility] Comment on above: Order Comment: LIVER CMP TESTS OVERLAP-ORDERED DBILLIVER LIPID-MCCONNELLOTHER TESTS-JABOUR Performed By: #### L 500.4100, L501.5101, L100.0500, L500.4050, L501.9310, L501.4700, L501.9520 ####[facility] [address] [place], [address] Chloride [Moles/Vol] 103 mmol/L Normal 98-108 [facility] Comment on above: Order Comment: LIVER CMP TESTS OVERLAP-ORDERED DBILLIVER LIPID-MCCONNELLOTHER TESTS-JABOUR Performed By: #### L 500.4100, L501.5101, L100.0500, L500.4050, L501.9310, L501.4700, L501.9520 ####[facility] [address] [place], [place], [phone] CO2 [Moles/Vol] 23.0 mmol/L Normal 21.0-32.[address] [facility] Comment on above: Order Comment: LIVER CMP TESTS OVERLAP-ORDERED [facility] LIPID-MCCONNELLOTHER TESTS-JABOUR Performed By: #### L 500.4100, L501.5101, L100.0500, L500.4050, L501.9310, L501.4700, L501.9520 ####[facility] [address] [place], [address] Creatinine [Mass/Vol] 1.14 mg/dL Normal 0.70-1.20 [facility] Comment on above: Order Comment: LIVER CMP TESTS OVERLAP-ORDERED DBILLIVER LIPID-MCCONNELLOTHER TESTS-JABOUR Performed By: #### L 500.4100, L501.5101, L100.0500, L500.4050, L501.9310, L501.4700, L501.9520 ####[facility] [address] [place], [address] GAP 12 Normal 5-[address] [facility] Comment on above: Order Comment: LIVER CMP TESTS OVERLAP-ORDERED DBILLIVER LIPID-MCCONNELLOTHER TESTS-JABOUR Performed By: #### L 500.4100, L501.5101, L100.0500, L500.4050, L501.9310, L501.4700, L501.9520 ####[facility] [address] [place], [place], [phone] GFR/1.73 sq M.predicted among non-blacks MDRD (S/P/Bld) [Vol rate/Area] 76 mL/min/{1.73_m2} Normal >[address] [facility] Comment on above: Order Comment: LIVER CMP TESTS OVERLAP-ORDERED DBILLIVER LIPID-MCCONNELLOTHER TESTS-JABOUR Result Comment: mL/m in/1.73m2 CKD-EPI Creatinine Equation (2020) Performed By: #### L 500.4100, L501.5101, L100.0500, L500.4050, L501.9310, L501.4700, L501.9520 ####[facility] [address] [place], [place], [phone] Globulin (S) [Mass/Vol] 2.8 g/dL Normal 2.2-4.2 [facility] Comment on above: Order Comment: LIVER CMP TESTS OVERLAP-ORDERED DBILLIVER LIPID-MCCONNELLOTHER TESTS-JABOUR Performed By: #### L 500.4100, L501.5101, L100.0500, L500.4050, L501.9310, L501.4700, L501.9520 ####[facility] [address] [place], [address] Glucose [Mass/Vol] 101 mg/dL High 70-99 [facility] Comment on above: Order Comment: LIVER CMP TESTS OVERLAP-ORDERED DBILLIVER LIPID-MCCONNELLOTHER TESTS-JABOUR Performed By: #### L 500.4100, L501.5101, L100.0500, L500.4050, L501.9310, L501.4700, L501.9520 ####[facility] [address] [place], [address] Potassium [Moles/Vol] 4.5 mmol/L Normal 3.3-5.1 [facility] Comment on above: Order Comment: LIVER CMP TESTS OVERLAP-ORDERED DBILLIVER LIPID-MCCONNELLOTHER TESTS-JABOUR Performed By: #### L 500.4100, L501.5101, L100.0500, L500.4050, L501.9310, L501.4700, L501.9520 ####[facility] [address] [place], [address] Sodium [Moles/Vol] 138 mmol/L Normal 133-145 [facility] Comment on above: Order Comment: LIVER CMP TESTS OVERLAP-ORDERED [facility] LIPID-MCCONNELLOTHER TESTS-JABOUR Performed By: #### L 500.4100, L501.5101, L100.0500, L500.4050, L501.9310, L501.4700, L501.9520 ####[facility] [address] [place], [address] T PROT 6.7 g/dL Normal 5.9-8.[address] [facility] Comment on above: Order Comment: LIVER CMP TESTS OVERLAP-ORDERED [facility] LIPID-MCCONNELLOTHER TESTS-JABOUR Performed By: #### L 500.4100, L501.5101, L100.0500, L500.4050, L501.9310, L501.4700, L501.9520 ####[facility] [address] [place], [address] Urea nitrogen [Mass/Vol] 20 mg/dL High 4-[address] [facility] Comment on above: Order Comment: LIVER CMP TESTS OVERLAP-ORDERED DBILLIVER LIPID-MCCONNELLOTHER TESTS-JABOUR Performed By: #### L 500.4100, L501.5101, L100.0500, L500.4050, L501.9310, L501.4700, L501.9520 ####[facility] [address] [place], [address] Erythrocyte distribution wid th ratioOrdered By: Lyla Bernard on 07-14-2024 Erythrocyte distribution width (RBC) [Ratio] 13.1 % 11.6-14.[address] [facility] Erythrocyte distribution wid th standard deviationOrdered By: Lyla Bernard on 07-14-2024 Erythrocyte distribution width (RBC) [Ratio] 44.5 fl High 35.1-43.[address] [facility] Gamma glutamyl transferase ( GGT) measurementOrdered By: Lyla Bernard on 07-14-2024 Amylase [Catalytic activity/Vol] 27 U/L 0-[address] [facility] Comment on above: Performed at: [facility] [address] [place] [id number] Director: Ruben Madison PhD, Phone: [phone] Glomerular filtration rate ( GFR) estimation/1.73 sq m using serum, plasma, or whole bOrdered By: Lyla Bernard on 07-14-2024 GFR/1.73 sq M.predicted among non-blacks MDRD (S/P/Bld) [Vol rate/Area] 76 mL/min/{1.73_m2} >[address] [facility] Comment on above: mL/min/1.73m2 CKD-EP I Creatinine Equation (2020) Hematocrit Auto (Bld) [Volum e fraction]Ordered By: Lyla Bernard on 07-14-2024 Hematocrit (Bld) [Volume fraction] 40.8 % 40-[address] [facility] Hemoglobin measurementOrdere d By: Lyla Bernard on 07-14-2024 Hemoglobin (Bld) [Mass/Vol] 14.0 g/dL 13.0-16.[address] [facility] LDL calc ser/plasOrdered By: Lyla Bernard on 07-14-2024 Cholesterol in LDL [Mass/Vol] 88 mg/dL [facility] Comment on above: Seaipfhbkd=343-566 m g/dL & Higher Btxv=740 mg/dL or greater Laboratory - Chemistry and C hemistry - challengeOrdered By: Lyla Bernard on 07-14-2024 AST [Catalytic activity/Vol] 26 U/L <[address] [facility] Lipid Profileon 07-14-2024 CHOL:HDL 4.[address] [facility] Comment on above: Order Comment: LIVER CMP TESTS OVERLAP-ORDERED DBILLIVER LIPID-MCCONNELLOTHER TESTS-JABOUR Performed By: #### L 500.4100, L501.5101, L100.0500, L500.4050, L501.9310, L501.4700, L501.9520 ####[facility] [address] [place], [place], [phone] Cholesterol [Mass/Vol] 149 mg/dL Normal <=200 [facility] Comment on above: Order Comment: LIVER CMP TESTS OVERLAP-ORDERED [facility] LIPID-MCCONNELLOTHER TESTS-JABOUR Result Comment: Chol esterol level, Desirable <200 mg/dL Borderline high cholesterol 200-239 mg/dL High cholesterol >=240 mg/dL Recommendations of the NCEP Adult Treatment Panel for the following risk-cutoff thresholds for the [place] population. Performed By: #### L 500.4100, L501.5101, L100.0500, L500.4050, L501.9310, L501.4700, L501.9520 ####[facility] [address] [place], [address] Cholesterol in HDL [Mass/Vol] 30 mg/dL Low [facility] Comment on above: Order Comment: LIVER CMP TESTS OVERLAP-ORDERED [facility] LIPID-MCCONNELLOTHER TESTS-JABOUR Result Comment: Maira onal Cholesterol Education Program (NCEP) guidelines: <40 mg/dL: Low HDL-cholesterol (major risk factor for CHD) >= 60 mg/dL: High HDL-cholesterol (negative risk factor for CHD) HDL-cholesterol is affected by a number of factors, e.g. smoking, exercise, hormones, sex and age. Performed By: #### L 500.4100, L501.5101, L100.0500, L500.4050, L501.9310, L501.4700, L501.9520 ####[facility] [address] [place], [address] Cholesterol in LDL [Mass/Vol] 88 mg/dL Normal [facility] Comment on above: Order Comment: LIVER CMP TESTS OVERLAP-ORDERED DBILLIVER LIPID-MCCONNELLOTHER TESTS-JABOUR Result Comment: Bord iuntqa=474-370 mg/dL Higher Smar=693 mg/dL or greater Performed By: #### L 500.4100, L501.5101, L100.0500, L500.4050, L501.9310, L501.4700, L501.9520 ####[facility] [address] [place], [address] Cholesterol in VLDL [Mass/Vol] 31 mg/dL Normal 5-[address] [facility] Comment on above: Order Comment: LIVER CMP TESTS OVERLAP-ORDERED DBILLIVER LIPID-MCCONNELLOTHER TESTS-JABOUR Performed By: #### L 500.4100, L501.5101, L100.0500, L500.4050, L501.9310, L501.4700, L501.9520 ####[facility] [address] [place], [address] Triglyceride [Mass/Vol] 153 mg/dL Normal [facility] Comment on above: Order Comment: LIVER CMP TESTS OVERLAP-ORDERED DBILLIVER LIPID-MCCONNELLOTHER TESTS-JABOUR Result Comment: The drugs N-Acetylcysteine and Metamizole may falsely depress this assay. Normal range: <150 mg/dL Borderline High: 150-199 mg/dL High: 200-499 mg/dL Very High: >500 mg/dL Performed By: #### L 500.4100, L501.5101, L100.0500, L500.4050, L501.9310, L501.4700, L501.9520 ####[facility] [address] [place], [address] MCV (mean corpuscular volume ) determinationOrdered By: Lyla Bernard on 07-14-2024 MCV (RBC) [Entitic vol] 92.5 fL 80-94 [facility] Mean corpuscular hemoglobin (MCH) determinationOrdered By: Lyla Bernard on 07-14-2024 MCH (RBC) [Entitic mass] 31.7 pg 27.0-32.[address] [facility] Mean corpuscular hemoglobin concentration (MCHC) determinationOrdered By: Lyla Bernard on 07-14-2024 MCHC (RBC) [Mass/Vol] 34.3 g/dL 32-36 [facility] Mean platelet volume determi nationOrdered By: Lyla Bernard on 07-14-2024 Platelet mean volume (Bld) [Entitic vol] 10.8 fL 6.2-12.[address] [facility] Platelet countOrdered By: Genie Bernard on 07-14-2024 Platelets (Bld) [#/Vol] 268 10*3/uL 150-[address] [facility] Potassium measurement (mass/ volume)Ordered By: Lyla Bernard on 07-14-2024 Potassium (Unsp spec) [Mass/Vol] 4.5 mmol/L 3.3-5.[address] [facility] RBC Auto (Bld) [#/Vol]Ordere d By: Lyla Bernard on 07-14-2024 RBC (Bld) [#/Vol] 4.41 10*6/uL Low 4.6-6.2 [facility] Screening total cholesterol/ high density lipoprotein (HDL) cholesterol ratioOrdered By: Lyla Bernard on 07-14-2024 Cholesterol.total/Choles terol in HDL [Mass ratio] 4.92 {ratio} [facility] Serum creatinine measurement (mass/volume)Ordered By: Lyla Bernard on 07-14-2024 Creatinine [Mass/Vol] 1.14 mg/dL 0.70-1.20 [facility] Serum globulin measurementOr dered By: Lyla Bernard on 07-14-2024 Globulin (S) [Mass/Vol] 2.8 g/dL 2.2-4.2 [facility] Serum glucose measurement (m ass/volume)Ordered By: Lyla Bernard on 07-14-2024 Glucose [Mass/Vol] 101 mg/dL High 70-99 [facility] Serum or plasma alanine aguilera otransferase (ALT) measurementOrdered By: Lyla Bernard on 07-14-2024 ALT [Catalytic activity/Vol] 29 U/L <[address] [facility] Serum or plasma albumin danica urement (mass/volume)Ordered By: Lyla Bernard on 07-14-2024 Albumin [Mass/Vol] 3.9 g/dL 3.5-5.0 [facility] Serum or plasma albumin/glob ulin mass ratioOrdered By: Lyla Bernard on 07-14-2024 Albumin/Globulin [Mass ratio] 1.4 {ratio} 0.9-2.[address] [facility] Serum or plasma alkaline medina sphatase measurementOrdered By: Lyla Bernard on 07-14-2024 ALP [Catalytic activity/Vol] 102 U/L 40-[address] [facility] Serum or plasma calcium danica urement (mass/volume)Ordered By: Lyla Bernard on 07-14-2024 Calcium [Mass/Vol] 8.9 mg/dL 7.6-11.0 [facility] Serum or plasma cholesterol in HDL measurement (mass/volume)Ordered By: Lyla Bernard on 07-14-2024 Cholesterol in HDL [Mass/Vol] 30 mg/dL Low >[address] [facility] Comment on above: National Cholesterol Education Program (NCEP) guidelines:<40 mg/dL: Low HDL-cholesterol (major risk factor for CHD)>= 60 mg/dL: High HDL-cholesterol (negative risk factor for CHD)HDL-cholesterol is affected by a number of factors, e.g. smoking, exercise, hormones, sex and age. Serum or plasma cholesterol measurement (mass/volume)Ordered By: Lyla Bernard on 07-14-2024 Cholesterol [Mass/Vol] 149 mg/dL <201 [facility] Comment on above: Cholesterol level, D esirable <200 mg/dLBorderline high cholesterol 200-239 mg/dLHigh cholesterol >=240 mg/dLRecommendations of the NCEP Adult Treatment Panel for the following risk-cutoff thresholds for the [place] population. Serum or plasma urea nitroge n measurement (mass/volume)Ordered By: Lyla Bernard on 07-14-2024 Urea nitrogen [Mass/Vol] 20 mg/dL High 4-[address] [facility] Sodium levelOrdered By: Ishan Bernard on 07-14-2024 Sodium [Moles/Vol] 138 mmol/L 133-145 [facility] T4 Total, Thyroxinon T4 [Mass/Vol] 6.6 ug/dL Normal 4.5-12.[address] [facility] Comment on above: Order Comment: LIVER CMP TESTS OVERLAP-[facility] LIPID-MCCONNELLOTHER TESTS-BOUR Performed By: #### L 500.4100, L501.5101, L100.0500, L500.4050, L501.9310, L501.4700, L501.9520 ####[facility] [id number] [place], [place], [id number] TSH DL <= 0.005 mIU/L QnOrde red By: Lyla Bernard on 07-14-2024 TSH Qn 1.720 uIU/mL 0.300-4.[address] [facility] Thyroid Stim Hormone (TSH)on 07-14-2024 TSH 1.720 uIU/mL Normal 0.300-4.[address] [facility] Comment on above: Order Comment: LIVER CMP TESTS OVERLAP-[facility] LIPID-MCCONNELLOTHER TESTS-BOUR Performed By: #### L 500.4100, L501.5101, L100.0500, L500.4050, L501.9310, L501.4700, L501.9520 ####[facility] [id number] [place], [place], [id number] ThyroxineOrdered By: Bettie Bernard on 07-14-2024 T4 [Mass/Vol] 6.6 ug/dL 4.5-12.[address] [facility] Total proteinOrdered By: Christopher Bernard on 07-14-2024 Protein [Mass/Vol] 6.7 g/dL 5.9-8.4 [facility] Triglycerides measurementOrd ered By: Lyla Bernard on 07-14-2024 Triglyceride [Mass/Vol] 153 mg/dL <199 [facility] Comment on above: The drugs N-Acetylcy steine and Metamizole may falsely depress this assay. Normal range: <150 mg/dLBorderline High: 150-199 mg/dLHigh: 200-499 mg/dLVery High: >500 mg/dL White blood cell (WBC) count Ordered By: Lyla Bernard on 07-14-2024 WBC (Bld) [#/Vol] 10.2 10*3/uL 4.4-11.0 [facility] Basophil percentageOrdered B y: Jere Zhu on 06-23-2023 Basophil percentage 0 SEEN /hpf 0-5 [facility] Bilirubin Test strip Ql (U)O rdered By: Jere Zhu on 06-23-2023 Bilirubin Ql (U) Negative Negative [facility] Ketones Test strip Ql (U)Ord ered By: Jere Zhu on 06-23-2023 Ketones Ql (U) Negative Negative [facility] Mucus LM Ql (Urine sed)Order ed By: Jere Zhu on 06-23-2023 Mucus Ql (Urine sed) 0 SEEN /hpf [facility] Nitrite Test strip Ql (U)Ord ered By: Jere Zhu on 06-23-2023 Nitrite Ql (U) Negative Negative [facility] No Panel InformationOrdered By: Jere Zhu on 06-23-2023 Urine RBC 0 SEEN /hpf 0-[address] [facility] Protein Test strip Ql (U)Ord ered By: Jere Zhu on 06-23-2023 Protein Ql (U) Negative Negative [facility] Squamous epithelial cells de tection in urine sediment by light microscopyOrdered By: Jere Zuh on 06-23-2023 Epithelial cells.squamous LM Ql (Urine sed) 0 SEEN /hpf 0-[address] [facility] Urine blood detectionOrdered By: Jere Zhu on 06-23-2023 RBC Ql (U) Negative Negative [facility] Urine clarityOrdered By: Kashif Zhu on 06-23-2023 Clarity (U) Clear Clear [facility] Urine color determinationOrd ered By: Jere Zhu on 06-23-2023 Color (U) Yellow Yellow [facility] Urine glucose detectionOrder ed By: Jere Zhu on 06-23-2023 Glucose Ql (U) Normal mg/dl Normal [facility] Urine leukocyte esterase det ection by dipstickOrdered By: Jere Zhu on 06-23-2023 Leukocyte esterase Test strip Ql (U) Negative Negative [facility] Urine pHOrdered By: Jere fish on 06-23-2023 pH (U) 7.0 [pH] 5.0 - 8.[address] [facility] Urine sediment bacteria coun t by microscopy (number/high power field)Ordered By: Jere Zhu on 06-23-2023 Bacteria LM.HPF (Urine sed) [#/Area] 0 /[HPF] None Seen [facility] Urine specific gravity measu rementOrdered By: Jere Zhu on 06-23-2023 Specific gravity (U) [Rel density] 1.005 1.002-1.[address] [facility] Urine urobilinogen measureme ntOrdered By: Jree Zhu on 06-23-2023 Urobilinogen Ql (U) Normal mg/dl Normal [facility] Basophil percentageOrdered B y: Marilyn Gordon on 05-09-2023 Basophil percentage < 10.0 IU/mL <15 [facility] No Panel InformationOrdered By: Marilyn Gordon on 05-09-2023 Anti-Nuclear Antibody Screen Negative Negative [facility] Comment on above: Performed at: [place] [id number] Director: Ruben Madison PhD, Phone: [phone] Basophil percentageOrdered B y: [place] on 04-29-2023 Bilirubin [Mass/Vol] 0.50 mg/dL 0.20-1.00 [facility] Comment on above: For patients on eltr ombopag therapy, use of Dimension [place] TBIL is not recommended. Chloride [Moles/Vol] 108 mmol/L 98-107 [facility] Cholesterol [Mass/Vol] 134 mg/dL <200 [facility] Comment on above: <200 mg/dL Desirable 200-240 mg/dL Borderline >240 mg/dL High Risk Glucose [Mass/Vol] 107 mg/dL 74-106 [facility] Comment on above: Fasting Glucose resu lt from 100 to 125 mg/dL suggests IMPAIRED HOMEOSTASIS per A.D.A. criteria. Potassium [Moles/Vol] 3.9 mmol/L 3.5-5.1 [facility] Protein [Mass/Vol] 6.9 g/dL 6.4-8.2 [facility] Sodium [Moles/Vol] 138 mmol/L 136-145 [facility] Triglyceride [Mass/Vol] 115 mg/dL <199 [facility] Comment on above: The drugs N-Acetylcy steine and Metamizole may falsely depress this assay.Serum Triglycerides Reference Interval Normal <150 mg/dL Borderline high 150 - 199 mg/dL High 200 - 499 mg/dL Very High > or = 500 mg/dL Laboratory - Chemistry and C hemistry - challengeOrdered By: [place] on 04-29-2023 Albumin/Globulin [Mass ratio] 1.0 {ratio} 0.9-2.[address] [facility] ALP [Catalytic activity/Vol] 108 U/L 45-[address] [facility] ALT [Catalytic activity/Vol] 36 U/L 16-[address] [facility] Cholesterol in HDL [Mass/Vol] 39 mg/dL >[address] [facility] Comment on above: The drugs N-Acetylcy steine and Metamizole may falsely depress this assay. Reference Range HDL <40 mg/dL Low HDL Cholesterol HDL >or= 60 mg/dL High HDL Cholesterol Cholesterol in LDL [Mass/Vol] 72 mg/dL 0-[address] [facility] CO2 [Moles/Vol] 25.0 mmol/L 21.0-32.[address] [facility] Globulin (S) [Mass/Vol] 3.5 g/dL 2.2-4.2 [facility] Urea nitrogen/Creatinine [Mass ratio] 15.5 mg/mg 10-[address] [facility] No Panel InformationOrdered By: [place] on 04-29-2023 Urine Microalbumin/Creatinine Ratio 6.4 mg/g CRE <[address] [facility] Estimated GFR (MDRD) Amer 90 mL/min >[address] [facility] Comment on above: GFR Calc Estimated GFR (MDRD) Non-Af Amer 74 mL/min >[address] [facility] Comment on above: Non- GFR Calc Prostate Specific Antigen Screen 0.77 ng/mL 0.00-4.[address] [facility] Comment on above: This test was perfor med using the TPSA assay method for [employer] system. Values obtained with differentassay methods cannot be used interchangably.When changing PSA assays in the course of monitoring apatient, additional sequential testing should be carriedout to confirm baseline values. VLDL Cholesterol 23 mg/dL 5-[address] [facility] Serum or plasma calcium danica urement (mass/volume)Ordered By: [place] on 04-29-2023 Calcium [Mass/Vol] 8.6 mg/dL 8.5-10.1 [facility] Serum or plasma creatinine m easurement (mass/volume)Ordered By: [place] on 04-29-2023 Creatinine [Mass/Vol] 1.10 mg/dL 0.70-1.30 [facility] Comment on above: The validity of the calculated GFR & GFRAA in patients over 70 years has not been determined. Clinical correlation is essential. Serum or plasma urea nitroge n measurement (mass/volume)Ordered By: [place] on 04-29-2023 Urea nitrogen [Mass/Vol] 17 mg/dL 7-[address] [facility] Thin prep Papanicolaou smear with manual screeningOrdered By: [place] on 04-29-2023 Thin prep Papanicolaou smear with manual screening 5.3 mg/L NO RANGE EST. [facility] Thin prep Papanicolaou smear with manual screening 3.4 g/dL 3.2-5.[address] [facility] Thin prep Papanicolaou smear with manual screening 20 U/L 15-[address] [facility] Thin prep Papanicolaou smear with manual screening 5 5-[address] [facility] Urine creatinine measurement (mass/volume)Ordered By: [place] on 04-29-2023 Creatinine (U) [Mass/Vol] 82.00 mg/dL NO RANGE EST. [facility] Whole blood hemoglobin A1c/t otal hemoglobin ratio (mass fraction)Ordered By: [place] on 04-29-2023 HbA1c (Bld) [Mass fraction] 5.9 % 3.8-5.[address] [facility] Comment on above: Normal < 5.7 % Predi abetic 5.7 - 6.4 % Diabetic >or= 6.5 % Please note range changes. Basophil percentageOrdered B y: Marilyn Gordon on 09-17-2022 Bilirubin [Mass/Vol] 0.60 mg/dL 0.20-1.00 [facility] Comment on above: For patients on eltr ombopag therapy, use of Dimension [place] TBIL is not recommended. Chloride [Moles/Vol] 104 mmol/L 98-107 [facility] Cholesterol [Mass/Vol] 138 mg/dL <200 [facility] Comment on above: <200 mg/dL Desirable 200-240 mg/dL Borderline >240 mg/dL High Risk Glucose [Mass/Vol] 104 mg/dL 74-106 [facility] Comment on above: Fasting Glucose resu lt from 100 to 125 mg/dL suggests IMPAIRED HOMEOSTASIS per A.D.A. criteria. Potassium [Moles/Vol] 4.5 mmol/L 3.5-5.1 [facility] Comment on above: Moderate Hemolysis, Result may be falsely increased. Protein [Mass/Vol] 7.2 g/dL 6.4-8.2 [facility] Sodium [Moles/Vol] 136 mmol/L 136-145 [facility] Triglyceride [Mass/Vol] 221 mg/dL <199 [facility] Comment on above: The drugs N-Acetylcy steine and Metamizole may falsely depress this assay.Serum Triglycerides Reference Interval Normal <150 mg/dL Borderline high 150 - 199 mg/dL High 200 - 499 mg/dL Very High > or = 500 mg/dL Laboratory - Chemistry and C hemistry - challengeOrdered By: Marilyn Gordon on 09-17-2022 ALP [Catalytic activity/Vol] 105 U/L 45-[address] [facility] ALT [Catalytic activity/Vol] 40 U/L 16-[address] [facility] CO2 [Moles/Vol] 29.0 mmol/L 21.0-32.[address] [facility] Globulin (S) [Mass/Vol] 4.0 g/dL 2.2-4.2 [facility] Urea nitrogen/Creatinine [Mass ratio] 12.3 mg/mg 10-[address] [facility] No Panel InformationOrdered By: Marilyn Gordon on 09-17-2022 Estimated GFR (MDRD) Amer 86 mL/min >[address] [facility] Comment on above: GFR Calc Estimated GFR (MDRD) Non-Af Amer 71 mL/min >[address] [facility] Comment on above: Non- GFR Calc Serum or plasma albumin danica urement (mass/volume)Ordered By: Marilyn Gordon on 09-17-2022 Albumin [Mass/Vol] 3.2 g/dL 3.2-5.0 [facility] Serum or plasma albumin/glob ulin mass ratioOrdered By: Marilyn Gordon on 09-17-2022 Albumin/Globulin [Mass ratio] 0.8 {ratio} 0.9-2.[address] [facility] Serum or plasma calcium danica urement (mass/volume)Ordered By: Marilyn Gordon on 09-17-2022 Calcium [Mass/Vol] 8.5 mg/dL 8.5-10.1 [facility] Serum or plasma cholesterol in HDL measurement (mass/volume)Ordered By: Marilyn Gordon on 09-17-2022 Cholesterol in HDL [Mass/Vol] 37 mg/dL >[address] [facility] Comment on above: The drugs N-Acetylcy steine and Metamizole may falsely depress this assay. Reference Range HDL <40 mg/dL Low HDL Cholesterol HDL >or= 60 mg/dL High HDL Cholesterol Serum or plasma cholesterol in VLDL measurement (mass/volume)Ordered By: Marilyn Gordon on 09-17-2022 Cholesterol in VLDL [Mass/Vol] 44 mg/dL 5-[address] [facility] Serum or plasma creatinine m easurement (mass/volume)Ordered By: Marilyn Gordon on 09-17-2022 Creatinine [Mass/Vol] 1.14 mg/dL 0.70-1.30 [facility] Comment on above: The validity of the calculated GFR & GFRAA in patients over 70 years has not been determined. Clinical correlation is essential. Serum or plasma low density lipoprotein (LDL) cholesterol measurement (mass/volume)Ordered By: Marilyn Gordon on 09-17-2022 Cholesterol in LDL [Mass/Vol] 57 mg/dL 0-[address] [facility] Serum or plasma urea nitroge n measurement (mass/volume)Ordered By: Marilyn Gordon on 09-17-2022 Urea nitrogen [Mass/Vol] 14 mg/dL 7-[address] [facility] Thin prep Papanicolaou smear with manual screeningOrdered By: Marilyn Gordon on 09-17-2022 Thin prep Papanicolaou smear with manual screening 49 U/L 15-[address] [facility] Comment on above: Moderate Hemolysis, Result may be falsely increased. Thin prep Papanicolaou smear with manual screening 3 5-[address] [facility] Thin prep Papanicolaou smear with manual screening < 5.0 mg/L NO RANGE EST. [facility] Whole blood hemoglobin A1c/t otal hemoglobin ratio (mass fraction)Ordered By: Marilyn Gordon on 09-17-2022 HbA1c (Bld) [Mass fraction] 5.7 % 3.8-5.[address] [facility] Comment on above: Normal < 5.7 % Predi abetic 5.7 - 6.4 % Diabetic >or= 6.5 % Please note range changes. Basophil percentageOrdered B y: Marilyn Gordon on 05-08-2022 Bilirubin [Mass/Vol] 0.50 mg/dL 0.20-1.00 [facility] Comment on above: For patients on eltr ombopag therapy, use of Dimension [place] TBIL is not recommended. Chloride [Moles/Vol] 104 mmol/L 98-107 [facility] Cholesterol [Mass/Vol] 180 mg/dL <200 [facility] Comment on above: <200 mg/dL Desirable 200-240 mg/dL Borderline >240 mg/dL High Risk Glucose [Mass/Vol] 112 mg/dL 74-106 [facility] Comment on above: Fasting Glucose resu lt from 100 to 125 mg/dL suggests IMPAIRED HOMEOSTASIS per A.D.A. criteria. Potassium [Moles/Vol] 4.2 mmol/L 3.5-5.1 [facility] Comment on above: Moderate Hemolysis, Result may be falsely increased. Protein [Mass/Vol] 7.5 g/dL 6.4-8.2 [facility] Sodium [Moles/Vol] 139 mmol/L 136-145 [facility] Triglyceride [Mass/Vol] 244 mg/dL <199 [facility] Comment on above: The drugs N-Acetylcy steine and Metamizole may falsely depress this assay.Serum Triglycerides Reference Interval Normal <150 mg/dL Borderline high 150 - 199 mg/dL High 200 - 499 mg/dL Very High > or = 500 mg/dL Laboratory - Chemistry and C hemistry - challengeOrdered By: Marilyn Gordon on 05-08-2022 ALP [Catalytic activity/Vol] 83 U/L 45-[address] [facility] ALT [Catalytic activity/Vol] 50 U/L 16-[address] [facility] CO2 [Moles/Vol] 28.0 mmol/L 21.0-32.[address] [facility] Globulin (S) [Mass/Vol] 3.8 g/dL 2.2-4.2 [facility] Urea nitrogen/Creatinine [Mass ratio] 17.7 mg/mg 10-[address] [facility] No Panel InformationOrdered By: Marilyn Gordon on 05-08-2022 Estimated GFR (MDRD) Amer 87 mL/min >[address] [facility] Comment on above: GFR Calc Estimated GFR (MDRD) Non-Af Amer 72 mL/min >[address] [facility] Comment on above: Non- GFR Calc Serum or plasma albumin danica urement (mass/volume)Ordered By: Marilyn Gordon on 05-08-2022 Albumin [Mass/Vol] 3.7 g/dL 3.2-5.0 [facility] Serum or plasma albumin/glob ulin mass ratioOrdered By: Marilyn Gordon on 05-08-2022 Albumin/Globulin [Mass ratio] 1.0 {ratio} 0.9-2.[address] [facility] Serum or plasma calcium danica urement (mass/volume)Ordered By: Marilyn Gordon on 05-08-2022 Calcium [Mass/Vol] 9.1 mg/dL 8.5-10.1 [facility] Serum or plasma cholesterol in HDL measurement (mass/volume)Ordered By: Marilyn Gordon on 05-08-2022 Cholesterol in HDL [Mass/Vol] 38 mg/dL >[address] [facility] Comment on above: The drugs N-Acetylcy steine and Metamizole may falsely depress this assay. Reference Range HDL <40 mg/dL Low HDL Cholesterol HDL >or= 60 mg/dL High HDL Cholesterol Serum or plasma cholesterol in VLDL measurement (mass/volume)Ordered By: Marilyn Gordon on 05-08-2022 Cholesterol in VLDL [Mass/Vol] 49 mg/dL 5-[address] [facility] Serum or plasma creatinine m easurement (mass/volume)Ordered By: Marilyn Gordon on 05-08-2022 Creatinine [Mass/Vol] 1.13 mg/dL 0.70-1.30 [facility] Comment on above: The validity of the calculated GFR & GFRAA in patients over 70 years has not been determined. Clinical correlation is essential. Serum or plasma low density lipoprotein (LDL) cholesterol measurement (mass/volume)Ordered By: Marilyn Gordon on 05-08-2022 Cholesterol in LDL [Mass/Vol] 93 mg/dL 0-[address] [facility] Serum or plasma urea nitroge n measurement (mass/volume)Ordered By: Marilyn Gordon on 05-08-2022 Urea nitrogen [Mass/Vol] 20 mg/dL 7-[address] [facility] Thin prep Papanicolaou smear with manual screeningOrdered By: Marilyn Gordon on 05-08-2022 Thin prep Papanicolaou smear with manual screening 40 U/L 15-[address] [facility] Comment on above: Moderate Hemolysis, Result may be falsely increased. Thin prep Papanicolaou smear with manual screening 7 5-[address] [facility] Whole blood hemoglobin A1c/t otal hemoglobin ratio (mass fraction)Ordered By: Marilyn Gordon on 05-08-2022 HbA1c (Bld) [Mass fraction] 5.3 % 3.8-5.[address] [facility] Comment on above: Normal < 5.7 % Predi abetic 5.7 - 6.4 % Diabetic >or= 6.5 % Please note range changes. Absolute lymphocyte countOrd ered By: Evelio Foss on 02-15-2022 Lymphocytes Auto (Unsp spec) [#/Vol] 2.02 10*3/uL 0.83-4.[address] [facility] Basophil percentageOrdered B y: Evelio Foss on 02-15-2022 Basophils/100 WBC (Bld) 0.3 % 0-1 [facility] Chloride [Moles/Vol] 107 mmol/L 98-107 [facility] Eosinophils/100 WBC (Bld) 1.4 % 0-[address] [facility] Glucose [Mass/Vol] 103 mg/dL 74-106 [facility] Comment on above: Fasting Glucose resu lt from 100 to 125 mg/dL suggests IMPAIRED HOMEOSTASIS per A.D.A. criteria. Neutrophils (Bld) [#/Vol] 6.2 10*3/uL 2.0-7.[address] [facility] Neutrophils/100 WBC (Bld) 67.2 % 47-[address] [facility] Potassium [Moles/Vol] 3.9 mmol/L 3.5-5.1 [facility] Sodium [Moles/Vol] 139 mmol/L 136-145 [facility] WBC (Bld) [#/Vol] 9.3 10*3/uL 4.4-11.0 [facility] Blood erythrocytes count (nu mber/volume)Ordered By: Evelio Foss on 02-15-2022 RBC (Bld) [#/Vol] 4.51 10*6/uL 4.6-6.2 [facility] Blood hemoglobin measurement (mass/volume)Ordered By: Evelio Foss on 02-15-2022 Hemoglobin (Bld) [Mass/Vol] 14.4 g/dL 13.0-16.[address] [facility] Blood lymphocytes/100 leukoc ytesOrdered By: Evelio Foss on 02-15-2022 Lymphocytes/100 WBC (Bld) 21.8 % 19-[address] [facility] Blood monocytes/100 leukocyt esOrdered By: Evelio Foss on 02-15-2022 Monocytes/100 WBC (Bld) 8.5 % 0-10 [facility] Blood platelet mean volumeOr dered By: Evelio Foss on 02-15-2022 Platelet mean volume (Bld) [Entitic vol] 11.2 fL 6.2-12.[address] [facility] Determination of erythrocyte mean corpuscular volume (MCV)Ordered By: Evelio Foss on 02-15-2022 MCV (RBC) [Entitic vol] 95.1 fL 80-94 [facility] Hematocrit Auto (Bld) [Volum e fraction]Ordered By: Evelio Foss on 02-15-2022 Hematocrit (Bld) [Volume fraction] 42.9 % 40-[address] [facility] Laboratory - Chemistry and C hemistry - challengeOrdered By: Evelio Foss on 02-15-2022 CO2 [Moles/Vol] 28.0 mmol/L 21.0-32.[address] [facility] Urea nitrogen/Creatinine [Mass ratio] 12.4 mg/mg 10-[address] [facility] Laboratory - Hematology and Cell countsOrdered By: Evelio Foss on 02-15-2022 Erythrocyte distribution width (RBC) [Entitic vol] 46.5 fL 35.1-43.[address] [facility] Erythrocyte distribution width (RBC) [Ratio] 13.4 % 11.6-14.[address] [facility] Immature granulocytes/100 WBC (Bld) 0.800 % 0.0-0.[address] [facility] Comment on above: IG% - Immature Granu locytes (promyelocytes, myelocytes and metamyelocytes) > 1% indicates that a LEFT SHIFT is Present. MCH (RBC) [Entitic mass] 31.9 pg 27.0-32.[address] [facility] Nucleated RBC/100 WBC (Bld) [Ratio] 0 % 0-[address] [facility] MCHC Auto (RBC) [Mass/Vol]Or dered By: Evelio Foss on 02-15-2022 MCHC (RBC) [Mass/Vol] 33.6 g/dL 32-36 [facility] No Panel InformationOrdered By: Evelio Foss on 02-15-2022 Estimated GFR (MDRD) Amer 88 mL/min >[address] [facility] Comment on above: GFR Calc Estimated GFR (MDRD) Non-Af Amer 72 mL/min >[address] [facility] Comment on above: Non- GFR Calc Platelets bldOrdered By: Feliz Foss on 02-15-2022 Platelets (Bld) [#/Vol] 238 10*3/uL 150-[address] [facility] Serum or plasma calcium danica urement (mass/volume)Ordered By: Evelio Foss on 02-15-2022 Calcium [Mass/Vol] 9.2 mg/dL 8.5-10.1 [facility] Serum or plasma creatinine m easurement (mass/volume)Ordered By: Evelio Foss on 02-15-2022 Creatinine [Mass/Vol] 1.13 mg/dL 0.70-1.30 [facility] Comment on above: The validity of the calculated GFR & GFRAA in patients over 70 years has not been determined. Clinical correlation is essential. Serum or plasma urea nitroge n measurement (mass/volume)Ordered By: Evelio Foss on 02-15-2022 Urea nitrogen [Mass/Vol] 14 mg/dL 7-[address] [facility] Thin prep Papanicolaou smear with manual screeningOrdered By: Evelio Foss on 02-15-2022 Thin prep Papanicolaou smear with manual screening 4 5-[address] [facility] Laboratory - Microbiology an d Antimicrobial susceptibilityon 11-08-2021 SARS-CoV-2 (COVID-19) RNA RANDALL+probe Ql (Unsp spec) Not detected [facility] Work Phone: Basophil percentageon 2021 Bilirubin [Mass/Vol] 0.40 mg/dL 0.20-1.00 [facility] Work Phone: Comment on above: For patients on eltr ombopag therapy, use of Dimension [place] TBIL is not recommended. Chloride [Moles/Vol] 106 mmol/L 98-107 [facility] Work Phone: Cholesterol [Mass/Vol] 212 mg/dL <200 [facility] Work Phone: Comment on above: <200 mg/dL Desirable 200-240 mg/dL Borderline >240 mg/dL High Risk Glucose [Mass/Vol] 98 mg/dL 74-106 [facility] Work Phone: Potassium [Moles/Vol] 4.2 mmol/L 3.5-5.1 [facility] Work Phone: Protein [Mass/Vol] 7.6 g/dL 6.4-8.2 [facility] Work Phone: Sodium [Moles/Vol] 139 mmol/L 136-145 [facility] Work Phone: Triglyceride [Mass/Vol] 150 mg/dL <199 [facility] Work Phone: Comment on above: The drugs N-Acetylcy steine and Metamizole may falsely depress this assay.Serum Triglycerides Reference Interval Normal <150 mg/dL Borderline high 150 - 199 mg/dL High 200 - 499 mg/dL Very High > or = 500 mg/dL Laboratory - Chemistry and C hemistry - challengeon 10-22-2021 ALP [Catalytic activity/Vol] 77 U/L 45-[address] [facility] Work Phone: ALT [Catalytic activity/Vol] 40 U/L 16-[address] [facility] Work Phone: CO2 [Moles/Vol] 28.0 mmol/L 21.0-32.[address] [facility] Work Phone: Globulin (S) [Mass/Vol] 4.1 g/dL 2.2-4.2 [facility] Work Phone: Urea nitrogen/Creatinine [Mass ratio] 13.7 mg/mg 10-[address] [facility] Work Phone: No Panel Informationon 10-22 Estimated GFR (MDRD) Amer 79 mL/min >[address] [facility] Work Phone: Comment on above: GFR Calc Estimated GFR (MDRD) Non-Af Amer 65 mL/min >[address] [facility] Work Phone: Comment on above: Non- GFR Calc Prostate Specific Antigen Screen 0.79 ng/mL 0.00-4.[address] [facility] Work Phone: Comment on above: This test was perfor med using the TPSA assay method for the[employer] chemistry system. Values obtained with differentassay methods cannot be used interchangably.When changing PSA assays in the course of monitoring apatient, additional sequential testing should be carriedout to confirm baseline values. Serum or plasma albumin danica urement (mass/volume)on 10-22-2021 Albumin [Mass/Vol] 3.5 g/dL 3.2-5.0 [facility] Work Phone: Serum or plasma albumin/glob ulin mass ratioon 10-22-2021 Albumin/Globulin [Mass ratio] 0.9 {ratio} 0.9-2.[address] [facility] Work Phone: Serum or plasma calcium danica urement (mass/volume)on 10-22-2021 Calcium [Mass/Vol] 9.1 mg/dL 8.5-10.1 [facility] Work Phone: Serum or plasma cholesterol in HDL measurement (mass/volume)on 10-22-2021 Cholesterol in HDL [Mass/Vol] 38 mg/dL >[address] [facility] [facility] Work Phone: Comment on above: The drugs N-Acetylcy steine and Metamizole may falsely depress this assay. Reference Range HDL <40 mg/dL Low HDL Cholesterol HDL >or= 60 mg/dL High HDL Cholesterol Serum or plasma cholesterol in VLDL measurement (mass/volume)on 10-22-2021 Cholesterol in VLDL [Mass/Vol] 30 mg/dL 5-[address] [facility] Work Phone: Serum or plasma creatinine m easurement (mass/volume)on 10-22-2021 Creatinine [Mass/Vol] 1.24 mg/dL 0.70-1.30 [facility] Work Phone: Comment on above: The validity of the calculated GFR & GFRAA in patients over 70 years has not been determined. Clinical correlation is essential. Serum or plasma low density lipoprotein (LDL) cholesterol measurement (mass/volume)on 10-22-2021 Cholesterol in LDL [Mass/Vol] 144 mg/dL 0-[address] [facility] Work Phone: Serum or plasma urea nitroge n measurement (mass/volume)on 10-22-2021 Urea nitrogen [Mass/Vol] 17 mg/dL 7-[address] [facility] Work Phone: Thin prep Papanicolaou smear with manual screeningon 10-22-2021 Thin prep Papanicolaou smear with manual screening 27 U/L 15-[address] [facility] Work Phone: Thin prep Papanicolaou smear with manual screening 5 5-[address] [facility] Work Phone: Whole blood hemoglobin A1c/t otal hemoglobin ratio (mass fraction)on 08-06-2021 HbA1c (Bld) [Mass fraction] 5.4 % 3.8-5.[address] [facility] Work Phone: Comment on above: Normal < 5.7 % Predi abetic 5.7 - 6.4 % Diabetic >or= 6.5 % Please note range changes. No Panel Informationon 04-22 SARS-CoV-2 Antigen (Rapid) [facility] Work Phone: Basophil percentageon 2021 Bilirubin [Mass/Vol] 0.30 mg/dL 0.20-1.00 [facility] Work Phone: Comment on above: For patients on eltr ombopag therapy, use of Dimension [place] TBIL is not recommended. Chloride [Moles/Vol] 105 mmol/L 98-107 [facility] Work Phone: Cholesterol [Mass/Vol] 228 mg/dL <200 [facility] Work Phone: Comment on above: <200 mg/dL Desirable 200-240 mg/dL Borderline >240 mg/dL High Risk Glucose [Mass/Vol] 93 mg/dL 74-106 [facility] Work Phone: Comment on above: Please note revised GLUCOSE reference range effective 2017. Potassium [Moles/Vol] 4.1 mmol/L 3.5-5.1 [facility] Work Phone: Protein [Mass/Vol] 7.7 g/dL 6.4-8.2 [facility] Work Phone: Sodium [Moles/Vol] 140 mmol/L 136-145 [facility] Work Phone: Triglyceride [Mass/Vol] 136 mg/dL [facility] Work Phone: Comment on above: The drugs N-Acetylcy steine and Metamizole may falsely depress this assay.Serum Triglycerides Reference Interval Normal <150 mg/dL Borderline high 150 - 199 mg/dL High 200 - 499 mg/dL Very High > or = 500 mg/dL Laboratory - Chemistry and C hemistry - challengeon 03-18-2021 ALP [Catalytic activity/Vol] 79 U/L 45-[address] [facility] Work Phone: ALT [Catalytic activity/Vol] 38 U/L 16-[address] [facility] Work Phone: CO2 [Moles/Vol] 27.0 mmol/L 21.0-32.[address] [facility] Work Phone: Globulin (S) [Mass/Vol] 4.2 g/dL 2.2-4.2 W [facility] Work Phone: Urea nitrogen/Creatinine [Mass ratio] 13.0 mg/mg 10-[address] [facility] Work Phone: No Panel Informationon 03-18 Estimated GFR (MDRD) Amer 93 mL/min >[address] [facility] Work Phone: Comment on above: GFR Calc Estimated GFR (MDRD) Non-Af Amer 77 mL/min >[address] [facility] Work Phone: Comment on above: Non- GFR Calc Serum or plasma albumin danica urement (mass/volume)on 03-18-2021 Albumin [Mass/Vol] 3.5 g/dL 3.2-5.0 [facility] Work Phone: Serum or plasma albumin/glob ulin mass ratioon 03-18-2021 Albumin/Globulin [Mass ratio] 0.8 {ratio} 0.9-2.[address] [facility] Work Phone: Serum or plasma calcium danica urement (mass/volume)on 03-18-2021 Calcium [Mass/Vol] 8.7 mg/dL 8.5-10.1 [facility] Work Phone: Serum or plasma cholesterol in HDL measurement (mass/volume)on 03-18-2021 Cholesterol in HDL [Mass/Vol] 39 mg/dL [facility] Work Phone: Comment on above: The drugs N-Acetylcy steine and Metamizole may falsely depress this assay. Reference Range HDL <40 mg/dL Low HDL Cholesterol HDL >or= 60 mg/dL High HDL Cholesterol Serum or plasma cholesterol in VLDL measurement (mass/volume)on 03-18-2021 Cholesterol in VLDL [Mass/Vol] 27 mg/dL 5-[address] [facility] Work Phone: Serum or plasma creatinine m easurement (mass/volume)on 03-18-2021 Creatinine [Mass/Vol] 1.08 mg/dL 0.70-1.30 [facility] Work Phone: Comment on above: The validity of the calculated GFR & GFRAA in patients over 70 years has not been determined. Clinical correlation is essential. Serum or plasma low density lipoprotein (LDL) cholesterol measurement (mass/volume)on 03-18-2021 Cholesterol in LDL [Mass/Vol] 162 mg/dL 0-[address] [facility] Work Phone: Serum or plasma urea nitroge n measurement (mass/volume)on 03-18-2021 Urea nitrogen [Mass/Vol] 14 mg/dL 7-[address] [facility] Work Phone: Thin prep Papanicolaou smear with manual screeningon 03-18-2021 Thin prep Papanicolaou smear with manual screening 26 U/L 15-[address] [facility] Work Phone: Thin prep Papanicolaou smear with manual screening 8 5-[address] [facility] Work Phone: Whole blood hemoglobin A1c/t otal hemoglobin ratio (mass fraction)on 03-18-2021 HbA1c (Bld) [Mass fraction] 5.3 % 3.8-5.[address] [facility] Work Phone: Comment on above: Normal < 5.7 % Predi abetic 5.7 - 6.4 % Diabetic >or= 6.5 % Please note range changes. .GFRon 01-15-2017 eGFR (non-black) mL/min/{1.73_m2} Normal [facility] ([place]) Comment on above: Result Comment: GFR Population [...] L IPID, CMP, GFR, TSH ####[address] [place], [place] [address] eGFR (non-black) 105 ml/min/1.73sqm Normal [facility] ([place]) Comment on above: Result Comment: GFR Population [...] L IPID, CMP, GFR, TSH ####[address] [place], [place] [address] CMPon 01-15-2017 Alanine aminotransferase (ALT) 41 U/L High 10-35 [facility] ([place]) Comment on above: Performed By: #### L IPID, CMP, GFR, TSH ####[address] [place], [place] [address] Albumin 4.1 G/dL Normal 3.5-5.0 [facility] ([place]) Comment on above: Performed By: #### L IPID, CMP, GFR, TSH ####[address] [place], [place] [address] Albumin/Globulin Ratio 1.5 {ratio} Normal 1.1-2.5 A [facility] ([place]) Comment on above: Performed By: #### L IPID, CMP, GFR, TSH ####[address] [place], [place] [address] Alk Phos 76 IU/L Normal 40-135 [facility] ([place]) Comment on above: Performed By: #### L IPID, CMP, GFR, TSH ####[address] [place], [place] [address] Aspartate aminotransferase (AST) 27 U/L Normal 10-40 [facility] ([place]) Comment on above: Performed By: #### L IPID, CMP, GFR, TSH ####[address] [place], [place] [address] Bili Total 0.4 mg/dL Normal 0.2-1.0 [facility] ([place]) Comment on above: Performed By: #### L IPID, CMP, GFR, TSH ####[address] [place], [place] [address] BUN/Creatinine Ratio 14 ratio Normal 7-27 [facility] ([place] Comment on above: Performed By: #### L IPID, CMP, GFR, TSH ####[address] [place], [place] [address] Calcium 9.2 mg/dL Normal 8.4-10.2 [facility] ([place]) Comment on above: Performed By: #### L IPID, CMP, GFR, TSH ####[address] [place], [place] [address] Chloride 102 mmol/L Normal 98-107 [facility] ([place]) Comment on above: Performed By: #### L IPID, CMP, GFR, TSH ####[id number] [place], [place] [address] CO2 27 mmol/L Normal 22-29 [facility] ([place]) Comment on above: Performed By: #### L IPID, CMP, GFR, TSH ####[id number] [place], [place] [address] Creatinine 0.9 mg/dL Normal 0.6-1.2 [facility] ([place]) Comment on above: Performed By: #### L IPID, CMP, GFR, TSH ####[address] [place], [place] [address] Electrolyte Balance 9.0 mEq/L Normal [facility] ([place]) Comment on above: Performed By: #### L IPID, CMP, GFR, TSH ####[address] [place], [place] [address] Globulin 2.8 G/dL Normal [facility] ([place]) Comment on above: Performed By: #### L IPID, CMP, GFR, TSH ####[address] [place], [place] [address] Glucose mass conc 103 mg/dL Normal 70-105 [facility] ([place]) Comment on above: Performed By: #### L IPID, CMP, GFR, TSH ####[address] [place], [place] [address] Potassium molar conc 4.5 mmol/L Normal 3.5-5.1 [facility] ([place]) Comment on above: Performed By: #### L IPID, CMP, GFR, TSH ####[address] [place], [place] [address] Protein 6.9 G/dL Normal 6.0-8.3 [facility] ([place]) Comment on above: Performed By: #### L IPID, CMP, GFR, TSH ####[address] [place], [place] [address] Sodium 138 mmol/L Normal 136-146 [facility] ([place]) Comment on above: Performed By: #### L IPID, CMP, GFR, TSH ####[address] [place], [place] [address] Urea nitrogen 13.0 mg/dL Normal 7.0-18.0 [facility] ([place]) Comment on above: Performed By: #### L IPID, CMP, GFR, TSH ####[address] [place], [place] [address] LIPIDon 01-15-2017 Cholesterol 227 mg/dL High 131-200 [facility] ([place]) Comment on above: Result Comment: Chol esterol Reference Interval:Less than 200 [id number] Borderline high [id number] and above High risk Performed By: #### L IPID, CMP, GFR, TSH ####[id number] [place], [place] [address] HDL Cholesterol 40 mg/dL Normal 35-90 [facility] ([place]) Comment on above: Result Comment: HDL Reference Interval:Less than 40 Low - high risk60 or above Optimal/lowers risk Performed By: #### L IPID, CMP, GFR, TSH ####[id number] [place], [place] [address] LDL Cholesterol 150 mg/dL High 0-130 [facility] ([place]) Comment on above: Result Comment: LDL is a calculated result and requires a 12-hr fast.LDL Reference Interval:Less than 100 [id number] Near or above [id number] Borderline high [id number] High [id number] and above Very high risk Performed By: #### L IPID, CMP, GFR, TSH ####[address] [place], [place] [address] Triglyceride 184 mg/dL High 40-150 [facility] ([place]) Comment on above: Result Comment: Trig lyceride Reference Interval:Less than 150 [id number] Borderline high [id number] High [id number] or higher Very high risk Performed By: #### L IPID, CMP, GFR, TSH ####[address] [place], [place] [address] TSHon 01-15-2017 Thyroid stimulating hormone (TSH) 1.34 mcIU/mL Normal 0.27-4.20 [facility] ([place]) Comment on above: Performed By: #### L IPID, CMP, GFR, TSH ####[id number] [place], [place] [address] Vital Signs Date Time Vital Sign Value Performing Clinician Ronit [email or web address] 10-19-2024 07:09-0400 Body height 175.26 cm Marilyn SINGH Work Phone: [facility] 10-19-2024 07:09-0400 Body mass index (BMI) [Ratio] 49.6 kg/m2 Marilyn SINGH Work Phone: [facility] 10-19-2024 07:09-0400 Body weight 152.4 kg Marilyn Gordon SOUND PERSON-C Work Phone: [facility] 10-19-2024 07:09-0400 Diastolic blood pressure 76 mm[Hg] Marilyn Gordon SOUND PERSON-C Work Phone: [facility] 10-19-2024 07:09-0400 Heart rate 64 /min Marilyn Gordon SOUND PERSON-C Work Phone: [facility] 10-19-2024 07:09-0400 Respiratory rate 20 /min Marilyn Gordon SOUND PERSON-C Work Phone: [facility] 10-19-2024 07:09-0400 SaO2% (BldA) [Mass fraction] 97 % Marilyn Gordon SOUND PERSON-C Work Phone: [facility] 10-19-2024 07:09-0400 Systolic blood pressure 122 mm[Hg] Marilyn Gordon SOUND PERSON-C Work Phone: [facility] 07-22-2024 08:06-0400 Body temperature 98.3 [degF] Marilyn Gordon SOUND PERSON-C Work Phone: [facility] 07-22-2024 08:06-0400 Diastolic blood pressure 82 mm[Hg] Marilyn Gordon SOUND PERSON-C Work Phone: [facility] 07-22-2024 08:06-0400 Heart rate 71 /min Marilyn Gordon SOUND PERSON-C Work Phone: [facility] 07-22-2024 08:06-0400 Respiratory rate 17 /min Marilyn Gordon SOUND PERSON-C Work Phone: [facility] 07-22-2024 08:06-0400 SaO2% (BldA) [Mass fraction] 97 % Marilyn Gordon SOUND PERSON-C Work Phone: [facility] 07-22-2024 08:06-0400 Systolic blood pressure 138 mm[Hg] Marilyn Gordon SOUND PERSON-C Work Phone: [facility] 06-23-2023 21:12-0400 Body temperature 97.9 [degF] SOUND PERSON-C Marilyn Gordon SOUND PERSON Work Phone: [facility] 06-23-2023 21:12-0400 Diastolic blood pressure 95 mm[Hg] SOUND PERSON-C Marilyn Gordon SOUND PERSON Work Phone: [facility] 06-23-2023 21:12-0400 Heart rate 62 /min SOUND PERSON-C Marilyn Gordon SOUND PERSON Work Phone: [facility] 06-23-2023 21:12-0400 Respiratory rate 16 /min SOUND PERSON-C Marilyn Gordon SOUND PERSON Work Phone: [facility] 06-23-2023 21:12-0400 SaO2% (BldA) [Mass fraction] 97 % SOUND PERSON-C Marilyn Gordon SOUND PERSON Work Phone: [facility] 06-23-2023 21:12-0400 Systolic blood pressure 170 mm[Hg] SOUND PERSON-C Marilyn Gordon SOUND PERSON Work Phone: [facility] 06-23-2023 19:27-0400 Body mass index (BMI) [Ratio] 53 kg/m2 SOUND PERSON-C Marilyn Gordon SOUND PERSON Work Phone: [facility] 06-23-2023 19:27-0400 Body weight 162.9 kg SOUND PERSON-C Marilyn Gordon SOUND PERSON Work Phone: [facility] 06-23-2023 17:17-0400 Body height 175.26 cm SOUND PERSON-C Marilyn Gordon SOUND PERSON Work Phone: [facility] 04-22-2023 08:46-0500 Body height 175.26 cm SOUND PERSON-C Marilyn Gordon SOUND PERSON Work Phone: [facility] 04-22-2023 08:46-0500 Body mass index (BMI) [Ratio] 50.5 kg/m2 SOUND PERSON-C Marilyn Gordon SOUND PERSON Work Phone: [facility] 04-22-2023 08:46-0500 Body weight 155.12 kg SOUND PERSON-C Marilyn Gordon SOUND PERSON Work Phone: [facility] 04-22-2023 08:46-0500 Diastolic blood pressure 88 mm[Hg] SOUND PERSON-C Marilyn Gordon SOUND PERSON Work Phone: [facility] 04-22-2023 08:46-0500 Heart rate 64 /min SOUND PERSON-C Marilyn Gordon SOUND PERSON Work Phone: [facility] 04-22-2023 08:46-0500 Respiratory rate 16 /min SOUND PERSON-C Marilyn Gordon SOUND PERSON Work Phone: [facility] 04-22-2023 08:46-0500 Systolic blood pressure 144 mm[Hg] SOUND PERSON-C Marilyn Gordon SOUND PERSON Work Phone: [facility] 03-24-2023 06:54-0500 Body temperature 98.3 [degF] SOUND PERSON-C Marilyn Gordon SOUND PERSON Work Phone: [facility] 03-24-2023 06:54-0500 Diastolic blood pressure 80 mm[Hg] SOUND PERSON-C Marilyn Gordon SOUND PERSON Work Phone: [facility] 03-24-2023 06:54-0500 Heart rate 78 /min SOUND PERSON-C Marilyn Gordon SOUND PERSON Work Phone: [facility] 03-24-2023 06:54-0500 Respiratory rate 14 /min SOUND PERSON-C Marilyn Gordon SOUND PERSON Work Phone: [facility] 03-24-2023 06:54-0500 SaO2% (BldA) [Mass fraction] 98 % SOUND PERSON-C Marilyn Gordon SOUND PERSON Work Phone: [facility] 03-24-2023 06:54-0500 Systolic blood pressure 140 mm[Hg] SOUND PERSON-C Marilyn Gordon SOUND PERSON Work Phone: [facility] 09-19-2022 14:36-0400 Body height 175.26 cm SOUND PERSON-C Marilyn Gordon SOUND PERSON Work Phone: [facility] 09-19-2022 14:36-0400 Body mass index (BMI) [Ratio] 48.9 kg/m2 SOUND PERSON-C Marilyn Gordon SOUND PERSON Work Phone: [facility] 09-19-2022 14:36-0400 Body weight 150.13 kg SOUND PERSON-C Marilyn Gordon SOUND PERSON Work Phone: [facility] 09-19-2022 14:36-0400 Diastolic blood pressure 94 mm[Hg] SOUND PERSON-C Marilyn Gordon SOUND PERSON Work Phone: [facility] 09-19-2022 14:36-0400 Heart rate 68 /min SOUND PERSON-C Marilyn Gordon SOUND PERSON Work Phone: [facility] 09-19-2022 14:36-0400 Respiratory rate 18 /min SOUND PERSON-C Marilyn Gordon SOUND PERSON Work Phone: [facility] 09-19-2022 14:36-0400 Systolic blood pressure 150 mm[Hg] SOUND PERSON-C Marilyn Gordon SOUND PERSON Work Phone: [facility] 05-19-2022 16:48-0400 Body temperature 97.4 [degF] SOUND PERSON-C Marilyn Gordon SOUND PERSON Work Phone: [facility] 05-19-2022 16:48-0400 Diastolic blood pressure 90 mm[Hg] SOUND PERSON-C Marilyn Gordon SOUND PERSON Work Phone: [facility] 05-19-2022 16:48-0400 Heart rate 67 /min SOUND PERSON-C Marilyn Gordon SOUND PERSON Work Phone: [facility] 05-19-2022 16:48-0400 Respiratory rate 18 /min SOUND PERSON-C Marilyn Gordon SOUND PERSON Work Phone: [facility] 05-19-2022 16:48-0400 SaO2% (BldA) [Mass fraction] 98 % SOUND PERSON-C Marilyn Gordon SOUND PERSON Work Phone: [facility] 05-19-2022 16:48-0400 Systolic blood pressure 140 mm[Hg] SOUND PERSON-C Marilyn Gordon SOUND PERSON Work Phone: [facility] 03-06-2022 11:22-0500 Body height 175.26 cm SOUND PERSON-C Marilyn Gordon SOUND PERSON Work Phone: [facility] 03-06-2022 11:20-0500 Body mass index (BMI) [Ratio] 48.4 kg/m2 SOUND PERSON-C Marilyn Gordon SOUND PERSON Work Phone: [facility] 03-06-2022 11:20-0500 Body weight 148.77 kg SOUND PERSON-C Marilyn Gordon SOUND PERSON Work Phone: [facility] 03-06-2022 11:20-0500 Diastolic blood pressure 81 mm[Hg] SOUND PERSON-C Marilyn Gordon SOUND PERSON Work Phone: [facility] 03-06-2022 11:20-0500 Heart rate 72 /min SOUND PERSON-C Marilyn Gordon SOUND PERSON Work Phone: [facility] 03-06-2022 11:20-0500 Respiratory rate 18 /min SOUND PERSON-C Marilyn Gordon SOUND PERSON Work Phone: [facility] 03-06-2022 11:20-0500 SaO2% (BldA) [Mass fraction] 97 % SOUND PERSON-C Marilyn Gordon SOUND PERSON Work Phone: [facility] 03-06-2022 11:20-0500 Systolic blood pressure 133 mm[Hg] SOUND PERSON-C Marilyn Gordon SOUND PERSON Work Phone: [facility] 02-19-2022 09:01-0500 Body height 175.26 cm SOUND PERSON-C Marilyn Gordon SOUND PERSON Work Phone: [facility] Work Phone: 02-19-2022 09:01-0500 Body weight 147.41 kg SOUND PERSON-C Marilyn Gordon SOUND PERSON Work Phone: [facility] 02-18-2022 07:17-0500 Body mass index (BMI) [Ratio] 47.9 kg/m2 SOUND PERSON-C Marilyn Gordon SOUND PERSON Work Phone: [facility] 01-13-2022 15:05-0500 Body height 175.26 cm SOUND PERSON-C Marilyn Gordon SOUND PERSON Work Phone: [facility] Work Phone: 01-13-2022 15:05-0500 Body mass index (BMI) [Ratio] 48.1 kg/m2 SOUND PERSON-C Marilyn Gordon SOUND PERSON Work Phone: [facility] Work Phone: 01-13-2022 15:05-0500 Body weight 147.87 kg SOUND PERSON-C Marilyn Gordon SOUND PERSON Work Phone: [facility] Work Phone: 01-13-2022 15:05-0500 Diastolic blood pressure 92 mm[Hg] SOUND PERSON-C Marilyn Gordon SOUND PERSON Work Phone: [facility] Work Phone: 01-13-2022 15:05-0500 Heart rate 86 /min SOUND PERSON-C Marilyn Gordon SOUND PERSON Work Phone: [facility] Work Phone: 01-13-2022 15:05-0500 Respiratory rate 16 /min SOUND PERSON-C Marilyn Gordon SOUND PERSON Work Phone: [facility] Work Phone: 01-13-2022 15:05-0500 Systolic blood pressure 148 mm[Hg] SOUND PERSON-C Marilyn Gordon SOUND PERSON Work Phone: [facility] Work Phone: 11-08-2021 06:51-0400 Body mass index (BMI) [Ratio] 46 kg/m2 SOUND PERSON-C Marilyn Gordon SOUND PERSON Work Phone: [facility] Work Phone: 11-08-2021 06:51-0400 Body temperature 98.7 [degF] SOUND PERSON-C Marilyn Gordon SOUND PERSON Work Phone: [facility] Work Phone: 11-08-2021 06:51-0400 Body weight 142.65 kg SOUND PERSON-C Marilyn Gordon SOUND PERSON Work Phone: [facility] Work Phone: 11-08-2021 06:51-0400 Diastolic blood pressure 80 mm[Hg] SOUND PERSON-C Marilyn Gordon SOUND PERSON Work Phone: [facility] Work Phone: 11-08-2021 06:51-0400 Heart rate 76 /min SOUND PERSON-C Marilyn Gordon SOUND PERSON Work Phone: [facility] Work Phone: 11-08-2021 06:51-0400 Respiratory rate 18 /min SOUND PERSON-C Marilyn Gordon SOUND PERSON Work Phone: [facility] Work Phone: 11-08-2021 06:51-0400 Systolic blood pressure 118 mm[Hg] SOUND PERSON-C Marilyn Gordon SOUND PERSON Work Phone: [facility] Work Phone: Encounters Encounter Date Encounter Type Care Provider Facility Start: 12-21-2024 End: 12-21-2024 ambulatory Marilyn Gordon SOUND PERSON Facility:[facility] Start: 11-23-2024 End: 11-23-2024 ambulatory Marilyn Gordon SOUND PERSON-C Work Phone: -[facility]trasound [facility] Start: 11-23-2024 End: 11-23-2024 Patient encounter procedure Marilyn Gordon SOUND PERSON-C -Ultrasound [facility] Work Phone: Start: 11-23-2024 End: 11-23-2024 ambulatory Marilyn Gordon SOUND PERSON Facility:[facility] Start: 11-16-2024 End: 11-16-2024 ambulatory Marilyn Gordon SOUND PERSON-C Work Phone: -[facility] [place] Start: 11-16-2024 End: 11-16-2024 Patient encounter procedure Marilyn Gordon SOUND PERSON-C -[facility] [place] Work Phone: Start: 11-16-2024 End: 11-16-2024 ambulatory Marilyn Gordon SOUND PERSON Facility:[facility] Start: 10-21-2024 Registered [employer] [facility] Start: 10-21-2024 End: 10-21-2024 ambulatory Marilyn Gordon SOUND PERSON-C Work Phone: -Laboratory Start: 10-21-2024 End: 10-21-2024 Patient encounter procedure Marilyn Gordon SOUND PERSON-C -Laboratory Work Phone: Start: 10-20-2024 End: 10-20-2024 Patient encounter procedure Radha Mello SOUND PERSON-C -[facility] Work Phone: Start: 10-20-2024 End: 10-21-2024 ambulatory Marilyn Gordon SOUND PERSON-C Work Phone: -[facility] Start: 07-22-2024 End: 07-22-2024 Patient encounter procedure Sylvain Adler [place] -[facility] Work Phone: Start: 07-22-2024 End: 07-22-2024 ambulatory Marilyn Gordon SOUND PERSON-C Work Phone: [facility] Work Phone: Start: 07-14-2024 End: 07-14-2024 ambulatory Marilyn Grodon SOUND PERSON-C Work Phone: [facility] Work Phone: Start: 07-14-2024 End: 07-14-[address] Ruben Marie MD -Laboratory, [place] Work Phone: Start: 07-14-2024 End: 07-14-2024 ambulatory Ruben Marie [facility] [facility] Start: 06-23-2023 End: 06-23-2023 Emergency department patient visit SOUND PERSON-C Marilyn Gordon SOUND PERSON Work Phone: [facility]-Emergency Department Work Phone: Start: 05-09-2023 End: 05-09-2023 ambulatory SOUND PERSON-C Marilyn Gordon SOUND PERSON Work Phone: [facility] Work Phone: Start: 05-09-2023 End: 05-09-2023 Patient encounter procedure SOUND PERSON-C Marilyn Gordon SOUND PERSON Work Phone: [facility]-Laboratory Work Phone: Start: 04-29-2023 End: 04-29-2023 Patient encounter procedure SOUND PERSON-C Marilyn Gordon SOUND PERSON Work Phone: [facility]-Laboratory Work Phone: Start: 04-22-2023 End: 04-22-2023 Patient encounter procedure SOUND PERSON-C Marilyn Gordon SOUND PERSON Work Phone: [facility] Work Phone: Start: 03-24-2023 End: 03-24-2023 Patient encounter procedure SOUND PERSON-C Marilyn Gordon SOUND PERSON Work Phone: [facility] Work Phone: Start: 09-19-2022 End: 09-19-2022 Patient encounter procedure SOUND PERSON-C Marilyn Gordon SOUND PERSON Work Phone: [facility] Work Phone: Start: 09-17-2022 End: 09-17-2022 ambulatory SOUND PERSON-C Marilyn Gordon SOUND PERSON Work Phone: [facility] Work Phone: Start: 09-17-2022 End: 09-17-2022 Patient encounter procedure SOUND PERSON-C Marilyn Gordon SOUND PERSON Work Phone: [facility]-Laboratory Work Phone: Start: 06-03-2022 End: 06-03-2022 ambulatory SOUND PERSON-C Marilyn Gordon SOUND PERSON Work Phone: [facility] Work Phone: Start: 06-03-2022 End: 06-03-2022 Patient encounter procedure SOUND PERSON-C Marilyn Gordon SOUND PERSON Work Phone: [facility] Start: 05-19-2022 End: 05-19-2022 Patient encounter procedure SOUND PERSON-C Marilyn Gordon SOUND PERSON Work Phone: [facility] Start: 05-08-2022 End: 05-08-2022 ambulatory SOUND PERSON-C Marilyn Gordon SOUND PERSON Work Phone: [facility] Work Phone: Start: 05-08-2022 End: 05-08-2022 Patient encounter procedure SOUND PERSON-C Marilyn Gordon SOUND PERSON Work Phone: [facility]-Laboratory Start: 04-28-2022 Non-patient / Non-visit SOUND PERSON-C Marilyn Gordon SOUND PERSON Work Phone: [facility] Start: 04-28-2022 End: 04-28-2022 Patient encounter procedure SOUND PERSON-C Marilyn Gordon SOUND PERSON Work Phone: [facility]-Cardiovascular Services Start: 03-06-2022 End: 03-06-2022 Patient encounter procedure SOUND PERSON-C Marilyn Gordon SOUND PERSON Work Phone: [facility] Start: 02-19-2022 End: 02-19-2022 Admission to same day surgery center SOUND PERSON-C Marilyn Gordon SOUND PERSON Work Phone: [facility]-Supervisor Treating And Pumping/Special Procedures Start: 02-19-2022 End: 02-19-2022 ambulatory SOUND PERSON-C Marilyn Gordon SOUND PERSON Work Phone: [facility] Work Phone: Start: 02-19-2022 End: 02-19-2022 Non-patient / Non-visit SOUND PERSON-C Marilyn Gordon SOUND PERSON Work Phone: [facility] Start: 02-15-2022 End: 02-15-2022 ambulatory SOUND PERSON-C Marilyn Gordon SOUND PERSON Work Phone: [facility] Work Phone: Start: 02-15-2022 End: 02-15-2022 Patient encounter procedure SOUND PERSON-C Marilyn Gordon SOUND PERSON Work Phone: [facility]-Laboratory Start: 02-13-2022 Non-patient / Non-visit SOUND PERSON-C Marilyn Gordon SOUND PERSON Work Phone: [facility] Start: 01-27-2022 Non-patient / Non-visit SOUND PERSON-C Marilyn Gordon SOUND PERSON Work Phone: [facility] Start: 01-23-2022 Non-patient / Non-visit SOUND PERSON-C Marilyn Gordon SOUND PERSON Work Phone: [facility] Start: 01-23-2022 End: 01-23-2022 Patient encounter procedure SOUND PERSON-C Marilyn Gordon SOUND PERSON [facility] Start: 01-23-2022 Non-patient / Non-visit SOUND PERSON-C Marilyn Gordno SOUND PERSON Work Phone: [facility] Start: 01-13-2022 End: 01-13-2022 Patient encounter procedure SOUND PERSON-C Marilyn Gordon SOUND PERSON Work Phone: [facility] Start: 11-08-2021 End: 11-08-2021 Patient encounter procedure SOUND PERSON-C Marilyn Gordon SOUND PERSON Work Phone: [facility] Start: 10-22-2021 End: 10-22-2021 Patient encounter procedure [facility]-Laboratory Start: 09-19-2021 End: 10-06-2021 Discharged Recurring [facility]-Employee Health Start: 08-29-2021 End: 08-29-2021 Patient encounter procedure [facility]-Laboratory, Specimen Start: 08-26-2021 End: 09-05-2021 [facility] 08-26-2021 [facility] Start: 08-15-2021 End: 09-05-2021 [facility] Start: 08-15-2021 [facility] Start: 08-06-2021 End: 08-06-2021 Patient encounter procedure [facility]-Laboratory Start: 06-20-2021 End: 07-06-2021 Discharged Recurring [facility] Start: 04-22-2021 End: 05-06-2021 Discharged Recurring [facility] Start: 03-18-2021 End: 03-18-2021 Patient encounter procedure [facility]-Laboratory Start: 01-15-2017 End: 01-20-2017 Ambulatory MARILYN GORDON Facility:[facility] Procedures Date Procedure Procedure Detail Performing Clinician Start: 11-23-2024 Other BP Soft Tissue Li gneie Gordon SOUND PERSON-C Work Phone: Start: 10-21-2024 Hepatitis C antibody measurement Marilyn Gordon SOUND PERSON-C Work Phone: Comment on above: Reactive: Presumptiv e evidence of antibodies to HCV. Follow CDC recommendations for supplemental testing.Non-Reactive: Antibodies to HCV were not detected; does not exclude the possibility of exposure to HCVReactive Results are presumptive evidence of antibodies to HCV. Follow CDC recommendations for supplemental testing.Order confirmation testing: HCV Quant by PCR testing - HCVPCR lc#[id number] Non Reactive: < 0.8 Equivocal: >/= 0.8 to < 1.0 Reactive: >/= 1.0The CDC requires that a reactive/equivocal HCV antibody result be sent out for confirmation. HCV Quant by PCR testing. Start: 10-21-2024 Prostate specific an tigen measurement Marilyn Gordon SOUND PERSON-C Work Phone: Comment on above: This test [...] Serum inorganic phos phate measurement Marilyn Gordon SOUND PERSON-C Work Phone: Start: 10-21-2024 Urnls dip stick/tabl et reagent auto microscopy Marilyn Gordon SOUND PERSON-C Work Phone: Start: 06-23-2023 CT of abdomen and pe lvis without contrast SOUND PERSON-C Marilyn Gordon SOUND PERSON Work Phone: Start: 06-03-2022 MRI of brain with contrast SOUND PERSON-C Marilyn Gordon SOUND PERSON Work Phone: Start: 02-15-2022 Plain chest X-ray SOUND PERSON-C Marilyn Gordon SOUND PERSON Work Phone: Start: 01-23-2022 Radionuclide imaging of perfusion of myocardium under exercise stress SOUND PERSON-Emely Gordon SOUND PERSON Work Phone: Start: 06-20-2021 End: 06-20-2021 Viral antigen assay Start: 04-22-2021 SARS-CoV-2 Antigen (Rapid) Viral antigen assay Plan of Treatment Date Care Activity Detail Author Start: 11-23-2024 Other BP Soft Tissue Other BP Soft Tissue [facility] Start: 11-23-[address] [facility] Start: 06-23-[address] [facility] Catheterization of l eft heart [facility] Work Phone: Patient Education ED Flank Pain, Uncertain Cause ED Pulmonary Nodule, Solitary [facility] Work Phone: Patient referral [facility] Work Phone: [facility] Immunizations Immunization Date Immunization Notes Care Provider Duyen cool 12-24-2023 influenza, seasonal, injectable, preservative free Marilyn Gordon SOUND PERSON-C Work Phone: [facility] 01-12-2023 influenza, injectabl e, quadrivalent, preservative free SOUND PERSON-C Marilyn Gordon SOUND PERSON Work Phone: [facility] 12-16-2021 influenza, injectabl e, quadrivalent, preservative free SOUND PERSON-C Marilyn Lorson SOUND PERSON Work Phone: [facility] 12-16-2021 influenza, seasonal, injectable SOUND PERSON-C Marilyn Mcnultyson SOUND PERSON Work Phone: [facility] 12-20-2020 influenza, injectabl e, quadrivalent, preservative free SOUND PERSON-C Marilyn Lorson SOUND PERSON Work Phone: [facility] 12-20-2020 influenza, seasonal, injectable [facility] 04-17-2020 Covid (Moderna) [facility] 03-20-2020 Covid (Moderna) [facility] 12-14-2019 influenza, injectabl e, quadrivalent, preservative free SOUND PERSON-C Marilyn Mcnultyson SOUND PERSON Work Phone: [facility] 12-14-2019 influenza, seasonal, injectable [facility] 01-31-2019 influenza, injectabl e, quadrivalent, preservative free SOUND PERSON-C Marilyn Mcnultyson SOUND PERSON Work Phone: [facility] 01-31-2019 influenza, seasonal, injectable [facility] 02-19-2015 influenza, injectabl e, quadrivalent, preservative free SOUND PERSON-C Marilyn Lorson SOUND PERSON Work Phone: [facility] 02-19-2015 influenza, seasonal, injectable [facility] 12-15-2013 influenza, injectabl e, quadrivalent, preservative free SOUND PERSON-C Marilyn Mcnultyson SOUND PERSON Work Phone: [facility] 12-15-2013 influenza, seasonal, injectable [facility] 01-31-2013 Influenza virus vaccine [facility] Payers Date Payer Category Payer Self-pay [id number] 2024 Unknown [id number] 2017 Unknown [id number] Unknown [id number] Unknown [id number] 2.16.8 [id number] Unknown [id number] 2.16.8 [id number] Unknown [id number] 2.16.8 [id number] Unknown [id number] 2.16.8 [id number] Unknown [id number] 2.16.8 [id number] Unknown [id number] 2.16.8 [id number] Unknown [id number] 2.16.8 [id number] Unknown [id number] 2.16.8 [id number] Unknown [id number] 2.16.8 [id number] Social History Date Type Detail Facility Start: 01-11-2021 End: 06-23-2023 Tobacco smoking status NHIS Unknown if ever smoked [facility] Start: 02-08-2019 Non-smoker [facility] Start: 1970 Sex Assigned At Male [facility] Start: 06-23-2023 Tobacco smoking stat us AZIS Never smoked tobacco (finding) [facility] Sex Male [facility] Medical Equipment Procedure Code Equipment Code [...] 01-18-2019 Femoral vessel s uture implantation set [id number] FDA Start: 02-19-2022 TUBE,EAR T-TUBE FDA Start: [...] FDA Start: 01-18-2019 Clinical Notes 03-09-2019 to 11-25-2024 Note Date & Type Note Facility 11-25-2024 Radiology Diagnostic study note [facility] Imaging Services [address] [place] [address] Other Unlisted US Procedure MR#: [id number] Acct: [id number] Name: KAMALA BRASWELL JrOctavia Rep #: [id number] : 1970 M 54 From: Zeeshan Navarro MD PCP: FRANCISCO Escalona Status: REG C LI Study:Other Unlisted US Procedure Date of Exa m: 11/23/24 Exam# [id number] Ordering Dr: Hemal Gordon NP SOUND PERSON-C PROCEDURE: OTHER UNLISTED US PROCEDURE 11/23/2024 REASON FOR EXAM: Right supraclavicular palpable abnormality. TECHNIQUE: Procedure Code: USOTH SOFT Modality: US Procedure: OTHER UNLISTED US PROCEDURE COMPARISON: None FINDINGS: The palpable lump corresponds to a normal vessel. US/Other Unlisted US Procedure IMPRESSION: The palpable abnormality corresponds to a normal vessel. Reading Location: [place] [address] CC: NIKO-C Marilyn Gordon ~ Supervisor Telephone Answering Service: Signed [facility] 10-20-2024 Evaluation note Diagnosis Onset Date Resolution Coronary artery disease chronic A ugust 2024 7:50am Hyperlipidemia chronic October 7:50am Hypertension chronic October 20, 2024 7:50am CORBIN treated with BiPAP [facility] 2024 7:50am [facility] Work Phone: 1(961) 852-493605-16-2025 Evaluation note* Diagnosis Onset Date Resolution Status Admit Date Acute upper respiratory infection acute July 22, 2024 7 :58am Coronary artery disease chronic A ugust 2024 7:50am Hyperlipidemia chronic October 7:50am Hypertension chronic October 20, 2024 7:50am CORBIN treated with BiPAP [facility] 2024 7:50am [facility] Work Phone: 1(646) 141-714704-16-2024 Discharge summary Author Jere Zhu [facility] June 23, 2023 9:02pm Note Date/Time June 23, 2023 6:0 4pm [facility] Medical Records Department [address] [place] [id number] Emergency Department Summary 06/23/23 MR#: [id number] Acct: [id number] Name: MICHAELLEKAMALA ADY Christiansen Rep #:[id number] : 1970 52 From: [...] Denies nausea or vomiting. Denies constipation ordiarrhea. PFSH [facility] Medical History Abnormal stress test Chest pain [...] Clarity Clear Urine pH 7.0 Ur Specific [place] 1.005 Urine Protein Negative Urine Glucose (UA) [...] Q5-15M PRN Patient Comments: TAKE 1 TABLET [id number] EVERY 5 MINUTES NEEDED FOR CHEST PAIN [...] Marilyn Gordon NP Referrals: Marilyn Gordon NP, SOUND PERSON-C [Primary Care Provider] - Disposition Disposition: Home, Self Care What to do if you have Problems For any increased pain, shortness of breath, bleeding, nausea or vomiting, chestpain, or any unexpected problems, contact your Primary Care Provider. Call [facility] ([phone]) or report to the closest Emergency Room. Call 911 if necessary. 06/23/232101 <Electronically signed by Jere Zhu DO> Cosigner Signature (if applicable): CC: JOHNC Marilyn Gordon ~ Signed [facility] Work Phone: 1(956) 194-289901-01-2020 Chief complaint+Reason for visit Narrative * Chief Complaint COVID-19/[facility] EMPLOYE E LAST SEEN 03/2019 NN PT CHEST TIGHTNESS CHEST TIGHTNESS CHEST PAIN/ABNORMAL STRESS TST EORDER- LABS AND XRAY Reason for Visit Chest pain Hyperlipidemia Hypertension [facility] Work Phone: 1(319) 948-632401-01-2020 Chief complaint+Reason for visit Narrative * Chief Complaint COVID-19/[facility] EMPLOYE E LAST SEEN 03/2019 NN PT CHEST TIGHTNESS CHEST TIGHTNESS CHEST PAIN/ABNORMAL STRESS TST EORDER- LABS AND XRAY CHEST PAIN/ABNORMAL STRESS TST Reason for Visit Chest pain Hyperlipidemia Hypertension [facility] Work Phone: Evaluation noteNo assessment information available [facility] Work Phone: Evaluation note* Diagnosis Onset Date Resolution Status Chest pain acute Hyperlipidemia chronic Hypertension [facility] Work Phone: Evaluation note* Diagnosis Onset Date Resolution Status Chest pain chronic Hyperlipidemia chronic Hypertension [facility] Work Phone: Evaluation note* Diagnosis Onset Date Resolution Status Chest pain chronic Hyperlipidemia chronic Hypertension chronic Exacerbation of gout acute [facility] Work Phone: Evaluation note* Diagnosis Onset Date Resolution Status Chest tightness chronic Coronary artery disease [employer] [place] Hyperlipidemia chronic Hypertension chronic CORBIN treated with BiPAP [facility] Work Phone: Evaluation note* Diagnosis Onset Date Resolution Status Hordeolum externum left lower eyelid acute Coronary artery disease [employer] [place] Hyperlipidemia chronic Hypertension chronic Morbid obesity chronic CORBIN treated with BiPAP chron [facility] Work Phone: Reason for referral (narrative)No reason for referral information [facility] Work [facility]: Summary Purpose Family History No [...] Will No February 08 8:58am Power of Pediatric Social Worker No February 08, 2019 8:58am Advance Directive Response Recorded Date/ Time Advance Directives No February 08, 2019 7:58am Living Will No February 08 7:58am Power of Pediatric Social Worker No February 08, 2019 7:58am Advance Directive Response Recorded Date/ Time Advance Directives No February 7:35am Living Will No February 18 7:35am Power of Pediatric Social Worker No February 18, 2022 7:35am Advance Directive Response Recorded Date/ Time Advance Directives No February 8:35am Living Will No February 18 8:35am Power of Pediatric Social Worker No February 18, 2022 8:35am Advance Directive Response Recorded Date/ Time Advance Directives No February 8:35am Living Will No June 23, 2023 6:27pm Power of Pediatric Social Worker No June 22 6:27pm Advance Directive Response [...] THROAT July 22, 2024 7:58am EMPLOYEE COVID/ [facility] July 22, 2024 8:09a m Chief Complaint Admit Date 2 ORDERING AKILAH July 14, 2024 7:14am COUGH, FEVER LAST NIGHT, SORE THROAT July 22, 2024 7:58am EMPLOYEE [email or web address] July 22, 2024 8:09a m 1 Y [...] SORE THROAT July 22, 2024 7:58am EMPLOYEE [email or web address] July 22, 2024 8:09a m 1 Y FU October 20, 2024 7: 50am EMPLOYEE LABS October 21, 2024 6: 43am Chief Complaint Admit Date 1 Y FU October 20, 2024 7: 50am EMPLOYEE LABS October 21, 2024 6: 43am URINE COLLECTION November 16, 2024 7:20am Localized swelling, mass and lump, trunk November 23, 2024 3:39pm Reason for Visit Admit Date Coronary artery disease October 20 7:50am Hyperlipidemia October 20, 2024 7: 50am Hypertension October 20, 2024 7: 50am CORBIN treated with BiPAP October 20, 2024 7:50am Additional Source Comments (unrecognized sect ion and content) No Status Records FoundNo Status Records Found INFORMATION SOURCE (unrecogn ized section and content) DATE CREATED AUTHOR 09/01/2017 [facility] ([place]) DATE CREATED AUTHOR AUTHOR'S ORGANIZ ATION 01/02/2025 [facility] Goals (unrecognized section and content) [...] Active Member Role Status Dates Marilyn Gordon SOUND PERSON, SOUND PERSON-C Family Provider Active Marilyn Gordon SOUND PERSON, SOUND PERSON-C Primary Care Provider Active Team Status: Inactive Member Role Status Dates Marilyn Gordon SOUND PERSON, SOUND PERSON-C Primary Care Provider, Referri ng Provider Active Evelio Foss SOUND PERSON, SOUND PERSON-C Attending Provider Active Team Status: Active Member Role Status Dates Marilyn Gordon SOUND PERSON, SOUND PERSON-C Primary Care Provider Active Dr. Neftali Asencio MD Attending Provider Active Evelio Foss SOUND PERSON, SOUND PERSON-C Referring Provider Active Team Status: Active Member Role Status Dates Marilyn Gordon SOUND PERSON, SOUND PERSON-C Primary Care Provider Active Evelio Foss SOUND PERSON, SOUND PERSON-C Other Provider Active Dr. Dixie Arita MD Attending Provider Activ e Team Status: Active Member Role Status Dates Marilyn Gordon SOUND PERSON, SOUND PERSON-C Primary Care Provider Active Dr. Dixie Arita MD Other Provider Active Evelio Foss SOUND PERSON, SOUND PERSON-C Attending Provider Active Team Status: Active Member Role Status Dates Marilyn Gordon SOUND PERSON, SOUND PERSON-C Primary Care Provider Active Dr. Dixie Arita MD Attending Provider Activ e Evelio Foss SOUND PERSON, SOUND PERSON-C Referring Provider Active Team Status: Active Member Role Status Dates Marilyn Gordon SOUND PERSON, SOUND PERSON-C Primary Care Provider Active Dr. Dixie Arita MD Attending Provider, Refe rring Provider Active Team Status: Active Member Role Status Dates Marilyn Gordon SOUND PERSON, SOUND PERSON-C Primary Care Provider Active Dr. Neftali Asencio MD Attending Provider Active Team Status: Inactive Member Role Status Dates Marilyn Gordon SOUND PERSON, SOUND PERSON-C Primary Care Provider Active Evelio Foss SOUND PERSON, SOUND PERSON-C Attending Provider Active Team Status: Inactive Member Role Status Dates Marilyn Gordon NP, SOUND PERSON-C Primary Care Provider Active Dr. Dixie Arita MD Attending Provider, Refe rring Provider Active Team Status: Inactive Member Role Status Dates Marilyn Gordon SOUND PERSON, SOUND PERSON-C Primary Care Provider Active Evelio Jael Pipo SOUND PERSON, SOUND PERSON-C Attending Provider, Referring Pro vider Active Team Status: Inactive Member Role Status Dates Marilyn Gordon SOUND PERSON, SOUND PERSON-C Primary Care Provider Active Dr. Dixie Arita MD Attending Provider Activ e Team Status: Inactive Member Role Status Dates Marilyn Gordon SOUND PERSON, SOUND PERSON-C Primary Care Pro vider, Attending Provider, Referring Provider Active Team Status: Active Member Role Status Dates Marilyn Gordon SOUND PERSON, SOUND PERSON-C Primary Care Provider Active Dr. Neftali Asencio MD Attending Provider Active Dr. Dixie Arita MD Referring Provider Activ e Team Status: Inactive Member Role Status Dates Marilyn Gordon SOUND PERSON, SOUND PERSON-C Primary Care Provider, Referri ng Provider Active Robert Monroy PA, PA Attending Provider Active Team Status: Inactive Member Role Status Dates Marilyn Gordon SOUND PERSON, SOUND PERSON-C Primary Care Provider, Referri ng Provider Active Dr. Mt Varela MD Attending Provider Active Team Status: Inactive Member Role Status Dates Marilyn Gordon SOUND PERSON, SOUND PERSON-C Primary Care Provider, Attendi ng Provider Active Dr. Mt Vraela MD Referring Provider Active Team Status: Inactive Member Role Status Dates Marilyn Gordon SOUND PERSON, SOUND PERSON-C Primary Care Provider Active Dr. Jere Zhu DO Emergency Provider Active Team Status: Inactive Member Role Status Dates Marilyn Gordon SOUND PERSON, SOUND PERSON-C Primary Care Provider Active Start: July 14, [...] Active Member Role Status Dates Marilyn Gordon SOUND PERSON, SOUND PERSON-C Primary Care Provider Active Start: July 22, 2024 Marilyn Gordon SOUND PERSON, SOUND PERSON-C Referring Provider Active Start: July 22, 2024 Sylvain SEVILLA, PA Attending Provider Active Sta rt: July 22, 2024 Team Status: Inactive Member Role Status Dates Marilyn Gordon SOUND PERSON, SOUND PERSON-C Primary Care Provider Active Start: July 22, 2024 End: July 22, 2024 Marilyn Gordon SOUND PERSON, SOUND PERSON-C Referring Provider Active Start: July 22, 2024 End: July 22, 2024 Sylvain SEVILLA, PA Attending Provider Active Sta rt: July 22, 2024 End: July 22, 2024 Team Status: Active Member Role/Relationship Status Dates Marilyn Gordon SOUND PERSON, SOUND PERSON-C Family Provider Active Marilyn Gordon SOUND PERSON, SOUND PERSON-C Primary Care Provider Active Team Status: Inactive Member Role/Relationship Status Dates Marilyn Gordon SOUND PERSON, SOUND PERSON-C Primary Care Provider Active Start: July 14, [...] Inactive Member Role/Relationship Status Dates Marilyn Gordon SOUND PERSON, SOUND PERSON-C Primary Care Provider Active Start: July 22, 2024 End: July 22, 2024 Marilyn Gordon SOUND PERSON, SOUND PERSON-C Referring Provider Active Start: July 22, 2024 End: July 22, 2024 Sylvain SEVILLA, PA Attending Provider Active Sta rt: July 22, 2024 End: July 22, 2024 Team Status: Inactive Member Role/Relationship Status Dates Marilyn Gordon SOUND PERSON, SOUND PERSON-C Primary Care Provider Active Start: July 22, 2024 End: July 22, 2024 Marilyn Gordon SOUND PERSON, SOUND PERSON-C Referring Provider Active Start: July 22, 2024 End: July 22, 2024 Sylvain SEVILLA, PA Attending Provider Active Sta rt: July 22, 2024 End: July 22, 2024 Team Status: Inactive Member Role/Relationship Status Dates Marilyn Gordon SOUND PERSON, SOUND PERSON-C Primary Care Provider Active Start: October 20, 2024 End: October 20, 2024 Marilyn Gordon SOUND PERSON, SOUND PERSON-C Referring Provider Active Start: October 20, 2024 End: October 20, 2024 Radha Mello NP, SOUND PERSON-C Attending Provider Active Start: October 20, 2024 End: October 20, 2024 Team Status: Inactive Member Role/Relationship Status Dates Marilyn Gordon SOUND PERSON, SOUND PERSON-C Primary Care Provider Active Start: October 21, 2024 End: October 21, 2024 Marilyn Gordon SOUND PERSON, SOUND PERSON-C Attending Provider Active Start: October 21, 2024 End: October 21, 2024 Marilyn Gordon SOUND PERSON, SOUND PERSON-C Referring Provider Active Start: October 21, 2024 End: October 21, 2024 Team Status: Active Member Role/Relationship Status Dates Marilyn Gordon SOUND PERSON, SOUND PERSON-C Primary Care Provider Active Start: October 21, 2024 Health Risk Assessment Attending Provider Active Start: October 21, 2024 Health Risk Assessment Referring Provider Active Start: October 21, 2024 Team Status: Active Member Role/Relationship Status Dates Marilyn Gordon SOUND PERSON, SOUND PERSON-C Primary care physician Active Team Status: Inactive Member Role/Relationship Status Dates Marilyn Gordon SOUND PERSON, SOUND PERSON-C Primary care physician Active Start: October 20, 2024 End: October 20, 2024 Marilyn Gordon SOUND PERSON, SOUND PERSON-C Referring Provider Active Start: October 20, 2024 End: October 20, 2024 Radha Mello SOUND PERSON, SOUND PERSON-C Attending physician Active Start: October 20, 2024 End: October 20, 2024 Team Status: Inactive Member Role/Relationship Status Dates Marilyn Gordon SOUND PERSON, SOUND PERSON-C Primary care physician Active Start: October 21, 2024 End: October 21, 2024 Marilyn Gordon SOUND PERSON, SOUND PERSON-C Attending physician Active Start: October 21, 2024 End: October 21, 2024 Marilyn Gordon SOUND PERSON, SOUND PERSON-C Referring Provider Active Start: October 21, 2024 End: October 21, 2024 Team Status: Active Member Role/Relationship Status Dates Marilyn Gordon NP, SOUND PERSON-C Primary care physician Active Start: October 21, 2024 Health Risk Assessment Attending physician Active Start: October 21, 2024 Health Risk Assessment Referring Provider Active Start: October 21, 2024 Team Status: Inactive Member Role/Relationship Status Dates Marilyn Gordon NP, SOUND PERSON-C Primary care physician Active Start: November 16, 2024 End: November 16, 2024 Marilyn Gordon NP, SOUND PERSON-C Attending physician Active Start: November 16, 2024 End: November 16, 2024 Marilyn Gordon SOUND PERSON, SOUND PERSON-C Referring Provider Active Start: November 16, 2024 End: November 16, 2024 Team Status: Active Member Role/Relationship Status Dates Marilyn Gordon NP, SOUND PERSON-C Primary care physician Active Start: November 23, 2024 Marilyn Gordon NP, SOUND PERSON-C Attending physician Active Start: November 23, 2024 Marilyn Gordon NP, SOUND PERSON-C Referring Provider Active Start: November 23, 2024 Team Status: Inactive Member Role/Relationship Status Dates Marilyn Gordon NP SOUND PERSON-C Primary care physician Active Start: November 23, 2024 End: November 23, 2024 Marilyn Gordon NP SOUND PERSON-C Attending physician Active Start: November 23, 2024 End: November 23, 2024 Marilyn Gordon NP, SOUND PERSON-C Referring Provider Active Start: November 23, 2024 End: November 23, 2024 FOR RECORDS PERTAINING TO PATIENTS WHO [...] BE BASED ON THE PRIMARY CLINICAL RECORDS. [employer] provides no warranty or guarantee of the accuracy or completeness of information in this document.
[2025-01-08 13:48] LABS: Differential Indicated SCAN CRITERIA MET
[2025-01-08 13:57] LABS: Anion Gap 10 (5-15); BUN 14 mg/dL (4-19); BUN/Creat Ratio 13.0 RATIO (10-20); Calcium,Total 8.9 mg/dL (7.6-11.0); Carbon Dioxide 20.6 mmol/L (21.0-32.0); Chloride 104 mmol/L (98-108); Estimated Creatinine Clearance 117.75 ml/min (50-250); Glucose 104 mg/dL (70-99); Potassium 4.3 mmol/L (3.3-5.1); Troponin T High Sensitivity 11 ng/L (<=22)
--- NOTE | 2025-01-08 14:15 | HP.PCM.HOS_ITS ---
[facility] - General General Date of Admission: 01/08/25 Date of Service: 01/08/25 Chief Complaint: Right upper extremity numbness and speech abnormality, strokelike symptoms today HPI Narrative KAMALA BRASWELL, is a 54 M who presents to ED with his for right upper extremity weakness, numbness, facial numbness and speech abnormality. Symptoms started half an hour prior to arrival to ED. Patient said he felt he could not speak/slurring and does not know what to speak. Symptoms resolved by the time patient came to ED. ED prearrival stroke alert was called. The patient was seen by [facility] neurologist and recommended full stroke workup. Not candidate of tenecteplase. Patient further admitted to PCU for full stroke workup [facility] Medical History Hypertension Home Medications ?Medication ?Instructions ?Recorded ?Last Taken ?Type amlodipine 5 mg tablet 5 mg PO DAILY 01/08/25 Unkno wn History aspirin 81 mg tablet,delayed 81 mg PO DAILY 01/08/25 U nknown History release (Adult Aspirin Regimen) atorvastatin 40 mg tablet (Lipitor) 40 mg PO DAILY 05/03 Unknown History losartan 100 mg tablet 100 mg PO DAILY 01/08/25 Unk nown History Social History housing: house Smoking Status: Never smoker ROS ROS Narrative Constitutional: Reports fatigue and weakness. No fever. HEENT: Reports systems reviewed and no addt'l complaints, except as documented Respiratory/Chest: Uses BiPAP, sleep apnea. No acute shortness of breath or respiratory distress or wheezing. CVS: No acute chest pain pressure or tightness. No history of KS/cardiac stent Gastrointestinal: Denies coffee ground emesis, hematemesis or vomiting Genitourinary: Denies burning urination or new urinary tract symptoms Musculoskeletal: Denies acute joint pain or limited range of motion. No acute injury Neurologic: Denies seizure-like symptoms. Rest as described in HPI skin: No ulcer. No rash Endocrinology: Reports systems reviewed and no addt'l complaints, except as documented Hematologic/Lymphatic: Reports systems reviewed and no addt'l complaints, except as documented Rest 14 ROS are negative except as mentioned in HPI Vital Signs Vital Signs Vital Signs: 01/08/25 12:38 01/08/25 12:51 01/08/25 12:51 Temperature 98.3 F Temperature Source Oral Pulse Rate 73 73 Respiratory Rate 16 18 Blood Pressure 185/100 H 185/100 H Blood Pressure Mean 128 128 Pulse Ox 99 100 96 Oxygen Delivery Method Room Air Room Air 01/08/25 12:51 01/08/25 13:29 01/08/25 13:30 Temperature Temperature Source Pulse Rate 73 67 77 Respiratory Rate 18 18 20 H Blood Pressure 185/100 H 147/87 H 147/87 H Blood Pressure Mean 128 107 107 Pulse Ox 100 99 100 Oxygen Delivery Method 01/08/25 14:08 Temperature 98.2 F Temperature Source Pulse Rate 77 Respiratory Rate 20 H Blood Pressure 147/87 H Blood Pressure Mean 107 Pulse Ox 100 Oxygen Delivery Method Weight Weight: 351 lb Body Mass Index (BMI) 53.4 Physical Exam Narrative General: Alert, Oriented x3, Cooperative. Morbid obesity BMI 53.4 kg/m? HEENT: Atraumatic, PERRLA, EOMI, Normocephalic. Oral: No Gingival or Mucosal Lesions/ Ulcerations Neck: Supple, No JVD, Negative Carotid Bruits Chest wall/Lungs: Air entry severely diminished in bilateral lung bases. No crepitation/rhonchi Cardiovascular: Regular rate and rhythm, Normal S1,S2, No M/G/R Abdomen: Bowel Sounds Present, Soft, Non Tender, Non-Distended : No dysuria. No renal angle tenderness. No suprapubic tenderness. Extremities: No edema, Capillary Refill Less than 3 Seconds Skin: No rashes, No breakdown Musculoskeletal: Muscle strength 5/5 at major joints of upper and lower extremities. No Tenderness to Palpation of Joints or Extremities Neurological: Cranial nerves II-XII grossly intact, DTR 2+/4.NIH stroke scale 1 due to decreased sensation in right side of face. Psych/Mental Status: Normal Affect, Appropriate. Results Lab / Micro Data 01/08/25 13:15 01/08/25 13:15 Labs: Laboratory Results - last 24 hr 01/08/25 13:15: WBC 9.3, RBC 4.35 L, Hgb 13.8, Hct 41.0, MCV 94.3 H, MCH 31.7, MCHC 33.7, RDW Std Deviation 45.7 H, RDW Coeff of Loree 13.3, Plt Count 178, MPV 10.4, Immature Gran % (Auto) 0.500, Neut % (Auto) 69.1, Lymph % (Auto) 19.2, [place] % (Auto) 9.5, Eos % (Auto) 1.2, Baso % (Auto) 0.5, Absolute Neuts (auto) 6.4, Absolute Lymphs (auto) 1.79, Nucleated RBC % 0, Platelet Estimate ADEQUATE, PT 12.7, INR 0.9, APTT Cancelled, Sodium 135, Potassium 4.3, Chloride 104, C arbon Dioxide 20.6 L, Anion Gap 10, BUN 14, Creatinine 1.05, Estim Creat Clear Calc 117.75, Est GFR (MDRD) Non-Af 84, BUN/Creatinine Ratio 13.0, Glucose 104 H, Calcium 8.9, Troponin T High Sens 11 Imaging Radiology Impression Brain CT 01/08/25 12:41 IMPRESSION: No acute abnormality. The given the history of neuro deficit, and the concern for stroke, MRI with diffusion-weighted imaging is recommended. Reading Location: [facility] Head/Neck CTA 01/08/25 12:54 IMPRESSION: Normal CTA head/neck. Reading [facility] Assessment & Plan Assessment/Plan (1) TIA (transient ischemic attack): PLAN: Plan This 54-year-old gentleman came to ED for stroke workup. 1. Strokelike symptoms/TIA including right upper extremity weakness numbness and cellulitis and mild speech abnormality: Patient is being admitted in PCU. CT head shows no acute abnormality. CT headache reported normal. Twelve-lead EKG NSR 69 bpm, QTc 405 ms. PT, OT, speech therapy/swallow evaluation and management, nursing NIH stroke scale, BP and glucose monitoring and control as per stroke protocol. TSH, A1c fasting lipid profile tomorrow AM. MRI brain and 2D echo with bubble contrast study ordered. On baby aspirin and atorvastatin ordered 2. Hypertension: Blood pressure was high in ED triage, 185/100. Most recent is better 147/87 within stroke guidelines. At home patient on losartan 100 mg daily and amlodipine 5 mg daily 3. Dyslipidemia: Patient on atorvastatin. 4. Prediabetes: Patient states that he has borderline diabetes. Glucose 104 mg/dL. A1c tomorrow a.m. Morbid obesity with obstructive sleep apnea/obesity hypoventilation syndrome: BMI 53.4 kg/m?. Patient on BiPAP at home, continued. Patient does not smoke cigarettes. Living will/advanced directive/end of life care: Patient does not have living will or advanced directive. He does not have DailyD power of turn down worker for health but his next to the kin present in the ED. After discussion of benefits/risks procedures involved with full code, DNR CC arrest and DNR CC, the patient opted for full code. Patient does want artificial life support including intubation, tube feed, ventilator and/chest compression, central venous catheter, vasopressor and DC shock if needed Total time spent in [id number] encounter in discussion of advanced directive 17 minutes. Laboratory Results 01/08/25 13:15: WBC 9.3, RBC 4.35 L, Hgb 13.8, Hct 41.0, MCV 94.3 H, MCH 31.7, MCHC 33.7, RDW Std Deviation 45.7 H, RDW Coeff of Loree 13.3, Plt Count 178, MPV 10.4, Immature Gran % (Auto) 0.500, Neut % (Auto) 69.1, Lymph % (Auto) 19.2, [place] % (Auto) 9.5, Eos % (Auto) 1.2, Baso % (Auto) 0.5, Absolute Neuts (auto) 6.4, Absolute Lymphs (auto) 1.79, Nucleated RBC % 0, Platelet Estimate ADEQUATE, PT 12.7, INR 0.9, APTT Cancelled, Sodium 135, Potassium 4.3, Chloride 104, Carbon Dioxide 20.6 L, Anion Gap 10, BUN 14, Creatinine 1.05, Estim Creat Clear Calc 117.75, Est GFR (MDRD) Non-Af 84, BUN/Creatinine Ratio 13.0, Glucose 104 H, Calcium 8.9, Troponin T High Sens 11 01/08/25 14:08: APTT 21.7 L Clinical Impression(s) from Imaging Studies Brain CT 01/08/25 12:41 IMPRESSION: No acute abnormality. The given the history of neuro deficit, and the concern for stroke, MRI with diffusion-weighted imaging is recommended. Reading Location: [facility] Head/Neck CTA 01/08/25 12:54 IMPRESSION: Normal CTA head/neck. Reading Location: [facility] [place] Charges/Coding Visit Charges Inpatient E&M: 12979 Init Hosp L3 Procedures Hospitalists Procedures: 42506 Advncd Care Plan 30 Min
[2025-01-08 14:23] LABS: Partial Thromboplast Time 21.7 Seconds (24.1-36.2)
--- OUTSIDE RECORDS SUMMARY | 2025-01-08 14:25 | XMS RPT_ITS | CCD ---
Author Organization [facility] Care Team Providers Care Innovation Analyst Name Role Phone MARILYN GORDON Unavailable Unavailable MARILYN GORDON Unavailable Unavailable Shaheed CHEMISTRY LECTURER, CHEMISTRY LECTURER-C Marilyn Primary Care Provider [phone] Shaheed CHEMISTRY LECTURER, CHEMISTRY LECTURER-C Marilyn Referring Provider [phone] DI Rodriguez Attending Provider [phone] Roof CHEMISTRY LECTURER, CHEMISTRY LECTURER-C Evelio Elder Attending Provider Dr. Neftali Asencio Attending Provider [phone] Roof CHEMISTRY LECTURER, CHEMISTRY LECTURER-C Evelio Elder Referring Provider Roof CHEMISTRY LECTURER, CHEMISTRY LECTURER-C Evelio H Other Provider [phone] Dr. Dixie Arita Attending Provider [phone] Dr. Dixie Arita Other Provider Shaheed CHEMISTRY LECTURER, CHEMISTRY LECTURER-C Marilyn Primary Care Provider Dr. Dixie Arita Attending Provider [phone] Roof CHEMISTRY LECTURER, CHEMISTRY LECTURER-C Evelio Elder Referring Provider Roof CHEMISTRY LECTURER, CHEMISTRY LECTURER-C Evelio H Attending Provider Dr. Dixie Arita Referring Provider [phone] Pricilason CHEMISTRY LECTURER, CHEMISTRY LECTURER-C Marilyn Referring Provider [phone] Shaheed CHEMISTRY LECTURER, CHEMISTRY LECTURER-C Marilyn Primary Care Provider Dr. Dixie Arita Other Provider Roof CHEMISTRY LECTURER, CHEMISTRY LECTURER-C Evelio Elder Attending Provider Dr. Dixie Arita Attending Provider [phone] Dr. Dixie Arita Referring Provider [phone] L[place]on CHEMISTRY LECTURER, CHEMISTRY LECTURER-C Marilyn Referring Provider [phone] Dr. Neftali Asencio Attending Provider [phone] DI Mitchell Attending Provider [place] CHEMISTRY LECTURER, CHEMISTRY LECTURER-C Marilyn Primary Care Provider [phone] [place] CHEMISTRY LECTURER, CHEMISTRY LECTURER-C Marilyn Referring Provider [phone] Dr. [place] Attending Provider [phone] [place] CHEMISTRY LECTURER, CHEMISTRY LECTURER-C Marilyn Primary Care Provider [phone] [place]on CHEMISTRY LECTURER, CHEMISTRY LECTURER-C Marilyn Referring Provider [phone] DI Mitchell Attending Provider Dr. [place] Attending Provider [phone] [place] CHEMISTRY LECTURER, CHEMISTRY LECTURER-C [place] Primary Care Provider [place] CHEMISTRY LECTURER, CHEMISTRY LECTURER-C Marilyn Referring Provider [phone] DI Mitchell Attending Provider Dr. [place] Attending Provider [phone] [place] CHEMISTRY LECTURER-C, Marilyn Primary Care Provider [phone] Dr. Ruben Marie MD Attending Provider Dr. Ruben Marie MD Referring Provider Lyla Camacho Other Provider [phone] [place] CHEMISTRY LECTURER-C, Marilyn Referring Provider [phone] Sylvain Rodrigeuz Attending Provider [phone] Riaz POPE-CRadha Attending Provider [phone] Shaheed CHEMISTRY LECTURER-CMarilyn Attending Provider [phone] Assessment, Health Risk Attending Provider Unava ilable Assessment, Health Risk Referring Provider Unava ilable Pricilason CHEMISTRY LECTURER-CMarilyn Primary Care Physician [phone] Pricilason CHEMISTRY LECTURER-C, Marilyn Referring Provider [phone] Riaz POPE-CRadha Attending Physician [phone] Shaheed CHEMISTRY LECTURER-C, Marilyn Attending Physician Assessment, Health Risk Attending Physician Unav ailable Shaheed CHEMISTRY LECTURER, Marilyn Primary Care Unavailable [place] CHEMISTRY LECTURER, Marilyn Attending Unavailable [place] CHEMISTRY LECTURER, [place] Primary Care Unavailable [place] CHEMISTRY LECTURER, Marilyn Attending Unavailable [place] CHEMISTRY LECTURER, Marilyn Referring Unavailable [place] CHEMISTRY LECTURER, [place] Primary Care Unavailable Assessment, Health Risk Attending Unavaila ble Assessment, Health Risk Referring Unavaila ble [place] CHEMISTRY LECTURER, Marilyn Referring Unavailable [place] CHEMISTRY LECTURER, Marilyn Attending Unavailable [place] CHEMISTRY LECTURER, [place] Primary Care Unavailable [place] CHEMISTRY LECTURER, Marilyn Referring Unavailable [place] CHEMISTRY LECTURER, Marilyn Primary Care Unavailable Pricilason CHEMISTRY LECTURER, Marilyn Attending Unavailable Pricilason CHEMISTRY LECTURER, Marilyn Referring Unavailable Riaz POPE, Radha Attending Unavailable Pricilason CHEMISTRY LECTURER, Marilyn Primary Care Unavailable [place] CHEMISTRY LECTURER, Marilyn Referring Unavailable [place] CHEMISTRY LECTURER, Marilyn Primary Care Unavailable Sylvain Rodriguez Attending Unavailable Pricilason CHEMISTRY LECTURER, Marilyn Referring Unavailable Pricilason CHEMISTRY LECTURER, [place] Primary Care Unavailable Sylvain Rodriguez Attending Unavailable Ruben Marie Attending Unavailable Ruben Marie Referring Unavailable Lyla Camacho Unavail able Shaheed CHEMISTRY LECTURER, [facility] Care Unavailable Medications Current Medications Medication Drug [...] sources) Anticholinergic Start: 07-22-2024 End: 10-20-2024 Ipratropium [place] 21 mcg (0.03 %) spray,non-aerosol Discontinued 2 NMA INTRANASAL 2 to 3 times per day as needed for postnasal drainage 30 July 22, 2024 12:00am October 20, 2024 7:55am administer into each nostril Ipratropium [place] 21 mcg (0.03 %) spray,non-aerosol (2 sources) Start: 07-22-2024 End: 10-20-2024 Ipratropium [place] 21 mcg (0.03 %) spray,non-aerosol Discontinued 2 [...] Coronary arteriosclerosis; Translations: [Atherosclerotic heart disease of [place] coronary artery without angina pectoris] 09-19-2022 Chronic [...] 12-22-2024 [facility] Culture exhibits no growth. Normal [facility] Comment on above: Performed By: #### M 100.2200 #### [facility] [address] [place], [place], [address] Other Unlisted US Procedureo n 11-23-2024 Other Unlisted US Procedure [facility] [address] [place], [place] [address] Other Unlisted US Procedure MR#: [id number] Acct: [id number] Name: KAMALA BRASWELL Rep #: [id number] : 1970 M 54 From: Roland lester MD PCP: FRANCISCO Escalona Status: REG CLI Study: Other Unlisted US Procedure Date of Exam: 11/07 09/30 Exam# [id number] Ordering Dr: Marilyn Gordon NP CHEMISTRY LECTURER -C PROCEDURE: OTHER UNLISTED US PROCEDURE 11/23/2024 REASON FOR EXAM: Right supraclavicular palpable abnormality. TECHNIQUE: Procedure Code: USOTH SOFT Modality: US Procedure: OTHER UNLISTED US PROCEDURE COMPARISON: None FINDINGS: The palpable lump corresponds to a normal vessel. US/Other Unlisted US Procedure IMPRESSION: The palpable abnormality corresponds to a normal vessel. Reading Location: [place] [address] CC: FRANCISCO Gordon Quality Eng: Signed Normal [facility] Microalb:Creat Ratio,Random URon 11-16-2024 Creatinine [Mass/Vol] 108.00 mg/dL Normal 39.00-259.00 [facility] Comment on above: Performed By: #### L 502.0250, L400.0001 ####[facility] [address] [place] [address] MALB:CREAT UNABLE TO CALCULATE Normal <30 mg/g CRE [facility] Comment on above: Performed By: #### L 502.0250, L400.0001 ####[facility] [address] [place] [address] MICROALBUMIN,UR < 12.0 Normal <20 mg/L [facility] Comment on above: Performed By: #### L 502.0250, L400.0001 ####[facility] [address] [facility] [address] Microalbumin/creat ratio urO rdered By: Marilyn Gordon on 11-16-2024 Urine microalbumin/creatinine ratio measurement UNABLE TO CALCULATE mg/g CRE <30 [facility] Random urine creatinine danica urement (mass/volume)Ordered By: Marilyn Gordon on 11-16-2024 Creatinine Unsp time (U) [Mass/Vol] 108.00 mg/dL 39.00-259.00 [facility] Urinalysis, Completeon 11-16 BACTERIA 0 SEEN Normal None Seen [facility] Comment on above: Order Comment: CLEAN CATCH Result Comment: WRON G Performed By: #### L 502.0250, L400.0001 ####[facility] [address] [place], [address] EPI,SQUAMOUS 0 SEEN Normal 0-5 [facility] Comment on above: Order Comment: CLEAN CATCH Result Comment: WRON G Performed By: #### L 502.0250, L400.0001 ####[facility] [address] [place], [address] Mucus Ql (Urine sed) 0 SEEN Normal [facility] Comment on above: Order Comment: CLEAN CATCH Result Comment: WRON G Performed By: #### L 502.0250, L400.0001 ####[facility] [address] [place], [address] RBC 0 SEEN Normal 0-5 [facility] Comment on above: Order Comment: CLEAN CATCH Result Comment: WRON G Performed By: #### L 502.0250, L400.0001 ####[facility] [address] [place], [address] WBC 0 SEEN Normal 0-5 [facility] Comment on above: Order Comment: CLEAN CATCH Result Comment: WRON G Performed By: #### L 502.0250, L400.0001 ####[facility] [address] [place], [address] BILIRUBIN URINE Normal Negative [facility] Comment on above: Order Comment: CLEAN CATCH Result Comment: WRON G Performed By: #### L 502.0250, L400.0001 ####[facility] [address] [place], [address] Clarity (U) Normal Clear [facility] Comment on above: Order Comment: CLEAN CATCH Result Comment: WRON G Performed By: #### L 502.0250, L400.0001 ####[facility] [address] [place], [address] Color (U) Normal Yellow [facility] Comment on above: Order Comment: CLEAN CATCH Result Comment: WRON G Performed By: #### L 502.0250, L400.0001 ####[facility] [address] [place], [address] GLUCOSE, UR Normal Normal [facility] Comment on above: Order Comment: CLEAN CATCH Result Comment: WRON G Performed By: #### L 502.0250, L400.0001 ####[facility] [address] [place], [address] KETONE UR Normal Negative [facility] Comment on above: Order Comment: CLEAN CATCH Result Comment: WRON G Performed By: #### L 502.0250, L400.0001 ####[facility] [address] [place], [address] LEUK ESTERASE Normal Negative [facility] Comment on above: Order Comment: CLEAN CATCH Result Comment: WRON G Performed By: #### L 502.0250, L400.0001 ####[facility] [address] [place], [address] Nitrite Ql (U) Normal Negative [facility] Comment on above: Order Comment: CLEAN CATCH Result Comment: WRON G Performed By: #### L 502.0250, L400.0001 ####[facility] [address] [place], [address] OCCULT BLOOD-UR Normal Negative [facility] Comment on above: Order Comment: CLEAN CATCH Result Comment: WRON G Performed By: #### L 502.0250, L400.0001 ####[facility] [address] [place], [address] pH UR Normal 5.0 - 8.0 [facility] Comment on above: Order Comment: CLEAN CATCH Result Comment: WRON G Performed By: #### L 502.0250, L400.0001 ####[facility] [address] [place], [address] PROT DIPSTX Normal Negative [facility] Comment on above: Order Comment: CLEAN CATCH Result Comment: WRON G Performed By: #### L 502.0250, L400.0001 ####[facility] [address] [place], [address] SP.GR. DIPSTX Normal 1.002-1.030 [facility] Comment on above: Order Comment: CLEAN CATCH Result Comment: WRON G Performed By: #### L 502.0250, L400.0001 ####[facility] [address] [place], [address] UR Preservative Normal [facility] Comment on above: Order Comment: CLEAN CATCH Result Comment: WRON G Performed By: #### L 502.0250, L400.0001 ####[facility] [address] [place], [address] UROBILI Normal Normal [facility] Comment on above: Order Comment: CLEAN CATCH Result Comment: WRON G Performed By: #### L 502.0250, L400.0001 ####[facility] [address] [place], [address] Urine albumin measurement [facility] detection limit of 20 mg/L or less (mass/volume)Ordered By: Marilyn Gordon on 11-16-2024 Albumin DL <= 20 mg/L (U) [Mass/Vol] < 12.0 mg/L <20 mg/L [facility] Absolute lymphocyte countOrd ered By: HEALTH ASSESSMENT on 10-21-2024 Lymphocytes Auto (Unsp spec) [#/Vol] 1.62 10*3/uL 0.83-4.51 [facility] Absolute neutrophil countOrd ered By: HEALTH ASSESSMENT on 10-21-2024 Neutrophils (Bld) [#/Vol] 5.7 10*3/uL 2.0-7.7 [facility] Absolute nucleated red blood cell countOrdered By: HEALTH ASSESSMENT on 10-21-2024 Nucleated RBC (Bld) [#/Vol] 0.00 10*3/uL 0-5 [facility] Anion gap in Serum or Plasma Ordered By: HEALTH ASSESSMENT on 10-21-2024 Anion gap [Moles/Vol] 10 mmol/L 5- [facility] BUN/creatinine ratioOrdered By: HEALTH ASSESSMENT on 10-21-2024 Urea nitrogen/Creatinine [Mass ratio] 19.2 mg/mg 10-20 [facility] Bilirubin Test strip Ql (U)O rdered By: HEALTH ASSESSMENT on 10-21-2024 Bilirubin Ql (U) Negative Negative [facility] Bilirubin directOrdered By: HEALTH ASSESSMENT on 10-21-2024 Bilirubin.direct [Mass/Vol] 0.18 mg/dL 0.00-0.30 [facility] Bilirubin, totalOrdered By: HEALTH ASSESSMENT on 10-21-2024 Bilirubin [Mass/Vol] 0.38 mg/dL 0.00-1.30 [facility] Blood band neutrophil count as percentage of total leukocytesOrdered By: HEALTH ASSESSMENT on 10-21-2024 Band form neutrophils/100 WBC (Bld) 69.0 % 47-70 [facility] CBC, Employeeon 10-21-2024 Absolute Lymph 1.62 X10 3/uL Normal 0.83-4.51 [facility] Comment on above: Performed By: #### L 100.0200, L400.0100, L500.2900 #### [facility] [address] [place], [address] Absolute Neut 5.7 X10 3/uL Normal 2.0-7.7 [facility] Comment on above: Performed By: #### L 100.0200, L400.0100, L500.2900 #### [facility] [address] [place], [address] Basophils/100 WBC (Bld) 0.2 % Normal 0-1 [facility] Comment on above: Performed By: #### L 100.0200, L400.0100, L500.2900 #### [facility] [address] [place], [address] Eosinophils/100 WBC (Bld) 1.2 % Normal 0-5 [facility] Comment on above: Performed By: #### L 100.0200, L400.0100, L500.2900 #### [facility] [address] [place], [address] Erythrocyte distribution width (RBC) [Ratio] 13.4 % Normal 11.6-14.6 [facility] Comment on above: Performed By: #### L 100.0200, L400.0100, L500.2900 #### [facility] [address] [place], [address] Hematocrit (Bld) [Volume fraction] 40.6 % Normal 40-54 [facility] Comment on above: Performed By: #### L 100.0200, L400.0100, L500.2900 #### [facility] [address] [place], [address] Hemoglobin (Bld) [Mass/Vol] 14.0 g/dL Normal 13.0-16.5 [facility] Comment on above: Performed By: #### L 100.0200, L400.0100, L500.2900 #### [facility] [address] [place], [address] Lymphocytes/100 WBC (Bld) 19.7 % Normal 19-41 [facility] Comment on above: Performed By: #### L 100.0200, L400.0100, L500.2900 #### [facility] [address] [place], [address] MCH (RBC) [Entitic mass] 32.6 pg High 27.0-32.0 [facility] Comment on above: Performed By: #### L 100.0200, L400.0100, L500.2900 #### [facility] [address] [place], [address] MCHC (RBC) [Mass/Vol] 34.5 g/dL Normal 32-36 [facility] Comment on above: Performed By: #### L 100.0200, L400.0100, L500.2900 #### [facility] [address] [place], [address] MCV (RBC) [Entitic vol] 94.6 fL High 80-94 [facility] Comment on above: Performed By: #### L 100.0200, L400.0100, L500.2900 #### [facility] [address] [place], [address] Monocytes/100 WBC (Bld) 9.0 % Normal 0-10 [facility] Comment on above: Performed By: #### L 100.0200, L400.0100, L500.2900 #### [facility] [address] [place], [address] Neutrophils/100 WBC (Bld) 69.0 % Normal 47-70 [facility] Comment on above: Performed By: #### L 100.0200, L400.0100, L500.2900 #### [facility] [address] [place], [address] NRBC # 0.00 10 3/uL Normal 0-5 [facility] Comment on above: Performed By: #### L 100.0200, L400.0100, L500.2900 #### [facility] [address] [place], [address] Nucleated RBC (Bld) [#/Vol] 0 10*3/uL Normal 0-5 [facility] Comment on above: Performed By: #### L 100.0200, L400.0100, L500.2900 #### [facility] [address] [place], [address] Platelet mean volume (Bld) [Entitic vol] 10.6 fL Normal 6.2-12.0 [facility] Comment on above: Performed By: #### L 100.0200, L400.0100, L500.2900 #### [facility] [address] [place], [address] Platelets (Bld) [#/Vol] 226 10*3/uL Normal 150-450 [facility] Comment on above: Performed By: #### L 100.0200, L400.0100, L500.2900 #### [facility] [address] [place], [address] RBC (Bld) [#/Vol] 4.29 10*6/uL Low 4.6-6.2 [facility] Comment on above: Performed By: #### L 100.0200, L400.0100, L500.2900 #### [facility] [address] [place], [address] RDW SD 46.9 fl High 35.1-43.9 [facility] Comment on above: Performed By: #### L 100.0200, L400.0100, L500.2900 #### [facility] [address] [place], [address] WBC (Bld) [#/Vol] 8.2 10*3/uL Normal 4.4-11.0 [facility] Comment on above: Performed By: #### L 100.0200, L400.0100, L500.2900 #### [facility] [address] [place], [address] Calculated very low density lipoprotein (VLDL) cholesterol measurementOrdered By: HEALTH ASSESSMENT on 10-21-2024 Calculated very low density lipoprotein (VLDL) cholesterol measurement 21 mg/dL 5-40 [facility] Carbon dioxide, total [Moles /volume] in Central venous bloodOrdered By: HEALTH ASSESSMENT on 10-21-2024 CO2 [Moles/Vol] 23.6 mmol/L 21.0-32.0 [facility] Chloride assayOrdered By: HE ALTH ASSESSMENT on 10-21-2024 Chloride [Moles/Vol] 104 mmol/L 98-108 [facility] Employee Profileon CHOL:HDL 3.68 Normal [facility] Comment on above: Order Comment: SEND NIKKI BARNETT,LIPID Performed By: #### L 100.0200, L400.0100, L500.2900 ####[facility] [address] [place], [address] Cholesterol [Mass/Vol] 138 mg/dL Normal <=200 [facility] Comment on above: Order Comment: SEND NIKKI BARNETT,LIPID Result Comment: Chol esterol level, Desirable <200 mg/dL Borderline high cholesterol 200-239 mg/dL High cholesterol >=240 mg/dL Recommendations of the NCEP Adult Treatment Panel for the following risk-cutoff thresholds for the [place] population. Performed By: #### L 100.0200, L400.0100, L500.2900 ####[facility] [address] [place], [address] Cholesterol in HDL [Mass/Vol] 38 mg/dL Low [facility] Comment on above: Order Comment: SEND NIKKI [facility],LIPID Result Comment: Maira onal Cholesterol Education Program (NCEP) guidelines: <40 mg/dL: Low HDL-cholesterol (major risk factor for CHD) >= 60 mg/dL: High HDL-cholesterol (negative risk factor for CHD) HDL-cholesterol is affected by a number of factors, e.g. smoking, exercise, hormones, sex and age. Performed By: #### L 100.0200, L400.0100, L500.2900 ####[facility] [address] [place], [address] Cholesterol in LDL [Mass/Vol] 79 mg/dL Normal [facility] Comment on above: Order Comment: SEND NIKKI [facility],LIPID Result Comment: Bord gcxqoo=449-417 mg/dL Higher Gvde=217 mg/dL or greater Friedwald Equation for LDL-C Performed By: #### L 100.0200, L400.0100, L500.2900 ####[facility] [address] [place], [address] Cholesterol in VLDL [Mass/Vol] 21 mg/dL Normal 5-40 [facility] Comment on above: Order Comment: SEND CHEMISTRY LECTURER.ANDREEA CMP,LIPID Performed By: #### L 100.0200, L400.0100, L500.2900 ####[facility] [address] [place], [address] LDH 182 U/L Normal 87-241 [facility] Comment on above: Order Comment: SEND CHEMISTRY LECTURER.ANDREEA CMP,LIPID Performed By: #### L 100.0200, L400.0100, L500.2900 ####[facility] [address] [place], [address] Phosphate [Mass/Vol] 3.2 mg/dL Normal 2.7-4.5 [facility] Comment on above: Order Comment: SEND CHEMISTRY LECTURER.ANDREEA CMP,LIPID Performed By: #### L 100.0200, L400.0100, L500.2900 ####[facility] [address] [place], [address] Triglyceride [Mass/Vol] 106 mg/dL Normal [facility] Comment on above: Order Comment: SEND CHEMISTRY LECTURER.ANDREEA CMP,LIPID Result Comment: The drugs N-Acetylcysteine and Metamizole may falsely depress this assay. Normal range: <150 mg/dL Borderline High: 150-199 mg/dL High: 200-499 mg/dL Very High: >500 mg/dL Performed By: #### L 100.0200, L400.0100, L500.2900 ####[facility] [address] [place], [address] URIC 8.8 mg/dL High 3.5-7.2 [facility] Comment on above: Order Comment: SEND CHEMISTRY LECTURER.ANDREEA CMP,LIPID Result Comment: The drugs N-Acetylcysteine and Metamizole may falsely depress this assay. Performed By: #### L 100.0200, L400.0100, L500.2900 ####[facility] [address] [place], [place], [address] Erythrocyte distribution wid th ratioOrdered By: HEALTH ASSESSMENT on 10-21-2024 Erythrocyte distribution width (RBC) [Ratio] 13.4 % 11.6-14.6 [facility] Erythrocyte distribution wid th standard deviationOrdered By: HEALTH ASSESSMENT on 10-21-2024 Erythrocyte distribution width (RBC) [Ratio] 46.9 fl High 35.1-43.9 [facility] Glomerular filtration rate ( GFR) estimation/1.73 sq m using serum, plasma, or whole bOrdered By: HEALTH ASSESSMENT on 10-21-2024 GFR/1.73 sq M.predicted among non-blacks MDRD (S/P/Bld) [Vol rate/Area] 78 mL/min/{1.73_m2} >60 [facility] Comment on above: mL/min/1.73m2 CKD-EP I Creatinine Equation (2020) Hematocrit Auto (Bld) [Volum e fraction]Ordered By: HEALTH ASSESSMENT on 10-21-2024 Hematocrit (Bld) [Volume fraction] 40.6 % 40-54 [facility] Hemoglobin A1con 10-21-2024 HbA1c (Bld) [Mass fraction] 5.8 % High <=5.6 [facility] Comment on above: Result Comment: Norm al < 5.7 % Prediabetic 5.7 - 6.4 % Diabetic >or= 6.5 % Please note range changes. Performed By: #### L 501.9985, L3890.6301, L501.9910 #### [facility] [address] [place], [place], [address] Hemoglobin A1c percentageOrd ered By: Marilyn Gordon on 10-21-2024 HbA1c (Bld) [Mass fraction] 5.8 % High <5.7 [facility] Comment on above: Normal < 5.7 % Predi abetic 5.7 - 6.4 % Diabetic >or= 6.5 % Please note range changes. Hemoglobin measurementOrdere d By: HEALTH ASSESSMENT on 10-21-2024 Hemoglobin (Bld) [Mass/Vol] 14.0 g/dL 13.0-16.5 [facility] Hepatitis C Antibodyon 10-21 Hepatitis C Ab Non-Reactive Normal Nonreactive [facility] Comment on above: Result Comment: Reac tive: Presumptive evidence of antibodies to HCV. Follow CDC recommendations for supplemental testing. Non-Reactive: Antibodies to HCV were not detected; does not exclude the possibility of exposure to HCV Reactive Results are presumptive evidence of antibodies to HCV. Follow CDC recommendations for supplemental testing. Order confirmation testing: HCV Quant by PCR testing - HCVPCR #[id number] Non Reactive: < 0.8 Equivocal: >/= 0.8 to < 1.0 Reactive: >/= 1.0 The CDC requires that a reactive/equivocal HCV antibody result be sent out for confirmation. HCV Quant by PCR testing. Performed By: #### L 501.9985, L3890.6301, L501.9910 #### [facility] [address] [place], [address] Ketones Test strip Ql (U)Ord ered By: HEALTH ASSESSMENT on 10-21-2024 Ketones Ql (U) Negative Negative [facility] LDL calc ser/plasOrdered By: HEALTH ASSESSMENT on 10-21-2024 Cholesterol in LDL [Mass/Vol] 79 mg/dL [facility] Comment on above: Upyzxxsaoj=488-475 m g/dL & Higher Isqs=526 mg/dL or greaterFriedwald Equation for LDL-C Laboratory - Chemistry and C hemistry - challengeOrdered By: HEALTH ASSESSMENT on 10-21-2024 AST [Catalytic activity/Vol] 29 U/L <38 [facility] Lactate dehydrogenase (LDH) measurementOrdered By: HEALTH ASSESSMENT on 10-21-2024 LDH [Catalytic activity/Vol] 182 U/L 87-241 [facility] MCV (mean corpuscular volume ) determinationOrdered By: HEALTH ASSESSMENT on 10-21-2024 MCV (RBC) [Entitic vol] 94.6 fL High 80-94 [facility] Mean corpuscular hemoglobin (MCH) determinationOrdered By: HEALTH ASSESSMENT on 10-21-2024 MCH (RBC) [Entitic mass] 32.6 pg High 27.0-32.0 [facility] Mean corpuscular hemoglobin concentration (MCHC) determinationOrdered By: HEALTH ASSESSMENT on 10-21-2024 MCHC (RBC) [Mass/Vol] 34.5 g/dL 32-36 [facility] Mean platelet volume determi nationOrdered By: HEALTH ASSESSMENT on 10-21-2024 Platelet mean volume (Bld) [Entitic vol] 10.6 fL 6.2-12.0 [facility] Nitrite Test strip Ql (U)Ord ered By: HEALTH ASSESSMENT on 10-21-2024 Nitrite Ql (U) Negative Negative [facility] Nucleated red blood cell per centageOrdered By: HEALTH ASSESSMENT on 10-21-2024 Nucleated RBC/100 WBC (Bld) [Ratio] 0 % 0-5 [facility] PSA,Total - Annual Screenon 10-21-2024 PSA,TOT SCREEN 0.74 ng/mL Normal 0.02-4.00 [facility] Comment on above: Result Comment: This test was performed using the [employer] tPSA method. Measured values of a patient??sample can vary depending on the testing procedure used. PSA values determined on patient samples by different testing procedures cannot be used interchangeably. If there is a change in PSA assays while monitoring therapy, sequential testing should be performed to confirm baseline values. Performed By: #### L 501.9985, L3890.6301, L501.9910 #### [facility] [address] [place], [address] Platelet countOrdered By: BETZY ALTH ASSESSMENT on 10-21-2024 Platelets (Bld) [#/Vol] 226 10*3/uL 150-450 [facility] Potassium measurement (mass/ volume)Ordered By: HEALTH ASSESSMENT on 10-21-2024 Potassium (Unsp spec) [Mass/Vol] 4.5 mmol/L 3.3-5.1 [facility] Protein Test strip Ql (U)Ord ered By: HEALTH ASSESSMENT on 10-21-2024 Protein Ql (U) 15 mg/dl High Negative [facility] RBC Auto (Bld) [#/Vol]Ordere d By: HEALTH ASSESSMENT on 10-21-2024 RBC (Bld) [#/Vol] 4.29 10*6/uL Low 4.6-6.2 [facility] Screening total cholesterol/ high density lipoprotein (HDL) cholesterol ratioOrdered By: HEALTH ASSESSMENT on 10-21-2024 Cholesterol.total/Choles terol in HDL [Mass ratio] 3.68 {ratio} [facility] Serum creatinine measurement (mass/volume)Ordered By: HEALTH ASSESSMENT on 10-21-2024 Creatinine [Mass/Vol] 1.11 mg/dL 0.70-1.20 [facility] Serum globulin measurementOr dered By: HEALTH ASSESSMENT on 10-21-2024 Globulin (S) [Mass/Vol] 2.7 g/dL 2.2-4.2 [facility] Serum glucose measurement (m ass/volume)Ordered By: HEALTH ASSESSMENT on 10-21-2024 Glucose [Mass/Vol] 114 mg/dL High 70-99 [facility] Serum or plasma alanine aguilera otransferase (ALT) measurementOrdered By: HEALTH ASSESSMENT on 10-21-2024 ALT [Catalytic activity/Vol] 28 U/L <47 [facility] Serum or plasma albumin danica urement (mass/volume)Ordered By: HEALTH ASSESSMENT on 10-21-2024 Albumin [Mass/Vol] 4.0 g/dL 3.5-5.0 [facility] Serum or plasma albumin/glob ulin mass ratioOrdered By: HEALTH ASSESSMENT on 10-21-2024 Albumin/Globulin [Mass ratio] 1.4 {ratio} 0.9-2.4 [facility] Serum or plasma alkaline medina sphatase measurementOrdered By: HEALTH ASSESSMENT on 10-21-2024 ALP [Catalytic activity/Vol] 102 U/L 40-129 [facility] Serum or plasma calcium danica urement (mass/volume)Ordered By: HEALTH ASSESSMENT on 10-21-2024 Calcium [Mass/Vol] 9.0 mg/dL 7.6-11.0 [facility] Serum or plasma cholesterol in HDL measurement (mass/volume)Ordered By: HEALTH ASSESSMENT on 10-21-2024 Cholesterol in HDL [Mass/Vol] 38 mg/dL Low >40 [facility] Comment on above: National Cholesterol Education Program (NCEP) guidelines:<40 mg/dL: Low HDL-cholesterol (major risk factor for CHD)>= 60 mg/dL: High HDL-cholesterol (negative risk factor for CHD)HDL-cholesterol is affected by a number of factors, e.g. smoking, exercise, hormones, sex and age. Serum or plasma cholesterol measurement (mass/volume)Ordered By: HEALTH ASSESSMENT on 10-21-2024 Cholesterol [Mass/Vol] 138 mg/dL <201 [facility] Comment on above: Cholesterol level, D esirable <200 mg/dLBorderline high cholesterol 200-239 mg/dLHigh cholesterol >=240 mg/dLRecommendations of the NCEP Adult Treatment Panel for the following risk-cutoff thresholds for the [place] population. Serum or plasma urea nitroge n measurement (mass/volume)Ordered By: HEALTH ASSESSMENT on 10-21-2024 Urea nitrogen [Mass/Vol] 21 mg/dL High 4-19 [facility] Serum or plasma uric acid me asurement (mass/volume)Ordered By: [facility] ASSESSMENT on 10-21-2024 Urate [Mass/Vol] 8.8 mg/dL High 3.5-7.2 [facility] Comment on above: The drugs N-Acetylcy steine and Metamizole may falsely depress this assay. Sodium levelOrdered By: HEAL ASSESSMENT on 10-21-2024 Sodium [Moles/Vol] 138 mmol/L 133-145 [facility] Total proteinOrdered By: [facility] ASSESSMENT on 10-21-2024 Protein [Mass/Vol] 6.7 g/dL 5.9-8.4 [facility] Triglycerides measurementOrd ered By: HEALTH ASSESSMENT on 10-21-2024 Triglyceride [Mass/Vol] 106 mg/dL <199 [facility] Comment on above: The drugs N-Acetylcy steine and Metamizole may falsely depress this assay. Normal range: <150 mg/dLBorderline High: 150-199 mg/dLHigh: 200-499 mg/dLVery High: >500 mg/dL Urinalysis, Employeeon 10-21 Clarity (U) Clear Normal Clear [facility] Comment on above: Order Comment: Urine , Random Performed By: #### L 100.0200, L400.0100, L500.2900 #### [facility] [address] [place], [address] Color (U) Yellow Normal Yellow [facility] Comment on above: Order Comment: Urine , Random Performed By: #### L 100.0200, L400.0100, L500.2900 #### [facility] [address] [place], [address] BILIRUBIN URINE Negative Normal Negative [facility] Comment on above: Order Comment: Urine , Random Performed By: #### L 100.0200, L400.0100, L500.2900 #### [facility] [address] [place], [address] GLUCOSE, UR Normal Normal Normal [facility] Comment on above: Order Comment: Urine , Random Performed By: #### L 100.0200, L400.0100, L500.2900 #### [facility] [address] [place], [address] KETONE UR Negative Normal Negative [facility] Comment on above: Order Comment: Urine , Random Performed By: #### L 100.0200, L400.0100, L500.2900 #### [facility] [address] [place], [address] LEUK ESTERASE Negative Normal Negative [facility] Comment on above: Order Comment: Urine , Random Performed By: #### L 100.0200, L400.0100, L500.2900 #### [facility] [address] [place], [address] Nitrite Ql (U) Negative Normal Negative [facility] Comment on above: Order Comment: Urine , Random Performed By: #### L 100.0200, L400.0100, L500.2900 #### [facility] [address] [place], [address] OCCULT BLOOD-UR 10 /ul Abnormal Negative [facility] Comment on above: Order Comment: Urine , Random Performed By: #### L 100.0200, L400.0100, L500.2900 #### [facility] [address] [place], [address] pH UR 6.0 Normal 5.0 - 8.0 [facility] Comment on above: Order Comment: Urine , Random Performed By: #### L 100.0200, L400.0100, L500.2900 #### [facility] [address] [place], [address] PROT DIPSTX 15 mg/dl Abnormal Negative [facility] Comment on above: Order Comment: Urine , Random Performed By: #### L 100.0200, L400.0100, L500.2900 #### [facility] [address] [place], [address] SP.GR. DIPSTX 1.020 Normal 1.002-1.030 [facility] Comment on above: Order Comment: Urine , Random Performed By: #### L 100.0200, L400.0100, L500.2900 #### [facility] [address] [place], [address] UROBILI Normal Normal Normal [facility] Comment on above: Order Comment: Urine , Random Performed By: #### L 100.0200, L400.0100, L500.2900 #### [facility] [address] [place], [address] Urine clarityOrdered By: [facility] ASSESSMENT on 10-21-2024 Clarity (U) Clear Clear [facility] Urine color determinationOrd ered By: HEALTH ASSESSMENT on 10-21-2024 Color (U) Yellow Yellow [facility] Urine glucose detectionOrder ed By: HEALTH ASSESSMENT on 10-21-2024 Glucose Ql (U) Normal mg/dl Normal [facility] Urine leukocyte esterase det ection by dipstickOrdered By: HEALTH ASSESSMENT on 10-21-2024 Leukocyte esterase Test strip Ql (U) Negative Negative [facility] Urine pHOrdered By: HEALTH A SSESSMENT on 10-21-2024 pH (U) 6.0 [pH] 5.0 - 8.0 [facility] Urine specific gravity measu rementOrdered By: HEALTH ASSESSMENT on 10-21-2024 Specific gravity (U) [Rel density] 1.020 1.002-1.030 [facility] Urine urobilinogen measureme ntOrdered By: HEALTH ASSESSMENT on 10-21-2024 Urobilinogen Ql (U) Normal mg/dl Normal [facility] White blood cell (WBC) count Ordered By: HEALTH ASSESSMENT on 10-21-2024 WBC (Bld) [#/Vol] 8.2 10*3/uL 4.4-11.0 [facility] Cardiology Visit Reporton Cardiology Visit Report [facility] [address] [place] [address] OFFICE VISIT Date of Service: 10/20/24 MR#: [id number] Acct: [id number] Name: KAMALA BRASWELL JrOctavia Rep #: [id number] : 1970 Provider: FRANCISCO nunez Age/Sex: 54/M Location[place] [facility] [place] Status: Signed HPI HPI History of [...] 97 Intake Visit Reasons: 1 Y FU Machine Tech Required: No Is patient in pain?: No [...] Negative for (more content not included)... Normal [facility] Office Visit Reporton 2024 Office Visit Report [facility] [address] [place] [address] OFFICE VISIT Date of Service: 07/22/24 MR#: [id number] Acct: [id number] Patient: MICHAELLEKAMALA ADY Christiansen Rep #: [id number] : 1970 Provider: DI Mota Age/Sex: 54/M Location[place] [facility] [place] Status: Signed Employer Purchased Covid Test Note: Patient here today for Covid Testing, requested by their Employer. [facility] Billing Sheet Covid Covid Swab-Rapid: Yes 10/06/24 1137 Date Sylvain SEVILLA Cosigner Signature: Date (if applicable) CC: Normal [facility] - Microbiology an d Antimicrobial susceptibilityOrdered By: Sylvain Adler on 07-22-2024 SARS-CoV-2 (COVID-19) RNA RANDALL+probe Ql (Unsp spec) Not detected [facility] No Panel InformationOrdered By: Sylvain Adler on 07-22-2024 POC Nasal Swab Influenza A,B Not detected [facility] POC Nasal Swab RSV Not detected [facility] Office Visit Reporton 2024 Office Visit Report [facility] [address] [place] [address] OFFICE VISIT Date of Service: 07/22/24 MR#: [id number] Acct: [id number] Patient: MICHAELLEKAMALA Jr. Rep #: [id number] : 1970 Provider: DI Mota Age/Sex: 53/M Location: [facility] [place] Status: Signed Employer Purchased Covid Test Note: Patient here today for Covid Testing, requested by their Employer. Assessment and Plan Assessment and Plan Orders: Orders POC Cepheid Covid, FluAB, RSV Today 07/22/24 0842 Date Sylvain SEVILLA Cosigner Signature: Date (if applicable) CC: Normal [facility] Urgent Care Visit Reporton 0 07-22-2024 Urgent Care Visit Report [facility] [address], [address] [place] [address] OFFICE VISIT Date of Service: 07/22/24 MR#: [id number] Acct: [id number] Name: KAMALA BRASWELL Jr. Rep #: [id number] : 1970 Provider: DI Mota Age/Sex: 53/M Location: [facility] [place] Status: Signed Intake Vital Signs 10/23/23 08:24 07/22/24 08:06 Height 5 ft 9 in BP 138/82 H Blood Pressure Location Lt brachial Position Sitting Respiration 17 Pulse 71 Pulse Source NIBP Temp 98.3 F Temp Source Oral Pulse Oximetry (%) 97 Oxygen Delivery Method room air Intake Visit Reasons: COUGH, FEVER LAST NIGHT, SORE THROAT Chief Complaint: cough, congestion, fever, ST Machine Tech Required: No Is patient in pain?: No Allergies No Known Allergies Allergy (Verified 07/22/24 08:07) Have you fallen in the past year?: No Nurse's Note: cough, congestion, fever, ST x less than 24 hours. [facility] Medical History Hordeolum externum left lower [...] Cosigner Signature: Date (if applicable) CC: Normal [facility] L501.5101on 07-15-2024 GGTP 27 IU/L Normal 0-65 [facility] Comment on above: Order Comment: LIVER CMP TESTS [facility]-MCCONNELLOTHER TESTS-JUANA Result Comment: Perf ormed at: - [facility] [address] [id number] Valet Runner: Ruben Madison PhD, Phone: [phone] Performed By: #### L 500.4100, L501.5101, L100.0500, L500.4050, L501.9310, L501.4700, L501.9520 ####[facility] [address] [place], [place], [id number] Anion gap in Serum or Plasma Ordered By: Lyla Bernard on 07-14-2024 Anion gap [Moles/Vol] 12 mmol/L 5- [facility] BUN/creatinine ratioOrdered By: Lyla Bernard on 07-14-2024 Urea nitrogen/Creatinine [Mass ratio] 17.4 mg/mg 12-26 [facility] Bilirubin directOrdered By: Lyla Bernard on 07-14-2024 Bilirubin.direct [Mass/Vol] 0.19 mg/dL 0.00-0.30 [facility] Bilirubin, Directon 07-15-19 25 Bilirubin.direct [Mass/Vol] 0.19 mg/dL Normal 0.00-0.30 [facility] Comment on above: Order Comment: LIVER CMP TESTS OVERLAP-[facility]ED [facility] LIPID-MCCONNELLOTHER TESTS-JABOUR Performed By: #### L 500.4100, L501.5101, L100.0500, L500.4050, L501.9310, L501.4700, L501.9520 ####[facility] [address] [place], [place], [id number] Bilirubin, totalOrdered By: Lyla Bernard on 07-14-2024 Bilirubin [Mass/Vol] 0.49 mg/dL 0.00-1.30 [facility] CBC-Complete Blood Cnt No Di ffon 07-14-2024 Erythrocyte distribution width (RBC) [Ratio] 13.1 % Normal 11.6-14.6 [facility] Comment on above: Order Comment: LIVER CMP TESTS OVERLAP-ORDERED DBILLIVER LIPID-MCCONNELLOTHER TESTS-JABOUR Performed By: #### L 500.4100, L501.5101, L100.0500, L500.4050, L501.9310, L501.4700, L501.9520 ####[facility] [address] [place], [address] Hematocrit (Bld) [Volume fraction] 40.8 % Normal 40-54 [facility] Comment on above: Order Comment: LIVER CMP TESTS OVERLAP-[facility]ED [facility] LIPID-MCCONNELLOTHER TESTS-JABOUR Performed By: #### L 500.4100, L501.5101, L100.0500, L500.4050, L501.9310, L501.4700, L501.9520 ####[facility] [address] [place], [place], [phone] Hemoglobin (Bld) [Mass/Vol] 14.0 g/dL Normal 13.0-16.5 [facility] Comment on above: Order Comment: LIVER CMP TESTS OVERLAP-[facility]ED [facility] LIPID-MCCONNELLOTHER TESTS-JABOUR Performed By: #### L 500.4100, L501.5101, L100.0500, L500.4050, L501.9310, L501.4700, L501.9520 ####[facility] [address] [place], [address] MCH (RBC) [Entitic mass] 31.7 pg Normal 27.0-32.0 [facility] Comment on above: Order Comment: LIVER CMP TESTS OVERLAP-ORDERED DBILLIVER LIPID-MCCONNELLOTHER TESTS-JABOUR Performed By: #### L 500.4100, L501.5101, L100.0500, L500.4050, L501.9310, L501.4700, L501.9520 ####[facility] [address] [place], [address] MCHC (RBC) [Mass/Vol] 34.3 g/dL Normal 32-36 [facility] Comment on above: Order Comment: LIVER CMP TESTS OVERLAP-ORDERED DBILLIVER LIPID-MCCONNELLOTHER TESTS-JABOUR Performed By: #### L 500.4100, L501.5101, L100.0500, L500.4050, L501.9310, L501.4700, L501.9520 ####[facility] [address] [place], [address] MCV (RBC) [Entitic vol] 92.5 fL Normal 80-94 [facility] Comment on above: Order Comment: LIVER CMP TESTS OVERLAP-ORDERED DBILLIVER LIPID-MCCONNELLOTHER TESTS-JABOUR Performed By: #### L 500.4100, L501.5101, L100.0500, L500.4050, L501.9310, L501.4700, L501.9520 ####[facility] [address], [address] Platelet mean volume (Bld) [Entitic vol] 10.8 fL Normal 6.2-12.0 [facility] Comment on above: Order Comment: LIVER CMP TESTS OVERLAP-ORDERED DBILLIVER LIPID-MCCONNELLOTHER TESTS-JABOUR Performed By: #### L 500.4100, L501.5101, L100.0500, L500.4050, L501.9310, L501.4700, L501.9520 ####[facility] [address], [address] Platelets (Bld) [#/Vol] 268 10*3/uL Normal 150-450 [facility] Comment on above: Order Comment: LIVER CMP TESTS OVERLAP-ORDERED DBILLIVER LIPID-MCCONNELLOTHER TESTS-JABOUR Performed By: #### L 500.4100, L501.5101, L100.0500, L500.4050, L501.9310, L501.4700, L501.9520 ####[facility] [address] [place], [place], [phone] RBC (Bld) [#/Vol] 4.41 10*6/uL Low 4.6-6.2 [facility] Comment on above: Order Comment: LIVER CMP TESTS OVERLAP-ORDERED DBILLIVER LIPID-MCCONNELLOTHER TESTS-JABOUR Performed By: #### L 500.4100, L501.5101, L100.0500, L500.4050, L501.9310, L501.4700, L501.9520 ####[facility] [address] [place], [address] RDW SD 44.5 fl High 35.1-43.9 [facility] Comment on above: Order Comment: LIVER CMP TESTS OVERLAP-ORDERED DBILLIVER LIPID-MCCONNELLOTHER TESTS-JABOUR Performed By: #### L 500.4100, L501.5101, L100.0500, L500.4050, L501.9310, L501.4700, L501.9520 ####[facility] [address] [place], [place], [phone] WBC (Bld) [#/Vol] 10.2 10*3/uL Normal 4.4-11.0 [facility] Comment on above: Order Comment: LIVER CMP TESTS OVERLAP-ORDERED DBILLIVER LIPID-MCCONNELLOTHER TESTS-JABOUR Performed By: #### L 500.4100, L501.5101, L100.0500, L500.4050, L501.9310, L501.4700, L501.9520 ####[facility] [address] [place], [place], [phone] Calculated very low density lipoprotein (VLDL) cholesterol measurementOrdered By: Lyla Bernard on 05-08-2025 Calculated very low density lipoprotein (VLDL) cholesterol measurement 31 mg/dL 5-40 [facility] Carbon dioxide, total [Moles /volume] in Central venous bloodOrdered By: Lyla Bernard on 07-14-2024 CO2 [Moles/Vol] 23.0 mmol/L 21.0-32.0 [facility] Chloride assayOrdered By: Genie Bernard on 07-14-2024 Chloride [Moles/Vol] 103 mmol/L 98-108 [facility] Comprehensive Metabolic Prof ilon 07-14-2024 Albumin [Mass/Vol] 3.9 g/dL Normal 3.5-5.0 [facility] Comment on above: Order Comment: LIVER CMP TESTS [facility]LAP-[facility] LIPID-MCCONNELLOTHER TESTS-JABOUR Performed By: #### L 500.4100, L501.5101, L100.0500, L500.4050, L501.9310, L501.4700, L501.9520 ####[facility] [address] [place], [place], [id number] Albumin/Globulin [Mass ratio] 1.4 {ratio} Normal 0.9-2.4 [facility] Comment on above: Order Comment: LIVER CMP TESTS OVERLAP-ORDERED [facility] LIPID-MCCONNELLOTHER TESTS-MODESTOBOUR Performed By: #### L 500.4100, L501.5101, L100.0500, L500.4050, L501.9310, L501.4700, L501.9520 ####[facility] [address] [place], [place], [id number] ALK PHOS 102 U/L Normal 40-129 [facility] Comment on above: Order Comment: LIVER CMP TESTS OVERLAP-ORDERED [facility] LIPID-MCCONNELLOTHER TESTS-JABOUR Performed By: #### L 500.4100, L501.5101, L100.0500, L500.4050, L501.9310, L501.4700, L501.9520 ####[facility] [address] [place], [address] ALT [Catalytic activity/Vol] 29 U/L Normal <=46 [facility] Comment on above: Order Comment: LIVER CMP TESTS OVERLAP-ORDERED DBILLIVER LIPID-MCCONNELLOTHER TESTS-JABOUR Performed By: #### L 500.4100, L501.5101, L100.0500, L500.4050, L501.9310, L501.4700, L501.9520 ####[facility] [address] [place], [address] AST [Catalytic activity/Vol] 26 U/L Normal <=37 [facility] Comment on above: Order Comment: LIVER CMP TESTS OVERLAP-ORDERED DBILLIVER LIPID-MCCONNELLOTHER TESTS-JABOUR Performed By: #### L 500.4100, L501.5101, L100.0500, L500.4050, L501.9310, L501.4700, L501.9520 ####[facility] [address] [place], [address] Bilirubin [Mass/Vol] 0.49 mg/dL Normal 0.00-1.30 [facility] Comment on above: Order Comment: LIVER CMP TESTS [facility]LAP-[facility] LIPID-MCCONNELLOTHER TESTS-JABOUR Performed By: #### L 500.4100, L501.5101, L100.0500, L500.4050, L501.9310, L501.4700, L501.9520 ####[facility] [address] [place], [address] BUN/CRE 17.4 RATIO Normal 10-20 [facility] Comment on above: Order Comment: LIVER CMP TESTS OVERLAP-[facility]ED [facility] LIPID-MCCONNELLOTHER TESTS-JABOUR Performed By: #### L 500.4100, L501.5101, L100.0500, L500.4050, L501.9310, L501.4700, L501.9520 ####[facility] [address] [place], [address] Calcium [Mass/Vol] 8.9 mg/dL Normal 7.6-11.0 [facility] Comment on above: Order Comment: LIVER CMP TESTS OVERLAP-ORDERED DBILLIVER LIPID-MCCONNELLOTHER TESTS-JABOUR Performed By: #### L 500.4100, L501.5101, L100.0500, L500.4050, L501.9310, L501.4700, L501.9520 ####[facility] [address] [place], [address] Chloride [Moles/Vol] 103 mmol/L Normal 98-108 [facility] Comment on above: Order Comment: LIVER CMP TESTS OVERLAP-ORDERED DBILLIVER LIPID-MCCONNELLOTHER TESTS-JABOUR Performed By: #### L 500.4100, L501.5101, L100.0500, L500.4050, L501.9310, L501.4700, L501.9520 ####[facility] [address] [place], [place], [id number] CO2 [Moles/Vol] 23.0 mmol/L Normal 21.0-32.0 [facility] Comment on above: Order Comment: LIVER CMP TESTS OVERLAP-[facility] LIPID-MCCONNELLOTHER TESTS-JABOUR Performed By: #### L 500.4100, L501.5101, L100.0500, L500.4050, L501.9310, L501.4700, L501.9520 ####[facility] [address] [place], [address] Creatinine [Mass/Vol] 1.14 mg/dL Normal 0.70-1.20 [facility] Comment on above: Order Comment: LIVER CMP TESTS OVERLAP-ORDERED DBILLIVER LIPID-MCCONNELLOTHER TESTS-JABOUR Performed By: #### L 500.4100, L501.5101, L100.0500, L500.4050, L501.9310, L501.4700, L501.9520 ####[facility] [address] [place], [address] GAP 12 Normal 5-15 [facility] Comment on above: Order Comment: LIVER CMP TESTS OVERLAP-ORDERED DBILLIVER LIPID-MCCONNELLOTHER TESTS-JABOUR Performed By: #### L 500.4100, L501.5101, L100.0500, L500.4050, L501.9310, L501.4700, L501.9520 ####[facility] [address] [place], [place], [id number] GFR/1.73 sq M.predicted among non-blacks MDRD (S/P/Bld) [Vol rate/Area] 76 mL/min/{1.73_m2} Normal >60 [facility] Comment on above: Order Comment: LIVER CMP TESTS OVERLAP-ORDERED DBILLIVER LIPID-MCCONNELLOTHER TESTS-JABOUR Result Comment: mL/m in/1.73m2 CKD-EPI Creatinine Equation (2020) Performed By: #### L 500.4100, L501.5101, L100.0500, L500.4050, L501.9310, L501.4700, L501.9520 ####[facility] [address] [place], [place], [id number] Globulin (S) [Mass/Vol] 2.8 g/dL Normal 2.2-4.2 [facility] Comment on above: Order Comment: LIVER CMP TESTS OVERLAP-ORDERED DBILLIVER LIPID-MCCONNELLOTHER TESTS-JABOUR Performed By: #### L 500.4100, L501.5101, L100.0500, L500.4050, L501.9310, L501.4700, L501.9520 ####[facility] [id number] [place], [address] Glucose [Mass/Vol] 101 mg/dL High 70-99 [facility] Comment on above: Order Comment: LIVER CMP TESTS OVERLAP-ORDERED DBILLIVER LIPID-MCCONNELLOTHER TESTS-JABOUR Performed By: #### L 500.4100, L501.5101, L100.0500, L500.4050, L501.9310, L501.4700, L501.9520 ####[facility] [id number] [place], [address] Potassium [Moles/Vol] 4.5 mmol/L Normal 3.3-5.1 [facility] Comment on above: Order Comment: LIVER CMP TESTS OVERLAP-ORDERED DBILLIVER LIPID-MCCONNELLOTHER TESTS-JABOUR Performed By: #### L 500.4100, L501.5101, L100.0500, L500.4050, L501.9310, L501.4700, L501.9520 ####[facility] [address] [place], [address] Sodium [Moles/Vol] 138 mmol/L Normal 133-145 [facility] Comment on above: Order Comment: LIVER CMP [facility]S [facility]LLOTHER TESTS-JABOUR Performed By: #### L 500.4100, L501.5101, L100.0500, L500.4050, L501.9310, L501.4700, L501.9520 ####[facility] [address] [place], [address] T PROT 6.7 g/dL Normal 5.9-8.4 [facility] Comment on above: Order Comment: LIVER CMP TESTS [facility]LAP[facility] LIPID-MCCONNELLOTHER TESTS-JABOUR Performed By: #### L 500.4100, L501.5101, L100.0500, L500.4050, L501.9310, L501.4700, L501.9520 ####[facility] [address] [place], [address] Urea nitrogen [Mass/Vol] 20 mg/dL High 4-19 [facility] Comment on above: Order Comment: LIVER CMP TESTS OVERLAP-ORDERED DBILLIVER LIPID-MCCONNELLOTHER TESTS-JABOUR Performed By: #### L 500.4100, L501.5101, L100.0500, L500.4050, L501.9310, L501.4700, L501.9520 ####[facility] [address] [place], [address] Erythrocyte distribution wid th ratioOrdered By: Lyla Bernard on 07-14-2024 Erythrocyte distribution width (RBC) [Ratio] 13.1 % 11.6-14.6 [facility] Erythrocyte distribution wid th standard deviationOrdered By: Lyla Bernard on 07-14-2024 Erythrocyte distribution width (RBC) [Ratio] 44.5 fl High 35.1-43.9 [facility] Gamma glutamyl transferase ( GGT) measurementOrdered By: Lyla Bernard on 07-14-2024 Amylase [Catalytic activity/Vol] 27 U/L 0-65 [facility] Comment on above: Performed at: [facility] [employer] [place] [id number] Director: Ruben Madison PhD, Phone: [phone] Glomerular filtration rate ( GFR) estimation/1.73 sq m using serum, plasma, or whole bOrdered By: Lyla Bernard on 07-14-2024 GFR/1.73 sq M.predicted among non-blacks MDRD (S/P/Bld) [Vol rate/Area] 76 mL/min/{1.73_m2} >60 [facility] Comment on above: mL/min/1.73m2 CKD-EP I Creatinine Equation (2020) Hematocrit Auto (Bld) [Volum e fraction]Ordered By: Lyla Bernard on 07-14-2024 Hematocrit (Bld) [Volume fraction] 40.8 % 40-54 [facility] Hemoglobin measurementOrdere d By: Lyla Bernard on 07-14-2024 Hemoglobin (Bld) [Mass/Vol] 14.0 g/dL 13.0-16.5 [facility] LDL calc ser/plasOrdered By: Lyla Bernard on 07-14-2024 Cholesterol in LDL [Mass/Vol] 88 mg/dL [facility] Comment on above: Pkwpatkswz=376-346 m g/dL & Higher Anwi=780 mg/dL or greater Laboratory - Chemistry and C hemistry - challengeOrdered By: Lyla Bernard on 07-14-2024 AST [Catalytic activity/Vol] 26 U/L <38 [facility] Lipid Profileon 07-14-2024 CHOL:HDL 4.92 Normal [facility] Comment on above: Order Comment: LIVER CMP TESTS OVERLAP-ORDERED DBILLIVER LIPID-MCCONNELLOTHER TESTS-JABOUR Performed By: #### L 500.4100, L501.5101, L100.0500, L500.4050, L501.9310, L501.4700, L501.9520 ####[facility] [address] [place], [place], [id number] Cholesterol [Mass/Vol] 149 mg/dL Normal <=200 [facility] Comment on above: Order Comment: LIVER CMP TESTS [facility]LAP[facility] LIPID-MCCONNELLOTHER TESTS-JABOUR Result Comment: Chol esterol level, Desirable <200 mg/dL Borderline high cholesterol 200-239 mg/dL High cholesterol >=240 mg/dL Recommendations of the NCEP Adult Treatment Panel for the following risk-cutoff thresholds for the [place] population. Performed By: #### L 500.4100, L501.5101, L100.0500, L500.4050, L501.9310, L501.4700, L501.9520 ####[facility] [address] [place], [address] Cholesterol in HDL [Mass/Vol] 30 mg/dL Low [facility] Comment on above: Order Comment: LIVER CMP TESTS [facility]LAP[facility] LIPID-MCCONNELLOTHER TESTS-JABOUR Result Comment: Maira onal Cholesterol Education Program (NCEP) guidelines: <40 mg/dL: Low HDL-cholesterol (major risk factor for CHD) >= 60 mg/dL: High HDL-cholesterol (negative risk factor for CHD) HDL-cholesterol is affected by a number of factors, e.g. smoking, exercise, hormones, sex and age. Performed By: #### L 500.4100, L501.5101, L100.0500, L500.4050, L501.9310, L501.4700, L501.9520 ####[facility] [address] [place], [address] Cholesterol in LDL [Mass/Vol] 88 mg/dL Normal [facility] Comment on above: Order Comment: LIVER CMP TESTS OVERLAP-ORDERED DBILLIVER LIPID-MCCONNELLOTHER TESTS-JABOUR Result Comment: Bord kmdyqn=275-870 mg/dL Higher Uqhn=010 mg/dL or greater Performed By: #### L 500.4100, L501.5101, L100.0500, L500.4050, L501.9310, L501.4700, L501.9520 ####[facility] [address] [place], [address] Cholesterol in VLDL [Mass/Vol] 31 mg/dL Normal 5-40 [facility] Comment on above: Order Comment: LIVER CMP TESTS OVERLAP-ORDERED DBILLIVER LIPID-MCCONNELLOTHER TESTS-JABOUR Performed By: #### L 500.4100, L501.5101, L100.0500, L500.4050, L501.9310, L501.4700, L501.9520 ####[facility] [address] [place], [address] Triglyceride [Mass/Vol] 153 mg/dL Normal [facility] Comment on above: Order Comment: LIVER CMP TESTS OVERLAP-ORDERED DBILLIVER LIPID-MCCONNELLOTHER TESTS-JABOUR Result Comment: The drugs N-Acetylcysteine and Metamizole may falsely depress this assay. Normal range: <150 mg/dL Borderline High: 150-199 mg/dL High: 200-499 mg/dL Very High: >500 mg/dL Performed By: #### L 500.4100, L501.5101, L100.0500, L500.4050, L501.9310, L501.4700, L501.9520 ####[facility] [address] [place], [address] MCV (mean corpuscular volume ) determinationOrdered By: Lyla Bernard on 07-14-2024 MCV (RBC) [Entitic vol] 92.5 fL 80-94 [facility] Mean corpuscular hemoglobin (MCH) determinationOrdered By: Lyla Bernard on 07-14-2024 MCH (RBC) [Entitic mass] 31.7 pg 27.0-32.0 [facility] Mean corpuscular hemoglobin concentration (MCHC) determinationOrdered By: Lyla Bernard on 07-14-2024 MCHC (RBC) [Mass/Vol] 34.3 g/dL 32-36 [facility] Mean platelet volume determi nationOrdered By: Lyla Bernard on 07-14-2024 Platelet mean volume (Bld) [Entitic vol] 10.8 fL 6.2-12.0 [facility] Platelet countOrdered By: Genie Bernard on 07-14-2024 Platelets (Bld) [#/Vol] 268 10*3/uL 150-450 [facility] Potassium measurement (mass/ volume)Ordered By: Lyla Bernard on 07-14-2024 Potassium (Unsp spec) [Mass/Vol] 4.5 mmol/L 3.3-5.1 [facility] RBC Auto (Bld) [#/Vol]Ordere d By: Lyla Bernard on 07-14-2024 RBC (Bld) [#/Vol] 4.41 10*6/uL Low 4.6-6.2 [facility] Screening total cholesterol/ high density lipoprotein (HDL) cholesterol ratioOrdered By: Lyla Bernard on 07-14-2024 Cholesterol.total/Choles terol in HDL [Mass ratio] 4.92 {ratio} [facility] Serum creatinine measurement (mass/volume)Ordered By: Lyla Bernard on 07-14-2024 Creatinine [Mass/Vol] 1.14 mg/dL 0.70-1.20 [facility] Serum globulin measurementOr dered By: Lyla Bernard on 07-14-2024 Globulin (S) [Mass/Vol] 2.8 g/dL 2.2-4.2 [facility] Serum glucose measurement (m ass/volume)Ordered By: Lyla Bernard on 07-14-2024 Glucose [Mass/Vol] 101 mg/dL High 70-99 [facility] Serum or plasma alanine aguilera otransferase (ALT) measurementOrdered By: Lyla Bernard on 07-14-2024 ALT [Catalytic activity/Vol] 29 U/L <47 [facility] Serum or plasma albumin danica urement (mass/volume)Ordered By: Lyla Bernard on 07-14-2024 Albumin [Mass/Vol] 3.9 g/dL 3.5-5.0 [facility] Serum or plasma albumin/glob ulin mass ratioOrdered By: Lyla Bernard on 07-14-2024 Albumin/Globulin [Mass ratio] 1.4 {ratio} 0.9-2.4 [facility] Serum or plasma alkaline medina sphatase measurementOrdered By: Lyla Bernard on 07-14-2024 ALP [Catalytic activity/Vol] 102 U/L 40-129 [facility] Serum or plasma calcium danica urement (mass/volume)Ordered By: Lyla Bernard on 07-14-2024 Calcium [Mass/Vol] 8.9 mg/dL 7.6-11.0 [facility] Serum or plasma cholesterol in HDL measurement (mass/volume)Ordered By: Lyla Bernard on 07-14-2024 Cholesterol in HDL [Mass/Vol] 30 mg/dL Low >40 [facility] Comment on above: National Cholesterol Education Program (NCEP) guidelines:<40 mg/dL: Low HDL-cholesterol (major risk factor for CHD)>= 60 mg/dL: High HDL-cholesterol (negative risk factor for CHD)HDL-cholesterol is affected by a number of factors, e.g. smoking, exercise, hormones, sex and age. Serum or plasma cholesterol measurement (mass/volume)Ordered By: Lyla Bernard on 07-14-2024 Cholesterol [Mass/Vol] 149 mg/dL <201 [facility] Comment on above: Cholesterol level, D esirable <200 mg/dLBorderline high cholesterol 200-239 mg/dLHigh cholesterol >=240 mg/dLRecommendations of the NCEP Adult Treatment Panel for the following risk-cutoff thresholds for the [place] population. Serum or plasma urea nitroge n measurement (mass/volume)Ordered By: Lyla Bernard on 07-14-2024 Urea nitrogen [Mass/Vol] 20 mg/dL High 4-19 [facility] Sodium levelOrdered By: Ishan Bernard on 07-14-2024 Sodium [Moles/Vol] 138 mmol/L 133-145 [facility] T4 Total, Thyroxinon T4 [Mass/Vol] 6.6 ug/dL Normal 4.5-12.1 [facility] Comment on above: Order Comment: LIVER CMP TESTS OVERLAP-[facility] LIPID-MCCONNELLOTHER TESTS-BOUR Performed By: #### L 500.4100, L501.5101, L100.0500, L500.4050, L501.9310, L501.4700, L501.9520 ####[facility] [address] [place], [place], [id number] TSH DL <= 0.005 mIU/L QnOrde red By: Lyla Bernard on 07-14-2024 TSH Qn 1.720 uIU/mL 0.300-4.200 [facility] Thyroid Stim Hormone (TSH)on 07-14-2024 TSH 1.720 uIU/mL Normal 0.300-4.200 [facility] Comment on above: Order Comment: LIVER CMP TESTS OVERLAP-ORDERED [facility] LIPID-MCCONNELLOTHER TESTS-BOUR Performed By: #### L 500.4100, L501.5101, L100.0500, L500.4050, L501.9310, L501.4700, L501.9520 ####[facility] [address] [place], [place], [id number] ThyroxineOrdered By: Bettie Bernard on 07-14-2024 T4 [Mass/Vol] 6.6 ug/dL 4.5-12.1 [facility] Total proteinOrdered By: Christopher Bernard on 07-14-2024 Protein [Mass/Vol] 6.7 g/dL 5.9-8.4 [facility] Triglycerides measurementOrd ered By: Lyla Bernard on 07-14-2024 Triglyceride [Mass/Vol] 153 mg/dL <199 [facility] Comment on above: The drugs N-Acetylcy steine and Metamizole may falsely depress this assay. Normal range: <150 mg/dLBorderline High: 150-199 mg/dLHigh: 200-499 mg/dLVery High: >500 mg/dL White blood cell (WBC) count Ordered By: Lyla Bernard on 07-14-2024 WBC (Bld) [#/Vol] 10.2 10*3/uL 4.4-11.0 [facility] Basophil percentageOrdered B y: Jere Zhu on 06-23-2023 Basophil percentage 0 SEEN /hpf 0-5 [facility] Bilirubin Test strip Ql (U)O rdered By: Jere Zhu on 06-23-2023 Bilirubin Ql (U) Negative Negative [facility] Ketones Test strip Ql (U)Ord ered By: Jere Zhu on 06-23-2023 Ketones Ql (U) Negative Negative [facility] Mucus LM Ql (Urine sed)Order ed By: Jere Zhu on 06-23-2023 Mucus Ql (Urine sed) 0 SEEN /hpf [facility] Nitrite Test strip Ql (U)Ord ered By: Jere Zhu on 06-23-2023 Nitrite Ql (U) Negative Negative [facility] No Panel InformationOrdered By: Jere Zhu on 06-23-2023 Urine RBC 0 SEEN /hpf 0-5 [facility] Protein Test strip Ql (U)Ord ered By: Jere Zhu on 06-23-2023 Protein Ql (U) Negative Negative [facility] Squamous epithelial cells de tection in urine sediment by light microscopyOrdered By: Jere Zhu on 06-23-2023 Epithelial cells.squamous LM Ql (Urine sed) 0 SEEN /hpf 0-5 [facility] Urine blood detectionOrdered By: Jere Zhu on 06-23-2023 RBC Ql (U) Negative Negative [facility] Urine clarityOrdered By: Kashif Zhu on 06-23-2023 Clarity (U) Clear Clear [facility] Urine color determinationOrd ered By: Jere Zhu on 06-23-2023 Color (U) Yellow Yellow [facility] Urine glucose detectionOrder ed By: Jere Zhu on 06-23-2023 Glucose Ql (U) Normal mg/dl Normal [facility] Urine leukocyte esterase det ection by dipstickOrdered By: Jere Zhu on 06-23-2023 Leukocyte esterase Test strip Ql (U) Negative Negative [facility] Urine pHOrdered By: Jere fish on 06-23-2023 pH (U) 7.0 [pH] 5.0 - 8.0 [facility] Urine sediment bacteria coun t by microscopy (number/high power field)Ordered By: Jere Zhu on 06-23-2023 Bacteria LM.HPF (Urine sed) [#/Area] 0 /[HPF] None Seen [facility] Urine specific gravity measu rementOrdered By: Jere Zhu on 06-23-2023 Specific gravity (U) [Rel density] 1.005 1.002-1.030 [facility] Urine urobilinogen measureme ntOrdered By: Jere Zhu on 06-23-2023 Urobilinogen Ql (U) Normal mg/dl Normal [facility] Basophil percentageOrdered B y: Marilyn Gordon on 05-09-2023 Basophil percentage < 10.0 IU/mL <15 [facility] No Panel InformationOrdered By: Marilyn Gordon on 05-09-2023 Anti-Nuclear Antibody Screen Negative Negative [facility] Comment on above: Performed at: [place] [id number] Director: Ruben Madison PhD, Phone: [phone] Basophil percentageOrdered B y: [place] on 04-29-2023 Bilirubin [Mass/Vol] 0.50 mg/dL 0.20-1.00 [facility] Comment on above: For patients on eltr ombopag therapy, use of Dimension [place] TBIL is not recommended. Chloride [Moles/Vol] 108 mmol/L 98-107 [facility] Cholesterol [Mass/Vol] 134 mg/dL <200 [facility] Comment on above: <200 mg/dL Desirable 200-240 mg/dL Borderline >240 mg/dL High Risk Glucose [Mass/Vol] 107 mg/dL 74-106 [facility] Comment on above: Fasting Glucose resu lt from 100 to 125 mg/dL suggests IMPAIRED HOMEOSTASIS per A.D.A. criteria. Potassium [Moles/Vol] 3.9 mmol/L 3.5-5.1 [facility] Protein [Mass/Vol] 6.9 g/dL 6.4-8.2 [facility] Sodium [Moles/Vol] 138 mmol/L 136-145 [facility] Triglyceride [Mass/Vol] 115 mg/dL <199 [facility] Comment on above: The drugs N-Acetylcy steine and Metamizole may falsely depress this assay.Serum Triglycerides Reference Interval Normal <150 mg/dL Borderline high 150 - 199 mg/dL High 200 - 499 mg/dL Very High > or = 500 mg/dL Laboratory - Chemistry and C hemistry - challengeOrdered By: [place] on 04-29-2023 Albumin/Globulin [Mass ratio] 1.0 {ratio} 0.9-2.4 [facility] ALP [Catalytic activity/Vol] 108 U/L 45-117 [facility] ALT [Catalytic activity/Vol] 36 U/L 16-61 [facility] Cholesterol in HDL [Mass/Vol] 39 mg/dL >40 [facility] Comment on above: The drugs N-Acetylcy steine and Metamizole may falsely depress this assay. Reference Range HDL <40 mg/dL Low HDL Cholesterol HDL >or= 60 mg/dL High HDL Cholesterol Cholesterol in LDL [Mass/Vol] 72 mg/dL 0-130 [facility] CO2 [Moles/Vol] 25.0 mmol/L 21.0-32.0 [facility] Globulin (S) [Mass/Vol] 3.5 g/dL 2.2-4.2 [facility] Urea nitrogen/Creatinine [Mass ratio] 15.5 mg/mg 10-20 [facility] No Panel InformationOrdered By: [place] on 04-29-2023 Urine Microalbumin/Creatinine Ratio 6.4 mg/g CRE <30 [facility] Estimated GFR (MDRD) Amer 90 mL/min >60 [facility] Comment on above: GFR Calc Estimated GFR (MDRD) Non-Af Amer 74 mL/min >60 [facility] Comment on above: Non- GFR Calc Prostate Specific Antigen Screen 0.77 ng/mL 0.00-4.00 [facility] Comment on above: This test was perfor med using the TPSA assay method for [employer] chemistry system. Values obtained with differentassay methods cannot be used interchangably.When changing PSA assays in the course of monitoring apatient, additional sequential testing should be carriedout to confirm baseline values. VLDL Cholesterol 23 mg/dL 5-40 [facility] Serum or plasma calcium danica urement (mass/volume)Ordered By: [place] on 04-29-2023 Calcium [Mass/Vol] 8.6 mg/dL 8.5-10.1 [facility] Serum or plasma creatinine m easurement (mass/volume)Ordered By: [place] on 04-29-2023 Creatinine [Mass/Vol] 1.10 mg/dL 0.70-1.30 [facility] Comment on above: The validity of the calculated GFR & GFRAA in patients over 70 years has not been determined. Clinical correlation is essential. Serum or plasma urea nitroge n measurement (mass/volume)Ordered By: [place] on 04-29-2023 Urea nitrogen [Mass/Vol] 17 mg/dL 7-18 [facility] Thin prep Papanicolaou smear with manual screeningOrdered By: [place] on 04-29-2023 Thin prep Papanicolaou smear with manual screening 5.3 mg/L NO RANGE EST. [facility] Thin prep Papanicolaou smear with manual screening 3.4 g/dL 3.2-5.0 [facility] Thin prep Papanicolaou smear with manual screening 20 U/L 15-37 [facility] Thin prep Papanicolaou smear with manual screening 5 5-15 [facility] Urine creatinine measurement (mass/volume)Ordered By: [place] on 04-29-2023 Creatinine (U) [Mass/Vol] 82.00 mg/dL NO RANGE EST. [facility] Whole blood hemoglobin A1c/t otal hemoglobin ratio (mass fraction)Ordered By: [place] on 04-29-2023 HbA1c (Bld) [Mass fraction] 5.9 % 3.8-5.6 [facility] Comment on above: Normal < 5.7 % Predi abetic 5.7 - 6.4 % Diabetic >or= 6.5 % Please note range changes. Basophil percentageOrdered B y: Marilyn Gordon on 09-17-2022 Bilirubin [Mass/Vol] 0.60 mg/dL 0.20-1.00 [facility] Comment on above: For patients on eltr ombopag therapy, use of [place] TBIL is not recommended. Chloride [Moles/Vol] 104 mmol/L 98-107 [facility] Cholesterol [Mass/Vol] 138 mg/dL <200 [facility] Comment on above: <200 mg/dL Desirable 200-240 mg/dL Borderline >240 mg/dL High Risk Glucose [Mass/Vol] 104 mg/dL 74-106 [facility] Comment on above: Fasting Glucose resu lt from 100 to 125 mg/dL suggests IMPAIRED HOMEOSTASIS per A.D.A. criteria. Potassium [Moles/Vol] 4.5 mmol/L 3.5-5.1 [facility] Comment on above: Moderate Hemolysis, Result may be falsely increased. Protein [Mass/Vol] 7.2 g/dL 6.4-8.2 [facility] Sodium [Moles/Vol] 136 mmol/L 136-145 [facility] Triglyceride [Mass/Vol] 221 mg/dL <199 [facility] Comment on above: The drugs N-Acetylcy steine and Metamizole may falsely depress this assay.Serum Triglycerides Reference Interval Normal <150 mg/dL Borderline high 150 - 199 mg/dL High 200 - 499 mg/dL Very High > or = 500 mg/dL Laboratory - Chemistry and C hemistry - challengeOrdered By: Marilyn Gordon on 09-17-2022 ALP [Catalytic activity/Vol] 105 U/L 45-117 [facility] ALT [Catalytic activity/Vol] 40 U/L 16-61 [facility] CO2 [Moles/Vol] 29.0 mmol/L 21.0-32.0 [facility] Globulin (S) [Mass/Vol] 4.0 g/dL 2.2-4.2 [facility] Urea nitrogen/Creatinine [Mass ratio] 12.3 mg/mg 10-20 [facility] No Panel InformationOrdered By: Marilyn Gordon on 09-17-2022 Estimated GFR (MDRD) Amer 86 mL/min >60 [facility] Comment on above: GFR Calc Estimated GFR (MDRD) Non-Af Amer 71 mL/min >60 [facility] Comment on above: Non- GFR Calc Serum or plasma albumin danica urement (mass/volume)Ordered By: Marilyn Gordon on 09-17-2022 Albumin [Mass/Vol] 3.2 g/dL 3.2-5.0 [facility] Serum or plasma albumin/glob ulin mass ratioOrdered By: Marilyn Gordon on 09-17-2022 Albumin/Globulin [Mass ratio] 0.8 {ratio} 0.9-2.4 [facility] Serum or plasma calcium danica urement (mass/volume)Ordered By: Marilyn Gordon on 09-17-2022 Calcium [Mass/Vol] 8.5 mg/dL 8.5-10.1 [facility] Serum or plasma cholesterol in HDL measurement (mass/volume)Ordered By: Marilyn Gordon on 09-17-2022 Cholesterol in HDL [Mass/Vol] 37 mg/dL >40 [facility] Comment on above: The drugs N-Acetylcy steine and Metamizole may falsely depress this assay. Reference Range HDL <40 mg/dL Low HDL Cholesterol HDL >or= 60 mg/dL High HDL Cholesterol Serum or plasma cholesterol in VLDL measurement (mass/volume)Ordered By: Marilyn Gordon on 09-17-2022 Cholesterol in VLDL [Mass/Vol] 44 mg/dL 5-40 [facility] Serum or plasma creatinine m easurement (mass/volume)Ordered By: Marilyn Gordon on 09-17-2022 Creatinine [Mass/Vol] 1.14 mg/dL 0.70-1.30 [facility] Comment on above: The validity of the calculated GFR & GFRAA in patients over 70 years has not been determined. Clinical correlation is essential. Serum or plasma low density lipoprotein (LDL) cholesterol measurement (mass/volume)Ordered By: Marilyn Gordon on 09-17-2022 Cholesterol in LDL [Mass/Vol] 57 mg/dL 0-130 [facility] Serum or plasma urea nitroge n measurement (mass/volume)Ordered By: Marilyn Gordon on 09-17-2022 Urea nitrogen [Mass/Vol] 14 mg/dL 7-18 [facility] Thin prep Papanicolaou smear with manual screeningOrdered By: Marilyn Gordon on 09-17-2022 Thin prep Papanicolaou smear with manual screening 49 U/L 15-37 [facility] Comment on above: Moderate Hemolysis, Result may be falsely increased. Thin prep Papanicolaou smear with manual screening 3 5-15 [facility] Thin prep Papanicolaou smear with manual screening < 5.0 mg/L NO RANGE EST. [facility] Whole blood hemoglobin A1c/t otal hemoglobin ratio (mass fraction)Ordered By: Marilyn Gordon on 09-17-2022 HbA1c (Bld) [Mass fraction] 5.7 % 3.8-5.6 [facility] Comment on above: Normal < 5.7 % Predi abetic 5.7 - 6.4 % Diabetic >or= 6.5 % Please note range changes. Basophil percentageOrdered B y: Marilyn Gordon on 05-08-2022 Bilirubin [Mass/Vol] 0.50 mg/dL 0.20-1.00 [facility] Comment on above: For patients on eltr ombopag therapy, use of [place] TBIL is not recommended. Chloride [Moles/Vol] 104 mmol/L 98-107 [facility] Cholesterol [Mass/Vol] 180 mg/dL <200 [facility] Comment on above: <200 mg/dL Desirable 200-240 mg/dL Borderline >240 mg/dL High Risk Glucose [Mass/Vol] 112 mg/dL 74-106 [facility] Comment on above: Fasting Glucose resu lt from 100 to 125 mg/dL suggests IMPAIRED HOMEOSTASIS per A.D.A. criteria. Potassium [Moles/Vol] 4.2 mmol/L 3.5-5.1 [facility] Comment on above: Moderate Hemolysis, Result may be falsely increased. Protein [Mass/Vol] 7.5 g/dL 6.4-8.2 [facility] Sodium [Moles/Vol] 139 mmol/L 136-145 [facility] Triglyceride [Mass/Vol] 244 mg/dL <199 [facility] Comment on above: The drugs N-Acetylcy steine and Metamizole may falsely depress this assay.Serum Triglycerides Reference Interval Normal <150 mg/dL Borderline high 150 - 199 mg/dL High 200 - 499 mg/dL Very High > or = 500 mg/dL Laboratory - Chemistry and C hemistry - challengeOrdered By: Marilyn Gordon on 05-08-2022 ALP [Catalytic activity/Vol] 83 U/L 45-117 [facility] ALT [Catalytic activity/Vol] 50 U/L 16-61 [facility] CO2 [Moles/Vol] 28.0 mmol/L 21.0-32.0 [facility] Globulin (S) [Mass/Vol] 3.8 g/dL 2.2-4.2 [facility] Urea nitrogen/Creatinine [Mass ratio] 17.7 mg/mg 10-20 [facility] No Panel InformationOrdered By: Marilyn Gordon on 05-08-2022 Estimated GFR (MDRD) Amer 87 mL/min >60 [facility] Comment on above: GFR Calc Estimated GFR (MDRD) Non-Af Amer 72 mL/min >60 [facility] Comment on above: Non- GFR Calc Serum or plasma albumin danica urement (mass/volume)Ordered By: Marilyn Gordon on 05-08-2022 Albumin [Mass/Vol] 3.7 g/dL 3.2-5.0 [facility] Serum or plasma albumin/glob ulin mass ratioOrdered By: Marilyn Gordon on 05-08-2022 Albumin/Globulin [Mass ratio] 1.0 {ratio} 0.9-2.4 [facility] Serum or plasma calcium danica urement (mass/volume)Ordered By: Marilyn Gordon on 05-08-2022 Calcium [Mass/Vol] 9.1 mg/dL 8.5-10.1 [facility] Serum or plasma cholesterol in HDL measurement (mass/volume)Ordered By: Marilyn Gordon on 05-08-2022 Cholesterol in HDL [Mass/Vol] 38 mg/dL >40 [facility] Comment on above: The drugs N-Acetylcy steine and Metamizole may falsely depress this assay. Reference Range HDL <40 mg/dL Low HDL Cholesterol HDL >or= 60 mg/dL High HDL Cholesterol Serum or plasma cholesterol in VLDL measurement (mass/volume)Ordered By: Marilyn Gordon on 05-08-2022 Cholesterol in VLDL [Mass/Vol] 49 mg/dL 5-40 [facility] Serum or plasma creatinine m easurement (mass/volume)Ordered By: Marilyn Gordon on 05-08-2022 Creatinine [Mass/Vol] 1.13 mg/dL 0.70-1.30 [facility] Comment on above: The validity of the calculated GFR & GFRAA in patients over 70 years has not been determined. Clinical correlation is essential. Serum or plasma low density lipoprotein (LDL) cholesterol measurement (mass/volume)Ordered By: Marilyn Gordon on 05-08-2022 Cholesterol in LDL [Mass/Vol] 93 mg/dL 0-130 [facility] Serum or plasma urea nitroge n measurement (mass/volume)Ordered By: Marilyn Gordon on 05-08-2022 Urea nitrogen [Mass/Vol] 20 mg/dL 7-18 [facility] Thin prep Papanicolaou smear with manual screeningOrdered By: Marilyn Gordno on 05-08-2022 Thin prep Papanicolaou smear with manual screening 40 U/L 15-37 [facility] Comment on above: Moderate Hemolysis, Result may be falsely increased. Thin prep Papanicolaou smear with manual screening 7 5-15 [facility] Whole blood hemoglobin A1c/t otal hemoglobin ratio (mass fraction)Ordered By: Marilyn Gordon on 05-08-2022 HbA1c (Bld) [Mass fraction] 5.3 % 3.8-5.6 [facility] Comment on above: Normal < 5.7 % Predi abetic 5.7 - 6.4 % Diabetic >or= 6.5 % Please note range changes. Absolute lymphocyte countOrd ered By: Evelio Foss on 02-15-2022 Lymphocytes Auto (Unsp spec) [#/Vol] 2.02 10*3/uL 0.83-4.51 [facility] Basophil percentageOrdered B y: Evelio Foss on 02-15-2022 Basophils/100 WBC (Bld) 0.3 % 0-1 [facility] Chloride [Moles/Vol] 107 mmol/L 98-107 [facility] Eosinophils/100 WBC (Bld) 1.4 % 0-5 [facility] Glucose [Mass/Vol] 103 mg/dL 74-106 [facility] Comment on above: Fasting Glucose resu lt from 100 to 125 mg/dL suggests IMPAIRED HOMEOSTASIS per A.D.A. criteria. Neutrophils (Bld) [#/Vol] 6.2 10*3/uL 2.0-7.7 [facility] Neutrophils/100 WBC (Bld) 67.2 % 47-70 [facility] Potassium [Moles/Vol] 3.9 mmol/L 3.5-5.1 [facility] Sodium [Moles/Vol] 139 mmol/L 136-145 [facility] WBC (Bld) [#/Vol] 9.3 10*3/uL 4.4-11.0 [facility] Blood erythrocytes count (nu mber/volume)Ordered By: Evelio Foss on 02-15-2022 RBC (Bld) [#/Vol] 4.51 10*6/uL 4.6-6.2 [facility] Blood hemoglobin measurement (mass/volume)Ordered By: Evelio Foss on 02-15-2022 Hemoglobin (Bld) [Mass/Vol] 14.4 g/dL 13.0-16.5 [facility] Blood lymphocytes/100 leukoc ytesOrdered By: Evelio Foss on 02-15-2022 Lymphocytes/100 WBC (Bld) 21.8 % 19-41 [facility] Blood monocytes/100 leukocyt esOrdered By: Evelio Foss on 02-15-2022 Monocytes/100 WBC (Bld) 8.5 % 0-10 [facility] Blood platelet mean volumeOr dered By: Evelio Foss on 02-15-2022 Platelet mean volume (Bld) [Entitic vol] 11.2 fL 6.2-12.0 [facility] Determination of erythrocyte mean corpuscular volume (MCV)Ordered By: Evelio Fsos on 02-15-2022 MCV (RBC) [Entitic vol] 95.1 fL 80-94 [facility] Hematocrit Auto (Bld) [Volum e fraction]Ordered By: Evelio Foss on 02-15-2022 Hematocrit (Bld) [Volume fraction] 42.9 % 40-54 [facility] Laboratory - Chemistry and C hemistry - challengeOrdered By: Evelio Foss on 02-15-2022 CO2 [Moles/Vol] 28.0 mmol/L 21.0-32.0 [facility] Urea nitrogen/Creatinine [Mass ratio] 12.4 mg/mg 10-20 [facility] Laboratory - Hematology and Cell countsOrdered By: Evelio Foss on 02-15-2022 Erythrocyte distribution width (RBC) [Entitic vol] 46.5 fL 35.1-43.9 [facility] Erythrocyte distribution width (RBC) [Ratio] 13.4 % 11.6-14.6 [facility] Immature granulocytes/100 WBC (Bld) 0.800 % 0.0-0.9 [facility] Comment on above: IG% - Immature Granu locytes (promyelocytes, myelocytes and metamyelocytes) > 1% indicates that a LEFT SHIFT is Present. MCH (RBC) [Entitic mass] 31.9 pg 27.0-32.0 [facility] Nucleated RBC/100 WBC (Bld) [Ratio] 0 % 0-5 [facility] MCHC Auto (RBC) [Mass/Vol]Or dered By: Evelio Foss on 02-15-2022 MCHC (RBC) [Mass/Vol] 33.6 g/dL 32-36 [facility] No Panel InformationOrdered By: Evelio Foss on 02-15-2022 Estimated GFR (MDRD) Amer 88 mL/min >60 [facility] Comment on above: GFR Calc Estimated GFR (MDRD) Non-Af Amer 72 mL/min >60 [facility] Comment on above: Non- GFR Calc Platelets bldOrdered By: Feliz Foss on 02-15-2022 Platelets (Bld) [#/Vol] 238 10*3/uL 150-450 [facility] Serum or plasma calcium danica urement (mass/volume)Ordered By: Evelio Foss on 02-15-2022 Calcium [Mass/Vol] 9.2 mg/dL 8.5-10.1 [facility] Serum or plasma creatinine m easurement (mass/volume)Ordered By: Evelio Foss on 02-15-2022 Creatinine [Mass/Vol] 1.13 mg/dL 0.70-1.30 [facility] Comment on above: The validity of the calculated GFR & GFRAA in patients over 70 years has not been determined. Clinical correlation is essential. Serum or plasma urea nitroge n measurement (mass/volume)Ordered By: Evelio Foss on 02-15-2022 Urea nitrogen [Mass/Vol] 14 mg/dL 7-18 [facility] Thin prep Papanicolaou smear with manual screeningOrdered By: Evelio Foss on 02-15-2022 Thin prep Papanicolaou smear with manual screening 4 5-15 [facility] Laboratory - Microbiology an d Antimicrobial susceptibilityon 11-08-2021 SARS-CoV-2 (COVID-19) RNA RANDALL+probe Ql (Unsp spec) Not detected [facility] Work Phone: Basophil percentageon 2021 Bilirubin [Mass/Vol] 0.40 mg/dL 0.20-1.00 [facility] Work Phone: Comment on above: For patients on eltr ombopag therapy, use of Dimension [place] TBIL is not recommended. Chloride [Moles/Vol] 106 mmol/L 98-107 [facility] Work Phone: Cholesterol [Mass/Vol] 212 mg/dL <200 [facility] Work Phone: Comment on above: <200 mg/dL Desirable 200-240 mg/dL Borderline >240 mg/dL High Risk Glucose [Mass/Vol] 98 mg/dL 74-106 [facility] Work Phone: Potassium [Moles/Vol] 4.2 mmol/L 3.5-5.1 [facility] Work Phone: Protein [Mass/Vol] 7.6 g/dL 6.4-8.2 [facility] Work Phone: Sodium [Moles/Vol] 139 mmol/L 136-145 [facility] Work Phone: Triglyceride [Mass/Vol] 150 mg/dL <199 [facility] Work Phone: Comment on above: The drugs N-Acetylcy steine and Metamizole may falsely depress this assay.Serum Triglycerides Reference Interval Normal <150 mg/dL Borderline high 150 - 199 mg/dL High 200 - 499 mg/dL Very High > or = 500 mg/dL Laboratory - Chemistry and C hemistry - challengeon 10-22-2021 ALP [Catalytic activity/Vol] 77 U/L 45-117 [facility] Work Phone: ALT [Catalytic activity/Vol] 40 U/L 16-61 [facility] Work Phone: CO2 [Moles/Vol] 28.0 mmol/L 21.0-32.0 [facility] Work Phone: Globulin (S) [Mass/Vol] 4.1 g/dL 2.2-4.2 [facility] Work Phone: Urea nitrogen/Creatinine [Mass ratio] 13.7 mg/mg 10-20 [facility] Work Phone: No Panel Informationon 10-22 Estimated GFR (MDRD) Amer 79 mL/min >60 [facility] Work Phone: Comment on above: GFR Calc Estimated GFR (MDRD) Non-Af Amer 65 mL/min >60 [facility] Work Phone: Comment on above: Non- GFR Calc Prostate Specific Antigen Screen 0.79 ng/mL 0.00-4.00 [facility] Work Phone: Comment on above: This test was perfor med using the TPSA assay method for the[employer] chemistry system. Values obtained with differentassay methods cannot be used interchangably.When changing PSA assays in the course of monitoring apatient, additional sequential testing should be carriedout to confirm baseline values. Serum or plasma albumin danica urement (mass/volume)on 10-22-2021 Albumin [Mass/Vol] 3.5 g/dL 3.2-5.0 [facility] Work Phone: Serum or plasma albumin/glob ulin mass ratioon 10-22-2021 Albumin/Globulin [Mass ratio] 0.9 {ratio} 0.9-2.4 [facility] Work Phone: Serum or plasma calcium danica urement (mass/volume)on 10-22-2021 Calcium [Mass/Vol] 9.1 mg/dL 8.5-10.1 [facility] Work Phone: Serum or plasma cholesterol in HDL measurement (mass/volume)on 10-22-2021 Cholesterol in HDL [Mass/Vol] 38 mg/dL >40 [facility] Work Phone: Comment on above: The drugs N-Acetylcy steine and Metamizole may falsely depress this assay. Reference Range HDL <40 mg/dL Low HDL Cholesterol HDL >or= 60 mg/dL High HDL Cholesterol Serum or plasma cholesterol in VLDL measurement (mass/volume)on 10-22-2021 Cholesterol in VLDL [Mass/Vol] 30 mg/dL 5-40 [facility] Work Phone: Serum or plasma creatinine m easurement (mass/volume)on 10-22-2021 Creatinine [Mass/Vol] 1.24 mg/dL 0.70-1.30 [facility] Work Phone: Comment on above: The validity of the calculated GFR & GFRAA in patients over 70 years has not been determined. Clinical correlation is essential. Serum or plasma low density lipoprotein (LDL) cholesterol measurement (mass/volume)on 10-22-2021 Cholesterol in LDL [Mass/Vol] 144 mg/dL 0-130 [facility] Work Phone: Serum or plasma urea nitroge n measurement (mass/volume)on 10-22-2021 Urea nitrogen [Mass/Vol] 17 mg/dL 7-18 [facility] Work Phone: Thin prep Papanicolaou smear with manual screeningon 10-22-2021 Thin prep Papanicolaou smear with manual screening 27 U/L 15-37 [facility] Work Phone: Thin prep Papanicolaou smear with manual screening 5 5-15 [facility] Work Phone: Whole blood hemoglobin A1c/t otal hemoglobin ratio (mass fraction)on 08-06-2021 HbA1c (Bld) [Mass fraction] 5.4 % 3.8-5.6 [facility] Work Phone: Comment on above: Normal < 5.7 % Predi abetic 5.7 - 6.4 % Diabetic >or= 6.5 % Please note range changes. No Panel Informationon 04-22 SARS-CoV-2 Antigen (Rapid) [facility] Work Phone: Basophil percentageon 2021 Bilirubin [Mass/Vol] 0.30 mg/dL 0.20-1.00 [facility] Work Phone: Comment on above: For patients on eltr ombopag therapy, use of [place] TBIL is not recommended. Chloride [Moles/Vol] 105 mmol/L 98-107 [facility] Work Phone: Cholesterol [Mass/Vol] 228 mg/dL <200 [facility] Work Phone: Comment on above: <200 mg/dL Desirable 200-240 mg/dL Borderline >240 mg/dL High Risk Glucose [Mass/Vol] 93 mg/dL 74-106 [facility] Work Phone: Comment on above: Please note revised GLUCOSE reference range effective 2017. Potassium [Moles/Vol] 4.1 mmol/L 3.5-5.1 [facility] Work Phone: Protein [Mass/Vol] 7.7 g/dL 6.4-8.2 [facility] Work Phone: Sodium [Moles/Vol] 140 mmol/L 136-145 [facility] Work Phone: Triglyceride [Mass/Vol] 136 mg/dL [facility] Work Phone: Comment on above: The drugs N-Acetylcy steine and Metamizole may falsely depress this assay.Serum Triglycerides Reference Interval Normal <150 mg/dL Borderline high 150 - 199 mg/dL High 200 - 499 mg/dL Very High > or = 500 mg/dL Laboratory - Chemistry and C hemistry - challengeon 03-18-2021 ALP [Catalytic activity/Vol] 79 U/L 45-117 [facility] Work Phone: ALT [Catalytic activity/Vol] 38 U/L 16-61 [facility] Work Phone: CO2 [Moles/Vol] 27.0 mmol/L 21.0-32.0 [facility] Work Phone: Globulin (S) [Mass/Vol] 4.2 g/dL 2.2-4.2 [facility] Work Phone: Urea nitrogen/Creatinine [Mass ratio] 13.0 mg/mg 10-20 [facility] Work Phone: No Panel Informationon 03-18 Estimated GFR (MDRD) Amer 93 mL/min >60 [facility] Work Phone: Comment on above: GFR Calc Estimated GFR (MDRD) Non-Af Amer 77 mL/min >60 [facility] Work Phone: Comment on above: Non- GFR Calc Serum or plasma albumin danica urement (mass/volume)on 03-18-2021 Albumin [Mass/Vol] 3.5 g/dL 3.2-5.0 [facility] Work Phone: Serum or plasma albumin/glob ulin mass ratioon 03-18-2021 Albumin/Globulin [Mass ratio] 0.8 {ratio} 0.9-2.4 [facility] Work Phone: Serum or plasma calcium danica urement (mass/volume)on 03-18-2021 Calcium [Mass/Vol] 8.7 mg/dL 8.5-10.1 [facility] Work Phone: Serum or plasma cholesterol in HDL measurement (mass/volume)on 03-18-2021 Cholesterol in HDL [Mass/Vol] 39 mg/dL [facility] Work Phone: Comment on above: The drugs N-Acetylcy steine and Metamizole may falsely depress this assay. Reference Range HDL <40 mg/dL Low HDL Cholesterol HDL >or= 60 mg/dL High HDL Cholesterol Serum or plasma cholesterol in VLDL measurement (mass/volume)on 03-18-2021 Cholesterol in VLDL [Mass/Vol] 27 mg/dL 5-40 [facility] Work Phone: Serum or plasma creatinine m easurement (mass/volume)on 03-18-2021 Creatinine [Mass/Vol] 1.08 mg/dL 0.70-1.30 [facility] Work Phone: Comment on above: The validity of the calculated GFR & GFRAA in patients over 70 years has not been determined. Clinical correlation is essential. Serum or plasma low density lipoprotein (LDL) cholesterol measurement (mass/volume)on 03-18-2021 Cholesterol in LDL [Mass/Vol] 162 mg/dL 0-130 [facility] Work Phone: Serum or plasma urea nitroge n measurement (mass/volume)on 03-18-2021 Urea nitrogen [Mass/Vol] 14 mg/dL 7-18 [facility] Work Phone: Thin prep Papanicolaou smear with manual screeningon 03-18-2021 Thin prep Papanicolaou smear with manual screening 26 U/L 15-37 [facility] Work Phone: Thin prep Papanicolaou smear with manual screening 8 5-15 [facility] Work Phone: Whole blood hemoglobin A1c/t otal hemoglobin ratio (mass fraction)on 03-18-2021 HbA1c (Bld) [Mass fraction] 5.3 % 3.8-5.6 [facility] Work Phone: Comment on above: Normal < 5.7 % Predi abetic 5.7 - 6.4 % Diabetic >or= 6.5 % Please note range changes. .GFRon 01-15-2017 eGFR (non-black) mL/min/{1.73_m2} Normal [facility] ([place]) Comment on above: Result Comment: GFR Population [...] L IPID, CMP, GFR, TSH ####[address] [place], [place] [address] eGFR (non-black) 105 ml/min/1.73sqm Normal [facility] ([place]) Comment on above: Result Comment: GFR Population [...] L IPID, CMP, GFR, TSH ####[address] [place], [place] [address] CMPon 01-15-2017 Alanine aminotransferase (ALT) 41 U/L High 10-35 [facility] ([place]) Comment on above: Performed By: #### L IPID, CMP, GFR, TSH ####[address] [place], [place] [address] Albumin 4.1 G/dL Normal 3.5-5.0 [facility] ([place]) Comment on above: Performed By: #### L IPID, CMP, GFR, TSH ####[address] [place], [place] [address] Albumin/Globulin Ratio 1.5 {ratio} Normal 1.1-2.5 [facility] ([place]) Comment on above: Performed By: #### L IPID, CMP, GFR, TSH ####[address] [place], [place] [address] Alk Phos 76 IU/L Normal 40-135 [facility] ([place]) Comment on above: Performed By: #### L IPID, CMP, GFR, TSH ####[address] [place], [place] [address] Aspartate aminotransferase (AST) 27 U/L Normal 10-40 [facility] ([place]) Comment on above: Performed By: #### L IPID, CMP, GFR, TSH ####[address] [place], [place] [address] Bili Total 0.4 mg/dL Normal 0.2-1.0 [facility] ([place]) Comment on above: Performed By: #### L IPID, CMP, GFR, TSH ####[address] [place], [place] [address] BUN/Creatinine Ratio 14 ratio Normal 7-27 [facility] ([place]) Comment on above: Performed By: #### L IPID, CMP, GFR, TSH ####[address] [place], [place] [address] Calcium 9.2 mg/dL Normal 8.4-10.2 [facility] ([place]) Comment on above: Performed By: #### L IPID, CMP, GFR, TSH ####[address] [place], [place] [address] Chloride 102 mmol/L Normal 98-107 [facility] ([place]) Comment on above: Performed By: #### L IPID, CMP, GFR, TSH ####[id number] [place], [place] [address] CO2 27 mmol/L Normal 22-29 [facility] ([place]) Comment on above: Performed By: #### L IPID, CMP, GFR, TSH ####[id number] [place], [place] [address] Creatinine 0.9 mg/dL Normal 0.6-1.2 [facility] ([place]) Comment on above: Performed By: #### L IPID, CMP, GFR, TSH ####[address] [place], [place] [address] Electrolyte Balance 9.0 mEq/L Normal [facility] ([place]) Comment on above: Performed By: #### L IPID, CMP, GFR, TSH ####[address] [place], [place] [address] Globulin 2.8 G/dL Normal [facility] ([place]) Comment on above: Performed By: #### L IPID, CMP, GFR, TSH ####[address] [place], [place] [address] Glucose mass conc 103 mg/dL Normal 70-105 [facility] ([place]) Comment on above: Performed By: #### L IPID, CMP, GFR, TSH ####[address] [place], [place] [address] Potassium molar conc 4.5 mmol/L Normal 3.5-5.1 [facility] ([place]) Comment on above: Performed By: #### L IPID, CMP, GFR, TSH ####[address] [place], [place] [address] Protein 6.9 G/dL Normal 6.0-8.3 [facility] ([place]) Comment on above: Performed By: #### L IPID, CMP, GFR, TSH ####[address] [place], [place] [address] Sodium 138 mmol/L Normal 136-146 [facility] ([place]) Comment on above: Performed By: #### L IPID, CMP, GFR, TSH ####[address] [place], [place] [address] Urea nitrogen 13.0 mg/dL Normal 7.0-18.0 [facility] ([place]) Comment on above: Performed By: #### L IPID, CMP, GFR, TSH ####[address] [place], [place] [address] LIPIDon 01-15-2017 Cholesterol 227 mg/dL High 131-200 [facility] ([place]) Comment on above: Result Comment: Chol esterol Reference Interval:Less than 200 [id number] Borderline high [id number] and above High risk Performed By: #### L IPID, CMP, GFR, TSH ####[address] [place], [place] [address] HDL Cholesterol 40 mg/dL Normal 35-90 [facility] ([place]) Comment on above: Result Comment: HDL Reference Interval:Less than 40 Low - high risk60 or above Optimal/lowers risk Performed By: #### L IPID, CMP, GFR, TSH ####[id number] [place], [place] [address] LDL Cholesterol 150 mg/dL High 0-130 [facility] ([place]) Comment on above: Result Comment: LDL is a calculated result and requires a 12-hr fast.LDL Reference Interval:Less than 100 [id number] Near or above [id number] Borderline high [id number] High [id number] and above Very high risk Performed By: #### L IPID, CMP, GFR, TSH ####[address] [place], [place] [address] Triglyceride 184 mg/dL High 40-150 [facility] ([place]) Comment on above: Result Comment: Trig lyceride Reference Interval:Less than 150 [id number] Borderline high [id number] High [id number] or higher Very high risk Performed By: #### L IPID, CMP, GFR, TSH ####[address] [place], [place] [address] TSHon 01-15-2017 Thyroid stimulating hormone (TSH) 1.34 mcIU/mL Normal 0.27-4.20 [facility] ([place]) Comment on above: Performed By: #### L IPID, CMP, GFR, TSH ####[id number] [place], [place] [address] Vital Signs Date Time Vital Sign Value Performing Clinician Ronit mcgee 10-19-2024 07:09-0400 Body height 175.26 cm Marilyn SINGH Work Phone: [facility] 10-19-2024 07:09-0400 Body mass index (BMI) [Ratio] 49.6 kg/m2 Marilyn SINGH Work Phone: [facility] 10-19-2024 07:09-0400 Body weight 152.4 kg Marilyn Gordon CHEMISTRY LECTURER-C Work Phone: [facility] 10-19-2024 07:09-0400 Diastolic blood pressure 76 mm[Hg] Marilyn Gordon CHEMISTRY LECTURER-C Work Phone: [facility] 10-19-2024 07:09-0400 Heart rate 64 /min Marilyn Gordon CHEMISTRY LECTURER-C Work Phone: [facility] 10-19-2024 07:09-0400 Respiratory rate 20 /min Marilyn Gordon CHEMISTRY LECTURER-C Work Phone: [facility] 10-19-2024 07:09-0400 SaO2% (BldA) [Mass fraction] 97 % Marilyn Gordon CHEMISTRY LECTURER-C Work Phone: [facility] 10-19-2024 07:09-0400 Systolic blood pressure 122 mm[Hg] Marilyn Gordon CHEMISTRY LECTURER-C Work Phone: [facility] 07-22-2024 08:06-0400 Body temperature 98.3 [degF] Marilyn Gordon CHEMISTRY LECTURER-C Work Phone: [facility] 07-22-2024 08:06-0400 Diastolic blood pressure 82 mm[Hg] Marilyn Gordon CHEMISTRY LECTURER-C Work Phone: [facility] 07-22-2024 08:06-0400 Heart rate 71 /min Marilyn Gordon CHEMISTRY LECTURER-C Work Phone: [facility] 07-22-2024 08:06-0400 Respiratory rate 17 /min Marilyn Gordon CHEMISTRY LECTURER-C Work Phone: [facility] 07-22-2024 08:06-0400 SaO2% (BldA) [Mass fraction] 97 % Marilyn Gordon CHEMISTRY LECTURER-C Work Phone: [facility] 07-22-2024 08:06-0400 Systolic blood pressure 138 mm[Hg] Marilyn Gordon CHEMISTRY LECTURER-C Work Phone: [facility] 06-23-2023 21:12-0400 Body temperature 97.9 [degF] CHEMISTRY LECTURER-C Marilyn Gordon CHEMISTRY LECTURER Work Phone: [facility] 06-23-2023 21:12-0400 Diastolic blood pressure 95 mm[Hg] CHEMISTRY LECTURER-C Marilyn Gordon CHEMISTRY LECTURER Work Phone: [facility] 06-23-2023 21:12-0400 Heart rate 62 /min CHEMISTRY LECTURER-C Marilyn Gordon CHEMISTRY LECTURER Work Phone: [facility] 06-23-2023 21:12-0400 Respiratory rate 16 /min CHEMISTRY LECTURER-C Marilyn Gordon CHEMISTRY LECTURER Work Phone: [facility] 06-23-2023 21:12-0400 SaO2% (BldA) [Mass fraction] 97 % CHEMISTRY LECTURER-C Marilyn Gordon CHEMISTRY LECTURER Work Phone: [facility] 06-23-2023 21:12-0400 Systolic blood pressure 170 mm[Hg] CHEMISTRY LECTURER-C Marilyn Gordon CHEMISTRY LECTURER Work Phone: [facility] 06-23-2023 19:27-0400 Body mass index (BMI) [Ratio] 53 kg/m2 CHEMISTRY LECTURER-C Marilyn Gordon CHEMISTRY LECTURER Work Phone: [facility] 06-23-2023 19:27-0400 Body weight 162.9 kg CHEMISTRY LECTURER-C Marilyn Gordon CHEMISTRY LECTURER Work Phone: [facility] 06-23-2023 17:17-0400 Body height 175.26 cm CHEMISTRY LECTURER-C Marilyn Gordon CHEMISTRY LECTURER Work Phone: [facility] 04-22-2023 08:46-0500 Body height 175.26 cm CHEMISTRY LECTURER-C Marilyn Gordon CHEMISTRY LECTURER Work Phone: [facility] 04-22-2023 08:46-0500 Body mass index (BMI) [Ratio] 50.5 kg/m2 CHEMISTRY LECTURER-C Marilyn Gordon CHEMISTRY LECTURER Work Phone: [facility] 04-22-2023 08:46-0500 Body weight 155.12 kg CHEMISTRY LECTURER-C Marilyn Gordon CHEMISTRY LECTURER Work Phone: [facility] 04-22-2023 08:46-0500 Diastolic blood pressure 88 mm[Hg] CHEMISTRY LECTURER-C Marilyn oGrdon CHEMISTRY LECTURER Work Phone: [facility] 04-22-2023 08:46-0500 Heart rate 64 /min CHEMISTRY LECTURER-C Marilyn Gordon CHEMISTRY LECTURER Work Phone: [facility] 04-22-2023 08:46-0500 Respiratory rate 16 /min CHEMISTRY LECTURER-C Marilyn Gordon CHEMISTRY LECTURER Work Phone: [facility] 04-22-2023 08:46-0500 Systolic blood pressure 144 mm[Hg] CHEMISTRY LECTURER-C Marilyn Gordon CHEMISTRY LECTURER Work Phone: [facility] 03-24-2023 06:54-0500 Body temperature 98.3 [degF] CHEMISTRY LECTURER-C Marilyn Gordon CHEMISTRY LECTURER Work Phone: [facility] 03-24-2023 06:54-0500 Diastolic blood pressure 80 mm[Hg] CHEMISTRY LECTURER-C Marilyn Gordon CHEMISTRY LECTURER Work Phone: [facility] 03-24-2023 06:54-0500 Heart rate 78 /min CHEMISTRY LECTURER-C Marilyn Gordon CHEMISTRY LECTURER Work Phone: [facility] 03-24-2023 06:54-0500 Respiratory rate 14 /min CHEMISTRY LECTURER-C Marilyn Gordon CHEMISTRY LECTURER Work Phone: [facility] 03-24-2023 06:54-0500 SaO2% (BldA) [Mass fraction] 98 % CHEMISTRY LECTURER-C Marilyn Gordon CHEMISTRY LECTURER Work Phone: [facility] 03-24-2023 06:54-0500 Systolic blood pressure 140 mm[Hg] CHEMISTRY LECTURER-C Marilyn Gordon CHEMISTRY LECTURER Work Phone: [facility] 09-19-2022 14:36-0400 Body height 175.26 cm CHEMISTRY LECTURER-C Marilyn Gordon CHEMISTRY LECTURER Work Phone: [facility] 09-19-2022 14:36-0400 Body mass index (BMI) [Ratio] 48.9 kg/m2 CHEMISTRY LECTURER-C Marilyn Gordon CHEMISTRY LECTURER Work Phone: [facility] 09-19-2022 14:36-0400 Body weight 150.13 kg CHEMISTRY LECTURER-C Marilyn Gordon CHEMISTRY LECTURER Work Phone: [facility] 09-19-2022 14:36-0400 Diastolic blood pressure 94 mm[Hg] CHEMISTRY LECTURER-C Marilyn Gordon CHEMISTRY LECTURER Work Phone: [facility] 09-19-2022 14:36-0400 Heart rate 68 /min CHEMISTRY LECTURER-C Marilyn Gordon CHEMISTRY LECTURER Work Phone: [facility] 09-19-2022 14:36-0400 Respiratory rate 18 /min CHEMISTRY LECTURER-C Marilyn Gordon CHEMISTRY LECTURER Work Phone: [facility] 09-19-2022 14:36-0400 Systolic blood pressure 150 mm[Hg] CHEMISTRY LECTURER-C Marilyn Gordon CHEMISTRY LECTURER Work Phone: [facility] 05-19-2022 16:48-0400 Body temperature 97.4 [degF] CHEMISTRY LECTURER-C Marilyn Gordon CHEMISTRY LECTURER Work Phone: [facility] 05-19-2022 16:48-0400 Diastolic blood pressure 90 mm[Hg] CHEMISTRY LECTURER-C Marilyn Gordon CHEMISTRY LECTURER Work Phone: [facility] 05-19-2022 16:48-0400 Heart rate 67 /min CHEMISTRY LECTURER-C Marilyn Gordon CHEMISTRY LECTURER Work Phone: [facility] 05-19-2022 16:48-0400 Respiratory rate 18 /min CHEMISTRY LECTURER-C Marilyn Gordon CHEMISTRY LECTURER Work Phone: [facility] 05-19-2022 16:48-0400 SaO2% (BldA) [Mass fraction] 98 % CHEMISTRY LECTURER-C Marilyn Gordon CHEMISTRY LECTURER Work Phone: [facility] 05-19-2022 16:48-0400 Systolic blood pressure 140 mm[Hg] CHEMISTRY LECTURER-C Marilyn Gordon CHEMISTRY LECTURER Work Phone: [facility] 03-06-2022 11:22-0500 Body height 175.26 cm CHEMISTRY LECTURER-C Marilyn Gordon CHEMISTRY LECTURER Work Phone: [facility] 03-06-2022 11:20-0500 Body mass index (BMI) [Ratio] 48.4 kg/m2 CHEMISTRY LECTURER-C Marilyn Gordon CHEMISTRY LECTURER Work Phone: [facility] 03-06-2022 11:20-0500 Body weight 148.77 kg CHEMISTRY LECTURER-C Marilyn Gordon CHEMISTRY LECTURER Work Phone: [facility] 03-06-2022 11:20-0500 Diastolic blood pressure 81 mm[Hg] CHEMISTRY LECTURER-C Marilyn Gordon CHEMISTRY LECTURER Work Phone: [facility] 03-06-2022 11:20-0500 Heart rate 72 /min CHEMISTRY LECTURER-C Marilyn Gordon CHEMISTRY LECTURER Work Phone: [facility] 03-06-2022 11:20-0500 Respiratory rate 18 /min CHEMISTRY LECTURER-C Marilyn Gordon CHEMISTRY LECTURER Work Phone: [facility] 03-06-2022 11:20-0500 SaO2% (BldA) [Mass fraction] 97 % CHEMISTRY LECTURER-C Marilyn Gordon CHEMISTRY LECTURER Work Phone: [facility] 03-06-2022 11:20-0500 Systolic blood pressure 133 mm[Hg] CHEMISTRY LECTURER-C Marilyn Gordon CHEMISTRY LECTURER Work Phone: [facility] 02-19-2022 09:01-0500 Body height 175.26 cm CHEMISTRY LECTURER-C Marilyn Gordon CHEMISTRY LECTURER Work Phone: [facility] Work Phone: 02-19-2022 09:01-0500 Body weight 147.41 kg CHEMISTRY LECTURER-C Marilyn Gordon CHEMISTRY LECTURER Work Phone: [facility] 02-18-2022 07:17-0500 Body mass index (BMI) [Ratio] 47.9 kg/m2 CHEMISTRY LECTURER-C Marilyn Gordon CHEMISTRY LECTURER Work Phone: [facility] 01-13-2022 15:05-0500 Body height 175.26 cm CHEMISTRY LECTURER-C Marilyn Gordon CHEMISTRY LECTURER Work Phone: [facility] Work Phone: 01-13-2022 15:05-0500 Body mass index (BMI) [Ratio] 48.1 kg/m2 CHEMISTRY LECTURER-C Marilyn Gordon CHEMISTRY LECTURER Work Phone: [facility] Work Phone: 01-13-2022 15:05-0500 Body weight 147.87 kg CHEMISTRY LECTURER-C Marilyn Gordon CHEMISTRY LECTURER Work Phone: [facility] Work Phone: 01-13-2022 15:05-0500 Diastolic blood pressure 92 mm[Hg] CHEMISTRY LECTURER-C Marilyn Gordon CHEMISTRY LECTURER Work Phone: [facility] Work Phone: 01-13-2022 15:05-0500 Heart rate 86 /min CHEMISTRY LECTURER-C Marilyn Gordon CHEMISTRY LECTURER Work Phone: [facility] Work Phone: 01-13-2022 15:05-0500 Respiratory rate 16 /min CHEMISTRY LECTURER-C Marilyn Gordon CHEMISTRY LECTURER Work Phone: [facility] Work Phone: 01-13-2022 15:05-0500 Systolic blood pressure 148 mm[Hg] CHEMISTRY LECTURER-C Marilyn Gordon CHEMISTRY LECTURER Work Phone: [facility] Work Phone: 11-08-2021 06:51-0400 Body mass index (BMI) [Ratio] 46 kg/m2 CHEMISTRY LECTURER-C Marilyn Gordon CHEMISTRY LECTURER Work Phone: [facility] Work Phone: 11-08-2021 06:51-0400 Body temperature 98.7 [degF] CHEMISTRY LECTURER-C Marilyn Gordon CHEMISTRY LECTURER Work Phone: [facility] Work Phone: 11-08-2021 06:51-0400 Body weight 142.65 kg CHEMISTRY LECTURER-C Marilyn Gordon CHEMISTRY LECTURER Work Phone: [facility] Work Phone: 11-08-2021 06:51-0400 Diastolic blood pressure 80 mm[Hg] CHEMISTRY LECTURER-C Marilyn Gordon CHEMISTRY LECTURER Work Phone: [facility] Work Phone: 11-08-2021 06:51-0400 Heart rate 76 /min CHEMISTRY LECTURER-C Marilyn Gordon CHEMISTRY LECTURER Work Phone: [facility] Work Phone: 11-08-2021 06:51-0400 Respiratory rate 18 /min CHEMISTRY LECTURER-C Marilyn Gordon CHEMISTRY LECTURER Work Phone: [facility] Work Phone: 11-08-2021 06:51-0400 Systolic blood pressure 118 mm[Hg] CHEMISTRY LECTURER-C Marilyn Gordon CHEMISTRY LECTURER Work Phone: [facility] Work Phone: Encounters Encounter Date Encounter Type Care Provider Facility Start: 12-21-2024 End: 12-21-2024 ambulatory Marilyn Gordon CHEMISTRY LECTURER Facility:[facility] Start: 11-23-2024 End: 11-23-2024 ambulatory Marilyn Gordon CHEMISTRY LECTURER-C Work Phone: -Ultrasound [facility] Start: 11-23-2024 End: 11-23-2024 Patient encounter procedure Marilyn Gordon CHEMISTRY LECTURER-C -Ultrasound [facility] Work Phone: Start: 11-23-2024 End: 11-23-2024 ambulatory Marilyn Gordon CHEMISTRY LECTURER Facility:[facility] Start: 11-16-2024 End: 11-16-2024 ambulatory Marilyn Gordon CHEMISTRY LECTURER-C Work Phone: -Laboratory [place] Start: 11-16-2024 End: 11-16-2024 Patient encounter procedure Marilyn Gordon CHEMISTRY LECTURER-C -Laboratory [place] Work Phone: Start: 11-16-2024 End: 11-16-2024 ambulatory Marilyn Gordon CHEMISTRY LECTURER Facility:[facility] Start: 10-21-2024 Registered Referred [facility] [facility] -Employee Health Start: 10-21-2024 End: 10-21-2024 ambulatory Marilyn Gordon CHEMISTRY LECTURER-C Work Phone: -Laboratory Start: 10-21-2024 End: 10-21-2024 Patient encounter procedure Marilyn Gordon CHEMISTRY LECTURER-C -Laboratory Work Phone: Start: 10-20-2024 End: 10-20-2024 Patient encounter procedure Radha Mello CHEMISTRY LECTURER-C -[facility] Work Phone: Start: 10-20-2024 End: 10-21-2024 ambulatory Marilyn Gordon CHEMISTRY LECTURER-C Work Phone: -[facility] Start: 07-22-2024 End: 07-22-2024 Patient encounter procedure Sylvain Adler [place] -[facility] Work Phone: Start: 07-22-2024 End: 07-22-2024 ambulatory Marilyn Gordon CHEMISTRY LECTURER-C Work Phone: [facility] Work Phone: Start: 07-14-2024 End: 07-14-2024 ambulatory Marilyn Gordon CHEMISTRY LECTURER-C Work Phone: [facility] Work Phone: Start: 07-14-2024 End: 07-14-[address] Ruben Marie MD -Laboratory, [place] Work Phone: Start: 07-14-2024 End: 07-14-2024 ambulatory Ruben Marie Facility:[facility] Start: 06-23-2023 End: 06-23-2023 Emergency department patient visit CHEMISTRY LECTURER-C Marilyn Gordon CHEMISTRY LECTURER Work Phone: [facility]-Emergency Department Work Phone: Start: 05-09-2023 End: 05-09-2023 ambulatory CHEMISTRY LECTURER-C Marilyn Gordon CHEMISTRY LECTURER Work Phone: [facility] Work Phone: Start: 05-09-2023 End: 05-09-2023 Patient encounter procedure CHEMISTRY LECTURER-C Marilyn Gordon CHEMISTRY LECTURER Work Phone: [facility]-Laboratory Work Phone: Start: 04-29-2023 End: 04-29-2023 Patient encounter procedure CHEMISTRY LECTURER-C Marilyn Gordon CHEMISTRY LECTURER Work Phone: [facility]-Laboratory Work Phone: Start: 04-22-2023 End: 04-22-2023 Patient encounter procedure CHEMISTRY LECTURER-C Marilyn Gordon CHEMISTRY LECTURER Work Phone: [facility] Work Phone: Start: 03-24-2023 End: 03-24-2023 Patient encounter procedure CHEMISTRY LECTURER-C Marilyn Gordon CHEMISTRY LECTURER Work Phone: [facility] Work Phone: Start: 09-19-2022 End: 09-19-2022 Patient encounter procedure CHEMISTRY LECTURER-C Marilyn Gordon CHEMISTRY LECTURER Work Phone: [facility] Work Phone: Start: 09-17-2022 End: 09-17-2022 ambulatory CHEMISTRY LECTURER-C Marilyn Gordon CHEMISTRY LECTURER Work Phone: [facility] Work Phone: Start: 09-17-2022 End: 09-17-2022 Patient encounter procedure CHEMISTRY LECTURER-C Marilyn Gordon CHEMISTRY LECTURER Work Phone: [facility]-Laboratory Work Phone: Start: 06-03-2022 End: 06-03-2022 ambulatory CHEMISTRY LECTURER-C Marilyn Gordon CHEMISTRY LECTURER Work Phone: [facility] Work Phone: Start: 06-03-2022 End: 06-03-2022 Patient encounter procedure CHEMISTRY LECTURER-C Marilyn Gordon CHEMISTRY LECTURER Work Phone: [facility] Start: 05-19-2022 End: 05-19-2022 Patient encounter procedure CHEMISTRY LECTURER-C Marilyn Gordon CHEMISTRY LECTURER Work Phone: [facility] Start: 05-08-2022 End: 05-08-2022 ambulatory CHEMISTRY LECTURER-C Marilyn Gordon CHEMISTRY LECTURER Work Phone: [facility] Work Phone: Start: 05-08-2022 End: 05-08-2022 Patient encounter procedure CHEMISTRY LECTURER-C Marilyn Gordon CHEMISTRY LECTURER Work Phone: [facility]-Laboratory Start: 04-28-2022 Non-patient / Non-visit CHEMISTRY LECTURER-C Marilyn Gordon CHEMISTRY LECTURER Work Phone: [facility] Start: 04-28-2022 End: 04-28-2022 Patient encounter procedure CHEMISTRY LECTURER-C Marilyn Gordon CHEMISTRY LECTURER Work Phone: [facility]-Cardiovascular Services Start: 03-06-2022 End: 03-06-2022 Patient encounter procedure CHEMISTRY LECTURER-C Marilyn Gordon CHEMISTRY LECTURER Work Phone: [facility] Start: 02-19-2022 End: 02-19-2022 Admission to same day surgery center CHEMISTRY LECTURER-C Marilyn Gordon CHEMISTRY LECTURER Work Phone: [facility]-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 Start: 02-19-2022 End: 02-19-2022 ambulatory CHEMISTRY LECTURER-C Marilyn Gordon CHEMISTRY LECTURER Work Phone: [facility] Work Phone: Start: 02-19-2022 End: 02-19-2022 Non-patient / Non-visit CHEMISTRY LECTURER-C Marilyn Gordon CHEMISTRY LECTURER Work Phone: [facility] Start: 02-15-2022 End: 02-15-2022 ambulatory CHEMISTRY LECTURER-C Marilyn Gordon CHEMISTRY LECTURER Work Phone: [facility] Work Phone: Start: 02-15-2022 End: 02-15-2022 Patient encounter procedure CHEMISTRY LECTURER-C Marilyn Gordon CHEMISTRY LECTURER Work Phone: [facility]-Laboratory Start: 02-13-2022 Non-patient / Non-visit CHEMISTRY LECTURER-C Marilyn Gordon CHEMISTRY LECTURER Work Phone: [facility] Start: 01-27-2022 Non-patient / Non-visit CHEMISTRY LECTURER-C Marilyn Gordon CHEMISTRY LECTURER Work Phone: [facility] Start: 01-23-2022 Non-patient / Non-visit CHEMISTRY LECTURER-C Marilyn Gordon CHEMISTRY LECTURER Work Phone: [facility] Start: 01-23-2022 End: 01-23-2022 Patient encounter procedure CHEMISTRY LECTURER-C Marilyn Gordon CHEMISTRY LECTURER [facility] Start: 01-23-2022 Non-patient / Non-visit CHEMISTRY LECTURER-C Marilyn Gordon CHEMISTRY LECTURER Work Phone: [facility] Start: 01-13-2022 End: 01-13-2022 Patient encounter procedure CHEMISTRY LECTURER-C Marilyn Gordon CHEMISTRY LECTURER Work Phone: [facility] Start: 11-08-2021 End: 11-08-2021 Patient encounter procedure CHEMISTRY LECTURER-C Marilyn Gordon CHEMISTRY LECTURER Work Phone: [facility] Start: 10-22-2021 End: 10-22-2021 Patient encounter procedure [facility]-Laboratory Start: 09-19-2021 End: 10-06-2021 Discharged Recurring [facility]-Employee Health Start: 08-29-2021 End: 08-29-2021 Patient encounter procedure [facility]-Laboratory, Specimen Start: 08-26-2021 End: 09-05-2021 [facility] Start[facility] 08-26-2021 [facility]: 08-15-2021 End: 09-05-2021 [facility] Start: 08-15-2021 [facility] Start: 08-06-2021 End: 08-06-2021 Patient encounter procedure [facility]-Laboratory Start: 06-20-2021 End: 07-06-2021 Discharged Recurring [facility] Start: 04-22-2021 End: 05-06-2021 Discharged Recurring [facility] Start: 03-18-2021 End: 03-18-2021 Patient encounter procedure [facility]-Laboratory Start: 01-15-2017 End: 01-20-2017 Ambulatory MARILYN GORDON Facility:[facility] Procedures Date Procedure Procedure Detail Performing Clinician Start: 11-23-2024 Other BP Soft Tissue Li genie Gordon CHEMISTRY LECTURER-C Work Phone: Start: 10-21-2024 Hepatitis C antibody measurement Marilyn Gordon CHEMISTRY LECTURER-C Work Phone: Comment on above: Reactive: Presumptiv e evidence of antibodies to HCV. Follow CDC recommendations for supplemental testing.Non-Reactive: Antibodies to HCV were not detected; does not exclude the possibility of exposure to HCVReactive Results are presumptive evidence of antibodies to HCV. Follow CDC recommendations for supplemental testing.Order confirmation testing: HCV Quant by PCR testing - HCVPCR lc#[id number] Non Reactive: < 0.8 Equivocal: >/= 0.8 to < 1.0 Reactive: >/= 1.0The CDC requires that a reactive/equivocal HCV antibody result be sent out for confirmation. HCV Quant by PCR testing. Start: 10-21-2024 Prostate specific an tigen measurement Marilyn Gordon CHEMISTRY LECTURER-C Work Phone: Comment on above: This test [...] Serum inorganic phos phate measurement Marilyn Gordon CHEMISTRY LECTURER-C Work Phone: Start: 10-21-2024 Urnls dip stick/tabl et reagent auto microscopy Marilyn Gordon CHEMISTRY LECTURER-C Work Phone: Start: 06-23-2023 CT of abdomen and pe lvis without contrast CHEMISTRY LECTURER-C Marilyn Gordon CHEMISTRY LECTURER Work Phone: Start: 06-03-2022 MRI of brain with contrast CHEMISTRY LECTURER-C Marilyn Gordon CHEMISTRY LECTURER Work Phone: Start: 02-15-2022 Plain chest X-ray CHEMISTRY LECTURER-C Marilyn Gordon CHEMISTRY LECTURER Work Phone: Start: 01-23-2022 Radionuclide imaging of perfusion of myocardium under exercise stress CHEMISTRY LECTURER-Emely Gordon CHEMISTRY LECTURER Work Phone: Start: 06-20-2021 End: 06-20-2021 Viral antigen assay Start: 04-22-2021 SARS-CoV-2 Antigen (Rapid) Viral antigen assay Plan of Treatment Date Care Activity Detail Author Start: 11-23-2024 Other BP Soft Tissue Other BP Soft Tissue [facility] Start: 11-23-2024 [facility] Start: 06-23-2023 [facility] Catheterization of l eft heart [facility] Work Phone: Patient Education ED Flank Pain, Uncertain Cause ED Pulmonary Nodule, Solitary [facility] Work Phone: Patient referral [facility] Work Phone: [facility] Immunizations Immunization Date Immunization Notes Care Provider Duyen cool 12-24-2023 influenza, seasonal, injectable, preservative free Marilyn Gordon CHEMISTRY LECTURER-C Work Phone: [facility] 01-12-2023 influenza, injectabl e, quadrivalent, preservative free CHEMISTRY LECTURER-C Marilyn Gordon CHEMISTRY LECTURER Work Phone: [facility] 12-16-2021 influenza, injectabl e, quadrivalent, preservative free CHEMISTRY LECTURER-C Marilyn Lorson CHEMISTRY LECTURER Work Phone: [facility] 12-16-2021 influenza, seasonal, injectable CHEMISTRY LECTURER-C Marilyn Mcnultyson CHEMISTRY LECTURER Work Phone: [facility] 12-20-2020 influenza, injectabl e, quadrivalent, preservative free CHEMISTRY LECTURER-C Marilyn Lorson CHEMISTRY LECTURER Work Phone: [facility] 12-20-2020 influenza, seasonal, injectable [facility] 04-17-2020 Covid (Moderna) [facility] 03-20-2020 Covid (Moderna) [facility] 12-14-2019 influenza, injectabl e, quadrivalent, preservative free CHEMISTRY LECTURER-C Marilyn Mcnultyson CHEMISTRY LECTURER Work Phone: [facility] 12-14-2019 influenza, seasonal, injectable [facility] 01-31-2019 influenza, injectabl e, quadrivalent, preservative free CHEMISTRY LECTURER-C Marilyn Mcnultyson CHEMISTRY LECTURER Work Phone: [facility] 01-31-2019 influenza, seasonal, injectable [facility] 02-19-2015 influenza, injectabl e, quadrivalent, preservative free CHEMISTRY LECTURER-C Marilyn Lorson CHEMISTRY LECTURER Work Phone: [facility] 02-19-2015 influenza, seasonal, injectable [facility] 12-15-2013 influenza, injectabl e, quadrivalent, preservative free CHEMISTRY LECTURER-C Marilyn Mcnultyson CHEMISTRY LECTURER Work Phone: [facility] 12-15-2013 influenza, seasonal, injectable [facility] 01-31-2013 Influenza virus vaccine [facility] Payers Date Payer Category Payer Self-pay [id number] 2024 Unknown [id number] 2017 Unknown [id number] Unknown [id number] 2.16.8 [id number] Unknown [id number] 2.16.8 [id number] Unknown [id number] 2.16.8 [id number] Unknown [id number] 2.16.8 [id number] Unknown [id number] 2.16.8 [id number] Unknown [id number] 2.16.8 [id number] Unknown [id number] 2.16.8 [id number] Unknown [id number] 2.16.8 [id number] Unknown [id number] 2.16.8 [id number] Social History Date Type Detail Facility Start: 01-11-2021 End: 06-23-2023 Tobacco smoking status NHIS Unknown if ever smoked [facility] Start: 02-08-[address]-sm[address] [facility] Start: 1970 Sex Assigned At Male [facility] Start: 06-23-2023 Tobacco smoking stat us NVIS Never smoked tobacco (finding) [facility] Sex Male [facility] Medical Equipment Procedure Code Equipment Code Equipment [...] 01-18-2019 Femoral vessel s uture implantation set [id number] FDA Start: 02-19-2022 TUBE,EAR T-TUBE FDA Start: [...] Note Facility 11-25-2024 Radiology Diagnostic study note [facility] Imaging Services [address] [place] [address] Other Unlisted US Procedure MR#: [id number] Acct: [id number] Name: KAMALA BRASWELL JrOctavia Rep #: [id number] : 1970 M 54 From: Zeeshan Navarro MD PCP: FRANCISCO Escalona Status: REG C LI Study:Other Unlisted US Procedure Date of Exa m: 11/23/24 Exam# [id number] Ordering Dr: Hemal Gordon NP CHEMISTRY LECTURER-C PROCEDURE: OTHER UNLISTED US PROCEDURE 11/23/2024 REASON FOR EXAM: Right supraclavicular palpable abnormality. TECHNIQUE: Procedure Code: USOTH SOFT Modality: US Procedure: OTHER UNLISTED US PROCEDURE COMPARISON: None FINDINGS: The palpable lump corresponds to a normal vessel. US/Other Unlisted US Procedure IMPRESSION: The palpable abnormality corresponds to a normal vessel. Reading Location: [place] [address] CC: NIKO-C Marilyn Gordon ~ Quality Eng: Signed [facility] 10-20-2024 Evaluation note Diagnosis Onset Date Resolution Coronary artery disease chronic A ugust 2024 7:50am Hyperlipidemia chronic October 7:50am Hypertension chronic October 20, 2024 7:50am CORBIN treated with BiPAP [facility] 2024 7:50am [facility] Work Phone: 1(929) 367-354205-16-2025 Evaluation note* Diagnosis Onset Date Resolution Status Admit Date Acute upper respiratory infection acute July 22, 2024 7 :58am Coronary artery disease chronic A ugust 2024 7:50am Hyperlipidemia chronic October 7:50am Hypertension chronic October 20, 2024 7:50am CORBIN treated with BiPAP [facility] 2024 7:50am [facility] Work Phone: 1(439) 275-179304-16-2024 Discharge summary Author Jere Zhu [facility] June 23, 2023 9:02pm Note Date/Time June 23, 2023 6:0 4pm [facility] Medical Records Department [address] [place] [id number] Emergency Department Summary 06/23/23 MR#: [id number] Acct: [id number] Name: MICHAELLEKAMALA ADY Christiansen Rep #:[id number] [...] nausea or vomiting. Denies constipation ordiarrhea. PFSH [facility] Medical History Abnormal stress test Chest [...] Clarity Clear Urine pH 7.0 Ur Specific Girard 1.005 Urine Protein Negative Urine Glucose (UA) [...] Q5-15M PRN Patient Comments: TAKE 1 TABLET [id number] EVERY 5 MINUTES NEEDED FOR CHEST PAIN [...] Marilyn Gordon NP Referrals: Marilyn Gordon NP, CHEMISTRY LECTURER-C [Primary Care Provider] - Disposition Disposition: Home, Self Care What to do if you have Problems For any increased pain, shortness of breath, bleeding, nausea or vomiting, chestpain, or any unexpected problems, contact your Primary Care Provider. Call [facility] ([phone]) or report to the closest Emergency Room. Call 911 if necessary. 06/23/232101 <Electronically signed by Jere Zhu DO> Cosigner Signature (if applicable): CC: JOHNC Marilyn Gordon ~ Signed [facility] Work Phone: 1(929) 141-964301-01-2020 Chief complaint+Reason for visit Narrative * Chief Complaint COVID-19/[facility] LAST SEEN 03/2019 NN PT CHEST TIGHTNESS CHEST TIGHTNESS CHEST PAIN/ABNORMAL STRESS TST EORDER- LABS AND XRAY Reason for Visit Chest pain Hyperlipidemia Hypertension [facility] Work Phone: 1(250) 373-917601-01-2020 Chief complaint+Reason for visit Narrative * Chief Complaint COVID-19/[facility] LAST SEEN 03/2019 NN PT CHEST TIGHTNESS CHEST TIGHTNESS CHEST PAIN/ABNORMAL STRESS TST EORDER- LABS AND XRAY CHEST PAIN/ABNORMAL STRESS TST Reason for Visit Chest pain Hyperlipidemia Hypertension [facility] Work Phone: Evaluation noteNo assessment information available [facility] Work Phone: Evaluation note* Diagnosis Onset Date Resolution Status Chest pain acute Hyperlipidemia chronic Hypertension [facility] Work Phone: Evaluation note* Diagnosis Onset Date Resolution Status Chest pain chronic Hyperlipidemia chronic Hypertension [facility] Work Phone: Evaluation note* Diagnosis Onset Date Resolution Status Chest pain chronic Hyperlipidemia chronic Hypertension chronic Exacerbation of gout acute [facility] Work Phone: Evaluation note* Diagnosis Onset Date Resolution Status Chest tightness chronic 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 [employer] [place] Hyperlipidemia chronic Hypertension chronic CORBIN treated with BiPAP [facility] Work Phone: Evaluation note* Diagnosis Onset Date Resolution Status Hordeolum externum left lower eyelid acute 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 [employer] [place] Hyperlipidemia chronic Hypertension chronic Morbid obesity chronic CORBIN treated with BiPAP [facility] Work Phone: Reason for referral (narrative)No reason for [facility] Phone: Summary Purpose Family [...] Will No February 08 8:58am Power of Case Management Coordinator No February 08, 2019 8:58am Advance Directive Response Recorded Date/ Time Advance Directives No February 08, 2019 7:58am Living Will No February 08 7:58am Power of Case Management Coordinator No February 08, 2019 7:58am Advance Directive Response Recorded Date/ Time Advance Directives No February 7:35am Living Will No February 18 7:35am Power of Case Management Coordinator No February 18, 2022 7:35am Advance Directive Response Recorded Date/ Time Advance Directives No February 8:35am Living Will No February 18 8:35am Power of Case Management Coordinator No February 18, 2022 8:35am Advance Directive Response Recorded Date/ Time Advance Directives No February 8:35am Living Will No June 23, 2023 6:27pm Power of Case Management Coordinator No June 22 6:27pm Advance Directive Response [...] THROAT July 22, 2024 7:58am EMPLOYEE COVID/ [facility] July 22, 2024 8:09a m Chief Complaint Admit Date 2 ORDERING AKILAH July 14, 2024 7:14am COUGH, FEVER LAST NIGHT, SORE THROAT July 22, 2024 7:58am EMPLOYEE [employer]/ [email or web address] July 22, 2024 8:09a m 1 Y [...] SORE THROAT July 22, 2024 7:58am EMPLOYEE [employer]/ [email or web address] July 22, 2024 8:09a m 1 Y [...] section and content) DATE CREATED AUTHOR 09/01/2017 [facility] ([place]) DATE CREATED AUTHOR AUTHOR'S ORGANIZ ATION 01/02/2025 [facility] Goals (unrecognized section and content) [...] Active Member Role Status Dates Marilyn Gordon CHEMISTRY LECTURER, CHEMISTRY LECTURER-C Family Provider Active Marilyn Gordon CHEMISTRY LECTURER, CHEMISTRY LECTURER-C Primary Care Provider Active Team Status: Inactive Member Role Status Dates Marilyn Gordon CHEMISTRY LECTURER, CHEMISTRY LECTURER-C Primary Care Provider, Referri ng Provider Active Evelio Foss CHEMISTRY LECTURER, CHEMISTRY LECTURER-C Attending Provider Active Team Status: Active Member Role Status Dates Marilyn Gordon CHEMISTRY LECTURER, CHEMISTRY LECTURER-C Primary Care Provider Active Dr. Neftali Asencio MD Attending Provider Active Evelio Foss CHEMISTRY LECTURER, CHEMISTRY LECTURER-C Referring Provider Active Team Status: Active Member Role Status Dates Marilyn Gordon CHEMISTRY LECTURER, CHEMISTRY LECTURER-C Primary Care Provider Active Evelio Foss CHEMISTRY LECTURER, CHEMISTRY LECTURER-C Other Provider Active Dr. Dixie Arita MD Attending Provider Activ e Team Status: Active Member Role Status Dates Marilyn Gordon CHEMISTRY LECTURER, CHEMISTRY LECTURER-C Primary Care Provider Active Dr. Dixie Arita MD Other Provider Active Evelio Foss CHEMISTRY LECTURER, CHEMISTRY LECTURER-C Attending Provider Active Team Status: Active Member Role Status Dates Marilyn Gordon CHEMISTRY LECTURER, CHEMISTRY LECTURER-C Primary Care Provider Active Dr. Dixie Arita MD Attending Provider Activ e Evelio Foss CHEMISTRY LECTURER, CHEMISTRY LECTURER-C Referring Provider Active Team Status: Active Member Role Status Dates Marilyn Gordon CHEMISTRY LECTURER, CHEMISTRY LECTURER-C Primary Care Provider Active Dr. Dixie Arita MD Attending Provider, Refe rring Provider Active Team Status: Active Member Role Status Dates Marilyn Gordon CHEMISTRY LECTURER, CHEMISTRY LECTURER-C Primary Care Provider Active Dr. Neftali Asencio MD Attending Provider Active Team Status: Inactive Member Role Status Dates Marilyn Gordon CHEMISTRY LECTURER, CHEMISTRY LECTURER-C Primary Care Provider Active Evelio Foss CHEMISTRY LECTURER, CHEMISTRY LECTURER-C Attending Provider Active Team Status: Inactive Member Role Status Dates Marilyn Gordon NP, CHEMISTRY LECTURER-C Primary Care Provider Active Dr. Dixie Arita MD Attending Provider, Refe rring Provider Active Team Status: Inactive Member Role Status Dates Marilyn Gordon CHEMISTRY LECTURER, CHEMISTRY LECTURER-C Primary Care Provider Active Evelio Jael Pipo CHEMISTRY LECTURER, CHEMISTRY LECTURER-C Attending Provider, Referring Pro vider Active Team Status: Inactive Member Role Status Dates Marilyn Gordon CHEMISTRY LECTURER, CHEMISTRY LECTURER-C Primary Care Provider Active Dr. Dixie Arita MD Attending Provider Activ e Team Status: Inactive Member Role Status Dates Marilyn Gordon CHEMISTRY LECTURER, CHEMISTRY LECTURER-C Primary Care Pro vider, Attending Provider, Referring Provider Active Team Status: Active Member Role Status Dates Marilyn Gordon CHEMISTRY LECTURER, CHEMISTRY LECTURER-C Primary Care Provider Active Dr. Neftali Asencio MD Attending Provider Active Dr. Dixie Arita MD Referring Provider Activ e Team Status: Inactive Member Role Status Dates Marilyn Gordon CHEMISTRY LECTURER, CHEMISTRY LECTURER-C Primary Care Provider, Referri ng Provider Active Robert Monroy PA, PA Attending Provider Active Team Status: Inactive Member Role Status Dates Marilyn Gordon CHEMISTRY LECTURER, CHEMISTRY LECTURER-C Primary Care Provider, Referri ng Provider Active Dr. Mt Varela MD Attending Provider Active Team Status: Inactive Member Role Status Dates Marilyn Gordon CHEMISTRY LECTURER, CHEMISTRY LECTURER-C Primary Care Provider, Attendi ng Provider Active Dr. Mt Varela MD Referring Provider Active Team Status: Inactive Member Role Status Dates Marilyn Gordon CHEMISTRY LECTURER, CHEMISTRY LECTURER-C Primary Care Provider Active Dr. Jere Zhu DO Emergency Provider Active Team Status: Inactive Member Role Status Dates Marilyn Gordon CHEMISTRY LECTURER, CHEMISTRY LECTURER-C Primary Care Provider Active Start: July 14, [...] Active Member Role Status Dates Marilyn Gordon CHEMISTRY LECTURER, CHEMISTRY LECTURER-C Primary Care Provider Active Start: July 22, 2024 Marilyn Gordon CHEMISTRY LECTURER, CHEMISTRY LECTURER-C Referring Provider Active Start: July 22, 2024 Sylvain SEVILLA, PA Attending Provider Active Sta rt: July 22, 2024 Team Status: Inactive Member Role Status Dates Marilyn Gordon CHEMISTRY LECTURER, CHEMISTRY LECTURER-C Primary Care Provider Active Start: July 22, 2024 End: July 22, 2024 Marilyn Gordon CHEMISTRY LECTURER, CHEMISTRY LECTURER-C Referring Provider Active Start: July 22, 2024 End: July 22, 2024 Sylvain SEVILLA, PA Attending Provider Active Sta rt: July 22, 2024 End: July 22, 2024 Team Status: Active Member Role/Relationship Status Dates Marilyn Gordon CHEMISTRY LECTURER, CHEMISTRY LECTURER-C Family Provider Active Marilyn Gordon CHEMISTRY LECTURER, CHEMISTRY LECTURER-C Primary Care Provider Active Team Status: Inactive Member Role/Relationship Status Dates Marilyn Gordon CHEMISTRY LECTURER, CHEMISTRY LECTURER-C Primary Care Provider Active Start: July 14, [...] Inactive Member Role/Relationship Status Dates Marilyn Gordon CHEMISTRY LECTURER, CHEMISTRY LECTURER-C Primary Care Provider Active Start: July 22, 2024 End: July 22, 2024 Marilyn Gordon CHEMISTRY LECTURER, CHEMISTRY LECTURER-C Referring Provider Active Start: July 22, 2024 End: July 22, 2024 Sylvain SEVILLA, PA Attending Provider Active Sta rt: July 22, 2024 End: July 22, 2024 Team Status: Inactive Member Role/Relationship Status Dates Marilyn Gordon CHEMISTRY LECTURER, CHEMISTRY LECTURER-C Primary Care Provider Active Start: July 22, 2024 End: July 22, 2024 Marilyn Gordon CHEMISTRY LECTURER, CHEMISTRY LECTURER-C Referring Provider Active Start: July 22, 2024 End: July 22, 2024 Sylvain SEIVLLA, PA Attending Provider Active Sta rt: July 22, 2024 End: July 22, 2024 Team Status: Inactive Member Role/Relationship Status Dates Marilyn Gordon CHEMISTRY LECTURER, CHEMISTRY LECTURER-C Primary Care Provider Active Start: October 20, 2024 End: October 20, 2024 Marilyn Gordon CHEMISTRY LECTURER, CHEMISTRY LECTURER-C Referring Provider Active Start: October 20, 2024 End: October 20, 2024 Radha Mello NP, CHEMISTRY LECTURER-C Attending Provider Active Start: October 20, 2024 End: October 20, 2024 Team Status: Inactive Member Role/Relationship Status Dates Marilyn Gordon CHEMISTRY LECTURER, CHEMISTRY LECTURER-C Primary Care Provider Active Start: October 21, 2024 End: October 21, 2024 Marilyn Gordon CHEMISTRY LECTURER, CHEMISTRY LECTURER-C Attending Provider Active Start: October 21, 2024 End: October 21, 2024 Marilyn Gordon CHEMISTRY LECTURER, CHEMISTRY LECTURER-C Referring Provider Active Start: October 21, 2024 End: October 21, 2024 Team Status: Active Member Role/Relationship Status Dates Marilyn Gordon CHEMISTRY LECTURER, CHEMISTRY LECTURER-C Primary Care Provider Active Start: October 21, 2024 Health Risk Assessment Attending Provider Active Start: October 21, 2024 Health Risk Assessment Referring Provider Active Start: October 21, 2024 Team Status: Active Member Role/Relationship Status Dates Marilyn Gordon CHEMISTRY LECTURER, CHEMISTRY LECTURER-C Primary care physician Active Team Status: Inactive Member Role/Relationship Status Dates Marilyn Gordon CHEMISTRY LECTURER, CHEMISTRY LECTURER-C Primary care physician Active Start: October 20, 2024 End: October 20, 2024 Marilyn Gordon CHEMISTRY LECTURER, CHEMISTRY LECTURER-C Referring Provider Active Start: October 20, 2024 End: October 20, 2024 Radha Mello CHEMISTRY LECTURER, CHEMISTRY LECTURER-C Attending physician Active Start: October 20, 2024 End: October 20, 2024 Team Status: Inactive Member Role/Relationship Status Dates Marilyn Gordon CHEMISTRY LECTURER, CHEMISTRY LECTURER-C Primary care physician Active Start: October 21, 2024 End: October 21, 2024 Marilyn Gordon CHEMISTRY LECTURER, CHEMISTRY LECTURER-C Attending physician Active Start: October 21, 2024 End: October 21, 2024 Marilyn Gordon CHEMISTRY LECTURER, CHEMISTRY LECTURER-C Referring Provider Active Start: October 21, 2024 End: October 21, 2024 Team Status: Active Member Role/Relationship Status Dates Marilyn Gordon NP, CHEMISTRY LECTURER-C Primary care physician Active Start: October 21, 2024 Health Risk Assessment Attending physician Active Start: October 21, 2024 Health Risk Assessment Referring Provider Active Start: October 21, 2024 Team Status: Inactive Member Role/Relationship Status Dates Marilyn Gordon NP, CHEMISTRY LECTURER-C Primary care physician Active Start: November 16, 2024 End: November 16, 2024 Marilyn Gordon NP, CHEMISTRY LECTURER-C Attending physician Active Start: November 16, 2024 End: November 16, 2024 Marilyn Gordon CHEMISTRY LECTURER, CHEMISTRY LECTURER-C Referring Provider Active Start: November 16, 2024 End: November 16, 2024 Team Status: Active Member Role/Relationship Status Dates Marilyn Gordon NP, CHEMISTRY LECTURER-C Primary care physician Active Start: November 23, 2024 Marilyn Gordon NP, CHEMISTRY LECTURER-C Attending physician Active Start: November 23, 2024 Marilyn Gordon NP, CHEMISTRY LECTURER-C Referring Provider Active Start: November 23, 2024 Team Status: Inactive Member Role/Relationship Status Dates Marilyn Gordon NP CHEMISTRY LECTURER-C Primary care physician Active Start: November 23, 2024 End: November 23, 2024 Marilyn Gordon NP CHEMISTRY LECTURER-C Attending physician Active Start: November 23, 2024 End: November 23, 2024 Marilyn Gordon NP, CHEMISTRY LECTURER-C Referring Provider Active Start: November 23, 2024 [...] BE BASED ON THE PRIMARY CLINICAL RECORDS. [employer] provides no warranty or guarantee of the accuracy or completeness of information in this document.
[2025-01-08] MEDS: 0.9% Normal Saline (1000mL) 1,000 ML 75 ML IV (16:02)
[2025-01-08 17:09] LABS: Troponin T High Sens 2 HR 11 ng/L (<=22)
[2025-01-08 18:58] LABS: Troponin T High Sens 4 HR 9 ng/L (<=22)
[2025-01-09 02:00] VITALS: BP 154/83; PULSE 60; RESP 16; TEMP 36.6; O2SAT 98
[2025-01-09 05:55] VITALS: BP 156/88; PULSE 58; RESP 18; TEMP 36.9; O2SAT 99
--- NOTE | 2025-01-09 05:55 | MRI_ITS ---
PROCEDURE: BRAIN WITHOUT CONTRAST 01/09/2025 REASON FOR EXAM: SUSPECTED STROKE TECHNIQUE: Procedure Code: MRIBR Modality: MR Procedure: BRAIN WITHOUT CONTRAST Multiplanar and multisequence images were obtained. COMPARISON: January 08, 2025 CT FINDINGS: Brain: On either side of the left central sulcus involving the cortex of the precentral gyrus and postcentral gyrus there is evidence of some abnormal signal on diffusion-weighted imaging. The ADC map shows some restricted diffusion there consistent with acute ischemia. Standard T2 and inversion recovery images show T2 prolongation in the periventricular white matter with patchy foci of T2 prolongation in the deep white matter and subcortical white matter of the frontal and parietal lobes. No large vessel, territorial ischemia seen. No hemorrhage is seen. Ventricles: No hydrocephalus. Major Intracranial Vessels: Correlate with recent CT angiogram of 1 day prior. Flow voids are unremarkable. Sinuses: Mucosal thickening ethmoid sinuses. Mastoids: Partial opacification of some of the mastoid air cells. MRI/Brain without Contrast IMPRESSION: 1. Mild changes of acute ischemia involving the left precentral and postcentra l gyrus. 2. Moderate changes of chronic microvascular ischemia. Mild volume loss. Stroke Alert: Ischemia The critical findings in the findings and impression above were relayed directl y by me by telephone to MD Lauren on 01/09/2025 at 10:45 am with readback verification. Reading Location: [id number]
--- NOTE | 2025-01-09 05:55 | ECHOCS_ITS ---
Reason For Study Reason For Study: CVA Procedure This was a 2D Doppler, Color Flow transthoracic echocardiogram. The study was technically difficult. Contrast injection was performed. Exam performed portable in patient room. Left Ventricle Normal LV size. Mild concentric left ventricular hypertrophy. Left ventricular systolic function is normal. The left ventricular ejection fraction is 60 %. Stage 1 diastolic dysfunction. No regional wall motion abnormalities noted. Right Ventricle Normal RV size. Normal systolic function. Atria The left atrium is mildly enlarged. Normal right atrium. No doppler evidence for ASD. Mitral Valve Normal mitral valve. Trivial mitral valve insufficiency. Tricuspid Valve Normal tricuspid valve. Trivial tricuspid valve insufficiency. Aortic Valve Trisinus/trileaflet aortic valve. Trivial aortic valve insufficiency. Pulmonic Valve Normal pulmonic valve. Trivial pulmonic valve insufficiency. Great Vessels Normal sized aortic root. Pericardium/Pleural No pericardial effusion. Medication Diluted definity 4ml given slow IV push to enhance endocardial definition. MMode/2D Measurements & Calculations LVIDd: 4.9 cm IVSd: 1.1 cm Ao root diam: 3.8 cm LVIDs: 3.1 cm LVPWd: 1.2 cm FS: 36.2 % LAV(MOD-bp): 53.5 ml LA A4 area: 20.6 cm2 LA dimension(2D): 4.1 cm LAV(MOD-bp) Indexed: 20.7 ml/m2 LAV(MOD-sp2): 42.7 ml LAV(MOD-sp4): 54.1 ml RA A4 area: 13.1 cm2 Time Measurements MV dec time: 0.21 sec Doppler Measurements & Calculations MV E max francisco: 88.1 cm/sec Lat Peak E' Francisco: 12.0 cm/sec Med Peak E' Francisco: 12.6 cm/sec MV A max francisco: 64.6 cm/sec E/E' lat: 7.3 E/E' med: 7.0 MV E/A: 1.4 MV V2 max: 95.7 cm/sec MV dec slope: 425.1 cm/sec2 Ao V2 max: 120.5 cm/sec MV max P.7 mmHg Ao max P.8 mmHg MV V2 mean: 52.7 cm/sec Ao V2 mean: 78.4 cm/sec MV mean P.3 mmHg Ao mean P.9 mmHg MV V2 VTI: 33.0 cm Ao V2 VTI: 25.4 cm AV (velocity ratio): 1.0 LV V1 max: 106.7 cm/sec PA V2 max: 144.4 cm/sec TR max francisco: 236.6 cm/sec LV V1 max P.6 mmHg PA V2 mean: 98.8 cm/sec TR max P.4 mmHg LV V1 mean P.0 mmHg LV V1 mean: 83.1 cm/sec LV V1 VTI: 26.0 cm ECHO/Echo Complete W/ Contrast Interpretation Summary The left ventricular ejection fraction is 60 %. Stage 1 diastolic dysfunction. Mild concentric left ventricular hypertrophy. The left atrium is mildly enlarged. Structually normal valves. The study was technically difficult. Contrast injection was performed. Ordering Physician: Benji Blanton Referring Physician: MATT GORDON Performed By: Rosa Elena Rose RCS
[2025-01-09 07:23] LABS: Hematocrit 40.7 % (40-54); Hemoglobin 14.0 g/dL (13.0-16.5); Immature Granulocytes Count 0.030 X10^3/uL (0.0-0.0); Mean Corp Hgb Conc 34.4 g/dL (32-36); Mean Corpuscular Volume 94.7 fL (80-94); Mean Platelet Vol. 10.3 fl (6.2-12.0); NRBC Flagged by Analyzer 0 % (0-5); Platelet Count 245 K/mm3 (150-450); RBC Distribution Width CV 13.5 % (11.6-14.6); RBC Distribution Width SD 46.7 fl (35.1-43.9); Red Blood Count 4.30 M/mm3 (4.6-6.2); White Blood Count 8.5 K/mm3 (4.4-11.0)
--- NOTE | 2025-01-09 07:41 | PCM.PN.HOSP ---
Reason for Visit Chief Complaint: Right upper extremity numbness and speech abnormality, strokelike symptoms today Subjective Subjective Patient is a 54-year-old gentleman who presented with right upper extremity numbness in addition to dysarthria and problems with fine motor skills involving the right hand Objective Data Objective Data Vital Signs: Vital Signs Temp Pulse Resp BP Pulse Ox O2 Del Method 98.4 F 58 L 18 156/88 H 99 Room Air 01/09/25 05:55 01/09/25 05:55 01/09/25 05:55 01/09/25 05:55 01/09/25 05:55 01/09/25 05:55 Oxygen Delivery Method Room Air Weight: 153.7 kg Body Mass Index (BMI) 50.0 Intake & Output: Intake and Output for Last 24 Hours 01/07/25 01/08/25 01/09/25 23:59 22:59 23:59 Intake Total 240 / 240 895 / 895 Balance 240 / 240 895 / 895 Lab / Micro Data 01/09/25 06:55 01/09/25 06:55 Labs: Laboratory Results - last 24 hr 01/08/25 13:15: WBC 9.3, RBC 4.35 L, Hgb 13.8, Hct 41.0, MCV 94.3 H, MCH 31.7, MCHC 33.7, RDW Std Deviation 45.7 H, RDW Coeff of Loree 13.3, Plt Count 178, MPV 10.4, Immature Gran % (Auto) 0.500, Neut % (Auto) 69.1, Lymph % (Auto) 19.2, [place] % (Auto) 9.5, Eos % (Auto) 1.2, Baso % (Auto) 0.5, Absolute Neuts (auto) 6.4, Absolute Lymphs (auto) 1.79, Nucleated RBC % 0, Platelet Estimate ADEQUATE, PT 12.7, INR 0.9, APTT Cancelled, Sodium 135, Potassium 4.3, Chloride 104, Carbon Dioxide 20.6 L, Anion Gap 10, BUN 14, Creatinine 1.05, Estim Creat Clear Calc 117.75, Est GFR (MDRD) Non-Af 84, BUN/Creatinine Ratio 13.0, Glucose 104 H, Calcium 8.9, Troponin T High Sens 11 01/08/25 14:08: APTT 21.7 L 01/08/25 16:30: Troponin T Hi Sens 2 Hr 11 01/08/25 18:02: POC Glucose 113 H 01/08/25 18:29: Troponin T Hi Sens 4Hr 9 01/09/25 05:49: POC Glucose 106 01/09/25 06:55: WBC 8.5, RBC 4.30 L, Hgb 14.0, Hct 40.7, MCV 94.7 H, MCH 32.6 H, MCHC 34.4, RDW Std Deviation 46.7 H, RDW Coeff of Loree 13.5, Plt Count 245, MPV 10.3, Immature Gran % (Auto) 0.400, Neut % (Auto) 73.1 H, Lymph % (Auto) 18.9 L, [place] % (Auto) 6.5, Eos % (Auto) 0.9, Baso % (Auto) 0.2, Absolute Neuts (auto) 6.2, Absolute Lymphs (auto) 1.61, Nucleated RBC % 0 Radiography Diagnostic Testing: Radiology Impression Brain CT 01/08/25 12:41 IMPRESSION: No acute abnormality. The given the history of neuro deficit, and the concern for stroke, MRI with diffusion-weighted imaging is recommended. Reading Location: [facility] Head/Neck CTA 01/08/25 12:54 IMPRESSION: Normal CTA head/neck. Reading Location: [facility] Physical Exam Narrative GENERAL: cooperative HEENT: Atraumatic; normocephalic EYES; Anicteric, Normal Conjunctiva NECK; supple, normal thyroid, RESPIRATORY: Diminished to auscultation CARDIOVASCULAR: Regular S1 S2, GI: soft, normoactive bowel sounds, : No Renal angle tenderness; EXTREMITIES: No edema, no clubbing, MUSCULOSKELETAL: no muscle wasting NEURO: Awake; no lateralizing signs. SKIN: No Rash PSYCH; Flat affect Assessment & Plan Assessment/Plan (1) TIA (transient ischemic attack): PLAN: Plan Patient is a 54-year-old gentleman who presented with right upper extremity and facial numbness in addition to dysarthria and problems with fine motor skills involving the right hand 1. Suspected CVA ? Patient presented with right upper extremity numbness admitted to a monitored bed for stroke workup. As part of his evaluation 2D echo, lipid panel, MRI as well as neurochecks ordered. Consult was placed to [facility]. Patient was started on antiplatelet as well as statin therapy 2. Acute hypertensive urgency ? Patient presented with markedly elevated blood pressure of 185/100. Admitted to monitored bed permissive hypertension protocol followed in view of the fact the patient was admitted for possible stroke 3. Dyslipidemia ?Patient is on statin therapy, continued at home dose 4. Morbid obesity (class III obesity) with BMI of 50.0 ? Complicating care weight loss advised 5. Obstructive sleep apnea ? Patient is on BiPAP at night consistent use encouraged 6. DVT prophylaxis ? On enoxaparin Time spent in the patient's overall evaluation,decision-making process, review of diagnostic data, adjustment of management, discussion with other providers, nursing nursing and ancillary staff involved in patient's care documentation, 38 Minutes Charges/Coding Visit Charges Inpatient E&M: 37142 Subs Hosp L2 NIHSS NIHSS Nursing Documentation NIHSS Nursing Documentation: NIHSS: Ischemic Stroke/TIA Start: 01/08/25 14:50 Text: For ICU Patients: NIH sroke scale at Status: Complete presentation and every 2 hours or with change in RN caregiver Freq: [id number] Protocol: Activity Type Activity Date Activity User E-sign Co-sign Detail Recorded Client Recorded Date Recorded By Document 01/08/25 18:00 [email or web address] [id number] 01/08/25 18:07 TSTIKA 01/08/25 18:00 NIH Stroke Scale [NIHSS] A score of 0 is normal or asymptomatic . Total possible score is 42. Inpatient: RN or Physician to activate a stroke alert for onset of new stroke symptoms or with NIHSS increase >/= 3 points. Following change in neurological status, NIHSS will be performed per physician order or more frequently PRN. -Total 3 Query Text:A score of 0 is normal or asymptomatic. Total possible score is 42 . ED: Notify Physician for NIHSS increase by > / = 3 points. Inpatient: RN or Physician to activate a stroke alert for NIHSS increase of > / = 3 points. Coma Scale [Assess] -Eye Opening Spontaneous -Motor Obeys Commands -Verbal Oriented [Total] -Coma Scale Total 15 NIHSS: Ischemic Stroke/TIA Start: 01/08/25 14:50 Text: For PCU Patients: NIH and Neuro Check every 4 Status: Active hours, PRN and with change in RN caregiver. Freq: [id number] Protocol: Activity Type Activity Date Activity User E-sign Co-sign Detail Recorded Client Recorded Date Recorded By Document 01/09/25 05:55 AML [id number] 01/09/25 05:55 AML 01/09/25 05:55 NIH Stroke Scale [NIHSS] A score of 0 is normal or asymptomatic . Total possible score is 42. Inpatient: RN or Physician to activate a stroke alert for onset of new stroke symptoms or with NIHSS increase >/= 3 points. Following change in neurological status, NIHSS will be performed per physician order or more frequently PRN. -1a. Level of Consciousness 0 - Alert; keenly responsive -1b. LOC Questions 0 - Answers BOTH questions correctly -1c. LOC Commands 0 - Performs BOTH tasks correctly -2. Best Gaze 0 - Normal -3. Visual 0 - No visual loss -4. Facial Palsy 0 - Normal symmetrical movements -5a. Left Arm 0 - No drift; arm holds 90 ( or 45) degrees for full 10 seconds -5b. Right Arm 0 - No drift; arm holds 90 ( or 45) degrees for full 10 seconds -6a. Left Leg 0 - No drift; leg holds 30- degree position for full 5 seconds -6b. Right Leg 0 - No drift; leg holds 30- degree position for full 5 seconds -7. Limb Ataxia 0 - Absent -8. Sensory 1 - Mild-to- moderate sensory loss; -9. Best Language 0 - No aphasia; normal -10. Dysarthria 0 - Normal -11. Extinction and Inattention 0 - No abnormality -Total 1 Query Text:A score of 0 is normal or asymptomatic. Total possible score is 42 . ED: Notify Physician for NIHSS increase by > / = 3 points. Inpatient: RN or Physician to activate a stroke alert for NIHSS increase of > / = 3 points. Coma Scale [Assess] -Eye Opening Spontaneous -Motor Obeys Commands -Verbal Oriented [Total] -Coma Scale Total 15
[2025-01-09 08:08] LABS: Anion Gap 10 (5-15); BUN 13 mg/dL (4-19); BUN/Creat Ratio 12.3 RATIO (10-20); Calcium,Total 9.0 mg/dL (7.6-11.0); Carbon Dioxide 24.4 mmol/L (21.0-32.0); Chloride 105 mmol/L (98-108); Cholesterol 150 mg/dL (<=200); Estimated Creatinine Clearance 119.09 ml/min (50-250); Glucose 105 mg/dL (70-99); Low Density Lipoprotein Calc. 88 mg/dL; Potassium 4.2 mmol/L (3.3-5.1); Triglycerides 158 mg/dL; Very Low Density Lipoprotein 32 mg/dL (5-40); cholesterol:hdl ratio screen 4.35
[2025-01-09 09:45] VITALS: BP 154/97; PULSE 66; RESP 18; TEMP 36.3; O2SAT 99
--- NOTE | 2025-01-09 10:48 | STROKE.CONS ---
Assessment and Plan: Stroke Assessment/Plan KAMALA BRASWELL, is a 54 M with PMH of CORBIN (Nocturnal BiPAP), Morbid Obesity, HLD, who presents with episode of dysarthria, R face and arm numbness, and difficulty with fine motor skills of the R hand. He was admitted for ischemic workup. Patient also presented with markedly elevated SBP of 185/100. Stroke RF include HTN, HLD, CORBIN. CTH non acute. CTA without proximal LVO or high grade focal critical stenosis. MRI with acute ischemia in the L precentral/postcentral gyrus. A1C 5.8. LDL 88. TTE with EF 60%, mild concentric LVH, and LA mildy enlarged. Neurological examination shows NIHSS 1 for facial numbness but continues to report his speech is not completely at baseline and fine motor dexterity in the R hand, although improved, is not at his baseline, Neuroimaging shows L precentral/postcentral gyrus acute ischemia. Etiology: Cryptogenic, stroke risk factors include HTN, HLD, CORBIN, and borderline pre-diabetes, obesity - ASA 81 mg daily + Plavix 300 mg today followed by 75 mg daily for 21 days, followed by ASA 81 mg monotherapy - Atorvastatin 80 mg qhs - SBP goal normotension - Vascular risk factor modification - diet, exercise, lifestyle modification, antiplatelet and statin therapy as recommended, normotension, and normoglycemia - hall monitor at discharge to rule out pAFIB (mildly enlarged LA, reports heart fluttering at times), continue tele while admitted. If pAFIB is found would recommend discontinuation of DAPT and instead plan for anticoagulation monotherapy with cardiology followup. - Follow up with cardiology and neurology in 4-6 weeks after monitor complete. Patient requested to follow up locally with both neurology and cardiology. HPI Consult Data Date of Consult: 01/09/25 HPI Narrative HPI Narrative: KAMALA BRASWELL, is a 54 M with PMH of CORBIN (Nocturnal BiPAP), Morbid Obesity, HLD, who presents with episode of dysarthria, R face and arm numbness, and difficulty with fine motor skills of the R hand. He was admitted for ischemic workup. Patient also presented with markedly elevated SBP of 185/100. Stroke RF include HTN, HLD, CORBIN. CTH non acute. CTA without proximal LVO or high grade focal critical stenosis. MRI with acute ischemia in the L precentral/postcentral gyrus. A1C 5.8. LDL 88. [facility] Medical History Hypertension Home Medications ?Medication ?Instructions ?Recorded ?Last Taken ?Type aspirin 81 mg tablet,delayed 81 mg PO DAILY 01/08/25 Unknown History release (Adult Aspirin Regimen) losartan 100 mg tablet 100 mg PO DAILY 01/08/25 Unknown History amlodipine 10 mg tablet 10 mg PO DAILY #90 tabs 01/09/25 Unknown Rx atorvastatin 80 mg tablet 80 mg PO QHS #90 tabs 01/09/25 Unknown Rx clopidogrel 75 mg tablet 75 mg PO DAILY #21 tabs 01/09/25 Unknown Rx hydrochlorothiazide 12.5 mg tablet 12.5 mg PO DAILY #90 tabs 01/09/25 Unknown Rx Allergy/AdvReac Type Severity Reaction Status Date / Time No Known Allergies Allergy Verified 01/08/25 14:49 Social History housing: house Smoking Status: Never smoker Vital Signs Vital Signs Vital Signs: 01/08/25 12:38 01/08/25 12:51 01/08/25 12:51 Temperature 98.3 F Temperature Source Oral Pulse Rate 73 73 Pulse Strength Respiratory Rate 16 18 Respiratory Effort Respiratory Depth Respiratory Pattern Blood Pressure 185/100 H 185/100 H Blood Pressure Mean 128 128 Blood Pressure Source Blood Pressure Position Blood Pressure Location Pulse Ox 99 100 96 Oxygen Delivery Method Room Air Room Air 01/08/25 12:51 01/08/25 13:29 01/08/25 13:30 Temperature Temperature Source Pulse Rate 73 67 77 Pulse Strength Respiratory Rate 18 18 20 H Respiratory Effort Respiratory Depth Respiratory Pattern Blood Pressure 185/100 H 147/87 H 147/87 H Blood Pressure Mean 128 107 107 Blood Pressure Source Blood Pressure Position Blood Pressure Location Pulse Ox 100 99 100 Oxygen Delivery Method 01/08/25 14:08 01/08/25 14:50 01/08/25 15:20 Temperature 98.2 F 98.2 F Temperature Source Oral Pulse Rate 77 80 Pulse Strength Respiratory Rate 20 H 18 Respiratory Effort Respiratory Depth Respiratory Pattern Blood Pressure 147/87 H 187/98 H Blood Pressure Mean 107 127 Blood Pressure Source Monitor Blood Pressure Position Supine Blood Pressure Location Left Forearm Pulse Ox 100 98 Oxygen Delivery Method Room Air Room Air 01/08/25 18:00 01/08/25 22:00 01/08/25 22:00 Temperature 98.2 F 97.1 F L Temperature Source Oral Temporal Pulse Rate 64 58 L Pulse Strength Weak (1+) Respiratory Rate 18 16 Respiratory Effort Respiratory Depth Respiratory Pattern Blood Pressure 160/82 H 142/84 H Blood Pressure Mean 108 103 Blood Pressure Source Monitor Blood Pressure Position Sitting Blood Pressure Location Left Forearm Pulse Ox 98 100 Oxygen Delivery Method Room Air Room Air 01/09/25 02:00 01/09/25 05:55 01/09/25 08:05 Temperature 97.8 F 98.4 F Temperature Source Temporal Temporal Pulse Rate 60 58 L Pulse Strength Normal (2+) Respiratory Rate 16 18 Respiratory Effort Respiratory Depth Respiratory Pattern Blood Pressure 154/83 H 156/88 H Blood Pressure Mean 106 110 Blood Pressure Source Blood Pressure Position Blood Pressure Location Pulse Ox 98 99 Oxygen Delivery Method CPAP Room Air 01/09/25 08:05 01/09/25 09:45 Temperature 97.3 F L Temperature Source Temporal Pulse Rate 66 Pulse Strength Respiratory Rate 18 Respiratory Effort Normal Non-Labored Respiratory Depth Normal Respiratory Pattern Normal Blood Pressure 154/97 H Blood Pressure Mean 116 Blood Pressure Source Monitor Blood Pressure Position Sitting Blood Pressure Location Left Forearm Pulse Ox 99 Oxygen Delivery Method Room Air Room Air Weight Weight: 153.7 kg Body Mass Index (BMI) 50.0 EEG Results Procedure Details EEG Procedure Details: KAMALA GARSIA MICHAELLE Christiansen is a 54 year old M with a past medical history of , who presents for evaluation of Electroencephalogram on DATE at TIME Lab / Micro Data 01/09/25 06:55 01/09/25 06:55 Labs: Laboratory Results - last 24 hr 01/08/25 13:15: WBC 9.3, RBC 4.35 L, Hgb 13.8, Hct 41.0, MCV 94.3 H, MCH 31.7, MCHC 33.7, RDW Std Deviation 45.7 H, RDW Coeff of Loree 13.3, Plt Count 178, MPV 10.4, Immature Gran % (Auto) 0.500, Neut % (Auto) 69.1, Lymph % (Auto) 19.2, [place] % (Auto) 9.5, Eos % (Auto) 1.2, Baso % (Auto) 0.5, Absolute Neuts (auto) 6.4, Absolute Lymphs (auto) 1.79, Nucleated RBC % 0, Platelet Estimate ADEQUATE, PT 12.7, INR 0.9, APTT Cancelled, Sodium 135, Potassium 4.3, Chloride 104, Carbon Dioxide 20.6 L, Anion Gap 10, BUN 14, Creatinine 1.05, Estim Creat Clear Calc 117.75, Est GFR (MDRD) Non-Af 84, BUN/Creatinine Ratio 13.0, Glucose 104 H, Calcium 8.9, Troponin T High Sens 11 01/08/25 14:08: APTT 21.7 L 01/08/25 16:30: Troponin T Hi Sens 2 Hr 11 01/08/25 18:02: POC Glucose 113 H 01/08/25 18:29: Troponin T Hi Sens 4Hr 9 01/09/25 05:49: POC Glucose 106 01/09/25 06:55: WBC 8.5, RBC 4.30 L, Hgb 14.0, Hct 40.7, MCV 94.7 H, MCH 32.6 H, MCHC 34.4, RDW Std Deviation 46.7 H, RDW Coeff of Loree 13.5, Plt Count 245, MPV 10.3, Immature Gran % (Auto) 0.400, Neut % (Auto) 73.1 H, Lymph % (Auto) 18.9 L, [place] % (Auto) 6.5, Eos % (Auto) 0.9, Baso % (Auto) 0.2, Absolute Neuts (auto) 6.2, Absolute Lymphs (auto) 1.61, Nucleated RBC % 0, Sodium 140, Potassium 4.2, Chloride 105, Carbon Dioxide 24.4, Anion Gap 10, BUN 13, Creatinine 1.03, Estim Creat Clear Calc 119.09, Est GFR (MDRD) Non-Af 86, BUN/Creatinine Ratio 12.3, Glucose 105 H, Hemoglobin A1c 5.8 H, Calcium 9.0, Triglycerides 158, Cholesterol 150, LDL Cholesterol, Calc 88, VLDL Cholesterol 32, HDL Cholesterol 35 L, Cholesterol/HDL Ratio 4.35, TSH 1.330 Imaging Radiology Impression Brain CT 01/08/25 12:41 IMPRESSION: No acute abnormality. The given the history of neuro deficit, and the concern for stroke, MRI with diffusion-weighted imaging is recommended. Reading [facility] Head/Neck CTA 01/08/25 12:54 IMPRESSION: Normal CTA head/neck. Reading [facility] Medications Active Medications Active Medications: Current Medications Generic Name Dose Route Start Last Admin Trade Name Freq PRN Reason Stop Dose Admin Acetaminophen 650 mg 01/08/25 14:50 Acetaminophen 325 Mg Tablet PO Q4H PRN PRN Pain 1-10 Or Fever>99.6 Aspirin 81 mg 01/09/25 08:00 Aspirin 81 Mg Tab.Chew PO BREAKFAST MARILYN Atorvastatin Calcium 80 mg 01/08/25 22:00 01/08/25 19:52 Atorvastatin Calcium 80 Mg Tablet PO 80 mg QHS MARILYN Administration Enoxaparin Sodium 40 mg 01/08/25 22:00 01/08/25 19:52 Enoxaparin 40 Mg/0.4 Ml Syringe SC 40 mg BID MARILYN Administration Hydralazine HCl 5 mg 01/08/25 14:50 Hydralazine 20 Mg/Ml Vial IV 01/09/25 14:50 Q30M PRN maintain BP parameters with HR <60 Labetalol HCl 10 - 20 mg 01/08/25 14:50 Labetalol 20 Mg/4 Ml Vial IV 01/09/25 14:50 Q10M PRN PRN maintain BP parameters with HR >/=60 Nitroglycerin 0.4 mg 01/08/25 14:50 Nitroglycerin (Inpatient Use) 0.4 Mg Tab.Subl SL Q5M PRN CARDIAC/CHEST PAIN Senna/Docusate Sodium 2 tablet 01/08/25 14:50 Senna/Docusate Sodium 1 Tablet PO BID PRN PRN Constipation Sodium Chloride 10 - 40 ml 01/08/25 15:03 0.9% Saline Lock 10 Ml Syringe IV UD PRN SALINE FLUSH NIHSS NIHSS Nursing Documentation NIHSS Nursing Documentation: NIHSS: Ischemic Stroke/TIA Start: 01/08/25 14:50 Text: For ICU Patients: NIH sroke scale at Status: Complete presentation and every 2 hours or with change in RN caregiver Freq: [id number] Protocol: Activity Type Activity Date Activity User E-sign Co-sign Detail Recorded Client Recorded Date Recorded By Document 01/08/25 18:00 GEE [id number] 01/08/25 18:07 [email or web address] 01/08/25 18:00 NIH Stroke Scale [NIHSS] A score of 0 is normal or asymptomatic . Total possible score is 42. Inpatient: RN or Physician to activate a stroke alert for onset of new stroke symptoms or with NIHSS increase >/= 3 points. Following change in neurological status, NIHSS will be performed per physician order or more frequently PRN. -Total 3 Query Text:A score of 0 is normal or asymptomatic. Total possible score is 42 . ED: Notify Physician for NIHSS increase by > / = 3 points. Inpatient: RN or Physician to activate a stroke alert for NIHSS increase of > / = 3 points. Coma Scale [Assess] -Eye Opening Spontaneous -Motor Obeys Commands -Verbal Oriented [Total] -Coma Scale Total 15 NIHSS: Ischemic Stroke/TIA Start: 01/08/25 14:50 Text: For PCU Patients: NIH and Neuro Check every 4 Status: Active hours, PRN and with change in RN caregiver. Freq: [id number] Protocol: Activity Type Activity Date Activity User E-sign Co-sign Detail Recorded Client Recorded Date Recorded By Document 01/09/25 09:45 [email or web address] [id number] 01/09/25 09:46 [email or web address] 01/09/25 09:45 NIH Stroke Scale [NIHSS] A score of 0 is normal or asymptomatic . Total possible score is 42. Inpatient: RN or Physician to activate a stroke alert for onset of new stroke symptoms or with NIHSS increase >/= 3 points. Following change in neurological status, NIHSS will be performed per physician order or more frequently PRN. -1a. Level of Consciousness 0 - Alert; keenly responsive -1b. LOC Questions 0 - Answers BOTH questions correctly -1c. LOC Commands 0 - Performs BOTH tasks correctly -2. Best Gaze 0 - Normal -3. Visual 0 - No visual loss -4. Facial Palsy 0 - Normal symmetrical movements -5a. Left Arm 0 - No drift; arm holds 90 ( or 45) degrees for full 10 seconds -5b. Right Arm 0 - No drift; arm holds 90 ( or 45) degrees for full 10 seconds -6a. Left Leg 0 - No drift; leg holds 30- degree position for full 5 seconds -6b. Right Leg 0 - No drift; leg holds 30- degree position for full 5 seconds -7. Limb Ataxia 0 - Absent -8. Sensory 1 - Mild-to- moderate sensory loss; -9. Best Language 0 - No aphasia; normal -10. Dysarthria 0 - Normal -11. Extinction and Inattention 0 - No abnormality -Total 1 Query Text:A score of 0 is normal or asymptomatic. Total possible score is 42 . ED: Notify Physician for NIHSS increase by > / = 3 points. Inpatient: RN or Physician to activate a stroke alert for NIHSS increase of > / = 3 points. Coma Scale [Assess] -Eye Opening Spontaneous -Motor Obeys Commands -Verbal Oriented [Total] -Coma Scale Total 15 NIHSS 1a. Level of Consciousness: 0 - Alert; keenly responsive 1b. LOC Questions: 0 - Answers BOTH questions correctly 1c. LOC Commands: 0 - Performs BOTH tasks correctly 2. Best Gaze: 0 - Normal 3. Visual: 0 - No visual loss 4. Facial Palsy: 0 - Normal symmetrical movements 5a. Left Arm: 0 - No drift; arm holds 90 (or 45) degrees for full 10 seconds 5b. Right Arm: 0 - No drift; arm holds 90 (or 45) degrees for full 10 seconds 6a. Left Le - No drift; leg holds 30-degree position for full 5 seconds 6b. Right Le - No drift; leg holds 30-degree position for full 5 seconds 7. Limb Ataxia: 0 - Absent 8. Sensory: 1 - [id number] sensory loss; 9. Best Language: 0 - No aphasia; normal 10. Dysarthria: 0 - Normal 11. Extinction and Inattention: 0 - No abnormality Total: 1
[2025-01-09] MEDS: 0.9% Saline Lock 10 ML Syringe IV (10:57)
[2025-01-09 11:00] VITALS: BP 155/91; PULSE 77; RESP 18; O2SAT 100
[2025-01-09 12:08] VITALS: BMI 50.0
--- NOTE | 2025-01-09 12:48 | DS.PCM_ITS ---
Providers Date of Admission: 01/08/25 Date of Discharge: 01/09/25 Primary Care Physician: FRANCISCO Escalona Consultations 01/08/25 14:50 Consult: Tele-Neurology Routine Consulting Provider: [facility] Reason for Consult: Acute Ischemic Stroke/TIA EMERGENT Consult: No MD Notified: Yes Date Notified: 01/08/25 Time Notified: 14:10 Method of Notification: ED Physician Initiated Nursing Unit Staff Notify [facility] of Tele-Neurology Consult: Yes Reason For Visit: STROKE ALERT Diagnosis Discharge Diagnosis (1) TIA (transient ischemic attack): Status: Acute Code(s): G45.9 - Transient cerebral ischemic attack, unspecified (2) CVA (cerebral vascular accident): Status: Acute Code(s): I63.9 - Cerebral infarction, unspecified Plan Patient is a 54-year-old gentleman who presented with right upper extremity and facial numbness in addition to dysarthria and problems with fine motor skills involving the right hand 1. Acute CVA ? Patient presented with right upper extremity numbness admitted to a monitored bed for stroke workup. As part of his evaluation 2D echo, lipid panel, MRI as well as neurochecks ordered. Consult was placed to [facility]. Patient was started on antiplatelet as well as statin therapy MRI obtained did show mild changes of acute ischemia involving the left precentral and postcentral gyrus. Moderate changes of chronic microvascular ischemia. Mild volume loss. 2D echo demonstrated The left ventricular ejection fraction is 60 %. Stage 1 diastolic dysfunction. Mild concentric left ventricular hypertrophy. The left atrium is mildly enlarged. Structually normal valves. ? Case was discussed with [facility] patient discharged on DAPT in addition to high-dose statin therapy as well as a 30-day event monitor. Patient to follow-up with neurology as well as cardiology as outpatient 2. Acute hypertensive urgency ? Patient presented with markedly elevated blood pressure of 185/100. Admitted to monitored bed permissive hypertension protocol followed in view of the fact the patient was admitted for possible stroke ? Did increase patient's amlodipine from 5 mg to 10 mg on discharge in addition to her losartan 3. Dyslipidemia ?Patient is on statin therapy, continued at home dose 4. Morbid obesity (class III obesity) with BMI of 50.0 ? Complicating care weight loss advised 5. Obstructive sleep apnea ? Patient is on BiPAP at night consistent use encouraged 6. DVT prophylaxis ? On enoxaparin Time spent in the patient's overall evaluation,decision-making process, review of diagnostic data, adjustment of management, discussion with other providers, nursing nursing and ancillary staff involved in patient's care documentation, 38 Minutes Medications at Discharge Home Medications aspirin 81 mg tablet,delayed release (Adult Aspirin Regimen) 81 mg PO DAILY 01/08/25 losartan 100 mg tablet 100 mg PO DAILY 01/08/25 amlodipine 10 mg tablet 10 mg PO DAILY #90 tabs 01/09/25 atorvastatin 80 mg tablet 80 mg PO QHS #90 tabs 01/09/25 clopidogrel 75 mg tablet 75 mg PO DAILY #21 tabs 01/09/25 hydrochlorothiazide 12.5 mg tablet 12.5 mg PO DAILY #90 tabs 01/09/25 Physical Exam Narrative GENERAL: cooperative HEENT: Atraumatic; normocephalic EYES; Anicteric, Normal Conjunctiva NECK; supple, normal thyroid, RESPIRATORY: Diminished to auscultation CARDIOVASCULAR: Regular S1 S2, GI: soft, normoactive bowel sounds, : No Renal angle tenderness; EXTREMITIES: No edema, no clubbing, MUSCULOSKELETAL: no muscle wasting NEURO: Awake; no lateralizing signs. SKIN: No Rash PSYCH; Flat affect Weight / BMI Weight Weight: 153.7 kg Body Mass Index (BMI) 50.0 ABG / Lab / Microbiology Data 01/09/25 06:55 01/09/25 06:55 Laboratory: Laboratory Results - last 24 hr 01/08/25 13:15: WBC 9.3, RBC 4.35 L, Hgb 13.8, Hct 41.0, MCV 94.3 H, MCH 31.7, MCHC 33.7, RDW Std Deviation 45.7 H, RDW Coeff of Loree 13.3, Plt Count 178, MPV 10.4, Immature Gran % (Auto) 0.500, Neut % (Auto) 69.1, Lymph % (Auto) 19.2, [place] % (Auto) 9.5, Eos % (Auto) 1.2, Baso % (Auto) 0.5, Absolute Neuts (auto) 6.4, Absolute Lymphs (auto) 1.79, Nucleated RBC % 0, Platelet Estimate ADEQUATE, PT 12.7, INR 0.9, APTT Cancelled, Sodium 135, Potassium 4.3, Chloride 104, C arbon Dioxide 20.6 L, Anion Gap 10, BUN 14, Creatinine 1.05, Estim Creat Clear Calc 117.75, Est GFR (MDRD) Non-Af 84, BUN/Creatinine Ratio 13.0, Glucose 104 H, Calcium 8.9, Troponin T High Sens 11 01/08/25 14:08: APTT 21.7 L 01/08/25 16:30: Troponin T Hi Sens 2 Hr 11 01/08/25 18:02: POC Glucose 113 H 01/08/25 18:29: Troponin T Hi Sens 4Hr 9 01/09/25 05:49: POC Glucose 106 01/09/25 06:55: WBC 8.5, RBC 4.30 L, Hgb 14.0, Hct 40.7, MCV 94.7 H, MCH 32.6 H, MCHC 34.4, RDW Std Deviation 46.7 H, RDW Coeff of Loree 13.5, Plt Count 245, MPV 10.3, Immature Gran % (Auto) 0.400, Neut % (Auto) 73.1 H, Lymph % (Auto) 18.9 L, [place] % (Auto) 6.5, Eos % (Auto) 0.9, Baso % (Auto) 0.2, Absolute Neuts (auto) 6.2, Absolute Lymphs (auto) 1.61, Nucleated RBC % 0, Sodium 140, Potassium 4.2, Chloride 105, Carbon Dioxide 24.4, Anion Gap 10, BUN 13, Creatinine 1.03, Estim Creat Clear Calc 119.09, Est GFR (MDRD) Non-Af 86, BUN/Creatinine Ratio 12.3, G [place] 105 H, Hemoglobin A1c 5.8 H, Calcium 9.0, Triglycerides 158, Cholesterol 150, LDL Cholesterol, Calc 88, VLDL Cholesterol 32, HDL Cholesterol 35 L, Cholesterol/HDL Ratio 4.35, TSH 1.330 Radiography Diagnostic Testing: Radiology Impression Head/Neck CTA 01/08/25 12:54 IMPRESSION: Normal CTA head/neck. Reading Location: [facility] Brain MRI 01/09/25 05:55 IMPRESSION: 1. Mild changes of acute ischemia involving the left precentral and postcentral gyrus. 2. Moderate changes of chronic microvascular ischemia. Mild volume loss. Stroke Alert: Ischemia The critical findings in the findings and impression above were relayed directly by me by telephone to MD Lauren on 01/09/2025 at 10:45 am with readback verification. Reading Location: [facility] Echocardiogram 01/09/25 05:55 Interpretation Summary The left ventricular ejection fraction is 60 %. Stage 1 diastolic dysfunction. Mild concentric left ventricular hypertrophy. The left atrium is mildly enlarged. Structually normal valves. The study was technically difficult. Contrast injection was performed. Ordering Physician: Benji Blanton Referring Physician: MARILYN GORDON Performed By: Rosa Elena Rose RCS D/C Instructions Discharge Activity: Return to Normal Activity Call your doctor if you observe: Fever of 101 or Higher, Shortness of breath, Fainting spells and Chest pain DC O2, CPAP, BIPAP Needs Home O2 Discharge instructions: No Meaningful Use Info Meaningful Use Meaningful Use Diagnoses (Choose all that apply): Ischemic CVA CVA Therapy Assessed for PT,OT and/or ST?: Yes Ischemic Stroke Antithrombotic order at d/c?: Yes Dx of Atrial fib/flutter?: No Statins at discharge?: Yes If patient is 75 or younger, pt will be discharged on HIGH intensity statin.: Y es Primary Dx Acute Ischemic CVA?: Yes IV thrombolytic ordered during stay?: No Reason IV thrombolytic not ordered: Treatment not Indicated Discharge Plan Admission Admit Date/Time: 01/08/25 14:09 Attending Provider: Kristian Aguilar Primary Care Provider: Marilyn Gordon NP Consulting Providers: Atilio Chavarria; Malcolm Ortiz; Marjorie Smipson; Monica Restrepo; Ariana De La Vega; Kvng Schulz; Belén Jane; Jose Barbosa; Wes Christie; Tramaine Foote; Cassandra Cowan; Katey Nowak; Ramez Lagos; Ruthie Wade; Amy Viveros; Yamilex Gray; Bishop Huggins; Zehra Gibbs; Balbir Armijo; Idania Worthy; Diana Sykes; Benji Blanton Discharge Orders/Prescriptions Prescriptions: New atorvastatin 80 mg Tablet 80 mg PO QHS Qty: 90 0RF clopidogrel 75 mg Tablet 75 mg PO DAILY Qty: 21 0RF hydrochlorothiazide 12.5 mg tablet 12.5 mg PO DAILY Qty: 90 0RF amlodipine 10 mg tablet 10 mg PO DAILY Qty: 90 0RF Continued aspirin [Adult Aspirin Regimen] 81 mg tablet,delayed release (DR/EC) 81 mg PO DAILY losartan 100 mg tablet 100 mg PO DAILY Discontinued amlodipine 5 mg tablet 5 mg PO DAILY atorvastatin [Lipitor] 40 mg tablet 40 mg PO DAILY Other Ambulatory Orders: 30 Day Event Recorder Preventi (Urgent) Timeframe: 1 Day Facility: [facility] - Location: Cardiovascular Services Ordered By: Dr. Kristian Aguilar Referrals / Follow Up: [facility] [Provider Group] - Within 2 Weeks Iron Wilson MD [Non-Staff -Ordering Privileges, Neurology] - Within 1 Month Marilyn Gordon NP, [employer] [Primary Care Provider, Family Practice] - Within 1 Week Disposition Disposition (needs filled in before D/C Order can be placed): Home, Self Care Charges/Coding Visit Charges Inpatient E&M: 62665 Disch Hosp >30min
--- NOTE | 2025-01-09 13:37 | CASEMGMT ---
Social Work SW completed a PHQ9 with the patient and he scored a 0. L. DEVAN Coley
--- NOTE | 2025-01-09 13:39 | CASEMGMT ---
Social Work SW completed a the POA/LW paperwork with the patient. A copy was put in the chart. DEVAN Gamboa
[2025-01-09 13:55] VITALS: BP 154/97; PULSE 66; RESP 18; TEMP 36.3; O2SAT 99
--- NOTE | 2025-01-09 14:41 | CASEMGMT ---
Patient has order for discharge. RN CM in to discuss needs at discharge. Patient denies needs or help at discharge. Patient had no further quetions or concerns.
--- NOTE | 2025-01-09 14:45 | PHA.DC.MC.R ---
Pharmacy [facility] Counseling Pharmacy Service has performed discharge medication reconciliation and counseling for this patient. 1. CLOPIDOGREL 75MG PO DAILY X 21 DAYS 2. HYDROCHLOROTHIAZIDE 12.5MG PO DAILY 3. LIPITOR INCREASED TO 80MG 4. AMLODIPINE INCREASED TO 10MG The patient's discharge medication list was reviewed for discrepancies and discrepancies were resolved. The patient was counseled on the following discharge medications and changes in medications for homegoing were reviewed. The Reason for Use, instructions for use, and potential side effects were reviewed for all new medications. The patient's questions regarding all of their medications were answered. The patient was able to verbally demonstrate an understanding of their discharge medications. Medications at Discharge Home Medications aspirin 81 mg tablet,delayed release (Adult Aspirin Regimen) 81 mg PO DAILY 01/08/25 losartan 100 mg tablet 100 mg PO DAILY 01/08/25 amlodipine 10 mg tablet 10 mg PO DAILY #90 tabs 01/09/25 atorvastatin 80 mg tablet 80 mg PO QHS #90 tabs 01/09/25 clopidogrel 75 mg tablet 75 mg PO DAILY #21 tabs 01/09/25 hydrochlorothiazide 12.5 mg tablet 12.5 mg PO DAILY #90 tabs 01/09/25
== END 2025-01-09 13:32 | disposition home or self-care (01) ==
LOC: ED 13:53 → PCU 14:23
PROVIDERS: Admitting Provider Internal Medicine; Emergency Provider Student in an Organized Health Care Education/Training Program; PCP Nurse Practitioner Family; Visit Provider Internal Medicine
DX: I63.9 Cerebral infarction, unspecified (principal); Z68.43 Body mass index [BMI] 50.0-59.9, adult; E66.813 Obesity, class 3; E66.2 Morbid (severe) obesity with alveolar hypoventilation; G45.9 Transient cerebral ischemic attack, unspecified; I10 Essential (primary) hypertension; R73.03 Prediabetes; E78.5 Hyperlipidemia, unspecified; Z79.82 Long term (current) use of aspirin; Z79.899 Other long term (current) drug therapy; R47.1 Dysarthria and anarthria; R29.703 NIHSS score 3; R29.898 Other symptoms and signs involving the musculoskeletal system; H53.8 Other visual disturbances; I16.0 Hypertensive urgency; Z99.89 Dependence on other enabling machines and devices; R20.0 Anesthesia of skin; R53.83 Other fatigue; R53.1 Weakness
CPT/HCPCS: 36415; 70450; 70496; 70498; 70551; 80048; 80061; 82962; 83036; 84443; 84484; 85025; 85610; 85730; 93005; 93306; 94668; 96360; 96361; 96372; 97802; 99221; 99285; 99406; Q9957; Q9967; A4216; C8929; G0378